=== PATIENT | female | born 1965 | race Caucasian/White ===

== ENCOUNTER → 2019-10-01 10:55 | Outpatient (BNVA) | payer MEDICARE, MEDICAID, SELFPAY | PROVIDERS: Family Provider Nurse Practitioner Family; PCP Nurse Practitioner Family; Referring Provider Family Medicine; Visit Provider Internal Medicine Rheumatology | DX: L40.59 Other psoriatic arthropathy (principal); L03.90 Cellulitis, unspecified; M05.79 Rheumatoid arthritis with rheumatoid factor of multiple sites without organ or systems involvement; L40.0 Psoriasis vulgaris; M79.7 Fibromyalgia; J44.9 Chronic obstructive pulmonary disease, unspecified; F17.200 Nicotine dependence, unspecified, uncomplicated; Z79.52 Long term (current) use of systemic steroids | CPT/HCPCS: 36415; 82565; 84460; 85025; 85651; 86140; 99213 ==

== ENCOUNTER → 2019-10-01 11:49 | Outpatient (BNVA) | payer MEDICARE, MEDICAID, SELFPAY | PROVIDERS: Family Provider Nurse Practitioner Family; PCP Nurse Practitioner Family; Referring Provider Family Medicine; Visit Provider Internal Medicine Rheumatology | DX: M05.79 Rheumatoid arthritis with rheumatoid factor of multiple sites without organ or systems involvement (principal); L40.59 Other psoriatic arthropathy; L03.90 Cellulitis, unspecified; L40.0 Psoriasis vulgaris; M79.7 Fibromyalgia; J44.9 Chronic obstructive pulmonary disease, unspecified; F17.200 Nicotine dependence, unspecified, uncomplicated | CPT/HCPCS: 85025 ==

== ENCOUNTER → 2019-10-15 10:51 | Outpatient (BNVA) | payer MEDICARE, MEDICAID, SELFPAY | PROVIDERS: Family Provider Family Medicine; Visit Provider Nurse Practitioner Family | DX: I51.7 Cardiomegaly (principal); I70.90 Unspecified atherosclerosis; R05 Cough | CPT/HCPCS: 71046; 80053; 85025 ==

== ENCOUNTER → 2019-11-01 15:10 | Outpatient (BNVA) | payer MEDICARE, MEDICAID, SELFPAY | PROVIDERS: Family Provider Family Medicine; PCP Family Medicine; Visit Provider Internal Medicine Rheumatology | DX: M19.90 Unspecified osteoarthritis, unspecified site (principal); Z79.899 Other long term (current) drug therapy; M06.4 Inflammatory polyarthropathy; L30.9 Dermatitis, unspecified; Z71.89 Other specified counseling | CPT/HCPCS: 36415; 84132; 85025; 99214 ==

== ENCOUNTER → 2019-11-01 17:11 | Outpatient (BNVA) | payer MEDICARE, MEDICAID, SELFPAY | PROVIDERS: Family Provider Family Medicine; PCP Family Medicine; Visit Provider Internal Medicine Rheumatology | DX: M19.90 Unspecified osteoarthritis, unspecified site (principal); Z79.899 Other long term (current) drug therapy; M06.4 Inflammatory polyarthropathy; L30.9 Dermatitis, unspecified; Z71.89 Other specified counseling | CPT/HCPCS: 85025 ==

== ENCOUNTER 2019-11-11 12:42 | Outpatient (CLI) | payer MEDICARE, MEDICAID, SELFPAY ==
--- NOTE | 2019-11-11 12:54 | XR_ITS ---
WS: [id number] HAND LEFT TECHNIQUE: 3 views of the left hand CLINICAL INFORMATION: inflammatory arthitis COMPARISON: None. FINDINGS: Normal metacarpals. Normal MCP joint. Metacarpal heads are normal in appearance. Mild IP joint narrow ing.. No evidence of acute fracture or dislocation. Mild osteopenia. Radiocarpal joint: Mild narrowing Carpal bones: Normal. XR/XR hand LT min 3V* [id number] IMPRESSION: Mild IP joint narrowing and osteopenia. No significant erosions.
--- NOTE | 2019-11-11 12:54 | XR_ITS ---
WS: [id number] FOOT RIGHT TECHNIQUE: 3 views of the right foot CLINICAL INFORMATION: inflammatory arthitis COMPARISON: None. FINDINGS: Normal anatomic alignment. Degenerative narrowing at the first DIP and IP joints. No significant eros uli changes. Achilles calcaneal spurring Normal tarsal metatarsal alignment. Normal calcaneus. Normal visualized talar dome. XR/XR foot RT min 3V* [id number] IMPRESSION: No significant erosive changes
--- NOTE | 2019-11-11 12:54 | XR_ITS ---
WS: [id number] HAND RIGHT TECHNIQUE: 3 views of the right hand CLINICAL INFORMATION: inflammatory arthitis COMPARISON: None. FINDINGS: Normal metacarpals. Normal MCP joint. Metacarpal heads are normal in appearance. Mild IP joint narrow ing. Osteopenia.. No evidence of acute fracture or dislocation. Radiocarpal joint: Mild narrowing Carpal bones: Mild degenerative narrowing at the first CMC. IMPRESSION: No significant erosive changes.
--- NOTE | 2019-11-11 12:54 | XR_ITS ---
WS: [id number] FOOT LEFT TECHNIQUE: 3 views of the left foot CLINICAL INFORMATION: inflammatory arthitis COMPARISON: None. FINDINGS: Degenerative narrowing first DIP and IP joints. No significant erosive changes. Osteopenia. Plantar a nd Achilles calcaneal spurring. Normal tarsal metatarsal alignment. Normal visualized talar dome. No acute findings. XR/XR foot LT min 3V* [id number] IMPRESSION: No significant erosive changes
== END 2019-11-11 12:43 | disposition home or self-care (01) ==
LOC: RADWPI 12:46
PROVIDERS: Family Provider Family Medicine; PCP Family Medicine; Visit Provider Internal Medicine Rheumatology
DX: M19.90 Unspecified osteoarthritis, unspecified site (principal); M85.842 Other specified disorders of bone density and structure, left hand
CPT/HCPCS: 73130; 73630

== ENCOUNTER → 2020-01-05 16:30 | Outpatient (BNVA) | payer MEDICARE, MEDICAID, SELFPAY | PROVIDERS: Family Provider Family Medicine; PCP Family Medicine; Visit Provider Family Medicine | DX: J44.9 Chronic obstructive pulmonary disease, unspecified (principal); I10 Essential (primary) hypertension; M62.838 Other muscle spasm; K21.9 Gastro-esophageal reflux disease without esophagitis; M06.9 Rheumatoid arthritis, unspecified; E03.9 Hypothyroidism, unspecified; E78.5 Hyperlipidemia, unspecified; J44.1 Chronic obstructive pulmonary disease with (acute) exacerbation | CPT/HCPCS: 80053; 80061; 84443; 85025 ==

== ENCOUNTER → 2020-02-24 15:22 | Outpatient (BNVA) | payer MEDICARE, MEDICAID, SELFPAY | PROVIDERS: Family Provider Family Medicine; PCP Family Medicine; Visit Provider Internal Medicine Rheumatology | DX: M06.00 Rheumatoid arthritis without rheumatoid factor, unspecified site (principal); M19.90 Unspecified osteoarthritis, unspecified site; L30.9 Dermatitis, unspecified; F17.210 Nicotine dependence, cigarettes, uncomplicated; Z79.52 Long term (current) use of systemic steroids; Z79.899 Other long term (current) drug therapy | CPT/HCPCS: 99214 ==

== ENCOUNTER → 2020-07-03 13:32 | Outpatient (BNVA) | payer MEDICARE, MEDICAID, SELFPAY | PROVIDERS: Family Provider Family Medicine; PCP Family Medicine; Visit Provider Family Medicine | DX: I10 Essential (primary) hypertension (principal); E78.2 Mixed hyperlipidemia; E03.9 Hypothyroidism, unspecified | CPT/HCPCS: 80053; 80061; 84443; 85025 ==

== ENCOUNTER 2020-07-09 16:43 | Emergency (ER) | payer MEDICARE, MEDICAID, SELFPAY ==
[2020-07-09 16:49] VITALS: BP 110/69; PULSE 92; RESP 14; TEMP 36.7; O2SAT 99; BMI 30.2
--- NOTE | 2020-07-09 17:23 | ED_ITS ---
HPI - Skin/Abscess/Foreign Bdy General: Chief complaint: Skin/Abscess/Foreign Body Stated complaint: ABSCESS/SWELLING TO LOWER ABDOMEN Time Seen by Provider: 07/09/20 16:58 Source: patient Mode of arrival: ambulatory Limitations: no limitations History of Present Illness: complaint: rash and abscess/boil Onset (ago): week(s) (1) Severity: moderate Quality: burning Pain Consistency: constant Relieving factors: none Exacerbating factors: none Context: none Associated symptoms: Deny arthralgias, chills, cough, fever(s), itching, myalgias, nausea, rigidity, short of breath or vomiting Review of Systems General: Reports: 10 or more systems reviewed and unremarkable except in HPI and below Const: Denies: fever(s) or chills Eyes: Denies: change in vision or blurry vision ENMT: Denies: throat pain, enlarged tonsils, odynophagia, hoarseness, mouth pain or swelling of lips/tongue Card: Denies: palpitations, irregular heart rhythm, edema or swelling of feet/ankles Resp: Denies: dyspnea, productive cough or non-productive cough GI: Denies: nausea or vomiting : Denies: flank pain, difficulty voiding, dysuria, urinary frequency, urinary urgency or urinary hesitancy Musc: Denies: neck pain, back pain or extremity swelling Skin/Breast: Reports: rash, erythema and sores; Denies: pruritus Neuro: Denies: headache(s), numbness in extremities or weakness in extremities Endo: Denies: polyuria, polydipsia or tired all the time PFSH ED PFSH: Medical History (Reviewed 07/09/20 @ 17:27 by Panfilo Erwin [place] [facility] [facility] [place] Eczema Essential (primary) hypertension Fibromyalgia Hyperlipidemia Immunization counseling Inflammatory arthritis 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 Seronegative rheumatoid arthritis Surgical History (Reviewed 07/09/20 @ 17:27 by Panfilo Erwin MD, [facility] [place] H/O thyroidectomy History of tonsillectomy Hx of cholecystectomy Hx of total cystectomy Family History (Reviewed 07/09/20 @ 17:27 by Panfilo Erwin MD, [facility] [place] Mother Rheumatoid arthritis Father Rheumatoid arthritis Leukemia Denies family history of Lupus Social History (Reviewed 07/09/20 @ 17:27 by Panfilo Erwin MD, [facility] [place] Smoking and tobacco status: current every day smoker cigarettes Packs smoked per day: 0.25 Years cigarettes smoked: 25 Second hand smoke exposure: Yes Alcohol intake: never Marital status: Current occupational status: disabled History of recent travel: No Current gender identity: Female Physical Exam Const: COMMON NORMALS: no acute distress, average body habitus, patient oriented x3, no limitations, healthy appearing, alert and well nourished HENMT: COMMON NORMALS: normocephalic, atraumatic and moist oral mucous membranes HEAD & SCALP: normocephalic and atraumatic Eye: COMMON NORMALS: Equal, round and reactive pupils present, EOMs intact bilaterally, conjunctivae normal and no scleral icterus CONJUNCTIVA: Yes conjunctivae normal PUPIL: Yes Equal, round and reactive pupils present Neck/C-Spine: COMMON NORMALS: no meningeal signs and no JVD Resp: COMMON NORMALS: normal respiratory effort, No retractions, No use of accessory muscles, clear to auscultation bilaterally and percussion normal AUSCULTATION: clear to auscultation bilaterally PERCUSSION: percussion normal Cardio: COMMON NORMALS: no JVD, regular rate, regular rhythm, S1 normal heart sound present, S2 normal heart sound present, No gallops present (Cardio), No clicks present (Cardio), No murmurs present (Cardio), No rub (Cardio) and Peripheral pulses 2+ throughout RATE: regular rate RHYTHM: regular rhythm HEART SOUNDS: S1 normal heart sound present and S2 normal heart sound present PERIPHERAL PULSES: Peripheral pulses 2+ throughout GI: COMMON NORMALS: Normal to inspection, nondistended, normoactive bowel sounds present, Soft to palpation, non-tender, No hepatosplenomegaly present, no masses and no bruits PALPATION: Yes Soft to palpation and Yes No hepatosplenomegaly present Extremity: COMMON NORMALS: normal to inspection, full ROM, capillary refill normal, no calf tenderness and no pedal edema Neuro: COMMON NORMALS: patient oriented x3 SENSORIUM/ORIENTATION: Yes alert MENINGEAL SIGNS: Yes no meningeal signs Skin: COMMON NORMALS: no wounds, turgor normal, no jaundice, no petechiae and no mottling GENERAL SKIN EXAM: turgor normal WOUNDS: Yes wounds noted (There is an area of erythema on her left lower abdominal wall with a central open area. No drainage noted from the wound. The area is tender, indurated, warm. Area of erythema is about 8 cm) Course ED course: Patient with cellulitis of the abdominal wall that is uncomplicated. No indication for I&D. She is given oral antibiotic and pain medication in the ED and discharged home. Vital Signs: Vital signs: Vital Signs Temperature 98.0 F 07/09/20 16:49 Pulse Rate 92 07/09/20 16:49 Respiratory Rate 14 07/09/20 16:49 Blood Pressure 110/69 07/09/20 16:49 Pulse Oximetry 99 07/09/20 16:49 MDM - Skin/Abscess/Foreign Bdy MDM Narrative: Medical decision making narrative: Patient with symptoms consistent with cellulitis of the abdominal wall. The wound is indurated and not ready for an I&D. She is discharged home on oral antibiotics. Medical Records: Attestation: I reviewed the patient's medical records. Discharge Plan Discharge Patient Disposition: Home Clinical Impression: Abdominal wall cellulitis Condition: Stable Prescriptions: New doxycycline hyclate 100 mg capsule 100 mg PO BID 7 Days Qty: 14 RF: 0 [place] 5-325 mg tablet 1 tab PO Q8H PRN (Reason: pain) Qty: 6 RF: 0 Continued albuterol sulfate 2.5 mg /3 mL (0.083 %) solution for nebulization 2.5 mg INHALATION Q4H PRN (Reason: shortness of breath or wheezing) Qty: 90 RF: 3 albuterol sulfate [Ventolin HFA] 90 mcg/actuation HFA aerosol inhaler 2 puff INHALATION QID PRN (Reason: shortness of breath or wheezing) Qty: 18 RF: 3 folic acid 1 mg tablet 1 mg PO QDAY Qty: 90 RF: 3 methotrexate sodium 2.5 mg tablet See Rx Instructions PO .COMPLEX Qty: 40 RF: 3 prednisone 10 mg tablet See Rx Instructions PO QDAY Qty: 40 RF: 3 triamcinolone acetonide 0.1 % ointment 1 applic TOPICAL BID Qty: 30 RF: 3 atorvastatin 40 mg tablet 40 mg PO DAILY Qty: 30 RF: 4 carvedilol 25 mg tablet 25 mg PO BID Qty: 60 RF: 4 cholecalciferol (vitamin D3) 50 mcg (2,000 unit) tablet 2,000 unit PO DAILY Qty: 30 RF: 5 clonidine HCl 0.1 mg tablet 0.1 mg PO TID Qty: 90 RF: 5 clopidogrel 75 mg tablet 75 mg PO QDAY Qty: 30 RF: 5 cyclobenzaprine 10 mg tablet 10 mg PO BID PRN (Reason: muscle spasm) Qty: 60 RF: 2 diltiazem HCl [Cardizem] 30 mg tablet 30 mg PO BID Qty: 60 RF: 5 fluoxetine 20 mg capsule 40 mg PO QDAY Qty: 60 RF: 2 Trelegy Ellipta 100-62.5-25 mcg blister with device 1 inh INHALATION DAILY Qty: 28 RF: 3 hydroxyzine HCl 25 mg tablet 25 mg PO QID PRN (Reason: anxiety) Qty: 120 RF: 2 levothyroxine 88 mcg capsule 88 mcg PO DAILY Qty: 30 RF: 5 pantoprazole 40 mg tablet,delayed release (DR/EC) 40 mg PO DAILY Qty: 30 RF: 3 potassium chloride 20 mEq tablet extended release 20 meq PO DAILY Qty: 30 RF: 2 Claritin-D 12 Hour 5-120 mg tablet extended release 12 hr 1 tab PO Q12H Qty: 30 RF: 1 mupirocin calcium 2 % cream 1 applic TOPICAL TID Qty: 30 RF: 0 Discharge Orders: Discharge Order (Routine); Ordered 07/09/20 Ordered By: Panfilo Erwin Referrals: Genesis Ochoa MD [Primary Care Provider] - 1-3 days Discharge Diet: Usual diet Discharge Activity: Resume usual activity Patient Instructions: Cellulitis (ED) Activity Restrictions/Additional Instructions: Return for any new or worsening symptoms. Take the medications as prescribed. Follow-up with your primary care provider within 3 days. Coding Level of Care Code ED Car Customizer for Chg Fwd Exam Comprehensive
[2020-07-09] MEDS: doxycycline 100 mg Tablet PO (17:45)
[2020-07-09] MEDS: HYDROcodone-acetaminophen 5-325 mg Tablet 1 TAB PO (17:45)
[2020-07-09 18:29] VITALS: BP 116/74; PULSE 75; RESP 18; O2SAT 98
== END 2020-07-09 18:37 | disposition home or self-care (01) ==
PROVIDERS: Emergency Provider Family Medicine; PCP Family Medicine
DX: L03.311 Cellulitis of abdominal wall (principal); Z79.02 Long term (current) use of antithrombotics/antiplatelets; I10 Essential (primary) hypertension; E78.5 Hyperlipidemia, unspecified; F17.210 Nicotine dependence, cigarettes, uncomplicated
CPT/HCPCS: 12345; 99281; 99283

== ENCOUNTER 2020-07-12 18:08 | Emergency (ER) | payer MEDICARE, MEDICAID, SELFPAY ==
[2020-07-12 18:10] VITALS: BP 163/65; PULSE 90; RESP 20; TEMP 36.6; O2SAT 96; BMI 30.2
--- NOTE | 2020-07-12 18:56 | W.ED.SKABFB ---
HPI - Skin/Abscess/Foreign Bdy General: Chief complaint: Skin/Abscess/Foreign Body Stated complaint: abcess on abd Time Seen by Provider: 07/12/20 18:34 History of Present Illness: HPI narrative: Patient returns the ER for recheck her abdominal wound. She not sure what the wound was caused from but she said did not feel like it is improving any MD complaint: insect bite/sting Onset (ago): day(s) Tetanus up to date: yes Severity: mild Severity scale (1-10): 5 Quality: burning Pain Consistency: constant Relieving factors: none Exacerbating factors: none Context: none Associated symptoms: Reports no associated symptoms; Deny chills, fever(s), nausea or vomiting Treatments prior to arrival: attempted to drain pus at home Review of Systems Const: Denies: fever(s), chills or body aches Eyes: Denies: change in vision or blurry vision ENMT: Denies: throat pain or nasal congestion Card: Denies: chest pain or dyspnea on exertion Resp: Denies: dyspnea, productive cough or non-productive cough GI: Denies: abdominal pain, nausea or vomiting Musc: Denies: extremity pain Skin/Breast: Reports: erythema (Center of her abdomen seems to be spreading somewhat not really draining much patient is try to squeeze on get stuff out but not anything out know what it was caused by either) and skin tenderness; Denies: rash Neuro: Denies: headache(s) Psych: Denies: anxiety or depression Lewis/Lymph: Denies: easy bruising PFSH ED PFSH: Medical History (Updated 07/12/20 @ 18:54 by YOHANNES Watters) Eczema Essential (primary) hypertension Fibromyalgia Hyperlipidemia Immunization counseling Inflammatory arthritis Other [facility] (current) drug therapy Seronegative rheumatoid arthritis Surgical History H/O thyroidectomy History of tonsillectomy Hx of cholecystectomy Hx of total cystectomy Family History Mother Rheumatoid arthritis Father Rheumatoid arthritis Leukemia Denies family history of Lupus Social History (Reviewed 07/09/20 @ 17:27 by Panfilo Erwin MD, [facility] [place] Smoking and tobacco status: current every day smoker cigarettes Packs smoked per day: 0.25 Years cigarettes smoked: 25 Second hand smoke exposure: Yes Alcohol intake: never Marital status: Current occupational status: disabled History of recent travel: No Current gender identity: Female Physical Exam Const: COMMON NORMALS: no acute distress Psych: COMMON NORMALS: mental status grossly normal Skin: WOUNDS: Yes wounds noted (Has a central area of slight eschar that opened up after lidocaine prep and Betadine and there is no pus in the wound and 110 a culture redness is about half dollar size with eschar about pea-sized in the center the redness spreads out across her stretch larson probably about 10 or 12 inches all very surface slightly tender) Course Vital Signs: Vital signs: Vital Signs Temperature 97.9 F 07/12/20 18:10 Pulse Rate 90 07/12/20 18:10 Respiratory Rate 20 H 07/12/20 18:10 Blood Pressure 163/65 07/12/20 18:10 Pulse Oximetry 96 07/12/20 18:10 Discharge Plan Discharge Patient Disposition: Home Clinical Impression: Brown recluse spider bite Qualifiers: Encounter type: subsequent encounter Injury intent: accidental or unintentional Qualified Code(s): T63.331D - Toxic effect of venom of brown recluse spider, accidental (unintentional), subsequent encounter Condition: Stable Prescriptions: New hydrocodone-acetaminophen 7.5-325 mg tablet 1 tab PO TID PRN (Reason: pain) Qty: 10 RF: 0 No Action albuterol sulfate 2.5 mg /3 mL (0.083 %) solution for nebulization 2.5 mg INHALATION Q4H PRN (Reason: shortness of breath or wheezing) Qty: 90 RF: 3 albuterol sulfate [Ventolin HFA] 90 mcg/actuation HFA aerosol inhaler 2 puff INHALATION QID PRN (Reason: shortness of breath or wheezing) Qty: 18 RF: 3 folic acid 1 mg tablet 1 mg PO QDAY Qty: 90 RF: 3 methotrexate sodium 2.5 mg tablet See Rx Instructions PO .COMPLEX Qty: 40 RF: 3 prednisone 10 mg tablet See Rx Instructions PO QDAY Qty: 40 RF: 3 triamcinolone acetonide 0.1 % ointment 1 applic TOPICAL BID Qty: 30 RF: 3 atorvastatin 40 mg tablet 40 mg PO DAILY Qty: 30 RF: 4 carvedilol 25 mg tablet 25 mg PO BID Qty: 60 RF: 4 cholecalciferol (vitamin D3) 50 mcg (2,000 unit) tablet 2,000 unit PO DAILY Qty: 30 RF: 5 clonidine HCl 0.1 mg tablet 0.1 mg PO TID Qty: 90 RF: 5 clopidogrel 75 mg tablet 75 mg PO QDAY Qty: 30 RF: 5 cyclobenzaprine 10 mg tablet 10 mg PO BID PRN (Reason: muscle spasm) Qty: 60 RF: 2 diltiazem HCl [Cardizem] 30 mg tablet 30 mg PO BID Qty: 60 RF: 5 fluoxetine 20 mg capsule 40 mg PO QDAY Qty: 60 RF: 2 Trelegy Ellipta 100-62.5-25 mcg blister with device 1 inh INHALATION DAILY Qty: 28 RF: 3 hydroxyzine HCl 25 mg tablet 25 mg PO QID PRN (Reason: anxiety) Qty: 120 RF: 2 levothyroxine 88 mcg capsule 88 mcg PO DAILY Qty: 30 RF: 5 pantoprazole 40 mg tablet,delayed release (DR/EC) 40 mg PO DAILY Qty: 30 RF: 3 potassium chloride 20 mEq tablet extended release 20 meq PO DAILY Qty: 30 RF: 2 Claritin-D 12 Hour 5-120 mg tablet extended release 12 hr 1 tab PO Q12H Qty: 30 RF: 1 mupirocin calcium 2 % cream 1 applic TOPICAL TID Qty: 30 RF: 0 prednisone 10 mg tablet 10 mg PO DAILY Qty: 30 RF: 0 doxycycline hyclate 100 mg capsule 100 mg PO BID 7 Days Qty: 14 RF: 0 [place] 5-325 mg tablet 1 tab PO Q8H PRN (Reason: pain) Qty: 6 RF: 0 Discharge Orders: Discharge Order (Routine); Ordered 07/12/20 Ordered By: Jacky Gu Referrals: Genesis Ochoa MD [Primary Care Provider] - Discharge Diet: Usual diet Discharge Activity: Resume usual activity Patient Instructions: Brown Recluse Spider Bite (ED) Activity Restrictions/Additional Instructions: Follow-up with medical provider as directed. Take medications as prescribed. Return to the ER or your medical provider if condition worsens. Please read and understand discharge instructions. If any questions ask please. Follow-up with your family medical provider for recheck in about 5 to 6 days Coding Level of Care Code ED Accounting Recruiter for Dom Casas
[2020-07-12] MEDS: HYDROcodone-acetaminophen 7.5-325 mg Tablet 1 TAB PO (19:17)
--- NOTE | 2020-07-12 19:25 | PC.NURSE ---
abdominal wound dressed with adhesive telfa pad with instructions to keep dressing in place for 24hrs then leave wound open to air while at home. Pt verbalized understanding
[2020-07-12 19:28] VITALS: BP 163/95; PULSE 90; RESP 18; O2SAT 96
== END 2020-07-12 19:15 | disposition home or self-care (01) ==
PROVIDERS: Emergency Provider Nurse Practitioner Family; PCP Family Medicine
DX: T63.331A Toxic effect of venom of brown recluse spider, accidental (unintentional), initial encounter (principal); Z79.02 Long term (current) use of antithrombotics/antiplatelets; I10 Essential (primary) hypertension; E78.5 Hyperlipidemia, unspecified; F17.210 Nicotine dependence, cigarettes, uncomplicated
CPT/HCPCS: 12345; 99282; 99283

== ENCOUNTER → 2020-07-18 10:27 | Outpatient (BNVA) | payer MEDICARE, MEDICAID, SELFPAY | PROVIDERS: PCP Family Medicine; Visit Provider Internal Medicine Rheumatology | DX: M06.00 Rheumatoid arthritis without rheumatoid factor, unspecified site (principal); L53.9 Erythematous condition, unspecified; Z79.899 Other long term (current) drug therapy; Z79.52 Long term (current) use of systemic steroids; M06.4 Inflammatory polyarthropathy; I51.7 Cardiomegaly; F17.210 Nicotine dependence, cigarettes, uncomplicated; L30.9 Dermatitis, unspecified | CPT/HCPCS: 99214 ==

== ENCOUNTER 2020-09-02 20:15 | Inpatient (IN) | payer MEDICARE, MEDICAID, SELFPAY ==
[2020-09-02] VITALS (8 sets, daily range): BP systolic 112–127; BP diastolic 69–109; PULSE 92–104; RESP 19–43; TEMP 38.4; O2SAT 94–97; BMI 28.3
--- NOTE | 2020-09-02 20:53 | XRR_ITS ---
PROCEDURE INFORMATION: Exam: XR Chest, 1 View Exam date and time: 09/02/2020 10:10 PM Age: 54 years old Clinical indication: Cough; Additional info: Respiratory distress/ covid SX TECHNIQUE: Imaging protocol: XR of the chest Views: 1 view. COMPARISON: CR XR chest 2V* [id number] 10/15/2019 10:57 AM FINDINGS: Lungs: There are ground-glass opacity seen in the right lower hemithorax with some consolidation seen superimposed over the right hemidiaphragm, findings compatible with a right basilar pneumonia. Pleural space: Unremarkable. No pleural effusion. No pneumothorax. Heart/Mediastinum: Unremarkable. No cardiomegaly. Bones/joints: Unremarkable. XR/XR chest 1V portable [id number] IMPRESSION: Ground-glass opacities in the right lower hemithorax with consolidation superimposed over the right hemidiaphragm, findings compatible with a right basilar interstitial pneumonia. Imaging features can be seen with COVID-19 pneumonia, though are nonspecific and can occur with a variety of infectious and noninfectious processes.
--- NOTE | 2020-09-02 21:00 | ECG_ITS ---
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 Measurements Intervals [place] Rate: 96 P: 50 ME: 164 QRS: 24 QRSD: 89 T: 40 QT: 383 QTc: 484 Interpretive Statements SINUS RHYTHM POSSIBLE LEFT ATRIAL ENLARGEMENT [-0.1mV P WAVE IN V1/V2] NONSPECIFIC ST & T-WAVE ABNORMALITY Compared to ECG 03/20/2015 18:03:02 No significant changes Electronically Signed On 09-03-2020 10:59:11 OPERATIONS MANAGER by Gui Conway M.D. [email or web address]
[2020-09-02] MEDS: albuterol 8 gm MDI 2 PUFF INHALATION (21:39)
[2020-09-02 21:44] LABS: Basophils # 0.1 10^3/uL (0.0-0.1); Basophils % 0.2 %; Eosinophils # 0.1 10^3/uL (0.0-0.8); Eosinophils % 0.3 %; Hematocrit 38.3 % (37.0-47.0); Lymphocytes # 1.3 10^3/uL (0.8-4.8); Lymphocytes % 4.4 %; Mean Corpuscular HGB Conc 31.3 g/dL (30.0-36.0); Mean Corpuscular Hemoglobin 30.2 pg (28.0-34.0); Mean Corpuscular Volume 96.2 fL (81-99); Mean Platelet Volume 10.2 fL (7.4-10.4); Monocytes # 3.4 10^3/uL (0.2-0.9); Monocytes % 11.6 %; Neutrophils # 23.74 10^3/uL (1.8-7.7); Neutrophils % 82.1 %; Nucleated Red Blood Cells % 0 %; Platelet Count 369 10^3/cmm (130-400); Red Blood Count 3.98 10^6/uL (4.1-5.3); Red Cell Distribution Width 14.6 % (12.1-15.1); White Blood Count 28.9 10^3/uL (4.0-10.0)
[2020-09-02] MEDS: acetaminophen 325 mg Tablet 1000 MG PO (21:51)
[2020-09-02] MEDS: dexamethasone 4 mg/mL INJ 10 MG IM (21:53)
--- NOTE | 2020-09-02 21:53 | ED_ITS ---
Documented by User: Pro Middleton MD 09/02/20 23:56 HPI - COVID General: Chief Complaint: COVID symptoms Stated Complaint: ABD PAIN / FEVER / SHORTNESS OF BREATH Time Seen by Provider: 09/02/20 20:42 Triage information: Has fever, cough or shortness of breath . No known COVID + exposure last 14 days History of Present Illness: HPI Narrative: Patient is a 54-year-old female with past medical history of COPD who comes to the ER complaining of severe shortness of breath and respiratory distress with a fever of 101.1. She says her right lower ribs are hurting badly and it hurts to take a deep breath. BiPAP was placed shortly after arrival and her respiratory effort has improved significantly. No known history of Covid COVID 19 common symptoms: positive fever(s), chills, cough, non-productive cough, dyspnea, fatigue and body aches; negative headache(s), throat pain, nasal congestion, nausea, vomiting or diarrhea COVID 19 other sytmptoms: positive pleuritic pain, requiring oxygen and respiratory distress; negative chest pain or confusion Severity: severe and rapidly worsening Pertinent comorbid conditions: COPD/respiratory disease COVID Results: SARS-CoV-2 Antigen (Rapid) Negative (Negative) 09/02/20 21:50 09/02/20 Review of Systems General: Reports: 10 or more systems reviewed and unremarkable except in HPI and below Const: Reports: fever(s), chills, body aches and fatigue Eyes: Denies: change in vision, blurry vision or eye redness ENMT: Denies: throat pain, swelling of lips/tongue, ear or mastoid pain or nasal congestion Card: Denies: chest pain Resp: Reports: dyspnea, non-productive cough, wheezing and pain on inspiration GI: Denies: nausea, vomiting or diarrhea : Denies: flank pain, difficulty voiding, urinary frequency or urinary urgency Musc: Denies: neck pain, back pain, extremity pain, joint pain, joint redness, limited range of motion or muscle weakness Skin/Breast: Denies: rash, pruritus, erythema, skin pain or skin tenderness Neuro: Denies: headache(s), numbness in extremities, weakness in extremities, sensory changes, difficulty walking, dizziness, confusion or Slurred speech present Psych: Denies: anxiety or depression Endo: Denies: polyuria All/Imm: Denies: urticaria, throat swelling or tongue swelling PFSH ED PFSH: Medical History Aortic regurgitation Eczema Essential (primary) hypertension Fibromyalgia High risk medication use Hyperlipidemia Immunization counseling Inflammatory arthritis Other correction (current) drug therapy Seronegative rheumatoid arthritis Surgical History H/O thyroidectomy History of tonsillectomy Hx of cholecystectomy Hx of total cystectomy Family History Mother Rheumatoid arthritis Father Rheumatoid arthritis Leukemia Denies family history of Lupus Social History Smoking and tobacco status: current every day smoker cigarettes Packs smoked per day: 0.25 Years cigarettes smoked: 25 Second hand smoke exposure: Yes Alcohol intake: never Marital status: Current occupational status: disabled History of recent travel: No Current gender identity: Female Physical Exam Narrative: EXAM NARRATIVE: On arrival she is in moderate respiratory distress with very shallow respirations and tachypnea. Tachycardia. Wheezes audible. She is splinting and using accessory muscles to respirate as well. Const: COMMON NORMALS: average body habitus, patient oriented x3, no limitations, healthy appearing, alert and well nourished GENERAL APPEARANCE: in distress, anxious, disheveled and ill appearing ORIENTATION/CONSCIOUSNESS: Yes awake, Yes oriented to person, Yes oriented to place and Yes oriented to time HENMT: COMMON NORMALS: normocephalic, external ears normal and Normal external nose present HEAD & SCALP: normal to inspection and normocephalic NOSE: Normal external nose present EXTERNAL EAR: Yes external ears normal MOUTH: Normal oral and palatal mucosa present THROAT: posterior oropharynx normal Eye: COMMON NORMALS: Equal, round and reactive pupils present and EOMs intact bilaterally GENERAL EYE: appearance normal, both eyes and all related structures PUPIL: Yes Equal, round and reactive pupils present Neck/C-Spine: COMMON NORMALS: full ROM, no lymphadenopathy, no meningeal signs and no JVD GENERAL: Yes normal visual inspection Lymph: LYMPHATIC: no lymphadenopathy noted Chest: COMMONS NORMALS: normal inspection of the chest and normal palpation of entire chest wall Resp: EFFORT & INSPECTION: Yes tachypneic, Yes respiratory distress, Yes decreased respiratory effort, Yes pursed lip breathing, Yes labored, Yes Actively coughing, Yes paradoxical thoraco-abdominal movements, Yes tripod positioning, Yes prolonged expiratory phase and Yes other (shallow respirations.) AUSCULTATION: diminished lung sounds Cardio: COMMON NORMALS: no JVD, regular rhythm, S1 normal heart sound present, S2 normal heart sound present and Peripheral pulses 2+ throughout RATE: tachycardic RHYTHM: regular rhythm HEART SOUNDS: S1 normal heart sound present and S2 normal heart sound present PERIPHERAL PULSES: Peripheral pulses 2+ throughout GI: COMMON NORMALS: Normal to inspection, nondistended, normoactive bowel sounds present, Soft to palpation, non-tender and no masses INSPECTION: Yes normal to inspection PALPATION: Yes Soft to palpation : COMMON NORMALS: Yes no CVA tenderness BLADDER/KIDNEY EXAM: Yes no CVA tenderness Back/Pelvis: COMMON NORMALS: no CVA tenderness, thoracic and lumbar spine normal to inspection, no thoracic nor lumbar tenderness and thoraco-lumbar ROM normal Extremity: COMMON NORMALS: normal to inspection, full ROM, capillary refill normal, no joint enlargement and no pedal edema GENERAL: Yes normal exam except as noted Neuro: COMMON NORMALS: patient oriented x3, CN's II-XII intact bilaterally, moves all extremities, no focal motor deficits, no sensory deficits noted and gait normal SENSORIUM/ORIENTATION: Yes alert, Yes oriented to person, Yes oriented to place and Yes oriented to time MENINGEAL SIGNS: Yes no meningeal signs Psych: COMMON NORMALS: mental status grossly normal, cooperative, normal a ffect and speech normal ATTITUDE: Yes calm SPEECH: Yes normal speech OTHER: anxiety Skin: COMMON NORMALS: no rashes or lesions noted GENERAL SKIN EXAM: no rashes or lesions noted Course Vital Signs: Vital signs: Vital Signs Temperature 97.9 F 09/03/20 05:06 Pulse Rate 78 09/03/20 05:06 Respiratory Rate 21 H 09/03/20 05:06 Blood Pressure 125/62 09/03/20 05:06 Pulse Oximetry 93 09/03/20 05:06 MDM - COVID MDM Narrative: Medical decision making narrative: The patient came in in moderate respiratory distress likely related to COPD and right lower lobe pneumonia. She was placed on BiPAP, levofloxacin, albuterol and her respiratory status greatly improved though she is still requiring BiPAP. She is awaiting chest CT to further evaluate the right lower lobe. Transferred care to Dr. Harrison at 11:53 PM awaiting the image and admission to the ICU. Lab Data: Labs: Lab Results 09/02/20 09/02/20 09/02/20 Range/Units 21:31 21:31 21:31 WBC 28.9 H (4.0-10.0) 10^3/ uL RBC 3.98 L (4.1-5.3) 10^6/u L Hgb 12.0 (11.5-15.3) g/dL Hct 38.3 (37.0-47.0) % MCV 96.2 (81-99) fL MCH 30.2 (28.0-34.0) pg MCHC 31.3 (30.0-36.0) g/dL RDW 14.6 (12.1-15.1) % Plt Count 369 (130-400) 10^3/c mm MPV 10.2 (7.4-10.4) fL Neut % (Auto) 82.1 % Lymph % (Auto) 4.4 % [place] % (Auto) 11.6 % Eos % (Auto) 0.3 % Baso % (Auto) 0.2 % Neut # (Auto) 23.74 H (1.8-7.7) 10^3/u L Lymph # (Auto) 1.3 (0.8-4.8) 10^3/u L [place] # (Auto) 3.4 H (0.2-0.9) 10^3/u L Eos # (Auto) 0.1 (0.0-0.8) 10^3/u L Baso # (Auto) 0.1 (0.0-0.1) 10^3/u L Nucleated RBC % (a uto) 0 % Nucleated RBCs # 0.0 /100WBC D-Dimer 1.11 H (0-0.59) ug/mIFE U Specimen Type Sample Site ABG pH (7.35-7.45) ABG pCO2 (35-45) mmHg ABG pO2 (80.0-100.0) mmH g ABG HCO3 (22-26) mmol/L ABG O2 Saturation ABG Base Excess (-2.0-2.0) mmol/ L Rudy Test A-a O2 Gradient (5-10) mmHg Hematocrit (37-47) % Hgb O2 Saturation (95-100) % Carboxyhemoglobin (0.4-20.1) %THgb Methemoglobin (0.4-1.5) % Total Hemoglobin (12-16) g/dL Ionized Calcium (1.1-1.4) mmol/L O2 Delivery Device FiO2 % Hse Coordinator ID Sodium 133 L (136-145) mmol/L Potassium 3.0 L (3.5-5.1) mmol/L Chloride 91 L (98-107) mmol/L Carbon Dioxide 33 H (22-29) mmol/L Anion Gap 12.0 (5-19) BUN 6 (6-20) mg/dL Creatinine 0.7 (0.5-0.9) mg/dL GFR Calculation 86.6 L (90-130) mL/min Glucose 98 (65-115) mg/dL Calculated Osmolal ity 274 L (285-295) mOsm/k g Lactic Acid (0.5-2.2) mmol/L Calcium 9.1 (8.5-10.5) mg/dL Magnesium (1.7-2.3) mg/dL Total Bilirubin 0.6 (0.15-1.2) mg/dL AST 8 (0-32) U/L ALT 6 (0-33) U/L Alkaline Phosphata se 127 H (35-105) IU/L Troponin T Baselin e (0-10) ng/L Troponin T 120 Min [place] (0-10) ng/L Delta Troponin T (0-10) ABS# NT-Pro-B Natriuret Pep 527 H (0-125) pg/mL Total Protein 6.8 (6.6-8.7) g/dL Albumin 3.6 (3.5-5.2) g/dL Globulin 3.2 (1.3-4.6) g/dL Influenza Type A A g (Negative) Influenza Type B A g (Negative) SARS-CoV-2 Ag (Rap id) (Negative) 09/02/20 09/02/20 09/02/20 Range/Units 21:31 21:31 21:31 WBC (4.0-10.0) 10^3/ uL RBC (4.1-5.3) 10^6/u L Hgb (11.5-15.3) g/dL Hct (37.0-47.0) % MCV (81-99) fL MCH (28.0-34.0) pg MCHC (30.0-36.0) g/dL RDW (12.1-15.1) % Plt Count (130-400) 10^3/c mm MPV (7.4-10.4) fL Neut % (Auto) % Lymph % (Auto) % [place] % (Auto) % Eos % (Auto) % Baso % (Auto) % Neut # (Auto) (1.8-7.7) 10^3/u L Lymph # (Auto) (0.8-4.8) 10^3/u L [place] # (Auto) (0.2-0.9) 10^3/u L Eos # (Auto) (0.0-0.8) 10^3/u L Baso # (Auto) (0.0-0.1) 10^3/u L Nucleated RBC % (a uto) % Nucleated RBCs # /100WBC D-Dimer (0-0.59) ug/mIFE U Specimen Type Sample Site ABG pH (7.35-7.45) ABG pCO2 (35-45) mmHg ABG pO2 (80.0-100.0) mmH g ABG HCO3 (22-26) mmol/L ABG O2 Saturation ABG Base Excess (-2.0-2.0) mmol/ L Rudy Test A-a O2 Gradient (5-10) mmHg Hematocrit (37-47) % Hgb O2 Saturation (95-100) % Carboxyhemoglobin (0.4-20.1) %THgb Methemoglobin (0.4-1.5) % Total Hemoglobin (12-16) g/dL Ionized Calcium (1.1-1.4) mmol/L O2 Delivery Device FiO2 % Hse Coordinator ID Sodium (136-145) mmol/L Potassium (3.5-5.1) mmol/L Chloride (98-107) mmol/L Carbon Dioxide (22-29) mmol/L Anion Gap (5-19) BUN (6-20) mg/dL Creatinine (0.5-0.9) mg/dL GFR Calculation (90-130) mL/min Glucose (65-115) mg/dL Calculated Osmolal ity (285-295) mOsm/k g Lactic Acid 0.8 (0.5-2.2) mmol/L Calcium (8.5-10.5) mg/dL Magnesium 1.6 L (1.7-2.3) mg/dL Total Bilirubin (0.15-1.2) mg/dL AST (0-32) U/L ALT (0-33) U/L Alkaline Phosphata se (35-105) IU/L Troponin T Baselin e 8 (0-10) ng/L Troponin T 120 Min [place] (0-10) ng/L Delta Troponin T (0-10) ABS# NT-Pro-B Natriuret Pep (0-125) pg/mL Total Protein (6.6-8.7) g/dL Albumin (3.5-5.2) g/dL Globulin (1.3-4.6) g/dL Influenza Type A A g (Negative) Influenza Type B A g (Negative) SARS-CoV-2 Ag (Rap id) (Negative) 09/02/20 09/02/20 09/02/20 Range/Units 21:40 21:50 22:34 WBC (4.0-10.0) 10^3/ uL RBC (4.1-5.3) 10^6/u L Hgb (11.5-15.3) g/dL Hct (37.0-47.0) % MCV (81-99) fL MCH (28.0-34.0) pg MCHC (30.0-36.0) g/dL RDW (12.1-15.1) % Plt Count (130-400) 10^3/c mm MPV (7.4-10.4) fL Neut % (Auto) % Lymph % (Auto) % [place] % (Auto) % Eos % (Auto) % Baso % (Auto) % Neut # (Auto) (1.8-7.7) 10^3/u L Lymph # (Auto) (0.8-4.8) 10^3/u L [place] # (Auto) (0.2-0.9) 10^3/u L Eos # (Auto) (0.0-0.8) 10^3/u L Baso # (Auto) (0.0-0.1) 10^3/u L Nucleated RBC % (a uto) % Nucleated RBCs # /100WBC D-Dimer (0-0.59) ug/mIFE U Specimen Type Arterial Sample Site L radial ABG pH 7.42 (7.35-7.45) ABG pCO2 52.3 H (35-45) mmHg ABG pO2 61.1 L (80.0-100.0) mmH g ABG HCO3 33.9 H (22-26) mmol/L ABG O2 Saturation 92.1 ABG Base Excess 8.0 H (-2.0-2.0) mmol/ L Rudy Test Pos A-a O2 Gradient 3.2 L (5-10) mmHg Hematocrit 37.6 (37-47) % Hgb O2 Saturation 90.2 L (95-100) % Carboxyhemoglobin 2.0 (0.4-20.1) %THgb Methemoglobin 0.0 L (0.4-1.5) % Total Hemoglobin 12.3 (12-16) g/dL Ionized Calcium 1.2 (1.1-1.4) mmol/L O2 Delivery Device Bipap FiO2 60.0 % Hse Coordinator ID Nabde Sodium 136.0 (136-145) mmol/L Potassium 3.0 L (3.5-5.1) mmol/L Chloride (98-107) mmol/L Carbon Dioxide (22-29) mmol/L Anion Gap (5-19) BUN (6-20) mg/dL Creatinine (0.5-0.9) mg/dL GFR Calculation (90-130) mL/min Glucose 99.0 (65-115) mg/dL Calculated Osmolal ity (285-295) mOsm/k g Lactic Acid (0.5-2.2) mmol/L Calcium (8.5-10.5) mg/dL Magnesium (1.7-2.3) mg/dL Total Bilirubin (0.15-1.2) mg/dL AST (0-32) U/L ALT (0-33) U/L Alkaline Phosphata se (35-105) IU/L Troponin T Baselin e (0-10) ng/L Troponin T 120 Min [place] (0-10) ng/L Delta Troponin T (0-10) ABS# NT-Pro-B Natriuret Pep (0-125) pg/mL Total Protein (6.6-8.7) g/dL Albumin (3.5-5.2) g/dL Globulin (1.3-4.6) g/dL Influenza Type A A g Negative (Negative) Influenza Type B A g Negative (Negative) SARS-CoV-2 Ag (Rap id) Negative (Negative) 09/02/20 Range/Units 22:59 WBC (4.0-10.0) 10^3/ uL RBC (4.1-5.3) 10^6/u L Hgb (11.5-15.3) g/dL Hct (37.0-47.0) % MCV (81-99) fL MCH (28.0-34.0) pg MCHC (30.0-36.0) g/dL RDW (12.1-15.1) % Plt Count (130-400) 10^3/c mm MPV (7.4-10.4) fL Neut % (Auto) % Lymph % (Auto) % [place] % (Auto) % Eos % (Auto) % Baso % (Auto) % Neut # (Auto) (1.8-7.7) 10^3/u L Lymph # (Auto) (0.8-4.8) 10^3/u L [place] # (Auto) (0.2-0.9) 10^3/u L Eos # (Auto) (0.0-0.8) 10^3/u L Baso # (Auto) (0.0-0.1) 10^3/u L Nucleated RBC % (a uto) % Nucleated RBCs # /100WBC D-Dimer (0-0.59) ug/mIFE U Specimen Type Sample Site ABG pH (7.35-7.45) ABG pCO2 (35-45) mmHg ABG pO2 (80.0-100.0) mmH g ABG HCO3 (22-26) mmol/L ABG O2 Saturation ABG Base Excess (-2.0-2.0) mmol/ L Rudy Test A-a O2 Gradient (5-10) mmHg Hematocrit (37-47) % Hgb O2 Saturation (95-100) % Carboxyhemoglobin (0.4-20.1) %THgb Methemoglobin (0.4-1.5) % Total Hemoglobin (12-16) g/dL Ionized Calcium (1.1-1.4) mmol/L O2 Delivery Device FiO2 % Hse Coordinator ID Sodium (136-145) mmol/L Potassium (3.5-5.1) mmol/L Chloride (98-107) mmol/L Carbon Dioxide (22-29) mmol/L Anion Gap (5-19) BUN (6-20) mg/dL Creatinine (0.5-0.9) mg/dL GFR Calculation (90-130) mL/min Glucose (65-115) mg/dL Calculated Osmolal ity (285-295) mOsm/k g Lactic Acid (0.5-2.2) mmol/L Calcium (8.5-10.5) mg/dL Magnesium (1.7-2.3) mg/dL Total Bilirubin (0.15-1.2) mg/dL AST (0-32) U/L ALT (0-33) U/L Alkaline Phosphata se (35-105) IU/L Troponin T Baselin e (0-10) ng/L Troponin T 120 Min [place] 7.53 (0-10) ng/L Delta Troponin T -0.47 L (0-10) ABS# NT-Pro-B Natriuret Pep (0-125) pg/mL Total Protein (6.6-8.7) g/dL Albumin (3.5-5.2) g/dL Globulin (1.3-4.6) g/dL Influenza Type A A g (Negative) Influenza Type B A g (Negative) SARS-CoV-2 Ag (Rap id) (Negative) COVID Results: SARS-CoV-2 Antigen (Rapid) Negative (Negative) 09/02/20 21:50 09/02/20 Discharge Plan Discharge Patient Disposition: Admitted As Inpatient Admit Provider: Jennifer Bailey Clinical Impression: Acute hypercapnic respiratory failure COPD (chronic obstructive pulmonary disease) Qualifiers: COPD type: COPD with acute exacerbation Qualified Code(s): J44.1 - Chronic obstructive pulmonary disease with (acute) exacerbation Condition: Stable Sign Out Sign Out Data: Patient Sign Out occurred on 09/03/20 at 00:11. Patient's care was discussed, and care was transferred from Pro Middleton MD to Yenny Harrison. Sign Out Comment: Case turned over to Dr. Harrison at 1152 PM. 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 Seronegative rheumatoid arthritis Surgical History H/O thyroidectomy History of tonsillectomy Hx of cholecystectomy Hx of total cystectomy Family History Mother Rheumatoid arthritis Father Rheumatoid arthritis Leukemia Denies family history of Lupus Social History Smoking and tobacco status: current every day smoker cigarettes Packs smoked per day: 0.25 Years cigarettes smoked: 25 Second hand smoke exposure: Yes Alcohol intake: never Marital status: Current occupational status: disabled History of recent travel: No Current gender identity: Female Course Vital Signs: Vital signs: Vital Signs Temperature 97.9 F 09/03/20 05:06 Pulse Rate 78 09/03/20 05:06 Respiratory Rate 21 H 09/03/20 05:06 Blood Pressure 125/62 09/03/20 05:06 Pulse Oximetry 93 12/27/20 05:06 MDM - COVID MDM Narrative: Medical decision making narrative: Case inherited by me at change of shift from Dr. Montero. Please see his note for his history, physical exam and medical decision-making notes. The case was endorsed to Dr. Bailey who agrees admit the patient for further evaluation and care. Upon my assessment the patient is stable on BiPAP with no further signs of respiratory distress. Lab Data: Labs: Lab Results 09/02/20 09/02/20 09/02/20 Range/Units 21:31 21:31 21:31 WBC 28.9 H (4.0-10.0) 10^3/ uL RBC 3.98 L (4.1-5.3) 10^6/u L Hgb 12.0 (11.5-15.3) g/dL Hct 38.3 (37.0-47.0) % MCV 96.2 (81-99) fL MCH 30.2 (28.0-34.0) pg MCHC 31.3 (30.0-36.0) g/dL RDW 14.6 (12.1-15.1) % Plt Count 369 (130-400) 10^3/c mm MPV 10.2 (7.4-10.4) fL Neut % (Auto) 82.1 % Lymph % (Auto) 4.4 % [place] % (Auto) 11.6 % Eos % (Auto) 0.3 % Baso % (Auto) 0.2 % Neut # (Auto) 23.74 H (1.8-7.7) 10^3/u L Lymph # (Auto) 1.3 (0.8-4.8) 10^3/u L [place] # (Auto) 3.4 H (0.2-0.9) 10^3/u L Eos # (Auto) 0.1 (0.0-0.8) 10^3/u L Baso # (Auto) 0.1 (0.0-0.1) 10^3/u L Nucleated RBC % (a uto) 0 % Nucleated RBCs # 0.0 /100WBC D-Dimer 1.11 H (0-0.59) ug/mIFE U Specimen Type Sample Site ABG pH (7.35-7.45) ABG pCO2 (35-45) mmHg ABG pO2 (80.0-100.0) mmH g ABG HCO3 (22-26) mmol/L ABG O2 Saturation ABG Base Excess (-2.0-2.0) mmol/ L Rudy Test A-a O2 Gradient (5-10) mmHg Hematocrit (37-47) % Hgb O2 Saturation (95-100) % Carboxyhemoglobin (0.4-20.1) %THgb Methemoglobin (0.4-1.5) % Total Hemoglobin (12-16) g/dL Ionized Calcium (1.1-1.4) mmol/L O2 Delivery Device FiO2 % Hse Coordinator ID Sodium 133 L (136-145) mmol/L Potassium 3.0 L (3.5-5.1) mmol/L Chloride 91 L (98-107) mmol/L Carbon Dioxide 33 H (22-29) mmol/L Anion Gap 12.0 (5-19) BUN 6 (6-20) mg/dL Creatinine 0.7 (0.5-0.9) mg/dL GFR Calculation 86.6 L (90-130) mL/min Glucose 98 (65-115) mg/dL Calculated Osmolal ity 274 L (285-295) mOsm/k g Lactic Acid (0.5-2.2) mmol/L Calcium 9.1 (8.5-10.5) mg/dL Magnesium (1.7-2.3) mg/dL Total Bilirubin 0.6 (0.15-1.2) mg/dL AST 8 (0-32) U/L ALT 6 (0-33) U/L Alkaline Phosphata se 127 H (35-105) IU/L Troponin T Baselin e (0-10) ng/L Troponin T 120 Min [place] (0-10) ng/L Delta Troponin T (0-10) ABS# NT-Pro-B Natriuret Pep 527 H (0-125) pg/mL Total Protein 6.8 (6.6-8.7) g/dL Albumin 3.6 (3.5-5.2) g/dL Globulin 3.2 (1.3-4.6) g/dL Influenza Type A A g (Negative) Influenza Type B A g (Negative) SARS-CoV-2 Ag (Rap id) (Negative) 09/02/20 09/02/20 09/02/20 Range/Units 21:31 21:31 21:31 WBC (4.0-10.0) 10^3/ uL RBC (4.1-5.3) 10^6/u L Hgb (11.5-15.3) g/dL Hct (37.0-47.0) % MCV (81-99) fL MCH (28.0-34.0) pg MCHC (30.0-36.0) g/dL RDW (12.1-15.1) % Plt Count (130-400) 10^3/c mm MPV (7.4-10.4) fL Neut % (Auto) % Lymph % (Auto) % [place] % (Auto) % Eos % (Auto) % Baso % (Auto) % Neut # (Auto) (1.8-7.7) 10^3/u L Lymph # (Auto) (0.8-4.8) 10^3/u L [place] # (Auto) (0.2-0.9) 10^3/u L Eos # (Auto) (0.0-0.8) 10^3/u L Baso # (Auto) (0.0-0.1) 10^3/u L Nucleated RBC % (a uto) % Nucleated RBCs # /100WBC D-Dimer (0-0.59) ug/mIFE U Specimen Type Sample Site ABG pH (7.35-7.45) ABG pCO2 (35-45) mmHg ABG pO2 (80.0-100.0) mmH g ABG HCO3 (22-26) mmol/L ABG O2 Saturation ABG Base Excess (-2.0-2.0) mmol/ L Rudy Test A-a O2 Gradient (5-10) mmHg Hematocrit (37-47) % Hgb O2 Saturation (95-100) % Carboxyhemoglobin (0.4-20.1) %THgb Methemoglobin (0.4-1.5) % Total Hemoglobin (12-16) g/dL Ionized Calcium (1.1-1.4) mmol/L O2 Delivery Device FiO2 % Hse Coordinator ID Sodium (136-145) mmol/L Potassium (3.5-5.1) mmol/L Chloride (98-107) mmol/L Carbon Dioxide (22-29) mmol/L Anion Gap (5-19) BUN (6-20) mg/dL Creatinine (0.5-0.9) mg/dL GFR Calculation (90-130) mL/min Glucose (65-115) mg/dL Calculated Osmolal ity (285-295) mOsm/k g Lactic Acid 0.8 (0.5-2.2) mmol/L Calcium (8.5-10.5) mg/dL Magnesium 1.6 L (1.7-2.3) mg/dL Total Bilirubin (0.15-1.2) mg/dL AST (0-32) U/L ALT (0-33) U/L Alkaline Phosphata se (35-105) IU/L Troponin T Baselin e 8 (0-10) ng/L Troponin T 120 Min [place] (0-10) ng/L Delta Troponin T (0-10) ABS# NT-Pro-B Natriuret Pep (0-125) pg/mL Total Protein (6.6-8.7) g/dL Albumin (3.5-5.2) g/dL Globulin (1.3-4.6) g/dL Influenza Type A A g (Negative) Influenza Type B A g (Negative) SARS-CoV-2 Ag (Rap id) (Negative) 09/02/20 09/02/20 09/02/20 Range/Units 21:40 21:50 22:34 WBC (4.0-10.0) 10^3/ uL RBC (4.1-5.3) 10^6/u L Hgb (11.5-15.3) g/dL Hct (37.0-47.0) % MCV (81-99) fL MCH (28.0-34.0) pg MCHC (30.0-36.0) g/dL RDW (12.1-15.1) % Plt Count (130-400) 10^3/c mm MPV (7.4-10.4) fL Neut % (Auto) % Lymph % (Auto) % [place] % (Auto) % Eos % (Auto) % Baso % (Auto) % Neut # (Auto) (1.8-7.7) 10^3/u L Lymph # (Auto) (0.8-4.8) 10^3/u L [place] # (Auto) (0.2-0.9) 10^3/u L Eos # (Auto) (0.0-0.8) 10^3/u L Baso # (Auto) (0.0-0.1) 10^3/u L Nucleated RBC % (a uto) % Nucleated RBCs # /100WBC D-Dimer (0-0.59) ug/mIFE U Specimen Type Arterial Sample Site L radial ABG pH 7.42 (7.35-7.45) ABG pCO2 52.3 H (35-45) mmHg ABG pO2 61.1 L (80.0-100.0) mmH g ABG HCO3 33.9 H (22-26) mmol/L ABG O2 Saturation 92.1 ABG Base Excess 8.0 H (-2.0-2.0) mmol/ L Rudy Test Pos A-a O2 Gradient 3.2 L (5-10) mmHg Hematocrit 37.6 (37-47) % Hgb O2 Saturation 90.2 L (95-100) % Carboxyhemoglobin 2.0 (0.4-20.1) %THgb Methemoglobin 0.0 L (0.4-1.5) % Total Hemoglobin 12.3 (12-16) g/dL Ionized Calcium 1.2 (1.1-1.4) mmol/L O2 Delivery Device Bipap FiO2 60.0 % Hse Coordinator ID Nabde Sodium 136.0 (136-145) mmol/L Potassium 3.0 L (3.5-5.1) mmol/L Chloride (98-107) mmol/L Carbon Dioxide (22-29) mmol/L Anion Gap (5-19) BUN (6-20) mg/dL Creatinine (0.5-0.9) mg/dL GFR Calculation (90-130) mL/min Glucose 99.0 (65-115) mg/dL Calculated Osmolal ity (285-295) mOsm/k g Lactic Acid (0.5-2.2) mmol/L Calcium (8.5-10.5) mg/dL Magnesium (1.7-2.3) mg/dL Total Bilirubin (0.15-1.2) mg/dL AST (0-32) U/L ALT (0-33) U/L Alkaline Phosphata se (35-105) IU/L Troponin T Baselin e (0-10) ng/L Troponin T 120 Min [place] (0-10) ng/L Delta Troponin T (0-10) ABS# NT-Pro-B Natriuret Pep (0-125) pg/mL Total Protein (6.6-8.7) g/dL Albumin (3.5-5.2) g/dL Globulin (1.3-4.6) g/dL Influenza Type A A g Negative (Negative) Influenza Type B A g Negative (Negative) SARS-CoV-2 Ag (Rap id) Negative (Negative) 09/02/20 Range/Units 22:59 WBC (4.0-10.0) 10^3/ uL RBC (4.1-5.3) 10^6/u L Hgb (11.5-15.3) g/dL Hct (37.0-47.0) % MCV (81-99) fL MCH (28.0-34.0) pg MCHC (30.0-36.0) g/dL RDW (12.1-15.1) % Plt Count (130-400) 10^3/c mm MPV (7.4-10.4) fL Neut % (Auto) % Lymph % (Auto) % [place] % (Auto) % Eos % (Auto) % Baso % (Auto) % Neut # (Auto) (1.8-7.7) 10^3/u L Lymph # (Auto) (0.8-4.8) 10^3/u L [place] # (Auto) (0.2-0.9) 10^3/u L Eos # (Auto) (0.0-0.8) 10^3/u L Baso # (Auto) (0.0-0.1) 10^3/u L Nucleated RBC % (a uto) % Nucleated RBCs # /100WBC D-Dimer (0-0.59) ug/mIFE U Specimen Type Sample Site ABG pH (7.35-7.45) ABG pCO2 (35-45) mmHg ABG pO2 (80.0-100.0) mmH g ABG HCO3 (22-26) mmol/L ABG O2 Saturation ABG Base Excess (-2.0-2.0) mmol/ L Rudy Test A-a O2 Gradient (5-10) mmHg Hematocrit (37-47) % Hgb O2 Saturation (95-100) % Carboxyhemoglobin (0.4-20.1) %THgb Methemoglobin (0.4-1.5) % Total Hemoglobin (12-16) g/dL Ionized Calcium (1.1-1.4) mmol/L O2 Delivery Device FiO2 % Hse Coordinator ID Sodium (136-145) mmol/L Potassium (3.5-5.1) mmol/L Chloride (98-107) mmol/L Carbon Dioxide (22-29) mmol/L Anion Gap (5-19) BUN (6-20) mg/dL Creatinine (0.5-0.9) mg/dL GFR Calculation (90-130) mL/min Glucose (65-115) mg/dL Calculated Osmolal ity (285-295) mOsm/k g Lactic Acid (0.5-2.2) mmol/L Calcium (8.5-10.5) mg/dL Magnesium (1.7-2.3) mg/dL Total Bilirubin (0.15-1.2) mg/dL AST (0-32) U/L ALT (0-33) U/L Alkaline Phosphata se (35-105) IU/L Troponin T Baselin e (0-10) ng/L Troponin T 120 Min [place] 7.53 (0-10) ng/L Delta Troponin T -0.47 L (0-10) ABS# NT-Pro-B Natriuret Pep (0-125) pg/mL Total Protein (6.6-8.7) g/dL Albumin (3.5-5.2) g/dL Globulin (1.3-4.6) g/dL Influenza Type A A g (Negative) Influenza Type B A g (Negative) SARS-CoV-2 Ag (Rap id) (Negative) COVID Results: SARS-CoV-2 Antigen (Rapid) Negative (Negative) 09/02/20 21:50 09/02/20 Discharge Plan Discharge Patient Disposition: Admitted As Inpatient Admit Provider: Jennifer Bailey Clinical Impression: Acute hypercapnic respiratory failure COPD (chronic obstructive pulmonary disease) Qualifiers: COPD type: COPD with acute exacerbation Qualified Code(s): J44.1 - Chronic obstructive pulmonary disease with (acute) exacerbation Condition: Stable Sign Out Sign Out Data: Patient Sign Out occurred on 09/03/20 at 00:11. Patient's care was discussed, and care was transferred from Pro Middleton MD to Yenny Harrison. Sign Out Comment: Case turned over to Dr. Harrison at 1152 PM. Last updated by Pro Middleton MD at 09/02/20 23:52 Coding Level of Care Code ED Shop Fitter for Chg Fwd Exam Comprehensive
[2020-09-02 21:56] LABS: Lactic Sepsis W/Reflex 0.8 mmol/L (0.5-2.2)
[2020-09-02 21:57] LABS: D Dimer 1.11 ug/mIFEU (0-0.59)
[2020-09-02 21:59] LABS: ABG PCO2 52.3 mmHg (35-45); ABG PH Result 7.42 (7.35-7.45); Alveolar-Arterial Oxygen Gradi 3.2 mmHg (5-10); Arterial Blood Gas Hematocrit 37.6 % (37-47); Blood Gas Allen Test Pos; Blood Gas Sample Type Arterial; HCO3 ABG 33.9 mmol/L (22-26); HGB O2 Sat 90.2 % (95-100); Ionized Calcium Level - ABG 1.2 mmol/L (1.1-1.4); Oxygen Saturation ABG 92.1; PO2 ABG 61.1 mmHg (80.0-100.0); Total Hemoglobin 12.3 g/dL (12-16)
[2020-09-02 21:59] LABS: Troponin(5th) Baseline 8 ng/L (0-10)
[2020-09-02 22:06] LABS: Alanine Aminotransferase 6 U/L (0-33); Albumin Level 3.6 g/dL (3.5-5.2); Alkaline Phosphatase 127 IU/L (35-105); Aspartate Amino Transferase 8 U/L (0-32); Blood Urea Nitrogen 6 mg/dL (6-20); Calcium 9.1 mg/dL (8.5-10.5); Carbon Dioxide 33 mmol/L (22-29); Chloride 91 mmol/L (98-107); Globulin 3.2 g/dL (1.3-4.6); Glomerular Filtration Rate 86.6 mL/min (90-130); Glucose 98 mg/dL (65-115); NT Pro B Type Natriuretic Pept 527 pg/mL (0-125); Osmolality Calculated 274 mOsm/kg (285-295); Sodium 133 mmol/L (136-145); Total Bilirubin 0.6 mg/dL (0.15-1.2); Total Protein 6.8 g/dL (6.6-8.7)
[2020-09-02 22:27] LABS: SARS Covid-2 Antigen Negative (Negative)
[2020-09-02] MEDS: ondansetron 2 mg/ML SDV 2 mL 4 MG IV (22:41)
[2020-09-02] MEDS: potassium chloride ER 20 mEq Tablet 40 MEQ PO (22:42)
[2020-09-02] MEDS: levofloxacin-dextrose 5 % 750 MG/150 ML PREMIX 100 MG IV (22:43)
--- NOTE | 2020-09-02 23:00 | ECG_ITS ---
[facility] Test Date: 2020-09-03 Pat Name: Angie Naranjo Department: Room: Gender: Female Bedspread Folder: : 1965 Requested By: Pro Middleton Order Number: [id number] Asa MD: Gui Conway M.D. Measurements Intervals [place] Rate: 87 P: 47 NM: 167 QRS: 2 QRSD: 95 T: 29 QT: 420 QTc: 505 Interpretive Statements SINUS RHYTHM Compared to ECG 09/02/2020 22:29:55 T-wave abnormality no longer present Electronically Signed On 09-03-2020 11:03:24 ROUSTABOUT by Gui Conway M.D. [id number]
--- NOTE | 2020-09-02 23:04 | CTR_ITS ---
PROCEDURE INFORMATION: Exam: CT Chest Without Contrast; Diagnostic Exam date and time: 09/02/2020 11:57 PM Age: 54 years old Clinical indication: Right-sided chest pain; Patient HX: C/O R lower chest/upper abd pain; Additional info: Rll infiltrate? Mass? Atelectasis? Other. Pe? TECHNIQUE: Imaging protocol: Diagnostic computed tomography of the chest without contrast. Radiation optimization: All CT scans at this facility use at least one of these dose optimization techniques: automated exposure control; mA and/or kV adjustment per patient size (includes targeted exams where dose is matched to clinical indication); or iterative reconstruction. COMPARISON: CR (CHEST, ) 09/02/2020 9:57 PM RADIATION DOSE METRICS: Total DLP (mGy-cm): 652.39 FINDINGS: Lungs: Strandy opacities and some consolidation is seen superimposed over the pleural effusion and right hemidiaphragm compatible with right basilar pneumonia. There is a rounded mass effect seen in the right middle lobe anteriorly measuring 4.2 cm AP dimension by 4.5 cm craniocaudal dimension approximately 5.3 cm transverse dimension. This may represent rounded pneumonia although a underlying soft tissue mass cannot be excluded. No mass was seen on a chest radiograph dated 10/15/2019, rounded area consolidation is seen in the right lung base in a chest today. Pleural space: There is a small right pleural effusion. Heart: Calcifications are present within the coronary arteries. Mediastinal space: There is a small hiatal hernia present. Aorta: Calcifications are seen within the thoracic aorta. Lymph nodes: Unremarkable. No enlarged lymph nodes. Liver: There is a 12 x 14 mm hypoattenuation cystic lesions seen within the right hepatic lobe likely representing a simple cyst. Gallbladder and bile ducts: Status post cholecystectomy. Kidneys and ureters: A 1.8 mm nonobstructing right renal calculus is seen. Bones/joints: Unremarkable. No acute fracture. Soft tissues: See Lungs finding. CT/CT chest wo con [id number] IMPRESSION: 1. Strandy opacities and consolidation is seen in the right lung base. A rounded soft tissue attenuation mass is seen in the right middle lobe anteriorly superimposed over the right hemidiaphragm. This mass may represent rounded pneumonia although an underlying soft tissue pulmonary mass cannot be excluded. No pulmonary nodules or masses were identified on a chest radiograph dated 10/15/2019 and the rounded area of consolidation is seen in the right lung base in today's chest radiograph. Follow-up evaluation with a repeat CT examination of the chest is suggested when the patient's acute symptoms have resolved. 2. Benign cystic lesion within the right hepatic lobe measuring up to 14 mm. No further workup needed. 3. Nonobstructing 1.8 mm right renal calculus 4. Small hiatal hernia Radiation Dose CTDIVOL = (mGy): DLP = 652.39 (mGy-cm)
[2020-09-02 23:11] LABS: Influenza A by IFA Negative (Negative); Influenza B by IFA Negative (Negative)
[2020-09-02 23:32] LABS: Troponin 5 2HR 7.53 ng/L (0-10)
[2020-09-02 23:41] LABS: Troponin 5 2HR Delta -0.47 ABS# (0-10)
[2020-09-03] VITALS (35 sets, daily range): BP systolic 104–133; BP diastolic 54–81; PULSE 76–91; RESP 16–24; TEMP 36.4–36.7; O2SAT 90–97
--- NOTE | 2020-09-03 00:27 | PC.NURSE ---
EKG done at 0015 and shown to ER doctor
[2020-09-03] MEDS: sodium chloride 0.9% 1,000 ML 150 ML IV (00:53)
--- NOTE | 2020-09-03 01:27 | PM.HP ---
Providers/Chief Complaint Primary Care Provider: Genesis Ochoa MD Chief Complaint: ABD PAIN / FEVER / SHORTNESS OF BREATH History of Present Illness Angie Naranjo is a 54 year old female who has history of psoriasis, eczema, inflammatory arthritis for which she is taking methotrexate folic acid and prednisone, seronegative rheumatoid arthritis, prior history of DVT in lower extremity, cardiomegaly, presented today with chief complaint of shortness of breath. Patient is stating that for last 3 to 4 days she has been experiencing extreme shortness of breath, lately it started hurting around right rib cage on taking deep breath which he is describing as sharp pain she is able to pinpoint the area, she has been trying to sleep on that side as well which seemed to help her symptoms. She has been having subjective fevers at home, no nausea, vomiting or excessive sputum production, active smoker half a pack a day. She did not experience any discomfort around the left side of her chest. No orthopnea, PND, syncope, seizure-like activities, dysuria. Diagnosis in the ER revealed sepsis acute hypoxic respiratory failure, right-sided pneumonia was diagnosed which she was given Decadron 10 mg, Levaquin 750 mg, Zofran, potassium chloride 40 mEq x 2, Tylenol for fever and fluid resuscitation. By the time I saw her she was on BiPAP settings 18/10 FiO2 60%, I changed her settings to 12/6 FiO2 40% respiratory rate 12 her tidal volume was 420 430s and she was synchronizing her breathing with the BiPAP, she was diaphoretic and complained of right pleuritic pain. I will add magnesium sulfate for hypomagnesemia, vancomycin, Levaquin and aztreonam. Review of Systems Const: Reports: fever(s), chills, body aches, change in appetite, fatigue, malaise and diaphoresis Eyes: Denies: change in vision ENMT: Denies: throat pain Card: Denies: chest pain Resp: Reports: dyspnea, productive cough and pain on inspiration GI: Reports: abdominal pain and nausea; Denies: vomiting : Denies: flank pain Musc: Denies: neck pain, joint redness or joint warmth Skin/Breast: Reports: lesions Neuro: Denies: difficulty walking, vertigo or confusion Psych: Reports: anxiety Endo: Denies: polyuria Lewis/Lymph: Denies: easy bruising All/Imm: Denies: urticaria Medications/Allergies Home Medications Medication Instructions Recorded Confirmed Last Taken Type albuterol sulfate 2.5 mg INHALATION Q4H PRN #90 ml 01/05/20 08/16/20 Unknown Rx albuterol sulfate 90 mcg/actuation 2 puff INHALATION QID PRN #18 gm 01/05/20 08/16/20 Unknown Rx aerosol inhaler triamcinolone acetonide 0.1 % 1 applic TOPICAL BID #30 gm 02/24/20 08/16/20 Unknown Rx topical ointment atorvastatin 40 mg tablet 40 mg PO DAILY #30 tab 07/05/20 08/16/20 Unknown Rx carvedilol 25 mg tablet 25 mg PO BID #60 tab 07/05/20 08/16/20 Unknown Rx cholecalciferol (vitamin D3) 50 2,000 unit PO DAILY #30 tab 07/05/20 08/16/20 Unknown Rx mcg (2,000 unit) tablet clopidogrel 75 mg tablet 75 mg PO QDAY #30 tab 07/05/20 08/16/20 Unknown Rx cyclobenzaprine 10 mg tablet 10 mg PO BID PRN #60 tab 07/05/20 08/16/20 Unknown Rx fluoxetine 20 mg capsule 40 mg PO QDAY #60 cap 07/05/20 08/16/20 Unknown Rx fluticasone fur. 100 mcg-umeclid 1 inh INHALATION DAILY #28 each 07/05/20 08/16/20 Unknown Rx 62.5 mcg-vilant 25 mcg inhalat.powder hydroxyzine HCl 25 mg tablet 25 mg PO QID PRN #120 tab 07/05/20 08/16/20 Unknown Rx levothyroxine 88 mcg capsule 88 mcg PO DAILY #30 cap 07/05/20 08/16/20 Unknown Rx mupirocin calcium 2 % topical cream 1 applic TOPICAL TID #30 gm 07/05/20 08/16/20 Unknown Rx pantoprazole 40 mg tablet,delayed 40 mg PO DAILY #30 tab 07/05/20 08/16/20 Unknown Rx release abatacept 125 mg/mL subcutaneous 125 mg SUBCUT .Q7days #4 ml 07/18/20 08/16/20 Unknown Rx auto-injector folic acid 1 mg tablet 1 mg PO QDAY #90 tab 07/18/20 08/16/20 Unknown Rx methotrexate sodium 2.5 mg tablet See Rx Instructions PO .COMPLEX 07/18/20 08/16/20 Unknown Rx #40 tab prednisone 5 mg tablet 5 mg PO DAILY #30 tab 07/18/20 08/16/20 Unknown Rx clonidine HCl 0.1 mg tablet 0.1 mg PO BID #60 tab 08/16/20 08/16/20 Unknown Rx diltiazem HCl 30 mg tablet 30 mg PO TID #90 tab 08/16/20 08/16/20 Unknown Rx furosemide 20 mg tablet 20 mg PO DAILY #30 tab 08/16/20 08/16/20 Unknown Rx potassium chloride 20 mEq 10 meq PO DAILY #30 tab 08/16/20 08/16/20 Unknown Rx tablet,extended release Allergies Allergy/AdvReac Type Severity Reaction Status Date / Time aspirin Allergy Unknown Verified 08/16/20 14:13 buspirone [From BuSpar] Allergy Unknown Verified 08/16/20 14:13 codeine Allergy Unknown Verified 08/16/20 14:13 duloxetine Allergy Unknown Verified 08/16/20 14:13 gabapentin [From Neurontin] Allergy Unknown Verified 08/16/20 14:13 ibuprofen Allergy UNKNOWN Verified 08/16/20 14:13 iodine Allergy Unknown Verified 08/16/20 14:13 ketorolac [From Toradol] Allergy UNKNOWN Verified 08/16/20 14:13 lisinopril Allergy Unknown Verified 08/16/20 14:13 Penicillins Allergy Unknown Verified 08/16/20 14:13 pregabalin [Lyrica] Allergy Unknown Verified 08/16/20 14:13 Sulfa (Sulfonamide Allergy Unknown Verified 08/16/20 14:13 Antibiotics) tizanidine Allergy Unknown Verified 08/16/20 14:13 tramadol Allergy Unknown Verified 08/16/20 14:13 varenicline [From Chantix] Allergy UNKNOWN Verified 08/16/20 14:13 venlafaxine Allergy Unknown Verified 08/16/20 14:13 PFSH Acute PFSH: Medical History Aortic regurgitation Eczema Essential (primary) hypertension Fibromyalgia High risk medication use Hyperlipidemia Immunization counseling Inflammatory arthritis 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 Seronegative rheumatoid arthritis Surgical History H/O thyroidectomy History of tonsillectomy Hx of cholecystectomy Hx of total cystectomy Family History Mother Rheumatoid arthritis Father Rheumatoid arthritis Leukemia Denies family history of Lupus Social History Smoking and tobacco status: current every day smoker cigarettes Packs smoked per day: 0.25 Years cigarettes smoked: 25 Second hand smoke exposure: Yes Alcohol intake: never Marital status: Current occupational status: disabled History of recent travel: No Current gender identity: Female Vitals/I&O/Wt Last Vital Signs Temp 101.1 F H 09/02/20 20:42 Pulse 85 09/03/20 01:11 Resp 21 H 09/03/20 00:57 BP 111/62 09/03/20 00:57 Pulse Ox 93 09/03/20 01:11 09/02/20 09/02/20 09/03/20 14:59 22:59 06:59 Intake Total 150 / 150 Balance 150 / 150 Weight last 48 hrs Weight 68.039 kg Physical Exam Narrative: EXAM NARRATIVE: Very pleasant middle-aged female who appears more than stated age was on BiPAP when entered the room I change BiPAP settings to 08/13 tidal volume was 400 2230s respiratory rate 12 FiO2 40% She was synchronize her breathing with BiPAP S1, S2 no tachycardia or signs of heart failure Patient was diaphoretic Awake alert oriented x3 GCS 15 EOMI, PERRLA No neurological deficit Skin rash which is chronic no active sign of cellulitis Abdomen soft nontender, De La Torre's sign negative Bilateral breath sounds which are assisted via BiPAP, crepitations and rhonchi noted bibasilar Lower extremity no active signs of ischemia gangrene or new ulcer Data : 09/02/20 21:31 09/02/20 21:31 Micro: Microbiology 09/02/20 21:15 Blood Culture - Preliminary Blood SPECIMEN COLLECTED 09/02/20 21:31 Blood Culture - Preliminary Blood SPECIMEN COLLECTED A&P Assessment and plan (1) Community acquired pneumonia: Status: Acute (2) Immunocompromised: Status: Acute (3) Hypokalemia: Status: Acute (4) High risk medication use: Status: Acute (5) Hypothyroidism: Status: Acute Qualifiers: Hypothyroidism type: other Qualified Code(s): E03.8 - Other specified hypothyroidism (6) GERD without esophagitis: Status: Acute (7) Seronegative rheumatoid arthritis: Status: Acute (8) COPD (chronic obstructive pulmonary disease): Status: Acute Qualifiers: COPD type: COPD with acute exacerbation Qualified Code(s): J44.1 - Chronic obstructive pulmonary disease with (acute) exacerbation (9) Hypomagnesemia: Status: Acute (10) Sepsis: Status: Acute (11) Acute respiratory failure with hypoxia: Status: Acute Additional A&P Information Sepsis secondary to community-acquired pneumonia Since pneumonia severity index moderate Severe leukocytosis, fever, tachypnea, lactic acid 0.8, no signs of septic shock, He is immunocompromised, I will start her on vancomycin cefepime and aztreonam secondary to penicillin allergy Obtain sputum culture, blood culture DuoNeb every 4 as needed Started on methylprednisone 30 mg IV twice a day Hypokalemia and hypomagnesemia This most likely secondary to use of diuretics such as Lasix Potassium and magnesium repleted Prolonged QTC noted I would avoid Levaquin and use cefepime instead Acute hypoxic respiratory failure secondary to community-acquired pneumonia Patient currently is on BiPAP Relative hypoxemia noted on ABG as well Considering high D-dimer I would like to rule out PE would require CTA chest However high D-dimer could be secondary to severe pneumonia Patient is a chronic smoker, neoplastic process has not been ruled out yet she will need very close follow-up with anesthesia tech current CT scan and pulmonary imaging is revealing rounded area of consolidation versus mass Grade 1 diastolic dysfunction Preserved ejection fraction currently clinically she is not fluid overloaded I would hold Lasix for now However BNP is 500 Rule out PE Hypercapnia without respiratory acidosis She has compensated hypercapnia with metabolic alkalosis bicarb 33 Continue BiPAP Pleuritic chest pain right-sided She has listed a lot of medication for allergies I would like to give her a trial of ketorolac x1 which has anti-inflammatory effect I asked her to sleep on right side as well We will monitor closely for development of any type of hives or rash Hold disease modifying agents for now Full code Cardiac diet DVT prophylaxis Lovenox Attestations Medical Necessity Statement*: Anticipating stay in the hospital course more than 2 midnights continued management of sepsis, community-acquired pneumonia need electrolyte replenishment, she is immunocompromised Time Spent in Patient Care: (>than 50% of time spent in counselling and/or direct pt care on unit). 50mins Coding Level of Care Code Acute Flight Engineer Performance Qualified for Chg Fwd Diagnoses Community acquired pneumonia J18.9 Immunocompromised D84.9 Hypokalemia E87.6 High risk medication use Z79.899 Hypothyroidism E03.8 Hypothyroidism type: other GERD without esophagitis K21.9 Seronegative rheumatoid arthritis M06.00 COPD (chronic obstructive pulmonary disease) J44.1 COPD type: COPD with acute exacerbation Hypomagnesemia E83.42 Sepsis A41.9 Acute respiratory failure with hypoxia J96.01
[2020-09-03 01:58] LABS: Magnesium 1.6 mg/dL (1.7-2.3)
[2020-09-03 02:19] LABS: Oxygen Device BIPAP
[2020-09-03 02:20] LABS: Blood Gas Sample Site L RADIAL
--- NOTE | 2020-09-03 03:00 | ECG_ITS ---
[facility] Test Date: 2020-09-03 Pat Name: Agnie Naranjo Department: Room: 260 Gender: Female Directory Operator: : 1965 Requested By: Pro Middleton Order Number: [id number] Asa MD: Gui Conway M.D. Measurements Intervals [place] Rate: 77 P: 56 FL: 180 QRS: 23 QRSD: 91 T: 39 QT: 459 QTc: 522 Interpretive Statements SINUS RHYTHM PROLONGED QT INTERVAL Compared to ECG 09/03/2020 00:18:35 Prolonged QT interval now present Electronically Signed On 09-03-2020 11:02:37 ROOM SERVICE SERVER by Gui Conway M.D. [id number]
[2020-09-03 06:23] LABS: Glucose Point of Care 128 mg/dL (70-110)
[2020-09-03] MEDS: magnesium sulfate premix 2 GM/50 ML PIGGYBACK IV (06:38)
[2020-09-03 07:48] LABS: Procalcitonin 0.44 ng/mL (0-0.5)
[2020-09-03] MEDS: morphine IR 15 mg Tablet PO (08:33)
[2020-09-03] MEDS: atorvastatin 40 mg Tablet PO (10:11)
[2020-09-03] MEDS: clopidogrel 75 mg Tablet PO (10:11)
[2020-09-03] MEDS: cloNIDine 0.1 mg Tablet PO (10:12)
[2020-09-03] MEDS: enoxaparin 40 mg/0.4 mL Syringe SUBCUT (10:12)
[2020-09-03] MEDS: sennosides-docusate Tablet 1 TAB PO (10:12)
[2020-09-03] MEDS: levothyroxine 88 mcg Tablet PO (10:12)
[2020-09-03] MEDS: pantoprazole DR 40 mg Tablet PO (10:12)
[2020-09-03] MEDS: dilTIAZem 30 mg Tablet PO ×3 (10:12→21:27)
[2020-09-03] MEDS: carvedilol 25 mg Tablet PO ×2 (10:12→19:29)
[2020-09-03] MEDS: aztreonam 2,000 MG in sodium chloride 0.9% (plus) 100 ML 200 MG IV ×3 (10:13→23:00)
[2020-09-03 10:19] LABS: Creatine Phosphokinase 34 U/L (26-192); Ferritin 276 ng/mL (15-150)
[2020-09-03] MEDS: vancomycin 1,250 MG/250 ML PIGGYBACK 250 MG IV ×2 (10:53→21:22)
--- NOTE | 2020-09-03 11:13 | USCV_ITS ---
Angie Naranjo Age: 54 Gender: F : 1965 Exam Date: 09/03/2020 11:33 Ordering Phys: Santo Ron MD Technologist: Ann Snyder [place] [facility] [place]: Increasing oxygen requirement. Decreased oxygen saturation. BP: 129 / 80 HR: 73 Rhythm: Sinus Technical Quality: Fair MEASUREMENTS (Male / Female) Normal Values 2D ECHO LV Diastolic Diameter PLAX 3.8 cm 4.2 - 5.9 / 3.9 - 5.3 cm LV Systolic Diameter PLAX 2.4 cm LV Chamber Size 3.9 cm IVS Diastolic Thickness 1.3 cm 0.6 - 1.0 / 0.6 - 0.9 cm IVS Systolic Thickness 1.4 cm LVPW Diastolic Thickness 1.0 cm 0.6 - 1.0 / 0.6 - 0.9 cm LVPW Systolic Thickness 1.7 cm RV Chamber Size 1.2 cm LVOT Diameter 2.0 cm LV Ejection Fraction 2D Teich 69.6 % LV Ejection Fraction MOD 2C 67.7 % LV Ejection Fraction 2C AL 70.2 % LA Diameter 4.0 cm LA Width 1.6 cm LA Height 5.5 cm RA Width 1.7 cm RA Height 4.9 cm Aorta at Sinotubular Diameter 2.6 cm M-MODE LV Diastolic Diameter MM 4.8 cm 4.2 - 5.9 / 3.9 - 5.3 cm LV Systolic Diameter MM 2.7 cm LV Ejection Fraction MM Teich 76.0 % IVS Diastolic Thickness MM 1.0 cm 0.6 - 1.0 / 0.6 - 0.9 cm IVS Systolic Thickness MM 1.6 cm LVPW Diastolic Thickness MM 1.3 cm 0.6 - 1.0 / 0.6 - 0.9 cm LVPW Systolic Thickness MM 1.9 cm RV Diastolic Diameter MM 1.5 cm Aortic Annulus Diameter 2.9 cm LA Ao Ratio MM 1.4 MV E Point Septal Separation 0.4 cm DOPPLER AV Peak Velocity 179.0 cm/s LVOT Peak Velocity 120.0 cm/s AV Area Cont Eq vti 1.9 cm squared AV Area Cont Eq pk 2.2 cm squared MV Area PHT 3.5 cm squared Mitral E to A Ratio 1.1 MV E' Velocity 54.5 cm/s Mitral E to MV E' Ratio 8.4 Mitral E to LV E' Lateral Ratio 8.0 Mitral E to LV E' Septal Ratio 9.1 TR Peak Velocity 247.2 cm/s TR Peak Gradient 24.4 mmHg TR Mean Velocity 206.9 cm/s TR Mean Gradient 17.9 mmHg TR Velocity Time Integral 88.8 cm TV Peak E Velocity 66.0 cm/s Right Atrial Pressure 3.0 mmHg Pulmonary Artery Systolic Pressu 27.4 mmHg PV Peak Velocity 70.0 cm/s RV Acceleration Time 0.1 s RV Ejection Time 0.3 s RV AcT/ET 0.4 FINDINGS Left Ventricle Normal left ventricular size and systolic function with no regional wall motion abnormalities. LVEF is 55 to 60%. Diastolic function is normal. Right Ventricle The right ventricle is normal in size and function. Right Atrium The right atrium is normal in size. Left Atrium The left atrium is normal in size. Mitral Valve Structurally normal mitral valve without significant stenosis or prolapse. There is trace mitral regurgitation. Aortic Valve Not very well visualized. No significant stenosis. There is mild to moderate aortic regurgitation. Tricuspid Valve Structurally normal tricuspid valve without significant stenosis. There is mild tricuspid regurgitation. RVSP is 25 to 30 mmHg. Pulmonic Valve Structurally normal pulmonic valve without significant stenosis. There is no pulmonic regurgitation. Pericardium Normal pericardium without effusion. Aorta Normal ascending aorta dimension. CONCLUSIONS LV systolic function is normal with EF of 55 to 60%. Diastolic function is normal. There is trace mitral regurgitation. There is mild to moderate aortic regurgitation. Mild tricuspid regurgitation. Compared to prior echocardiogram from 05/04/2018, no significant changes are noted. Gui Conway MD (Electronically Signed) Final Date: 03 September 2020 16:36 S
--- NOTE | 2020-09-03 11:14 | USR_ITS ---
PROCEDURE INFORMATION: Exam: US Chest, Pleural Space Exam date and time: 09/03/2020 11:31 AM Age: 54 years old Clinical indication: Other: Perapheumonic effusion; Additional info: Increased oxygen requirement TECHNIQUE: Imaging protocol: Real time ultrasound of the chest was performed with image documentation. Exam focused on the pleural space. COMPARISON: CT chest wo con [id number] 09/02/2020 11:54 PM FINDINGS: Pleural space: Moderate size right pleural effusion. There is debris within the right pleural effusion. US/US chest [id number] IMPRESSION: There is a moderate size right pleural effusion with internal debris. Internal complexity may represent infection and/or hemorrhagic products.
[2020-09-03 11:27] LABS: ABG PCO2 48.6 mmHg (35-45); ABG PH Result 7.44 (7.35-7.45); Arterial Blood Gas Hematocrit 34.7 % (37-47); Base Excess ABG 7.9 mmol/L (-2.0-2.0); Blood Gas Operator Identificat AMH; Blood Gas Sample Site Brachial, left; Blood Gas Sample Type Arterial; HCO3 ABG 33.2 mmol/L (22-26); Oxygen Device NC; PO2 ABG 51.9 mmHg (80.0-100.0)
[2020-09-03 11:28] LABS: Lactate (Lactic Acid level) 1.6 mmol/L (0.5-2.2)
--- NOTE | 2020-09-03 12:53 | P.PN_ITS ---
Subjective Subjective: Interval history: This morning patient was examined, she is complaining of a lot of pain on the right side, no fevers, chills, no nausea, no vomiting, no known exposure to COVID-19, Vitals/I&O/Wt Last Vital Signs Temp 97.5 F L 09/03/20 07:58 Pulse 79 09/03/20 07:58 Resp 17 09/03/20 08:33 BP 129/80 09/03/20 10:12 Pulse Ox 90 09/03/20 07:58 09/02/20 09/03/20 09/03/20 22:59 06:59 14:59 Intake Total 150 / 150 820 / 820 Balance 150 / 150 820 / 820 Weight last 48 hrs Weight 68.039 kg Physical Exam Const: COMMON NORMALS: no acute distress and patient oriented x3 HENMT: COMMON NORMALS: normocephalic HEAD & SCALP: normocephalic Neck/C-Spine: COMMON NORMALS: no JVD Resp: COMMON NORMALS: normal respiratory effort, No retractions and No use of accessory muscles AUSCULTATION: diminished lung sounds on the right in the lower lung allred Cardio: COMMON NORMALS: no JVD, regular rate, regular rhythm, S1 normal heart sound present and S2 normal heart sound present RATE: regular rate RHYTHM: regular rhythm HEART SOUNDS: S1 normal heart sound present and S2 normal heart sound present GI: COMMON NORMALS: Normal to inspection, nondistended, normoactive bowel sounds present, Soft to palpation, non-tender, No hepatosplenomegaly present, no masses and no bruits PALPATION: Yes Soft to palpation and Yes No hepatosplenomegaly present Extremity: COMMON NORMALS: capillary refill normal, no clubbing, cyanosis or edema, no calf tenderness and no pedal edema Neuro: COMMON NORMALS: patient oriented x3 Psych: COMMON NORMALS: mental status grossly normal Data : 09/02/20 21:31 09/02/20 21:31 Micro: Microbiology 09/02/20 21:15 Blood Culture - Preliminary Blood SPECIMEN COLLECTED 09/02/20 21:31 Blood Culture - Preliminary Blood SPECIMEN COLLECTED A&P Assessment and plan (1) Acute respiratory failure with hypoxia and hypercapnia: -Secondary to right lower lobe pneumonia with parapneumonic effusion -Review of the CT scan shows a right lower lobe density, with parapneumonic effusion extending to the anterior thorax, that is concerning -There is still a question if this is a pneumonia versus a soft tissue mass with associated hemothorax -In addition there is still question if the solid density represents an aspergilloma or tuberculosis focus -In addition patient's D-dimer is elevated, CT angiogram of the chest was ordered last night, but not performed as of yet -Patient is immunocompromise as she has a history of seronegative rheumatoid arthritis, is on abatacept, prednisone, methotrexate -Leukocytosis 28.9, has fevers, tachypnea, lactic acid 0.8, he no hemodynamic compromise, is immunocompromised -Strandy opacities and some consolidation is seen superimposed over the pleural effusion and right hemidiaphragm compatible with right basilar pneumonia. There is a rounded mass effect seen in the right middle lobe anteriorly measuring 4.2 cm AP dimension by 4.5 cm craniocaudal dimension approximately 5.3 cm transverse dimension. This may represent rounded pneumonia although a underlying soft tissue mass cannot be excluded. No mass was seen on a chest radiograph dated 10/15/2019, rounded area consolidation is seen in the right lung base in a chest today. PLAN: -Currently on MedSurg -Currently on 6 L, with slight tachypnea, complaining of pain on the right side -High flow to decrease work of breathing, BiPAP as needed -On broad-spectrum antibiotics vancomycin, Levaquin, aztreonam -Chest ultrasound ordered, cardiac echo ordered -AFB sputum, TB, Aspergillus, COVID-19, sputum, fungal smears -Plan for a thoracocentesis on Friday and if needed a bronchoscopy on Friday -Given patient's increased work of breathing, increased pain, will move her down to the ICU -Full code -Lovenox for DVT prophylaxis Status: Acute (2) Immunocompromised: Status: Acute (3) Hypokalemia: Status: Acute (4) High risk medication use: Status: Acute (5) Hypothyroidism: Status: Acute Qualifiers: Hypothyroidism type: other Qualified Code(s): E03.8 - Other specified hypothyroidism (6) GERD without esophagitis: Status: Acute (7) Seronegative rheumatoid arthritis: Status: Acute (8) COPD (chronic obstructive pulmonary disease): Status: Acute Qualifiers: COPD type: COPD with acute exacerbation Qualified Code(s): J44.1 - Chronic obstructive pulmonary disease with (acute) exacerbation (9) Hypomagnesemia: Status: Acute (10) Sepsis: Status: Acute (11) Acute respiratory failure with hypoxia: Status: Acute (12) Right lower lobe pneumonia: Status: Acute Additional A&P Information Hypokalemia and hypomagnesemia This most likely secondary to use of diuretics such as Lasix Potassium and magnesium repleted Prolonged QTC noted I would avoid Levaquin and use cefepime instead Grade 1 diastolic dysfunction Preserved ejection fraction currently clinically she is not fluid overloaded I would hold Lasix for now However BNP is [address] angiogram given contrast allergy, cannot do ventilation/perfusion scan as she is being evaluated for Covid likely Pleuritic chest pain right-sided Likely from pleural effusion, parapneumonic effusion, will treat Hold disease modifying agents for now Full code Cardiac diet DVT prophylaxis Lovenox Attestations Medical Necessity Statement*: Patient requires hospitalization for acute respiratory failure with hypoxia and hypercapnia 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
[2020-09-03] MEDS: cefepime 1,000 MG in sodium chloride 0.9% (plus) 50 ML 100 MG IV (14:12)
[2020-09-03] MEDS: morphine 4 mg/mL SDV 1 mL 2 MG IVP ×3 (14:16→23:49)
[2020-09-03] MEDS: ipratropium-albuterol 3 mL Neb INHALATION (14:47)
[2020-09-03 19:30] LABS: Glucose Point of Care 188 mg/dL (70-110)
[2020-09-03] MEDS: acetaminophen 500 mg Tablet PO (21:48)
[2020-09-03 21:50] LABS: Glucose Point of Care 163 mg/dL (70-110)
[2020-09-04] VITALS (22 sets, daily range): BP systolic 111–151; BP diastolic 56–73; PULSE 63–85; RESP 16–18; TEMP 36–36.7; O2SAT 92–100
[2020-09-04] MEDS: morphine 4 mg/mL SDV 1 mL 2 MG IVP ×5 (03:49→21:59)
[2020-09-04] MEDS: cefepime 1,000 MG in sodium chloride 0.9% (plus) 50 ML 100 MG IV (03:52)
[2020-09-04 05:54] LABS: Basophils # 0.1 10^3/uL (0.0-0.1); Basophils % 0.2 %; Eosinophils % 0.1 %; Hematocrit 33.7 % (37.0-47.0); Hemoglobin 10.3 g/dL (11.5-15.3); Lymphocytes % 3.1 %; Mean Corpuscular HGB Conc 30.6 g/dL (30.0-36.0); Mean Corpuscular Hemoglobin 29.7 pg (28.0-34.0); Mean Corpuscular Volume 97.1 fL (81-99); Mean Platelet Volume 10.7 fL (7.4-10.4); Monocytes # 2.1 10^3/uL (0.2-0.9); Monocytes % 6.7 %; Neutrophils # 27.46 10^3/uL (1.8-7.7); Neutrophils % 86.5 %; Nucleated Red Blood Cells % 0 %; Platelet Count 373 10^3/cmm (130-400); Red Blood Count 3.47 10^6/uL (4.1-5.3); Red Cell Distribution Width 14.6 % (12.1-15.1)
[2020-09-04 06:04] LABS: White Blood Count 31.8 10^3/uL (4.0-10.0)
[2020-09-04 06:06] LABS: INR 1.03 (0.8-1.2)
[2020-09-04 06:07] LABS: Fibrinogen 743 mg/dL (174-498); Partial Thromboplastin Time 34.7 SECONDS (23.9-36.7)
[2020-09-04 06:10] LABS: ABG PCO2 46.8 mmHg (35-45); ABG PH Result 7.44 (7.35-7.45); Arterial Blood Gas Hematocrit 32.3 % (37-47); Base Excess ABG 6.7 mmol/L (-2.0-2.0); Blood Gas Sample Type Arterial; HCO3 ABG 31.7 mmol/L (22-26); PO2 ABG 52.7 mmHg (80.0-100.0)
[2020-09-04 06:10] LABS: D Dimer 0.88 ug/mIFEU (0-0.59)
[2020-09-04 06:11] LABS: Blood Gas Operator Identificat HARKR; Blood Gas Sample Site Brachial, right; Oxygen Device NC
[2020-09-04 06:22] LABS: NT Pro B Type Natriuretic Pept 808 pg/mL (0-125); Procalcitonin 0.28 ng/mL (0-0.5)
[2020-09-04] MEDS: aztreonam 2,000 MG in sodium chloride 0.9% (plus) 100 ML 200 MG IV ×3 (06:29→21:56)
[2020-09-04 06:33] LABS: Alanine Aminotransferase < 5 U/L (0-33); Albumin Level 2.9 g/dL (3.5-5.2); Alkaline Phosphatase 103 IU/L (35-105); Anion Gap 13.4 (5-19); Aspartate Amino Transferase 6 U/L (0-32); Blood Urea Nitrogen 12 mg/dL (6-20); C Reactive Protein 236.5 mg/L (0.0-4.9); Calcium 9.5 mg/dL (8.5-10.5); Carbon Dioxide 30 mmol/L (22-29); Chloride 97 mmol/L (98-107); Creatine Phosphokinase 16 U/L (26-192); Globulin 3.8 g/dL (1.3-4.6); Glomerular Filtration Rate 103.4 mL/min (90-130); Glucose 151 mg/dL (65-115); Lactate Dehydrogenase 147 U/L (135-214); Magnesium 2.1 mg/dL (1.7-2.3); Osmolality Calculated 287 mOsm/kg (285-295); Potassium 3.4 mmol/L (3.5-5.1); Sodium 137 mmol/L (136-145); Total Bilirubin 0.2 mg/dL (0.15-1.2); Total Protein 6.7 g/dL (6.6-8.7)
[2020-09-04] MEDS: acetaminophen 500 mg Tablet PO (06:38)
[2020-09-04 06:42] LABS: Glucose Point of Care 200 mg/dL (70-110)
--- NOTE | 2020-09-04 07:00 | XR_ITS ---
WS: [id number] Exam: XR chest 1V portable [id number] Date/Time of Exam: 09/04/2020 6:18 AM Reason For Exam: sob Comparison 09/02/2020. Interval development of right basal pleural effusion and compressive atelectasis of the right lower l obe. The left lung is clear. Heart size is top limits normal. The mediastinum and bony thorax are unr emarkable. XR/XR chest 1V portable [id number] IMPRESSION: 1. Right basal pleural effusion with compressive atelectasis of the right lower lobe.
[2020-09-04 07:31] LABS: Vancomycin Trough 14.2 ug/mL (10-15)
[2020-09-04 08:05] LABS: Glucose Point of Care 160 mg/dL (70-110)
[2020-09-04] MEDS: albuterol 8 gm MDI 2 PUFF INHALATION (08:30)
[2020-09-04] MEDS: levothyroxine 88 mcg Tablet PO (08:54)
[2020-09-04] MEDS: vancomycin 1,250 MG/250 ML PIGGYBACK 250 MG IV ×2 (08:54→20:03)
[2020-09-04] MEDS: pantoprazole DR 40 mg Tablet PO (08:55)
[2020-09-04] MEDS: dilTIAZem 30 mg Tablet PO ×3 (08:55→20:03)
[2020-09-04] MEDS: atorvastatin 40 mg Tablet PO (08:55)
[2020-09-04] MEDS: sennosides-docusate Tablet 1 TAB PO (08:55)
[2020-09-04] MEDS: carvedilol 25 mg Tablet PO ×2 (08:55→17:40)
[2020-09-04] MEDS: cloNIDine 0.1 mg Tablet PO (11:18)
--- NOTE | 2020-09-04 12:07 | PM.PN ---
Subjective Subjective: Interval history: This morning patient was examined, she is on 6 L, she is no longer in respiratory distress, no tachypnea, no retractions, no nasal flaring, she is doing well she tells me, still having minimal pain on the right side, but 2 out of 10, no fevers, no cough Vitals/I&O/Wt Last Vital Signs Temp 98.0 F 09/04/20 11:00 Pulse 63 09/04/20 11:00 Resp 17 09/04/20 11:00 BP 135/72 09/04/20 11:18 Pulse Ox 94 09/04/20 11:00 09/03/20 09/04/20 09/04/20 22:59 06:59 14:59 Intake Total 850 / 2550 220 / 2770 120 / 120 Output Total 800 / 800 800 / 1600 Balance 50 / 1750 -580 / 1170 120 / 120 Weight last 48 hrs Weight 68.039 kg Physical Exam Const: COMMON NORMALS: no acute distress and patient oriented x3 HENMT: COMMON NORMALS: normocephalic HEAD & SCALP: normocephalic Neck/C-Spine: COMMON NORMALS: no JVD Resp: COMMON NORMALS: normal respiratory effort, No retractions and No use of accessory muscles AUSCULTATION: crackles Laterality: right Cardio: COMMON NORMALS: no JVD, regular rate, regular rhythm, S1 normal heart sound present and S2 normal heart sound present RATE: regular rate RHYTHM: regular rhythm HEART SOUNDS: S1 normal heart sound present and S2 normal heart sound present GI: COMMON NORMALS: Normal to inspection, nondistended, normoactive bowel sounds present, Soft to palpation, non-tender, No hepatosplenomegaly present, no masses and no bruits PALPATION: Yes Soft to palpation and Yes No hepatosplenomegaly present Extremity: COMMON NORMALS: capillary refill normal, no clubbing, cyanosis or edema, no calf tenderness and no pedal edema Neuro: COMMON NORMALS: patient oriented x3 Psych: COMMON NORMALS: mental status grossly normal Data : 09/04/20 05:44 09/04/20 05:44 Micro: Microbiology 09/02/20 21:31 Blood Culture - Preliminary Blood 09/02/20 21:15 Blood Culture - Preliminary Blood NEGATIVE TO DATE 09/03/20 15:36 Legionella Urinary Antigen - Final Urine,Clean Catch Bacterial Antigens - Final A&P Assessment and plan (1) Acute respiratory failure with hypoxia and hypercapnia: -Secondary to right lower lobe pneumonia with parapneumonic effusion -Review of the CT scan shows a right lower lobe density, with parapneumonic effusion extending to the anterior thorax, that is concerning -There is still a question if this is a pneumonia versus a soft tissue mass with associated hemothorax -In addition there is still question if the solid density represents an aspergilloma or tuberculosis focus -In addition patient's D-dimer is elevated, CT angiogram of the chest was ordered last night, but not performed as of yet -Patient is immunocompromise as she has a history of seronegative rheumatoid arthritis, is on abatacept, prednisone, methotrexate -Leukocytosis 31.8, slight elevation secondary to steroids 28.9, afebrile, no longer having tachypnea or nasal retractions,, lactic acid 0.8, he no hemodynamic compromise, is immunocompromised -Strandy opacities and some consolidation is seen superimposed over the pleural effusion and right hemidiaphragm compatible with right basilar pneumonia. There is a rounded mass effect seen in the right middle lobe anteriorly measuring 4.2 cm AP dimension by 4.5 cm craniocaudal dimension approximately 5.3 cm transverse dimension. This may represent rounded pneumonia although a underlying soft tissue mass cannot be excluded. No mass was seen on a chest radiograph dated 10/15/2019, rounded area consolidation is seen in the right lung base in a chest today. PLAN: -Currently on MedSurg -Currently on 6 L -High flow to decrease work of breathing, BiPAP as needed -On broad-spectrum antibiotics vancomycin, aztreonam -Chest ultrasound ordered:There is a moderate size right pleural effusion with internal debris. Internal complexity may represent infection and/or hemorrhagic products. -cardiac echo ordered: LV systolic function is normal with EF of 55 to 60%. Diastolic function is normal. There is trace mitral regurgitation. There is mild to moderate aortic regurgitation. Mild tricuspid regurgitation. Compared to prior echocardiogram from 05/04/2018, no significant changes are noted. -AFB sputum, TB, Aspergillus, COVID-19, sputum, fungal smears -Plan for a thoracocentesis on today and bronchoscopy on Friday -Currently in Covid and TB isolation -Full code -Lovenox for DVT prophylaxis on hold -Plavix on hold Status: Acute (2) Immunocompromised: Status: Acute (3) Hypokalemia: Status: Acute (4) High risk medication use: Status: Acute (5) Hypothyroidism: Status: Acute Qualifiers: Hypothyroidism type: other Qualified Code(s): E03.8 - Other specified hypothyroidism (6) GERD without esophagitis: Status: Acute (7) Seronegative rheumatoid arthritis: Status: Acute (8) COPD (chronic obstructive pulmonary disease): Status: Acute Qualifiers: COPD type: COPD with acute exacerbation Qualified Code(s): J44.1 - Chronic obstructive pulmonary disease with (acute) exacerbation (9) Hypomagnesemia: Status: Acute (10) Sepsis: Status: Acute (11) Acute respiratory failure with hypoxia: Status: Acute (12) Right lower lobe pneumonia: Status: Acute Additional A&P Information Hypokalemia and hypomagnesemia This most likely secondary to use of diuretics such as Lasix Potassium and magnesium repletion Prolonged QTC noted I would avoid Levaquin and use cefepime instead Grade 1 diastolic dysfunction Preserved ejection fraction currently clinically she is not fluid overloaded I would hold Lasix for now However BNP is [address]ogram given contrast allergy, cannot do ventilation/perfusion scan as she is being evaluated for Covid likely Pleuritic chest pain right-sided Likely from pleural effusion, parapneumonic effusion, will treat Hold disease modifying agents for now Full code Cardiac diet DVT prophylaxis Lovenox on hold for thoracocentesis Attestations Medical Necessity Statement*: Patient requires hospitalization for acute respiratory failure secondary to right lower lobe pneumonia, with concerns for parapneumonic effusion, TB focus, fungal focus, or possible hemothorax 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
[2020-09-04 12:13] LABS: Glucose Point of Care 123 mg/dL (70-110)
[2020-09-04] MEDS: potassium chloride ER 20 mEq Tablet 40 MEQ PO (12:13)
[2020-09-04 17:05] LABS: Glucose Point of Care 150 mg/dL (70-110)
--- NOTE | 2020-09-04 17:20 | PC.RESP ---
Smoking Cessation and Pulmonary Rehab packet sent to patient.
[2020-09-04 20:15] LABS: Glucose Point of Care 177 mg/dL (70-110)
--- NOTE | 2020-09-04 23:41 | PM.CONSULT ---
Providers/Reason For Consult Consulting Physican/Specialty*: Trae Garcia MD / Pulmonary medicine Reason for Consult*: Right pleural effusion and possible right lower lobe consolidation/mass Attending Physician: Santo Ron MD Primary Care Provider: Genesis Ochoa MD History of Present Illness History of Present Illness Angie Naranjo is a 54 year old female who has history of psoriasis, eczema, inflammatory arthritis for which she is taking methotrexate, abatacept, folic acid and prednisone, seronegative rheumatoid arthritis, prior history of DVT in lower extremity, cardiomegaly, presented with chief complaint of shortness of breath for last 3 to 4 days and lately it started hurting around right rib cage on taking deep breath, pleuritic in nature and sharp character, having subjective fevers at home, no nausea, vomiting or excessive sputum production, active smoker half a pack a day x 20 years. She did not experience any discomfort around the left side of her chest. No orthopnea, PND, syncope, seizure-like activities, dysuria. Diagnosis in the ER revealed sepsis acute hypoxic respiratory failure, right-sided pneumonia was diagnosed which she was given Decadron 10 mg, Levaquin 750 mg, Zofran, potassium chloride 40 mEq x 2, Tylenol for fever and fluid resuscitation. Initially placed on BiPAP settings 18/10 FiO2 60%. Currently patient in med surg floor - saturating 93% on 5L Reported improvement in her shortness of breath but still right side pleuritic chest pain persists. Otherwise no complaints Review of Systems General: Reports: 10 or more systems reviewed and unremarkable except in HPI and below Meds/Allergies Home Medications and Allergies Home Medications Medication Instructions Recorded Confirmed Last Taken Type albuterol sulfate 2.5 mg INHALATION Q4H PRN #90 ml 01/05/20 09/03/20 Unknown Rx albuterol sulfate 90 mcg/actuation 2 puff INHALATION QID PRN #18 gm 01/05/20 09/03/20 Unknown Rx aerosol inhaler triamcinolone acetonide 0.1 % 1 applic TOPICAL BID #30 gm 02/24/20 09/03/20 Unknown Rx topical ointment atorvastatin 40 mg tablet 40 mg PO DAILY #30 tab 07/05/20 09/03/20 Unknown Rx carvedilol 25 mg tablet 25 mg PO BID #60 tab 07/05/20 09/03/20 Unknown Rx cholecalciferol (vitamin D3) 50 2,000 unit PO DAILY #30 tab 07/05/20 09/03/20 Unknown Rx mcg (2,000 unit) tablet clopidogrel 75 mg tablet 75 mg PO QDAY #30 tab 07/05/20 09/03/20 Unknown Rx cyclobenzaprine 10 mg tablet 10 mg PO BID PRN #60 tab 07/05/20 09/03/20 Unknown Rx fluoxetine 20 mg capsule 40 mg PO QDAY #60 cap 07/05/20 09/03/20 Unknown Rx fluticasone fur. 100 mcg-umeclid 1 inh INHALATION DAILY #28 each 07/05/20 09/03/20 Unknown Rx 62.5 mcg-vilant 25 mcg inhalat.powder hydroxyzine HCl 25 mg tablet 25 mg PO QID PRN #120 tab 07/05/20 09/03/20 Unknown Rx levothyroxine 88 mcg capsule 88 mcg PO DAILY #30 cap 07/05/20 09/03/20 Unknown Rx mupirocin calcium 2 % topical cream 1 applic TOPICAL TID #30 gm 07/05/20 09/03/20 Unknown Rx pantoprazole 40 mg tablet,delayed 40 mg PO DAILY #30 tab 07/05/20 09/03/20 Unknown Rx release abatacept 125 mg/mL subcutaneous 125 mg SUBCUT .Q7days #4 ml 07/18/20 09/03/20 Unknown Rx auto-injector folic acid 1 mg tablet 1 mg PO QDAY #90 tab 07/18/20 09/03/20 Unknown Rx methotrexate sodium 2.5 mg tablet See Rx Instructions PO .COMPLEX 07/18/20 09/03/20 Unknown Rx #40 tab prednisone 5 mg tablet 5 mg PO DAILY #30 tab 07/18/20 09/03/20 Unknown Rx clonidine HCl 0.1 mg tablet 0.1 mg PO BID #60 tab 08/16/20 09/03/20 Unknown Rx diltiazem HCl 30 mg tablet 30 mg PO TID #90 tab 08/16/20 09/03/20 Unknown Rx furosemide 20 mg tablet 20 mg PO DAILY #30 tab 08/16/20 09/03/20 Unknown Rx potassium chloride 20 mEq 10 meq PO DAILY #30 tab 08/16/20 09/03/20 Unknown Rx tablet,extended release Allergies Allergy/AdvReac Type Severity Reaction Status Date / Time aspirin Allergy Unknown Verified 08/16/20 14:13 buspirone [From BuSpar] Allergy Unknown Verified 08/16/20 14:13 codeine Allergy Unknown Verified 08/16/20 14:13 duloxetine Allergy Unknown Verified 08/16/20 14:13 gabapentin [From Neurontin] Allergy Unknown Verified 08/16/20 14:13 ibuprofen Allergy UNKNOWN Verified 08/16/20 14:13 iodine Allergy Unknown Verified 08/16/20 14:13 ketorolac [From Toradol] Allergy UNKNOWN Verified 08/16/20 14:13 lisinopril Allergy Unknown Verified 08/16/20 14:13 Penicillins Allergy Unknown Verified 08/16/20 14:13 pregabalin [Lyrica] Allergy Unknown Verified 08/16/20 14:13 Sulfa (Sulfonamide Allergy Unknown Verified 08/16/20 14:13 Antibiotics) tizanidine Allergy Unknown Verified 08/16/20 14:13 tramadol Allergy Unknown Verified 08/16/20 14:13 varenicline [From Chantix] Allergy UNKNOWN Verified 08/16/20 14:13 venlafaxine Allergy Unknown Verified 08/16/20 14:13 Current Medications Current Medications Generic Name Dose Route Start Last Admin Trade Name Freq PRN Reason Stop Dose Admin Acetaminophen 500 mg 09/03/20 05:32 09/04/20 06:38 Acetaminophen 500 Mg Tablet PO 500 mg Q4H PRN Administration fever Albuterol Sulfate 2 puff 09/03/20 21:22 09/04/20 08:30 Albuterol 8 Gm Mdi INHALATION 2 puff Q4H.RESPIRATORY PRN Administration SHORTNESS OF BREATH Albuterol/Ipratropium 3 ml 09/03/20 05:32 09/03/20 14:47 Ipratropium-Albuterol 3 Ml Neb INHALATION 3 ml Q6H PRN Administration SHORTNESS OF BREATH Atorvastatin Calcium 40 mg 09/03/20 09:00 09/04/20 08:55 Atorvastatin 40 Mg Tablet PO 40 mg DAILY AKUA Administration Carvedilol 25 mg 09/03/20 09:00 09/04/20 17:40 Carvedilol 25 Mg Tablet PO 25 mg BID AKUA Administration Clonidine HCl 0.1 mg 09/03/20 09:00 09/04/20 11:18 Clonidine 0.1 Mg Tablet PO 0.1 mg DAILY AKUA Administration Clopidogrel Bisulfate 75 mg 09/03/20 09:00 09/03/20 10:11 Clopidogrel 75 Mg Tablet PO 75 mg DAILY AKUA Administration Diltiazem HCl 30 mg 09/03/20 09:00 09/04/20 20:03 Diltiazem 30 Mg Tablet PO 30 mg TID AKUA Administration Enoxaparin Sodium 40 mg 09/03/20 08:00 09/03/20 10:12 Enoxaparin 40 Mg/0.4 Ml Syringe SUBCUT 40 mg Q24H AKUA Administration Aztreonam 2,000 mg/ Sodium 100 mls @ 200 mls/hr 09/03/20 06:30 09/04/20 21:56 Chloride IV 200 mls/hr Q8H AKUA Administration Protocol Vancomycin/PEG/NADA/Lysine/Water 1,250 mg in 250 mls @ 250 mls/hr 09/03/20 08:00 09/04/20 20:03 Vancocin IV 250 mls/hr Q12H AKUA Administration Insulin Aspart 0 unit 09/03/20 08:00 09/04/20 21:56 Insulin Aspart 100 Unit/1 Ml SUBCUT 2 unit WM&BEDTIME AKUA Administration Protocol Levothyroxine Sodium 88 mcg 09/03/20 09:00 09/04/20 08:54 Levothyroxine 88 Mcg Tablet PO 88 mcg DAILY AKUA Administration Methylprednisolone Sodium Succinate 30 mg 09/03/20 06:00 09/03/20 06:35 Methylprednisolone Sod Succ 40 Mg/Ml Inj IVP 30 mg Q12H AKUA Administration Morphine Sulfate 2 mg 09/03/20 12:52 09/04/20 21:59 Morphine 4 Mg/Ml Sdv 1 Ml IVP 2 mg Q4H PRN Administration SEVERE PAIN Pantoprazole Sodium 40 mg 09/03/20 09:00 09/04/20 08:[address] 40 Mg Tablet PO 40 mg DAILY AKUA Administration Senna/Docusate Sodium 1 tab 09/03/20 09:00 09/04/20 08:55 Sennosides-Docusate Tablet PO 1 tab DAILY AKUA Administration PFSH Acute PFSH: Medical History Aortic regurgitation Eczema Essential (primary) hypertension Fibromyalgia High risk medication use Hyperlipidemia Immunization counseling Inflammatory arthritis 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 Seronegative rheumatoid arthritis Surgical History H/O thyroidectomy History of tonsillectomy Hx of cholecystectomy Hx of total cystectomy Family History Mother Rheumatoid arthritis Father Rheumatoid arthritis Leukemia Denies family history of Lupus Social History Smoking and tobacco status: current every day smoker cigarettes Packs smoked per day: 0.25 Years cigarettes smoked: 25 Second hand smoke exposure: Yes Alcohol intake: never Marital status: Current occupational status: disabled History of recent travel: No Current gender identity: Female Vitals/I&O/Wt Last Vital Signs Temp 98.1 F 09/04/20 21:48 Pulse 69 09/04/20 21:48 Resp 18 09/04/20 21:59 BP 116/66 09/04/20 21:48 Pulse Ox 100 09/04/20 21:48 09/04/20 09/04/20 09/05/20 14:59 22:59 06:59 Intake Total 830 / 830 360 / 1190 Output Total 0 / 0 Balance 830 / 830 360 / 1190 Physical Exam Narrative: EXAM NARRATIVE: General: alert, NAD Pain 4/10 on right side chest HEENT: conj clear, EOMI, PERRL, mmm, Neck: supple, no meningismus Heme: no cervical LAP Pulmonary: Reduced breath sounds right lower lobe Cardiovascular: rrr, nl s1s2, no mrg Abdomen: soft, nt, nd, no r/g, bs+ Extremities: pulses +, no edema, no c/c : no CVA tenderness Skin: intact, no rash MSK: no back or neck pain Neurologic: grossly intact Data Micro: Micro: Microbiology 09/02/20 21:31 Blood Culture - Pr eliminary Blood 09/02/20 21:15 Blood Culture - Pr eliminary Blood NEGATIVE TO CHANTAL E Other Data: Other data: Chest x-ray 09/04/2020:1. Right basal pleural effusion with compressive atelectasis of the right lower lobe. Chest CT 09/02/2020:1. Strandy opacities and consolidation is seen in the right lung base. A rounded soft tissue attenuation mass is seen in the right middle lobe anteriorly superimposed over the right hemidiaphragm. This mass may represent rounded pneumonia although an underlying soft tissue pulmonary mass cannot be excluded. No pulmonary nodules or masses were identified on a chest radiograph dated 10/15/2019 and the rounded area of consolidation isseen in the right lung base in today's chest radiograph. Follow-upevaluation with a repeat CT examination of the chest is suggested when the patient's acute symptoms have resolved. 2. Benign cystic lesion within the right hepatic lobe measuring up to 14 mm. No further workup needed. 3. Nonobstructing 1.8 mm right renal calculus 4. Small hiatal hernia Echo 09/03/2020: LV systolic function is normal with EF of 55 to 60%. Diastolic function is normal. There is trace mitral regurgitation. There is mild to moderate aortic regurgitation. Mild tricuspid regurgitation. Compared to prior echocardiogram from 05/04/2018, no significant changes are noted. Chest ultrasound 08/28/2020: There is a moderate size right pleural effusion with internal debris. Internal complexity may represent infection and/or hemorrhagic products. A&P Assessment and plan (1) Acute respiratory failure with hypoxia and hypercapnia: Status: Acute (2) Right lower lobe pneumonia: Status: Acute Qualifiers: Pneumonia type: due to unspecified organism Qualified Code(s): J18.9 - Pneumonia, unspecified organism (3) Immunocompromised: Status: Acute (4) Acute hypercapnic respiratory failure: Status: Acute (5) Smoking: Status: Acute (6) COPD (chronic obstructive pulmonary disease): Status: Acute Qualifiers: COPD type: COPD with acute exacerbation Qualified Code(s): J44.1 - Chronic obstructive pulmonary disease with (acute) exacerbation (7) Pleural effusion on right: Status: Acute (8) Aortic regurgitation: Status: Acute Qualifiers: Cardiac valve disease etiology: etiology unspecified Qualified Code(s): I35.1 - Nonrheumatic aortic (valve) insufficiency (9) Seronegative rheumatoid arthritis: Status: Acute #Acute hypercapnic hypoxic respiratory failure secondary to right lower lobe pneumonia #RLL pneumonia-low threshold for fungal infection due to immunocompromised status #Patient likely immunocompromised as she was on abatacept, methotrexate, prednisone for her rheumatoid arthritis #Held the Plavix (patient states she was given for ?? aortic regurgitation) #COPD and chronic smoker - Chest CT 09/02/2020:right lower lobe density, with parapneumonic effusion extending to the anterior thorax, that is concerning -There is still a question if this is a pneumonia versus a soft tissue mass with associated hemothorax. -In addition there is still question if the solid density represents an aspergillosis/Nocardia or tuberculosis focus - Follow-up evaluation with a repeat CT examination of the chest is suggested when the patient's acute symptoms have resolved. - currently on vancomycin and cefepime; saturating well on 5 L nasal cannula and not in acute respiratory distress and reports improvement in her shortness of breath -Worsening leukocytosis, procalcitonin -In addition patient's D-dimer is elevated, CT angiogram of the chest was ordered last night, but not performed as of yet -Currently on COVID-19 and TB precautions; Covid rapid antigen negative and PCR and TB QuantiFERON are pending -3 smears of sputum for AFB and culture TB, Aspergillus, COVID-19, sputum, fungal smears #Complicated right pleural effusion -likely parapneumonic due to ongoing infection versus inflammatory due to underlying seronegative rheumatoid arthritis versus?? Underlying malignancy as patient is a chronic smoker - Chest ultrasound 08/28/2020: There is a moderate size right pleural effusion with internal debris. Internal complexity may represent infection and/or hemorrhagic products. -Today bedside ultrasound of right chest showed complicated minimal effusion which is difficult to tap and mirror image artifact suggestive of hepatization phase of right lower lobe consolidation = Plavix held 09/03/2020 but no good window to tap the effusion -high risk of pneumothorax - currently on vancomycin and cefepime -Recommend CT surgery Dr. Adams consult to evaluate for possible thoracotomy and decortication in case if patient does not improve clinically #CT chest imaging suspicious for underlying soft tissue mass over RLL consolidation in a chronic smoker -We will treat with antibiotics and see patient response. - If patient does not respond clinically we will go ahead and do a bronchoscopy and BAL for cultures and cytology on 09/05/2020 -Plavix was held just yesterday on 09/03/2020 it would be high risk to get transbronchial biopsies -Once infection is treated but imaging still persist with masslike lesion then we will plan for navigational bronchoscopy guided TBB and EBUS guided FNA C to rule out malignancy #COPD and chronic smoker -Counseled to quit smoking -patient verbalized understanding of the complications of smoking like worsening emphysema/lung cancer/other cancer/coronary artery disease/stroke/peripheral arterial disease and agreed to quit -No PFTs available and patient is on Trelegy and albuterol as needed -We will follow-up in pulmonary clinic and we will order PFTs as outpatient - Recommended to stay up-to-date with flu and Pneumovax -Continue nebulization every 6 hr as needed for shortness of breath/wheezing while in hospital Medical condition, labs, investigations, medications, counseling regarding medication compliance, side effects, importance of follow-up appointments, smoking-its adverse effects and importance of cessation and plan of care-everything explained in detail to the patient. Patient verbalized understanding and agreed with the plan of care. Consult Attestations Medical Necessity Statement: Acute hypoxic hypercarbic respiratory failure secondary to right lower lobe pneumonia with suspected underlying malignancy in a chronic smoker-still requiring 5 to 6 L of oxygen and close monitoring of respiratory status while receiving antibiotics for pneumonia and to assess clinical response and stability Time Spent in Patient Care: Greater than 35 minutes (>than 50% of time spent in counselling and/or direct pt care on unit). 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 for Chg Fwd Patient Type New Medical Decision Making High Complexity Diagnoses Acute respiratory failure with hypoxia and hypercapnia J96.01; J96.02 Right lower lobe pneumonia J18.9 Pneumonia type: due to unspecified organism Immunocompromised D84.9 Acute hypercapnic respiratory failure J96.02 Smoking F17.200 COPD (chronic obstructive pulmonary disease) J44.1 COPD type: COPD with acute exacerbation Pleural effusion on right J90 Aortic regurgitation I35.1 Cardiac valve disease etiology: etiology unspecified Seronegative rheumatoid arthritis M06.00 Time Spent (min) 45 Comment including bed side ultrasound examination
[2020-09-05] VITALS (17 sets, daily range): BP systolic 124–159; BP diastolic 68–84; PULSE 69–91; RESP 12–18; TEMP 36.6–36.9; O2SAT 92–97
[2020-09-05] MEDS: morphine 4 mg/mL SDV 1 mL 2 MG IVP ×4 (02:00→14:34)
[2020-09-05 06:29] LABS: INR 0.93 (0.8-1.2)
[2020-09-05 06:30] LABS: Fibrinogen 652 mg/dL (174-498); Partial Thromboplastin Time 29.2 SECONDS (23.9-36.7)
[2020-09-05 06:33] LABS: D Dimer 1.13 ug/mIFEU (0-0.59)
[2020-09-05] MEDS: aztreonam 2,000 MG in sodium chloride 0.9% (plus) 100 ML 200 MG IV ×3 (06:37→23:05)
[2020-09-05 06:38] LABS: Alanine Aminotransferase < 5 U/L (0-33); Albumin Level 2.9 g/dL (3.5-5.2); Alkaline Phosphatase 97 IU/L (35-105); Blood Urea Nitrogen 12 mg/dL (6-20); Carbon Dioxide 30 mmol/L (22-29); Chloride 101 mmol/L (98-107); Glomerular Filtration Rate 103.4 mL/min (90-130); Glucose 88 mg/dL (65-115); Magnesium 1.8 mg/dL (1.7-2.3); Osmolality Calculated 289 mOsm/kg (285-295); Phosphorus 2.8 mg/dL (2.5-4.5); Sodium 140 mmol/L (136-145); Total Bilirubin 0.2 mg/dL (0.15-1.2); Total Protein 5.9 g/dL (6.6-8.7)
[2020-09-05 06:40] LABS: Lactate (Lactic Acid level) 1.4 mmol/L (0.5-2.2)
[2020-09-05 06:43] LABS: Anion Gap 12.9 (5-19); Aspartate Amino Transferase 8 U/L (0-32); Potassium 3.9 mmol/L (3.5-5.1)
[2020-09-05 06:50] LABS: NT Pro B Type Natriuretic Pept 1252 pg/mL (0-125); Procalcitonin 0.17 ng/mL (0-0.5)
[2020-09-05 07:00] LABS: Creatine Phosphokinase 14 U/L (26-192)
--- NOTE | 2020-09-05 07:36 | NUR.SHIFT ---
Patient had pain throughout the night, which was well controlled by morphine per nov q4h. Otherwise patient mainly slept.
[2020-09-05] MEDS: vancomycin 1,250 MG/250 ML PIGGYBACK 250 MG IV ×2 (08:50→20:57)
[2020-09-05 08:52] LABS: Basophils % 0.1 %; Hematocrit 33.9 % (37.0-47.0); Hemoglobin 10.5 g/dL (11.5-15.3); Lymphocytes # 1.4 10^3/uL (0.8-4.8); Lymphocytes % 6.4 %; Mean Corpuscular Hemoglobin 30.2 pg (28.0-34.0); Mean Corpuscular Volume 97.4 fL (81-99); Mean Platelet Volume 10.9 fL (7.4-10.4); Monocytes # 1.8 10^3/uL (0.2-0.9); Monocytes % 8.2 %; Neutrophils # 18.62 10^3/uL (1.8-7.7); Neutrophils % 83.9 %; Nucleated Red Blood Cells % 0 %; Platelet Count 375 10^3/cmm (130-400); Red Blood Count 3.48 10^6/uL (4.1-5.3); Red Cell Distribution Width 14.6 % (12.1-15.1); White Blood Count 22.2 10^3/uL (4.0-10.0)
[2020-09-05] MEDS: atorvastatin 40 mg Tablet PO (08:58)
[2020-09-05] MEDS: cloNIDine 0.1 mg Tablet PO (08:58)
[2020-09-05] MEDS: levothyroxine 88 mcg Tablet PO (08:58)
[2020-09-05] MEDS: carvedilol 25 mg Tablet PO ×2 (08:58→17:29)
[2020-09-05] MEDS: pantoprazole DR 40 mg Tablet PO (08:58)
[2020-09-05] MEDS: dilTIAZem 30 mg Tablet PO ×3 (08:58→22:33)
[2020-09-05 09:06] LABS: Glucose Point of Care 84 mg/dL (70-110)
[2020-09-05 11:19] LABS: Glucose Point of Care 79 mg/dL (70-110)
[2020-09-05 13:13] LABS: Quantiferon Mitogen 1.86 IU/mL; Quantiferon Nil 0.01 IU/mL; Quantiferon TB Gold NEGATIVE (NEGATIVE)
[2020-09-05 13:16] LABS: Glucose Point of Care 79 mg/dL (70-110)
--- NOTE | 2020-09-05 14:01 | P.PN_ITS ---
Subjective Subjective: Interval history: This morning patient was examined, she is doing much better, no fevers, chills, no nausea, no vomiting Vitals/I&O/Wt Last Vital Signs Temp 97.8 F 09/05/20 13:00 Pulse 72 09/05/20 13:00 Resp 18 09/05/20 13:00 BP 125/73 09/05/20 13:00 Pulse Ox 95 09/05/20 13:00 09/04/20 09/05/20 09/05/20 22:59 06:59 14:59 Intake Total 710 / 1540 250 / 250 Output Total 0 / 0 Balance 710 / 1540 250 / 250 Physical Exam Const: COMMON NORMALS: no acute distress and patient oriented x3 HENMT: COMMON NORMALS: normocephalic HEAD & SCALP: normocephalic Neck/C-Spine: COMMON NORMALS: no JVD Resp: COMMON NORMALS: normal respiratory effort, No retractions and No use of accessory muscles AUSCULTATION: wheezes Cardio: COMMON NORMALS: no JVD, regular rate, regular rhythm, S1 normal heart sound present and S2 normal heart sound present RATE: regular rate RHYTHM: regular rhythm HEART SOUNDS: S1 normal heart sound present and S2 normal heart sound present GI: COMMON NORMALS: Normal to inspection, nondistended, normoactive bowel sounds present, Soft to palpation, non-tender, No hepatosplenomegaly present, no masses and no bruits PALPATION: Yes Soft to palpation and Yes No hepatosplenomegaly present Extremity: COMMON NORMALS: capillary refill normal, no clubbing, cyanosis or edema, no calf tenderness and no pedal edema Neuro: COMMON NORMALS: patient oriented x3 Psych: COMMON NORMALS: mental status grossly normal Data : 09/05/20 06:00 09/05/20 06:00 Micro: Microbiology 09/02/20 21:31 Blood Culture - Preliminary Blood Coagulase negativ staphylococc A&P Assessment and plan (1) Acute respiratory failure with hypoxia and hypercapnia: -Secondary to right lower lobe pneumonia with parapneumonic effusion -Review of the CT scan shows a right lower lobe density, with parapneumonic effusion extending to the anterior thorax, that is concerning -There is still a question if this is a pneumonia versus a soft tissue mass with associated hemothorax -In addition there is still question if the solid density represents an aspergilloma or tuberculosis focus -In addition patient's D-dimer is elevated, CT angiogram of the chest was ordered last night, but not performed as of yet -Patient is immunocompromise as she has a history of seronegative rheumatoid arthritis, is on abatacept, prednisone, methotrexate -Leukocytosis 22, down to the 5 L nasal cannula, clinically improving -Strandy opacities and some consolidation is seen superimposed over the pleural effusion and right hemidiaphragm compatible with right basilar pneumonia. There is a rounded mass effect seen in the right middle lobe anteriorly measuring 4.2 cm AP dimension by 4.5 cm craniocaudal dimension approximately 5.3 cm transverse dimension. This may represent rounded pneumonia although a underlying soft tissue mass cannot be excluded. No mass was seen on a chest radiograph dated 10/15/2019, rounded area consolidation is seen in the right lung base in a chest today. -LV systolic function is normal with EF of 55 to 60%. Diastolic function is normal. There is trace mitral regurgitation. There is mild to moderate aortic regurgitation. Mild tricuspid regurgitation. Compared to prior echocardiogram from 05/04/2018, no significant changes are noted. -Dr. Garcia advised that there is no significant fluid to drain PLAN: -Currently on MedSurg -Currently on 5 L -High flow to decrease work of breathing, BiPAP as needed -On broad-spectrum antibiotics vancomycin, aztreonam -Plan for bronchoscopy today -Covid pending, AFB smears x3, -tb quantiferon negTIVE -Galactomannan, histoplasma pending -Currently in Covid and TB isolation -CT of the chest does show a soft tissue mass of the right lower lobe, is a chronic smoker -If patient does not clinically improve, she might require CT surgery evaluation for possible thoracotomy and decortication -Full code -Lovenox for DVT prophylaxis on hold -Plavix on hold Status: Acute (2) Immunocompromised: Status: Acute (3) Hypokalemia: Status: Acute (4) High risk medication use: Status: Acute (5) Hypothyroidism: Status: Acute Qualifiers: Hypothyroidism type: other Qualified Code(s): E03.8 - Other specified hypothyroidism (6) GERD without esophagitis: Status: Acute (7) Seronegative rheumatoid arthritis: Status: Acute (8) COPD (chronic obstructive pulmonary disease): Status: Acute Qualifiers: COPD type: COPD with acute exacerbation Qualified Code(s): J44.1 - Chronic obstructive pulmonary disease with (acute) exacerbation (9) Hypomagnesemia: Status: Acute (10) Sepsis: Status: Acute (11) Acute respiratory failure with hypoxia: Status: Acute (12) Right lower lobe pneumonia: Status: Acute Qualifiers: Pneumonia type: due to unspecified organism Qualified Code(s): J18.9 - Pneumonia, unspecified organism Additional A&P Information Hypokalemia and hypomagnesemia This most likely secondary to use of diuretics such as Lasix Potassium and magnesium repletion Prolonged QTC noted I would avoid Levaquin and use cefepime instead Grade 1 diastolic dysfunction Preserved ejection fraction currently clinically she is not fluid overloaded I would hold Lasix for now However BNP is [address]ogram given contrast allergy, cannot do ventilation/perfusion scan as she is being evaluated for Covid Pleuritic chest pain right-sided Likely from pleural effusion, parapneumonic effusion, will treat Hold disease modifying agents for now Full code Cardiac diet DVT prophylaxis Lovenox on hold for bronchoscopy Attestations Medical Necessity Statement*: Patient requires hospitalization for acute re spiratory failure secondary right lower lobe pneumonia Coding Level of Care Code Acute Direct Support Staff Member for g Fwd Diagnoses Acute respiratory failure with hypoxia and hypercapnia J96.01; J96.02 Immunocompromised D84.9 Hypokalemia E87.6 High risk medication use Z79.899 Hypothyroidism E03.8 Hypothyroidism type: other GERD without esophagitis K21.9 Seronegative rheumatoid arthritis M06.00 COPD (chronic obstructive pulmonary disease) J44.1 COPD type: COPD with acute exacerbation Hypomagnesemia E83.42 Sepsis A41.9 Acute respiratory failure with hypoxia J96.01 Right lower lobe pneumonia J18.9 Pneumonia type: due to unspecified organism
[2020-09-05 14:16] LABS: Coronavirus Test Green County Not Detected
[2020-09-05 17:01] LABS: Glucose Point of Care 82 mg/dL (70-110)
[2020-09-05 21:21] LABS: Glucose Point of Care 124 mg/dL (70-110)
[2020-09-05] MEDS: HYDROmorphone 1 mg/mL INJ 1 mL 0.5 MG IVP (23:05)
[2020-09-06] VITALS (16 sets, daily range): BP systolic 111–159; BP diastolic 70–82; PULSE 81–100; RESP 14–24; TEMP 35.9–37.2; O2SAT 91–100
[2020-09-06] MEDS: HYDROmorphone 1 mg/mL INJ 1 mL 2 MG IVP ×5 (03:50→21:59)
[2020-09-06 05:26] LABS: Basophils % 0.2 %; Eosinophils # 0.1 10^3/uL (0.0-0.8); Eosinophils % 0.6 %; Hematocrit 37.9 % (37.0-47.0); Hemoglobin 11.7 g/dL (11.5-15.3); Lymphocytes # 1.6 10^3/uL (0.8-4.8); Lymphocytes % 7.7 %; Mean Corpuscular HGB Conc 30.9 g/dL (30.0-36.0); Mean Corpuscular Hemoglobin 29.8 pg (28.0-34.0); Mean Corpuscular Volume 96.7 fL (81-99); Monocytes # 2.9 10^3/uL (0.2-0.9); Neutrophils # 15.38 10^3/uL (1.8-7.7); Neutrophils % 75.6 %; Nucleated Red Blood Cells % 0 %; Platelet Count 449 10^3/cmm (130-400); Red Blood Count 3.92 10^6/uL (4.1-5.3); Red Cell Distribution Width 14.9 % (12.1-15.1); White Blood Count 20.4 10^3/uL (4.0-10.0)
[2020-09-06 05:40] LABS: INR 0.99 (0.8-1.2)
[2020-09-06 06:19] LABS: Alanine Aminotransferase 8 U/L (0-33); Albumin Level 3.1 g/dL (3.5-5.2); Alkaline Phosphatase 125 IU/L (35-105); Anion Gap 14.2 (5-19); Aspartate Amino Transferase 17 U/L (0-32); Blood Urea Nitrogen 8 mg/dL (6-20); Calcium 9.2 mg/dL (8.5-10.5); Carbon Dioxide 29 mmol/L (22-29); Chloride 97 mmol/L (98-107); Globulin 3.9 g/dL (1.3-4.6); Glomerular Filtration Rate 127.6 mL/min (90-130); Glucose 100 mg/dL (65-115); Magnesium 1.8 mg/dL (1.7-2.3); Osmolality Calculated 282 mOsm/kg (285-295); Phosphorus 3.7 mg/dL (2.5-4.5); Potassium 3.2 mmol/L (3.5-5.1); Sodium 137 mmol/L (136-145); Total Bilirubin 0.3 mg/dL (0.15-1.2)
[2020-09-06] MEDS: aztreonam 2,000 MG in sodium chloride 0.9% (plus) 100 ML 200 MG IV ×3 (06:30→23:39)
[2020-09-06 06:32] LABS: NT Pro B Type Natriuretic Pept 788 pg/mL (0-125); Procalcitonin 0.15 ng/mL (0-0.5)
[2020-09-06 06:43] LABS: Creatine Phosphokinase 16 U/L (26-192)
[2020-09-06 06:57] LABS: Fibrinogen 800 mg/dL (174-498); Partial Thromboplastin Time 33.6 SECONDS (23.9-36.7)
[2020-09-06 07:00] LABS: D Dimer 1.87 ug/mIFEU (0-0.59)
[2020-09-06] MEDS: enoxaparin 40 mg/0.4 mL Syringe SUBCUT (08:00)
[2020-09-06] MEDS: vancomycin 1,250 MG/250 ML PIGGYBACK 250 MG IV ×2 (08:01→21:29)
[2020-09-06] MEDS: dilTIAZem 30 mg Tablet PO ×3 (08:01→20:52)
[2020-09-06] MEDS: sennosides-docusate Tablet 1 TAB PO (08:01)
[2020-09-06] MEDS: cloNIDine 0.1 mg Tablet PO (08:01)
[2020-09-06] MEDS: levothyroxine 88 mcg Tablet PO (08:01)
[2020-09-06] MEDS: pantoprazole DR 40 mg Tablet PO (08:01)
[2020-09-06] MEDS: carvedilol 25 mg Tablet PO ×2 (08:01→17:23)
[2020-09-06] MEDS: atorvastatin 40 mg Tablet PO (08:06)
[2020-09-06] MEDS: potassium chloride ER 20 mEq Tablet 40 MEQ PO (10:39)
[2020-09-06] MEDS: FUROsemide 10 mg/mL SDV 2mL 20 MG IVP (10:39)
--- NOTE | 2020-09-06 11:52 | PC.SOCIAL ---
IMM Update Pg. [facility] of [facility] updated and reviewed with patient who verbalized understanding, copy provided.
[2020-09-06 11:59] LABS: Glucose Point of Care 136 mg/dL (70-110)
--- NOTE | 2020-09-06 16:17 | PM.PN ---
Subjective Subjective: Interval history: This morning patient is doing much better, she is feeling better, still having some right-sided chest discomfort, down to 4 L, afebrile, encouraged ambulation today Vitals/I&O/Wt Last Vital Signs Temp 98.9 F 09/06/20 16:00 Pulse 83 09/06/20 16:00 Resp 18 09/06/20 16:00 BP 123/72 09/06/20 16:00 Pulse Ox 92 09/06/20 16:00 09/06/20 09/06/20 09/06/20 06:59 14:59 22:59 Intake Total 100 / 1400 950 / 950 Output Total 1400 / 1400 Balance 100 / -1300 -450 / -450 Physical Exam Const: COMMON NORMALS: no acute distress and patient oriented x3 HENMT: COMMON NORMALS: normocephalic HEAD & SCALP: normocephalic Neck/C-Spine: COMMON NORMALS: no JVD Resp: COMMON NORMALS: normal respiratory effort, No retractions, No use of accessory muscles and clear to auscultation bilaterally AUSCULTATION: clear to auscultation bilaterally Cardio: COMMON NORMALS: no JVD, regular rate, regular rhythm, S1 normal heart sound present and S2 normal heart sound present RATE: regular rate RHYTHM: regular rhythm HEART SOUNDS: S1 normal heart sound present and S2 normal heart sound present GI: COMMON NORMALS: Normal to inspection, nondistended, normoactive bowel sounds present, Soft to palpation, non-tender, No hepatosplenomegaly present, no masses and no bruits PALPATION: Yes Soft to palpation and Yes No hepatosplenomegaly present Extremity: COMMON NORMALS: capillary refill normal, no clubbing, cyanosis or edema, no calf tenderness and no pedal edema Neuro: COMMON NORMALS: patient oriented x3 Psych: COMMON NORMALS: mental status grossly normal Data : 09/06/20 04:51 09/06/20 04:51 Micro: Microbiology 09/06/20 10:20 Blood Culture - Preliminary Blood SPECIMEN COLLECTED 09/06/20 10:25 Blood Culture - Preliminary Blood SPECIMEN COLLECTED 09/02/20 21:31 Blood Culture - Preliminary Blood Coagulase negativ staphylococc A&P Assessment and plan (1) Acute respiratory failure with hypoxia and hypercapnia: -Secondary to right lower lobe pneumonia with parapneumonic effusion -Review of the CT scan shows a right lower lobe density, with parapneumonic effusion extending to the anterior thorax, that is concerning -There is still a question if this is a pneumonia versus a soft tissue mass with associated hemothorax -In addition there is still question if the solid density represents an aspergilloma or tuberculosis focus -In addition patient's D-dimer is elevated, CT angiogram of the chest was ordered last night, but not performed as of yet -Patient is immunocompromise as she has a history of seronegative rheumatoid arthritis, is on abatacept, prednisone, methotrexate -Leukocytosis 20.4, down to the 4 L nasal cannula, clinically improving -Strandy opacities and some consolidation is seen superimposed over the pleural effusion and right hemidiaphragm compatible with right basilar pneumonia. There is a rounded mass effect seen in the right middle lobe anteriorly measuring 4.2 cm AP dimension by 4.5 cm craniocaudal dimension approximately 5.3 cm transverse dimension. This may represent rounded pneumonia although a underlying soft tissue mass cannot be excluded. No mass was seen on a chest radiograph dated 10/15/2019, rounded area consolidation is seen in the right lung base in a chest today. -LV systolic function is normal with EF of 55 to 60%. Diastolic function is normal. There is trace mitral regurgitation. There is mild to moderate aortic regurgitation. Mild tricuspid regurgitation. Compared to prior echocardiogram from 05/04/2018, no significant changes are noted. -Dr. Garcia advised that there is no significant fluid to drain PLAN: -Currently on MedSurg -Currently on 4 L -High flow to decrease work of breathing, BiPAP as needed -On broad-spectrum antibiotics vancomycin, aztreonam -Plan for bronchoscopy today -Covid pending, AFB smears x3 not required -tb quantiferon negaTIVE -Galactomannan, histoplasma pending -Off isolation -CT of the chest does show a soft tissue mass of the right lower lobe, is a chronic smoker -If patient does not clinically improve, she might require CT surgery evaluation for possible thoracotomy and decortication -Full code -Resume Lovenox for DVT prophylaxis -Plavix on hold Status: Acute (2) Immunocompromised: Status: Acute (3) Hypokalemia: Status: Acute (4) High risk medication use: Status: Acute (5) Hypothyroidism: Status: Acute Qualifiers: Hypothyroidism type: other Qualified Code(s): E03.8 - Other specified hypothyroidism (6) GERD without esophagitis: Status: Acute (7) Seronegative rheumatoid arthritis: Status: Acute (8) COPD (chronic obstructive pulmonary disease): Status: Acute Qualifiers: COPD type: COPD with acute exacerbation Qualified Code(s): J44.1 - Chronic obstructive pulmonary disease with (acute) exacerbation (9) Hypomagnesemia: Status: Acute (10) Sepsis: Status: Acute (11) Acute respiratory failure with hypoxia: Status: Acute (12) Right lower lobe pneumonia: Status: Acute Qualifiers: Pneumonia type: due to unspecified organism Qualified Code(s): J18.9 - Pneumonia, unspecified organism Additional A&P Information Hypokalemia and hypomagnesemia This most likely secondary to use of diuretics such as Lasix Potassium and magnesium repletion Prolonged QTC noted I would avoid Levaquin and use cefepime instead Grade 1 diastolic dysfunction Preserved ejection fraction currently clinically she is not fluid overloaded I would hold Lasix for now However BNP is [address] angiogram given contrast allergy, cannot do ventilation/perfusion scan as she is being evaluated for Covid Pleuritic chest pain right-sided Likely from pleural effusion, parapneumonic effusion, will treat Hold disease modifying agents for now Full code Cardiac diet DVT prophylaxis Lovenox Attestations Medical Necessity Statement*: Patient requires hospitalization for acute respiratory failure secondary to pneumonia, parapneumonic effusion, Coding Level of Care 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
[2020-09-06 16:31] LABS: Glucose Point of Care 148 mg/dL (70-110)
[2020-09-06 20:12] LABS: Vancomycin Trough 15.5 ug/mL (10-15)
[2020-09-06] MEDS: albuterol 8 gm MDI 2 PUFF INHALATION (20:16)
--- NOTE | 2020-09-06 20:56 | P.PN_ITS ---
Subjective Subjective: Interval history: Clinically improving Says her right-sided chest pain is better today but still has some discomfort Down to 4 L nasal cannula Vitals/I&O/Wt Last Vital Signs Temp 98.9 F 09/06/20 20:00 Pulse 85 09/06/20 20:21 Resp 19 H 09/06/20 20:16 BP 128/82 09/06/20 20:00 Pulse Ox 94 09/06/20 20:16 09/06/20 09/06/20 09/06/20 06:59 14:59 22:59 Intake Total 100 / 1400 950 / 950 100 / 1050 Output Total 1400 / 1400 Balance 100 / -1300 -450 / -450 100 / -350 Physical Exam Narrative: EXAM NARRATIVE: General: alert, NAD Pain 4/10 on right side chest HEENT: conj clear, EOMI, PERRL, mmm, Neck: supple, no meningismus Heme: no cervical LAP Pulmonary: Reduced breath sounds right lower lobe Cardiovascular: rrr, nl s1s2, no mrg Abdomen: soft, nt, nd, no r/g, bs+ Extremities: pulses +, no edema, no c/c : no CVA tenderness Skin: intact, no rash MSK: no back or neck pain Neurologic: grossly intact Data : 09/06/20 04:51 09/06/20 04:51 Micro: Microbiology 09/06/20 10:20 Blood Culture - Preliminary Blood SPECIMEN COLLECTED 09/06/20 10:25 Blood Culture - Preliminary Blood SPECIMEN COLLECTED A&P Assessment and plan (1) Acute respiratory failure with hypoxia and hypercapnia: Status: Acute (2) Right lower lobe pneumonia: Status: Acute Qualifiers: Pneumonia type: due to unspecified organism Qualified Code(s): J18.9 - Pneumonia, unspecified organism (3) Immunocompromised: Status: Acute (4) Acute hypercapnic respiratory failure: Status: Acute (5) Smoking: Status: Acute (6) COPD (chronic obstructive pulmonary disease): Status: Acute Qualifiers: COPD type: COPD with acute exacerbation Qualified Code(s): J44.1 - Chronic obstructive pulmonary disease with (acute) exacerbation (7) Pleural effusion on right: Status: Acute (8) Aortic regurgitation: Status: Acute Qualifiers: Cardiac valve disease etiology: etiology unspecified Qualified Code(s): I35.1 - Nonrheumatic aortic (valve) insufficiency (9) Seronegative rheumatoid arthritis: Status: Acute #Acute hypercapnic hypoxic respiratory failure secondary to right lower lobe pneumonia #However responding to antibiotics for RLL pneumonia #low threshold for fungal infection due to immunocompromised status #Patient likely immunocompromised as she was on abatacept, methotrexate, prednisone for her rheumatoid arthritis #Held the Plavix (patient states she was given for ?? aortic regurgitation) for possible intervention (either bronchoscopy/thoracotomy if patient does not improve) #COPD and chronic smoker - Chest CT 09/02/2020:right lower lobe density, with parapneumonic effusion extending to the anterior thorax, that is concerning -There is still a question if this is a pneumonia versus a soft tissue mass with associated hemothorax. -In addition there is still question if the solid density represents an aspergillosis/Nocardia or tuberculosis focus - Follow-up evaluation with a repeat CT examination of the chest is suggested when the patient's acute symptoms have resolved. - currently on vancomycin and aztreonam ; saturating well on 4 L nasal cannula and not in acute respiratory distress and reports improvement in her shortness of breath -Improving WBC and no more fever spikes -In addition patient's D-dimer is elevated, -Off COVID-19 and TB precautions; Covid rapid antigen, PCR and TB QuantiFERON: Negative -3 smears of sputum for AFB and culture TB, Aspergillus, COVID-19, sputum, fungal smears -pending #Complicated right pleural effusion -likely parapneumonic due to ongoing infection versus inflammatory due to underlying seronegative rheumatoid arthritis vs possible ?? Underlying malignancy as patient is a chronic smoker - Chest ultrasound 08/28/2020: There is a moderate size right pleural effusion with internal debris. Internal complexity may represent infection and/or hemorrhagic products. -Bedside ultrasound on 09/04/2020 of right chest showed complicated mild effusion which is difficult to tap and mirror image artifact suggestive of hepatization phase of right lower lobe consolidation = Plavix held 09/03/2020 but no good window to tap the effusion -high risk of pneumothorax - currently on vancomycin and aztreonam and patient is clinically improving with decreasing oxygen requirements and subjective improvement of symptoms -If patient has persistent right chest pain , quite possible from pleural adhesions or nonresolving pneumonia -we will plan for bronchoscopy with Biopsy and BAL and recommend CT surgery evaluation for possible thoracotomy and deco rtication. #CT chest imaging suspicious for underlying soft tissue mass over RLL consolidation in a chronic smoker -We will treat superimposing pneumonia first and repeat imaging still persist with masslike lesion then we will plan for navigational bronchoscopy guided TBB and EBUS guided FNA C to rule out malignancy - If patient does not respond clinically we will go ahead and do a bronchoscopy and BAL for cultures and cytology -Plavix was held just yesterday on 09/03/2020 #COPD and chronic smoker -Counseled to quit smoking -patient verbalized understanding of the complications of smoking like worsening emphysema/lung cancer/other cancer/coronary artery disease/stroke/peripheral arterial disease and agreed to quit -No PFTs available and patient is on Trelegy and albuterol as needed -We will follow-up in pulmonary clinic and we will order PFTs as outpatient - Recommended to stay up-to-date with flu and Pneumovax -Continue nebulization every 6 hr as needed for shortness of breath/wheezing while in hospital Medical condition, labs, investigations, medications, counseling regarding medication compliance, side effects, importance of follow-up appointments, smoking-its adverse effects and importance of cessation and plan of care- everything explained in detail to the patient. Patient verbalized understanding and agreed with the plan of care. Attestations Medical Necessity Statement*: Acute hypoxic hypercapnic respiratory failure secondary to right lower lobe pneumonia with suspected underlying masslike lesion requiring high O2, currently receiving antibiotics and responding clinically. Time Spent in Patient Care: 16 - 35 minutes (>than 50% of time spent in counselling and/or direct pt care on unit) . 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 Type Established History Comprehensive Exam Comprehensive Medical Decision Making High Complexity Diagnoses Acute respiratory failure with hypoxia and hypercapnia J96.01; J96.02 Right lower lobe pneumonia J18.9 Pneumonia type: due to unspecified organism Immunocompromised D84.9 Acute hypercapnic respiratory failure J96.02 Smoking F17.200 COPD (chronic obstructive pulmonary disease) J44.1 COPD type: COPD with acute exacerbation Pleural effusion on right J90 Aortic regurgitation I35.1 Cardiac valve disease etiology: etiology unspecified Seronegative rheumatoid arthritis M06.00 Time Spent (min) 25
[2020-09-06 21:28] LABS: Glucose Point of Care 162 mg/dL (70-110)
[2020-09-07] VITALS (16 sets, daily range): BP systolic 114–155; BP diastolic 68–88; PULSE 81–99; RESP 16–22; TEMP 36.6–37.2; O2SAT 90–93
[2020-09-07] MEDS: HYDROmorphone 1 mg/mL INJ 1 mL 2 MG IVP ×5 (03:02→19:48)
[2020-09-07 05:46] LABS: Basophils % 0.2 %; Eosinophils # 0.4 10^3/uL (0.0-0.8); Hematocrit 32.9 % (37.0-47.0); Hemoglobin 10.5 g/dL (11.5-15.3); Lymphocytes # 1.8 10^3/uL (0.8-4.8); Lymphocytes % 8.5 %; Mean Corpuscular HGB Conc 31.9 g/dL (30.0-36.0); Mean Corpuscular Hemoglobin 30.3 pg (28.0-34.0); Mean Corpuscular Volume 94.8 fL (81-99); Mean Platelet Volume 10.3 fL (7.4-10.4); Monocytes # 2.6 10^3/uL (0.2-0.9); Neutrophils # 16.23 10^3/uL (1.8-7.7); Neutrophils % 75.7 %; Nucleated Red Blood Cells % 0 %; Platelet Count 339 10^3/cmm (130-400); Red Blood Count 3.47 10^6/uL (4.1-5.3); White Blood Count 21.4 10^3/uL (4.0-10.0)
[2020-09-07 06:02] LABS: Lactate (Lactic Acid level) 1.2 mmol/L (0.5-2.2)
[2020-09-07 06:03] LABS: Alanine Aminotransferase 9 U/L (0-33); Albumin Level 2.7 g/dL (3.5-5.2); Alkaline Phosphatase 114 IU/L (35-105); Aspartate Amino Transferase 10 U/L (0-32); Blood Urea Nitrogen 9 mg/dL (6-20); C Reactive Protein 284.4 mg/L (0.0-4.9); Calcium 9.2 mg/dL (8.5-10.5); Carbon Dioxide 29 mmol/L (22-29); Chloride 93 mmol/L (98-107); Globulin 3.9 g/dL (1.3-4.6); Glomerular Filtration Rate 127.6 mL/min (90-130); Glucose 137 mg/dL (65-115); Magnesium 1.6 mg/dL (1.7-2.3); Osmolality Calculated 275 mOsm/kg (285-295); Sodium 132 mmol/L (136-145); Total Bilirubin 0.2 mg/dL (0.15-1.2); Total Protein 6.6 g/dL (6.6-8.7)
[2020-09-07] MEDS: aztreonam 2,000 MG in sodium chloride 0.9% (plus) 100 ML 200 MG IV ×3 (06:20→21:51)
[2020-09-07 06:34] LABS: NT Pro B Type Natriuretic Pept 165 pg/mL (0-125); Procalcitonin 0.16 ng/mL (0-0.5)
[2020-09-07 06:34] LABS: Glucose Point of Care 128 mg/dL (70-110)
[2020-09-07] MEDS: vancomycin 1,250 MG/250 ML PIGGYBACK 250 MG IV ×2 (07:31→20:25)
[2020-09-07] MEDS: enoxaparin 40 mg/0.4 mL Syringe SUBCUT (07:32)
[2020-09-07] MEDS: albuterol 8 gm MDI 2 PUFF INHALATION ×2 (08:53→20:30)
[2020-09-07] MEDS: atorvastatin 40 mg Tablet PO (08:56)
[2020-09-07] MEDS: cloNIDine 0.1 mg Tablet PO (08:57)
[2020-09-07] MEDS: carvedilol 25 mg Tablet PO ×2 (08:57→17:39)
[2020-09-07] MEDS: pantoprazole DR 40 mg Tablet PO (08:57)
[2020-09-07] MEDS: sennosides-docusate Tablet 1 TAB PO (08:57)
[2020-09-07] MEDS: levothyroxine 88 mcg Tablet PO (08:57)
[2020-09-07] MEDS: dilTIAZem 30 mg Tablet PO ×3 (08:57→20:50)
[2020-09-07] MEDS: potassium chloride ER 20 mEq Tablet 60 MEQ PO (10:46)
[2020-09-07] MEDS: magnesium oxide 400 mg tablet 800 MG PO (10:47)
[2020-09-07 10:58] LABS: Glucose Point of Care 119 mg/dL (70-110)
--- NOTE | 2020-09-07 11:50 | P.PN_ITS ---
Subjective Subjective: Interval history: Patient continues to clinically improve, remains afebrile, but continues to have pain on the right side, will continue to monitor, ambulating with some shortness of breath, still on 4 L, overall doing better, having a productive cough Vitals/I&O/Wt Last Vital Signs Temp 98.4 F 09/07/20 08:00 Pulse 99 09/07/20 08:54 Resp 18 09/07/20 11:28 BP 155/88 09/07/20 08:57 Pulse Ox 92 09/07/20 08:54 09/06/20 09/07/20 09/07/20 22:59 06:59 14:59 Intake Total 350 / 1300 100 / 1400 120 / 120 Output Total 800 / 2200 Balance 350 / -100 -700 / -800 120 / 120 Physical Exam Const: COMMON NORMALS: no acute distress and patient oriented x3 HENMT: COMMON NORMALS: normocephalic HEAD & SCALP: normocephalic Neck/C-Spine: COMMON NORMALS: no JVD Resp: COMMON NORMALS: normal respiratory effort, No retractions and No use of accessory muscles AUSCULTATION: diminished lung sounds on the right in the lower lung allred Cardio: COMMON NORMALS: no JVD, regular rate, regular rhythm, S1 normal heart sound present and S2 normal heart sound present RATE: regular rate RHYTHM: regular rhythm HEART SOUNDS: S1 normal heart sound present and S2 normal heart sound present GI: COMMON NORMALS: Normal to inspection, nondistended, normoactive bowel sounds present, Soft to palpation, non-tender, No hepatosplenomegaly present, no masses and no bruits PALPATION: Yes Soft to palpation and Yes No hepatosplenomegaly present Extremity: COMMON NORMALS: capillary refill normal, no clubbing, cyanosis or edema, no calf tenderness and no pedal edema Neuro: COMMON NORMALS: patient oriented x3 Psych: COMMON NORMALS: mental status grossly normal Data : 09/07/20 05:32 09/07/20 05:32 Micro: Microbiology 09/06/20 10:20 Blood Culture - Preliminary Blood NEGATIVE TO DATE 09/06/20 10:25 Blood Culture - Preliminary Blood NEGATIVE TO DATE 09/02/20 21:31 Blood Culture - Preliminary Blood Micrococcus and related genera A&P Assessment and plan (1) Acute respiratory failure with hypoxia and hypercapnia: -Secondary to right lower lobe pneumonia with parapneumonic effusion -Review of the CT scan shows a right lower lobe density, with parapneumonic effusion extending to the anterior thorax, that is concerning -There is still a question if this is a pneumonia versus a soft tissue mass with associated hemothorax -In addition there is still question if the solid density represents an aspergilloma or tuberculosis focus -In addition patient's D-dimer is elevated, CT angiogram of the chest was ordered last night, but not performed as of yet -Patient is immunocompromise as she has a history of seronegative rheumatoid art hritis, is on abatacept, prednisone, methotrexate -Leukocytosis 21.4 down to the 4 L nasal cannula, clinically improving -Strandy opacities and some consolidation is seen superimposed over the pleural effusion and right hemidiaphragm compatible with right basilar pneumonia. There is a rounded mass effect seen in the right middle lobe anteriorly measuring 4.2 cm AP dimension by 4.5 cm craniocaudal dimension approximately 5.3 cm transverse dimension. This may represent rounded pneumonia although a underlying soft tissue mass cannot be excluded. No mass was seen on a chest radiograph dated 10/15/2019, rounded area consolidation is seen in the right lung base in a chest today. -LV systolic function is normal with EF of 55 to 60%. Diastolic function is normal. There is trace mitral regurgitation. There is mild to moderate aortic regurgitation. Mild tricuspid regurgitation. Compared to prior echocardiogram from 05/04/2018, no significant changes are noted. -Dr. Garcia advised that there is no significant fluid to drain PLAN: -Currently on MedSurg -Currently on 4 L -High flow to decrease work of breathing, BiPAP as needed -On broad-spectrum antibiotics vancomycin, aztreonam, de-escalate tomorrow -Continues have pain on the right side, if this persists she might require CT surgery evaluation for thoracotomy and decortication or navigational bronchoscopy, possible pleural adhesions or empyema as etiology or soft tissue mass -Covid pending, AFB smears x3 not required -tb quantiferon negaTIVE -Galactomannan, histoplasma pending -Off isolation -CT of the chest does show a soft tissue mass of the right lower lobe, is a chronic smoker, will require outpatient follow-up -Full code - Lovenox for DVT prophylaxis -Plavix on hold Status: Acute (2) Immunocompromised: Status: Acute (3) Hypokalemia: Status: Acute (4) High risk medication use: Status: Acute (5) Hypothyroidism: Status: Acute Qualifiers: Hypothyroidism type: other Qualified Code(s): E03.8 - Other specified hypothyroidism (6) GERD without esophagitis: Status: Acute (7) Seronegative rheumatoid arthritis: Status: Acute (8) COPD (chronic obstructive pulmonary disease): Status: Acute Qualifiers: COPD type: COPD with acute exacerbation Qualified Code(s): J44.1 - Chronic obstructive pulmonary disease with (acute) exacerbation (9) Hypomagnesemia: Status: Acute (10) Sepsis: Status: Acute (11) Acute respiratory failure with hypoxia: Status: Acute (12) Right lower lobe pneumonia: Status: Acute Qualifiers: Pneumonia type: due to unspecified organism Qualified Code(s): J18.9 - Pneumonia, unspecified organism Additional A&P Information Hypokalemia and hypomagnesemia This most likely secondary to use of diuretics such as Lasix Potassium and magnesium repletion Prolonged QTC noted I would avoid Levaquin and use cefepime instead Hyponatremia, likely secondary to diuretic therapy, continue to monitor Grade 1 diastolic dysfunction Preserved ejection fraction currently clinically she is not fluid overloaded I would hold Lasix for now However BNP is [address] angiogram given contrast allergy, cannot do ventilation/perfusion scan as she is being evaluated for Covid Pleuritic chest pain right-sided Likely from pleural effusion, parapneumonic effusion, will treat Hold disease modifying agents for now Full code Cardiac diet DVT prophylaxis Lovenox Plan for today, continue antibiotic therapy, de-escalate in the next 24 hours, continue to monitor right-sided chest discomfort, encourage ambulation, PT OT, replace electrolytes Attestations Medical Necessity Statement*: Patient requires hospitalization for acute respiratory failure secondary to pneumonia 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
[2020-09-07 17:31] LABS: Glucose Point of Care 120 mg/dL (70-110)
[2020-09-07 18:48] LABS: Aspergillus AG,EIA,Serum NOT DETECTED; Aspergillus Galactomannan Inde <0.50
[2020-09-07 21:25] LABS: Glucose Point of Care 123 mg/dL (70-110)
[2020-09-08] VITALS (18 sets, daily range): BP systolic 105–137; BP diastolic 53–77; PULSE 76–98; RESP 16–20; TEMP 36.7–37.6; O2SAT 91–97
[2020-09-08] MEDS: HYDROmorphone 1 mg/mL INJ 1 mL 2 MG IVP ×5 (00:27→20:05)
[2020-09-08 05:13] LABS: Basophils # 0.1 10^3/uL (0.0-0.1); Basophils % 0.3 %; Eosinophils # 0.5 10^3/uL (0.0-0.8); Eosinophils % 2.2 %; Hematocrit 33.2 % (37.0-47.0); Hemoglobin 10.3 g/dL (11.5-15.3); Lymphocytes # 1.9 10^3/uL (0.8-4.8); Lymphocytes % 8.7 %; Mean Corpuscular Hemoglobin 29.7 pg (28.0-34.0); Mean Corpuscular Volume 95.7 fL (81-99); Mean Platelet Volume 10.4 fL (7.4-10.4); Monocytes # 2.4 10^3/uL (0.2-0.9); Monocytes % 10.9 %; Neutrophils # 16.44 10^3/uL (1.8-7.7); Neutrophils % 75.5 %; Nucleated Red Blood Cells % 0 %; Platelet Count 428 10^3/cmm (130-400); Red Blood Count 3.47 10^6/uL (4.1-5.3); Red Cell Distribution Width 15.2 % (12.1-15.1); White Blood Count 21.8 10^3/uL (4.0-10.0)
[2020-09-08] MEDS: aztreonam 2,000 MG in sodium chloride 0.9% (plus) 100 ML 200 MG IV ×3 (05:38→22:30)
[2020-09-08 05:41] LABS: INR 1.04 (0.8-1.2)
[2020-09-08 05:53] LABS: NT Pro B Type Natriuretic Pept 165 pg/mL (0-125); Procalcitonin 0.22 ng/mL (0-0.5)
[2020-09-08 06:01] LABS: Alanine Aminotransferase 8 U/L (0-33); Albumin Level 2.6 g/dL (3.5-5.2); Alkaline Phosphatase 119 IU/L (35-105); Anion Gap 10.3 (5-19); Aspartate Amino Transferase 9 U/L (0-32); Blood Urea Nitrogen 7 mg/dL (6-20); C Reactive Protein 334.2 mg/L (0.0-4.9); Calcium 9.3 mg/dL (8.5-10.5); Carbon Dioxide 31 mmol/L (22-29); Chloride 95 mmol/L (98-107); Globulin 4.1 g/dL (1.3-4.6); Glomerular Filtration Rate 127.6 mL/min (90-130); Glucose 113 mg/dL (65-115); Magnesium 1.9 mg/dL (1.7-2.3); Osmolality Calculated 275 mOsm/kg (285-295); Phosphorus 2.9 mg/dL (2.5-4.5); Potassium 3.3 mmol/L (3.5-5.1); Sodium 133 mmol/L (136-145); Total Bilirubin 0.2 mg/dL (0.15-1.2); Total Protein 6.7 g/dL (6.6-8.7)
--- NOTE | 2020-09-08 07:00 | XR_ITS ---
WS: [id number] Exam: XR chest 1V portable [id number] Date/Time of Exam: 09/08/2020 7:00 AM Reason For Exam: sob Comparison 09/04/2020. Right basal pleural effusion shows improvement. There is now partial ventilation of the middle and lo wer lobes the right lung. The left lung remains clear. Heart size is unchanged. The mediastinum and b elizabeth thorax are intact. XR/XR chest 1V portable [id number] IMPRESSION: 1. Right basal pleural effusion showing some improvement. There is partial vent ilation of the middle and lower lobes the right lung. There is still a prominen t consolidated density seen in the right basal region that may represent densel y consolidated pneumonia, mass or atelectasis.
[2020-09-08 07:06] LABS: Glucose Point of Care 134 mg/dL (70-110)
[2020-09-08] MEDS: ipratropium-albuterol 3 mL Neb INHALATION ×2 (08:13→14:59)
[2020-09-08] MEDS: sennosides-docusate Tablet 1 TAB PO (08:43)
[2020-09-08] MEDS: cloNIDine 0.1 mg Tablet PO (08:43)
[2020-09-08] MEDS: atorvastatin 40 mg Tablet PO (08:43)
[2020-09-08] MEDS: pantoprazole DR 40 mg Tablet PO (08:43)
[2020-09-08] MEDS: dilTIAZem 30 mg Tablet PO ×3 (08:43→20:25)
[2020-09-08] MEDS: carvedilol 25 mg Tablet PO ×2 (08:43→16:48)
[2020-09-08] MEDS: vancomycin 1,250 MG/250 ML PIGGYBACK 250 MG IV ×2 (08:43→20:24)
[2020-09-08] MEDS: enoxaparin 40 mg/0.4 mL Syringe SUBCUT (08:43)
[2020-09-08] MEDS: fluoxetine 20 mg Capsule PO (08:44)
[2020-09-08] MEDS: levothyroxine 88 mcg Tablet PO (08:44)
--- NOTE | 2020-09-08 10:00 | PC.SOCIAL ---
IMM Updated Updated pt on Pg 2 IMM. No questions voiced. Provided pt a copy. Signed, dated, & timed copy in chart.
[2020-09-08] MEDS: FUROsemide 10 mg/mL SDV 2mL 20 MG IVP (11:24)
[2020-09-08 11:40] LABS: Glucose Point of Care 166 mg/dL (70-110)
[2020-09-08] MEDS: potassium chloride ER 20 mEq Tablet 40 MEQ PO (12:38)
--- NOTE | 2020-09-08 12:39 | PM.PN ---
Subjective Subjective: Interval history: Patient was seen this morning, is doing better, is on 5 L, however she continues to have pain on the right side, some shortness of breath with exertion, no nausea, no vomiting Vitals/I&O/Wt Last Vital Signs Temp 99.4 F 09/08/20 08:00 Pulse 98 09/08/20 11:29 Resp 20 H 09/08/20 11:24 BP 117/70 09/08/20 11:29 Pulse Ox 95 09/08/20 08:14 09/07/20 09/08/20 09/08/20 22:59 06:59 14:59 Intake Total 870 / 1390 500 / 1890 Output Total 800 / 800 1000 / 1800 800 / 800 Balance 70 / 590 -500 / 90 -800 / -800 Physical Exam Const: COMMON NORMALS: no acute distress and patient oriented x3 HENMT: COMMON NORMALS: normocephalic HEAD & SCALP: normocephalic Neck/C-Spine: COMMON NORMALS: no JVD Resp: COMMON NORMALS: normal respiratory effort, No retractions and No use of accessory muscles AUSCULTATION: wheezes Cardio: COMMON NORMALS: no JVD, regular rate, regular rhythm, S1 normal heart sound present and S2 normal heart sound present RATE: regular rate RHYTHM: regular rhythm HEART SOUNDS: S1 normal heart sound present and S2 normal heart sound present GI: COMMON NORMALS: Normal to inspection, nondistended, normoactive bowel sounds present, Soft to palpation, non-tender, No hepatosplenomegaly present, no masses and no bruits PALPATION: Yes Soft to palpation and Yes No hepatosplenomegaly present Extremity: COMMON NORMALS: capillary refill normal, no clubbing, cyanosis or edema, no calf tenderness and no pedal edema Neuro: COMMON NORMALS: patient oriented x3 Psych: COMMON NORMALS: mental status grossly normal Data : 09/08/20 04:12 09/08/20 04:12 Micro: Microbiology 09/02/20 21:15 Blood Culture - Final Blood NO GROWTH AFTER 5 DAYS 09/06/20 10:20 Blood Culture - Preliminary Blood NEGATIVE TO DATE 09/06/20 10:25 Blood Culture - Preliminary Blood NEGATIVE TO DATE 09/02/20 21:31 Blood Culture - Preliminary Blood Micrococcus and related genera A&P Assessment and plan (1) Acute respiratory failure with hypoxia and hypercapnia: -Secondary to right lower lobe pneumonia with parapneumonic effusion -Review of the CT scan shows a right lower lobe density, with parapneumonic effusion extending to the anterior thorax, that is concerning -There is still a question if this is a pneumonia versus a soft tissue mass with associated hemothorax -In addition there is still question if the solid density represents an aspergilloma or tuberculosis focus -In addition patient's D-dimer is elevated, CT angiogram of the chest was ordered last night, but not performed as of yet -Patient is immunocompromise as she has a history of seronegative rheumatoid arthritis, is on abatacept, prednisone, methotrexate -Leukocytosis 21.8 down to the 5 L nasal cannula, clinically improving, continues to have pain on the right chest side -Strandy opacities and some consolidation is seen superimposed over the pleural effusion and right hemidiaphragm compatible with right basilar pneumonia. There is a rounded mass effect seen in the right middle lobe anteriorly measuring 4.2 cm AP dimension by 4.5 cm craniocaudal dimension approximately 5.3 cm transverse dimension. This may represent rounded pneumonia although a underlying soft tissue mass cannot be excluded. No mass was seen on a chest radiograph dated 10/15/2019, rounded area consolidation is seen in the right lung base in a chest today. -LV systolic function is normal with EF of 55 to 60%. Diastolic function is normal. There is trace mitral regurgitation. There is mild to moderate aortic regurgitation. Mild tricuspid regurgitation. Compared to prior echocardiogram from 05/04/2018, no significant changes are noted. -Dr. Garcia advised that there is no significant fluid to drain PLAN: -Currently on MedSurg -Currently on 5 L -High flow to decrease work of breathing, BiPAP as needed -On broad-spectrum antibiotics vancomycin, aztreonam, awaiting MRSA of the nares to de-escalate vancomycin -Continues have pain on the right side, if this persists she might require CT surgery evaluation for thoracotomy and decortication or navigational bronchoscopy, possible pleural adhesions or empyema as etiology or soft tissue mass, likely will require CT surgery evaluation and or bronchoscopy -Covid pending, AFB smears x3 not required -tb quantiferon negaTIVE -Galactomannan, histoplasma pending -Off isolation -CT of the chest does show a soft tissue mass of the right lower lobe, is a chronic smoker, will require outpatient follow-up -Full code -Lovenox for DVT prophylaxis -Plavix on hold Plan for today, give 1 dose of Lasix, continue ambulation, continue antibiotics, will likely require surgical intervention or pulmonology intervention on Friday Status: Acute (2) Immunocompromised: Status: Acute (3) Hypokalemia: Status: Acute (4) High risk medication use: Status: Acute (5) Hypothyroidism: Status: Acute Qualifiers: Hypothyroidism type: other Qualified Code(s): E03.8 - Other specified hypothyroidism (6) GERD without esophagitis: Status: Acute (7) Seronegative rheumatoid arthritis: Status: Acute (8) COPD (chronic obstructive pulmonary disease): Status: Acute Qualifiers: COPD type: COPD with acute exacerbation Qualified Code(s): J44.1 - Chronic obstructive pulmonary disease with (acute) exacerbation (9) Hypomagnesemia: Status: Acute (10) Sepsis: Status: Acute (11) Acute respiratory failure with hypoxia: Status: Acute (12) Right lower lobe pneumonia: Status: Acute Qualifiers: Pneumonia type: due to unspecified organism Qualified Code(s): J18.9 - Pneumonia, unspecified organism Additional A&P Information Hyponatremia, sodium 133 Hypokalemia and hypomagnesemia This most likely secondary to use of diuretics such as Lasix Potassium and magnesium repletion Prolonged QTC Hyponatremia, likely secondary to diuretic therapy, continue to monitor Grade 1 diastolic dysfunction Preserved ejection fraction currently clinically she is not fluid overloaded I would hold Lasix for now However BNP is [address] angiogram given contrast allergy, cannot do ventilation/perfusion scan as she is being evaluated for Covid Pleuritic chest pain right-sided Likely from pleural effusion, parapneumonic effusion, will treat Hold disease modifying agents for now Full code Cardiac diet DVT prophylaxis Lovenox Attestations Medical Necessity Statement*: Patient requires hospitalization for acute respiratory failure secondary to right lower lobe pneumonia, parapneumonic effusions, concern for pleural adhesions, will require VATS procedure or bronchoscopy Coding Level of Care Code Acute [employer] for [employer] Diagnoses Acute respiratory failure with hypoxia and hypercapnia J96.01; J96.02 Immunocompromised D84.9 Hypokalemia E87.6 High risk medication use Z79.899 Hypothyroidism E03.8 Hypothyroidism type: other GERD without esophagitis K21.9 Seronegative rheumatoid arthritis M06.00 COPD (chronic obstructive pulmonary disease) J44.1 COPD type: COPD with acute exacerbation Hypomagnesemia E83.42 Sepsis A41.9 Acute respiratory failure with hypoxia J96.01 Right lower lobe pneumonia J18.9 Pneumonia type: due to unspecified organism
[2020-09-08 16:28] LABS: Glucose Point of Care 129 mg/dL (70-110)
[2020-09-08 19:47] LABS: Vancomycin Trough 16.2 ug/mL (10-15)
[2020-09-08 21:28] LABS: Glucose Point of Care 124 mg/dL (70-110)
[2020-09-09] VITALS (16 sets, daily range): BP systolic 116–132; BP diastolic 72–76; PULSE 72–86; RESP 16–22; TEMP 36.6–37.2; O2SAT 91–94
[2020-09-09] MEDS: HYDROmorphone 1 mg/mL INJ 1 mL 2 MG IVP ×6 (00:19→22:12)
[2020-09-09 05:24] LABS: Lactate (Lactic Acid level) 1.2 mmol/L (0.5-2.2)
[2020-09-09 05:29] LABS: Alanine Aminotransferase 6 U/L (0-33); Albumin Level 2.6 g/dL (3.5-5.2); Alkaline Phosphatase 95 IU/L (35-105); Aspartate Amino Transferase 12 U/L (0-32); Blood Urea Nitrogen 7 mg/dL (6-20); C Reactive Protein 240.2 mg/L (0.0-4.9); Calcium 8.9 mg/dL (8.5-10.5); Carbon Dioxide 29 mmol/L (22-29); Chloride 93 mmol/L (98-107); Globulin 4.1 g/dL (1.3-4.6); Glomerular Filtration Rate 103.4 mL/min (90-130); Glucose 109 mg/dL (65-115); Magnesium 1.7 mg/dL (1.7-2.3); Osmolality Calculated 273 mOsm/kg (285-295); Phosphorus 3.4 mg/dL (2.5-4.5); Sodium 132 mmol/L (136-145); Total Bilirubin 0.2 mg/dL (0.15-1.2); Total Protein 6.7 g/dL (6.6-8.7)
[2020-09-09 05:40] LABS: NT Pro B Type Natriuretic Pept 132 pg/mL (0-125); Procalcitonin 0.13 ng/mL (0-0.5)
[2020-09-09] MEDS: aztreonam 2,000 MG in sodium chloride 0.9% (plus) 100 ML 200 MG IV ×3 (06:09→21:44)
[2020-09-09 06:12] LABS: Basophils # 0.1 10^3/uL (0.0-0.1); Basophils % 0.3 %; Eosinophils # 0.5 10^3/uL (0.0-0.8); Eosinophils % 2.9 %; Hematocrit 29.7 % (37.0-47.0); Hemoglobin 9.3 g/dL (11.5-15.3); Lymphocytes % 11.6 %; Mean Corpuscular HGB Conc 31.3 g/dL (30.0-36.0); Mean Corpuscular Hemoglobin 29.3 pg (28.0-34.0); Mean Corpuscular Volume 93.7 fL (81-99); Mean Platelet Volume 10.3 fL (7.4-10.4); Monocytes # 2.3 10^3/uL (0.2-0.9); Monocytes % 13.5 %; Neutrophils # 11.35 10^3/uL (1.8-7.7); Neutrophils % 67.6 %; Nucleated Red Blood Cells % 0 %; Platelet Count 389 10^3/cmm (130-400); Red Blood Count 3.17 10^6/uL (4.1-5.3); Red Cell Distribution Width 15.1 % (12.1-15.1); White Blood Count 16.8 10^3/uL (4.0-10.0)
[2020-09-09 06:23] LABS: INR 0.92 (0.8-1.2)
[2020-09-09 06:49] LABS: Glucose Point of Care 109 mg/dL (70-110)
[2020-09-09] MEDS: levothyroxine 88 mcg Tablet PO (07:59)
[2020-09-09] MEDS: carvedilol 25 mg Tablet PO ×2 (07:59→18:03)
[2020-09-09] MEDS: fluoxetine 20 mg Capsule PO (07:59)
[2020-09-09] MEDS: sennosides-docusate Tablet 1 TAB PO (07:59)
[2020-09-09] MEDS: cloNIDine 0.1 mg Tablet PO (07:59)
[2020-09-09] MEDS: pantoprazole DR 40 mg Tablet PO (07:59)
[2020-09-09] MEDS: atorvastatin 40 mg Tablet PO (07:59)
[2020-09-09] MEDS: dilTIAZem 30 mg Tablet PO ×3 (07:59→21:43)
[2020-09-09] MEDS: enoxaparin 40 mg/0.4 mL Syringe SUBCUT (08:00)
[2020-09-09] MEDS: vancomycin 1,250 MG/250 ML PIGGYBACK 250 MG IV ×2 (08:00→19:35)
[2020-09-09] MEDS: potassium chloride ER 20 mEq Tablet 40 MEQ PO (08:36)
[2020-09-09 11:13] LABS: Glucose Point of Care 126 mg/dL (70-110)
--- NOTE | 2020-09-09 12:52 | PM.PN ---
Subjective Subjective: Interval history: This morning patient was examined, she is down to 4 L, remains afebrile, had fair amount of urine output yesterday, she tells me that she is ambulating, but continues to have the pain on the right side, and some shortness of breath with exertion associated with the pain Vitals/I&O/Wt Last Vital Signs Temp 97.9 F 09/09/20 11:09 Pulse 79 09/09/20 11:09 Resp 20 H 09/09/20 12:35 BP 116/74 09/09/20 11:09 Pulse Ox 91 09/09/20 11:09 09/08/20 09/09/20 09/09/20 22:59 06:59 14:59 Intake Total 500 / 1250 220 / 1470 240 / 240 Output Total 800 / 1600 800 / 800 Balance -300 / -350 220 / -130 -560 / -560 Physical Exam Const: COMMON NORMALS: no acute distress and patient oriented x3 HENMT: COMMON NORMALS: normocephalic HEAD & SCALP: normocephalic Neck/C-Spine: COMMON NORMALS: no JVD Resp: COMMON NORMALS: normal respiratory effort, No retractions and No use of accessory muscles AUSCULTATION: breath sounds absent on the right (right lower lung base) Cardio: COMMON NORMALS: no JVD, regular rate, regular rhythm, S1 normal heart sound present and S2 normal heart sound present RATE: regular rate RHYTHM: regular rhythm HEART SOUNDS: S1 normal heart sound present and S2 normal heart sound present GI: COMMON NORMALS: Normal to inspection, nondistended, normoactive bowel sounds present, Soft to palpation, non-tender, No hepatosplenomegaly present, no masses and no bruits PALPATION: Yes Soft to palpation and Yes No hepatosplenomegaly present Extremity: COMMON NORMALS: capillary refill normal, no clubbing, cyanosis or edema, no calf tenderness and no pedal edema Neuro: COMMON NORMALS: patient oriented x3 Psych: COMMON NORMALS: mental status grossly normal Data : 09/09/20 04:38 09/09/20 04:38 Micro: Microbiology 09/02/20 21:31 Blood Culture - Final Blood Micrococcus and related genera A&P Assessment and plan (1) Acute respiratory failure with hypoxia and hypercapnia: -Secondary to right lower lobe pneumonia with parapneumonic effusion -Review of the CT scan shows a right lower lobe density, with parapneumonic effusion extending to the anterior thorax, that is concerning -There is still a question if this is a pneumonia versus a soft tissue mass with associated hemothorax -In addition there is still question if the solid density represents an aspergilloma or tuberculosis focus -In addition patient's D-dimer is elevated, CT angiogram of the chest was ordered last night, but not performed as of yet -Patient is immunocompromise as she has a history of seronegative rheumatoid arthritis, is on abatacept, prednisone, methotrexate -Leukocytosis 21.8 down to the 5 L nasal cannula, clinically improving, continues to have pain on the right chest side -Strandy opacities and some consolidation is seen superimposed over the pleural effusion and right hemidiaphragm compatible with right basilar pneumonia. There is a rounded mass effect seen in the right middle lobe anteriorly measuring 4.2 cm AP dimension by 4.5 cm craniocaudal dimension approximately 5.3 cm transverse dimension. This may represent rounded pneumonia although a underlying soft tissue mass cannot be excluded. No mass was seen on a chest radiograph dated 10/15/2019, rounded area consolidation is seen in the right lung base in a chest today. -LV systolic function is normal with EF of 55 to 60%. Diastolic function is normal. There is trace mitral regurgitation. There is mild to moderate aortic regurgitation. Mild tricuspid regurgitation. Compared to prior echocardiogram from 05/04/2018, no significant changes are noted. -Dr. Garcia advised that there is no significant fluid to drain PLAN: -Currently on MedSurg -Currently on 5 L -High flow to decrease work of breathing, BiPAP as needed -On broad-spectrum antibiotics vancomycin, aztreonam, awaiting MRSA of the nares to de-escalate vancomycin -Continues have pain on the right side, if this persists she might require CT surgery evaluation for thoracotomy and decortication or navigational bronchoscopy, possible pleural adhesions or empyema as etiology or soft tissue mass, likely will require CT surgery evaluation and or bronchoscopy -Covid negative, AFB smears x3 not required -tb quantiferon negaTIVE -Galactomannan, histoplasma pending -Off isolation -CT of the chest does show a soft tissue mass of the right lower lobe, is a chronic smoker, will require outpatient follow-up -Full code -Lovenox for DVT prophylaxis -Plavix on hold Plan for today, continue open ambulation, continue antibiotics, will do a CT angiogram of the chest to rule out pulmonary emboli given persistent right sided chest wall discomfort, elevated D-dimer Status: Acute (2) Immunocompromised: Status: Acute (3) Hypokalemia: Status: Acute (4) High risk medication use: Status: Acute (5) Hypothyroidism: Status: Acute Qualifiers: Hypothyroidism type: other Qualified Code(s): E03.8 - Other specified hypothyroidism (6) GERD without esophagitis: Status: Acute (7) Seronegative rheumatoid arthritis: Status: Acute (8) COPD (chronic obstructive pulmonary disease): Status: Acute Qualifiers: COPD type: COPD with acute exacerbation Qualified Code(s): J44.1 - Chronic obstructive pulmonary disease with (acute) exacerbation (9) Hypomagnesemia: Status: Acute (10) Sepsis: Status: Acute (11) Acute respiratory failure with hypoxia: Status: Acute (12) Right lower lobe pneumonia: Status: Acute Qualifiers: Pneumonia type: due to unspecified organism Qualified Code(s): J18.9 - Pneumonia, unspecified organism Additional A&P Information Hyponatremia, sodium 132 Hypokalemia and hypomagnesemia This most likely secondary to use of diuretics such as Lasix Potassium and magnesium repletion Prolonged QTC Grade 1 diastolic dysfunction Preserved ejection fraction currently clinically she is not fluid overloaded I would hold Lasix for now However BNP is 800 Pleuritic chest pain right-sided Likely from pleural effusion, parapneumonic effusion, will treat Hold disease modifying agents for now Full code Cardiac diet DVT prophylaxis Lovenox Attestations Medical Necessity Statement*: Patient requires hospitalization for persistent right-sided chest pain, right lower lobe pneumonia, concerning for pleural adhesions, possible parapneumonic effusion, requiring VATS or bronchoscopic evaluation Coding Level of Care Code Acute 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
[2020-09-09 16:53] LABS: Glucose Point of Care 135 mg/dL (70-110)
[2020-09-09] MEDS: ipratropium-albuterol 3 mL Neb INHALATION (19:47)
[2020-09-09 21:30] LABS: Glucose Point of Care 111 mg/dL (70-110)
[2020-09-10] VITALS (13 sets, daily range): BP systolic 117–135; BP diastolic 64–77; PULSE 78–87; RESP 12–20; TEMP 36.7–37.3; O2SAT 91–97
[2020-09-10] MEDS: HYDROmorphone 1 mg/mL INJ 1 mL 2 MG IVP ×5 (02:16→21:07)
[2020-09-10] MEDS: aztreonam 2,000 MG in sodium chloride 0.9% (plus) 100 ML 200 MG IV ×3 (05:49→22:36)
[2020-09-10 05:50] LABS: Basophils % 0.3 %; Eosinophils # 0.4 10^3/uL (0.0-0.8); Eosinophils % 2.8 %; Hematocrit 31.8 % (37.0-47.0); Hemoglobin 9.8 g/dL (11.5-15.3); Lymphocytes # 1.6 10^3/uL (0.8-4.8); Lymphocytes % 11.2 %; Mean Corpuscular HGB Conc 30.8 g/dL (30.0-36.0); Mean Corpuscular Hemoglobin 29.3 pg (28.0-34.0); Mean Corpuscular Volume 94.9 fL (81-99); Mean Platelet Volume 10.8 fL (7.4-10.4); Monocytes # 2.1 10^3/uL (0.2-0.9); Monocytes % 14.6 %; Neutrophils # 9.39 10^3/uL (1.8-7.7); Nucleated Red Blood Cells % 0 %; Platelet Count 348 10^3/cmm (130-400); Red Blood Count 3.35 10^6/uL (4.1-5.3); Red Cell Distribution Width 15.4 % (12.1-15.1); White Blood Count 14.2 10^3/uL (4.0-10.0)
[2020-09-10 06:08] LABS: INR 0.93 (0.8-1.2)
[2020-09-10 06:23] LABS: Slide Review Slide Review Perform
[2020-09-10 06:30] LABS: NT Pro B Type Natriuretic Pept 157 pg/mL (0-125); Procalcitonin 0.11 ng/mL (0-0.5)
[2020-09-10 06:42] LABS: Alanine Aminotransferase 6 U/L (0-33); Albumin Level 2.8 g/dL (3.5-5.2); Alkaline Phosphatase 97 IU/L (35-105); Anion Gap 13.2 (5-19); Aspartate Amino Transferase 13 U/L (0-32); Blood Urea Nitrogen 6 mg/dL (6-20); C Reactive Protein 163.3 mg/L (0.0-4.9); Calcium 9.1 mg/dL (8.5-10.5); Carbon Dioxide 30 mmol/L (22-29); Chloride 95 mmol/L (98-107); Globulin 4.2 g/dL (1.3-4.6); Glomerular Filtration Rate 103.4 mL/min (90-130); Glucose 103 mg/dL (65-115); Magnesium 1.7 mg/dL (1.7-2.3); Osmolality Calculated 278 mOsm/kg (285-295); Phosphorus 3.7 mg/dL (2.5-4.5); Potassium 3.2 mmol/L (3.5-5.1); Sodium 135 mmol/L (136-145); Total Bilirubin 0.2 mg/dL (0.15-1.2)
[2020-09-10 07:27] LABS: Glucose Point of Care 123 mg/dL (70-110)
--- NOTE | 2020-09-10 09:00 | NMR_ITS ---
PROCEDURE INFORMATION: Exam: [place] Lung Ventilation and Perfusion Imaging Exam date and time: 09/10/2020 1:15 PM Age: 54 years old Clinical indication: Pain and abnormal findings; Abnormal diagnostic tests; Elevated d-dimer; Dyspnea and shortness of breath; Right-sided chest pain; Patient HX: History of dvt; Additional info: R/O pe, TECHNIQUE: Imaging protocol: Nuclear pulmonary ventilation with aerosol or gas was performed followed by perfusion. Views: Ventilation acquired with multiple projections. Perfusion acquired with multiple projections. Radiopharmaceutical: 33 mCi DTPA Aersol (Tc-99m DTPA), Inhalation. 4.7 mCi Tc-99m MAA, IV. COMPARISON: CR XR chest 1V portable [id number] 09/08/2020 5:44 AM FINDINGS: Ventilation: There is central deposition of radiotracer consistent with emphysema. There is decreased ventilation to the mid and inferior right lung. Perfusion: There is decreased perfusion to the mid inferior right lung. There are no VQ mismatches. There are matched ventilation and perfusion defects in the right lung. There is corresponding radiographic abnormality consistent with triple match. KS/KS pul vent and perfus* [id number] IMPRESSION: Findings are consistent with intermediate probability for pulmonary artery embolus.
[2020-09-10] MEDS: enoxaparin 40 mg/0.4 mL Syringe SUBCUT (09:17)
[2020-09-10] MEDS: cloNIDine 0.1 mg Tablet PO (09:18)
[2020-09-10] MEDS: fluoxetine 20 mg Capsule PO (09:18)
[2020-09-10] MEDS: potassium chloride ER 20 mEq Tablet 40 MEQ PO (09:18)
[2020-09-10] MEDS: sennosides-docusate Tablet 1 TAB PO (09:18)
[2020-09-10] MEDS: vancomycin 1,250 MG/250 ML PIGGYBACK 250 MG IV ×2 (09:18→21:07)
[2020-09-10] MEDS: atorvastatin 40 mg Tablet PO (09:18)
[2020-09-10] MEDS: levothyroxine 88 mcg Tablet PO (09:19)
[2020-09-10] MEDS: carvedilol 25 mg Tablet PO ×2 (09:19→17:12)
[2020-09-10] MEDS: dilTIAZem 30 mg Tablet PO ×3 (09:19→21:07)
[2020-09-10] MEDS: pantoprazole DR 40 mg Tablet PO (09:19)
[2020-09-10 11:30] LABS: Glucose Point of Care 116 mg/dL (70-110)
--- NOTE | 2020-09-10 11:39 | PC.SOCIAL ---
IMM Updated Updated pt on Pg 2 IMM. No questions voiced. Provided pt a copy. Signed, dated, & timed copy in chart.
--- NOTE | 2020-09-10 12:24 | PM.PN ---
Subjective Subjective: Interval history: Patient was examined this morning, she tells me that she is overall doing better, however when she gets up and exerts herself, she is a pulling and tugging sensation and sharp pain sensation in the right part of her chest, especially when she takes a deep breath in, no nausea, vomiting, no palpitations, Vitals/I&O/Wt Last Vital Signs Temp 98.0 F 09/10/20 08:00 Pulse 87 09/10/20 08:00 Resp 16 09/10/20 11:36 BP 130/70 09/10/20 09:18 Pulse Ox 94 09/10/20 11:36 09/09/20 09/10/20 09/10/20 22:59 06:59 14:59 Intake Total 1230 / 1720 240 / 240 Output Total 1000 / 1800 1250 / 3050 1000 / 1000 Balance 230 / -80 -1250 / -1330 -760 / -760 Physical Exam Const: COMMON NORMALS: no acute distress and patient oriented x3 HENMT: COMMON NORMALS: normocephalic HEAD & SCALP: normocephalic Neck/C-Spine: COMMON NORMALS: no JVD Resp: COMMON NORMALS: normal respiratory effort, No retractions and No use of accessory muscles AUSCULTATION: breath sounds absent on the right Cardio: COMMON NORMALS: no JVD, regular rate, regular rhythm, S1 normal heart sound present and S2 normal heart sound present RATE: regular rate RHYTHM: regular rhythm HEART SOUNDS: S1 normal heart sound present and S2 normal heart sound present GI: COMMON NORMALS: Normal to inspection, nondistended, normoactive bowel sounds present, Soft to palpation, non-tender, No hepatosplenomegaly present, no masses and no bruits PALPATION: Yes Soft to palpation and Yes No hepatosplenomegaly present Extremity: COMMON NORMALS: capillary refill normal, no clubbing, cyanosis or edema, no calf tenderness and no pedal edema Neuro: COMMON NORMALS: patient oriented x3 Psych: COMMON NORMALS: mental status grossly normal Data : 09/10/20 05:15 09/10/20 05:15 Micro: Microbiology 09/02/20 21:31 Blood Culture - Final Blood Micrococcus and related genera A&P Assessment and plan (1) Acute respiratory failure with hypoxia and hypercapnia: -Secondary to right lower lobe pneumonia with effusion, soft tissue mass, possible pleural adhesions -Review of the CT scan shows a right lower lobe density, with parapneumonic effusion extending to the anterior thorax, that is concerning -There is still a question if this is a pneumonia versus a soft tissue mass with associated hemothorax -In addition there is still question if the solid density represents an aspergilloma or tuberculosis focus -In addition patient's D-dimer is elevated, CT angiogram of the chest was ordered last night, but not performed as of yet -Patient is immunocompromise as she has a history of seronegative rheumatoid arthritis, is on abatacept, prednisone, methotrexate -Leukocytosis 14.2 down to the 5 L nasal cannula, clinically improving, continues to have pain on the right chest side -Strandy opacities and some consolidation is seen superimposed over the pleural effusion and right hemidiaphragm compatible with right basilar pneumonia. There is a rounded mass effect seen in the right middle lobe anteriorly measuring 4.2 cm AP dimension by 4.5 cm craniocaudal dimension approximately 5.3 cm transverse dimension. This may represent rounded pneumonia although a underlying soft tissue mass cannot be excluded. No mass was seen on a chest radiograph dated 10/15/2019, rounded area consolidation is seen in the right lung base in a chest today. -LV systolic function is normal with EF of 55 to 60%. Diastolic function is normal. There is trace mitral regurgitation. There is mild to moderate aortic regurgitation. Mild tricuspid regurgitation. Compared to prior echocardiogram from 05/04/2018, no significant changes are noted. -Dr. Garcia advised that there is no significant fluid to drain PLAN: -Currently on MedSurg -Currently on 4 L -High flow to decrease work of breathing, BiPAP as needed -On broad-spectrum antibiotics vancomycin, aztreonam, awaiting MRSA of the nares to de-escalate vancomycin -Continues have pain on the right side, if this persists she might require CT surgery evaluation for thoracotomy and decortication or navigational bronchoscopy, possible pleural adhesions or empyema as etiology or soft tissue mass, likely will require CT surgery evaluation and or bronchoscopy -Awaiting ventilation/perfusion scan given elevated D-dimer -Covid negative, AFB smears x3 not required -tb quantiferon negaTIVE -Galactomannan, histoplasma pending -Off isolation -CT of the chest does show a soft tissue mass of the right lower lobe, is a chronic smoker, will require outpatient follow-up -Full code -Lovenox for DVT prophylaxis -Plavix on hold Plan for today, continue open ambulation, continue antibiotics, still waiting a ventilation/perfusion scan, elevated D-dimer Status: Acute (2) Immunocompromised: Status: Acute (3) Hypokalemia: Status: Acute (4) High risk medication use: Status: Acute (5) Hypothyroidism: Status: Acute Qualifiers: Hypothyroidism type: other Qualified Code(s): E03.8 - Other specified hypothyroidism (6) GERD without esophagitis: Status: Acute (7) Seronegative rheumatoid arthritis: Status: Acute (8) COPD (chronic obstructive pulmonary disease): Status: Acute Qualifiers: COPD type: COPD with acute exacerbation Qualified Code(s): J44.1 - Chronic obstructive pulmonary disease with (acute) exacerbation (9) Hypomagnesemia: Status: Acute (10) Sepsis: Status: Acute (11) Acute respiratory failure with hypoxia: Status: Acute (12) Right lower lobe pneumonia: Status: Acute Qualifiers: Pneumonia type: due to unspecified organism Qualified Code(s): J18.9 - Pneumonia, unspecified organism Additional A&P Information Hyponatremia, sodium 135 Hypokalemia and hypomagnesemia This most likely secondary to use of diuretics such as Lasix Potassium and magnesium repletion Prolonged QTC Grade 1 diastolic dysfunction Preserved ejection fraction currently clinically she is not fluid overloaded I would hold Lasix for now However BNP is 800 Pleuritic chest pain right-sided Likely from pleural effusion, parapneumonic effusion, will treat Hold disease modifying agents for now Full code Cardiac diet DVT prophylaxis Lovenox Attestations Medical Necessity Statement*: Patient requires hospitalization for right lower lobe pneumonia, continued right-sided chest pain, concerning for empyema and/or pleural adhesions, requiring bronchoscopy and/or VATS procedure Coding Level of Care Code Acute Flatbed Stitcher for [facility] [place] [facility] Diagnoses Acute respiratory failure with hypoxia and hypercapnia J96.01; J96.02 Immunocompromised D84.9 Hypokalemia E87.6 High risk medication use Z79.899 Hypothyroidism E03.8 Hypothyroidism type: other GERD without esophagitis K21.9 Seronegative rheumatoid arthritis M06.00 COPD (chronic obstructive pulmonary disease) J44.1 COPD type: COPD with acute exacerbation Hypomagnesemia E83.42 Sepsis A41.9 Acute respiratory failure with hypoxia J96.01 Right lower lobe pneumonia J18.9 Pneumonia type: due to unspecified organism
--- NOTE | 2020-09-10 13:03 | XRR_ITS ---
PROCEDURE INFORMATION: Exam: XR Chest, 1 View Exam date and time: 09/10/2020 1:11 PM Age: 54 years old Clinical indication: Shortness of breath; Additional info: SOB TECHNIQUE: Imaging protocol: XR of the chest Views: 1 view. COMPARISON: CR XR chest 1V portable [id number] 09/08/2020 5:44 AM FINDINGS: Lungs: There is right lung base consolidation. The left lung is clear. Pleural space: There is a right pleural effusion. No pneumothorax. Heart/Mediastinum: Unremarkable. No cardiomegaly. Bones/joints: Unremarkable. XR/XR chest 1V portable [id number] IMPRESSION: No significant change.
[2020-09-10] MEDS: benzonatate 100 mg Capsule PO (17:12)
[2020-09-10 17:27] LABS: Glucose Point of Care 123 mg/dL (70-110)
--- NOTE | 2020-09-10 17:51 | PC.OT ---
OT tx attempted 2x today. Pt in restroom on first attempt and did not want any assist from therapist, and off the floor to lung scan on second attempt. Will attempt to resume OT services again tomorrow.
[2020-09-10 21:04] LABS: Glucose Point of Care 143 mg/dL (70-110)
[2020-09-11] VITALS (18 sets, daily range): BP systolic 100–162; BP diastolic 69–89; PULSE 70–87; RESP 17–22; TEMP 36.4–37.6; O2SAT 93–98
[2020-09-11] MEDS: benzonatate 100 mg Capsule PO ×3 (01:05→21:27)
[2020-09-11] MEDS: HYDROmorphone 1 mg/mL INJ 1 mL 2 MG IVP ×2 (01:05→05:09)
[2020-09-11 04:53] LABS: Basophils # 0.1 10^3/uL (0.0-0.1); Basophils % 0.4 %; Eosinophils # 0.2 10^3/uL (0.0-0.8); Eosinophils % 1.6 %; Hematocrit 31.1 % (37.0-47.0); Hemoglobin 9.8 g/dL (11.5-15.3); Lymphocytes % 8.3 %; Mean Corpuscular HGB Conc 31.5 g/dL (30.0-36.0); Mean Corpuscular Hemoglobin 29.6 pg (28.0-34.0); Mean Platelet Volume 10.5 fL (7.4-10.4); Monocytes # 1.1 10^3/uL (0.2-0.9); Monocytes % 9.2 %; Neutrophils # 8.87 10^3/uL (1.8-7.7); Neutrophils % 71.9 %; Nucleated Red Blood Cells % 0 %; Platelet Count 299 10^3/cmm (130-400); Red Blood Count 3.31 10^6/uL (4.1-5.3); Red Cell Distribution Width 15.5 % (12.1-15.1); White Blood Count 12.4 10^3/uL (4.0-10.0)
[2020-09-11 05:13] LABS: INR 0.92 (0.8-1.2)
[2020-09-11] MEDS: aztreonam 2,000 MG in sodium chloride 0.9% (plus) 100 ML 200 MG IV ×2 (05:13→22:14)
[2020-09-11 05:23] LABS: NT Pro B Type Natriuretic Pept 218 pg/mL (0-125); Procalcitonin 0.14 ng/mL (0-0.5)
[2020-09-11 05:35] LABS: Alanine Aminotransferase 8 U/L (0-33); Albumin Level 2.9 g/dL (3.5-5.2); Alkaline Phosphatase 90 IU/L (35-105); Anion Gap 14.2 (5-19); Aspartate Amino Transferase 13 U/L (0-32); Blood Urea Nitrogen 6 mg/dL (6-20); C Reactive Protein 130.9 mg/L (0.0-4.9); Calcium 8.9 mg/dL (8.5-10.5); Carbon Dioxide 30 mmol/L (22-29); Chloride 93 mmol/L (98-107); Globulin 4.1 g/dL (1.3-4.6); Glomerular Filtration Rate 127.6 mL/min (90-130); Glucose 95 mg/dL (65-115); Magnesium 1.7 mg/dL (1.7-2.3); Osmolality Calculated 275 mOsm/kg (285-295); Phosphorus 3.5 mg/dL (2.5-4.5); Potassium 3.2 mmol/L (3.5-5.1); Sodium 134 mmol/L (136-145); Total Bilirubin 0.2 mg/dL (0.15-1.2)
[2020-09-11 05:47] LABS: Slide Review Slide Review Perform
[2020-09-11 06:58] LABS: Glucose Point of Care 95 mg/dL (70-110)
[2020-09-11 07:32] LABS: Vancomycin Trough 16.6 ug/mL (10-15)
[2020-09-11] MEDS: ipratropium-albuterol 3 mL Neb INHALATION ×2 (09:41→15:05)
[2020-09-11] MEDS: vancomycin 1,250 MG/250 ML PIGGYBACK 250 MG IV (10:20)
[2020-09-11] MEDS: dilTIAZem 30 mg Tablet PO ×3 (10:20→22:14)
[2020-09-11] MEDS: potassium chloride ER 20 mEq Tablet 40 MEQ PO (10:21)
[2020-09-11] MEDS: carvedilol 25 mg Tablet PO ×2 (10:21→18:42)
[2020-09-11] MEDS: cloNIDine 0.1 mg Tablet PO (10:21)
[2020-09-11] MEDS: sennosides-docusate Tablet 1 TAB PO (10:21)
[2020-09-11] MEDS: levothyroxine 88 mcg Tablet PO (10:21)
[2020-09-11] MEDS: HYDROmorphone 1 mg/mL INJ 1 mL IVP ×3 (10:22→21:31)
[2020-09-11] MEDS: fluoxetine 20 mg Capsule PO (10:22)
[2020-09-11] MEDS: pantoprazole DR 40 mg Tablet PO (10:22)
[2020-09-11] MEDS: atorvastatin 40 mg Tablet PO (10:22)
[2020-09-11 11:23] LABS: Glucose Point of Care 88 mg/dL (70-110)
--- NOTE | 2020-09-11 12:18 | USCV_ITS ---
Angie Naranjo Age: 54 Gender: F : 1965 Exam Date: 09/11/2020 16:21 Ordering Phys: Santo Ron MD Technologist: Kamini Bejarano Exam Location: [facility] – [place]_ Indication: R/O DVT PROCEDURES: Venous duplex imaging was performed in bilateral lower extremities. The following venous structures were evaluated: common femoral vein, profunda vein, proximal portion of the greater saphenous vein, superficial femoral vein, and the popliteal vein. In addition, the posterior tibial and peroneal trunk were evaluated. Serial compression, augmentation maneuvers, and spectral Doppler flow evaluation were performed. FINDINGS: Normal 2-D Doppler and augmentation and compressibility throughout the lower extremity venous structures. Additional imaging through the proximal calf veins also reveals no thrombus. Limited evaluation of the greater saphenous vein is patent with no thrombus. CONCLUSIONS No DVT bilateral lower extremities. Dr. Margoth Mensah DO (Electronically Signed) Final Date: 12 September 2020 08:13 S
--- NOTE | 2020-09-11 13:09 | PM.PN ---
Subjective Subjective: Interval history: Patient was examined this morning, she is overall doing better, no fevers, chills, nausea, vomiting is a bit sleepy this morning, she continues to have pain on the right side of her chest, some shortness of breath with exertion, her chest x-ray shows persistent but improving hazy infiltrates in the right lower lobe Vitals/I&O/Wt Last Vital Signs Temp 98.2 F 09/11/20 08:00 Pulse 84 09/11/20 09:49 Resp 18 09/11/20 10:22 BP 162/89 09/11/20 10:21 Pulse Ox 96 09/11/20 10:22 09/10/20 09/11/20 09/11/20 22:59 06:59 14:59 Intake Total 850 / 1680 100 / 1780 Output Total 600 / 1600 500 / 2100 Balance 250 / 80 -400 / -320 Physical Exam Const: COMMON NORMALS: no acute distress and patient oriented x3 HENMT: COMMON NORMALS: normocephalic HEAD & SCALP: normocephalic Neck/C-Spine: COMMON NORMALS: no JVD Resp: COMMON NORMALS: normal respiratory effort, No retractions and No use of accessory muscles AUSCULTATION: wheezes right lower Cardio: COMMON NORMALS: no JVD, regular rate, regular rhythm, S1 normal heart sound present and S2 normal heart sound present RATE: regular rate RHYTHM: regular rhythm HEART SOUNDS: S1 normal heart sound present and S2 normal heart sound present GI: COMMON NORMALS: Normal to inspection, nondistended, normoactive bowel sounds present, Soft to palpation, non-tender, No hepatosplenomegaly present, no masses and no bruits PALPATION: Yes Soft to palpation and Yes No hepatosplenomegaly present Extremity: COMMON NORMALS: capillary refill normal, no clubbing, cyanosis or edema, no calf tenderness and no pedal edema Neuro: COMMON NORMALS: patient oriented x3 Psych: COMMON NORMALS: mental status grossly normal Data : 09/11/20 04:39 09/11/20 04:39 Micro: Microbiology 09/06/20 10:20 Blood Culture - Final Blood NO GROWTH AFTER 5 DAYS 09/06/20 10:25 Blood Culture - Final Blood NO GROWTH AFTER 5 DAYS A&P Assessment and plan (1) Acute respiratory failure with hypoxia and hypercapnia: -Secondary to right lower lobe pneumonia with effusion, soft tissue mass, possible pleural adhesions, postobstructive pneumonia -Review of the CT scan shows a right lower lobe density, with parapneumonic effusion extending to the anterior thorax, that is concerning -There is still a question if this is a pneumonia versus a soft tissue mass with associated hemothorax -In addition there is still question if the solid density represents an aspergilloma or tuberculosis focus -In addition patient's D-dimer is elevated, CT angiogram of the chest was ordered last night, but not performed as of yet -Patient is immunocompromise as she has a history of seronegative rheumatoid arthritis, is on abatacept, prednisone, methotrexate -Leukocytosis 14.2 down to the 5 L nasal cannula, clinically improving, continues to have pain on the right chest side -Strandy opacities and some consolidation is seen superimposed over the pleural effusion and right hemidiaphragm compatible with right basilar pneumonia. There is a rounded mass effect seen in the right middle lobe anteriorly measuring 4.2 cm AP dimension by 4.5 cm craniocaudal dimension approximately 5.3 cm transverse dimension. This may represent rounded pneumonia although a underlying soft tissue mass cannot be excluded. No mass was seen on a chest radiograph dated 10/15/2019, rounded area consolidation is seen in the right lung base in a chest today. -LV systolic function is normal with EF of 55 to 60%. Diastolic function is normal. There is trace mitral regurgitation. There is mild to moderate aortic regurgitation. Mild tricuspid regurgitation. Compared to prior echocardiogram from 05/04/2018, no significant changes are noted. -Dr. Garcia advised that there is no significant fluid to drain PLAN: -Currently on MedSurg -Currently on 4 L -High flow to decrease work of breathing, BiPAP as needed -On broad-spectrum antibiotics vancomycin, aztreonam, stop vancomycin, continue aztreonam -Continues have pain on the right side, if this persists she might require CT surgery evaluation for thoracotomy and decortication or navigational bronchoscopy, possible pleural adhesions or empyema as etiology or soft tissue mass, likely will require CT surgery evaluation and or bronchoscopy -Awaiting ventilation/perfusion scan given elevated D-dimer -Covid negative, AFB smears x3 not required -tb quantiferon negaTIVE -Galactomannan, histoplasma pending -Off isolation -CT of the chest does show a soft tissue mass of the right lower lobe, is a chronic smoker, will require outpatient follow-up -Ventilation/perfusion scan shows intermediate probability for pulmonary emboli, will order bilateral extremity ultrasounds, patient has a contrast allergy so cannot do a CT angiogram -Full code -Lovenox for DVT prophylaxis -Plavix on hold Plan for today, continue open ambulation, continue antibiotics, plan for n.p.o. midnight, bronchoscopy tomorrow morning Status: Acute (2) Immunocompromised: Status: Acute (3) Hypokalemia: Status: Acute (4) High risk medication use: Status: Acute (5) Hypothyroidism: Status: Acute Qualifiers: Hypothyroidism type: other Qualified Code(s): E03.8 - Other specified hypothyroidism (6) GERD without esophagitis: Status: Acute (7) Seronegative rheumatoid arthritis: Status: Acute (8) COPD (chronic obstructive pulmonary disease): Status: Acute Qualifiers: COPD type: COPD with acute exacerbation Qualified Code(s): J44.1 - Chronic obstructive pulmonary disease with (acute) exacerbation (9) Hypomagnesemia: Status: Acute (10) Sepsis: Status: Acute (11) Acute respiratory failure with hypoxia: Status: Acute (12) Right lower lobe pneumonia: Status: Acute Qualifiers: Pneumonia type: due to unspecified organism Qualified Code(s): J18.9 - Pneumonia, unspecified organism Additional A&P Information Hyponatremia, sodium 134 Hypokalemia and hypomagnesemia This most likely secondary to use of diuretics such as Lasix Potassium and magnesium repletion Prolonged QTC Grade 1 diastolic dysfunction Preserved ejection fraction currently clinically she is not fluid overloaded I would hold Lasix for now However BNP is 800 Pleuritic chest pain right-sided Likely from pleural effusion, parapneumonic effusion, possible postobstructive pneumonia, will require bronchoscopy Hold disease modifying agents for now Full code Cardiac diet DVT prophylaxis Lovenox Attestations Medical Necessity Statement*: Patient requires hospitalization for respiratory failure secondary to pneumonia, concern for postobstructive pneumonia versus empyema, requiring navigational bronchoscopy with EBUS Coding Level of Care Code 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
[2020-09-11 18:08] LABS: Glucose Point of Care 160 mg/dL (70-110)
[2020-09-11 20:17] LABS: Glucose Point of Care 103 mg/dL (70-110)
--- NOTE | 2020-09-11 22:11 | PM.PN ---
Subjective Subjective: Interval history: overall clinically better Currently saturating 95% on 4 L Still complaining of right-sided chest pain Bedside ultrasound revealed significant right pleural effusion with some fibrinous material-we will plan for 14 [place] chest tube placement tomorrow Vitals/I&O/Wt Last Vital Signs Temp 99.7 F H 09/11/20 20:01 Pulse 79 09/11/20 20:01 Resp 22 H 09/11/20 21:31 BP 132/78 09/11/20 20:01 Pulse Ox 95 09/11/20 20:01 09/11/20 09/11/20 09/11/20 06:59 14:59 22:59 Intake Total 100 / 1780 450 / 450 Output Total 500 / 2100 1300 / 1300 Balance -400 / -320 -850 / -850 Physical Exam Narrative: EXAM NARRATIVE: General: alert, NAD Pain 4/10 on right side chest HEENT: conj clear, EOMI, PERRL, mmm, Neck: supple, no meningismus Heme: no cervical LAP Pulmonary: Reduced breath sounds right lower lobe Cardiovascular: rrr, nl s1s2, no mrg Abdomen: soft, nt, nd, no r/g, bs+ Extremities: pulses +, no edema, no c/c : no CVA tenderness Skin: intact, no rash MSK: no back or neck pain Neurologic: grossly intact Data : 09/11/20 04:39 09/11/20 04:39 Micro: Microbiology 09/06/20 10:20 Blood Culture - Final Blood NO GROWTH AFTER 5 DAYS 09/06/20 10:25 Blood Culture - Final Blood NO GROWTH AFTER 5 DAYS A&P Assessment and plan (1) Acute respiratory failure with hypoxia and hypercapnia: Status: Acute (2) Right lower lobe pneumonia: Status: Acute Qualifiers: Pneumonia type: due to unspecified organism Qualified Code(s): J18.9 - Pneumonia, unspecified organism (3) Immunocompromised: Status: Acute (4) Acute hypercapnic respiratory failure: Status: Acute (5) Smoking: Status: Acute (6) COPD (chronic obstructive pulmonary disease): Status: Acute Qualifiers: COPD type: COPD with acute exacerbation Qualified Code(s): J44.1 - Chronic obstructive pulmonary disease with (acute) exacerbation (7) Pleural effusion on right: Status: Acute (8) Aortic regurgitation: Status: Acute Qualifiers: Cardiac valve disease etiology: etiology unspecified Qualified Code(s): I35.1 - Nonrheumatic aortic (valve) insufficiency (9) Seronegative rheumatoid arthritis: Status: Acute #Acute hypercapnic hypoxic respiratory failure secondary to right lower lobe pneumonia #However responding to antibiotics for RLL pneumonia #low threshold for fungal infection due to immunocompromised status - but pt responded clinically to antibx #Patient likely immunocompromised as she was on abatacept, methotrexate, prednisone for her rheumatoid arthritis #Held the Plavix (patient states she was given for ?? aortic regurgitation) for possible intervention (either bronchoscopy/thoracotomy if patient does not improve) #COPD and chronic smoker - Chest CT 09/02/2020:right lower lobe density, with parapneumonic effusion extending to the anterior thorax, that is concerning -There is still a question if this is a pneumonia versus a soft tissue mass with associated hemothorax. -In addition there is still question if the solid density represents an aspergillosis/Nocardia or tuberculosis focus - Follow-up evaluation with a repeat CT examination of the chest is suggested when the patient's acute symptoms have resolved. - currently on aztreonam ; saturating well on 4 L nasal cannula and not in acute respiratory distress and reports improvement in her shortness of breath - DC antibx after 7 days treatment -Improving WBC and no more fever spikes -In addition patient's D-dimer is elevated, -Off COVID-19 and TB precautions; Covid rapid antigen, PCR and TB QuantiFERON: Negative - Grade 1 diastolic dysfunction: Preserved EF; currently clinically she is not fluid overloaded ; BNP is 800 #Complicated right pleural effusion -likely parapneumonic due to ongoing infection versus inflammatory due to underlying seronegative rheumatoid arthritis vs possible ?? Underlying malignancy as patient is a chronic smoker - Chest ultrasound 08/28/2020: There is a moderate size right pleural effusion with internal debris. Internal complexity may represent infection and/or hemorrhagic products. -Bedside ultrasound on 09/04/2020 of right chest showed complicated mild effusion which is difficult to tap and mirror image artifact suggestive of hepatization phase of right lower lobe consolidation - Bedside ultrasound 09/11/2019: Showed moderate to significant right-sided pleural effusion with fibrinous strands attached to the diaphragmatic surface = Plavix held to well09/03/2020 - currently on aztreonam and patient is clinically improving with decreasing oxygen requirements and subjective improvement of respiratory symptoms but still complaining of chest pain -patient has persistent right chest pain , quite possible from pleural effusion and adhesions or nonresolving pneumonia - -effusion seems to be moderate to significant and with very good window I would place a 14 [place] catheter and give some TPA/dornase to lyse the adhesions and see if her pain gets better. 09/04/20: bedside Ultrasound 09/11/2020:Bedside ultrasound: #CT chest imaging suspicious for underlying soft tissue mass over RLL consolidation in a chronic smoker -We will treat superimposing pneumonia first and repeat imaging still persist with masslike lesion then we will plan for navigational bronchoscopy guided TBB and EBUS guided FNA C to rule out malignancy #COPD and chronic smoker -Counseled to quit smoking -patient verbalized understanding of the complications of smoking like worsening emphysema/lung cancer/other cancer/coronary artery disease/stroke/peripheral arterial disease and agreed to quit -No PFTs available and patient is on Trelegy and albuterol as needed -We will follow-up in pulmonary clinic and order PFTs as outpatient - Recommended to stay up-to-date with flu and Pneumovax -Continue nebulization every 6 hr as needed for shortness of breath/wheezing while in hospital Medical condition, labs, investigations, medications, counseling regarding medication compliance, side effects, importance of follow-up appointments, smoking-its adverse effects and importance of cessation and plan of care-everything explained in detail to the patient. Patient verbalized understanding and agreed with the plan of care. Attestations Medical Necessity Statement*: Right lower lobe pneumonia with right pleural effusion and pleuritic chest pain requiring 4 L nasal cannula Time Spent in Patient Care: Greater than 35 minutes (>than 50% of time spent in counselling and/or direct pt care on unit). 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 Fwd Diagnoses Acute respiratory failure with hypoxia and hypercapnia J96.01; J96.02 Right lower lobe pneumonia J18.9 Pneumonia type: due to unspecified organism Immunocompromised D84.9 Acute hypercapnic respiratory failure J96.02 Smoking F17.200 COPD (chronic obstructive pulmonary disease) J44.1 COPD type: COPD with acute exacerbation Pleural effusion on right J90 Aortic regurgitation I35.1 Cardiac valve disease etiology: etiology unspecified Seronegative rheumatoid arthritis M06.00
[2020-09-12] VITALS (19 sets, daily range): BP systolic 109–145; BP diastolic 64–80; PULSE 69–80; RESP 16–22; TEMP 36–36.7; O2SAT 92–97
[2020-09-12] MEDS: HYDROmorphone 1 mg/mL INJ 1 mL IVP ×6 (01:56→22:25)
[2020-09-12 05:25] LABS: Basophils % 0.2 %; Eosinophils # 0.2 10^3/uL (0.0-0.8); Eosinophils % 1.7 %; Hematocrit 30.3 % (37.0-47.0); Hemoglobin 9.4 g/dL (11.5-15.3); Lymphocytes # 1.4 10^3/uL (0.8-4.8); Lymphocytes % 14.5 %; Mean Corpuscular Hemoglobin 29.2 pg (28.0-34.0); Mean Corpuscular Volume 94.1 fL (81-99); Mean Platelet Volume 11.1 fL (7.4-10.4); Monocytes # 1.3 10^3/uL (0.2-0.9); Monocytes % 13.4 %; Neutrophils % 68.1 %; Nucleated Red Blood Cells % 0 %; Platelet Count 223 10^3/cmm (130-400); Red Blood Count 3.22 10^6/uL (4.1-5.3); Red Cell Distribution Width 15.4 % (12.1-15.1); White Blood Count 9.4 10^3/uL (4.0-10.0)
[2020-09-12 05:41] LABS: INR 0.94 (0.8-1.2)
[2020-09-12 05:51] LABS: Alanine Aminotransferase 7 U/L (0-33); Albumin Level 2.7 g/dL (3.5-5.2); Alkaline Phosphatase 88 IU/L (35-105); Anion Gap 11.1 (5-19); Aspartate Amino Transferase 13 U/L (0-32); Blood Urea Nitrogen 4 mg/dL (6-20); C Reactive Protein 109.8 mg/L (0.0-4.9); Calcium 8.7 mg/dL (8.5-10.5); Carbon Dioxide 33 mmol/L (22-29); Chloride 94 mmol/L (98-107); Globulin 4.4 g/dL (1.3-4.6); Glomerular Filtration Rate 127.6 mL/min (90-130); Glucose 81 mg/dL (65-115); Magnesium 1.8 mg/dL (1.7-2.3); Osmolality Calculated 276 mOsm/kg (285-295); Phosphorus 3.5 mg/dL (2.5-4.5); Potassium 3.1 mmol/L (3.5-5.1); Sodium 135 mmol/L (136-145); Total Bilirubin 0.2 mg/dL (0.15-1.2); Total Protein 7.1 g/dL (6.6-8.7)
[2020-09-12] MEDS: aztreonam 2,000 MG in sodium chloride 0.9% (plus) 100 ML 200 MG IV ×3 (05:52→21:14)
[2020-09-12 06:03] LABS: NT Pro B Type Natriuretic Pept 224 pg/mL (0-125); Procalcitonin 0.12 ng/mL (0-0.5)
[2020-09-12] MEDS: benzonatate 100 mg Capsule PO (06:32)
[2020-09-12 07:01] LABS: Glucose Point of Care 95 mg/dL (70-110)
[2020-09-12] MEDS: ipratropium-albuterol 3 mL Neb INHALATION ×2 (07:51→15:59)
[2020-09-12] MEDS: acetaminophen 500 mg Tablet PO (09:35)
[2020-09-12] MEDS: pantoprazole DR 40 mg Tablet PO (09:59)
--- NOTE | 2020-09-12 09:59 | PC.SOCIAL ---
IMM Update Pg. 2 of IMM updated and reviewed with patient who verbalized understanding. Copy provided.
[2020-09-12] MEDS: sennosides-docusate Tablet 1 TAB PO (10:00)
[2020-09-12] MEDS: fluoxetine 20 mg Capsule PO (10:00)
[2020-09-12] MEDS: dilTIAZem 30 mg Tablet PO ×3 (10:01→21:08)
[2020-09-12] MEDS: levothyroxine 88 mcg Tablet PO (10:02)
[2020-09-12] MEDS: carvedilol 25 mg Tablet PO ×2 (10:02→18:15)
[2020-09-12] MEDS: atorvastatin 40 mg Tablet PO (10:03)
[2020-09-12] MEDS: cloNIDine 0.1 mg Tablet PO (10:04)
[2020-09-12] MEDS: potassium chloride ER 20 mEq Tablet 40 MEQ PO (10:06)
[2020-09-12 11:10] LABS: Glucose Point of Care 101 mg/dL (70-110)
--- NOTE | 2020-09-12 11:57 | PM.PN ---
Subjective Subjective: Interval history: This morning patient is ready to have her thoracocentesis, she tells me that she hates needles, afebrile overnight is down to 4 L, clinically doing better Vitals/I&O/Wt Last Vital Signs Temp 98.1 F 09/12/20 11:31 Pulse 80 09/12/20 11:31 Resp 20 H 09/12/20 11:31 BP 109/64 09/12/20 11:31 Pulse Ox 92 09/12/20 11:31 09/11/20 09/12/20 09/12/20 22:59 06:59 14:59 Intake Total 790 / 790 100 / 890 Output Total 1300 / 1300 1000 / 2300 Balance -510 / -510 -900 / -1410 Physical Exam Const: COMMON NORMALS: no acute distress and patient oriented x3 HENMT: COMMON NORMALS: normocephalic HEAD & SCALP: normocephalic Neck/C-Spine: COMMON NORMALS: no JVD Resp: COMMON NORMALS: normal respiratory effort, No retractions, No use of accessory muscles and clear to auscultation bilaterally AUSCULTATION: clear to auscultation bilaterally Cardio: COMMON NORMALS: no JVD, regular rate, regular rhythm, S1 normal heart sound present and S2 normal heart sound present RATE: regular rate RHYTHM: regular rhythm HEART SOUNDS: S1 normal heart sound present and S2 normal heart sound present GI: COMMON NORMALS: Normal to inspection, nondistended, normoactive bowel sounds present, Soft to palpation, non-tender, No hepatosplenomegaly present, no masses and no bruits PALPATION: Yes Soft to palpation and Yes No hepatosplenomegaly present Extremity: COMMON NORMALS: capillary refill normal, no clubbing, cyanosis or edema, no calf tenderness and no pedal edema Neuro: COMMON NORMALS: patient oriented x3 Psych: COMMON NORMALS: mental status grossly normal Data : 09/12/20 04:43 09/12/20 04:43 Micro: Microbiology 09/06/20 10:20 Blood Culture - Final Blood NO GROWTH AFTER 5 DAYS 09/06/20 10:25 Blood Culture - Final Blood NO GROWTH AFTER 5 DAYS A&P Assessment and plan (1) Acute respiratory failure with hypoxia and hypercapnia: -Secondary to right lower lobe pneumonia with effusion, soft tissue mass, possible pleural adhesions, postobstructive pneumonia -Review of the CT scan shows a right lower lobe density, with parapneumonic effusion extending to the anterior thorax, that is concerning -There is still a question if this is a pneumonia versus a soft tissue mass with associated hemothorax -In addition there is still question if the solid density represents an aspergilloma or tuberculosis focus -In addition patient's D-dimer is elevated, CT angiogram of the chest was ordered last night, but not performed as of yet -Patient is immunocompromise as she has a history of seronegative rheumatoid arthritis, is on abatacept, prednisone, methotrexate -Leukocytosis 14.2 down to the 5 L nasal cannula, clinically improving, continues to have pain on the right chest side -Strandy opacities and some consolidation is seen superimposed over the pleural effusion and right hemidiaphragm compatible with right basilar pneumonia. There is a rounded mass effect seen in the right middle lobe anteriorly measuring 4.2 cm AP dimension by 4.5 cm craniocaudal dimension approximately 5.3 cm transverse dimension. This may represent rounded pneumonia although a underlying soft tissue mass cannot be excluded. No mass was seen on a chest radiograph dated 10/15/2019, rounded area consolidation is seen in the right lung base in a chest today. -LV systolic function is normal with EF of 55 to 60%. Diastolic function is normal. There is trace mitral regurgitation. There is mild to moderate aortic regurgitation. Mild tricuspid regurgitation. Compared to prior echocardiogram from 05/04/2018, no significant changes are noted. -Dr. Garcia advised that he might be able to do a thoracocentesis PLAN: -Currently on MedSurg -Currently on 4 L -High flow to decrease work of breathing, BiPAP as needed -On broad-spectrum antibiotics aztreonam, potential discontinuation today based on thoracocentesis results -We will have a thoracocentesis today and or chest tube placement today based on results -Possible bronchoscopy based on thoracocentesis results -Awaiting ventilation/perfusion scan given elevated D-dimer -Covid negative, AFB smears x3 not required -tb quantiferon negaTIVE -Galactomannan, histoplasma pending -Off isolation -CT of the chest does show a soft tissue mass of the right lower lobe, is a chronic smoker, will require outpatient follow-up -Ventilation/perfusion scan shows intermediate probability for pulmonary emboli, bilateral lower extremity ultrasound negative for DVT, the likelihood of pulmonary emboli is fairly unlikely -Full code -Lovenox for DVT prophylaxis -Plavix on hold Plan for today, continue open ambulation, continue antibiotics, plan for thoracocentesis, further interventions based on results Status: Acute (2) Immunocompromised: Status: Acute (3) Hypokalemia: Status: Acute (4) High risk medication use: Status: Acute (5) Hypothyroidism: Status: Acute Qualifiers: Hypothyroidism type: other Qualified Code(s): E03.8 - Other specified hypothyroidism (6) GERD without esophagitis: Status: Acute (7) Seronegative rheumatoid arthritis: Status: Acute (8) COPD (chronic obstructive pulmonary disease): Status: Acute Qualifiers: COPD type: COPD with acute exacerbation Qualified Code(s): J44.1 - Chronic obstructive pulmonary disease with (acute) exacerbation (9) Hypomagnesemia: Status: Acute (10) Sepsis: Status: Acute (11) Acute respiratory failure with hypoxia: Status: Acute (12) Right lower lobe pneumonia: Status: Acute Qualifiers: Pneumonia type: due to unspecified organism Qualified Code(s): J18.9 - Pneumonia, unspecified organism Additional A&P Information Hyponatremia, sodium 134 Hypokalemia and hypomagnesemia This most likely secondary to use of diuretics such as Lasix Potassium and magnesium repletion Prolonged QTC Grade 1 diastolic dysfunction Preserved ejection fraction currently clinically she is not fluid overloaded I would hold Lasix for now However BNP is 800 Pleuritic chest pain right-sided Likely from pleural effusion, parapneumonic effusion, possible postobstructive pneumonia, will require bronchoscopy Hold disease modifying agents for now Full code Cardiac diet DVT prophylaxis Lovenox Attestations Medical Necessity Statement*: Patient requires hospitalization for pneumonia, possible postobstructive pneumonia with parapneumonic effusion, requiring thoracocentesis Coding Level of Care Code 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
--- NOTE | 2020-09-12 13:20 | PC.OT ---
OT tx attempted x 2. Pt off the floor having procedure at 1200. Back in room at 1320 but sleeping soundly at this time. OT tx withheld today and attempted again tomorrow.
[2020-09-12] MEDS: LORazepam 2 mg/mL INJ 1 mL 0.5 MG IVP (14:10)
--- NOTE | 2020-09-12 15:28 | XRR_ITS ---
PROCEDURE INFORMATION: Exam: XR Chest, 1 View Exam date and time: 09/12/2020 3:33 PM Age: 54 years old Clinical indication: Screening exam; Other screening; Patient HX: Post thoracentesis TECHNIQUE: Imaging protocol: XR of the chest Views: 1 view. COMPARISON: CR (CHEST, ) 09/10/2020 1:43 PM FINDINGS: Lungs: No consolidation of the left lung. Minimal blunting left costophrenic angle. Consolidation of a portion of the right upper lobe and right mid and lower lung. Small to moderate right effusion. Pleural space: See Lungs finding. No pneumothorax. Heart/Mediastinum: Cardiac size is accentuated. Vasculature: Tortuous thoracic aorta. Bones/joints: Unremarkable. XR/XR chest 1V portable [id number] IMPRESSION: 1. Persistent likely pneumonic consolidation of portions of the right upper lobe and right mid and lower lung. 2. Right pleural effusion and minor blunting of the left costophrenic angle which may indicate a minimal left effusion.
--- NOTE | 2020-09-12 16:12 | PM.ACPR ---
Procedure/Consent Procedure Narrative: Pulmonary & Critical Care Medicine Procedure - Thoracentesis Procedure: Thoracentesis Indication: Complicated right pleural effusion Relief Mate(s): Trae Garcia MD Consent: Signed and placed in chart Anesthesia: 10 cc 1% lidocaine without epinephrine Description: Right pleural effusion was localized using ultrasound guidance and the site was marked accordingly. After chlorhexidine skin prep, area was draped in a sterile manner. 1% lidocaine was used for local anesthesia. Thoracentesis catheter was then inserted into the pleural space with aspiration of 20 cc of pleural fluid. Appearance was straw-colored initially and then blood mixed.. Ultrasound guidance used: Yes. EBL: 10 cc Complications: None PCXR: Discussed with radiology and no pneumothorax and fluid looks complicated.
[2020-09-12 16:33] LABS: Apprearance, Body Fluid BLOODY; Body Fluid Specific Gravity 1.015; Color, Body Fluid SLIGHT PINK
[2020-09-12 17:24] LABS: Glucose Point of Care 112 mg/dL (70-110)
[2020-09-12 17:53] LABS: PATH Referral YES
--- NOTE | 2020-09-12 18:47 | PC.NURSE ---
SHIFT SUMMARY PATIENT HAS DONE WELL TODAY. GOOD PO INTAKE AND OUTPUT. PAIN CONTROLLED WITH DILAUDID Q4H. PATIENT ON 3L NC. MINIMAL AMOUNT OF FLUID TAKEN DURING THORACENTESIS. CONTINUE TO MONITOR.
[2020-09-12 18:52] LABS: Albumin Body Fluid 1.5 g/dL; Amylase Body Fluid 14 U/L; Cholesterol Body Fluid 35 mg/dL (0-200); Fluid Alkaline Phos. 37 IU/L; LDH Body Fluid 236 U/L; Total Protein Pleural Fluid 3.1 g/dL; Triglycerides Body Fluid 40 mg/dL (0-150); Uric Acid Body Fluid 1 mg/dL
[2020-09-12 21:42] LABS: Glucose Point of Care 142 mg/dL (70-110)
[2020-09-13] VITALS (14 sets, daily range): BP systolic 111–147; BP diastolic 59–77; PULSE 68–79; RESP 16–20; TEMP 36.5–37.1; O2SAT 86–96
[2020-09-13] MEDS: HYDROmorphone 1 mg/mL INJ 1 mL IVP ×4 (02:33→14:44)
[2020-09-13] MEDS: benzonatate 100 mg Capsule PO (04:18)
[2020-09-13 05:48] LABS: Basophils % 0.2 %; Eosinophils # 0.2 10^3/uL (0.0-0.8); Eosinophils % 2.4 %; Hematocrit 29.3 % (37.0-47.0); Hemoglobin 9.1 g/dL (11.5-15.3); Lymphocytes # 1.7 10^3/uL (0.8-4.8); Lymphocytes % 17.7 %; Mean Corpuscular HGB Conc 31.1 g/dL (30.0-36.0); Mean Corpuscular Hemoglobin 29.4 pg (28.0-34.0); Mean Corpuscular Volume 94.5 fL (81-99); Mean Platelet Volume 10.7 fL (7.4-10.4); Monocytes # 1.6 10^3/uL (0.2-0.9); Monocytes % 17.2 %; Neutrophils # 5.77 10^3/uL (1.8-7.7); Neutrophils % 61.3 %; Nucleated Red Blood Cells % 0 %; Platelet Count 247 10^3/cmm (130-400); Red Cell Distribution Width 15.5 % (12.1-15.1); White Blood Count 9.4 10^3/uL (4.0-10.0)
[2020-09-13] MEDS: aztreonam 2,000 MG in sodium chloride 0.9% (plus) 100 ML 200 MG IV (06:03)
[2020-09-13 06:28] LABS: Alanine Aminotransferase 10 U/L (0-33); Albumin Level 2.4 g/dL (3.5-5.2); Alkaline Phosphatase 78 IU/L (35-105); Anion Gap 8.1 (5-19); Aspartate Amino Transferase 14 U/L (0-32); Blood Urea Nitrogen 4 mg/dL (6-20); C Reactive Protein 71.4 mg/L (0.0-4.9); Calcium 8.6 mg/dL (8.5-10.5); Carbon Dioxide 33 mmol/L (22-29); Chloride 97 mmol/L (98-107); Globulin 4.1 g/dL (1.3-4.6); Glomerular Filtration Rate 165.1 mL/min (90-130); Glucose 95 mg/dL (65-115); Magnesium 1.9 mg/dL (1.7-2.3); Osmolality Calculated 277 mOsm/kg (285-295); Phosphorus 3.6 mg/dL (2.5-4.5); Potassium 3.1 mmol/L (3.5-5.1); Sodium 135 mmol/L (136-145); Total Bilirubin 0.2 mg/dL (0.15-1.2); Total Protein 6.5 g/dL (6.6-8.7)
[2020-09-13 06:36] LABS: NT Pro B Type Natriuretic Pept 173 pg/mL (0-125); Procalcitonin 0.09 ng/mL (0-0.5)
[2020-09-13 06:40] LABS: Glucose Point of Care 82 mg/dL (70-110)
--- NOTE | 2020-09-13 07:00 | US_ITS ---
WS: [id number] ULTRASOUND RIGHT chest. HISTORY: Evaluate for possible thoracentesis. COMPARISON: 09/03/2020. TECHNIQUE: 2-D and color Doppler imaging is submitted. Very small loculated pleural effusion. There is atelectatic lung present. There is thickening of the pleura. Low level echoes within the pleural fluid. US/US chest [id number] IMPRESSION: 1. Small loculated RIGHT pleural effusion. Thoracentesis would probably not be advantageous. 2. No enlargement since the prior study.
--- NOTE | 2020-09-13 07:00 | XR_ITS ---
WS: [id number] PORTABLE CHEST HISTORY: sob COMPARISON: 09/12/2020. Increasing area of consolidation over the central RIGHT lung along the minor fissure. Most likely ate lectasis or pneumonia. Additional increasing consolidation in the RIGHT lower lung probably atelectas is of the RIGHT middle lobe and a very small RIGHT pleural effusion. LEFT lung is clear. No pneumotho rax. Cardiac size: Mildly enlarged cardiac silhouette. Mediastinum/Aorta: Mild atherosclerosis aorta. No osseous abnormality seen. XR/XR chest 1V portable [id number] IMPRESSION: 1. Increasing consolidation centered over the central RIGHT lung with slight e levation of minor fissure suggesting subsegmental atelectasis. 2. RIGHT middle lobe atelectasis may be progressing since the most recent stud y. Central obstructing lesion should be suspected. 3. Very small RIGHT pleural effusion.
[2020-09-13] MEDS: sucralfate 1 gm Tablet PO (08:24)
[2020-09-13] MEDS: pantoprazole DR 40 mg Tablet PO (08:59)
[2020-09-13] MEDS: dilTIAZem 30 mg Tablet PO ×2 (09:00→14:20)
[2020-09-13] MEDS: levothyroxine 88 mcg Tablet PO (09:00)
[2020-09-13] MEDS: sennosides-docusate Tablet 1 TAB PO (09:00)
[2020-09-13] MEDS: fluoxetine 20 mg Capsule PO (09:01)
[2020-09-13] MEDS: cloNIDine 0.1 mg Tablet PO (09:01)
[2020-09-13] MEDS: atorvastatin 40 mg Tablet PO (09:01)
[2020-09-13] MEDS: carvedilol 25 mg Tablet PO (09:01)
[2020-09-13] MEDS: CLONazepam 0.5 mg Tablet 0.25 MG PO (09:17)
[2020-09-13 10:52] LABS: Glucose Point of Care 101 mg/dL (70-110)
--- NOTE | 2020-09-13 10:58 | P.DS_ITS ---
Discharge Providers Date of Admission: 09/03/20 02:09 Date of Discharge: September 13, 2020 Attending Provider at Admission: Jennifer Bailey MD Attending Provider at Discharge: Santo Ron MD Primary Care Provider: Genesis Ochoa MD Diagnoses at Discharge Discharge Diagnosis (1) Acute respiratory failure with hypoxia and hypercapnia: Status: Acute (2) Immunocompromised: Status: Acute (3) Hypokalemia: Status: Acute (4) High risk medication use: Status: Acute (5) Hypothyroidism: Status: Acute Qualifiers: Hypothyroidism type: other Qualified Code(s): E03.8 - Other specified hypothyroidism (6) GERD without esophagitis: Status: Acute (7) Seronegative rheumatoid arthritis: Status: Acute (8) COPD (chronic obstructive pulmonary disease): Status: Acute Qualifiers: COPD type: COPD with acute exacerbation Qualified Code(s): J44.1 - Chronic obstructive pulmonary disease with (acute) exacerbation (9) Hypomagnesemia: Status: Acute (10) Sepsis: Status: Acute (11) Acute respiratory failure with hypoxia: Status: Acute (12) Right lower lobe pneumonia: Status: Acute Qualifiers: Pneumonia type: due to unspecified organism Qualified Code(s): J18.9 - Pneumonia, unspecified organism Reason for Visit Reason for Visit: ABD PAIN / FEVER / SHORTNESS OF BREATH Hospital Course Hospital Course nAgie Naranjo is a 54 year old female who has history of psoriasis, eczema, inflammatory arthritis for which she is taking methotrexate folic acid and prednisone, seronegative rheumatoid arthritis, prior history of DVT in lower extremity, cardiomegaly, presented today with chief complaint of shortness of breath. Patient was admitted to [facility] for acute respiratory failure with hypoxia and hypercapnia secondary to right lower lobe pneumonia with parapneumonic effusion, with soft tissue mass, possible pleural adhesions. Review of the CT scan shows right lower lobe density, with parapneumonic effusion extending to the anterior thorax, was admitted to the general medical floors, received broad-spectrum antibiotic therapy, had a penicillin allergy, inhaler therapy, oxygen therapy, pulmonary was consulted. Patient had a slow clinical progress, all her cultures came back negative, remained afebrile, oxygen requirements decreased to 3 L, she continued to have right-sided chest discomfor likely pleurisy over the location of the parapneumonic effusion. She had multiple thoracic ultrasounds, which showed organized effusion and/or pleural adhesions. In addition she had a bedside thoracocentesis by Dr. Garcia, results seem like sterile effusion, likely in the setting of rheumatoid arthritis, pH was greater than 9, LDH was 260, cultures remain unremarkable. There was discussion about performing another thoracocentesis on an additional pocket of fluid posterior, by radiology, however radiology felt that the risks would outweighed the benefits, and patient refused additional thoracocentesis. In addition there was discussion with cardiothoracic surgery about possibly performing VATS or pleuroscopy, however they felt that the risks would outweigh the benefits, as patient was clinically improving. Thus likely what patient had developed was a parapneumonic effusion, secondary to right lower lobe pneumonia, that slowly resolved and became organized, and should slowly resolve over time. Patient continues to have mild discomfort likely pleurisy over the right side of her chest, I have discharged her on 7 remaining days of doxycycline, with pain controlled with Hancock. Unfortunately cannot discharge her with an anti- inflammatory medication such as Toradol given her hemoglobin 9.1, and concerns for GI bleed. In addition patient had Covid work-up which was negative. TB quantiferon was negative. Galactomannan and histoplasma antibodies were negative. Patient is to follow-up with pulmonary in 1 week, with a repeat CT s can. She was advised that should have recurrent fevers, shortness of breath, worsening pleurisy come back to emergency room Patient also had a intermediate ventilation/perfusion scan, bilateral lower extremity ultrasounds were negative for DVT, unfortunately CT angiogram of the chest cannot be performed due to contrast related allergy of shortness of breath, and I feel that the likelihood of pulmonary emboli is fairly low. Nonetheless we cannot anticoagulate her, given her hemoglobin of 9.1 and concerns for GI bleed. Patient's hemoglobin slowly drifted down during her hospital admission, her Plavix and Lovenox were held, hemoglobin discharge 9.1, she was not hemodynamically unstable, no reports of bloody or black stools. I have discharged her on Protonix, Carafate with instructions to continue to hold Plavix. Patient should follow-up with primary care provider in 1 week for recheck CBC. If she were to have lightheadedness, dizziness blood or black stools come back to emergency room. Lastly I have also referred her to general surgery for consideration of EGD. Physical Exam Const: COMMON NORMALS: no acute distress and patient oriented x3 HENMT: COMMON NORMALS: normocephalic HEAD & SCALP: normocephalic Neck/C-Spine: COMMON NORMALS: no JVD Resp: COMMON NORMALS: normal respiratory effort, No retractions, No use of accessory muscles and clear to auscultation bilaterally AUSCULTATION: clear to auscultation bilaterally Cardio: COMMON NORMALS: no JVD, regular rate, regular rhythm, S1 normal heart sound present and S2 normal heart sound present RATE: regular rate RHYTHM: regular rhythm HEART SOUNDS: S1 normal heart sound present and S2 normal heart sound present GI: COMMON NORMALS: Normal to inspection, nondistended, normoactive bowel sounds present, Soft to palpation, non-tender, No hepatosplenomegaly present, no masses and no bruits PALPATION: Yes Soft to palpation and Yes No hepatosplenomegaly present Extremity: COMMON NORMALS: capillary refill normal, no clubbing, cyanosis or edema, no calf tenderness and no pedal edema Neuro: COMMON NORMALS: patient oriented x3 Psych: COMMON NORMALS: mental status grossly normal Discharge Data Data Completed and Pending: Completed Studies During Hospitalization Category Date Time Status CT chest wo con 7 1250 Stat Cat Scan 09/02/20 23:04 Completed CXRP [XR chest 1V portable [id number]] S tat Exams 09/12/20 15:28 Completed XR chest 1V patricia ble [id number] Routine Exams 09/08/20 07:00 Completed XR chest 1V patricia ble [id number] Routine Exams 09/10/20 13:03 Completed XR chest 1V patricia ble [id number] Routine Exams 09/13/20 07:00 Completed XR chest 1V patricia ble [id number] Routine Exams 09/04/20 07:00 Completed XR chest 1V patricia ble [id number] Stat Exams 09/02/20 20:53 Completed NM pul vent and p erfus* [id number] Routi ne Nuc Med 09/10/20 09:00 Completed CV echo complete* [id number] Stat Ultrasound 09/03/20 11:13 [place] [id number] Routin e Ultrasound 09/11/20 12:18 Completed US chest [id number] Ro utine Ultrasound 09/13/20 07:00 [place] [id number] St at Ultrasound 09/03/20 11:14 Completed Pending at discharge Category Date Time Status Anaerobic Culture Routine Lab 09/12/20 15:20 Results Body Fluid Cultur e & GS Routine Lab 09/12/20 15:20 Results C Reactive Protei n AM LABS Lab 09/14/20 04:00 Ordered C Reactive Protei n AM LABS Lab 09/15/20 04:00 Ordered Complete Blood Co unt w/Auto AM LABS Lab 09/14/20 04:00 Ordered Complete Blood Co unt w/Auto AM LABS Lab 09/15/20 04:00 Ordered Comprehensive Met abolic Panel AM LA BS Lab 09/14/20 04:00 Ordered Comprehensive Met abolic Panel AM LA BS Lab 09/15/20 04:00 Ordered Fungal Culture no t HR/SK/BL Routine Lab 09/12/20 15:20 Received Fungal Culture no t HR/SK/BL Stat Lab 09/03/20 15:36 Received Magnesium AM LABS Lab 09/14/20 04:00 Ordered Magnesium AM LABS Lab 09/15/20 04:00 Ordered Mycobacteria, Cul ture w/Fluor Routi ne Lab 09/12/20 15:20 Received NT Pro B Type Opal riuretic Pept QAM Lab 09/14/20 06:00 Ordered NT Pro B Type Opal riuretic Pept QAM Lab 09/15/20 06:00 Ordered Phosphorus AM LAB S Lab 09/14/20 04:00 Ordered Phosphorus AM LAB S Lab 09/15/20 04:00 Ordered Procalcitonin AM LABS Lab 09/14/20 04:00 Ordered Procalcitonin AM LABS Lab 09/15/20 04:00 Ordered Cytology [PTH] Ro utine Pth 09/12/20 15:20 Received Labs from last 24 hours 09/13/20 09/13/20 09/13/20 10:43 06:03 05:02 WBC RBC Hgb Hct MCV MCH MCHC RDW Plt Count MPV Neut % (Auto) Lymph % (Auto) Pickett % (Auto) Eos % (Auto) Baso % (Auto) Neut # (Auto) Lymph # (Auto) Pickett # (Auto) Eos # (Auto) Baso # (Auto) Nucleated RBC % (a uto) Nucleated RBCs # Differential Comme nt Sodium Potassium Chloride Carbon Dioxide Anion Gap BUN Creatinine GFR Calculation Glucose POC Glucose 101 82 Calculated Osmolal ity Calcium Phosphorus Magnesium Total Bilirubin AST ALT Alkaline Phosphata se C-Reactive Protein NT-Pro-B Natriuret Pep 173 H Total Protein Albumin Globulin Procalcitonin 0.09 Fluid Color Fluid Appearance Fluid Specific Gra v Fluid pH Fluid WBC Fluid RBC Fld Polynuclear WB Cs # Fld Polynuclear WB Cs % Fl Mononucl WBCs # (Auto) Fl Mononuclear % A uto Fluid Glucose Fluid Albumin Fluid LDH Fluid Amylase Fluid Alk Phosphat ase Fluid Cholesterol Fluid Triglyceride s Fluid Uric Acid Pleural Total Prot ein Misc Test Referenc e 09/13/20 09/13/20 09/12/20 05:02 05:02 20:36 WBC 9.4 RBC 3.10 L Hgb 9.1 L Hct 29.3 L MCV 94.5 MCH 29.4 MCHC 31.1 RDW 15.5 H Plt Count 247 MPV 10.7 H Neut % (Auto) 61.3 Lymph % (Auto) 17.7 Pickett % (Auto) 17.2 Eos % (Auto) 2.4 Baso % (Auto) 0.2 Neut # (Auto) 5.77 Lymph # (Auto) 1.7 Pickett # (Auto) 1.6 H Eos # (Auto) 0.2 Baso # (Auto) 0.0 Nucleated RBC % (a uto) 0 Nucleated RBCs # 0.0 Differential Comme nt Sodium 135 L Potassium 3.1 L Chloride 97 L Carbon Dioxide 33 H Anion Gap 8.1 BUN 4 L Creatinine 0.4 L GFR Calculation 165.1 H Glucose 95 POC Glucose 142 H Calculated Osmolal ity 277 L Calcium 8.6 Phosphorus 3.6 Magnesium 1.9 Total Bilirubin 0.2 AST 14 ALT 10 Alkaline Phosphata se 78 C-Reactive Protein 71.4 H NT-Pro-B Natriuret Pep Total Protein 6.5 L Albumin 2.4 L Globulin 4.1 Procalcitonin Fluid Color Fluid Appearance Fluid Specific Gra v Fluid pH Fluid WBC Fluid RBC Fld Polynuclear WB Cs # Fld Polynuclear WB Cs % Fl Mononucl WBCs # (Auto) Fl Mononuclear % A uto Fluid Glucose Fluid Albumin Fluid LDH Fluid Amylase Fluid Alk Phosphat ase Fluid Cholesterol Fluid Triglyceride s Fluid Uric Acid Pleural Total Prot ein Misc Test Referenc e 09/12/20 09/12/20 09/12/20 17:10 15:20 11:00 WBC RBC Hgb Hct MCV MCH MCHC RDW Plt Count MPV Neut % (Auto) Lymph % (Auto) Pickett % (Auto) Eos % (Auto) Baso % (Auto) Neut # (Auto) Lymph # (Auto) Pickett # (Auto) Eos # (Auto) Baso # (Auto) Nucleated RBC % (a uto) Nucleated RBCs # Differential Comme nt Yes Sodium Potassium Chloride Carbon Dioxide Anion Gap BUN Creatinine GFR Calculation Glucose POC Glucose 112 H 101 Calculated Osmolal ity Calcium Phosphorus Magnesium Total Bilirubin AST ALT Alkaline Phosphata se C-Reactive Protein NT-Pro-B Natriuret Pep Total Protein Albumin Globulin Procalcitonin Fluid Color Slight pink Fluid Appearance Bloody Fluid Specific Gra v 1.015 Fluid pH 9.0 Fluid WBC TNP Fluid RBC TNP Fld Polynuclear WB Cs # TNP Fld Polynuclear WB Cs % TNP Fl Mononucl WBCs # (Auto) TNP Fl Mononuclear % A uto TNP Fluid Glucose 66.0 Fluid Albumin 1.5 Fluid LDH 236 Fluid Amylase 14 Fluid Alk Phosphat ase 37 Fluid Cholesterol 35 Fluid Triglyceride s 40 Fluid Uric Acid 1 Pleural Total Prot ein 3.1 Misc Test Referenc e 09/03/20 09/03/20 15:36 10:45 WBC RBC Hgb Hct MCV MCH MCHC RDW Plt Count MPV Neut % (Auto) Lymph % (Auto) Pickett % (Auto) Eos % (Auto) Baso % (Auto) Neut # (Auto) Lymph # (Auto) Pickett # (Auto) Eos # (Auto) Baso # (Auto) Nucleated RBC % (a uto) Nucleated RBCs # Differential Comme nt Sodium Potassium Chloride Carbon Dioxide Anion Gap BUN Creatinine GFR Calculation Glucose POC Glucose Calculated Osmolal ity Calcium Phosphorus Magnesium Total Bilirubin AST ALT Alkaline Phosphata se C-Reactive Protein NT-Pro-B Natriuret Pep Total Protein Albumin Globulin Procalcitonin Fluid Color Fluid Appearance Fluid Specific Gra v Fluid pH Fluid WBC Fluid RBC Fld Polynuclear WB Cs # Fld Polynuclear WB Cs % Fl Mononucl WBCs # (Auto) Fl Mononuclear % A uto Fluid Glucose Fluid Albumin Fluid LDH Fluid Amylase Fluid Alk Phosphat ase Fluid Cholesterol Fluid Triglyceride s Fluid Uric Acid Pleural Total Prot ein Misc Test Referenc e See comment See comment Vitals: Last Vital Signs Temp 98.3 F 09/13/20 07:45 Pulse 68 09/13/20 08:19 Resp 16 09/13/20 10:29 BP 127/65 09/13/20 09:01 Pulse Ox 96 09/13/20 08:19 Discharge Plan Discharge Patient Disposition: Home Condition: Stable Prescriptions: New sucralfate 1 gram Tablet 1 g PO BIDAC 30 Days Qty: 30 RF: 0 doxycycline hyclate 100 mg capsule 100 mg PO BID 7 Days Qty: 14 RF: 0 Hancock 5-325 mg tablet 1 tab PO Q6H PRN (Reason: pain) 7 Days Qty: 28 RF: 0 Continued clonidine HCl 0.1 mg tablet 0.1 mg PO BID Qty: 60 RF: 2 furosemide [Lasix] 20 mg tablet 20 mg PO DAILY Qty: 30 RF: 1 diltiazem HCl [Cardizem] 30 mg tablet 30 mg PO TID Qty: 90 RF: 0 albuterol sulfate 2.5 mg /3 mL (0.083 %) solution for nebulization 2.5 mg INHALATION Q4H PRN (Reason: shortness of breath or wheezing) Qty: 90 RF: 3 albuterol sulfate [Ventolin HFA] 90 mcg/actuation HFA aerosol inhaler 2 puff INHALATION QID PRN (Reason: shortness of breath or wheezing) Qty: 18 RF: 3 triamcinolone acetonide 0.1 % ointment 1 applic TOPICAL BID Qty: 30 RF: 3 atorvastatin 40 mg tablet 40 mg PO DAILY Qty: 30 RF: 4 carvedilol 25 mg tablet 25 mg PO BID Qty: 60 RF: 4 cholecalciferol (vitamin D3) 50 mcg (2,000 unit) tablet 2,000 unit PO DAILY Qty: 30 RF: 5 cyclobenzaprine 10 mg tablet 10 mg PO BID PRN (Reason: muscle spasm) Qty: 60 RF: 2 fluoxetine 20 mg capsule 40 mg PO QDAY Qty: 60 RF: 2 Trelegy Ellipta 100-62.5-25 mcg blister with device 1 inh INHALATION DAILY Qty: 28 RF: 3 hydroxyzine HCl 25 mg tablet 25 mg PO QID PRN (Reason: anxiety) Qty: 120 RF: 2 levothyroxine 88 mcg capsule 88 mcg PO DAILY Qty: 30 RF: 5 mupirocin calcium 2 % cream 1 applic TOPICAL TID Qty: 30 RF: 0 folic acid 1 mg tablet 1 mg PO QDAY Qty: 90 RF: 3 Changed pantoprazole 40 mg tablet,delayed release (DR/EC) 40 mg PO BIDWM 30 Days Qty: 60 RF: 3 potassium chloride 20 mEq tablet extended release 20 meq PO DAILY Qty: 30 RF: 2 Held clopidogrel 75 mg tablet 75 mg PO QDAY Qty: 30 RF: 5 Hold Instructions: Resume on 09/27/20. hold until you see primary care in 1 week methotrexate sodium 2.5 mg tablet See Rx Instructions PO .COMPLEX Qty: 40 RF: 3 Hold Instructions: Resume on 10/11/20. hold until you see rheumatology prednisone 5 mg tablet 5 mg PO DAILY Qty: 30 RF: 3 Hold Instructions: Resume on 10/11/20. hold until you see rheumatology Orencia ClickJect 125 mg/mL auto-injector 125 mg SUBCUT .Q7days Qty: 4 RF: 3 Hold Instructions: Resume on 10/11/20. hold until you see rheuamtology Discharge Orders: Discharge Order (Routine); Ordered 09/13/20 Ordered By: Santo Ron Other Ambulatory Orders: Complete Blood Count w/Auto (Routine) Timeframe: 1 Week Location: Determined by Patient Ordered By: Santo Ron Referrals: Trae Garcia MD [Physician] - 1 week Pedro Murphy MD [Physician] - 10/16/20 9:15 am Genesis Ochoa MD [Primary Care Provider] - Patient Instructions: Sucralfate (By mouth), Doxycycline (By mouth), Hydrocodone/Acetaminophen (By mouth), Pneumonia (GEN), Pneumonia Stoplight, Using Oxygen at Home Activity Restrictions/Additional Instructions: -Hold methotrexate, prednisone, abatacept until you see rheumatology -Hold Plavix, hemoglobin discharges 9.1, if you have bloody or black stools, feel lightheaded or dizzy come back to emergency room -Follow-up with primary care provider this week for recheck CBC -I have discharged on Carafate, Protonix -We will have you follow-up with general surgery as outpatient -Continue doxycycline for 7 days, monitor for fevers, use Hancock sparingly, continue inhalers -Please follow-up with pulmonary in 1 week Discharge Attestations Time Spent in Discharge Care*: less than 30 min Quality Metrics Clinical Quality Measures During this hospital stay, did patient experience: None Coding Level of Care Code 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
[2020-09-13] MEDS: doxycycline 100 mg Tablet PO (12:19)
--- NOTE | 2020-09-13 15:15 | PC.OT ---
OT TREATMENT ATTEMPTED TWICE: A.M. WAS ON PHONE AND ASKED FOR ME TO COME BACK LATER P.M. PATIENT WAS SOUND ASLEEP. PATIENT IS SCHEDULED FOR DISCHARGE. OT TREATMENT HELD FOR THESE REASONS
== END 2020-09-13 16:57 | disposition home or self-care (01) | DRG 871 ==
LOC: ER 09-03 00:11 → MEDSURG 09-03 03:31
PROVIDERS: Family Medicine; Internal Medicine Pulmonary Disease; Admitting Provider Internal Medicine; Emergency Provider Emergency Medicine; PCP Family Medicine; Visit Provider Family Medicine
DX: A41.9 Sepsis, unspecified organism (principal); J96.02 Acute respiratory failure with hypercapnia; J96.01 Acute respiratory failure with hypoxia; J18.9 Pneumonia, unspecified organism; J44.1 Chronic obstructive pulmonary disease with (acute) exacerbation; J44.0 Chronic obstructive pulmonary disease with (acute) lower respiratory infection; J90 Pleural effusion, not elsewhere classified; L40.9 Psoriasis, unspecified; M06.00 Rheumatoid arthritis without rheumatoid factor, unspecified site; Z79.899 Other long term (current) drug therapy; Z86.718 Personal history of other venous thrombosis and embolism; E83.42 Hypomagnesemia; I10 Essential (primary) hypertension; M79.7 Fibromyalgia; E78.5 Hyperlipidemia, unspecified; E89.0 Postprocedural hypothyroidism; F17.210 Nicotine dependence, cigarettes, uncomplicated; E87.6 Hypokalemia; K21.9 Gastro-esophageal reflux disease without esophagitis; I08.3 Combined rheumatic disorders of mitral, aortic and tricuspid valves; Z79.51 Long term (current) use of inhaled steroids
CPT/HCPCS: 12345; 36415; 36416; 36600; 71045; 71250; 76604; 78014; 80051; 80053; 80202; 80500; 82042; 82150; 82330; 82465; 82550; 82728; 82803; 82805; 82945; 82962; 83605; 83615; 83735; 83880; 83986; 84075; 84100; 84145; 84157; 84315; 84478; 84484; 84560; 85025; 85362; 85378; 85384; 85610; 85730; 86140; 86403; 86480; 86698; 87015; 87040; 87070; 87075; 87077; 87081; 87102; 87116; 87205; 87206; 87305; 87426; 87449; 87556; 87635; 87641; 87801; 87804; 88112; 88305; 89050; 93005; 93306; 93970; 94640; 94660; 96372; 97110; 97116; 97161; 97165; 97530; 97535; 99284; A9540; A9567; J0692; J1100; J1170; J1650; J1815; J1940; J1956; J2060; J2270; J2405; J2920; J3370; J3475; J3490; J3535; J7030

== ENCOUNTER → 2020-09-25 16:45 | Outpatient (BNVA) | payer MEDICARE, MEDICAID, SELFPAY | PROVIDERS: PCP Family Medicine; Visit Provider Family Medicine | DX: J96.01 Acute respiratory failure with hypoxia (principal); I10 Essential (primary) hypertension | CPT/HCPCS: 85025 ==

== ENCOUNTER → 2020-10-20 15:31 | Outpatient (BNVA) | payer MEDICARE, MEDICAID, SELFPAY | PROVIDERS: PCP Family Medicine; Visit Provider Surgery | DX: Z01.812 Encounter for preprocedural laboratory examination (principal) | CPT/HCPCS: 87635 ==

== ENCOUNTER → 2020-11-02 13:50 | Outpatient (BNVA) | payer MEDICARE, MEDICAID, SELFPAY | PROVIDERS: PCP Family Medicine; Visit Provider Surgery | DX: Z01.812 Encounter for preprocedural laboratory examination (principal); D64.9 Anemia, unspecified; K21.9 Gastro-esophageal reflux disease without esophagitis | CPT/HCPCS: 87635 ==

== ENCOUNTER 2020-11-07 09:35 | Day surgery (SDC) | payer MEDICARE, MEDICAID, SELFPAY ==
[2020-11-06 13:06] VITALS: BMI 31.1
[2020-11-07] MEDS: midazolam 1 mg/mL INJ 2 mL 2 MG IVP (10:00)
[2020-11-07 10:10] VITALS: BP 126/73; PULSE 80; RESP 18; TEMP 36.7; O2SAT 100
[2020-11-07] MEDS: sodium chloride 0.9% 1,000 ML 30 ML IV (10:42)
--- NOTE | 2020-11-07 11:14 | ANES.PREANE2 ---
Pre-Anesthetic Assessment Pre-Anesthetic Assessment: Height/Weight: Height 1.55 m Weight 74.843 kg Temp Pulse Resp BP Pulse Ox 98.0 F 80 18 126/73 100 11/07/20 10:10 11/07/20 10:10 11/07/20 10:10 11/07/20 10:10 11/07/20 10:10 Preop Diagnosis: panendoscopy Proposed Procedure: Operation Date: 11/07/20 10:30 Proposed Procedures p EGD/colon 25488 19636 Z12.11 D64.9(Not Applicable) - Pedro Murphy MD s Colonoscopy(Not Applicable) - Pedro Murphy MD Familial anesthetic complications: None Was Beta Roxy taken within 24 hours: N/A Last intake: Intake Last Liquid Date 11/06/20 Last Solid Date 11/05/20 Social: Social History: Tobacco and No alcohol Exam: Pre-Anes Outpt Exam: alert, oriented x 3, clear to auscultation bilaterally (Coarse breath sounds on R) and regular rate & rhythm Airway: Cervical ROM: WNL MP: 3 Dentition: False Pulmonary: Pulmonary: COPD, MODI and Sleep apnea (CPAP) Comments: Pneumonia on R side in September, discharged home on O2 and still wearing o2. Patient states she has had wheezing her R lung since that time. CV/HEM: CV/HEM: CAD (mild) Comments: Mild to mod aortic regurge, EF 60% in August 27 GI: GI: GERD Metabolic: Metabolic: Hyperlipidemia and Thyroid Musc/skel: Musc/skel: RA Anesthetic Plan: ASA status: 4 Anesthesia: MAC Risk of > 500 ml blood loss (7ml/kg in children): No Meds/Allergies Current Medications: Current Medications Generic Name Dose Route Start Last Admin Trade Name Freq PRN Reason Stop Dose Admin Sodium Chloride 1,000 mls @ 30 ml s/hr 11/07/20 10:15 11/07/20 10:42 Sodium Chloride 0.9% IV 11/08/20 10:14 30 mls/hr .Q24H AKUA Administration Midazolam HCl 2 mg 11/07/20 10:01 11/07/20 10:00 Midazolam 1 Mg/M l Inj 2 Ml IVP 2 mg Q5M PRN Administration Preop Anxiety PFSH Anesthesia PFSH: Medical History (Updated 10/16/20 @ 10:29 by Pedro Murphy MD) Aortic regurgitation Eczema Essential (primary) hypertension Fibromyalgia Hyperlipidemia Inflammatory arthritis Seronegative rheumatoid arthritis Surgical History (Updated 10/16/20 @ 10:29 by Pedro Murphy MD) H/O breast biopsy H/O thyroidectomy History of tonsillectomy Hx of cholecystectomy Status post colonoscopy Family History Mother Rheumatoid arthritis Father Rheumatoid arthritis Leukemia Denies family history of Lupus Social History Smoking and tobacco status: current every day smoker cigarettes Packs smoked per day: 0.25 Years cigarettes smoked: 25 Second hand smoke exposure: Yes Alcohol intake: never Marital status: Current occupational status: disabled History of recent travel: No Current gender identity: Female Data Anesthesia Cardiac Studies: Holter Monitor 09/14/19
--- NOTE | 2020-11-07 11:32 | XRR_ITS ---
PROCEDURE INFORMATION: Exam: XR Chest Exam date and time: 11/07/2020 11:36 AM Age: 54 years old Clinical indication: Shortness of breath; Additional info: Repeat TECHNIQUE: Imaging protocol: XR of the chest Views: 1 view. COMPARISON: CR XR chest 1V portable [id number] 09/13/2020 6:06 AM FINDINGS: Lungs: Alveolar airspace consolidation left perihilar region and upper lobe. Patchy airspace disease right lung base. The latter is improved. Pleural spaces: Unremarkable. No pleural effusion. No pneumothorax. Heart/Mediastinum: Unremarkable. No cardiomegaly. Bones/joints: Unremarkable. XR/XR chest 1V portable [id number] IMPRESSION: Alveolar airspace consolidation left perihilar region and upper lobe. Patchy airspace disease right lung base. Possible pneumonia. Possible mass. The latter is improved. Consider CT.
--- NOTE | 2020-11-07 12:03 | W.PM.OPSUD ---
Surgery/Procedure H&P Update DATE OF PROCEDURE: November 07, 2020 DATE H&P PERFORMED: 10/16/20 H&P UPDATE INFORMATION: I have reviewed H&P completed within last 30 days, I have examined patient prior to procedure and No changes to prior documentation PREOP DIAGNOSIS: panendoscopy PLANNED PROCEDURE: Operation Date: 11/07/20 10:30 Proposed Procedures p EGD/colon [id number] Z12.11 D64.9(Not Applicable) - Pedro Murphy MD s Colonoscopy(Not Applicable) - Pedro Murphy MD
[2020-11-07 12:49] VITALS: BP 97/57; PULSE 76; RESP 18; TEMP 36.1; O2SAT 96
--- NOTE | 2020-11-07 12:54 | ANE.PACU2 ---
Inpatient post-anesthesia follow up: Airway intact: Yes Vital signs: Temperature 97 F Pulse Rate 76 Respiratory Rate 18 Blood Pressure 97/57 Pulse Oximetry 96 Oxygen Delivery Me thod Nasal Cannula Oxygen Flow Rate 2 Fraction of Inspir ed Oxygen Hydration adequate: Yes Nausea and vomiting: No Pain level: 1 Mental status: Baseline
[2020-11-07 13:07] VITALS: BP 111/63; PULSE 79; RESP 18; O2SAT 97
== END 2020-11-07 13:37 | disposition home or self-care (01) ==
PROVIDERS: PCP Family Medicine; Visit Provider Surgery
PROC: 0DJ08ZZ Inspection of Upper Intestinal Tract, Via Natural or Artificial Opening Endoscopic (ICD-10-PCS; CPT 43235; principal; 2020-11-07 10:30)
PROC: 0DJD8ZZ Inspection of Lower Intestinal Tract, Via Natural or Artificial Opening Endoscopic (ICD-10-PCS; CPT 45378; 2020-11-07 10:30)
DX: D64.9 Anemia, unspecified (principal); K29.70 Gastritis, unspecified, without bleeding; K29.80 Duodenitis without bleeding; D12.4 Benign neoplasm of descending colon; K57.30 Diverticulosis of large intestine without perforation or abscess without bleeding; K64.8 Other hemorrhoids; I10 Essential (primary) hypertension; M79.7 Fibromyalgia; E78.5 Hyperlipidemia, unspecified; F17.210 Nicotine dependence, cigarettes, uncomplicated; I25.10 Atherosclerotic heart disease of native coronary artery without angina pectoris; K21.9 Gastro-esophageal reflux disease without esophagitis; M06.9 Rheumatoid arthritis, unspecified
CPT/HCPCS: 43235; 45380; 45385; 71045; 88305; 96361; 96374; J2250; J2704; J7030

== ENCOUNTER → 2020-12-05 17:00 | Outpatient (BNVA) | payer MEDICARE, MEDICAID, SELFPAY | PROVIDERS: PCP Family Medicine; Visit Provider Family Medicine | DX: E03.8 Other specified hypothyroidism (principal); E78.2 Mixed hyperlipidemia; J44.1 Chronic obstructive pulmonary disease with (acute) exacerbation; L40.59 Other psoriatic arthropathy; I10 Essential (primary) hypertension; Z09 Encounter for follow-up examination after completed treatment for conditions other than malignant neoplasm | CPT/HCPCS: 80053; 80061; 84443; 85025 ==

== ENCOUNTER 2021-04-03 23:17 | Emergency (ER) | payer MEDICARE, MEDICAID, SELFPAY ==
[2021-04-03 23:23] VITALS: BP 128/78; PULSE 98; RESP 30; TEMP 39.6; O2SAT 90; BMI 30.2
--- NOTE | 2021-04-03 23:24 | ECG_ITS ---
[facility] ED Test Date: 2021-04-03 Pat Name: Angie Naranjo Department: Room: Gender: Female Bend Sorter: : 1965 Requested By: Ghazala Garrett Order Number: [id number] Asa MD: Lynne Willett M.D. Measurements Intervals [place] Rate: 94 P: 62 WI: 172 QRS: 10 QRSD: 92 T: 188 QT: 303 QTc: 380 Interpretive Statements SINUS RHYTHM POSSIBLE LEFT ATRIAL ENLARGEMENT [-0.1mV P WAVE IN V1/V2] POSSIBLE ANTERIOR MYOCARDIAL INFARCTION [30 ms Q WAVE IN V3/V4, OR R < 0.2 mV IN V4], PROBABLY OLD MODERATE T-WAVE ABNORMALITY, CONSIDER LATERAL ISCHEMIA [-0.1+ mV T WAVE IN I/aVL/V5/V6] MODERATE T-WAVE ABNORMALITY, CONSIDER INFERIOR ISCHEMIA [-0.1+ mV T WAVE IN II/aVF] Compared to ECG 09/03/2020 03:40:28 Myocardial infarct finding now present T-wave abnormality now present Possible ischemia now present Prolonged QT interval no longer present Electronically Signed On 04-19-2021 9:58:42 CDT by Lynne Willett M.D. [id number]
--- NOTE | 2021-04-03 23:24 | XRR_ITS ---
PROCEDURE INFORMATION: Exam: XR Chest Exam date and time: 04/03/2021 11:24 PM Age: 55 years old Clinical indication: Shortness of breath; Patient HX: SOB and hypoxia. Diaphoretic. TECHNIQUE: Imaging protocol: XR of the chest. Views: 1 view. COMPARISON: CR XR chest 1V portable [id number] 11/07/2020 11:39 AM FINDINGS: Lungs: There is ill-defined opacity in the left lower lung. There is minimal opacity in the right lower lung. Pleural spaces: There is no pleural effusion or pneumothorax. Heart/Mediastinum: There is mild enlargement of the cardiac silhouette. Bones/joints: Bones are unremarkable. XR/XR chest 1V portable [id number] IMPRESSION: Bilateral lower lung opacities, left greater than right. Probable pneumonia.
[2021-04-03] MEDS: dexamethasone 4 mg/mL INJ 10 MG IVP (23:33)
--- NOTE | 2021-04-03 23:36 | W.ED.COVID ---
HPI - COVID General: Chief Complaint: COVID symptoms Stated Complaint: SOB Time Seen by Provider: 04/03/21 23:18 Source: patient and EMS Mode of arrival: EMS Limitations: no limitations Triage information: Has fever, cough or shortness of breath. No known COVID + exposure last 14 days History of Present Illness: HPI Narrative: 55-year-old female states she has felt ill over the last 4 to 5 days. She states she has had cough high fever and shortness of breath. She has a history of COPD and is on 4 L at baseline. EMS states that when they arrived she is 57% on that 4 L. They gave her breathing treatment in route she has improved and is currently on 6 L. Patient is ill-appearing and has a fever of 103 here. Denies any vomiting or diarrhea. Denies any chest pain. COVID 19 common symptoms: positive fever(s), chills, non-productive cough and dyspnea; negative headache(s), throat pain, nausea, vomiting or diarrhea COVID 19 other sytmptoms: negative chest pain COVID Results: SARS-CoV-2 Antigen (Rapid) Positive (Negative) H 04/03/21 23:25 04/03/21 SARS-CoV-2 RNA (RT-PCR) Not detected (NOT DETECTED) 10/20/20 15:31 10/20/20 Nasal/Oral Coronavirus 2019 PCR Not detected 11/02/20 13:50 11/02/20 Review of Systems Const: Reports: fever(s) and chills Eyes: Denies: blurry vision or eye discomfort ENMT: Denies: throat pain or dental pain Card: Denies: chest pain Resp: Reports: dyspnea and non-productive cough GI: Denies: abdominal pain, nausea, vomiting or diarrhea : Denies: dysuria Musc: Denies: neck pain or back pain Skin/Breast: Denies: rash Neuro: Denies: headache(s) Psych: Denies: depression Lewis/Lymph: Denies: easy bruising All/Imm: Denies: urticaria PFSH ED PFSH: Medical History Aortic regurgitation Eczema Essential (primary) hypertension Fibromyalgia Hyperlipidemia Inflammatory arthritis Seronegative rheumatoid arthritis Surgical History H/O breast biopsy H/O esophagogastroduodenoscopy (11/07/20) H/O thyroidectomy History of tonsillectomy Hx of cholecystectomy Status post colonoscopy (11/07/20) Family History Mother Rheumatoid arthritis Father Rheumatoid arthritis Leukemia Denies family history of Lupus Social History Smoking and tobacco status: current every day smoker cigarettes Packs smoked per day: 0.25 Years cigarettes smoked: 25 Second hand smoke exposure: Yes Alcohol intake: never Marital status: Current occupational status: disabled History of recent travel: No Current gender identity: Female Physical Exam Const: COMMON NORMALS: patient oriented x3; apparent distress GENERAL APPEARANCE: in distress, lethargic and ill appearing ORIENTATION/CONSCIOUSNESS: Yes lethargic HENMT: COMMON NORMALS: normocephalic and atraumatic HEAD & SCALP: normocephalic and atraumatic Eye: COMMON NORMALS: Equal, round and reactive pupils present and EOMs intact bilaterally PUPIL: Yes Equal, round and reactive pupils present Neck/C-Spine: COMMON NORMALS: full ROM and supple Chest: COMMONS NORMALS: normal inspection of the chest and normal palpation of entire chest wall Resp: COMMON NORMALS: No retractions EFFORT & INSPECTION: Yes tachypneic and Yes respiratory distress AUSCULTATION: diminished lung sounds Cardio: COMMON NORMALS: regular rhythm and No murmurs present (Cardio) RATE: tachycardic RHYTHM: regular rhythm GI: COMMON NORMALS: Normal to inspection, nondistended, normoactive bowel sounds present, Soft to palpation, non-tender and no masses PALPATION: Yes Soft to palpation Extremity: COMMON NORMALS: normal to inspection and full ROM Neuro: COMMON NORMALS: patient oriented x3, moves all extremities and no focal motor deficits SENSORIUM/ORIENTATION: Yes lethargic Psych: COMMON NORMALS: mental status grossly normal, Normal thought process present and cooperative THOUGHT PROCESS: Normal thought process present Skin: COMMON NORMALS: no rashes or lesions noted and no wounds GENERAL SKIN EXAM: no rashes or lesions noted Course Vital Signs: Vital signs: Vital Signs Temperature 103.2 F H 04/03/21 23:23 Pulse Rate 90 04/03/21 23:57 Respiratory Rate 20 H 04/03/21 23:57 Blood Pressure 128/78 04/03/21 23:23 Pulse Oximetry 90 04/03/21 23:57 MDM - COVID MDM Narrative: Medical decision making narrative: Patient presents here with Covid pneumonia. Patient's febrile and requiring 6 L of oxygen here. She has improved since her breathing treatment. X-ray shows Covid pneumonia as well. Patient will be given steroids and remdesivir. I spoke to hospitalist at [facility] and will transfer there for bed availability. Patient has been stable while here. Lab Data: Labs: Lab Results 04/03/21 04/03/21 04/03/21 Range/Units 00:00 23:25 23:25 WBC (4.0-10.0) 10^3/ uL RBC (4.1-5.3) 10^6/u L Hgb (11.5-15.3) g/dL Hct (37.0-47.0) % MCV (81-99) fL MCH (28.0-34.0) pg MCHC (30.0-36.0) g/dL RDW (12.1-15.1) % Plt Count (130-400) 10^3/c mm MPV (7.4-10.4) fL Neut % (Auto) % Lymph % (Auto) % Irwin % (Auto) % Eos % (Auto) % Baso % (Auto) % Neut # (Auto) (1.8-7.7) 10^3/u L Lymph # (Auto) (0.8-4.8) 10^3/u L Irwin # (Auto) (0.2-0.9) 10^3/u L Eos # (Auto) (0.0-0.8) 10^3/u L Baso # (Auto) (0.0-0.1) 10^3/u L Nucleated RBC % (a uto) % Nucleated RBCs # /100WBC D-Dimer 0.76 H (0-0.59) ug/mIFE U Specimen Type Arterial Sample Site Radial, right ABG pH 7.43 (7.35-7.45) ABG pCO2 50.0 H (35-45) mmHg ABG pO2 54.7 L (80.0-100.0) mmH g ABG HCO3 33.3 H (22-26) mmol/L ABG Base Excess 7.9 H (-2.0-2.0) mmol/ L Rudy Test Pos Hematocrit 31.3 L (37-47) % O2 Delivery Device Nc O2 Liters/Min 6.0 % Supervisor Baking ID Posjo Sodium 134 L (136-145) mmol/L Potassium 2.7 L* (3.5-5.1) mmol/L Chloride 93 L (98-107) mmol/L Carbon Dioxide 28 (22-29) mmol/L Anion Gap 15.7 (5-19) BUN 10 (6-20) mg/dL Creatinine 1.1 H (0.5-0.9) mg/dL GFR Calculation 51.2 L (90-130) mL/min Glucose 125 H (65-115) mg/dL Calculated Osmolal ity 279 L (285-295) mOsm/k g Lactic Acid (0.5-2.2) mmol/L Calcium 7.9 L (8.5-10.5) mg/dL Total Bilirubin 0.4 (0.15-1.2) mg/dL AST 29 (0-32) U/L ALT 9 (0-33) U/L Alkaline Phosphata se 76 (35-105) IU/L C-Reactive Protein 302.9 H (0.0-4.9) mg/L NT-Pro-B Natriuret Pep 1169 H (0-125) pg/mL Total Protein 6.3 L (6.6-8.7) g/dL Albumin 3.3 L (3.5-5.2) g/dL Globulin 3.0 (1.3-4.6) g/dL SARS-CoV-2 Ag (Rap id) (Negative) 04/03/21 04/03/21 04/03/21 Range/Units 23:25 23:25 23:40 WBC 6.5 (4.0-10.0) 10^3/ uL RBC 3.25 L (4.1-5.3) 10^6/u L Hgb 10.1 L (11.5-15.3) g/dL Hct 31.7 L (37.0-47.0) % MCV 97.5 (81-99) fL MCH 31.1 (28.0-34.0) pg MCHC 31.9 (30.0-36.0) g/dL RDW 16.8 H (12.1-15.1) % Plt Count 264 (130-400) 10^3/c mm MPV 11.6 H (7.4-10.4) fL Neut % (Auto) 72.6 % Lymph % (Auto) 10.6 % Irwin % (Auto) 10.9 % Eos % (Auto) 0.2 % Baso % (Auto) 0.3 % Neut # (Auto) 4.73 (1.8-7.7) 10^3/u L Lymph # (Auto) 0.7 L (0.8-4.8) 10^3/u L Irwin # (Auto) 0.7 (0.2-0.9) 10^3/u L Eos # (Auto) 0.0 (0.0-0.8) 10^3/u L Baso # (Auto) 0.0 (0.0-0.1) 10^3/u L Nucleated RBC % (a uto) 0.6 % Nucleated RBCs # 0.0 /100WBC D-Dimer (0-0.59) ug/mIFE U Specimen Type Sample Site ABG pH (7.35-7.45) ABG pCO2 (35-45) mmHg ABG pO2 (80.0-100.0) mmH g ABG HCO3 (22-26) mmol/L ABG Base Excess (-2.0-2.0) mmol/ L Rudy Test Hematocrit (37-47) % O2 Delivery Device O2 Liters/Min % Supervisor Baking ID Sodium (136-145) mmol/L Potassium (3.5-5.1) mmol/L Chloride (98-107) mmol/L Carbon Dioxide (22-29) mmol/L Anion Gap (5-19) BUN (6-20) mg/dL Creatinine (0.5-0.9) mg/dL GFR Calculation (90-130) mL/min Glucose (65-115) mg/dL Calculated Osmolal ity (285-295) mOsm/k g Lactic Acid 3.0 H (0.5-2.2) mmol/L Calcium (8.5-10.5) mg/dL Total Bilirubin (0.15-1.2) mg/dL AST (0-32) U/L ALT (0-33) U/L Alkaline Phosphata se (35-105) IU/L C-Reactive Protein (0.0-4.9) mg/L NT-Pro-B Natriuret Pep (0-125) pg/mL Total Protein (6.6-8.7) g/dL Albumin (3.5-5.2) g/dL Globulin (1.3-4.6) g/dL SARS-CoV-2 Ag (Rap id) Positive H (Negative) Imaging Data: CXR: Attestation: I personally reviewed and interpreted this imaging study as follows: Radiologist's impression: [address] [address] XRay Report Signed Patient: Angie Naranjo Unit #: [id number] : 1965 Age/Sex: 55 / F ADM Date: 04/03/21 Loc: ER Room/Bed: Attending Dr: Ordering Provider/Ordering MD: Ghazala Garrett MD Date of Service: 04/03/21 Procedure(s): XR chest 1V portable [id number] Accession Number(s): [id number] Report Number: [id number] PROCEDURE INFORMATION: Exam: XR Chest Exam date and time: 04/03/2021 11:24 PM Age: 55 years old Clinical indication: Shortness of breath; Patient HX: SOB and hypoxia. Diaphoretic. TECHNIQUE: Imaging protocol: XR of the chest. Views: 1 view. COMPARISON: CR XR chest 1V portable [id number] 11/07/2020 11:39 AM FINDINGS: Lungs: There is ill-defined opacity in the left lower lung. There is minimal opacity in the right lower lung. Pleural spaces: There is no pleural effusion or pneumothorax. Heart/Mediastinum: There is mild enlargement of the cardiac silhouette. Bones/joints: Bones are unremarkable. XR/XR chest 1V portable [id number] IMPRESSION: Bilateral lower lung opacities, left greater than right. Probable pneumonia. EKG Data: EKG 1: Attestation: I personally reviewed and interpreted this EKG as follows: EKG interpretation date: 04/03/21 EKG interpretation time: 23:30 Interpretation: nsr hr [address] or t wave abnormalities qrs 92 qtc 355 COVID Results: SARS-CoV-2 Antigen (Rapid) Positive (Negative) H 04/03/21 23:25 04/03/21 SARS-CoV-2 RNA (RT-PCR) Not detected (NOT DETECTED) 10/20/20 15:31 10/20/20 Nasal/Oral Coronavirus 2019 PCR Not detected 11/02/20 13:50 11/02/20 Discharge Plan Discharge Patient Disposition: Xfer Short-Term Hosp Clinical Impression: COVID-19 Condition: Stable Referrals: Genesis Ochoa MD [Primary Care Provider] - Coding Level of Care Code ED Bone Grinder for Chg Fwd Exam Comprehensive
[2021-04-03 23:42] VITALS: O2SAT 87
[2021-04-03] MEDS: acetaminophen 500 mg Tablet 1000 MG PO (23:48)
[2021-04-03 23:52] LABS: Basophils % 0.3 %; Eosinophils % 0.2 %; Hematocrit 31.7 % (37.0-47.0); Hemoglobin 10.1 g/dL (11.5-15.3); Lymphocytes # 0.7 10^3/uL (0.8-4.8); Lymphocytes % 10.6 %; Mean Corpuscular HGB Conc 31.9 g/dL (30.0-36.0); Mean Corpuscular Hemoglobin 31.1 pg (28.0-34.0); Mean Corpuscular Volume 97.5 fL (81-99); Mean Platelet Volume 11.6 fL (7.4-10.4); Monocytes # 0.7 10^3/uL (0.2-0.9); Monocytes % 10.9 %; Neutrophils # 4.73 10^3/uL (1.8-7.7); Neutrophils % 72.6 %; Nucleated Red Blood Cells % 0.6 %; Platelet Count 264 10^3/cmm (130-400); Red Blood Count 3.25 10^6/uL (4.1-5.3); Red Cell Distribution Width 16.8 % (12.1-15.1); White Blood Count 6.5 10^3/uL (4.0-10.0)
[2021-04-03 23:55] LABS: D Dimer 0.76 ug/mIFEU (0-0.59)
[2021-04-03] MEDS: albuterol 8 gm MDI 2 PUFF INHALATION (23:56)
[2021-04-03 23:57] VITALS: PULSE 90; RESP 20; O2SAT 90
[2021-04-04 00:05] LABS: Alanine Aminotransferase 9 U/L (0-33); Albumin Level 3.3 g/dL (3.5-5.2); Alkaline Phosphatase 76 IU/L (35-105); Anion Gap 15.7 (5-19); Aspartate Amino Transferase 29 U/L (0-32); Blood Urea Nitrogen 10 mg/dL (6-20); C Reactive Protein 302.9 mg/L (0.0-4.9); Calcium 7.9 mg/dL (8.5-10.5); Carbon Dioxide 28 mmol/L (22-29); Chloride 93 mmol/L (98-107); Glomerular Filtration Rate 51.2 mL/min (90-130); Glucose 125 mg/dL (65-115); NT Pro B Type Natriuretic Pept 1169 pg/mL (0-125); Osmolality Calculated 279 mOsm/kg (285-295); Sodium 134 mmol/L (136-145); Total Bilirubin 0.4 mg/dL (0.15-1.2); Total Protein 6.3 g/dL (6.6-8.7)
[2021-04-04 00:08] LABS: Potassium 2.7 mmol/L (3.5-5.1)
[2021-04-04 00:08] LABS: ABG PH Result 7.43 (7.35-7.45); Arterial Blood Gas Hematocrit 31.3 % (37-47); Base Excess ABG 7.9 mmol/L (-2.0-2.0); Blood Gas Allen Test Pos; Blood Gas Sample Site Radial, right; Blood Gas Sample Type Arterial; HCO3 ABG 33.3 mmol/L (22-26); Oxygen Device NC; PO2 ABG 54.7 mmHg (80.0-100.0)
[2021-04-04 00:18] LABS: Slide Review Slide Review Perform
[2021-04-04 00:33] LABS: SARS Covid-2 Antigen Positive (Negative)
[2021-04-04 01:22] LABS: Reflex Lactate Order REFLEX LACTIC ORDERD
[2021-04-04] MEDS: remdesivir 200 MG in sodium chloride 0.9% (100 ml) 100 ML 100 MG IV (02:05)
[2021-04-04] MEDS: potassium chloride ER 20 mEq Tablet 40 MEQ PO (02:05)
[2021-04-04 02:20] VITALS: BP 104/61; PULSE 75; RESP 14; O2SAT 94
--- NOTE | 2021-04-04 02:21 | PC.NURSE ---
20G IV to the left AC was infiltrated. IV discontinued.
[2021-04-04 02:54] LABS: Lactic Acid level (Lactate) 0.8 mmol/L (0.5-2.2)
--- NOTE | 2021-04-04 03:00 | PC.NURSE ---
report called to Rupa Santiago RN at [facility] at [phone]
== END 2021-04-04 02:50 | disposition short-term general hospital (02) ==
PROVIDERS: Emergency Provider Emergency Medicine; PCP Family Medicine
DX: U07.1 COVID-19 (principal); J12.82 Pneumonia due to coronavirus disease 2019; J44.9 Chronic obstructive pulmonary disease, unspecified; I10 Essential (primary) hypertension; E78.5 Hyperlipidemia, unspecified; F17.210 Nicotine dependence, cigarettes, uncomplicated
CPT/HCPCS: 36600; 71045; 80053; 82803; 83605; 83880; 85025; 85378; 86140; 87040; 87426; 93005; 94640; 96365; 96375; 99285; 99291; J1100; J3535

== ENCOUNTER 2021-09-06 06:00 | Outpatient (RCR) | payer MEDICARE, MEDICAID, SELFPAY | END 2021-09-07 23:59 | disposition home or self-care (01) | LOC: TPT 06:00 | PROVIDERS: PCP Family Medicine; Referring Provider Nurse Practitioner Family; Visit Provider Nurse Practitioner Family | DX: M54.9 Dorsalgia, unspecified (principal); G89.29 Other chronic pain | CPT/HCPCS: 97110; 97163 ==

== ENCOUNTER 2021-09-08 06:00 | Outpatient (RCR) | payer MEDICARE, MEDICAID, SELFPAY | END 2021-10-08 23:59 | disposition home or self-care (01) | LOC: TPT 06:00 | PROVIDERS: PCP Family Medicine; Referring Provider Nurse Practitioner Family; Visit Provider Nurse Practitioner Family | DX: M54.9 Dorsalgia, unspecified (principal) | CPT/HCPCS: 97110 ==

== ENCOUNTER 2021-11-25 23:02 | Emergency (ER) | payer MEDICARE, MEDICAID, SELFPAY ==
[2021-11-25 23:13] VITALS: BP 212/90; PULSE 93; RESP 18; TEMP 36.2; O2SAT 97; BMI 34.0
--- NOTE | 2021-11-26 00:37 | ED_ITS ---
HPI - Wound/Laceration General: Chief Complaint: Wound/Laceration Stated Complaint: Left Arm Cut Blood Thinner Time Seen by Provider: 11/25/21 23:20 History of Present Illness: Patient is a 55-year-old female comes to the ED with laceration to left forearm. Patient was opening up a jar of pickles and she had a knife in her hand and accidentally cut her left forearm. She is on blood thinners and has had trouble getting the bleeding to stop. She is rinsed it out and packed it and put a lot of pressure on laceration site to control bleeding. She is up-to-date with her tetanus. Denies any other injury and has full range of motion in left hand and wrist. Associated symptoms: Denies chills, fever(s), nausea or vomiting Review of Systems Const: Denies: fever(s), chills or fatigue Eyes: Denies: change in vision or eye discomfort ENMT: Denies: throat pain, odynophagia, nasal discharge or nasal congestion Card: Denies: chest pain, palpitations, edema, swelling of feet/ankles, dyspnea on exertion or orthopnea Resp: Denies: dyspnea, productive cough or non-productive cough GI: Denies: abdominal pain, nausea, vomiting, diarrhea, constipation or hematochezia : Denies: flank pain, dysuria or hematuria Musc: Denies: neck pain, back pain or extremity swelling Skin/Breast: Reports: new lesions (Laceration on left forearm.); Denies: rash Neuro: Denies: headache(s), numbness in extremities or weakness in extremities [facility] ED PFSH: Medical History Aortic regurgitation Eczema Essential (primary) hypertension Fibromyalgia Hyperlipidemia Inflammatory arthritis Seronegative rheumatoid arthritis Surgical History H/O breast biopsy H/O esophagogastroduodenoscopy (11/07/20) H/O thyroidectomy History of tonsillectomy Hx of cholecystectomy Status post colonoscopy (11/07/20) Family History Mother Rheumatoid arthritis Father Rheumatoid arthritis Leukemia Denies family history of Lupus Social History Smoking and tobacco status: current every day smoker Second hand smoke exposure: Yes Alcohol intake: never Marital status: Current occupational status: disabled History of recent travel: No Current gender identity: Female Physical Exam Const: COMMON NORMALS: no acute distress, patient oriented x3 and alert GENERAL APPEARANCE: cooperative and comfortable HENMT: COMMON NORMALS: normocephalic HEAD & SCALP: normocephalic MOUTH: Normal oral and palatal mucosa present THROAT: posterior oropharynx normal and uvula midline Neck/C-Spine: COMMON NORMALS: supple GENERAL: Yes normal visual inspection Resp: COMMON NORMALS: normal respiratory effort, No retractions, No use of accessory muscles and clear to auscultation bilaterally AUSCULTATION: clear to auscultation bilaterally Cardio: COMMON NORMALS: regular rate, regular rhythm, S1 normal heart sound present, S2 normal heart sound present, No gallops present (Cardio), No clicks present (Cardio), No murmurs present (Cardio) and Peripheral pulses 2+ throughout RATE: regular rate RHYTHM: regular rhythm HEART SOUNDS: S1 normal heart sound present and S2 normal heart sound present PERIPHERAL PULSES: Peripheral pulses 2+ throughout GI: COMMON NORMALS: Normal to inspection, nondistended, normoactive bowel sounds present, Soft to palpation, non-tender and no masses PALPATION: Yes Soft to palpation : COMMON NORMALS: Yes no CVA tenderness BLADDER/KIDNEY EXAM: Yes no CVA tenderness Back/Pelvis: COMMON NORMALS: no CVA tenderness Extremity: NARRATIVE EXTREMITY EXAM: Left forearm?1.5 cm superficial linear laceration. Bleeding controlled. No foreign body or contaminants seen. Neuro: COMMON NORMALS: patient oriented x3 and moves all extremities S ENSORIUM/ORIENTATION: Yes alert Skin: NARRATIVE SKIN EXAM: Left forearm?1.5 cm superficial linear laceration. Bleeding controlled. No foreign body or contaminants seen. GENERAL SKIN EXAM: dry skin Procedures Laceration Laceration 1: Site: upper extremity (forearm) Side (If applicable): left Size (cm): 1.5 Description: linear Depth: simple, single layer Local Anesthetic: lidocaine 1% and with epi Pre-repair: irrigated extensively (With normal saline.) Skin layer closed with: nylon Size (cm): 4-0 Number of sutures: 3 Technique: simple, interrupted Course Vital Signs: Vital signs: Vital Signs Temperature 97.2 F L 20/22 23:13 Pulse Rate 93 03/20/22 23:13 Respiratory Rate 18 11/25/21 23:13 Blood Pressure 212/90 11/25/21 23:13 Pulse Oximetry 97 11/25/21 23:13 MDM - Wound/Laceration Medical Decision Making Patient is a 55-year-old female comes to the ED with a laceration to left forearm. Patient was opening a jar of pickles and had a knife in her hand and accidentally cut her left forearm. Patient is on blood thinner and has been having trouble controlling the bleeding. Vitals are stable. Patient appears nontoxic in no acute distress. She has a 1.5 cm linear laceration to left forearm. Bleeding appears controlled. Nurse irrigated laceration site extensively with normal saline. Lidocaine 2% with epi was used as local. 3 sutures were placed in the laceration to close it. Patient tolerated procedure well. Patient was discharged home and told to have sutures removed in the next 7 to 10 days. Return to ED precautions given. Patient understood and agree with plan. Discharge Plan Discharge Patient Disposition: Home Clinical Impression: Laceration Condition: Stable Prescriptions: No Action triamcinolone acetonide 0.1 % ointment 1 applic TOPICAL BID Qty: 30 3RF Rx Instructions: apply to affected area as needed Trelegy Ellipta 100-62.5-25 mcg blister with device 1 inh INHALATION DAILY Qty: 28 3RF Rx Instructions: AT 0900 nitroglycerin 0.4 mg tablet, sublingual 0.4 mg sublingual Q5M PRN (Reason: chest pain) Qty: 30 6RF Rx Instructions: do not exceed 3 doses per episode pantoprazole 40 mg tablet,delayed release (DR/EC) 40 mg PO DAILY Qty: 30 4RF Rx Instructions: An Appt and labs will need to be done before any further refills. atorvastatin 40 mg tablet 40 mg PO DAILY Qty: 30 4RF Rx Instructions: AT 2100 carvedilol 25 mg tablet 25 mg PO BID Qty: 60 4RF Rx Instructions: AT 0900,2100 clopidogrel 75 mg tablet 75 mg PO QDAY Qty: 30 5RF Hold Instructions: Resume on 09/27/20. hold until you see primary care in 1 week Rx Instructions: AT 0900 oxycodone-acetaminophen [Percocet] 7.5-325 mg tablet 1 tab PO Q6H PRN0RF albuterol sulfate 2.5 mg /3 mL (0.083 %) solution for nebulization 2.5 mg INHALATION Q4H PRN (Reason: shortness of breath or wheezing) Qty: 90 3RF (DME) Nebulizer machine See Rx Instructions .Route .MEDSUPPLY Qty: 1 0RF Rx Instructions: As directed levothyroxine 100 mcg tablet 100 mcg PO DAILY Qty: 90 0RF fenofibrate 160 mg tablet 160 mg PO DAILY Qty: 90 0RF hydroxyzine HCl 25 mg tablet 25 mg PO QID PRN (Reason: anxiety) Qty: 120 1RF furosemide [Lasix] 20 mg tablet 20 mg PO DAILY Qty: 30 1RF Rx Instructions: AT 0900 clonidine HCl 0.1 mg tablet 0.1 mg PO DAILY PRN (Reason: hypertensive emergency) Qty: 90 1RF Rx Instructions: AT 0900,2100 cyclobenzaprine 10 mg tablet 10 mg PO BID PRN (Reason: muscle spasm) Qty: 60 1RF potassium chloride 20 mEq tablet extended release 20 meq PO DAILY Qty: 90 2RF Rx Instructions: AT 0900 albuterol sulfate [Ventolin HFA] 90 mcg/actuation HFA aerosol inhaler 2 puff INHALATION QID PRN (Reason: shortness of breath or wheezing) Qty: 18 3RF cholecalciferol (vitamin D3) 50 mcg (2,000 unit) tablet 2,000 unit PO DAILY Qty: 30 1RF Rx Instructions: AT 0900 verapamil 180 mg capsule,ext rel. pellets 24 hr 180 mg PO DAILY Qty: 90 1RF Discharge Orders: Discharge ED (Routine); Ordered 11/26/21 Ordered By: Pipe Tucker Referrals: Afia Barrett NP [Primary Care Provider] - Discharge Diet: Regular Discharge Activity: Increase activity as tolerated Patient Instructions: Laceration (ED) Activity Restrictions/Additional Instructions: Keep laceration site clean and dry for the next 48 hours. Then after that you can clean and re-bandage daily. Watch for signs of infection such as redness, warmth, increased tenderness and puslike drainage. If you see the signs of infection return to the ED, urgent care or PCP for reevaluation. call your PCP to schedule a follow-up appointment for reevaluation and suture removal in about 7-10 days. Continue taking all home meds. Follow discharge plans as discussed. You can return to the ED if symptoms worsen. Coding Level of Care Code ED Shift Leader for Dom Fwd Exam Comprehensive
[2021-11-26] MEDS: LORazepam 1 mg Tablet PO (00:58)
== END 2021-11-26 01:41 | disposition home or self-care (01) ==
PROVIDERS: Emergency Provider Physician Assistant; PCP Nurse Practitioner Family
DX: S51.812A Laceration without foreign body of left forearm, initial encounter (principal); Z79.02 Long term (current) use of antithrombotics/antiplatelets; I10 Essential (primary) hypertension; E78.5 Hyperlipidemia, unspecified; F17.210 Nicotine dependence, cigarettes, uncomplicated; W26.0XXA Contact with knife, initial encounter
CPT/HCPCS: 12001; 99283

== ENCOUNTER → 2021-11-26 14:12 | Outpatient (BNVA) | payer MEDICARE, MEDICAID, SELFPAY | PROVIDERS: PCP Nurse Practitioner Family; Visit Provider Internal Medicine Pulmonary Disease | DX: R91.1 Solitary pulmonary nodule (principal); U09.9 Post COVID-19 condition, unspecified; J44.1 Chronic obstructive pulmonary disease with (acute) exacerbation; M06.00 Rheumatoid arthritis without rheumatoid factor, unspecified site; I25.10 Atherosclerotic heart disease of native coronary artery without angina pectoris; R93.89 Abnormal findings on diagnostic imaging of other specified body structures; F17.210 Nicotine dependence, cigarettes, uncomplicated; E78.5 Hyperlipidemia, unspecified; K21.9 Gastro-esophageal reflux disease without esophagitis; F32.A Depression, unspecified; E03.9 Hypothyroidism, unspecified; I10 Essential (primary) hypertension | CPT/HCPCS: 99204 ==

== ENCOUNTER → 2021-12-11 13:13 | Outpatient (BNVA) | payer MEDICARE, MEDICAID, SELFPAY | PROVIDERS: PCP Nurse Practitioner Family; Visit Provider Internal Medicine Rheumatology | DX: M06.00 Rheumatoid arthritis without rheumatoid factor, unspecified site (principal); M79.7 Fibromyalgia; R93.89 Abnormal findings on diagnostic imaging of other specified body structures; Z79.899 Other long term (current) drug therapy; Z86.718 Personal history of other venous thrombosis and embolism; Z71.85 Encounter for immunization safety counseling | CPT/HCPCS: 99214 ==

== ENCOUNTER → 2021-12-17 11:49 | Outpatient (BNVA) | payer MEDICARE, MEDICAID, SELFPAY | PROVIDERS: PCP Nurse Practitioner Family; Visit Provider Social Worker | DX: F43.0 Acute stress reaction (principal); Z63.4 Disappearance and death of family member | CPT/HCPCS: 90791 ==

== ENCOUNTER 2022-01-01 11:34 | Outpatient (CLI) | payer MEDICARE, MEDICAID, SELFPAY ==
--- NOTE | 2022-01-01 12:00 | CT_ITS ---
WS: [id number] CT CHEST TECHNIQUE: Noncontrast CT of the chest with coronal and sagittal reformatted images. CLINICAL INFORMATION: f/u lung nodule COMPARISON: CT chest September 02, 2020 DLP: 759.[address] scans at [facility] use at least one of these dose optimization techniques: automated e xposure control; mA and/or kV adjustment per patient size (includes targeted exams where dose is matc hed to clinical indication); or iterative reconstruction. FINDINGS: Moderate chronic emphysematous changes. Previously described RIGHT pleural effusion with consolidativ e atelectasis in RIGHT lower lobe has resolved. Masslike consolidation RIGHT lower lobe has resolved. No suspicious RIGHT lower lobe parenchymal abnormalities. Hazy noncalcified nodule subpleural LEFT lower lobe measuring 5 mm. Recommend 6 month follow-up chest CT. This was not definitely present on the prior examination but may have been partially obscured by infiltrates and pleural fluid. Normal caliber thoracic aorta. Mild aortic calcification. Coronary calcification. No axillary lymphad enopathy. No mediastinal or hilar lymphadenopathy. Adrenal glands are normal. Cholecystectomy. RIGHT hepatic cyst. LEFT renal cyst measuring 1.5 CM. Non contrast spleen appears normal. Small esophageal hiatal hernia. Small upper abdominal fat-containing epigastric hernia eccentric to the RIGHT is not included on the prior examination. Normal thoracic sp ine. CT/CT chest wo con [id number] IMPRESSION: 1. Previous described RIGHT lower lobe pleural effusion and consolidative mass has resolved. No suspicious pulmonary opacities in RIGHT lower lobe today. 2. Small subpleural nodule measuring 5 mm in the LEFT lower lobe posteriorly. Recommend 6 month follow-up chest CT. 3. No mediastinal or hilar lymphadenopathy. 4. Small esophageal hiatal hernia. 5. Small fat-containing epigastric hernia RIGHT upper abdomen not previously i ncluded on the prior examination.
== END 2022-01-01 11:35 | disposition home or self-care (01) ==
LOC: RAD 11:38
PROVIDERS: PCP Nurse Practitioner Family; Visit Provider Internal Medicine Pulmonary Disease
DX: R91.1 Solitary pulmonary nodule (principal); K44.9 Diaphragmatic hernia without obstruction or gangrene
CPT/HCPCS: 71250

== ENCOUNTER → 2022-01-04 08:31 | Outpatient (BNVA) | payer MEDICARE, MEDICAID, SELFPAY | PROVIDERS: PCP Nurse Practitioner Family; Visit Provider Psychiatry & Neurology Psychiatry | DX: F43.9 Reaction to severe stress, unspecified (principal) | CPT/HCPCS: 99204 ==

== ENCOUNTER 2022-01-20 03:00 | Observation (INO) | payer MEDICARE, MEDICAID, SELFPAY ==
[2022-01-20] VITALS (23 sets, daily range): BP systolic 112–165; BP diastolic 59–79; PULSE 59–86; RESP 12–22; TEMP 36.5–37.6; O2SAT 92–99; BMI 33.6
--- NOTE | 2022-01-20 03:23 | XRR_ITS ---
PROCEDURE INFORMATION: Exam: XR Chest Exam date and time: 01/20/2022 3:33 AM Age: 56 years old Clinical indication: Sternal or substernal pain; Additional info: Cp TECHNIQUE: Imaging protocol: XR of the chest. Views: 1 view. COMPARISON: CT chest con [id number] 01/01/2022 12:01 PM FINDINGS: Lungs: There is mild indistinctness of the pulmonary vasculature and some hazy and strandy opacities present in the lower hemithoraces, findings that could represent mild pulmonary edema. Pleural spaces: Unremarkable. No pleural effusion. No pneumothorax. Heart/Mediastinum: Unremarkable. No cardiomegaly. Bones/joints: Unremarkable. XR/XR chest 1V portable [id number] IMPRESSION: 1. Mild indistinctness of the pulmonary vasculature with hazy in strandy opacities present in the lower hemithoraces, findings that could represent mild pulmonary edema.
--- NOTE | 2022-01-20 03:23 | ECG_ITS ---
[facility] Test Date: 2022-01-20 Pat Name: Angie Naranjo Department: Room: 252 Gender: Female Dealer Compliance Representative: : 1965 Requested By: Imtiaz Betancur Order Number: [id number] Asa MD: Lynne Willett M.D. Measurements Intervals [place] Rate: 79 P: 58 CA: 167 QRS: -6 QRSD: 88 T: 65 QT: 381 QTc: 439 Interpretive Statements SINUS RHYTHM NONSPECIFIC T-WAVE ABNORMALITY Compared to ECG 04/03/2021 23:30:53 Myocardial infarct finding no longer present Possible ischemia no longer present T-wave abnormality still present Electronically Signed On 01-20-2022 13:24:38 CDT by Lynne Willett M.D. [id number] [email or web address]
[2022-01-20 03:36] LABS: Basophils % 0.3 %; Eosinophils # 0.2 10^3/uL (0.0-0.8); Eosinophils % 1.6 %; Hematocrit 41.3 % (37.0-47.0); Lymphocytes # 2.1 10^3/uL (0.8-4.8); Lymphocytes % 18.8 %; Mean Corpuscular HGB Conc 31.5 g/dL (30.0-36.0); Mean Corpuscular Hemoglobin 29.7 pg (28.0-34.0); Mean Corpuscular Volume 94.3 fl (81-99); Mean Platelet Volume 10.7 fL (7.4-10.4); Monocytes # 1.4 10^3/uL (0.2-0.9); Monocytes % 12.3 %; Neutrophils # 7.39 10^3/uL (1.8-7.7); Neutrophils % 66.8 %; Nucleated Red Blood Cells % 0 %; Platelet Count 265 10^3/cmm (130-400); Red Blood Count 4.38 10^6/uL (4.1-5.3); Red Cell Distribution Width 14.1 % (12.1-15.1); White Blood Count 11.1 10^3/uL (4.0-10.0)
[2022-01-20 03:48] LABS: Troponin(5th) Baseline 9 ng/L (0-10)
[2022-01-20 03:55] LABS: Alanine Aminotransferase 19 U/L (0-33); Albumin Level 4.2 g/dL (3.5-5.2); Alkaline Phosphatase 103 IU/L (35-105); Blood Urea Nitrogen 4 mg/dL (6-20); Calcium 9.3 mg/dL (8.5-10.5); Carbon Dioxide 35 mmol/L (22-29); Chloride 92 mmol/L (98-107); Globulin 2.5 g/dL (1.3-4.6); Glomerular Filtration Rate 102.7 mL/min (90-130); Glucose 113 mg/dL (65-115); NT Pro B Type Natriuretic Pept 302 pg/mL (0-125); Osmolality Calculated 280 mOsm/kg (285-295); Sodium 136 mmol/L (136-145); Total Bilirubin 0.4 mg/dL (0.15-1.2); Total Protein 6.7 g/dL (6.6-8.7)
[2022-01-20 03:57] LABS: Anion Gap 12.7 (5-19); Aspartate Amino Transferase 25 U/L (0-32); Potassium 3.7 mmol/L (3.5-5.1)
[2022-01-20] MEDS: ipratropium-albuterol 3 mL Neb INHALATION ×5 (03:58→20:10)
[2022-01-20] MEDS: ondansetron 2 mg/ML SDV 2 mL 4 MG IVP (04:18)
[2022-01-20] MEDS: fentaNYL 50 mcg/mL INJ 2mL IVP (04:19)
--- NOTE | 2022-01-20 04:25 | ED_ITS ---
HPI - Chest Pain General: Chief Complaint: Chest Pain Stated Complaint: CP Time Seen by Provider: 01/20/22 03:13 Source: patient History of Present Illness: 56-year-old female with a history of COPD and valvular disease she tells me. She presents with 3 days of worsening chest pain with shortness of breath. Pain is somewhat pleuritic in nature. She has had a cough. She uses oxygen at 4 L at home. She has had COPD, pneumonia, COVID-19 in the past. MD complaint: chest pain Pertinent past history: other Onset (ago): day(s) Timing of current episode: episodic Prior episodes: Yes Onset: during rest Pain location: substernal Pain radiation: back Quality: tightness and sharp Exacerbating factors: exertion Associated symptoms: Reports dyspnea and palpitations; Deny abdominal pain, fever(s), leg edema, nausea or vomiting Treatment prior to arrival: oxygen Review of Systems Const: Denies: fever(s) ENMT: Denies: throat pain Card: Reports: chest pain, palpitations, dyspnea on exertion and orthopnea Resp: Reports: dyspnea, productive cough and non-productive cough GI: Denies: abdominal pain, nausea or vomiting PFSH ED PFSH: Medical History Aortic regurgitation Bereavement counseling Eczema Essential (primary) hypertension Fibromyalgia High risk medication use Hyperlipidemia Immunization counseling Inflammatory arthritis Psychiatric care Seronegative rheumatoid arthritis Surgical History H/O breast biopsy H/O esophagogastroduodenoscopy (11/07/20) H/O thyroidectomy History of tonsillectomy Hx of cholecystectomy Status post colonoscopy (11/07/20) Family History Mother Rheumatoid arthritis Father Rheumatoid arthritis Leukemia Denies family history of Lupus Social History Smoking and tobacco status: current every day smoker cigarettes Packs smoked per day: 0.25 Years cigarettes smoked: 25 [ Other cigarette details: 2ppd x 25 years, currently trying to quit] Quit status (tobacco): not considering quitting Second hand smoke exposure: Yes Alcohol intake: never Marital status: Current occupational status: disabled History of recent travel: No Current gender identity: Female Physical Exam Const: GENERAL APPEARANCE: in distress, anxious, ill appearing and frail appearing NUTRITIONAL APPEARANCE: obese HENMT: COMMON NORMALS: normocephalic, atraumatic and Normal external nose present HEAD & SCALP: normocephalic and atraumatic FACE & SINUS: normal facial exam NOSE: Normal external nose present Eye: COMMON NORMALS: Equal, round and reactive pupils present and EOMs intact bilaterally PUPIL: Yes Equal, round and reactive pupils present Neck/C-Spine: GENERAL: Yes trachea midline Chest: CHEST: Yes Symmetrical chest wall rise and Yes tenderness (Diffuse) Resp: EFFORT & INSPECTION: Yes symmetric chest movement, Yes tachypneic and Yes respiratory distress AUSCULTATION: wheezes and diminished lung sounds Cardio: COMMON NORMALS: regular rate and regular rhythm RATE: regular rate RHYTHM: regular rhythm GI: COMMON NORMALS: Normal to inspection, nondistended, normoactive bowel sounds present Extremity: GENERAL: Yes edema (Mild) Neuro: FUNMI COMA SCALE: document GCS findings [place] coma scale eye opening: Spontaneous [place] coma scale verbal response: Orientated [place] coma scale motor response: Obey commands Funmi coma scale total score: 15 Psych: COMMON NORMALS: cooperative Course Consultations: Consultation #1: Eleanor Time: 05:04 Vital Signs: Vital signs: Vital Signs Temperature 98.5 F 01/20/22 03:04 Pulse Rate 77 01/20/22 05:08 Respiratory Rate 18 01/20/22 04:19 Blood Pressure 114/69 01/20/22 03:04 Pulse Oximetry 94 01/20/22 05:08 MDM - Chest Pain Medical Decision Making 56-year-old lady with chest discomfort and shortness of breath. Her blood cell count is 11.1. Hemoglobin is normal. Creatinine is 0.6. Her troponin is 9. EKG shows a sinus rhythm with normal intervals. No ST elevation. Her BNP is only 302. She is quite wheezy on exam, not moving much air. She is given a breathing treatment. Blood gas shows respiratory acidosis that is significant. She is awake and talking however. She will be placed on BiPAP. She also has received Solu-Medrol here. She will come in for hypoxic hypercapnic respiratory failure. Hospitalist has been notified Lab Data : 01/20/22 03:00 01/20/22 03:00 Radiology Impressions Chest X-Ray 01/20/22 03:23 IMPRESSION: 1. Mild indistinctness of the pulmonary vasculature with hazy in strandy opacities present in the lower hemithoraces, findings that could represent mild pulmonary edema. Laboratory Results WBC 11.1 10^3/uL (4.0-10.0) H 01/20/22 03:00 RBC 4.38 10^6/uL (4.1-5.3) 01/20/22 03:00 Hgb 13.0 g/dL (11.5-15.3) 01/20/22 03:00 Hct 41.3 % (37.0-47.0) 01/20/22 03:00 MCV 94.3 fl (81-99) 01/20/22 03:00 MCH 29.7 pg (28.0-34.0) 01/20/22 03:00 MCHC 31.5 g/dL (30.0-36.0) 01/20/22 03:00 RDW 14.1 % (12.1-15.1) 01/20/22 03:00 Plt Count 265 10^3/cmm (130-400) 01/20/22 03:00 MPV 10.7 fL (7.4-10.4) H 01/20/22 03:00 Neut % (Auto) 66.8 % 01/20/22 03:00 Lymph % (Auto) 18.8 % 01/20/22 03:00 Hanson % (Auto) 12.3 % 01/20/22 03:00 Eos % (Auto) 1.6 % 01/20/22 03:00 Baso % (Auto) 0.3 % 01/20/22 03:00 Neut # (Auto) 7.39 10^3/uL (1.8-7.7) 01/20/22 03:00 Lymph # (Auto) 2.1 10^3/uL (0.8-4.8) 01/20/22 03:00 Hanson # (Auto) 1.4 10^3/uL (0.2-0.9) H 01/20/22 03:00 Eos # (Auto) 0.2 10^3/uL (0.0-0.8) 01/20/22 03:00 Baso # (Auto) 0.0 10^3/uL (0.0-0.1) 01/20/22 03:00 Nucleated RBC % (auto) 0 % 01/20/22 03:00 Nucleated RBCs # 0.0 /100WBC 01/20/22 03:00 Sodium 136 mmol/L (136-145) 01/20/22 03:00 Potassium 3.7 mmol/L (3.5-5.1) 01/20/22 03:00 Chloride 92 mmol/L (98-107) L 01/20/22 03:00 Carbon Dioxide 35 mmol/L (22-29) H 01/20/22 03:00 Anion Gap 12.7 (5-19) 01/20/22 03:00 BUN 4 mg/dL (6-20) L 01/20/22 03:00 Creatinine 0.6 mg/dL (0.5-0.9) 01/20/22 03:00 GFR Calculation 102.7 mL/min (90-130) 01/20/22 03:00 Glucose 113 mg/dL (65-115) 01/20/22 03:00 Calculated Osmolality 280 mOsm/kg (285-295) L 01/20/22 03:00 Calcium 9.3 mg/dL (8.5-10.5) 01/20/22 03:00 Total Bilirubin 0.4 mg/dL (0.15-1.2) 01/20/22 03:00 AST 25 U/L (0-32) 01/20/22 03:00 ALT 19 U/L (0-33) 01/20/22 03:00 Alkaline Phosphatase 103 IU/L (35-105) 01/20/22 03:00 Troponin T Baseline 9 ng/L (0-10) 01/20/22 03:00 NT-Pro-B Natriuret Pep 302 pg/mL (0-125) H 01/20/22 03:00 Total Protein 6.7 g/dL (6.6-8.7) 01/20/22 03:00 Albumin 4.2 g/dL (3.5-5.2) 01/20/22 03:00 Globulin 2.5 g/dL (1.3-4.6) 01/20/22 03:00 Critical Care Time Critical Care Time: Critical Care Time: Yes Total Critical Care Time: 35 Attestation: This case had a high probability of a clinically significant, sudden, or life threatening deterioration of this patient's condition which required my full and direct attention, intervention and personal management. Time is independent of any procedures performed Discharge Plan Discharge Patient Disposition: Admitted As Inpatient Clinical Impression: COPD (chronic obstructive pulmonary disease) Respiratory failure Qualifiers: Chronicity: acute on chronic Respiratory failure complication: hypoxia and hypercapnia Qualified Code(s): J96.21 - Acute and chronic respiratory failure with hypoxia Condition: Fair Coding Level of Care Code ED T[place] Coiling Machine Setter for g Fwd Exam Comprehensive
--- NOTE | 2022-01-20 05:23 | ECG_ITS ---
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 Measurements Intervals [place] Rate: 82 P: 59 WI: 167 QRS: -12 QRSD: 89 T: 62 QT: 329 QTc: 385 Interpretive Statements SINUS RHYTHM SEPTAL MYOCARDIAL INFARCTION , OF INDETERMINATE AGE [40+ ms Q WAVE IN V1/V2] Compared to ECG 04/03/2021 23:30:53 T-wave abnormality no longer present Possible ischemia no longer present Myocardial infarct finding still present Electronically Signed On 01-20-2022 13:27:56 CDT by Lynne Willett M.D. [id number]
--- NOTE | 2022-01-20 05:27 | P.HP_ITS ---
Providers/Chief Complaint Admitting Physician: Guido Webster DO Primary Care Provider: Afia Barrett NP Chief Complaint: CP History of Present Illness The patient is a 56-year-old female with known history of COPD for which she is O2 dependent 4 L via continues to smoke and has known history of mild to moderate area regurgitation who presents with chief complaint of 2 day history of gradually worsening dyspnea. She admits to onset of chest pain with the dyspnea which she states has been constant its worst rated 9 out of 10 and currently rates 7 out of 10. She states that the chest pain is in the substernal area and radiates to her left shoulder. She admits to lightheadednes s, dizziness, diaphoresis, palpitations, sense of rapid heartbeat, sensation ureter heartbeat. She denies fever, rigors, nausea, vomiting, cough, wheeze, abdominal pain, diarrhea, myalgia, peripheral edema. Has a history of fibromyalgia and appears to exaggerate her symptoms. She presents for further evaluation Review of Systems General: Reports: 10 or more systems reviewed and unremarkable except in HPI and below Medications/Allergies Home Medications Medication Instructions Recorded Confirmed Last Taken Type albuterol sulfate 2.5 mg (3 mL) INHALATION Q4H PRN 10/09/20 01/18/22 Unknown Rx #90 ml atorvastatin 40 mg tablet 40 mg PO DAILY #30 tab 12/05/20 01/18/22 Unknown Rx carvedilol 25 mg tablet 25 mg PO BID #60 tab 12/05/20 01/18/22 Unknown Rx clopidogrel 75 mg tablet 75 mg PO QDAY #30 tab 12/05/20 01/18/22 Unknown Rx pantoprazole 40 mg tablet,delayed 40 mg PO DAILY #30 tab 12/05/20 01/18/22 Unknown Rx release Nebulizer machine #1 ea 12/06/20 01/18/22 Unknown Rx fenofibrate 160 mg tablet 160 mg PO DAILY #90 tab 12/15/20 01/18/22 Unknown Rx levothyroxine 100 mcg tablet 100 mcg PO DAILY #90 tab 12/15/20 01/18/22 Unknown Rx hydroxyzine HCl 25 mg tablet 25 mg PO QID PRN #120 tab 01/17/21 01/18/22 Unknown Rx furosemide 20 mg tablet (Lasix) 20 mg PO DAILY #30 tab 01/29/21 01/18/22 Unknown Rx nitroglycerin 0.4 mg sublingual 0.4 mg SUBLINGUAL Q5M PRN #30 tab 01/31/21 01/18/22 Unknown Rx tablet clonidine HCl 0.1 mg tablet 0.1 mg PO DAILY PRN #90 tab 03/06/21 01/18/22 Unknown Rx potassium chloride 20 mEq 20 meq PO DAILY #90 tab 07/23/21 01/18/22 Unknown Rx tablet,extended release cholecalciferol (vitamin D3) 50 2,000 unit PO DAILY #30 tab 10/05/21 01/18/22 Unknown Rx mcg (2,000 unit) tablet verapamil 180 mg 24 hr 180 mg PO DAILY #90 cap 10/31/21 01/18/22 Unknown Rx capsule,extended release prednisone 10 mg tablet 10 mg PO DAILY 12/11/21 01/18/22 Unknown History triamcinolone acetonide 0.1 % See Rx Instructions .ROUTE 12/26/21 01/18/22 Unknown Rx topical ointment .COMPLEX #30 g cyclobenzaprine 10 mg tablet 10 mg PO BID PRN tab 01/04/22 01/18/22 Unknown History fluoxetine 20 mg capsule (Prozac) 20 mg PO BID 01/04/22 01/18/22 Unknown History milnacipran 12.5 mg (5)-25 See Rx Instructions PO PER PKG DIR 01/04/22 01/18/22 Unknown History mg(8)-50mg(42) tablets in a dose ea pack (Savella) milnacipran 50 mg tablet (Savella) 50 mg PO BID tab 01/04/22 01/18/22 Unknown History methotrexate sodium 2.5 mg tablet See Rx Instructions PO Q7D #30 tab 01/07/22 01/18/22 Unknown Rx albuterol sulfate 90 mcg/actuation See Rx Instructions .ROUTE 01/18/22 01/18/22 Unknown Rx aerosol inhaler .COMPLEX #8.5 g alprazolam 0.25 mg tablet (Xanax) 0.25 mg PO DAILY #7 tab 01/18/22 01/18/22 Unknown Rx fluticasone fur. 100 mcg-umeclid 1 inh INHALATION DAILY #28 each 01/18/22 01/18/22 Unknown Rx 62.5 mcg-vilant 25 mcg inhalat.powder (Trelegy Ellipta) Allergies Allergy/AdvReac Type Severity Reaction Status Date / Time sertraline [From Zoloft] Allergy Unknown Unknown Verified 01/18/22 10:19 aspirin Allergy Unknown Verified 01/18/22 10:19 buspirone [From BuSpar] Allergy Unknown Verified 01/18/22 10:19 codeine Allergy Unknown Verified 01/18/22 10:19 duloxetine Allergy Unknown Verified 01/18/22 10:19 gabapentin [From Neurontin] Allergy Unknown Verified 01/18/22 10:19 ibuprofen Allergy UNKNOWN Verified 01/18/22 10:19 iodine Allergy Unknown Verified 01/18/22 10:19 ketorolac [From Toradol] Allergy UNKNOWN Verified 01/18/22 10:19 lisinopril Allergy Unknown Verified 01/18/22 10:19 Penicillins Allergy Unknown Verified 01/18/22 10:19 pregabalin [Lyrica] Allergy Unknown Verified 01/18/22 10:19 Sulfa (Sulfonamide Allergy Unknown Verified 01/18/22 10:19 Antibiotics) tizanidine Allergy Unknown Verified 01/18/22 10:19 tramadol Allergy Unknown Verified 01/18/22 10:19 varenicline [From Chantix] Allergy UNKNOWN Verified 01/18/22 10:19 venlafaxine Allergy Unknown Verified 01/18/22 10:19 PFSH Acute PFSH: Medical History Aortic regurgitation Bereavement counseling Eczema Essential (primary) hypertension Fibromyalgia High risk medication use Hyperlipidemia Immunization counseling Inflammatory arthritis Psychiatric care Seronegative rheumatoid arthritis Surgical History H/O breast biopsy H/O esophagogastroduodenoscopy (11/07/20) H/O thyroidectomy History of tonsillectomy Hx of cholecystectomy Status post colonoscopy (11/07/20) Family History Mother Rheumatoid arthritis Father Rheumatoid arthritis Leukemia Denies family history of Lupus Social History Smoking and tobacco status: current every day smoker cigarettes Packs smoked per day: 0.25 Years cigarettes smoked: 25 [ Other cigarette details: 2ppd x 25 years, currently trying to quit] Quit status (tobacco): not considering quitting Second hand smoke exposure: Yes Alcohol intake: never Marital status: Current occupational status: disabled History of recent travel: No Current gender identity: Female Vitals/I&O/Wt Last Vital Signs Temp 98.5 F 01/20/22 03:04 Pulse 77 01/20/22 05:08 Resp 18 01/20/22 04:19 BP 114/69 01/20/22 03:04 Pulse Ox 94 01/20/22 05:08 Weight last 48 hrs Weight 83.461 kg Physical Exam Narrative: General: -Alert -No acute distress -No dyspnea -No tachypnea Head: -Atraumatic -Normocephalic Eyes: -Pupils equally round and reactive to light and accommodation -Extraocular muscles intact Neurological: -Cranial nerves II-XII intact Neck: -No jugular venous distention -No thyromegaly -No cervical lymphadenopathy Heart: -Regular rate -Regular rhythm -No murmurs -No gallops -No rubs Lungs: -No wheeze -No rhonchi -No rales ? Abdomen: -Normal bowel sounds in all four quadrants -No rebound -No guarding -No tenderness Extremities: -2/4 pulse in all four extremities -No clubbing -No cyanosis -No edema -No calf tenderness present bilaterally -Negative Dena?s sign bilaterally Musculoskeletal: -5/5 bilateral upper extremity strength -5/5 bilateral lower extremity strength -Sensorium of bilateral upper extremities are equal and intact -Sensorium of bilateral lower extremities are equal and intact ? Additional Details / Additional Findings / Exceptions / Miscellaneous: Data : 01/20/22 03:00 01/20/22 03:00 A&P Assessment and plan (1) Respiratory failure: Status: Acute Qualifiers: Chronicity: acute on chronic Respiratory failure complication: hypoxia and hypercapnia Qualified Code(s): J96.21 - Acute and chronic respiratory failure with hypoxia; J96.22 - Acute and chronic respiratory failure with hypercapnia Plan Dyspnea secondary to COPD exacerbation for which the patient's O2 dependent 4 L via continues to smoke as well as CHF exacerbation COPD exacerbation, patient typically O2 dependent 4 L. Solu-Medrol 60 Mill cans IV every 8 hours plus DuoNeb every 4 hours Query pulmonary edema. Patient has known history of mild to moderate aortic regurgitation. Will monitor patient on telemetry and checks her cardiac enzymes. Strict I/O. Daily weight. Will recheck EKG on the morning of January 20, 2022. Echocardiogram pending. Lasix 20 Mill grams IV every 8 hours Plus Coreg 25 Mill grams by mouth twice a day Fibromyalgia History of thyroidectomy with resultant hypothyroidism Depression Chest pain, rule out ACS. Patient has known history of coronary artery disease.I have a low index of suspicion for ACS. I feel that the patient's symptoms are secondary to see her CHF and COPD exacerbation. Monitor patient on telemetry and checks her cardiac enzymes. Recheck EKG on the morning of January 20, 2022. Plavix 75 Mill cans by mouth daily plus Lipitor 40 Mill cans by mouth daily at bedtime plus Coreg 25 Mill grams by mouth twice a day plus Imdur 60 Mill cans by mouth daily Seronegative rheumatoid arthritis Muscle spasm Anxiety GERD. Protonix 40 Mill grams by mouth daily Hyperlipidemia. Lipitor 40 Mill grams by mouth daily at bedtime Hypertension. Lasix 20 Mill grams IV 3 times a day Plus cord 25 Mill grams by mouth twice a day plus Imdur 60 Mill grams by mouth daily Obesity. The patient becomes regarding lifestyle modification Smoker. The patient will be counseled regarding smoking cessation Diverticulosis Eczema Psoriasis History of nephrolithiasis History of deep DVT DVT Proflex is. Lovenox 40 Mill grams subcu tensely daily Attestations Medical Necessity Statement*: The patient's anticipate length of stay is greater than 2 minutes for treatment of her dyspnea due to COPD exacerbation as well as CHF exacerbation Coding Level of Care Code Acute Cardiopulmonary Technician And Eeg Tech for Dom Casas Diagnoses Respiratory failure J96.21; J96.22 Chronicity: acute on chronic Respiratory failure complication: hypoxia and hypercapnia
--- NOTE | 2022-01-20 05:33 | PC.NURSE ---
Pt BP cuff had been removed by RT and not placed back on until now.
--- NOTE | 2022-01-20 06:09 | USCV_ITS ---
Angie Naranjo Age: 56 Gender: F : 1965 Exam Date: 01/20/2022 06:34 Ordering Phys: Guido Webster DO Technologist: Jacquelyn Darden [place] [facility] [place]ication: CONGESTIVE HEART FAILURE BP: 146 / 79 HR: 80 Rhythm: Sinus Technical Quality: Adequate MEASUREMENTS (Male / Female) Normal Values 2D ECHO LV Diastolic Diameter PLAX 4.0 cm 4.2 - 5.9 / 3.9 - 5.3 cm LV Systolic Diameter PLAX 3.3 cm LV Chamber Size 4.0 cm IVS Diastolic Thickness 1.3 cm 0.6 - 1.0 / 0.6 - 0.9 cm IVS Systolic Thickness 1.6 cm LVPW Diastolic Thickness 1.3 cm 0.6 - 1.0 / 0.6 - 0.9 cm LVPW Systolic Thickness 1.6 cm RV Chamber Size 2.5 cm LVOT Diameter 2.1 cm LV Ejection Fraction 2D Teich 38.9 % LV Ejection Fraction MOD 2C 55.3 % LV Ejection Fraction 2C AL 61.2 % LA Diameter 2.9 cm LA Width 2.9 cm LA Height 4.3 cm RA Width 2.6 cm RA Height 4.3 cm Aorta at Sinotubular Diameter 2.0 cm IVC Diameter 1.7 cm M-MODE Aortic Annulus Diameter 3.5 cm LA Ao Ratio MM 0.9 MV E Point Septal Separation 0.3 cm DOPPLER AV Peak Velocity 239.0 cm/s LVOT Peak Velocity 147.0 cm/s AV Area Cont Eq vti 2.1 cm squared AV Area Cont Eq pk 2.1 cm squared MV Area PHT 2.8 cm squared Mitral E to A Ratio 0.9 MV E' Velocity 45.0 cm/s Mitral E to MV E' Ratio 9.5 Mitral E to LV E' Lateral Ratio 8.8 Mitral E to LV E' Septal Ratio 10.4 TR Peak Velocity 248.8 cm/s TR Peak Gradient 24.8 mmHg TR Mean Velocity 187.5 cm/s TR Mean Gradient 15.6 mmHg TR Velocity Time Integral 62.5 cm TV Peak E Velocity 70.0 cm/s Right Atrial Pressure 3.0 mmHg Pulmonary Artery Systolic Pressu 27.8 mmHg PV Peak Velocity 73.0 cm/s RV Acceleration Time 0.1 s RV Ejection Time 0.4 s RV AcT/ET 0.3 FINDINGS Left Ventricle Normal left ventricular size, systolic function and wall thickness, with no regional wall motion abnormalities. Left ventricular ejection fraction is estimated at 70 %. Normal diastolic function. Right Ventricle Normal right ventricular size and systolic function. Right ventricular systolic pressure 27.8 mmHg. Right Atrium Normal right atrial size. Left Atrium Normal left atrial size. Mitral Valve Structurally normal mitral valve. No mitral valve stenosis. No mitral valve regurgitation. Aortic Valve Aortic valve not well visualized. No aortic valve stenosis. Mild to moderate aortic valve regurgitation. Tricuspid Valve Structurally normal tricuspid valve. No tricuspid valve stenosis. Trace tricuspid valve regurgitation. Pulmonic Valve Pulmonic valve not well visualized. No pulmonary valve stenosis. No significant pulmonary valve regurgitation. Pericardium No pericardial effusion. Aorta Normal size aortic root and proximal ascending aorta. Normal sized inferior vena cava. CONCLUSIONS 1. Normal left ventricular size, systolic function and wall thickness, with no regional wall motion abnormalities. Left ventricular ejection fraction is estimated at 70 %. Normal diastolic function. 2. Mild to moderate aortic valve regurgitation. 3. When compared to study dated 09/03/20, there has been no significant change. Lynne Willett MD (Electronically Signed) Final Date: 20 Jan 2022 18:09 S
[2022-01-20] MEDS: enoxaparin 40 mg/0.4 mL Syringe SUBCUT (06:25)
[2022-01-20] MEDS: acetaminophen 325 mg Tablet 650 MG PO (06:25)
[2022-01-20] MEDS: FUROsemide 10 mg/mL SDV 2mL 20 MG IVP ×3 (07:06→22:11)
--- NOTE | 2022-01-20 08:07 | P.PN_ITS ---
Subjective Subjective: Patient endorses continued shortness of breath, reports gradual worsening in symptoms over the past month. Reports left sided substernal chest discomfort with radiation to neck. Reports cough, describes as non-productive. Reports she wears 3L of oxygen at baseline. Endorses generalized arthritis in several joints including hands and bilateral hips. Denies fevers, chills, nausea, or emesis. She reports she continues to smoke but has a desire to quit smoking. She reports she is down to about 2 cigarettes per day now. Reports she has quit smoking before always using the cold turkey method. She states her biggest roshan is really down time and having the need to do something with her hands. Smoking cessation counseling discussed. Discussed harmful effects on continued smoking on her lungs and heart especially her COPD. Advised complete cessation. Medications: Reviewed: Yes Vitals/I&O/Wt Last Vital Signs Temp 99.4 F 01/20/22 07:15 Pulse 77 01/20/22 07:25 Resp 18 01/20/22 07:25 BP 141/70 01/20/22 07:15 Pulse Ox 94 01/20/22 07:25 Weight last 48 hrs Weight 83.461 kg Physical Exam Narrative: General: Patient is awake. Appears fatigued. Head: Normocephalic. Atraumatic. EOM intact. Neck: No JVD. Cardiovascular: RRR. No gallops. No murmurs. Trace pedal edema. Lungs: Poor air movement. No audible wheezing. No crackles. No rhonchi. No rales. Skin: No jaundice. No rashes. Abdomen: Obese. Normal bowel sounds, abdomen soft and nontender. Genito Urinary: Genital exam not performed since complaints not related. Rectal: Rectal exam not performed since no symptoms indicated blood loss. Extremeties: No cyanosis or clubbing. Musculoskeletal: No swollen or erythematous joints. Neurological: Moves all 4 extremities. No myoclonus. Data : 01/20/22 03:00 01/20/22 03:00 CXR: My impression: No focal consolidations. Radiologist's impression: 1. Mild indistinctness of the pulmonary vasculature with hazy in strandy opacities present in the lower hemithoraces, findings that could represent mild pulmonary edema. 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 Mild indistinctness of the pulmonary vasculature with hazy in strandy opacities present in the lower hemithoraces, findings that could represent mild pulmonary edema. A&P Assessment and plan (1) COPD exacerbation: Tight air movement on exam. Status post IV Solu-Medrol. Start prednisone burst 40 mg daily. Cough is nonproductive, hold off on antibiotics. Procalcitonin ordered. DuoNebs every 4 hours. Status: Acute (2) Respiratory failure: Acute on chronic hypoxic respiratory failure secondary to acute COPD exacerbation. Currently on 5 L of oxygen, baseline is 3 L. Continue supplemental oxygen support for SPO2 goal of 88 to 96%. Avoid SPO2 of greater than 96% as it is associated with worse outcomes in COPD patients. Status: Acute Qualifiers: Chronicity: acute on chronic Respiratory failure complication: hypoxia and hypercapnia Qualified Code(s): J96.21 - Acute and chronic respiratory failure with hypoxia; J96.22 - Acute and chronic respiratory failure with hypercapnia (3) Chest pain: History of coronary artery disease. Description of chest pain concerning for ischemia. Rule out acute coronary syndrome with serial troponins. First troponin is within normal limits. Continuous telemetry monitoring. Admission EKG with nonspecific T wave changes. EKG as needed for chest pain. Continue high intensity statin, Plavix, Imdur and Coreg. Sublingual nitroglycerin as needed. Status: Acute (4) Pulmonary edema: Checks x-ray personally reviewed. Only trace edema on exam. Continue with low-dose IV Lasix for net negative goal. Strict I's and O's Status: Acute (5) Smoking: Smoking cessation was discussed for greater than 10 minutes. Given her current tobacco usage, advised against nicotine replacement. Status: Acute (6) Polyarticular psoriatic arthritis: Tylenol and [place] as needed. Status: Chronic (7) Essential (primary) hypertension: Continue Coreg. Status: Acute (8) Hyperlipidemia: Continue high intensity statin. Status: Acute Qualifiers: Hyperlipidemia type: mixed hyperlipidemia Qualified Code(s): E78.2 - Mixed hyperlipidemia (9) GERD without esophagitis: Continue PPI Status: Acute (10) Hypothyroidism: Continue Synthroid Status: Acute Qualifiers: Hypothyroidism type: other Qualified Code(s): E03.8 - Other specified hypothyroidism (11) Depression with anxiety: Continue Prozac. Continue home Xanax and hydroxyzine as needed Status: Acute Plan DVT prophylaxis: Lovenox Attestations Medical Necessity Statement*: Patient requires ongoing hospitalization to rule out acute coronary syndrome, treatment of acute on chronic hypoxic respiratory failure, and acute COPD exacerbation with expected stay to cross 2 midnights. 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 [employer] Fwd Diagnoses Polyarticular psoriatic arthritis L40.59 COPD exacerbation J44.1 Essential (primary) hypertension I10 Hyperlipidemia E78.2 Hyperlipidemia type: mixed hyperlipidemia GERD without esophagitis K21.9 Hypothyroidism E03.8 Hypothyroidism type: other Depression with anxiety F41.8 Chest pain R07.9 Smoking F17.200 Respiratory failure J96.21; J96.22 Chronicity: acute on chronic Respiratory failure complication: hypoxia and hypercapnia Pulmonary edema J81.1
[2022-01-20] MEDS: ALPRAZolam 0.5 mg Tablet 0.25 MG PO (09:17)
[2022-01-20] MEDS: cholecalciferol (vitamin D3) 1,000 unit Tablet 2000 UNIT PO (09:17)
[2022-01-20] MEDS: levothyroxine 100 mcg Tablet PO (09:17)
[2022-01-20] MEDS: carvedilol 25 mg Tablet PO ×2 (09:17→18:35)
[2022-01-20] MEDS: folic acid 1 mg Tablet PO (09:18)
[2022-01-20] MEDS: isosorbide mononitrate ER 60 mg Tablet PO (09:18)
[2022-01-20] MEDS: pantoprazole DR 40 mg Tablet PO (09:18)
[2022-01-20] MEDS: HYDROcodone-acetaminophen 5-325 mg Tablet 1 TAB PO ×3 (09:18→21:24)
[2022-01-20] MEDS: fluoxetine 20 mg Capsule PO ×2 (09:18→18:35)
[2022-01-20] MEDS: clopidogrel 75 mg Tablet PO (09:18)
[2022-01-20] MEDS: predniSONE 20 mg Tablet 40 MG PO (09:18)
--- NOTE | 2022-01-20 09:23 | ECG_ITS ---
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 Measurements Intervals [place] Rate: 79 P: 58 [place]: 167 QRS: -6 QRSD: 88 T: 65 QT: 381 QTc: 439 Interpretive Statements SINUS RHYTHM NONSPECIFIC T-WAVE ABNORMALITY Compared to ECG 04/03/2021 23:30:53 Myocardial infarct finding no longer present Possible ischemia no longer present T-wave abnormality still present Electronically Signed On 01-20-2022 13:28:01 CDT by Lynne Willett M.D. [id number]
[2022-01-20 09:24] LABS: Procalcitonin 0.07 ng/mL (0-0.5)
[2022-01-20 09:36] LABS: Troponin 5 2HR Delta -1.3 ABS# (0-10)
[2022-01-20] MEDS: verapamil ER 180 mg Tablet PO (10:18)
[2022-01-20 10:31] LABS: Troponin 5 6HR Delta -1.8 ng/L (0-12)
[2022-01-20] MEDS: budesonide 0.5 mg/2 mL Neb INHALATION ×2 (11:50→20:10)
[2022-01-20] MEDS: sennosides 8.6 mg Tablet PO (21:24)
[2022-01-20] MEDS: atorvastatin 40 mg Tablet PO (21:24)
[2022-01-20] MEDS: morphine 4 mg/mL SDV 1 mL 2 MG IVP (22:43)
[2022-01-21] VITALS (7 sets, daily range): BP systolic 124–128; BP diastolic 63–69; PULSE 65–76; RESP 14–17; TEMP 36.2–37.3; O2SAT 91–97
[2022-01-21 04:26] LABS: Hematocrit 37.1 % (37.0-47.0); Hemoglobin 11.9 g/dL (11.5-15.3); Lymphocytes % 9.6 %; Mean Corpuscular HGB Conc 32.1 g/dL (30.0-36.0); Mean Corpuscular Hemoglobin 29.8 pg (28.0-34.0); Mean Platelet Volume 10.5 fL (7.4-10.4); Monocytes # 0.9 10^3/uL (0.2-0.9); Neutrophils # 8.15 10^3/uL (1.8-7.7); Neutrophils % 80.7 %; Nucleated Red Blood Cells % 0 %; Platelet Count 245 10^3/cmm (130-400); Red Blood Count 3.99 10^6/uL (4.1-5.3); Red Cell Distribution Width 13.7 % (12.1-15.1); White Blood Count 10.1 10^3/uL (4.0-10.0)
[2022-01-21 04:47] LABS: Blood Urea Nitrogen 11 mg/dL (6-20); Calcium 9.9 mg/dL (8.5-10.5); Carbon Dioxide 38 mmol/L (22-29); Chloride 92 mmol/L (98-107); Glomerular Filtration Rate 73.7 mL/min (90-130); Glucose 160 mg/dL (65-115); Osmolality Calculated 287 mOsm/kg (285-295); Sodium 137 mmol/L (136-145)
[2022-01-21] MEDS: FUROsemide 10 mg/mL SDV 2mL 20 MG IVP (05:58)
[2022-01-21] MEDS: enoxaparin 40 mg/0.4 mL Syringe SUBCUT (06:06)
[2022-01-21] MEDS: ipratropium-albuterol 3 mL Neb INHALATION ×2 (07:41→11:36)
[2022-01-21] MEDS: budesonide 0.5 mg/2 mL Neb INHALATION (07:41)
[2022-01-21] MEDS: ALPRAZolam 0.5 mg Tablet 0.25 MG PO (08:45)
[2022-01-21] MEDS: verapamil ER 180 mg Tablet PO (08:45)
[2022-01-21] MEDS: fluoxetine 20 mg Capsule PO (08:46)
[2022-01-21] MEDS: carvedilol 25 mg Tablet PO (08:46)
[2022-01-21] MEDS: isosorbide mononitrate ER 60 mg Tablet PO (08:46)
[2022-01-21] MEDS: cholecalciferol (vitamin D3) 1,000 unit Tablet 2000 UNIT PO (08:46)
[2022-01-21] MEDS: pantoprazole DR 40 mg Tablet PO (08:46)
[2022-01-21] MEDS: HYDROcodone-acetaminophen 5-325 mg Tablet 1 TAB PO (08:46)
[2022-01-21] MEDS: folic acid 1 mg Tablet PO (08:46)
[2022-01-21] MEDS: clopidogrel 75 mg Tablet PO (08:46)
[2022-01-21] MEDS: predniSONE 20 mg Tablet 40 MG PO (08:46)
[2022-01-21] MEDS: levothyroxine 100 mcg Tablet PO (08:46)
--- NOTE | 2022-01-21 10:37 | PC.CHAP ---
Pastoral Care Encounter/Spiritual Assessment Type of Contact [] Declined senior dentist visit [] Patient/Family/Request visit [] Outpatient visit [] Follow-up visit [] Physician referral [] Code/Alert [x] Routine visit [] Staff referral [] Actively dying [] Patient sleeping [] Family support [] [] Out of room [] Palliative care [] [x] Receiving care in room [] Pre-surgical visit [] Trauma [] Long length of stay [] ICU visit [] Other: Relational/Emotional Strength [] Patient feels connected with others/family/visitors/staff [] Distress [] Loneliness/isolation [] Abandonment Spirituality of Patient [] Person of Inge [] Attends Congregation of their Inge [] Believes in Prayer [] Reads Bible or Lutheran materials [] There are Spiritual issues to be addressed Trade Show Manager Interventions [] Prayer [] Active listening [] Non-anxious presence [] Spiritual/emotional support [] Crisis/trauma care [] Spiritual counseling [] Bereavement support [] Provided bereavement packet [] Provided Bible/devotional materials [] Provided toy/stuffed animal, coloring book to patient or family member [] Provided Communion [] Anointing/[place] [] Salvation [] Completed spiritual assessment [] Other: Impact on Illness or Injury [] Angry [] Fearful [] Anxious [] Often cries [] Exhaustion [] Unable to work [] Unable to attend confucianist [] Unable to walk/stand [] Unable to read [] Unable to drive [] Unable to eat/drink [] Unable to sleep [] Unable to be with family [] Patient intubated [] Other: Summary Time spent with patient
--- NOTE | 2022-01-21 11:49 | P.DS_ITS ---
Discharge Providers Date of Admission: 01/20/22 05:12 Date of Discharge: January 21, 2022 Attending Provider at Admission: Guido Webster DO Attending Provider at Discharge: Santo Ron MD Primary Care Provider: Afia Barrett NP Diagnoses at Discharge Discharge Diagnosis (1) COPD exacerbation: Status: Acute (2) Respiratory failure: Status: Acute Qualifiers: Chronicity: acute on chronic Respiratory failure complication: hypoxia and hypercapnia Qualified Code(s): J96.21 - Acute and chronic respiratory failure with hypoxia; J96.22 - Acute and chronic respiratory failure with hypercapnia (3) Chest pain: Status: Acute (4) Pulmonary edema: Status: Acute (5) Smoking: Status: Acute (6) Polyarticular psoriatic arthritis: Status: Chronic (7) Essential (primary) hypertension: Status: Acute (8) Hyperlipidemia: Status: Acute Qualifiers: Hyperlipidemia type: mixed hyperlipidemia Qualified Code(s): E78.2 - Mixed hyperlipidemia (9) GERD without esophagitis: Status: Acute (10) Hypothyroidism: Status: Acute Qualifiers: Hypothyroidism type: other Qualified Code(s): E03.8 - Other specified hypothyroidism (11) Depression with anxiety: Status: Acute Reason for Visit Reason for Visit: CP Hospital Course Hospital Course This is a 48 female with a past medical history of COPD, 4 L oxygen dependent, history of hypertension, hyperlipidemia, fibromyalgia, who presents [facility] for shortness of breath Patient was admitted to [facility] for respiratory failure secondary to COPD exacerbation, fluid overload, received steroid therapy, nebulizer therapy, Lasix therapy, oxygen therapy and clinically monitored. Patient clinically improved, down to 3 L, discharged on her home Lasix 20 mg once daily with potassium replacement, a prednisone burst, and doxycycline. Patient was advised to quit smoking Patient also had chest pain complaints on admission, EKG had nonspecific T wave changes, 6-hour troponin 7.2, delta of -1.8, echocardiogram as below 1. Normal left ventricular size, systolic function and wall ?thickness, with no regional wall motion abnormalities. Left ?ventricular ejection fraction is estimated at 70 %. Normal ?diastolic function. ?2. Mild to moderate aortic valve regurgitation. ?3. When compared to study dated 09/03/20, there has been no ?significant change. -Chest pain likely secondary to COPD exacerbation, discharged on Plavix, statin, nitro as needed, follow-up with cardiology as outpatient Physical Exam Const: COMMON NORMALS: no acute distress and patient oriented x3 Resp: COMMON NORMALS: normal respiratory effort, No retractions, No use of accessory muscles and clear to auscultation bilaterally AUSCULTATION: clear to auscultation bilaterally Cardio: COMMON NORMALS: regular rate, regular rhythm, S1 normal heart sound present and S2 normal heart sound present RATE: regular rate RHYTHM: regular rhythm HEART SOUNDS: S1 normal heart sound present and S2 normal heart sound present GI: COMMON NORMALS: Normal to inspection, nondistended, normoactive bowel sounds present, Soft to palpation, non-tender, No hepatosplenomegaly present and no masses PALPATION: Yes Soft to palpation and Yes No hepatosplenomegaly present Extremity: COMMON NORMALS: no pedal edema Neuro: COMMON NORMALS: patient oriented x3 Psych: COMMON NORMALS: mental status grossly normal Discharge Data Studies Completed and Pending Completed Studies During Hospitalization Category Date Time Status XR chest 1V portable [id number] Stat Exams 01/20/22 03:23 Completed CV. echo complete* [id number] Routine Ultrasound 01/20/22 06:09 Completed Pending at discharge Category Date Time Status Arterial Blood Gas W/O Coox Stat Lab 01/20/22 04:37 Received Blood Culture Stat Lab 01/20/22 08:14 Results Radiology Impressions Chest X-Ray 01/20/22 03:23 IMPRESSION: 1. Mild indistinctness of the pulmonary vasculature with hazy in strandy opacities present in the lower hemithoraces, findings that could represent mild pulmonary edema. Laboratory Results WBC 10.1 10^3/uL (4.0-10.0) H 01/21/22 04:13 RBC 3.99 10^6/uL (4.1-5.3) L 01/21/22 04:13 Hgb 11.9 g/dL (11.5-15.3) 01/21/22 04:13 Hct 37.1 % (37.0-47.0) 01/21/22 04:13 MCV 93.0 fl (81-99) 01/21/22 04:13 MCH 29.8 pg (28.0-34.0) 01/21/22 04:13 MCHC 32.1 g/dL (30.0-36.0) 01/21/22 04:13 RDW 13.7 % (12.1-15.1) 01/21/22 04:13 Plt Count 245 10^3/cmm (130-400) 01/21/22 04:13 MPV 10.5 fL (7.4-10.4) H 01/21/22 04:13 Neut % (Auto) 80.7 % 01/21/22 04:13 Lymph % (Auto) 9.6 % 01/21/22 04:13 Hale % (Auto) 9.0 % 01/21/22 04:13 Eos % (Auto) 0.0 % 01/21/22 04:13 Baso % (Auto) 0.0 % 01/21/22 04:13 Neut # (Auto) 8.15 10^3/uL (1.8-7.7) H 01/21/22 04:13 Lymph # (Auto) 1.0 10^3/uL (0.8-4.8) 01/21/22 04:13 Hale # (Auto) 0.9 10^3/uL (0.2-0.9) 01/21/22 04:13 Eos # (Auto) 0.0 10^3/uL (0.0-0.8) 01/21/22 04:13 Baso # (Auto) 0.0 10^3/uL (0.0-0.1) 01/21/22 04:13 Nucleated RBC % (auto) 0 % 01/21/22 04:13 Nucleated RBCs # 0.0 /100WBC 01/21/22 04:13 Sodium 137 mmol/L (136-145) 01/21/22 04:13 Potassium 4.0 mmol/L (3.5-5.1) 01/21/22 04:13 Chloride 92 mmol/L (98-107) L 01/21/22 04:13 Carbon Dioxide 38 mmol/L (22-29) H 01/21/22 04:13 Anion Gap 11.0 (5-19) 01/21/22 04:13 BUN 11 mg/dL (6-20) 01/21/22 04:13 Creatinine 0.8 mg/dL (0.5-0.9) 01/21/22 04:13 GFR Calculation 73.7 mL/min (90-130) L 01/21/22 04:13 Glucose 160 mg/dL (65-115) H 01/21/22 04:13 Calculated Osmolality 287 mOsm/kg (285-295) 01/21/22 04:13 Calcium 9.9 mg/dL (8.5-10.5) 01/21/22 04:13 Total Bilirubin 0.4 mg/dL (0.15-1.2) 01/20/22 03:00 AST 25 U/L (0-32) 01/20/22 03:00 ALT 19 U/L (0-33) 01/20/22 03:00 Alkaline Phosphatase 103 IU/L (35-105) 01/20/22 03:00 Troponin T Baseline 9 ng/L (0-10) 01/20/22 03:00 Troponin T 120 Minute 7.70 ng/L (0-10) 01/20/22 08:10 Delta Troponin T -1.3 ABS# (0-10) L 01/20/22 08:10 Troponin T Hi Sens 6Hr 7.20 ng/L (0-10) 01/20/22 09:40 Troponin T Hi Sens 6Hr Delta -1.8 ng/L (0-12) L 01/20/22 09:40 NT-Pro-B Natriuret Pep 302 pg/mL (0-125) H 01/20/22 03:00 Total Protein 6.7 g/dL (6.6-8.7) 01/20/22 03:00 Albumin 4.2 g/dL (3.5-5.2) 01/20/22 03:00 Globulin 2.5 g/dL (1.3-4.6) 01/20/22 03:00 Procalcitonin 0.07 ng/mL (0-0.5) 01/20/22 08:10 Vitals Last Vital Signs Temp 97.9 F 01/21/22 07:34 Pulse 65 01/21/22 11:30 Resp 16 01/21/22 11:30 BP 125/69 01/21/22 07:34 Pulse Ox 96 01/21/22 11:30 Discharge Plan Discharge Patient Disposition: Home Condition: Stable Prescriptions: New Xanax 0.25 mg tablet 0.25 mg PO DAILY PRN (Reason: anxiety) 7 Days Qty: 7 0RF prednisone 20 mg Tablet 40 mg PO DAILY 5 Days Qty: 10 0RF doxycycline hyclate 100 mg tablet 100 mg PO BID 5 Days Qty: 10 0RF Continued nitroglycerin 0.4 mg tablet, sublingual 0.4 mg sublingual Q5M PRN (Reason: chest pain) Qty: 30 6RF Rx Instructions: do not exceed 3 doses per episode pantoprazole 40 mg tablet,delayed release (DR/EC) 40 mg PO DAILY Qty: 30 4RF Rx Instructions: An Appt and labs will need to be done before any further refills. atorvastatin 40 mg tablet 40 mg PO DAILY Qty: 30 4RF Rx Instructions: AT 1999 carvedilol 25 mg tablet 25 mg PO BID Qty: 60 4RF Rx Instructions: AT 799, 1999 clopidogrel 75 mg tablet 75 mg PO QDAY Qty: 30 5RF Hold Instructions: Resume on 09/27/20. hold until you see primary care in 1 week Rx Instructions: AT 0800 Trelegy Ellipta 100-62.5-25 mcg blister with device 1 inh INHALATION DAILY Qty: 28 3RF Rx Instructions: AT 0900 albuterol sulfate 90 mcg/actuation HFA aerosol inhaler See Rx Instructions .ROUTE .COMPLEX Qty: 8.5 3RF Dose Instruction: USE 2 PUFFS FOUR TIMES DAILY NEEDED FOR SHORTNESS OF BREATH OR WHEEZING Rx Instructions: USE 2 PUFFS FOUR TIMES DAILY NEEDED FOR SHORTNESS OF BREATH OR WHEEZING cyclobenzaprine 10 mg tablet 10 mg PO BID PRN (Reason: muscle spasm) 0RF Label Comments: Patient states not using this medicine. fluoxetine [Prozac] 20 mg capsule 20 mg PO BID 0RF Rx Instructions: albuterol sulfate 2.5 mg /3 mL (0.083 %) solution for nebulization 2.5 mg INHALATION Q4H PRN (Reason: shortness of breath or wheezing) Qty: 90 3RF (DME) Nebulizer machine See Rx Instructions .Route .MEDSUPPLY Qty: 1 0RF Rx Instructions: As directed levothyroxine 100 mcg tablet 100 mcg PO DAILY Qty: 90 0RF hydroxyzine HCl 25 mg tablet 25 mg PO QID PRN (Reason: anxiety) Qty: 120 1RF Rx Instructions: take also for itching furosemide [Lasix] 20 mg tablet 20 mg PO DAILY Qty: 30 1RF Rx Instructions: AT 0800 clonidine HCl 0.1 mg tablet 0.1 mg PO DAILY PRN (Reason: hypertensive emergency) Qty: 90 1RF Label Comments: Patient states she takes one tablet every morning, then sees how her blood pressure does throughout the day and takes the other two tablets as needed. Rx Instructions: AT 0900,2100 cholecalciferol (vitamin D3) 50 mcg (2,000 unit) tablet 2,000 unit PO DAILY Qty: 30 1RF Rx Instructions: AT 0800 verapamil 180 mg capsule,ext rel. pellets 24 hr 180 mg PO DAILY Qty: 90 1RF triamcinolone acetonide 0.1 % ointment See Rx Instructions .ROUTE .COMPLEX Qty: 30 3RF Dose Instruction: APPLY TO AFFECTED AREA TWO TIMES DAILY NEEDED Rx Instructions: APPLY TO AFFECTED AREA TWO TIMES DAILY NEEDED methotrexate sodium 2.5 mg tablet See Rx Instructions PO Q7D Qty: 30 3RF Label Comments: Patient stated it has been a year since taking this and has been recently restarted but has not had her first dose yet. Rx Instructions: take 6 tabs once weekly/every friday PO every 7 days; potassium chloride 10 mEq Tablet Extended Release 10 meq PO DAILY 0RF folic acid 1 mg Tablet 1 mg PO DAILY 0RF Percocet 10-325 mg Tablet 1 tab PO TID PRN (Reason: moderate pain) 0RF Xanax 0.25 mg tablet 0.25 mg PO DAILY 7 Days Qty: 7 0RF Held prednisone 10 mg tablet 10 mg PO DAILY 0RF Hold Instructions: Resume on 01/26/22. resume after prednisone burst Discharge Orders: Discharge Order (Routine); Ordered 01/21/22 Ordered By: Santo Ron Referrals: Afia Barrett NP [Primary Care Provider] - Discharge Diet: Cardiac Discharge Activity: Resume usual activity Patient Instructions: Opioid Safety Activity Restrictions/Additional Instructions: - Please stop smoking -Use Xanax sparingly for anxiety 0.25 mg once daily as needed for anxiety -Do not drive or operate heavy machinery or drink while taking Xanax or mix with Percocet -Please follow-up with primary care provider 1 week Discharge Attestations Time Spent in Discharge Care*: less than 30 min Quality Metrics Clinical Quality Measures [ No reported AMI, CVA or VTE this stay] Coding Level of Care Code Acute Chg FW DC note Diagnoses COPD exacerbation J44.1 Respiratory failure J96.21; J96.22 Chronicity: acute on chronic Respiratory failure complication: hypoxia and hypercapnia Chest pain R07.9 Pulmonary edema J81.1 Smoking F17.200 Polyarticular psoriatic arthritis L40.59 Essential (primary) hypertension I10 Hyperlipidemia E78.2 Hyperlipidemia type: mixed hyperlipidemia GERD without esophagitis K21.9 Hypothyroidism E03.8 Hypothyroidism type: other Depression with anxiety F41.8
[2022-01-22 12:58] LABS: ABG PH Result 7.31 (7.35-7.45); Arterial Blood Gas Hematocrit 39.5 % (37-47); Base Excess ABG 8.8 mmol/L (-2.0-2.0); Blood Gas Allen Test Pos; Blood Gas LPM 4.5 %; Blood Gas Sample Site Brachial, right; Blood Gas Sample Type Arterial; HCO3 ABG 37.8 mmol/L (22-26); Oxygen Device NC; PO2 ABG 63.5 mmHg (80.0-100.0)
[2022-01-22 14:49] LABS: ABG PCO2 74.5 mmHg (35-45)
== END 2022-01-21 14:35 | disposition home or self-care (01) | DRG 190 ==
LOC: ER 05:08 → MEDSURG 05:23
PROVIDERS: Internal Medicine; Admitting Provider Internal Medicine; Emergency Provider Emergency Medicine; PCP Nurse Practitioner Family; Visit Provider Internal Medicine
DX: J44.1 Chronic obstructive pulmonary disease with (acute) exacerbation (principal); J96.22 Acute and chronic respiratory failure with hypercapnia; J96.21 Acute and chronic respiratory failure with hypoxia; I50.33 Acute on chronic diastolic (congestive) heart failure; Z99.81 Dependence on supplemental oxygen; I35.1 Nonrheumatic aortic (valve) insufficiency; M79.7 Fibromyalgia; I11.0 Hypertensive heart disease with heart failure; E78.2 Mixed hyperlipidemia; M06.09 Rheumatoid arthritis without rheumatoid factor, multiple sites; E89.0 Postprocedural hypothyroidism; F17.210 Nicotine dependence, cigarettes, uncomplicated; F41.8 Other specified anxiety disorders; I25.10 Atherosclerotic heart disease of native coronary artery without angina pectoris; M62.838 Other muscle spasm; K21.9 Gastro-esophageal reflux disease without esophagitis; E66.9 Obesity, unspecified; Z68.34 Body mass index [BMI] 34.0-34.9, adult; Z79.891 Long term (current) use of opiate analgesic; Z79.51 Long term (current) use of inhaled steroids; Z79.02 Long term (current) use of antithrombotics/antiplatelets; Z86.718 Personal history of other venous thrombosis and embolism; Z87.442 Personal history of urinary calculi; L40.50 Arthropathic psoriasis, unspecified
CPT/HCPCS: 36415; 36600; 71045; 80048; 80053; 82803; 83880; 84145; 84484; 85025; 87040; 93005; 93306; 94640; 94660; 94664; 96372; 99214; G0378; J1650; J1940; J2270; J2405; J2930; J3010; J7512; J7626

== ENCOUNTER 2022-02-03 17:08 | Observation (INO) | payer MEDICARE, MEDICAID, SELFPAY ==
[2022-02-03] VITALS (9 sets, daily range): BP systolic 119–152; BP diastolic 65–90; PULSE 71–84; RESP 16–26; TEMP 36.6; O2SAT 93–98; BMI 32.9; BMI 34.4
--- NOTE | 2022-02-03 17:13 | XRR_ITS ---
PROCEDURE INFORMATION: Exam: XR Chest Exam date and time: 02/03/2022 5:29 PM Age: 56 years old Clinical indication: Shortness of breath; Additional info: SOB TECHNIQUE: Imaging protocol: XR of the chest. Views: 1 view. COMPARISON: CR (CHEST, ) 01/20/2022 3:33 AM FINDINGS: Lungs: Unremarkable. No consolidation. Pleural spaces: Unremarkable. No pleural effusion. No pneumothorax. Heart/Mediastinum: Unremarkable. No cardiomegaly. Bones/joints: Unremarkable. XR/XR chest 1V portable [id number] IMPRESSION: No acute findings.
--- NOTE | 2022-02-03 17:13 | ECG_ITS ---
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 Measurements Intervals [place] Rate: 74 P: 69 TN: 161 QRS: 15 QRSD: 87 T: 53 QT: 398 QTc: 443 Interpretive Statements SINUS RHYTHM POSSIBLE LEFT ATRIAL ENLARGEMENT [-0.1mV P-WAVE IN V1/V2] Compared to ECG 01/20/2022 05:16:51 Myocardial infarct finding no longer present Electronically Signed On 02-03-2022 20:24:03 CDT by Gui Conway M.D. [id number]
--- NOTE | 2022-02-03 17:18 | ED_ITS ---
Documented by User: Ghazala Garrett MD 02/03/22 17:25 HPI - SOB/Dyspnea General: Chief Complaint: Shortness of Breath/Dyspnea Stated Complaint: CHEST PAIN; SOB Time Seen by Provider: 02/03/22 17:18 Source: patient and EMS Mode of arrival: EMS Limitations: no limitations History of Present Illness: HPI Narrative: 56-year-old female who is a longtime smoker with a history of congestive heart failure and COPD patient was admitted here 2 weeks ago for COPD exacerbation states that over the last 3 days she has had increasing cough along with dyspnea and intermittent sharp chest pains. Patient denies any fevers. EMS states when they arrived she was in distress but she had taken a breathing treatment is improved currently she is on 3 L at all times they have her on 4 L currently. Associated symptoms: Reports chest pain; Deny abdominal pain, fever(s), nausea or vomiting Review of Systems Const: Denies: fever(s), chills, body aches or change in appetite Eyes: Denies: blurry vision or eye discomfort ENMT: Denies: throat pain or dental pain Card: Reports: chest pain Resp: Reports: dyspnea and non-productive cough GI: Denies: abdominal pain, nausea, vomiting or diarrhea : Denies: dysuria Musc: Denies: neck pain or back pain Skin/Breast: Denies: rash Neuro: Denies: headache(s) Psych: Denies: depression Lewis/Lymph: Denies: easy bruising All/Imm: Denies: urticaria PFSH ED PFSH: Medical History Aortic regurgitation Bereavement counseling Eczema Essential (primary) hypertension Fibromyalgia High risk medication use Hyperlipidemia Immunization counseling Inflammatory arthritis Psychiatric care Seronegative rheumatoid arthritis Surgical History H/O breast biopsy H/O esophagogastroduodenoscopy (11/07/20) H/O thyroidectomy History of tonsillectomy Hx of cholecystectomy Status post colonoscopy (11/07/20) Family History Mother Rheumatoid arthritis Father Rheumatoid arthritis Leukemia Denies family history of Lupus Social History Smoking and tobacco status: current every day smoker cigarettes Packs smoked per day: 0.25 Years cigarettes smoked: 25 [ Other cigarette details: 2ppd x 25 years, currently trying to quit] Quit status (tobacco): not considering quitting Second hand smoke exposure: Yes Alcohol intake: never Marital status: Current occupational status: disabled History of recent travel: No Current gender identity: Female Physical Exam Const: COMMON NORMALS: patient oriented x3 HENMT: COMMON NORMALS: normocephalic and atraumatic HEAD & SCALP: normocephalic and atraumatic Eye: COMMON NORMALS: Equal, round and reactive pupils present and EOMs intact bilaterally PUPIL: Yes Equal, round and reactive pupils present Neck/C-Spine: COMMON NORMALS: full ROM and supple Chest: COMMONS NORMALS: normal inspection of the chest and normal palpation of entire chest wall Resp: COMMON NORMALS: No retractions and No use of accessory muscles AUSCULTATION: wheezes Cardio: COMMON NORMALS: regular rate, regular rhythm and No murmurs present (Cardio) RATE: regular rate RHYTHM: regular rhythm GI: COMMON NORMALS: Normal to inspection, nondistended, normoactive bowel s ounds present, Soft to palpation, non-tender and no masses PALPATION: Yes Soft to palpation Extremity: COMMON NORMALS: normal to inspection and full ROM Neuro: COMMON NORMALS: patient oriented x3, moves all extremities and no focal motor deficits Psych: COMMON NORMALS: mental status grossly normal, Normal thought process present and cooperative THOUGHT PROCESS: Normal thought process present Skin: COMMON NORMALS: no rashes or lesions noted and no wounds GENERAL SKIN EXAM: no rashes or lesions noted Course Vital Signs: Vital signs: Vital Signs Temperature 97.8 F 02/03/22 20:10 Pulse Rate 82 02/03/22 20:52 Respiratory Rate 24 H 02/03/22 20:10 Blood Pressure 137/80 02/03/22 20:10 Pulse Oximetry 96 02/03/22 20:52 MDM - SOB/Dyspnea Lab Data : 02/03/22 17:27 02/03/22 17:27 Labs/Radiology: Radiology Impressions Chest X-Ray 02/03/22 17:13 IMPRESSION: No acute findings. Laboratory Results WBC 14.5 10^3/uL (4.0-10.0) H 02/03/22 17:27 RBC 4.47 10^6/uL (4.1-5.3) 02/03/22: Hgb 13.5 g/dL (11.5-15.3) 02/03/22: Hct 42.7 % (37.0-47.0) 02/03/22: MCV 95.5 fl (81-99) 02/03/22: MCH 30.2 pg (28.0-34.0) 02/03/22: MCHC 31.6 g/dL (30.0-36.0) 02/03/22: RDW 14.9 % (12.1-15.1) 02/03/22: Plt Count 270 10^3/cmm (130-400) 02/03/22: MPV 10.2 fL (7.4-10.4) 02/03/22: Neut % (Auto) 85.8 % 02/03/22: Lymph % (Auto) 6.8 % 02/03/22: Delta % (Auto) 6.4 % 02/03/22: Eos % (Auto) 0.3 % 02/03/22 Baso % (Auto) 0.1 % 02/03/22 Neut # (Auto) 12.44 10^3/uL (1.8-7.7) H 02/03/22 Lymph # (Auto) 1.0 10^3/uL (0.8-4.8) 02/03/22: Delta # (Auto) 0.9 10^3/uL (0.2-0.9) 02/03/22: Eos # (Auto) 0.0 10^3/uL (0.0-0.8) 02/03/22 Baso # (Auto) 0.0 10^3/uL (0.0-0.1) 02/03/22 Nucleated RBC % (auto) 0 % 02/03/22 Nucleated RBCs # 0.0 /100WBC 02/03/22 PT 11.90 SECONDS (12.1-14.9) L 02/03/22:27 INR 0.85 (0.8-1.2) 02/03/22 17:27 Specimen Type Arterial 02/03/22 17:30 Sample Site Brachial, left 02/03/22 17:30 ABG pH 7.27 (7.35-7.45) L 02/03/22 17:30 ABG pCO2 76.5 mmHg (35-45) H* 02/03/22 17:30 ABG pO2 101.0 mmHg (80.0-100.0) H 02/03/22 17:30 ABG HCO3 35.3 mmol/L (22-26) H 02/03/22 17:30 ABG Base Excess 5.6 mmol/L (-2.0-2.0) H 02/03/22 17:30 Rudy Test Pos 02/03/22 17:30 Hematocrit 42.3 % (37-47) 02/03/22 17:30 O2 Delivery Device Nc 02/03/22 17:30 O2 Liters/Min 4.0 % 02/03/22 17:30 FiO2 36.0 % 02/03/22 17:30 Forensics Analyst ID Monro 02/03/22 17:30 Sodium 136 mmol/L (136-145) 02/03/22 17:27 Potassium 4.3 mmol/L (3.5-5.1) 02/03/22 17: Chloride 97 mmol/L (98-107) L 02/03/22 17: Carbon Dioxide 26 mmol/L (22-29) 02/03/22 17:27 Anion Gap 17.3 (5-19) 02/03/22 17:27 BUN 5 mg/dL (6-20) L 02/03/22 17:27 Creatinine 0.7 mg/dL (0.5-0.9) 02/03/22 17:27 GFR Calculation 85.9 mL/min (90-130) L 02/03/22 17:27 Glucose 132 mg/dL (65-115) H 02/03/22 17:27 Calculated Osmolality 281 mOsm/kg (285-295) L 02/03/22 17:27 Calcium 8.7 mg/dL (8.5-10.5) 02/03/22 17:27 Total Bilirubin 0.3 mg/dL (0.15-1.2) 02/03/22 17:27 AST 12 U/L (0-32) 02/03/22 17:27 ALT 13 U/L (0-33) 02/03/22 17:27 Alkaline Phosphatase 83 IU/L (35-105) 02/03/22 17:27 Troponin T Baseline 10 ng/L (0-10) 02/03/22 17:27 NT-Pro-B Natriuret Pep 427 pg/mL (0-125) H 02/03/22 17:27 Total Protein 7.0 g/dL (6.6-8.7) 02/03/22 17:27 Albumin 4.1 g/dL (3.5-5.2) 02/03/22 17:27 Globulin 2.9 g/dL (1.3-4.6) 02/03/22 17:27 EKG Data EKG 1: I personally reviewed and interpreted this EKG as follows: EKG Interpretation Date: 02/03/22 EKG interpretation time: 17:18 Interpretation: nsr hr [address] or t wave abnormalities qrs 87 qtc 425 Discharge Plan Discharge Patient Disposition: Admitted As Inpatient Admit Provider: Rehan Pedersen Clinical Impression: Acute exacerbation of chronic obstructive airways disease, Respiratory failure Condition: Stable Coding Level of Care Code ED Rn Perioperative for Chg Fwd Exam Comprehensive Documented by User: Imtiaz Whitman DO 02/03/22 21:00 HPI - SOB/Dyspnea General: Chief Complaint: Shortness of Breath/Dyspnea Stated Complaint: CHEST PAIN; SOB Time Seen by Provider: 02/03/22 17:18 PFSH ED PFSH: Medical History Aortic regurgitation Bereavement counseling Eczema Essential (primary) hypertension Fibromyalgia High risk medication use Hyperlipidemia Immunization counseling Inflammatory arthritis Psychiatric care Seronegative rheumatoid arthritis Surgical History H/O breast biopsy H/O esophagogastroduodenoscopy (11/07/20) H/O thyroidectomy History of tonsillectomy Hx of cholecystectomy Status post colonoscopy (11/07/20) Family History Mother Rheumatoid arthritis Father Rheumatoid arthritis Leukemia Denies family history of Lupus Social History Smoking and tobacco status: current every day smoker cigarettes Packs smoked per day: 0.25 Years cigarettes smoked: 25 [ Other cigarette details: 2ppd x 25 years, currently trying to quit] Quit status (tobacco): not considering quitting Second hand smoke exposure: Yes Alcohol intake: never Marital status: Current occupational status: disabled History of recent travel: No Current gender identity: Female Course Vital Signs: Vital signs: Vital Signs Temperature 97.8 F 02/03/22 20:10 Pulse Rate 82 02/03/22 20:52 Respiratory Rate 24 H 02/03/22 20:10 Blood Pressure 137/80 02/03/22 20:10 Pulse Oximetry 96 02/03/22 20:52 MDM - SOB/Dyspnea Medical Decision Making 56-year-old female with a history of COPD. Her pH is 7.27 with significant hypercapnia of 76 PCO2. She probably lives in the 50s. She is a white blood cell count of 14.5 with 85% neutrophils. She is afebrile. Her chest x-ray is negative. Her BMP is essentially normal. Her BNP is only minimally elevated. She is currently on BiPAP for the significant hypercapnia. She has received Solu-Medrol. She received a DuoNeb treatment in [facility], [place], and another 1 here. She will be admitted for hypoxic hypercapnic respiratory failure with COPD exacerbation. Lab Data : 02/03/22 17:27 02/03/22 17:27 Labs/Radiology: Radiology Impressions Chest X-Ray 02/03/22 17:13 IMPRESSION: No acute findings. Laboratory Results WBC 14.5 10^3/uL (4.0-10.0) H 02/03/22 17:27 RBC 4.47 10^6/uL (4.1-5.3) 02/03/22 17:27 Hgb 13.5 g/dL (11.5-15.3) 02/03/22 17:27 Hct 42.7 % (37.0-47.0) 02/03/22: MCV 95.5 fl (81-99) 02/03/22: MCH 30.2 pg (28.0-34.0) 02/03/22: MCHC 31.6 g/dL (30.0-36.0) 02/03/22: RDW 14.9 % (12.1-15.1) 02/03/22: Plt Count 270 10^3/cmm (130-400) 02/03/22: MPV 10.2 fL (7.4-10.4) 02/03/22: Neut % (Auto) 85.8 % 02/03/22: Lymph % (Auto) 6.8 % 02/03/22: Delta % (Auto) 6.4 % 02/03/22: Eos % (Auto) 0.3 % 02/03/22: Baso % (Auto) 0.1 % 02/03/22: Neut # (Auto) 12.44 10^3/uL (1.8-7.7) H 02/03/22: Lymph # (Auto) 1.0 10^3/uL (0.8-4.8) 02/03/22: Delta # (Auto) 0.9 10^3/uL (0.2-0.9) 02/03/22: Eos # (Auto) 0.0 10^3/uL (0.0-0.8) 02/03/22: Baso # (Auto) 0.0 10^3/uL (0.0-0.1) 02/03/22: Nucleated RBC % (auto) 0 % 02/03/22 Nucleated RBCs # 0.0 /100WBC 02/03/22: PT 11.90 SECONDS (12.1-14.9) L 02/03/22: INR 0.85 (0.8-1.2) 02/03/22: Specimen Type Arterial 02/03/22 17:30 Sample Site Brachial, left 02/03/22 17:30 ABG pH 7.27 (7.35-7.45) L 02/03/22 17:30 ABG pCO2 76.5 mmHg (35-45) H* 02/03/22 17:30 ABG pO2 101.0 mmHg (80.0-100.0) H 02/03/22 17:30 ABG HCO3 35.3 mmol/L (22-26) H 02/03/22 17:30 ABG Base Excess 5.6 mmol/L (-2.0-2.0) H 02/03/22 17:30 Rudy Test Pos 02/03/22 17:30 Hematocrit 42.3 % (37-47) 02/03/22 17:30 O2 Delivery Device Nc 02/03/22 17:30 O2 Liters/Min 4.0 % 02/03/22 17: FiO2 36.0 % 02/03/22 17:30 Forensics Analyst ID Ling 02/03/22 17:30 Sodium 136 mmol/L (136-145) 02/03/22 17:27 Potassium 4.3 mmol/L (3.5-5.1) 02/03/22 17:27 Chloride 97 mmol/L (98-107) L 02/03/22 17:27 Carbon Dioxide 26 mmol/L (22-29) 02/03/22 17:27 Anion Gap 17.3 (5-19) 02/03/22 17:27 BUN 5 mg/dL (6-20) L 02/03/22 17:27 Creatinine 0.7 mg/dL (0.5-0.9) 02/03/22 17:27 GFR Calculation 85.9 mL/min (90-130) L 02/03/22 17:27 Glucose 132 mg/dL (65-115) H 02/03/22 17:27 Calculated Osmolality 281 mOsm/kg (285-295) L 02/03/22 17:27 Calcium 8.7 mg/dL (8.5-10.5) 02/03/22 17:27 Total Bilirubin 0.3 mg/dL (0.15-1.2) 02/03/22 17:27 AST 12 U/L (0-32) 02/03/22 17:27 ALT 13 U/L (0-33) 02/03/22 17:27 Alkaline Phosphatase 83 IU/L (35-105) 02/03/22 17:27 Troponin T Baseline 10 ng/L (0-10) 02/03/22 17:27 NT-Pro-B Natriuret Pep 427 pg/mL (0-125) H 02/03/22 17:27 Total Protein 7.0 g/dL (6.6-8.7) 02/03/22 17:27 Albumin 4.1 g/dL (3.5-5.2) 02/03/22 17:27 Globulin 2.9 g/dL (1.3-4.6) 02/03/22 17:27 Discharge Plan Discharge Patient Disposition: Admitted As Inpatient Admit Provider: Rehan Pedersen Clinical Impression: Acute exacerbation of chronic obstructive airways disease, Respiratory failure Condition: Stable Coding Level of Care Code ED Rn Perioperative for Chg Fwd Exam Comprehensive
[2022-02-03 17:39] LABS: ABG PH Result 7.27 (7.35-7.45); Arterial Blood Gas Hematocrit 42.3 % (37-47); Base Excess ABG 5.6 mmol/L (-2.0-2.0); Blood Gas Allen Test Pos; Blood Gas Sample Type Arterial; HCO3 ABG 35.3 mmol/L (22-26)
[2022-02-03 17:39] LABS: Basophils % 0.1 %; Eosinophils % 0.3 %; Hematocrit 42.7 % (37.0-47.0); Hemoglobin 13.5 g/dL (11.5-15.3); Lymphocytes % 6.8 %; Mean Corpuscular HGB Conc 31.6 g/dL (30.0-36.0); Mean Corpuscular Hemoglobin 30.2 pg (28.0-34.0); Mean Corpuscular Volume 95.5 fl (81-99); Mean Platelet Volume 10.2 fL (7.4-10.4); Monocytes # 0.9 10^3/uL (0.2-0.9); Monocytes % 6.4 %; Neutrophils # 12.44 10^3/uL (1.8-7.7); Neutrophils % 85.8 %; Nucleated Red Blood Cells % 0 %; Platelet Count 270 10^3/cmm (130-400); Red Blood Count 4.47 10^6/uL (4.1-5.3); Red Cell Distribution Width 14.9 % (12.1-15.1); White Blood Count 14.5 10^3/uL (4.0-10.0)
[2022-02-03 17:42] LABS: ABG PCO2 76.5 mmHg (35-45); Blood Gas Operator Identificat MONRO; Blood Gas Sample Site Brachial, left; Oxygen Device NC
[2022-02-03 17:52] LABS: INR 0.85 (0.8-1.2)
[2022-02-03 17:57] LABS: Troponin(5th) Baseline 10 ng/L (0-10)
[2022-02-03 18:11] LABS: Alanine Aminotransferase 13 U/L (0-33); Albumin Level 4.1 g/dL (3.5-5.2); Alkaline Phosphatase 83 IU/L (35-105); Anion Gap 17.3 (5-19); Aspartate Amino Transferase 12 U/L (0-32); Blood Urea Nitrogen 5 mg/dL (6-20); Calcium 8.7 mg/dL (8.5-10.5); Carbon Dioxide 26 mmol/L (22-29); Chloride 97 mmol/L (98-107); Globulin 2.9 g/dL (1.3-4.6); Glomerular Filtration Rate 85.9 mL/min (90-130); Glucose 132 mg/dL (65-115); NT Pro B Type Natriuretic Pept 427 pg/mL (0-125); Osmolality Calculated 281 mOsm/kg (285-295); Potassium 4.3 mmol/L (3.5-5.1); Sodium 136 mmol/L (136-145); Total Bilirubin 0.3 mg/dL (0.15-1.2)
[2022-02-03] MEDS: ipratropium-albuterol 3 mL Neb INHALATION ×2 (19:12→23:11)
--- NOTE | 2022-02-03 19:13 | ECG_ITS ---
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 Measurements Intervals [place] Rate: 63 P: [place]: QRS: 38 QRSD: 96 T: 58 QT: 462 QTc: 475 Interpretive Statements SINUS RHYTHM POSSIBLE LATERAL MYOCARDIAL INFARCTION , PROBABLY OLD [30 ms Q WAVE IN I/aVL/V5/V6] Compared to ECG 02/03/2022 17:18:04 Myocardial infarct finding now present Electronically Signed On 02-04-2022 19:44:55 CDT by Gui Conway M.D. [email or web address] [email or web address] [email or web address] [id number] f
[2022-02-03 19:38] LABS: Troponin 5 2HR 9.47 ng/L (0-10)
--- NOTE | 2022-02-03 19:40 | PM.HP ---
Providers/Chief Complaint Admitting Physician: Rehan Pedersen Primary Care Provider: Afia Barrett NP Chief Complaint: CHEST PAIN; SOB History of Present Illness The patient is a 56-year-old female who presents with chief Brea dyspnea which started approximately 24 hours prior to hospitalization. She states it was of gradual onset. She admits to wheeze along with her dyspnea. She denies fever, rigors, nausea, vomiting, cough, abdominal pain, diarrhea, myalgia, chest pain, peripheral edema, a no dyspnea, dysgeusia, headache. Of note, the patient has known history of COPD for which she is O2 dependent at 3-4 L. The patient continues to smoke. The patient was admitted/hospitalized only 2 weeks prior to this hospitalization. She presents for further evaluation Review of Systems General: Reports: 10 or more systems reviewed and unremarkable except in HPI and below Medications/Allergies Home Medications Medication Instructions Recorded Confirmed Last Taken Type albuterol sulfate 2.5 mg (3 mL) INHALATION Q4H PRN 10/09/20 02/03/22 02/03/22 Rx #90 ml atorvastatin 40 mg tablet 40 mg PO DAILY #30 tab 12/05/20 02/03/22 02/02/22 Rx carvedilol 25 mg tablet 25 mg PO BID #60 tab 12/05/20 02/03/22 02/03/22 Rx pantoprazole 40 mg tablet,delayed 40 mg PO DAILY #30 tab 12/05/20 02/03/22 02/03/22 Rx release Nebulizer machine #1 ea 12/06/20 02/03/22 Unknown Rx levothyroxine 100 mcg tablet 100 mcg PO DAILY #90 tab 12/15/20 02/03/22 02/03/22 Rx hydroxyzine HCl 25 mg tablet 25 mg PO QID PRN #120 tab 01/17/21 02/03/22 01/19/22 18:00 Rx furosemide 20 mg tablet (Lasix) 20 mg PO DAILY #30 tab 01/29/21 02/03/22 02/03/22 Rx nitroglycerin 0.4 mg sublingual 0.4 mg SUBLINGUAL Q5M PRN #30 tab 01/31/21 02/03/22 01/20/22 02:00 Rx tablet clonidine HCl 0.1 mg tablet 0.1 mg PO DAILY PRN #90 tab 03/06/21 02/03/22 02/03/22 Rx 0.2 MG TODAY verapamil 180 mg 24 hr 180 mg PO DAILY #90 cap 10/31/21 02/03/22 02/03/22 Rx capsule,extended release prednisone 10 mg tablet 10 mg PO DAILY 12/11/21 02/03/22 02/03/22 History triamcinolone acetonide 0.1 % See Rx Instructions .ROUTE 12/26/21 02/03/22 01/09/22 10:00 Rx topical ointment .COMPLEX #30 g fluoxetine 20 mg capsule (Prozac) 20 mg PO BID 01/04/22 02/03/22 02/03/22 History methotrexate sodium 2.5 mg tablet See Rx Instructions PO Q7D #30 tab 01/07/22 02/03/22 01/27/22 Rx 3 TABS albuterol sulfate 90 mcg/actuation See Rx Instructions .ROUTE 01/18/22 02/03/22 02/03/22 Rx aerosol inhaler .COMPLEX #8.5 g fluticasone fur. 100 mcg-umeclid 1 inh INHALATION DAILY #28 each 01/18/22 02/03/22 02/03/22 Rx 62.5 mcg-vilant 25 mcg inhalat.powder (Trelegy Ellipta) folic acid 1 mg tablet 1 mg PO DAILY 01/20/22 02/03/22 02/03/22 History potassium chloride 10 mEq 10 meq PO DAILY #90 tab 01/28/22 02/03/22 02/03/22 Rx tablet,extended release cholecalciferol (vitamin D3) 50 2,000 unit PO DAILY #30 tab 01/29/22 02/03/22 02/03/22 Rx mcg (2,000 unit) tablet alprazolam 0.25 mg tablet (Xanax) 0.25 mg PO DAILY PRN 02/03/22 02/03/22 Unknown History clopidogrel 75 mg tablet 75 mg PO DAILY 02/03/22 02/03/22 02/03/22 History Allergies Allergy/AdvReac Type Severity Reaction Status Date / Time sertraline [From Zoloft] Allergy Unknown Unknown Verified 01/18/22 10:19 aspirin Allergy Unknown Verified 01/18/22 10:19 buspirone [From BuSpar] Allergy Unknown Verified 01/18/22 10:19 codeine Allergy Unknown Verified 01/18/22 10:19 duloxetine Allergy Unknown Verified 01/18/22 10:19 gabapentin [From Neurontin] Allergy Unknown Verified 01/18/22 10:19 ibuprofen Allergy UNKNOWN Verified 01/18/22 10:19 iodine Allergy Unknown Verified 01/18/22 10:19 ketorolac [From Toradol] Allergy UNKNOWN Verified 01/18/22 10:19 lisinopril Allergy Unknown Verified 01/18/22 10:19 Penicillins Allergy Unknown Verified 01/18/22 10:19 pregabalin [Lyrica] Allergy Unknown Verified 01/18/22 10:19 Sulfa (Sulfonamide Allergy Unknown Verified 01/18/22 10:19 Antibiotics) tizanidine Allergy Unknown Verified 01/18/22 10:19 tramadol Allergy Unknown Verified 01/18/22 10:19 varenicline [From Chantix] Allergy UNKNOWN Verified 01/18/22 10:19 venlafaxine Allergy Unknown Verified 01/18/22 10:19 PFSH Acute PFSH: Medical History Aortic regurgitation Bereavement counseling Eczema Essential (primary) hypertension Fibromyalgia High risk medication use Hyperlipidemia Immunization counseling Inflammatory arthritis Psychiatric care Seronegative rheumatoid arthritis Surgical History H/O breast biopsy H/O esophagogastroduodenoscopy (11/07/20) H/O thyroidectomy History of tonsillectomy Hx of cholecystectomy Status post colonoscopy (11/07/20) Family History Mother Rheumatoid arthritis Father Rheumatoid arthritis Leukemia Denies family history of Lupus Social History Smoking and tobacco status: current every day smoker cigarettes Packs smoked per day: 0.25 Years cigarettes smoked: 25 [ Other cigarette details: 2ppd x 25 years, currently trying to quit] Quit status (tobacco): not considering quitting Second hand smoke exposure: Yes Alcohol intake: never Marital status: Current occupational status: disabled History of recent travel: No Current gender identity: Female Vitals/I&O/Wt Last Vital Signs Temp 97.9 F 02/03/22 17:10 Pulse 74 02/03/22 19:12 Resp 24 H 02/03/22 19:12 BP 119/65 02/03/22 17:48 Pulse Ox 95 02/03/22 19:12 Weight last 48 hrs Weight 81.647 kg Physical Exam Narrative: General: -Alert -No acute distress -No dyspnea -No tachypnea Head: -Atraumatic -Normocephalic Eyes: -Pupils equally round and reactive to light and accommodation -Extraocular muscles intact Neurological: -Cranial nerves II-XII intact Neck: -No jugular venous distention -No thyromegaly -No cervical lymphadenopathy Heart: -Regular rate -Regular rhythm -No murmurs -No gallops -No rubs Lungs: -No wheeze -No rhonchi -No rales ? Abdomen: -Normal bowel sounds in all four quadrants -No rebound -No guarding -No tenderness Extremities: -2/4 pulse in all four extremities -No clubbing -No cyanosis -No edema -No calf tenderness present bilaterally -Negative Dena?s sign bilaterally Musculoskeletal: -5/5 bilateral upper extremity strength -5/5 bilateral lower extremity strength -Sensorium of bilateral upper extremities are equal and intact -Sensorium of bilateral lower extremities are equal and intact ? Additional Details / Additional Findings / Exceptions / Miscellaneous: Data : 02/03/22 17:27 02/03/22 17:27 A&P Assessment and plan (1) Acute exacerbation of chronic obstructive airways disease: Status: Acute Plan COPD exacerbation. Patient is a typically O2 dependent at 3-4 L/min via nasal cannula. The patient continues to smoke. Cymetra 6 Mill grams IV every 8 hours plus DuoNeb every 4 hours plus doxycycline 100 Mill grams IV twice a day. The patient is currently on BiPAP for which we will attempt to wean her off of Fibromyalgia History of thyroidectomy with resultant hypothyroidism Depression Seronegative rheumatoid arthritis Muscle spasm Anxiety Diverticulosis Eczema Psoriasis Coronary artery disease GERD. Protonix 40 Mill cans by mouth daily Hyperlipidemia Hypertension Obesity. The patient will be counseled regarding lifestyle modification Smoker. The patient has been counseled regarding smoking cessation History of nephrolithiasis History of DVT DVT Proflex is. Lovenox 40 Mill grams subcu tensely daily Attestations Medical Necessity Statement*: The patient's anticipated length of stay is greater than 2 midnights for treatment of her COPD exacerbation Coding Level of Care Code Acute Senior Litigation Paralegal for Chg Fwd Diagnoses Acute exacerbation of chronic obstructive airways disease J44.1
--- NOTE | 2022-02-03 20:43 | PC.NURSE ---
pt arrived to unit from ED via stretcher at 20:10. oriented to room, bed, current POC. pt states having pain to lower back, neck, chest and (L)shoulder. home medications confirmed with pt and medication bottles. notified Dr Webster at this time home medications accurately verified and ready for reconciliation. also notified of pt request for percocet as that worked really well last time I was here, or morphine thru my IV as that works really well too , MD states no analgesia stronger than Tylenol at this time.
[2022-02-03] MEDS: enoxaparin 40 mg/0.4 mL Syringe SUBCUT (21:44)
--- NOTE | 2022-02-03 23:13 | ECG_ITS ---
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 Measurements Intervals [place] Rate: 63 P: [place]: QRS: 38 QRSD: 96 T: 58 QT: 462 QTc: 475 Interpretive Statements SINUS RHYTHM POSSIBLE LATERAL MYOCARDIAL INFARCTION , PROBABLY OLD [30 ms Q WAVE IN I/aVL/V5/V6] ABNORMAL RHYTHM ECG INTERPRETATION BASED ON A DEFAULT AGE OF 40 YEARS Compared to ECG 02/03/2022 17:18:04 Myocardial infarct finding now present Electronically Signed On 02-04-2022 19:45:08 CDT by Gui Conway M.D. [id number] f
[2022-02-03 23:29] LABS: Troponin 5 6HR 7.35 ng/L (0-10)
[2022-02-04] VITALS (18 sets, daily range): BP systolic 112–187; BP diastolic 59–84; PULSE 55–87; RESP 17–30; TEMP 36.3–36.7; O2SAT 92–98
[2022-02-04 00:44] LABS: Adenovirus Not Detected (NOT DETECT); Chlamydia Pneumoniae Not Detected (NOT DETECT); Coronavirus 229E,HKU1,NL63,OC4 Not Detected (NOT DETECT); Human Metapneumovirus Not Detected (NOT DETECT); Human Rhinovirus/Enterovirus Not Detected (NOT DETECT); Influenza A Not Detected (NOT DETECT); Influenza A H1 Not Detected (NOT DETECT); Influenza A H1-2009 Not Detected (NOT DETECT); Influenza A H3 Not Detected (NOT DETECT); Influenza B Not Detected (NOT DETECT); Mycoplasma Pneumoniae Not Detected (NOT DETECT); Parainfluenza Virus Type 1 Not Detected (NOT DETECT); Parainfluenza Virus Type 2 Not Detected (NOT DETECT); Parainfluenza Virus Type 3 Detected (NOT DETECT); Parainfluenza Virus Type 4 Not Detected (NOT DETECT); Respiratory Syncytial Virus A Not Detected (NOT DETECT); Respiratory Syncytial Virus B Not Detected (NOT DETECT); SARS-COV-2 Not Detected (NOT DETECT)
[2022-02-04 02:46] LABS: Parainfluenza Virus Type 1 Not Detected (NOT DETECT); Parainfluenza Virus Type 2 Not Detected (NOT DETECT); Parainfluenza Virus Type 3 Detected (NOT DETECT); Parainfluenza Virus Type 4 Not Detected (NOT DETECT); Results from Genmark
[2022-02-04] MEDS: ipratropium-albuterol 3 mL Neb INHALATION ×6 (03:10→23:21)
[2022-02-04 04:39] LABS: Basophils % 0.1 %; Hematocrit 39.7 % (37.0-47.0); Hemoglobin 12.6 g/dL (11.5-15.3); Lymphocytes # 0.7 10^3/uL (0.8-4.8); Lymphocytes % 6.6 %; Mean Corpuscular HGB Conc 31.7 g/dL (30.0-36.0); Mean Corpuscular Hemoglobin 30.1 pg (28.0-34.0); Mean Corpuscular Volume 94.7 fl (81-99); Mean Platelet Volume 10.4 fL (7.4-10.4); Monocytes # 0.1 10^3/uL (0.2-0.9); Monocytes % 0.8 %; Neutrophils # 9.16 10^3/uL (1.8-7.7); Neutrophils % 91.8 %; Nucleated Red Blood Cells % 0 %; Platelet Count 236 10^3/cmm (130-400); Red Blood Count 4.19 10^6/uL (4.1-5.3); Red Cell Distribution Width 15.1 % (12.1-15.1)
--- NOTE | 2022-02-04 07:29 | PC.NURSE ---
Bedside report received from Genesis ARMSTRONG at this time.
[2022-02-04] MEDS: clopidogrel 75 mg Tablet PO (08:05)
[2022-02-04] MEDS: doxycycline 100 mg Tablet PO ×2 (08:05→18:16)
[2022-02-04] MEDS: pantoprazole DR 40 mg Tablet PO (08:05)
[2022-02-04] MEDS: levothyroxine 100 mcg Tablet PO (08:05)
[2022-02-04] MEDS: FUROsemide 20 mg Tablet PO (08:05)
[2022-02-04] MEDS: carvedilol 25 mg Tablet PO ×2 (08:06→20:11)
[2022-02-04] MEDS: verapamil ER 180 mg Tablet PO (09:09)
[2022-02-04] MEDS: acetaminophen 325 mg Tablet 650 MG PO (09:09)
[2022-02-04] MEDS: morphine 4 mg/mL SDV 1 mL 2 MG IVP ×4 (09:39→22:13)
--- NOTE | 2022-02-04 09:54 | PC.CHAP ---
Pastoral Care Encounter/Spiritual Assessment Type of Contact [] Declined outside sales advertising executive visit [] Patient/Family/Request visit [] Outpatient visit [] Follow-up visit [] Physician referral [] Code/Alert [x] Routine visit [] Staff referral [] Actively dying [] Patient sleeping [] Family support [] [] Out of room [] Palliative care [] [] Receiving care in room [] Pre-surgical visit [] Trauma [] Long length of stay [] ICU visit [] Other: Relational/Emotional Strength [x] Patient feels connected with others/family/visitors/staff [] Distress [] Loneliness/isolation [] Abandonment Spirituality of Patient [x] Person of Inge [] Attends Cheondoism of their Inge [x] Believes in Prayer [] Reads Bible or Yarsani materials [] There are Spiritual issues to be addressed [place] Interventions [x] Prayer [] Active listening [] Non-anxious presence [] Spiritual/emotional support [] Crisis/trauma care [] Spiritual counseling [] Bereavement support [] Provided bereavement packet [] Provided Bible/devotional materials [] Provided toy/stuffed animal, coloring book to patient or family member [] Provided Communion [] Anointing/[place] [] Salvation [x] Completed spiritual assessment [] Other: Impact on Illness or Injury [] Angry [] Fearful [] Anxious [] Often cries [] Exhaustion [] Unable to work [] Unable to attend judaism [] Unable to walk/stand [] Unable to read [] Unable to drive [] Unable to eat/drink [] Unable to sleep [] Unable to be with family [] Patient intubated [] Other: Summary Time spent with patient 5 min
[2022-02-04 10:00] LABS: ABG PH Result 7.31 (7.35-7.45); Arterial Blood Gas Hematocrit 39.6 % (37-47); Base Excess ABG 4.3 mmol/L (-2.0-2.0); Blood Gas Allen Test Pos; Blood Gas Sample Type Arterial; HCO3 ABG 32.4 mmol/L (22-26)
[2022-02-04 10:01] LABS: ABG PCO2 64.2 mmHg (35-45); Blood Gas Operator Identificat ED; Blood Gas Sample Site Radial, right; Oxygen Device BIPAP
--- NOTE | 2022-02-04 10:13 | PM.PN ---
Subjective Subjective: This morning patient was experiencing conversational dyspnea I requested ABG and asked nurse to put her back on the BiPAP, she was complaining of chest pain, on physical examination it is reproducible, troponins are nonsignificant, EKG showing sinus rhythm I do not agree with atrial flutter reading Patient is still smoking, parainfluenza 3 detected, afebrile Vitals/I&O/Wt Last Vital Signs Temp 98.0 F 02/04/22 07:10 Pulse 82 02/04/22 07:10 Resp 18 02/04/22 09:39 BP 187/84 02/04/22 07:10 Pulse Ox 95 02/04/22 09:39 02/03/22 02/04/22 02/04/22 22:59 06:59 14:59 Intake Total 200 / 200 Output Total 0 / 0 Balance 0 / 0 200 / 200 Weight last 48 hrs Weight 85.457 kg Weight 81.647 kg Physical Exam Narrative: Patient was in semi-Morales position On 3.5 L nasal cannula Has conversational dyspnea She is not using respiratory sensory muscles Cushingoid appearance Abdomen distended, no signs of fluid overload S1, S2 Bilateral breath sounds with expiratory wheezing Nonfocal neuro exam Appropriate mood and affect Data : 02/04/22 04:15 02/03/22 17:27 A&P Assessment and plan (1) Acute exacerbation of chronic obstructive airways disease: Status: Acute (2) Respiratory failure: Status: Acute Qualifiers: Chronicity: acute on chronic Respiratory failure complication: hypoxia and hypercapnia Qualified Code(s): J96.21 - Acute and chronic respiratory failure with hypoxia; J96.22 - Acute and chronic respiratory failure with hypercapnia (3) Anxiety: Status: Acute (4) Respiratory failure with hypoxia and hypercapnia: Status: Acute Plan Acute on chronic hypoxic hypercapnic respiratory failure ABG showed improvement of PCO2 and pH However it is not completely normal yet, I would like her to keep using BiPAP with breaks in order to eat She is complaining of headache Nonfocal neuro exam She is not confused She does see Dr. Garcia outpatient I would continue on doxycycline for now along steroids she does have active wheezing Atypical chest pain Reproducible chest pain I have given her morphine Troponin unremarkable EKG showing sinus rhythm I do not agree with atrial flutter computer read Hypertensive urgency: I have resumed her antihypertensive regimen including diuretics Patient is full code Hypothyroidism continue levothyroxine Patient does not have previous history of OR or coronary stents Cardiac diet DVT prophylaxis on board with Lovenox Check D-dimer Counseled on smoking cessation Attestations Medical Necessity Statement*: Discharge tomorrow if clinically stable Time Spent in Patient Care: 30mins Coding Level of Care Code Acute Building Repair Maintenance Supervisor for Chg Fwd Diagnoses Acute exacerbation of chronic obstructive airways disease J44.1 Respiratory failure J96.21; J96.22 Chronicity: acute on chronic Respiratory failure complication: hypoxia and hypercapnia Anxiety F41.9 Respiratory failure with hypoxia and hypercapnia J96.91; J96.92
[2022-02-04 11:15] LABS: D Dimer 0.44 ug/mIFEU (0-0.59)
[2022-02-04] MEDS: enoxaparin 40 mg/0.4 mL Syringe SUBCUT (20:11)
[2022-02-05] VITALS (23 sets, daily range): BP systolic 120–152; BP diastolic 63–78; PULSE 52–88; RESP 15–20; TEMP 36.3–36.9; O2SAT 92–98
[2022-02-05] MEDS: morphine 4 mg/mL SDV 1 mL 2 MG IVP ×3 (02:15→10:58)
[2022-02-05] MEDS: ipratropium-albuterol 3 mL Neb INHALATION ×6 (04:00→23:27)
[2022-02-05 04:10] LABS: Arterial Blood Gas Hematocrit 38.1 % (37-47); Base Excess ABG 10.8 mmol/L (-2.0-2.0); Blood Gas Allen Test Pos; Blood Gas Sample Site Radial, right; Blood Gas Sample Type Arterial; Oxygen Device BIPAP; PO2 ABG 92.1 mmHg (80.0-100.0)
[2022-02-05 04:12] LABS: ABG PCO2 61.8 mmHg (35-45)
[2022-02-05 10:09] LABS: Basophils % 0.2 %; Hematocrit 42.3 % (37.0-47.0); Hemoglobin 12.7 g/dL (11.5-15.3); Lymphocytes # 1.2 10^3/uL (0.8-4.8); Lymphocytes % 9.7 %; Mean Corpuscular Hemoglobin 29.5 pg (28.0-34.0); Mean Corpuscular Volume 98.4 fl (81-99); Mean Platelet Volume 10.2 fL (7.4-10.4); Monocytes # 0.2 10^3/uL (0.2-0.9); Monocytes % 1.7 %; Neutrophils # 10.42 10^3/uL (1.8-7.7); Neutrophils % 87.4 %; Nucleated Red Blood Cells % 0 %; Platelet Count 270 10^3/cmm (130-400); Red Cell Distribution Width 14.8 % (12.1-15.1); White Blood Count 11.9 10^3/uL (4.0-10.0)
[2022-02-05 10:35] LABS: Anion Gap 12.9 (5-19); Blood Urea Nitrogen 15 mg/dL (6-20); Calcium 9.6 mg/dL (8.5-10.5); Carbon Dioxide 32 mmol/L (22-29); Chloride 94 mmol/L (98-107); Glomerular Filtration Rate 85.9 mL/min (90-130); Glucose 204 mg/dL (65-115); Osmolality Calculated 287 mOsm/kg (285-295); Potassium 3.9 mmol/L (3.5-5.1); Sodium 135 mmol/L (136-145)
--- NOTE | 2022-02-05 10:39 | P.PN_ITS ---
Subjective Subjective: Patient is still wheezing however endorsing feeling better, she would qualify for BiPAP, CPAP would not treat her hypercapnia, I do believe she would immensely benefit from the use of BiPAP at home, she has hypercapnia evident on her ABG, she has severe COPD, she qualified for CPAP in the past, wi ll try to get overnight pulse ox study Previous ABG 2020 did show oxygen level below 60 I have requested case management specialist for BiPAP arrangement at the time of discharge ABG today showing improvement in hypercapnia with use of BiPAP, pH 7.4 Vitals/I&O/Wt Last Vital Signs Temp 97.4 F L 02/05/22 07:20 Pulse 88 02/05/22 09:02 Resp 18 02/05/22 08:00 BP 143/73 02/05/22 07:20 Pulse Ox 95 02/05/22 08:00 02/04/22 02/05/22 02/05/22 22:59 06:59 14:59 Intake Total 320 / 760 240 / 1000 240 / 240 Output Total 900 / 1600 800 / 2400 Balance -580 / -840 -560 / -1400 240 / 240 Weight last 48 hrs Weight 85.457 kg Weight 81.647 kg Physical Exam 2 Narrative: Patient is on BiPAP FiO2 30% Still active wheezing however slightly improved as compared to yesterday Soft abdomen No signs of edema Edema, PERRLA S1, S2 No signs of fluid overload Patient is awake and alert We communicated while she was on BiPAP today Data : 02/04/22 04:15 02/05/22 09:41 A&P Assessment and plan (1) Respiratory failure with hypoxia and hypercapnia: Status: Acute (2) Anxiety: Status: Acute (3) Aortic regurgitation: Status: Acute Qualifiers: Cardiac valve disease etiology: etiology unspecified Qualified Code(s): I35.1 - Nonrheumatic aortic (valve) insufficiency (4) Hypothyroidism: Status: Acute Qualifiers: Hypothyroidism type: other Qualified Code(s): E03.8 - Other specified hypothyroidism (5) GERD without esophagitis: Status: Acute Plan COPD exacerbation Active wheezing, however slightly improved as compared to yesterday add budesonide Hypoxia and hypercapnia improved with use of BiPAP It is prudent to have BiPAP at home to prevent readmissions For now continue doxycycline She has been afebrile Hypercapnia has improved Current FiO2 on BiPAP is 30% Atypical chest pain: Resolved Hypertensive urgency: Improved She is full code Continue levothyroxine Cardiac consistent carb diet DVT prophylaxis Lovenox Attestations Medical Necessity Statement*: Planning to discharge her tomorrow if her wheezing improves on BiPAP Time Spent in Patient Care: 30 Coding Level of Care Code Acute Job Counselor for Chg Fwd Diagnoses Respiratory failure with hypoxia and hypercapnia J96.91; J96.92 Anxiety F41.9 Aortic regurgitation I35.1 Cardiac valve disease etiology: etiology unspecified Hypothyroidism E03.8 Hypothyroidism type: other GERD without esophagitis K21.9
[2022-02-05] MEDS: levothyroxine 100 mcg Tablet PO (10:45)
[2022-02-05] MEDS: pantoprazole DR 40 mg Tablet PO (10:45)
[2022-02-05] MEDS: FUROsemide 20 mg Tablet PO (10:46)
[2022-02-05] MEDS: doxycycline 100 mg Tablet PO ×2 (10:46→17:19)
[2022-02-05] MEDS: verapamil ER 180 mg Tablet PO (10:46)
[2022-02-05] MEDS: clopidogrel 75 mg Tablet PO (10:46)
[2022-02-05] MEDS: carvedilol 25 mg Tablet PO ×2 (10:46→20:17)
[2022-02-05] MEDS: budesonide 0.5 mg/2 mL Neb INHALATION ×2 (11:12→19:31)
[2022-02-05 13:12] LABS: Slide Review Slide Review Perform
[2022-02-05] MEDS: HYDROcodone-acetaminophen 5-325 mg Tablet 1 TAB PO ×2 (15:25→20:17)
[2022-02-05] MEDS: ALPRAZolam 0.5 mg Tablet 0.25 MG PO (17:22)
--- NOTE | 2022-02-05 19:32 | PC.NURSE ---
Patient to have overnight O2 study done off of Bipap until O2 has several drops
[2022-02-05] MEDS: enoxaparin 40 mg/0.4 mL Syringe SUBCUT (20:18)
[2022-02-06] VITALS (7 sets, daily range): BP systolic 100–161; BP diastolic 54–67; PULSE 54–78; RESP 16–18; TEMP 36.4–36.9; O2SAT 92–99
[2022-02-06] MEDS: HYDROcodone-acetaminophen 5-325 mg Tablet 1 TAB PO ×3 (00:20→10:23)
[2022-02-06] MEDS: FUROsemide 20 mg Tablet PO (08:25)
[2022-02-06] MEDS: doxycycline 100 mg Tablet PO (08:25)
[2022-02-06] MEDS: pantoprazole DR 40 mg Tablet PO (08:25)
[2022-02-06] MEDS: clopidogrel 75 mg Tablet PO (08:25)
[2022-02-06] MEDS: levothyroxine 100 mcg Tablet PO (08:25)
[2022-02-06] MEDS: verapamil ER 180 mg Tablet PO (08:26)
[2022-02-06] MEDS: carvedilol 25 mg Tablet PO (08:27)
[2022-02-06] MEDS: ipratropium-albuterol 3 mL Neb INHALATION (08:36)
[2022-02-06] MEDS: budesonide 0.5 mg/2 mL Neb INHALATION (08:36)
--- NOTE | 2022-02-06 09:12 | PC.SOCIAL ---
IMM Update Pg. 2 of IMM updated and reviewed with patient, who verbalized understanding. Copy provided.
--- NOTE | 2022-02-06 10:50 | PM.DCS ---
Discharge Providers Date of Admission: 02/03/22 18:36 Date of Discharge: February 06, 2022 Attending Provider at Admission: Rehan Pedersen Attending Provider at Discharge: Jennifer Bailey MD Primary Care Provider: Afia Barrett NP Diagnoses at Discharge Discharge Diagnosis (1) Respiratory failure with hypoxia and hypercapnia: Status: Acute (2) Anxiety: Status: Acute (3) Aortic regurgitation: Status: Acute Qualifiers: Cardiac valve disease etiology: etiology unspecified Qualified Code(s): I35.1 - Nonrheumatic aortic (valve) insufficiency (4) Hypothyroidism: Status: Acute Qualifiers: Hypothyroidism type: other Qualified Code(s): E03.8 - Other specified hypothyroidism (5) GERD without esophagitis: Status: Acute Reason for Visit Reason for Visit: CHEST PAIN; SOB Hospital Course Hospital Course 56-year-old female who has known history of COPD, 4 L oxygen dependent at home, active smoker, patient is stating that after recent emotional stress because of her son's she started smoking which made her shortness of breath worse. She came to the hospital and was diagnosed with COPD exacerbation, she was hypercapnic 76, her pH and PCO2 improved to 61.8 on BiPAP, chest x-ray did not show active consolidation however she was kept on doxycycline, she received budesonide 0.5 mg twice daily along high-dose IV steroids which improved her wheezing. I requested overnight pulse oximetry in order to have her qualify for the BiPAP at home, she did not meet criteria for BiPAP as per her insurance however I am concerned that she will need BiPAP down the road, she does have an appointment with Dr. Garcia on February 21 for pulmonary function test, patient is stating that she had CPAP in the past which insurance took away because of her noncompliance however she is stating that she was using it on daily basis but noticed her machine was troubleshooting a lot that probably triggered the insurance company that she is not using it at nighttime. This makes it difficult to have her BiPAP approved regional branch manager has conveyed these concerns to her as well. For now I will discharge her on Medrol pack, doxycycline, albuterol nebulizer and close follow-up with Dr. Garcia. Patient is motivated to quit smoking. Physical Exam Narrative: Cushingoid appearance Morbidly obese No active signs of heart failure Abdomen distended with obesity Awake and alert Wheezing has improved significantly Doing well on 2 L nasal cannula No conversational dyspnea today Discharge Data Studies Completed and Pending Completed Studies During Hospitalization Category Date Time Status XR chest 1V portable [id number] Stat Exams 02/03/22 17:13 Completed Radiology Impressions Chest X-Ray 02/03/22 17:13 IMPRESSION: No acute findings. Laboratory Results WBC 11.9 10^3/uL (4.0-10.0) H 02/05/22 09:41 RBC 4.30 10^6/uL (4.1-5.3) 02/05/22 09:41 Hgb 12.7 g/dL (11.5-15.3) 02/05/22 09:41 Hct 42.3 % (37.0-47.0) 02/05/22 09:41 MCV 98.4 fl (81-99) 02/05/22 09:41 MCH 29.5 pg (28.0-34.0) 02/05/22 09:41 MCHC 30.0 g/dL (30.0-36.0) D 02/05/22 09:41 RDW 14.8 % (12.1-15.1) 02/05/22 09:41 Plt Count 270 10^3/cmm (130-400) 02/05/22 09:41 MPV 10.2 fL (7.4-10.4) 02/05/22 09:41 Neut % (Auto) 87.4 % 02/05/22 09:41 Lymph % (Auto) 9.7 % 02/05/22 09:41 Hale % (Auto) 1.7 % 02/05/22 09:41 Eos % (Auto) 0.0 % 02/05/22 09:41 Baso % (Auto) 0.2 % 02/05/22 09:41 Neut # (Auto) 10.42 10^3/uL (1.8-7.7) H 02/05/22 09:41 Lymph # (Auto) 1.2 10^3/uL (0.8-4.8) 02/05/22 09:41 Hale # (Auto) 0.2 10^3/uL (0.2-0.9) 02/05/22 09:41 Eos # (Auto) 0.0 10^3/uL (0.0-0.8) 02/05/22 09:41 Baso # (Auto) 0.0 10^3/uL (0.0-0.1) 02/05/22 09:41 Nucleated RBC % (auto) 0 % 02/05/22 09:41 Nucleated RBCs # 0.0 /100WBC 02/05/22 09:41 PT 11.90 SECONDS (12.1-14.9) L 02/03/22 17:27 INR 0.85 (0.8-1.2) 02/03/22 17:27 D-Dimer 0.44 ug/mIFEU (0-0.59) 02/04/22 10:45 Specimen Type Arterial 02/05/22 04:00 Sample Site Radial, right 02/05/22 04:00 ABG pH 7.40 (7.35-7.45) 02/05/22 04:00 ABG pCO2 61.8 mmHg (35-45) H* 02/05/22 04:00 ABG pO2 92.1 mmHg (80.0-100.0) 02/05/22 04:00 ABG HCO3 38.0 mmol/L (22-26) H 02/05/22 04:00 ABG Base Excess 10.8 mmol/L (-2.0-2.0) H 02/05/22 04:00 Rudy Test Pos 02/05/22 04:00 Hematocrit 38.1 % (37-47) 02/05/22 04:00 O2 Delivery Device Bipap 02/05/22 04:00 O2 Liters/Min 4.0 % 02/03/22 17:30 FiO2 30.0 % 02/05/22 04:00 Payroll Administrator ID [email or web address] 02/05/22 04:00 Sodium 135 mmol/L (136-145) L 02/05/22 09:41 Potassium 3.9 mmol/L (3.5-5.1) 02/05/22 09:41 Chloride 94 mmol/L (98-107) L 02/05/22 09:41 Carbon Dioxide 32 mmol/L (22-29) H 02/05/22 09:41 Anion Gap 12.9 (5-19) 02/05/22 09:41 BUN 15 mg/dL (6-20) 02/05/22 09:41 Creatinine 0.7 mg/dL (0.5-0.9) 02/05/22 09:41 GFR Calculation 85.9 mL/min (90-130) L 02/05/22 09:41 Glucose 204 mg/dL (65-115) H 02/05/22 09:41 Calculated Osmolality 287 mOsm/kg (285-295) 02/05/22 09:41 Calcium 9.6 mg/dL (8.5-10.5) 02/05/22 09:41 Total Bilirubin 0.3 mg/dL (0.15-1.2) 02/03/22 17:27 AST 12 U/L (0-32) 02/03/22 17: ALT 13 U/L (0-33) 02/03/22 17:27 Alkaline Phosphatase 83 IU/L (35-105) 02/03/22 17:27 Troponin T Baseline 10 ng/L (0-10) 02/03/22 17:27 Troponin T 120 Minute 9.47 ng/L (0-10) 02/03/22 19:10 Delta Troponin T Not Reportable 02/03/22 19:10 Troponin T Hi Sens 6Hr 7.35 ng/L (0-10) 02/03/22 23:05 Troponin T Hi Sens 6Hr Delta Not Reportable 02/03/22 23:05 NT-Pro-B Natriuret Pep 427 pg/mL (0-125) H 02/03/22 17:27 Total Protein 7.0 g/dL (6.6-8.7) 02/03/22 17:27 Albumin 4.1 g/dL (3.5-5.2) 02/03/22 17:27 Globulin 2.9 g/dL (1.3-4.6) 02/03/22 17:27 Coronavirus 229E (PCR) Not detected (NOT DETECT) 02/03/22 19:25 Parainfluenza 1 (PCR) Not detected (NOT DETECT) 02/04/22 02:46 Parainfluenza 2 (PCR) Not detected (NOT DETECT) 02/04/22 02:46 Parainfluenza 3 (PCR) Detected (NOT DETECT) A 02/04/22 02:46 Parainfluenza 4 (PCR) Not detected (NOT DETECT) 02/04/22 02:46 SARS-CoV-2 (PCR) Not detected (NOT DETECT) 02/03/22 19:25 Vitals Last Vital Signs Temp 97.6 F 02/06/22 07:11 Pulse 78 02/06/22 08:45 Resp 18 02/06/22 08:40 BP 161/67 02/06/22 07:11 Pulse Ox 96 02/06/22 08:40 Discharge Plan Discharge Patient Disposition: Home Condition: Stable Prescriptions: New albuterol sulfate 90 mcg/actuation HFA aerosol inhaler 2 inh inhalation Q8H PRN (Reason: shortness of breath or wheezing) Qty: 8.5 3RF doxycycline hyclate 100 mg tablet 100 mg PO BID 3 Days Qty: 6 0RF albuterol sulfate 1.25 mg/3 mL solution for nebulization 1.25 mg inhalation Q8H PRN (Reason: shortness of breath or wheezing) Qty: 75 1RF methylprednisolone [Medrol (Addi)] 4 mg tablets,dose pack See Rx Instructions .ROUTE .COMPLEX Qty: 21 0RF Rx Instructions: orally per package directions Continued nitroglycerin 0.4 mg tablet, sublingual 0.4 mg sublingual Q5M PRN (Reason: chest pain) Qty: 30 6RF Rx Instructions: do not exceed 3 doses per episode pantoprazole 40 mg tablet,delayed release (DR/EC) 40 mg PO DAILY Qty: 30 4RF Rx Instructions: An Appt and labs will need to be done before any further refills. atorvastatin 40 mg tablet 40 mg PO DAILY Qty: 30 4RF Rx Instructions: AT 1999 carvedilol 25 mg tablet 25 mg PO BID Qty: 60 4RF Rx Instructions: AT 08, 1999 prednisone 10 mg tablet 10 mg PO DAILY 0RF Hold Instructions: Resume on 01/26/22. resume after prednisone burst Trelegy Ellipta 100-62.5-25 mcg blister with device 1 inh INHALATION DAILY Qty: 28 3RF Rx Instructions: AT 0900 fluoxetine [Prozac] 20 mg capsule 20 mg PO BID 0RF albuterol sulfate 2.5 mg /3 mL (0.083 %) solution for nebulization 2.5 mg INHALATION Q4H PRN (Reason: shortness of breath or wheezing) Qty: 90 3RF (DME) Nebulizer machine See Rx Instructions .Route .MEDSUPPLY Qty: 1 0RF Rx Instructions: As directed levothyroxine 100 mcg tablet 100 mcg PO DAILY Qty: 90 0RF hydroxyzine HCl 25 mg tablet 25 mg PO QID PRN (Reason: anxiety) Qty: 120 1RF Rx Instructions: take also for itching furosemide [Lasix] 20 mg tablet 20 mg PO DAILY Qty: 30 1RF Rx Instructions: AT 0800 clonidine HCl 0.1 mg tablet 0.1 mg PO DAILY PRN (Reason: hypertensive emergency) Qty: 90 1RF Label Comments: Patient states she takes one tablet every morning, then sees how her blood pressure does throughout the day and takes the other two tablets as needed. verapamil 180 mg capsule,ext rel. pellets 24 hr 180 mg PO DAILY Qty: 90 1RF triamcinolone acetonide 0.1 % ointment See Rx Instructions .ROUTE .COMPLEX Qty: 30 3RF Dose Instruction: APPLY TO AFFECTED AREA TWO TIMES DAILY NEEDED Rx Instructions: APPLY TO AFFECTED AREA TWO TIMES DAILY NEEDED methotrexate sodium 2.5 mg tablet See Rx Instructions PO Q7D Qty: 30 3RF Rx Instructions: take 6 tabs once weekly on sundays potassium chloride 10 mEq tablet extended release 10 meq PO DAILY Qty: 90 2RF cholecalciferol (vitamin D3) 50 mcg (2,000 unit) tablet 2,000 unit PO DAILY Qty: 30 0RF Rx Instructions: AT 0800 folic acid 1 mg Tablet 1 mg PO DAILY 0RF clopidogrel 75 mg tablet 75 mg PO DAILY 0RF Xanax 0.25 mg tablet 0.25 mg PO DAILY PRN (Reason: Anxiety) 0RF Discontinued albuterol sulfate 90 mcg/actuation HFA aerosol inhaler See Rx Instructions .ROUTE .COMPLEX Qty: 8.5 3RF Dose Instruction: USE 2 PUFFS FOUR TIMES DAILY NEEDED FOR SHORTNESS OF BREATH OR WHEEZING Rx Instructions: USE 2 PUFFS FOUR TIMES DAILY NEEDED FOR SHORTNESS OF BREATH OR WHEEZING Discharge Orders: Discharge Order (Routine); Ordered 02/06/22 Ordered By: Jennifer Bailey Referrals: [facility] [Other] (Call this # to see if you qualify for in home services. They will ask you a series of questions and assign you points based off your answers. The number of points assigned will determine how much and if you qualify for services. ) Afia Barrett NP [Primary Care Provider] - Datar,Trae Simental MD [Physician] - (already has appt on february 21 for PFTs) Discharge Diet: Cardiac Discharge Activity: Increase activity as tolerated Patient Instructions: How to Stop Smoking (DC), Opioid Safety, Quitting Smoking Discharge Attestations Time Spent in Discharge Care*: less than 30 min Quality Metrics Clinical Quality Measures [ No reported AMI, CVA or VTE this stay] Coding Level of Care Code Acute Chg FW DC note Diagnoses Respiratory failure with hypoxia and hypercapnia J96.91; J96.92 Anxiety F41.9 Aortic regurgitation I35.1 Cardiac valve disease etiology: etiology unspecified Hypothyroidism E03.8 Hypothyroidism type: other GERD without esophagitis K21.9
== END 2022-02-06 11:45 | disposition home or self-care (01) | DRG 190 ==
LOC: ER 18:44 → MEDSURG 19:42
PROVIDERS: Emergency Medicine; Internal Medicine; Admitting Provider Internal Medicine; Emergency Provider Emergency Medicine; PCP Nurse Practitioner Family; Visit Provider Internal Medicine
DX: J44.1 Chronic obstructive pulmonary disease with (acute) exacerbation (principal); J96.22 Acute and chronic respiratory failure with hypercapnia; J96.21 Acute and chronic respiratory failure with hypoxia; F17.210 Nicotine dependence, cigarettes, uncomplicated; I11.0 Hypertensive heart disease with heart failure; I50.9 Heart failure, unspecified; I35.1 Nonrheumatic aortic (valve) insufficiency; M79.7 Fibromyalgia; M06.00 Rheumatoid arthritis without rheumatoid factor, unspecified site; F41.9 Anxiety disorder, unspecified; E89.0 Postprocedural hypothyroidism; Z99.81 Dependence on supplemental oxygen; F32.A Depression, unspecified; I25.10 Atherosclerotic heart disease of native coronary artery without angina pectoris; E78.5 Hyperlipidemia, unspecified; I10 Essential (primary) hypertension; Z79.02 Long term (current) use of antithrombotics/antiplatelets; Z79.51 Long term (current) use of inhaled steroids; Z79.52 Long term (current) use of systemic steroids; Z63.4 Disappearance and death of family member; B34.8 Other viral infections of unspecified site; Z86.718 Personal history of other venous thrombosis and embolism; E66.9 Obesity, unspecified; Z68.34 Body mass index [BMI] 34.0-34.9, adult; K21.9 Gastro-esophageal reflux disease without esophagitis
CPT/HCPCS: 36415; 36600; 71045; 80048; 80053; 82803; 83880; 84484; 85025; 85378; 85610; 87631; 87635; 93005; 94640; 94660; 96372; 96374; 99291; G0378; J1650; J2270; J2930; J7626

== ENCOUNTER 2022-02-21 12:00 | Outpatient (CLI) | payer MEDICARE, MEDICAID, SELFPAY ==
--- NOTE | 2022-02-21 13:06 | PFTS_ITS ---
Date of Study:02/21/22 Date of Dictation: 02/21/2022 MECHANICS: Postbronchodilator forced vital capacity (FVC) is reduced Postbronchodilator forced expiratory volume in one second (FEV1) is severely reduced 40 % FEV1/FVC is reduced. There is significant response to bronchodilators. FLOW VOLUME LOOP: Severe sloping of expiratory limb suggestive of severe airflow obstruction. LUNG VOLUMES: Total lung capacity (TLC) is increased. Residual volume ( RV) is increased suggestive of severe air trapping DIFFUSING CAPACITY FOR CARBON MONOXIDE: Moderately reduced 58 % . INTERPRETATION: The spirometry is suggestive of severe airflow obstruction.? There is significant response to bronchodilators.? Lung volumes are increased suggestive of severe air trapping.? Gas transfer is moderately reduced.? Constellation of findings consistent with severe emphysema.? Correlate clinically. MTDD
== END 2022-02-21 12:01 | disposition home or self-care (01) ==
LOC: RT 12:01
PROVIDERS: PCP Nurse Practitioner Family; Visit Provider Internal Medicine Pulmonary Disease
DX: R91.1 Solitary pulmonary nodule (principal); F17.210 Nicotine dependence, cigarettes, uncomplicated
CPT/HCPCS: 94060; 94618; 94726; 94729; J7611

== ENCOUNTER 2022-03-06 10:05 | Outpatient (CLI) | payer MEDICARE, MEDICAID, SELFPAY ==
[2022-03-06 10:46] LABS: Basophils % 0.2 %; Eosinophils # 0.1 10^3/uL (0.0-0.8); Eosinophils % 1.4 %; Hematocrit 38.7 % (37.0-47.0); Hemoglobin 12.4 g/dL (11.5-15.3); Lymphocytes # 1.3 10^3/uL (0.8-4.8); Lymphocytes % 12.3 %; Mean Corpuscular Hemoglobin 30.5 pg (28.0-34.0); Mean Corpuscular Volume 95.3 fl (81-99); Mean Platelet Volume 9.9 fL (7.4-10.4); Monocytes # 0.9 10^3/uL (0.2-0.9); Monocytes % 8.2 %; Neutrophils # 7.97 10^3/uL (1.8-7.7); Neutrophils % 77.2 %; Nucleated Red Blood Cells % 0 %; Platelet Count 255 10^3/cmm (130-400); Red Blood Count 4.06 10^6/uL (4.1-5.3); Red Cell Distribution Width 14.6 % (12.1-15.1); White Blood Count 10.3 10^3/uL (4.0-10.0)
[2022-03-06 11:13] LABS: Estmated Average Glucose 120; Hemoglobin A1C 5.8 % (4.0-6.0)
[2022-03-06 11:17] LABS: Alanine Aminotransferase 15 U/L (0-33); Albumin Level 4.3 g/dL (3.5-5.2); Alkaline Phosphatase 93 IU/L (35-105); Anion Gap 13.6 (5-19); Aspartate Amino Transferase 11 U/L (0-32); Blood Urea Nitrogen 6 mg/dL (6-20); Carbon Dioxide 34 mmol/L (22-29); Chloride 93 mmol/L (98-107); Globulin 2.6 g/dL (1.3-4.6); Glomerular Filtration Rate 64.3 mL/min (90-130); Glucose 153 mg/dL (65-115); NT Pro B Type Natriuretic Pept 73 pg/mL (0-125); Osmolality Calculated 285 mOsm/kg (285-295); Potassium 3.6 mmol/L (3.5-5.1); Sodium 137 mmol/L (136-145); Thyroid Stimulating Hormone 3.28 uIU/mL (0.27-4.20); Total Bilirubin 0.3 mg/dL (0.15-1.2); Total Protein 6.9 g/dL (6.6-8.7)
== END 2022-03-06 10:06 | disposition home or self-care (01) ==
PROVIDERS: PCP Nurse Practitioner Family; Visit Provider Nurse Practitioner Family
DX: J44.1 Chronic obstructive pulmonary disease with (acute) exacerbation (principal); R51.9 Headache, unspecified; Z79.899 Other long term (current) drug therapy; I10 Essential (primary) hypertension
CPT/HCPCS: 80053; 83036; 83880; 84443; 85025

== ENCOUNTER 2022-03-12 18:58 | Emergency (ER) | payer MEDICARE, MEDICAID, SELFPAY ==
--- NOTE | 2022-03-12 19:01 | XRR_ITS ---
PROCEDURE INFORMATION: Exam: XR Chest Exam date and time: 03/12/2022 7:19 PM Age: 56 years old Clinical indication: Dyspnea; Additional info: SOB TECHNIQUE: Imaging protocol: Radiologic exam of the chest. Views: 1 view. COMPARISON: CR (CHEST, ) 02/03/2022 5:29 PM FINDINGS: Lungs: Unremarkable. No consolidation. Pleural spaces: Unremarkable. No pleural effusion. No pneumothorax. Heart/Mediastinum: Unremarkable. No cardiomegaly. Bones/joints: Unremarkable. XR/XR chest 1V portable [id number] IMPRESSION: No acute findings.
--- NOTE | 2022-03-12 19:02 | ECG_ITS ---
[facility] Test Date: 2022-03-12 Pat Name: Angie Naranjo Department: Room: Gender: Female Pedigree Researcher: : [id number] Requested By: Ghazala Garrett Order Number: [id number] Asa MD: Gui Conway M.D. Measurements Intervals [place] Rate: 79 P: 67 UT: 174 QRS: 0 QRSD: 85 T: 64 QT: 384 QTc: 442 Interpretive Statements SINUS RHYTHM POSSIBLE LEFT ATRIAL ENLARGEMENT [-0.1mV P-WAVE IN V1/V2] Compared to ECG 02/03/2022 23:07:39 Myocardial infarct finding no longer present Electronically Signed On 03-13-2022 17:58:21 CDT by Gui Conway M.D. [email or web address]
[2022-03-12 19:03] VITALS: BP 156/78; PULSE 88; RESP 25; TEMP 36.4; O2SAT 94; BMI 32.9
[2022-03-12 19:11] VITALS: RESP 16
[2022-03-12] MEDS: morphine 4 mg/mL SDV 1 mL IVP (19:11)
[2022-03-12] MEDS: ondansetron 2 mg/ML SDV 2 mL 4 MG IVP (19:11)
[2022-03-12 19:12] LABS: Basophils % 0.2 %; Eosinophils % 0.4 %; Hematocrit 42.2 % (37.0-47.0); Hemoglobin 13.2 g/dL (11.5-15.3); Lymphocytes # 1.3 10^3/uL (0.8-4.8); Lymphocytes % 14.9 %; Mean Corpuscular HGB Conc 31.3 g/dL (30.0-36.0); Mean Corpuscular Hemoglobin 30.2 pg (28.0-34.0); Mean Corpuscular Volume 96.6 fl (81-99); Mean Platelet Volume 9.8 fL (7.4-10.4); Monocytes # 0.6 10^3/uL (0.2-0.9); Monocytes % 7.2 %; Neutrophils % 76.7 %; Nucleated Red Blood Cells % 0 %; Platelet Count 296 10^3/cmm (130-400); Red Blood Count 4.37 10^6/uL (4.1-5.3); Red Cell Distribution Width 14.1 % (12.1-15.1); White Blood Count 8.5 10^3/uL (4.0-10.0)
--- NOTE | 2022-03-12 19:12 | ED_ITS ---
HPI - SOB/Dyspnea General: Chief Complaint: Shortness of Breath/Dyspnea Stated Complaint: resp distress Time Seen by Provider: 03/12/22 18:58 Source: patient and EMS Mode of arrival: EMS Limitations: no limitations History of Present Illness: HPI Narrative: 56-year-old female who has a long history of COPD she is on 3 to 4 L of oxygen at baseline at home she states that over the last week she has been having an increasing cough and congestion. States she is also had some increasing wheezing. She has been doing her treatments but she states she started to have some back spasms along with chest pain she believes from her cough states she has been coughing quite hard and has these pains when she coughs. Denies any worsening proving factors. Associated symptoms: Reports chest pain; Deny abdominal pain, fever(s), nausea or vomiting Review of Systems Const: Denies: fever(s), chills, body aches or change in appetite Eyes: Denies: blurry vision or eye discomfort ENMT: Denies: throat pain or dental pain Card: Reports: chest pain Resp: Reports: dyspnea, non-productive cough and wheezing GI: Denies: abdominal pain, nausea, vomiting or diarrhea : Denies: dysuria Musc: Reports: back pain Skin/Breast: Denies: rash Neuro: Denies: headache(s) Psych: Denies: depression Lewis/Lymph: Denies: easy bruising All/Imm: Denies: urticaria PFSH ED PFSH: Medical History Anxiety Aortic regurgitation Bereavement counseling Eczema Essential (primary) hypertension Fibromyalgia GERD without esophagitis High risk medication use Hyperlipidemia Hypothyroidism Immunization counseling Inflammatory arthritis Ischemic stroke Psychiatric care Respiratory failure Seronegative rheumatoid arthritis Surgical History H/O breast biopsy H/O esophagogastroduodenoscopy (11/07/20) H/O thyroidectomy History of tonsillectomy Hx of cholecystectomy Status post colonoscopy (11/07/20) Family History Mother Rheumatoid arthritis Father Rheumatoid arthritis Leukemia Denies family history of Lupus Social History Smoking and tobacco status: current every day smoker cigarettes Packs smoked per day: 0.25 Years cigarettes smoked: 25 [ Other cigarette details: 2ppd x 25 years, currently trying to quit] Quit status (tobacco): not considering quitting Second hand smoke exposure: Yes Alcohol intake: never Marital status: Current occupational status: disabled History of recent travel: No Current gender identity: Female Physical Exam Const: COMMON NORMALS: patient oriented x3 and healthy appearing HENMT: COMMON NORMALS: normocephalic and atraumatic HEAD & SCALP: normocephalic and atraumatic Eye: COMMON NORMALS: Equal, round and reactive pupils present and EOMs intact bilaterally PUPIL: Yes Equal, round and reactive pupils present Neck/C-Spine: COMMON NORMALS: full ROM and supple Chest: COMMONS NORMALS: normal inspection of the chest and normal palpation of entire chest wall Resp: COMMON NORMALS: normal respiratory effort, No retractions and No use of accessory muscles AUSCULTATION: wheezes Cardio: COMMON NORMALS: regular rate, regular rhythm and No murmurs present (Cardio) RATE: regular rate RHYTHM: regular rhythm GI: COMMON NORMALS: Normal to inspection, nondistended, normoactive bowel sounds present, Soft to palpation, non-tender and no masses PALPATION: Yes Soft to palpation Extremity: COMMON NORMALS: normal to inspection and full ROM Neuro: COMMON NORMALS: patient oriented x3, moves all extremities and no focal motor deficits Psych: COMMON NORMALS: mental status grossly normal, Normal thought process present and cooperative THOUGHT PROCESS: Normal thought process present Skin: COMMON NORMALS: no rashes or lesions noted and no wounds GENERAL SKIN EXAM: no rashes or lesions noted Course Vital Signs: Vital signs: Vital Signs Temperature 97.6 F 03/12/22 19:03 Pulse Rate 79 03/12/22 20:09 Respiratory Rate 15 03/12/22 20:09 Blood Pressure 115/74 03/12/22 20:09 Pulse Oximetry 98 03/12/22 20:09 MDM - SOB/Dyspnea Medical Decision Making Patient presents here with likely COPD exacerbation she feels much improved here breathing treatment her blood work is normal x-ray is normal we will do a 5-day burst of steroids she is to follow-up with her PCP and return if worsening she understands agrees to plan. Lab Data : 03/12/22 19:00 03/12/22 19:00 Labs/Radiology: Radiology Impressions Chest X-Ray 03/12/22 19:01 IMPRESSION: No acute findings. Laboratory Results WBC 8.5 10^3/uL (4.0-10.0) 03/12/22 19:00 RBC 4.37 10^6/uL (4.1-5.3) 03/12/22 19:00 Hgb 13.2 g/dL (11.5-15.3) 03/12/22 19:00 Hct 42.2 % (37.0-47.0) 03/12/22 19:00 MCV 96.6 fl (81-99) 03/12/22 19:00 MCH 30.2 pg (28.0-34.0) 03/12/22 19: MCHC 31.3 g/dL (30.0-36.0) 03/12/22 19:00 RDW 14.1 % (12.1-15.1) 03/12/22 19:00 Plt Count 296 10^3/cmm (130-400) 03/12/22 19:00 MPV 9.8 fL (7.4-10.4) 03/12/22 19:00 Neut % (Auto) 76.7 % 03/12/22 19:00 Lymph % (Auto) 14.9 % 03/12/22 19:00 [place] % (Auto) 7.2 % 03/12/22 19:00 Eos % (Auto) 0.4 % 03/12/22 19:00 Baso % (Auto) 0.2 % 03/12/22 19:00 Neut # (Auto) 6.50 10^3/uL (1.8-7.7) 03/12/22 19:00 Lymph # (Auto) 1.3 10^3/uL (0.8-4.8) 03/12/22 19:00 [place] # (Auto) 0.6 10^3/uL (0.2-0.9) 03/12/22 19:00 Eos # (Auto) 0.0 10^3/uL (0.0-0.8) 03/12/22 19:00 Baso # (Auto) 0.0 10^3/uL (0.0-0.1) 03/12/22 19:00 Nucleated RBC % (auto) 0 % 03/12/22 19:00 Nucleated RBCs # 0.0 /100WBC 03/12/22 19:00 Specimen Type Arterial 03/12/22 19:05 Sample Site Radial, left 03/12/22 19:05 ABG pH 7.47 (7.35-7.45) H 03/12/22 19:05 ABG pCO2 49.2 mmHg (35-45) H 03/12/22 19:05 ABG pO2 69.6 mmHg (80.0-100.0) L 03/12/22 19:05 ABG HCO3 35.3 mmol/L (22-26) H 03/12/22 19:05 ABG Base Excess 10.0 mmol/L (-2.0-2.0) H 03/12/22 19:05 Rudy Test Pos 03/12/22 19:05 Hematocrit 41.1 % (37-47) 03/12/22 19:05 Hgb O2 Saturation 93.6 % (95-100) L 03/12/22 19:05 Carboxyhemoglobin 1.2 %THgb (0.4-20.1) 03/12/22 19:05 Methemoglobin 0.9 % (0.4-1.5) 03/12/22 19:05 Total Hemoglobin 13.4 g/dL (12-16) 03/12/22 19:05 O2 Delivery Device Nc 03/12/22 19:05 O2 Liters/Min 3.5 % 03/12/22 19:05 Email Deployment Specialist ID Delma 03/12/22 19:05 Sodium 140 mmol/L (136-145) 03/12/22 19:00 Potassium 4.8 mmol/L (3.5-5.1) 03/12/22 19:00 Chloride 95 mmol/L (98-107) L 03/12/22 19:00 Carbon Dioxide 35 mmol/L (22-29) H 03/12/22 19:00 Anion Gap 14.8 (5-19) 03/12/22 19:00 BUN 6 mg/dL (6-20) 03/12/22 19:00 Creatinine 0.7 mg/dL (0.5-0.9) 03/12/22 19:00 GFR Calculation 85.9 mL/min (90-130) L 03/12/22 19:00 Glucose 128 mg/dL (65-115) H 03/12/22 19:00 Calculated Osmolality 289 mOsm/kg (285-295) 03/12/22 19:00 Calcium 10.2 mg/dL (8.5-10.5) 03/12/22 19:00 Total Bilirubin 0.4 mg/dL (0.15-1.2) 03/12/22 19:00 AST 13 U/L (0-32) 03/12/22 19:00 ALT 15 U/L (0-33) 03/12/22 19:00 Alkaline Phosphatase 100 IU/L (35-105) 03/12/22 19:00 Troponin T Baseline 8 ng/L (0-10) 03/12/22 19:00 NT-Pro-B Natriuret Pep 108 pg/mL (0-125) 03/12/22 19:00 Total Protein 7.2 g/dL (6.6-8.7) 03/12/22 19:00 Albumin 4.5 g/dL (3.5-5.2) 03/12/22 19:00 Globulin 2.7 g/dL (1.3-4.6) 03/12/22 19:00 Lipase 18 U/L (13-60) 03/12/22 19:00 EKG Data EKG 1: I personally reviewed and interpreted this EKG as follows: EKG Interpretation Date: 03/12/22 EKG interpretation time: 19:07 Interpretation: nsr hr [address] or t wave abnormalities qrs 85 qtc 419 Discharge Plan Discharge Patient Disposition: Home Clinical Impression: Acute exacerbation of chronic obstructive airways disease Condition: Stable Prescriptions: New prednisone 50 mg tablet 50 mg PO DAILY Qty: 5 0RF No Action nitroglycerin 0.4 mg tablet, sublingual 0.4 mg sublingual Q5M PRN (Reason: chest pain) Qty: 30 6RF Rx Instructions: do not exceed 3 doses per episode pantoprazole 40 mg tablet,delayed release (DR/EC) 40 mg PO DAILY Qty: 30 4RF Rx Instructions: An Appt and labs will need to be done before any further refills. atorvastatin 40 mg tablet 40 mg PO DAILY Qty: 30 4RF Rx Instructions: AT 2000 carvedilol 25 mg tablet 25 mg PO BID Qty: 60 4RF Rx Instructions: AT 0800, 1999 prednisone 10 mg tablet 10 mg PO DAILY 0RF Hold Instructions: Resume on 01/26/22. resume after prednisone burst Trelegy Ellipta 100-62.5-25 mcg blister with device 1 inh INHALATION DAILY Qty: 28 3RF Rx Instructions: AT 0900 fluoxetine [Prozac] 20 mg capsule 20 mg PO BID 0RF albuterol sulfate 2.5 mg /3 mL (0.083 %) solution for nebulization 2.5 mg INHALATION Q4H PRN (Reason: shortness of breath or wheezing) Qty: 90 3RF (DME) Nebulizer machine See Rx Instructions .Route .MEDSUPPLY Qty: 1 0RF Rx Instructions: As directed levothyroxine 100 mcg tablet 100 mcg PO DAILY Qty: 90 0RF hydroxyzine HCl 25 mg tablet 25 mg PO QID PRN (Reason: anxiety) Qty: 120 1RF Rx Instructions: take also for itching furosemide [Lasix] 20 mg tablet 20 mg PO DAILY Qty: 30 1RF Rx Instructions: AT 0800 clonidine HCl 0.1 mg tablet 0.1 mg PO DAILY PRN (Reason: hypertensive emergency) Qty: 90 1RF Label Comments: Patient states she takes one tablet every morning, then sees how her blood pressure does throughout the day and takes the other two tablets as needed. verapamil 180 mg capsule,ext rel. pellets 24 hr 180 mg PO DAILY Qty: 90 1RF triamcinolone acetonide 0.1 % ointment See Rx Instructions .ROUTE .COMPLEX Qty: 30 3RF Dose Instruction: APPLY TO AFFECTED AREA TWO TIMES DAILY NEEDED Rx Instructions: APPLY TO AFFECTED AREA TWO TIMES DAILY NEEDED methotrexate sodium 2.5 mg tablet See Rx Instructions PO Q7D Qty: 30 3RF Rx Instructions: take 6 tabs once weekly on sundays potassium chloride 10 mEq tablet extended release 10 meq PO DAILY Qty: 90 2RF cholecalciferol (vitamin D3) 50 mcg (2,000 unit) tablet 2,000 unit PO DAILY Qty: 30 0RF Rx Instructions: AT 0800 folic acid 1 mg Tablet 1 mg PO DAILY 0RF clopidogrel 75 mg tablet 75 mg PO DAILY 0RF Xanax 0.25 mg tablet 0.25 mg PO DAILY PRN (Reason: Anxiety) 0RF Medrol (Addi) 4 mg tablets,dose pack See Rx Instructions .ROUTE .COMPLEX Qty: 21 0RF Rx Instructions: orally per package directions albuterol sulfate 90 mcg/actuation HFA aerosol inhaler 2 inh inhalation Q8H PRN (Reason: shortness of breath or wheezing) Qty: 8.5 3RF albuterol sulfate 1.25 mg/3 mL solution for nebulization 1.25 mg inhalation Q8H PRN (Reason: shortness of breath or wheezing) Qty: 75 1RF Discharge Orders: Discharge ED (Routine); Ordered 03/12/22 Ordered By: Ghazala Garrett Referrals: Afia Barrett NP [Primary Care Provider] - Discharge Diet: Advance as tolerated Discharge Activity: Resume usual activity Patient Instructions: COPD (Chronic Obstructive Pulmonary Disease) (ED) Coding Level of Care Code ED Visual Merchandising Associate for Dom Fwd Exam Comprehensive
[2022-03-12 19:16] LABS: ABG PCO2 49.2 mmHg (35-45); ABG PH Result 7.47 (7.35-7.45); Arterial Blood Gas Hematocrit 41.1 % (37-47); Blood Gas Allen Test Pos; Blood Gas LPM 3.5 %; Blood Gas Operator Identificat WALCI; Blood Gas Sample Site Radial, left; Blood Gas Sample Type Arterial; Carboxyhemoglobin 1.2 %THgb (0.4-20.1); HCO3 ABG 35.3 mmol/L (22-26); HGB O2 Sat 93.6 % (95-100); Methemoglobin 0.9 % (0.4-1.5); Oxygen Device NC; PO2 ABG 69.6 mmHg (80.0-100.0); Total Hemoglobin 13.4 g/dL (12-16)
[2022-03-12 19:34] LABS: Troponin(5th) Baseline 8 ng/L (0-10)
[2022-03-12 19:43] LABS: Alanine Aminotransferase 15 U/L (0-33); Albumin Level 4.5 g/dL (3.5-5.2); Alkaline Phosphatase 100 IU/L (35-105); Anion Gap 14.8 (5-19); Aspartate Amino Transferase 13 U/L (0-32); Blood Urea Nitrogen 6 mg/dL (6-20); Calcium 10.2 mg/dL (8.5-10.5); Carbon Dioxide 35 mmol/L (22-29); Chloride 95 mmol/L (98-107); Globulin 2.7 g/dL (1.3-4.6); Glomerular Filtration Rate 85.9 mL/min (90-130); Glucose 128 mg/dL (65-115); Lipase 18 U/L (13-60); NT Pro B Type Natriuretic Pept 108 pg/mL (0-125); Osmolality Calculated 289 mOsm/kg (285-295); Potassium 4.8 mmol/L (3.5-5.1); Sodium 140 mmol/L (136-145); Total Bilirubin 0.4 mg/dL (0.15-1.2); Total Protein 7.2 g/dL (6.6-8.7)
[2022-03-12 20:09] VITALS: BP 115/74; PULSE 79; RESP 15; O2SAT 98
[2022-03-12] MEDS: FUROsemide 10 mg/mL SDV 4mL 40 MG IVP (20:15)
[2022-03-12 20:41] VITALS: BP 149/78; PULSE 76; RESP 19; O2SAT 97
== END 2022-03-12 20:46 | disposition home or self-care (01) ==
PROVIDERS: Emergency Provider Emergency Medicine; PCP Nurse Practitioner Family
DX: J44.1 Chronic obstructive pulmonary disease with (acute) exacerbation (principal); F17.210 Nicotine dependence, cigarettes, uncomplicated; I10 Essential (primary) hypertension
CPT/HCPCS: 36600; 71045; 80053; 82805; 83690; 83880; 84484; 85025; 93005; 96374; 96375; 99285; J1940; J2270; J2405

== ENCOUNTER → 2022-04-03 14:22 | Outpatient (BNVA) | payer MEDICAID, SELFPAY | PROVIDERS: PCP Nurse Practitioner Family; Visit Provider Internal Medicine Rheumatology | DX: M19.90 Unspecified osteoarthritis, unspecified site (principal); M06.00 Rheumatoid arthritis without rheumatoid factor, unspecified site; Z71.89 Other specified counseling; Z79.899 Other long term (current) drug therapy; L53.9 Erythematous condition, unspecified; I51.7 Cardiomegaly; Z86.718 Personal history of other venous thrombosis and embolism | CPT/HCPCS: 99214 ==

== ENCOUNTER → 2022-05-06 15:00 | Outpatient (BNVA) | payer MEDICARE, MEDICAID, SELFPAY | PROVIDERS: PCP Nurse Practitioner Family; Visit Provider Internal Medicine Pulmonary Disease | DX: R06.00 Dyspnea, unspecified (principal); J44.9 Chronic obstructive pulmonary disease, unspecified; M06.00 Rheumatoid arthritis without rheumatoid factor, unspecified site; I25.10 Atherosclerotic heart disease of native coronary artery without angina pectoris; R93.89 Abnormal findings on diagnostic imaging of other specified body structures; F41.9 Anxiety disorder, unspecified; Z86.16 Personal history of COVID-19; Z99.81 Dependence on supplemental oxygen | CPT/HCPCS: 99214 ==

== ENCOUNTER 2022-05-07 12:43 | Outpatient (CLI) | payer MEDICARE, MEDICAID, SELFPAY ==
--- NOTE | 2022-05-07 12:53 | XR_ITS ---
WS: [id number] Exam: XR chest 2V* [id number] Date/Time of Exam: 05/07/2022 12:53 PM Reason For Exam: Facial swelling-rule out lung mass causing SVC syndrome Comparison 03/12/2022. The lungs are clear and fully expanded. Heart size is top limits normal for technique. The mediastina l silhouette is unremarkable. No pleural effusions. Regional bony elements are intact. XR/XR chest 2V* [id number] IMPRESSION: 1. No acute cardiopulmonary finding.
== END 2022-05-07 12:44 | disposition home or self-care (01) ==
LOC: RAD 12:46
PROVIDERS: PCP Nurse Practitioner Family; Visit Provider Internal Medicine Pulmonary Disease
DX: R22.0 Localized swelling, mass and lump, head (principal)
CPT/HCPCS: 71046

== ENCOUNTER 2022-06-26 06:00 | Outpatient (RCR) | payer MEDICARE, MEDICAID, SELFPAY | END 2022-07-08 23:59 | disposition home or self-care (01) | LOC: TPT 06:00 | PROVIDERS: PCP Nurse Practitioner Family; Visit Provider Internal Medicine Pulmonary Disease | DX: R53.81 Other malaise (principal); U09.9 Post COVID-19 condition, unspecified | CPT/HCPCS: 97110; 97163 ==

== ENCOUNTER 2022-08-20 13:30 | Outpatient (CLI) | payer MEDICARE, MEDICAID, SELFPAY ==
--- NOTE | 2022-08-20 | CT_ITS ---
WS: [id number] CT CHEST WITHOUT INTRAVENOUS CONTRAST HISTORY: 6 month f/u lung nodule TECHNIQUE: Contiguous 5 mm axial imaging performed on the thorax. Coronal and sagittal reformats are submitted. All CT scans at [facility] use at least one of these dose optimization techniques: automated exposure control; mA and/or kV adjustment per patient size (includes targeted exams where dose is matched to clinical indication); or iterative reconstruction. CONTRAST: None DLP: 717.03 mGy.cm COMPARISON: 09/02/2020 and 01/01/2022 Lungs and central airway: Moderate chronic emphysematous changes. Previously described 5 mm nodule LE FT lower lobe subpleural is reidentified. Noncalcified nodule is best seen on the sagittal reformats with no increase in size. Subsegmental areas of atelectasis or scar or scar in the LEFT upper and LEFT lower lobes. Pleura: Normal. No pleural effusion. Heart and pericardium: Mild cardiomegaly. Very mild pericardial thickening is unchanged. Mediastinum and manuela: No mediastinum or hilar adenopathy. Vessels: Mild atherosclerosis and ectasia thoracic aorta. Pulmonary artery size is equal to the aorta . Chest wall and lower neck: No soft tissue masses. Upper abdomen: Supraumbilical ventral wall hernia containing fat only. Prior cholecystectomy. Stable RIGHT hepatic cyst 15 mm. No adrenal mass. 16 mm low-attenuation nodule LEFT kidney is unchanged. Osseous structures: New T6 and T7 compression fractures, approximately 20%. CT/CT chest con [id number] IMPRESSION: 1. No change in the 5 mm subpleural LEFT lower lobe pulmonary nodule since 12/08. Additional [address] follow-up recommended to demon strate long-term stability. 2. Chronic emphysema. 3. New since 01/01/2022 compression fractures at T6 and T7.
== END 2022-08-20 13:31 | disposition home or self-care (01) ==
LOC: RAD 13:33
PROVIDERS: PCP Nurse Practitioner Family; Visit Provider Internal Medicine Pulmonary Disease
DX: R91.8 Other nonspecific abnormal finding of lung field (principal); J43.9 Emphysema, unspecified; M48.54XA Collapsed vertebra, not elsewhere classified, thoracic region, initial encounter for fracture
CPT/HCPCS: 71250

== ENCOUNTER 2022-08-20 13:30 | Outpatient (CLI) | payer MEDICARE, MEDICAID, SELFPAY ==
--- NOTE | 2022-08-20 15:20 | MM_ITS ---
WS: [id number] BILATERAL 3D TOMOSYNTHESIS DIGITAL SCREENING MAMMOGRAM WITH CAD CLINICAL INFORMATION: SCREENING HISTORY: Screening mammogram. Lumpy breasts. Bilateral breast soreness. COMPARISON: None. TECHNIQUE: Bilateral CC and MLO views. FINDINGS: Fatty-replaced breasts bilaterally. No suspicious focal mass, asymmetry, calcifications, or sap bi architect ural distortion. No evidence of malignancy. Incidental benign and lucent centered calcifications. MM/[place] [id number] IMPRESSION: BI-RADS: 2-Benign FOLLOW UP: 1 Year Follow-up Recommend return to annual screening mammography.
== END 2022-08-20 13:31 | disposition home or self-care (01) ==
PROVIDERS: PCP Nurse Practitioner Family; Visit Provider Nurse Practitioner Family
DX: Z12.31 Encounter for screening mammogram for malignant neoplasm of breast (principal)
CPT/HCPCS: 77063; 77067

== ENCOUNTER 2022-08-22 21:58 | Inpatient (IN) | payer MEDICARE, MEDICAID, SELFPAY ==
[2022-08-22 21:59] VITALS: BP 172/91; PULSE 122; RESP 20; TEMP 39.4; O2SAT 90; BMI 36.1
--- NOTE | 2022-08-22 22:02 | ECG_ITS ---
[facility] Test Date: 2022-08-22 Pat Name: Angie Naranjo Department: Room: 271 Gender: Female Crm Marketing Specialist: : [id number] Requested By: Ghazala Garrett Order Number: [id number] Asa MD: Gui Conway M.D. Measurements Intervals Eva Rate: 118 P: 70 MT: 164 QRS: 9 QRSD: 89 T: 69 QT: 436 QTc: 612 Interpretive Statements SINUS TACHYCARDIA RIGHT ATRIAL ENLARGEMENT [0.3mV P-WAVE] LEFT ATRIAL ENLARGEMENT [-0.15mV P-WAVE IN V1/V2] SEPTAL MYOCARDIAL INFARCTION , OF INDETERMINATE AGE [40+ ms Q WAVE IN V1/V2] Compared to ECG 03/12/2022 19:07:10 Myocardial infarct finding now present Sinus rhythm no longer present Electronically Signed On 08-23-2022 13:47:10 INCIDENT COMMANDER by Gui Conway M.D. [email or web address]
--- NOTE | 2022-08-22 22:03 | XRR_ITS ---
PROCEDURE INFORMATION: Exam: XR Chest Exam date and time: 08/22/2022 10:16 PM Age: 56 years old Clinical indication: Shortness of breath; Additional info: Fever TECHNIQUE: Imaging protocol: Radiologic exam of the chest. Views: 1 view. COMPARISON: CT chest con [id number] 08/20/2022 1:49 PM FINDINGS: Lungs: Dense airspace opacities have developed in the superior right upper lobe and peripheral right lung base. The left lung is clear. Mild right peribronchial cuffing, likely bronchitis. Pleural spaces: Unremarkable. No pleural effusion. No pneumothorax. Heart/Mediastinum: Unremarkable. No cardiomegaly. Bones/joints: Unremarkable. XR/XR chest 1V portable [id number] IMPRESSION: 1. New consolidations in the right upper lobe and peripheral right lung base could represent pneumonia or aspiration.
--- NOTE | 2022-08-22 22:04 | ED_ITS ---
HPI - SOB/Dyspnea General: Chief Complaint: Shortness of Breath/Dyspnea Stated Complaint: SOB Time Seen by Provider: 08/22/22 21:59 Source: patient and EMS Mode of arrival: EMS Limitations: no limitations History of Present Illness: HPI Narrative: 56-year-old female has a history of COPD is a smoker 7 3 there is washing baseline states over last 3 days she has had cough fever and body aches and increasing shortness of breath she does have a temperature here of 103 patient getting breathing treatment and steroid in route she states she has pain all over her body aches denies any chest pain denies any worsening improving factors. Associated symptoms: Reports fever(s); Deny abdominal pain, chest pain, nausea or vomiting Review of Systems Const: Reports: fever(s), chills and body aches Eyes: Denies: blurry vision or eye discomfort ENMT: Denies: throat pain or dental pain Card: Denies: chest pain Resp: Reports: dyspnea and non-productive cough GI: Denies: abdominal pain, nausea, vomiting or diarrhea : Denies: dysuria Musc: Denies: neck pain or back pain Skin/Breast: Denies: rash Neuro: Denies: headache(s) Psych: Denies: depression Lewis/Lymph: Denies: easy bruising All/Imm: Denies: urticaria PFSH ED PFSH: Medical History Anxiety Aortic regurgitation Bereavement counseling Eczema Essential (primary) hypertension Fibromyalgia GERD without esophagitis High risk medication use Hyperlipidemia Hypothyroidism Immunization counseling Inflammatory arthritis Ischemic stroke Psychiatric care Respiratory failure Seronegative rheumatoid arthritis Surgical History H/O breast biopsy H/O esophagogastroduodenoscopy (11/07/20) H/O thyroidectomy History of tonsillectomy Hx of cholecystectomy Status post colonoscopy (11/07/20) Family History Mother Rheumatoid arthritis Father Rheumatoid arthritis Leukemia Denies family history of Lupus Social History Smoking and tobacco status: current every day smoker cigarettes Packs smoked per day: 0.25 Years cigarettes smoked: 25 [ Other cigarette details: 2ppd x 25 years, currently trying to quit] Second hand smoke exposure: Yes Alcohol intake: never Marital status: Current occupational status: disabled History of recent travel: No Current gender identity: Female Physical Exam Const: COMMON NORMALS: patient oriented x3 GENERAL APPEARANCE: ill appearing HENMT: COMMON NORMALS: normocephalic and atraumatic HEAD & SCALP: normocephalic and atraumatic Eye: COMMON NORMALS: Equal, round and reactive pupils present and EOMs intact bilaterally PUPIL: Yes Equal, round and reactive pupils present Neck/C-Spine: COMMON NORMALS: full ROM and supple Chest: COMMONS NORMALS: normal inspection of the chest and normal palpation of entire chest wall Resp: COMMON NORMALS: No retractions EFFORT & INSPECTION: Yes labored AUSCULTATION: wheezes Cardio: COMMON NORMALS: regular rate, regular rhythm and No murmurs present (Cardio) RATE: regular rate RHYTHM: regular rhythm GI: COMMON NORMALS: Normal to inspection, nondistended, normoactive bowel sounds present, Soft to palpation, non-tender and no masses PALPATION: Yes Soft to palpation Extremity: COMMON NORMALS: normal to inspection and full ROM Neuro: COMMON NORMALS: patient oriented x3, moves all extremities and no focal motor deficits Psych: COMMON NORMALS: mental status grossly normal, Normal thought process present and cooperative THOUGHT PROCESS: Normal thought process present Skin: COMMON NORMALS: no rashes or lesions noted and no wounds GENERAL SKIN EXAM: no rashes or lesions noted Course Vital Signs: Vital signs: Vital Signs Temperature 103.0 F H 08/22/22 21:59 Pulse Rate 122 H 08/22/22 21:59 Respiratory Rate 20 H 08/22/22 21:59 Blood Pressure 172/91 08/22/22 21:59 Pulse Oximetry 90 08/22/22 21:59 Oxygen Delivery Me thod 08/22/22 21:59 Oxygen Flow Rate 4 08/22/22 21:59 MDM - SOB/Dyspnea Medical Decision Making Patient presents here with cough fever he does have an elevated white count x- ray shows right upper lobe pneumonia spoke to hospitalist will admit at this time. Lab Data 08/22/22 22:16 08/22/22 22:18 Labs/Radiology: Radiology Impressions Chest X-Ray 08/22/22 22:03 IMPRESSION: 1. New consolidations in the right upper lobe and peripheral right lung base could represent pneumonia or aspiration. Laboratory Results WBC 19.2 10^3/uL (4.0-10.0) H 08/22/22 22:16 RBC 4.49 10^6/uL (4.1-5.3) 08/22/22 22:16 Hgb 14.0 g/dL (11.5-15.3) 08/22/22 22:16 Hct 45.2 % (37.0-47.0) 08/22/22 22:16 MCV 100.7 fl (81-99) H 08/22/22 22:16 MCH 31.2 pg (28.0-34.0) 08/22/22 22:16 MCHC 31.0 g/dL (30.0-36.0) 08/22/22 22:16 RDW 14.9 % (12.1-15.1) 08/22/22 22:16 Plt Count 164 10^3/cmm (130-400) 08/22/22 22:16 MPV 11.0 fL (7.4-10.4) H 08/22/22 22:16 Neut % (Auto) 82.7 % 08/22/22 22:16 Lymph % (Auto) 7.4 % 08/22/22 22:16 [place] % (Auto) 7.9 % 08/22/22 22:16 Eos % (Auto) 0.3 % 08/22/22 22:16 Baso % (Auto) 0.2 % 08/22/22 22:16 Neut # (Auto) 15.87 10^3/uL (1.8-7.7) H 08/22/22 22:16 Lymph # (Auto) 1.4 10^3/uL (0.8-4.8) 08/22/22 22:16 [place] # (Auto) 1.5 10^3/uL (0.2-0.9) H 08/22/22 22:16 Eos # (Auto) 0.1 10^3/uL (0.0-0.8) 08/22/22 22:16 Baso # (Auto) 0.0 10^3/uL (0.0-0.1) 08/22/22 22:16 Nucleated RBC % (auto) 0 % 12/15/22 22:16 Nucleated RBCs # 0.0 /100WBC 08/22/22 22:16 Lactic Acid 1.6 mmol/L (0.5-2.2) 08/22/22 22:18 Critical Care Time Critical Care Time: Critical Care Time: Yes Total Critical Care Time: 40 Attestation: The high probability of a clinically significant, sudden or life threatening deterioration of the patient's resp system(s) required my full and direct attention, intervention and personal management. The critical care time is as shown. This time is in addition to time spent performing any reported procedures but includes the following: [x] Data and vital sign review and interpretation [x] Patient assessment, examination and intervention [x] Documentation [x] Medication orders and management Discharge Plan Discharge Patient Disposition: Admitted As Inpatient Admit Provider: Jennifer Bailey Clinical Impression: Community acquired pneumonia, Acute respiratory failure with hypoxia Condition: Stable Coding Level of Care Code ED Environmental Educator for Chg Fwd Exam Comprehensive
[2022-08-22 22:28] LABS: Basophils % 0.2 %; Eosinophils # 0.1 10^3/uL (0.0-0.8); Eosinophils % 0.3 %; Hematocrit 45.2 % (37.0-47.0); Lymphocytes # 1.4 10^3/uL (0.8-4.8); Lymphocytes % 7.4 %; Mean Corpuscular Hemoglobin 31.2 pg (28.0-34.0); Mean Corpuscular Volume 100.7 fl (81-99); Monocytes # 1.5 10^3/uL (0.2-0.9); Monocytes % 7.9 %; Neutrophils # 15.87 10^3/uL (1.8-7.7); Neutrophils % 82.7 %; Nucleated Red Blood Cells % 0 %; Platelet Count 164 10^3/cmm (130-400); Red Blood Count 4.49 10^6/uL (4.1-5.3); Red Cell Distribution Width 14.9 % (12.1-15.1); White Blood Count 19.2 10^3/uL (4.0-10.0)
[2022-08-22] MEDS: acetaminophen 500 mg Tablet 1000 MG PO (22:29)
[2022-08-22] MEDS: ondansetron 2 mg/ML SDV 2 mL 4 MG IVP (22:30)
[2022-08-22] MEDS: morphine 4 mg/mL SDV 1 mL IVP (22:30)
--- NOTE | 2022-08-22 22:43 | P.HP_ITS ---
Providers/Chief Complaint Primary Care Provider: Afia Barrett NP Chief Complaint: SOB History of Present Illness Angie Naranjo is a 56 year old female who history of oxygen dependent COPD,, previous history of COVID-19 intubated for a month required tracheostomy then was discharged on 3 L of oxygen, follows up with Dr. Garcia, active smoker, recently CT scan was done on 08/20 which showed new compression fracture T6-T7 and left lower lobe pulmonary nodule without any change from 5 mm presented with worsening of shortness of breath. Patient is stating that she suffered a viral infection around [facility], she recovered from it and about 2 weeks ago she was exposed to a person at a birthday libertarian who had strep throat, but she never experienced any sore throat or fever, recently she started Percocet for her back pain, she started having recurrent emesis because of it, she started feeling bad afterwards and last 2 to 3 days she has been experiencing hot flashes, chills, fever with nausea. She has not noticed any chest pain at baseline she uses 2 L of oxygen. She uses 20 mg of prednisone on daily basis. Patient still smokes 3 to 4 cigarettes a day In the ER she has been diagnosed with sepsis related to community-acquired pneumonia she is immunocompromised she has received cephalexin azithromycin in the ER I will start her on vancomycin and cefepime requested LDH, PCP panel and galactomannan assay Currently she is on [address] scan was done on 08/20 which did not show any signs of dense consolidation I will give her another liter bolus she had received 1 L so far, blood cultures taken, Review of Systems Const: Reports: fever(s), chills, body aches and fatigue Eyes: Denies: change in vision ENMT: Denies: throat pain Card: Reports: dyspnea on exertion and orthopnea; Denies: chest pain Resp: Reports: dyspnea GI: Reports: nausea : Denies: flank pain Musc: Denies: neck pain Skin/Breast: Denies: rash Neuro: Reports: headache(s) Psych: Reports: anxiety Endo: Denies: polyuria Lewis/Lymph: Denies: easy bruising All/Imm: Denies: urticaria Medications/Allergies Home Medications Medication Instructions Recorded Confirmed Last Taken Type albuterol sulfate 2.5 mg/3 mL 2.5 mg (3 mL) inhalation Q4H PRN 10/09/20 05/06/22 02/03/22 Rx (0.083 %) solution for nebulization shortness of breath or wheezing #90 mL atorvastatin 40 mg tablet 40 mg PO DAILY #30 tabs 12/05/20 05/06/22 02/02/22 Rx carvedilol 25 mg tablet 25 mg PO BID #60 tabs 12/05/20 05/06/22 02/03/22 Rx pantoprazole 40 mg tablet,delayed 40 mg PO DAILY #30 tabs 12/05/20 05/06/22 02/03/22 Rx release Nebulizer machine #1 ea 12/06/20 05/06/22 Unknown Rx levothyroxine 100 mcg tablet 100 mcg PO DAILY #90 tabs 12/15/20 05/06/22 02/03/22 Rx hydroxyzine HCl 25 mg tablet 25 mg PO QID PRN anxiety #120 tabs 01/17/21 05/06/22 01/19/22 18:00 Rx furosemide 20 mg tablet (Lasix) 20 mg PO DAILY #30 tabs 01/29/21 05/06/22 02/03/22 Rx nitroglycerin 0.4 mg sublingual 0.4 mg sublingual Q5M PRN chest 01/31/21 05/06/22 01/20/22 02:00 Rx tablet pain #30 tabs clonidine HCl 0.1 mg tablet 0.1 mg PO DAILY PRN hypertensive 03/06/21 05/06/22 02/03/22 Rx emergency #90 tabs 0.2 MG TODAY triamcinolone acetonide 0.1 % See Rx Instructions .Route 12/26/21 05/06/22 01/09/22 10:00 Rx topical ointment .COMPLEX #30 grams fluoxetine 20 mg capsule (Prozac) 20 mg PO BID 01/04/22 05/06/22 02/03/22 History folic acid 1 mg tablet 1 mg PO DAILY 01/20/22 05/06/22 02/03/22 History potassium chloride 10 mEq 10 meq PO DAILY #90 tabs 01/28/22 05/06/22 02/03/22 Rx tablet,extended release cholecalciferol (vitamin D3) 50 2,000 unit PO DAILY #30 tabs 01/29/22 05/06/22 02/03/22 Rx mcg (2,000 unit) tablet alprazolam 0.25 mg tablet (Xanax) 0.25 mg PO DAILY PRN Anxiety 02/03/22 05/06/22 Unknown History clopidogrel 75 mg tablet 75 mg PO DAILY 02/03/22 05/06/22 02/03/22 History albuterol sulfate 1.25 mg/3 mL 1.25 mg (3 mL) inhalation Q8H PRN 02/06/22 05/06/22 Unknown Rx solution for nebulization shortness of breath or wheezing #75 mL albuterol sulfate 90 mcg/actuation 2 inh inhalation Q8H PRN shortness 02/06/22 05/06/22 Unknown Rx aerosol inhaler of breath or wheezing #8.5 grams methylprednisolone 4 mg tablets in See Rx Instructions PO .COMPLEX 02/06/22 05/06/22 Unknown Rx a dose pack (Medrol (Addi)) #21 ea hydroxychloroquine 200 mg tablet 200 mg PO BID #60 tabs 04/03/22 05/06/22 Unknown Rx methotrexate sodium 2.5 mg tablet 20 mg PO .Q7days #40 tabs 04/03/22 05/06/22 Unknown Rx prednisone 10 mg tablet 10 mg PO DAILY #90 tabs 04/03/22 05/06/22 Unknown Rx prednisone 2.5 mg tablet 2.5 mg PO DAILY #90 tabs 04/03/22 05/06/22 Unknown Rx verapamil 180 mg 24 hr 180 mg PO DAILY #90 caps 04/15/22 05/06/22 Unknown Rx capsule,extended release fluticasone fur. 100 mcg-umeclid 1 inh inhalation DAILY #28 ea 05/15/22 Unknown Rx 62.5 mcg-vilant 25 mcg inhalat.powder (Trelegy Ellipta) Allergies Allergy/AdvReac Type Severity Reaction Status Date / Time sertraline [From Zoloft] Allergy Unknown Unknown Verified 05/06/22 15:09 aspirin Allergy Unknown Verified 05/06/22 15:09 buspirone [From BuSpar] Allergy Unknown Verified 05/06/22 15:09 codeine Allergy Unknown Verified 05/06/22 15:09 duloxetine Allergy Unknown Verified 05/06/22 15:09 gabapentin [From Neurontin] Allergy Unknown Verified 05/06/22 15:09 ibuprofen Allergy UNKNOWN Verified 05/06/22 15:09 iodine Allergy Unknown Verified 05/06/22 15:09 ketorolac [From Toradol] Allergy UNKNOWN Verified 05/06/22 15:09 lisinopril Allergy Unknown Verified 05/06/22 15:09 Penicillins Allergy Unknown Verified 05/06/22 15:09 pregabalin [Lyrica] Allergy Unknown Verified 05/06/22 15:09 Sulfa (Sulfonamide Allergy Unknown Verified 05/06/22 15:09 Antibiotics) tizanidine Allergy Unknown Verified 05/06/22 15:09 tramadol Allergy Unknown Verified 05/06/22 15:09 varenicline [From Chantix] Allergy UNKNOWN Verified 05/06/22 15:09 venlafaxine Allergy Unknown Verified 05/06/22 15:09 PFSH Acute PFSH: Medical History Anxiety Aortic regurgitation Bereavement counseling Eczema Essential (primary) hypertension Fibromyalgia GERD without esophagitis High risk medication use Hyperlipidemia Hypothyroidism Immunization counseling Inflammatory arthritis Ischemic stroke Psychiatric care Respiratory failure Seronegative rheumatoid arthritis Surgical History H/O breast biopsy H/O esophagogastroduodenoscopy (11/07/20) H/O thyroidectomy History of tonsillectomy Hx of cholecystectomy Status post colonoscopy (11/07/20) Family History Mother Rheumatoid arthritis Father Rheumatoid arthritis Leukemia Denies family history of Lupus Social History Smoking and tobacco status: current every day smoker cigarettes Packs smoked per day: 0.25 Years cigarettes smoked: 25 [ Other cigarette details: 2ppd x 25 years, currently trying to quit] Second hand smoke exposure: Yes Alcohol intake: never Marital status: Current occupational status: disabled History of recent travel: No Current gender identity: Female Vitals/I&O/Wt Last Vital Signs Temp 103.0 F H 08/22/22 21:59 Pulse 122 H 08/22/22 21:59 Resp 20 H 08/22/22 21:59 BP 172/91 08/22/22 21:59 Pulse Ox 90 08/22/22 21:59 O2 Del Method 08/22/22 21:59 O2 Flow Rate 4 08/22/22 21:59 Weight last 48 hrs Weight 86.636 kg Physical Exam Narrative: Patient is laying supine Currently on 5 L Bronchial breath sounds noted on right lung auscultation Cushingoid appearance Abdomen soft No signs of edema Currently saturating 91% on 5 L Tachycardia with irregular heart rhythm Nonfocal neuro exam Awake and alert Patient's skin is wet due to sweating Sepsis related exam Patient is awake and alert No acute respiratory distress Good capillary refill No mottling No signs of cellulitis No encephalopathy Data 08/22/22 22:16 08/22/22 22:18 Micro: Microbiology 08/22/22 22:18 Blood Culture - Preliminary Blood SPECIMEN COLLECTED 08/22/22 22:16 Blood Culture - Preliminary Blood SPECIMEN COLLECTED A&P Assessment and plan (1) Community acquired pneumonia: (2) Acute respiratory failure with hypoxia: (3) Facial swelling: (4) Compression fracture: (5) High risk medication use: (6) Depression with anxiety: (7) Intermittent palpitations: (8) Seronegative rheumatoid arthritis: (9) Polyarticular psoriatic arthritis: Plan Sepsis related to pneumonia Acute COPD exacerbation with acute on chronic hypoxic Patient is immunocompromised She takes methotrexate, hydroxychloroquine and prednisone 20 mg daily Check PCP antigen from sputum Check sputum culture, bacterial antigen, MRSA PCR We will start her on vancomycin, cefepime, check LDH Currently she is requiring 5 L of oxygen at home uses 3 L which would define acute on chronic hypoxia due to underlying pneumonia I would not repeat CT scan however 08/20 CT scan of chest did not show pneumonia Patient is stating that from penicillin she gets anaphylactic reaction last dose was given when she was a child Septic bolus given Sepsis criteria met with fever tachypnea tachycardia and leukocytosis Blood cultures taken I would not give her ceftriaxone and azithromycin anymore Active smoker Full code Cardiac diet Compression fracture T6-T7 is new I would continue her oxycodone she gets nausea with Percocet Attestations Medical Necessity Statement*: Anticipating more than 2 midnights for management of sepsis Time Spent in Patient Care: 40 Coding Level of Care Code Acute Director Of Sales 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
[2022-08-22 22:45] LABS: Lactic Sepsis W/Reflex 1.6 mmol/L (0.5-2.2)
[2022-08-22 22:56] LABS: Alanine Aminotransferase 13 U/L (0-33); Albumin Level 3.9 g/dL (3.5-5.2); Alkaline Phosphatase 67 U/L (35-105); Anion Gap 9.6 (5-19); Aspartate Amino Transferase 11 U/L (0-32); Blood Urea Nitrogen 5 mg/dL (6-20); Calcium 8.7 mg/dL (8.5-10.5); Carbon Dioxide 37 mmol/L (22-29); Chloride 94 mmol/L (98-107); Creatinine Clr Calc Pharmacy 87.5875; Globulin 2.5 g/dL (1.3-4.6); Glomerular Filtration Rate 85.9 mL/min (90-130); Glucose 94 mg/dL (65-115); NT Pro B Type Natriuretic Pept 327 pg/mL (0-125); Osmolality Calculated 283 mOsm/kg (285-295); Sodium 138 mmol/L (136-145); Total Bilirubin 0.5 mg/dL (0.15-1.2); Total Protein 6.4 g/dL (6.6-8.7)
[2022-08-22 23:03] LABS: Potassium 2.6 mmol/L (3.5-5.1)
[2022-08-22 23:06] VITALS: BP 144/79; PULSE 113; RESP 18; O2SAT 95
[2022-08-22] MEDS: cefTRIAXone 1,000 MG in sodium chloride 0.9% (plus) 50 ML 100 MG IV (23:10)
[2022-08-22 23:22] LABS: Lactate Dehydrogenase 286 U/L (135-214)
--- NOTE | 2022-08-22 23:26 | PC.NURSE ---
Priscila Brar updated on patients status. Pt allowed information given. Priscila's number is [phone]
[2022-08-22 23:30] VITALS: BP 143/74; PULSE 102; RESP 25; TEMP 38.4; O2SAT 91
[2022-08-22 23:31] LABS: D Dimer 0.49 ug/mIFEU (0-0.59)
[2022-08-23] VITALS (16 sets, daily range): BP systolic 100–130; BP diastolic 64–70; PULSE 72–102; RESP 14–18; TEMP 36.4–37.8; O2SAT 93–98
[2022-08-23] MEDS: azithromycin 500 MG in sodium chloride 0.9% 250 ML 250 MG IV (00:09)
--- NOTE | 2022-08-23 00:11 | PC.NURSE ---
Lactated Ringer's infusing via gravity by ambulance. Fluids continued on arrival
[2022-08-23 00:17] LABS: Influenza A by IFA negative (Negative); Influenza B by IFA negative (Negative)
[2022-08-23] MEDS: morphine 4 mg/mL SDV 1 mL IVP (00:18)
[2022-08-23 00:44] LABS: SARS Covid-2 Antigen Negative (Negative)
[2022-08-23] MEDS: sodium chloride 0.9% 1,000 ML 75 ML IV (00:59)
[2022-08-23] MEDS: potassium chloride ER 20 mEq Tablet 60 MEQ PO (00:59)
[2022-08-23] MEDS: vancomycin 1,250 MG/250 ML PIGGYBACK 250 MG IV ×2 (03:51→14:29)
[2022-08-23] MEDS: potassium chloride ER 20 mEq Tablet PO ×2 (04:25→11:10)
[2022-08-23 05:36] LABS: Basophils % 0.2 %; Eosinophils # 0.2 10^3/uL (0.0-0.8); Eosinophils % 0.9 %; Hematocrit 44.3 % (37.0-47.0); Hemoglobin 13.5 g/dL (11.5-15.3); Lymphocytes # 0.7 10^3/uL (0.8-4.8); Lymphocytes % 3.4 %; Mean Corpuscular HGB Conc 30.5 g/dL (30.0-36.0); Mean Corpuscular Hemoglobin 31.3 pg (28.0-34.0); Mean Corpuscular Volume 102.5 fl (81-99); Mean Platelet Volume 10.3 fL (7.4-10.4); Monocytes # 0.7 10^3/uL (0.2-0.9); Monocytes % 3.4 %; Neutrophils # 17.51 10^3/uL (1.8-7.7); Neutrophils % 89.3 %; Nucleated Red Blood Cells % 0 %; Platelet Count 184 10^3/cmm (130-400); Red Blood Count 4.32 10^6/uL (4.1-5.3); Red Cell Distribution Width 14.7 % (12.1-15.1); White Blood Count 19.6 10^3/uL (4.0-10.0)
[2022-08-23 05:55] LABS: Anion Gap 8.5 (5-19); Blood Urea Nitrogen 6 mg/dL (6-20); C Reactive Protein 231.8 mg/L (0.0-4.9); Calcium 9.2 mg/dL (8.5-10.5); Carbon Dioxide 40 mmol/L (22-29); Chloride 95 mmol/L (98-107); Creatinine Clr Calc Pharmacy 68.1236; Glomerular Filtration Rate 64.3 mL/min (90-130); Glucose 133 mg/dL (65-115); Magnesium 1.8 mg/dL (1.7-2.3); Osmolality Calculated 290 mOsm/kg (285-295); Potassium 3.5 mmol/L (3.5-5.1); Sodium 140 mmol/L (136-145)
[2022-08-23] MEDS: heparin 5,000 unit/mL INJ 1 mL 5000 UNIT SUBCUT ×2 (06:15→18:26)
[2022-08-23] MEDS: cefepime 1,000 MG in sodium chloride 0.9% (plus) 50 ML 100 MG IV ×2 (06:15→18:26)
[2022-08-23] MEDS: oxyCODONE 5 mg IR Tab/Cap PO ×3 (06:20→21:27)
[2022-08-23] MEDS: ipratropium-albuterol 3 mL Neb INHALATION ×2 (07:55→19:57)
[2022-08-23] MEDS: budesonide 0.5 mg/2 mL Neb INHALATION ×2 (07:55→19:57)
[2022-08-23 08:42] LABS: Troponin(5th) Baseline 7 ng/L (0-10)
[2022-08-23 08:57] LABS: NT Pro B Type Natriuretic Pept 1042 pg/mL (0-125)
--- NOTE | 2022-08-23 09:40 | ECG_ITS ---
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 Measurements Intervals [place] Rate: 78 P: 59 ME: 173 QRS: 9 QRSD: 104 T: 39 QT: 404 QTc: 461 Interpretive Statements SINUS RHYTHM LOW QRS VOLTAGE IN PRECORDIAL LEADS [QRS DEFLECTION < 1.0 mV IN CHEST LEADS] POSSIBLE ANTERIOR MYOCARDIAL INFARCTION , PROBABLY OLD [30 ms Q WAVE IN V3/V4, OR R < 0.2 mV IN V4] Compared to ECG 08/22/2022 22:06:01 Low QRS voltage now present Sinus tachycardia no longer present Atrial abnormality no longer present Myocardial infarct finding still present Electronically Signed On 08-23-2022 13:51:35 PSYCH NP by Gui Conway M.D. [id number]
[2022-08-23] MEDS: nicotine 14 mg Patch 1 PATCH TRANSDERMA (11:08)
[2022-08-23] MEDS: predniSONE 10 mg Tablet 20 MG PO (11:09)
[2022-08-23] MEDS: pantoprazole DR 40 mg Tablet PO (11:11)
[2022-08-23] MEDS: levothyroxine 100 mcg Tablet PO (11:11)
[2022-08-23 11:19] LABS: Troponin 5 2HR 6.74 ng/L (0-10)
[2022-08-23] MEDS: acetaminophen 500 mg Tablet PO (11:19)
[2022-08-23 11:40] LABS: Troponin 5 2HR Delta -0.26 ABS# (0-10)
--- NOTE | 2022-08-23 14:47 | ECG_ITS ---
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 Measurements Intervals [place] Rate: 82 P: 62 IA: 187 QRS: 10 QRSD: 82 T: 42 QT: 395 QTc: 462 Interpretive Statements SINUS RHYTHM LOW QRS VOLTAGE IN PRECORDIAL LEADS [QRS DEFLECTION < 1.0 mV IN CHEST LEADS] ANTEROSEPTAL MYOCARDIAL INFARCTION , OF INDETERMINATE AGE [40+ ms Q WAVE IN V1-V4] Compared to ECG 08/23/2022 09:00:49 No significant changes Electronically Signed On 08-23-2022 15:17:20 CUSTOM BIKE BUILDER by Gui Conway M.D. [id number]
--- NOTE | 2022-08-23 16:09 | PM.PN ---
Subjective Subjective: Patient was seen this morning, she feels a lot better, no fevers, no chills, she still feels a bit short of breath Vitals/I&O/Wt Last Vital Signs Temp 97.8 F 08/23/22 12:00 Pulse 80 08/23/22 12:00 Resp 18 08/23/22 14:29 BP 119/67 08/23/22 12:00 Pulse Ox 94 08/23/22 12:00 O2 Del Method 08/23/22 12:00 O2 Flow Rate 3 08/23/22 12:00 08/23/22 08/23/22 08/23/22 06:59 14:59 22:59 Intake Total 670 / 670 953.75 / 953.75 Balance 670 / 670 953.75 / 953.75 Weight last 48 hrs Weight 86.636 kg Physical Exam Const: COMMON NORMALS: no acute distress and patient oriented x3 Resp: COMMON NORMALS: normal respiratory effort, No retractions, No use of accessory muscles and clear to auscultation bilaterally AUSCULTATION: clear to auscultation bilaterally Cardio: COMMON NORMALS: regular rate, regular rhythm, S1 normal heart sound present and S2 normal heart sound present RATE: regular rate RHYTHM: regular rhythm HEART SOUNDS: S1 normal heart sound present and S2 normal heart sound present GI: COMMON NORMALS: Normal to inspection, nondistended, normoactive bowel sounds present, non-tender, no masses and no bruits Extremity: COMMON NORMALS: no pedal edema Neuro: COMMON NORMALS: patient oriented x3 Psych: COMMON NORMALS: mental status grossly normal Data 08/23/22 04:30 08/23/22 04:30 Micro: Microbiology 08/23/22 03:10 Legionella Urinary Antigen - Final Urine,Voided Bacterial Antigens - Final 08/23/22 03:10 Gram Stain - Final Sputum - Expectorated Sputum 08/22/22 22:18 Blood Culture - Preliminary Blood SPECIMEN COLLECTED 08/22/22 22:16 Blood Culture - Preliminary Blood SPECIMEN COLLECTED A&P Assessment and plan (1) Community acquired pneumonia: (2) Acute respiratory failure with hypoxia: (3) Facial swelling: (4) Compression fracture: (5) High risk medication use: (6) Depression with anxiety: (7) Intermittent palpitations: (8) Seronegative rheumatoid arthritis: (9) Polyarticular psoriatic arthritis: Plan Sepsis related to pneumonia Acute COPD exacerbation with acute on chronic hypoxic Patient is immunocompromised She takes methotrexate, hydroxychloroquine and prednisone 20 mg daily Check PCP antigen from sputum Check sputum culture, bacterial antigen, MRSA PCR We will start her on vancomycin, cefepime, check LDH Currently she is requiring 5 L of oxygen at home uses 3 L which would define acute on chronic hypoxia due to underlying pneumonia I would not repeat CT scan however 08/20 CT scan of chest did not show pneumonia Patient is stating that from penicillin she gets anaphylactic reaction last dose was given when she was a child Sepsis criteria met with fever tachypnea tachycardia and leukocytosis Follow blood cultures, sputum cultures Active smoker Full code Cardiac diet Compression fracture T6-T7 is new I would continue her oxycodone she gets nausea with Percocet Plan for today continue antibiotic therapy monitor respiratory status closely Attestations Medical Necessity Statement*: Patient requires hospitalization, inpatient, greater than 2 minutes for sepsis secondary to pneumonia Coding Level of Care Code 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
[2022-08-23] MEDS: carvedilol 25 mg Tablet PO (18:26)
[2022-08-24] VITALS (13 sets, daily range): BP systolic 102–150; BP diastolic 65–87; PULSE 72–91; RESP 14–20; TEMP 36.4–37.1; O2SAT 90–97
[2022-08-24] MEDS: acetaminophen 500 mg Tablet PO (01:50)
[2022-08-24] MEDS: temazepam 15 mg Capsule PO ×2 (01:50→23:08)
[2022-08-24] MEDS: vancomycin 1,250 MG/250 ML PIGGYBACK 250 MG IV (01:51)
[2022-08-24 04:28] LABS: Basophils % 0.2 %; Hematocrit 36.3 % (37.0-47.0); Hemoglobin 11.1 g/dL (11.5-15.3); Lymphocytes # 0.9 10^3/uL (0.8-4.8); Lymphocytes % 4.7 %; Mean Corpuscular HGB Conc 30.6 g/dL (30.0-36.0); Mean Corpuscular Hemoglobin 31.5 pg (28.0-34.0); Mean Corpuscular Volume 103.1 fl (81-99); Mean Platelet Volume 10.7 fL (7.4-10.4); Monocytes # 1.1 10^3/uL (0.2-0.9); Monocytes % 5.7 %; Neutrophils # 17.57 10^3/uL (1.8-7.7); Neutrophils % 88.6 %; Nucleated Red Blood Cells % 0 %; Platelet Count 143 10^3/cmm (130-400); Red Blood Count 3.52 10^6/uL (4.1-5.3); Red Cell Distribution Width 14.8 % (12.1-15.1); White Blood Count 19.8 10^3/uL (4.0-10.0)
[2022-08-24 05:11] LABS: Blood Urea Nitrogen 10 mg/dL (6-20); Calcium 9.1 mg/dL (8.5-10.5); Carbon Dioxide 38 mmol/L (22-29); Glomerular Filtration Rate 102.7 mL/min (90-130); Glucose 117 mg/dL (65-115); Potassium 3.2 mmol/L (3.5-5.1)
[2022-08-24] MEDS: cefepime 1,000 MG in sodium chloride 0.9% (plus) 50 ML 100 MG IV ×2 (05:49→19:41)
[2022-08-24] MEDS: heparin 5,000 unit/mL INJ 1 mL 5000 UNIT SUBCUT ×2 (05:49→17:51)
[2022-08-24] MEDS: ipratropium-albuterol 3 mL Neb INHALATION ×2 (07:42→20:56)
[2022-08-24] MEDS: budesonide 0.5 mg/2 mL Neb INHALATION ×2 (07:42→20:56)
[2022-08-24] MEDS: nicotine 14 mg Patch 1 PATCH TRANSDERMA (10:41)
[2022-08-24] MEDS: pantoprazole DR 40 mg Tablet PO (10:42)
[2022-08-24] MEDS: levothyroxine 100 mcg Tablet PO (10:42)
[2022-08-24] MEDS: predniSONE 10 mg Tablet 20 MG PO (10:42)
[2022-08-24] MEDS: carvedilol 25 mg Tablet PO ×2 (10:42→17:50)
[2022-08-24] MEDS: potassium chloride ER 20 mEq Tablet PO ×2 (10:42→11:01)
[2022-08-24] MEDS: sennosides-docusate Tablet 1 TAB PO (10:43)
[2022-08-24] MEDS: oxyCODONE 5 mg IR Tab/Cap PO (11:01)
[2022-08-24] MEDS: ALPRAZolam 0.5 mg Tablet PO ×2 (11:01→20:30)
--- NOTE | 2022-08-24 11:09 | XRR_ITS ---
PROCEDURE INFORMATION: Exam: XR Chest Exam date and time: 08/24/2022 12:43 PM Age: 56 years old Clinical indication: Shortness of breath; Additional info: Assess for changes TECHNIQUE: Imaging protocol: Radiologic exam of the chest. Views: 1 view. COMPARISON: CR (CHEST, ) 08/22/2022 10:16 PM FINDINGS: Lungs: There is a localized area of consolidation right lung apex mildly improved with some clearing of adjacent interstitial opacities. There is a 2nd wedge-shaped area of consolidation at the right lung base that is stable. There is a questionable small right perihilar area of consolidation that is also unchanged. Left lung field remains aerated and clear. Pleural spaces: Unremarkable. No pleural effusion. No pneumothorax. Heart/Mediastinum: Cardiac silhouette is enlarged but unchanged. Bones/joints: Unremarkable for age. XR/XR chest 1V portable [id number] IMPRESSION: Multifocal areas of consolidation right lung 1 of which is mildly improved while the others are relatively stable from previous exam. In view of the rapid development of these opacities on earlier study consider aspiration pneumonia or pulmonary infarcts.
[2022-08-24] MEDS: verapamil ER 180 mg Tablet PO (11:35)
[2022-08-24] MEDS: FUROsemide 10 mg/mL SDV 2mL 20 MG IVP (11:35)
[2022-08-24 12:02] LABS: Osmolality Calculated 290 mOsm/kg (285-295); Sodium 140 mmol/L (136-145)
[2022-08-24 12:03] LABS: Anion Gap 9.2 (5-19); Chloride 96 mmol/L (98-107)
--- NOTE | 2022-08-24 13:38 | CTR_ITS ---
PROCEDURE INFORMATION: Exam: CT Chest Without Contrast; Diagnostic Exam date and time: 08/24/2022 4:03 PM Age: 56 years old Clinical indication: Shortness of breath; Additional info: SOB TECHNIQUE: Imaging protocol: Diagnostic computed tomography of the chest without contrast. Radiation optimization: All CT scans at this facility use at least one of these dose optimization techniques: automated exposure control; mA and/or kV adjustment per patient size (includes targeted exams where dose is matched to clinical indication); or iterative reconstruction. COMPARISON: CT chest con [id number] 08/20/2022 1:49 PM RADIATION DOSE METRICS: Total DLP (mGy-cm): 587.82 FINDINGS: Lungs: There is extensive infiltrate in the right upper lobe likely secondary to pneumonia. There are 2 smaller similar appearing areas of consolidation present posteriorly within the right mid lung zone and anteriorly at the right lung base likely secondary to multifocal pneumonia with aspiration pneumonitis to be excluded. There are small indistinct peribronchial nodular opacities left mid lung zone likely secondary to bronchiolitis. Pleural spaces: Unremarkable. No pneumothorax. No pleural effusion. Heart: Heart is mildly enlarged. No significant coronary artery calcifications or pericardial effusion. Lymph nodes: Unremarkable. No enlarged lymph nodes. Vasculature: Scattered atherosclerotic changes of the thoracic aorta. No aortic aneurysm. Gallbladder and bile ducts: Gallbladder has been removed. Bile ducts are not appreciably dilated. Kidneys and ureters: Small nonobstructing right renal stones. Bones/joints: There are compression fractures involving T6 and T7 vertebral bodies home care, unchanged. Soft tissues: Unremarkable. CT/CT chest con [id number] IMPRESSION: 1. Interval development of multifocal infiltrates right lung likely secondary to pneumonia with aspiration pneumonitis to be excluded. 2. Mild cardiomegaly. 3. Stable compression fractures T6 and T7 vertebral bodies.
--- NOTE | 2022-08-24 13:40 | PM.PN ---
Subjective Subjective: Patient was seen this morning, she continues to complain of shortness of breath, wheezing, productive cough, no hemoptysis denies a history of DVTs or PE, is not on any long-term anticoagulation Vitals/I&O/Wt Last Vital Signs Temp 97.5 F L 08/24/22 11:50 Pulse 91 08/24/22 11:50 Resp 16 08/24/22 11:50 BP 138/87 08/24/22 11:50 Pulse Ox 94 08/24/22 11:50 O2 Del Method 08/24/22 11:50 O2 Flow Rate 3 08/24/22 07:44 08/23/22 08/24/22 08/24/22 22:59 06:59 14:59 Intake Total 300 / 1253.75 950 / 2203.75 Output Total 2400 / 2400 Balance -2100 / -1146.25 950 / -196.25 Weight last 48 hrs Weight 86.636 kg Physical Exam Const: COMMON NORMALS: no acute distress and patient oriented x3 Resp: COMMON NORMALS: normal respiratory effort, No retractions and No use of accessory muscles AUSCULTATION: wheezes Cardio: COMMON NORMALS: regular rate, regular rhythm, S1 normal heart sound present and S2 normal heart sound present RATE: regular rate RHYTHM: regular rhythm HEART SOUNDS: S1 normal heart sound present and S2 normal heart sound present GI: COMMON NORMALS: Normal to inspection, nondistended, normoactive bowel sounds present and non-tender Extremity: COMMON NORMALS: no pedal edema Neuro: COMMON NORMALS: patient oriented x3 Psych: COMMON NORMALS: mental status grossly normal Data 08/24/22 03:42 08/24/22 03:42 Micro: Microbiology 08/22/22 22:18 Blood Culture - Preliminary Blood NEGATIVE TO DATE 08/22/22 22:16 Blood Culture - Preliminary Blood NEGATIVE TO DATE 08/23/22 06:24 MRSA Culture - Final Nose 08/23/22 03:10 Legionella Urinary Antigen - Final Urine,Voided Bacterial Antigens - Final 08/23/22 03:10 Gram Stain - Final Sputum - Expectorated Sputum A&P Assessment and plan (1) Community acquired pneumonia: (2) Acute respiratory failure with hypoxia: (3) Facial swelling: (4) Compression fracture: (5) High risk medication use: (6) Depression with anxiety: (7) Intermittent palpitations: (8) Seronegative rheumatoid arthritis: (9) Polyarticular psoriatic arthritis: Plan Sepsis related to pneumonia System leukocytosis above 19,000 MRSA nares negative Acute COPD exacerbation with acute on chronic hypoxic Patient is immunocompromised She takes methotrexate, hydroxychloroquine and prednisone 20 mg daily Check PCP antigen from sputum Check sputum culture, pending LDH elevated to 286, beta glucan pending, PCP PCR, Aspergillus,HISTO, ALLI, TB Continue cefepime Currently she is requiring 5 L of oxygen at home uses 3 L which would define acute on chronic hypoxia due to underlying pneumonia Will repeat CT angiogram of the chest Patient is stating that from penicillin she gets anaphylactic reaction last dose was given when she was a child Sepsis criteria met with fever tachypnea tachycardia and leukocytosis Follow blood cultures, sputum cultures Active smoker Full code Cardiac diet Compression fracture T6-T7 is new I would continue her oxycodone she gets nausea with Percocet Plan for today continue antibiotic therapy monitor respiratory status closely, CT angiogram of the chest, order for studies, de-escalate off vancomycin Attestations Medical Necessity Statement*: Patient requires hospitalization for sepsis related to pneumonia, persistent leukocytosis Coding Level of Care Code Acute 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
[2022-08-24 15:16] LABS: Vancomycin Trough 11.2 ug/mL (10-15)
[2022-08-24 16:53] LABS: HIV 1 & 2 Antibody Non-Reactive (Non-Reactiv); HIV 1 & 2 Antigen Non-Reactive (Non-Reactiv)
[2022-08-24] MEDS: oxyCODONE 5 mg IR Tab/Cap 10 MG PO (17:50)
[2022-08-25] VITALS (16 sets, daily range): BP systolic 124–175; BP diastolic 69–96; PULSE 78–94; RESP 14–22; TEMP 36.4–37.3; O2SAT 90–98
[2022-08-25] MEDS: oxyCODONE 5 mg IR Tab/Cap 10 MG PO ×4 (03:58→22:26)
[2022-08-25 04:10] LABS: Basophils % 0.1 %; Hematocrit 36.7 % (37.0-47.0); Hemoglobin 11.2 g/dL (11.5-15.3); Lymphocytes % 7.3 %; Mean Corpuscular HGB Conc 30.5 g/dL (30.0-36.0); Mean Corpuscular Hemoglobin 31.4 pg (28.0-34.0); Mean Corpuscular Volume 102.8 fl (81-99); Monocytes # 0.8 10^3/uL (0.2-0.9); Monocytes % 5.6 %; Neutrophils # 12.16 10^3/uL (1.8-7.7); Neutrophils % 85.9 %; Nucleated Red Blood Cells % 0 %; Platelet Count 153 10^3/cmm (130-400); Red Blood Count 3.57 10^6/uL (4.1-5.3); White Blood Count 14.2 10^3/uL (4.0-10.0)
[2022-08-25 04:32] LABS: Anion Gap 9.3 (5-19); Blood Urea Nitrogen 9 mg/dL (6-20); Calcium 8.8 mg/dL (8.5-10.5); Carbon Dioxide 39 mmol/L (22-29); Chloride 93 mmol/L (98-107); Glomerular Filtration Rate 102.7 mL/min (90-130); Glucose 88 mg/dL (65-115); Osmolality Calculated 284 mOsm/kg (285-295); Potassium 3.3 mmol/L (3.5-5.1); Sodium 138 mmol/L (136-145)
[2022-08-25] MEDS: cefepime 1,000 MG in sodium chloride 0.9% (plus) 50 ML 100 MG IV ×2 (05:12→18:12)
[2022-08-25] MEDS: heparin 5,000 unit/mL INJ 1 mL 5000 UNIT SUBCUT ×2 (05:23→18:12)
[2022-08-25] MEDS: acetaminophen 500 mg Tablet PO (06:10)
[2022-08-25] MEDS: budesonide 0.5 mg/2 mL Neb INHALATION (08:25)
[2022-08-25] MEDS: ipratropium-albuterol 3 mL Neb INHALATION ×2 (08:25→13:43)
[2022-08-25] MEDS: nicotine 14 mg Patch 1 PATCH TRANSDERMA (09:08)
[2022-08-25] MEDS: verapamil ER 180 mg Tablet PO (09:08)
[2022-08-25] MEDS: potassium chloride ER 20 mEq Tablet PO (09:09)
[2022-08-25] MEDS: carvedilol 25 mg Tablet PO ×2 (09:09→18:12)
[2022-08-25] MEDS: pantoprazole DR 40 mg Tablet PO (09:09)
[2022-08-25] MEDS: levothyroxine 100 mcg Tablet PO (09:09)
[2022-08-25] MEDS: sennosides-docusate Tablet 1 TAB PO (09:09)
[2022-08-25] MEDS: predniSONE 10 mg Tablet 20 MG PO (09:09)
[2022-08-25] MEDS: fluoxetine 20 mg Capsule PO (09:16)
--- NOTE | 2022-08-25 09:29 | PC.SOCIAL ---
Imm update IMM updated with patient at bedside. Copy of page 2 provided. Patient verbalized understanding. Copy in chart initialed, dated and timed.
--- NOTE | 2022-08-25 12:49 | PM.PN ---
Subjective Subjective: Patient was seen this morning, she continues to have wheezing and shortness of breath, no fevers overnight, has a productive cough Vitals/I&O/Wt Last Vital Signs Temp 97.6 F 08/25/22 11:31 Pulse 92 08/25/22 11:31 Resp 16 08/25/22 11:31 BP 124/70 08/25/22 11:31 Pulse Ox 90 08/25/22 11:31 O2 Del Method 08/25/22 11:31 O2 Flow Rate 3 08/25/22 08:00 08/24/22 08/25/22 08/25/22 22:59 06:59 14:59 Intake Total 411.667 / 411.667 50 / 461.667 360 / 360 Output Total 400 / 400 Balance 411.667 / 411.667 -350 / 61.667 360 / 360 Physical Exam Const: COMMON NORMALS: no acute distress and patient oriented x3 Resp: COMMON NORMALS: normal respiratory effort, No retractions and No use of accessory muscles AUSCULTATION: wheezes Cardio: COMMON NORMALS: regular rate, regular rhythm, S1 normal heart sound present and S2 normal heart sound present RATE: regular rate RHYTHM: regular rhythm HEART SOUNDS: S1 normal heart sound present and S2 normal heart sound present GI: COMMON NORMALS: Normal to inspection, nondistended, normoactive bowel sounds present and non-tender Extremity: COMMON NORMALS: no pedal edema Neuro: COMMON NORMALS: patient oriented x3 Psych: COMMON NORMALS: mental status grossly normal Data 08/25/22 03:30 08/25/22 03:30 Micro: Microbiology 08/23/22 03:10 Gram Stain - Final Sputum - Expectorated Sputum Sputum Culture - Preliminary Streptococcus pneumoniae A&P Assessment and plan (1) Community acquired pneumonia: (2) Acute respiratory failure with hypoxia: (3) Facial swelling: (4) Compression fracture: (5) High risk medication use: (6) Depression with anxiety: (7) Intermittent palpitations: (8) Seronegative rheumatoid arthritis: (9) Polyarticular psoriatic arthritis: Plan Sepsis related to pneumonia Sputum culture was positive for strep pneumoniae MRSA nares negative Acute COPD exacerbation with acute on chronic hypoxic Patient is immunocompromised She takes methotrexate, hydroxychloroquine and prednisone 20 mg daily Check PCP antigen from sputum Check sputum sensitivities pending LDH elevated to 286, beta glucan pending, PCP PCR, Aspergillus,HISTO, ALLI, TB Continue cefepime Currently she is requiring 3 L of oxygen at home uses 3 L which would define acute on chronic hypoxia due to underlying pneumonia CT of the chest shows ?Interval development of multifocal infiltrates right lung likely secondary to pneumonia with aspiration pneumonitis to be excluded. Patient is stating that from penicillin she gets anaphylactic reaction last dose was given when she was a child Sepsis criteria met with fever tachypnea tachycardia and leukocytosis on admission, now resolved Follow blood cultures, sputum cultures Active smoker Full code Cardiac diet Compression fracture T6-T7 is new I would continue her oxycodone she gets nausea with Percocet Plan for today continue antibiotic therapy, follow strep pneumonia sensitivities, hopefully can be discharged in next 24 to 48 hours Attestations Medical Necessity Statement*: Patient requires hospitalization for sepsis related to pneumonia Coding Level of Care Code Acute Professor Of Education for g Fwd Diagnoses Community acquired pneumonia J18.9 Acute respiratory failure with hypoxia J96.01 Facial swelling R22.0 Compression fracture High risk medication use Z79.899 Depression with anxiety F41.8 Intermittent palpitations R00.2 Seronegative rheumatoid arthritis M06.00 Polyarticular psoriatic arthritis L40.59
[2022-08-25] MEDS: ALPRAZolam 0.5 mg Tablet PO (20:29)
[2022-08-26] VITALS (18 sets, daily range): BP systolic 123–176; BP diastolic 72–96; PULSE 64–97; RESP 16–22; TEMP 36.5–37.2; O2SAT 90–96
[2022-08-26] MEDS: heparin 5,000 unit/mL INJ 1 mL 5000 UNIT SUBCUT ×2 (05:02→17:14)
[2022-08-26] MEDS: cefepime 1,000 MG in sodium chloride 0.9% (plus) 50 ML 100 MG IV ×2 (05:02→17:13)
[2022-08-26] MEDS: oxyCODONE 5 mg IR Tab/Cap 10 MG PO ×3 (05:02→17:13)
[2022-08-26 05:48] LABS: Basophils % 0.1 %; Eosinophils % 0.2 %; Hemoglobin 10.9 g/dL (11.5-15.3); Lymphocytes # 1.4 10^3/uL (0.8-4.8); Lymphocytes % 16.4 %; Mean Corpuscular HGB Conc 29.5 g/dL (30.0-36.0); Mean Corpuscular Hemoglobin 30.9 pg (28.0-34.0); Mean Corpuscular Volume 104.8 fl (81-99); Mean Platelet Volume 10.5 fL (7.4-10.4); Monocytes # 0.8 10^3/uL (0.2-0.9); Monocytes % 9.9 %; Neutrophils # 6.03 10^3/uL (1.8-7.7); Neutrophils % 72.6 %; Nucleated Red Blood Cells % 0 %; Platelet Count 143 10^3/cmm (130-400); Red Blood Count 3.53 10^6/uL (4.1-5.3); Red Cell Distribution Width 15.3 % (12.1-15.1); White Blood Count 8.3 10^3/uL (4.0-10.0)
[2022-08-26 06:10] LABS: Anion Gap 11.6 (5-19); Blood Urea Nitrogen 8 mg/dL (6-20); Carbon Dioxide 38 mmol/L (22-29); Chloride 93 mmol/L (98-107); Glomerular Filtration Rate 102.7 mL/min (90-130); Glucose 102 mg/dL (65-115); Osmolality Calculated 287 mOsm/kg (285-295); Potassium 3.6 mmol/L (3.5-5.1); Sodium 139 mmol/L (136-145)
[2022-08-26] MEDS: fluoxetine 20 mg Capsule PO (08:33)
[2022-08-26] MEDS: carvedilol 25 mg Tablet PO ×2 (08:33→17:14)
[2022-08-26] MEDS: levothyroxine 100 mcg Tablet PO (08:34)
[2022-08-26] MEDS: sennosides-docusate Tablet 1 TAB PO (08:34)
[2022-08-26] MEDS: predniSONE 10 mg Tablet 20 MG PO (08:34)
[2022-08-26] MEDS: nicotine 14 mg Patch 1 PATCH TRANSDERMA (08:34)
[2022-08-26] MEDS: pantoprazole DR 40 mg Tablet PO (08:34)
[2022-08-26] MEDS: potassium chloride ER 20 mEq Tablet PO (08:34)
[2022-08-26] MEDS: verapamil ER 180 mg Tablet PO (08:39)
[2022-08-26] MEDS: acetaminophen 500 mg Tablet PO (08:39)
[2022-08-26] MEDS: ipratropium-albuterol 3 mL Neb INHALATION ×5 (08:47→23:17)
[2022-08-26] MEDS: budesonide 0.5 mg/2 mL Neb INHALATION ×2 (08:47→19:30)
--- NOTE | 2022-08-26 17:07 | PM.PN ---
Subjective Subjective: Patient was seen and examined this morning, shortness of breath is slightly improved, she is complaining of dizziness while walking, has significant wheezing, WBC count is trending down, has been afebrile. Medications: Medication Review Details: Generic Name Dose Route Start Last Admin Trade Name Joya PRN Reason Stop Dose Admin Acetaminophen 500 mg 08/23/22 00:44 08/26/22 08:39 Acetaminophen 50 0 Mg Tablet PO 500 mg Q4H PRN Administration fever Albuterol/Ipratrop ium 3 ml 08/23/22 00:44 08/26/22 08:47 Ipratropium-Albu terol 3 Ml Neb INHALATION 3 ml Q6H PRN Administration SHORTNESS OF CONSTANTINE TH Albuterol/Ipratrop ium 3 ml 08/26/22 12:00 08/26/22 16:00 Ipratropium-Albu terol 3 Ml Neb INHALATION 3 ml Q4H.RESPIRATORY S CH Administration Alprazolam 0.5 mg 08/24/22 11:00 08/25/22 20:29 Alprazolam 0.5 M g Tablet PO 0.5 mg BEDTIME AKUA Administration Budesonide 0.5 mg 08/23/22 08:00 08/26/22 08:47 Budesonide 0.5 M g/2 Ml Neb INHALATION 0.5 mg BID.RESPIRATORY S CH Administration Carvedilol 25 mg 08/23/22 09:00 08/26/22 08:33 Carvedilol 25 Mg Tablet PO 25 mg BID AKUA Administration Fluoxetine HCl 20 mg 08/25/22 11:00 08/26/22 08:33 Fluoxetine 20 Mg Capsule PO 20 mg DAILY AKUA Administration Heparin Sodium (Po rcine) 5,000 unit 08/23/22 06:00 08/26/22 05:02 Heparin 5,000 Un it/Ml Inj 1 Ml SUBCUT 5,000 unit Q12H AKUA Administration Cefepime HCl 1,000 mg/ Sodium 50 mls @ 100 mls/ hr 08/23/22 06:00 08/26/22 05:40 Chloride IV Infused Q12H AKUA Infusion Protocol Levothyroxine Sodi um 100 mcg 08/23/22 09:00 08/26/22 08:34 Levothyroxine 10 0 Mcg Tablet PO 100 mcg DAILY AKUA Administration Nicotine 1 patch 08/23/22 09:00 08/26/22 08:34 Nicotine 14 Mg P atch TRANSDERMA 1 patch DAILY AKUA Administration Oxycodone HCl 10 mg 08/24/22 11:09 08/26/22 11:14 Oxycodone 5 Mg I r Tab/Cap PO 10 mg Q6H PRN Administration MODERATE PAIN Pantoprazole Sodiu m 40 mg 08/23/22 09:00 08/26/22 08:[address] 40 Mg Tablet PO 40 mg DAILY AKUA Administration Potassium Chloride 20 meq 08/23/22 04:00 08/26/22 08:34 Potassium Chlori de Er 20 Meq Table t PO 20 meq DAILY AKUA Administration Senna/Docusate Sod ium 1 tab 08/23/22 09:00 08/26/22 08:34 Sennosides-Docus ate Tablet PO 1 tab DAILY AKUA Administration Verapamil HCl 180 mg 08/23/22 09:00 08/26/22 08:39 Verapamil Er 180 Mg Tablet PO 180 mg DAILY AKUA Administration Vitals/I&O/Wt Last Vital Signs Temp 97.7 F 08/26/22 12:00 Pulse 82 08/26/22 16:00 Resp 20 H 08/26/22 16:00 BP 123/75 08/26/22 12:00 Pulse Ox 93 08/26/22 16:00 O2 Del Method 08/26/22 16:00 O2 Flow Rate 3.5 08/26/22 16:00 08/26/22 08/26/22 08/26/22 06:59 14:59 22:59 Intake Total 1889 / 2780 Balance 1889 / 2779 Physical Exam Resp: EFFORT & INSPECTION: Yes symmetric chest movement OTHER: Extensive bilateral wheezing in both lungs field Cardio: COMMON NORMALS: regular rate, regular rhythm, S1 normal heart sound present, S2 normal heart sound present, No gallops present (Cardio), No murmurs present (Cardio), No rub (Cardio) and Peripheral pulses 2+ throughout RATE: regular rate RHYTHM: regular rhythm HEART SOUNDS: S1 normal heart sound present and S2 normal heart sound present PERIPHERAL PULSES: Peripheral pulses 2+ throughout GI: COMMON NORMALS: Normal to inspection, nondistended, normoactive bowel sounds present, Soft to palpation, non-tender, No hepatosplenomegaly present and no masses AUSCULTATION: Yes normoactive bowel sounds PALPATION: Yes Soft to palpation and Yes No hepatosplenomegaly present RECTAL EXAM: deferred Extremity: COMMON NORMALS: no clubbing, cyanosis or edema and no pedal edema Data 08/26/22 05:30 08/26/22 05:30 Micro: Microbiology 08/23/22 03:10 Gram Stain - Final Sputum - Expectorated Sputum Sputum Culture - Final Streptococcus pneumoniae 08/24/22 08:30 Sputum Culture - Preliminary Sputum - Expectorated Sputum A&P Assessment and plan (1) Community acquired pneumonia: (2) Acute respiratory failure with hypoxia: (3) Facial swelling: (4) Compression fracture: (5) High risk medication use: (6) Depression with anxiety: (7) Intermittent palpitations: (8) Seronegative rheumatoid arthritis: (9) Polyarticular psoriatic arthritis: Plan Sepsis related to pneumonia Sputum culture was positive for strep pneumoniae MRSA nares negative Acute COPD exacerbation with acute on chronic hypoxic Patient is immunocompromised She takes methotrexate, hydroxychloroquine and prednisone 20 mg daily Check PCP antigen from sputum Check sputum sensitivities pending LDH elevated to 286, beta glucan pending, PCP PCR, Aspergillus,HISTO, ALLI, TB Continue cefepime Currently she is requiring 3 L of oxygen at home uses 3 L which would define acute on chronic hypoxia due to underlying pneumonia CT of the chest shows ?Interval development of multifocal infiltrates right lung likely secondary to pneumonia with aspiration pneumonitis to be excluded. Patient is stating that from penicillin she gets anaphylactic reaction last dose was given when she was a child Sepsis criteria met with fever tachypnea tachycardia and leukocytosis on admission, now resolved Follow blood cultures, sputum cultures Active smoker Full code Cardiac diet Compression fracture T6-T7 is new I would continue her oxycodone she gets nausea with Percocet Plan for today: Continue IV antibiotics for now, will do home oxygen evaluation once She is more relatively , stable, due to extensive wheezing, patient will need IV steroids. We will give her Solu-Medrol 125 IV one-time dose. Will start on Solu-Medrol 40 twice daily. Orthostatic vitals Attestations Medical Necessity Statement*: Patient needs to be in hospital for management of sepsis pneumonia. 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
[2022-08-26] MEDS: ALPRAZolam 0.5 mg Tablet PO (20:15)
[2022-08-27] VITALS (21 sets, daily range): BP systolic 151–190; BP diastolic 70–83; PULSE 73–89; RESP 15–22; TEMP 36.4–37.4; O2SAT 91–97
[2022-08-27] MEDS: oxyCODONE 5 mg IR Tab/Cap 10 MG PO ×5 (00:04→21:50)
[2022-08-27] MEDS: ipratropium-albuterol 3 mL Neb INHALATION ×6 (03:03→23:58)
[2022-08-27 05:53] LABS: Basophils % 0.2 %; Hematocrit 36.4 % (37.0-47.0); Hemoglobin 11.1 g/dL (11.5-15.3); Lymphocytes # 0.8 10^3/uL (0.8-4.8); Lymphocytes % 15.5 %; Mean Corpuscular HGB Conc 30.5 g/dL (30.0-36.0); Mean Corpuscular Hemoglobin 31.1 pg (28.0-34.0); Mean Platelet Volume 10.4 fL (7.4-10.4); Monocytes # 0.5 10^3/uL (0.2-0.9); Monocytes % 8.9 %; Neutrophils # 3.71 10^3/uL (1.8-7.7); Neutrophils % 73.8 %; Nucleated Red Blood Cells % 0 %; Platelet Count 168 10^3/cmm (130-400); Red Blood Count 3.57 10^6/uL (4.1-5.3); Red Cell Distribution Width 14.7 % (12.1-15.1)
[2022-08-27 06:07] LABS: Anion Gap 15.1 (5-19); Blood Urea Nitrogen 8 mg/dL (6-20); Calcium 9.1 mg/dL (8.5-10.5); Carbon Dioxide 37 mmol/L (22-29); Chloride 95 mmol/L (98-107); Glomerular Filtration Rate 126.7 mL/min (90-130); Glucose 168 mg/dL (65-115); Osmolality Calculated 298 mOsm/kg (285-295); Potassium 4.1 mmol/L (3.5-5.1); Sodium 143 mmol/L (136-145)
[2022-08-27] MEDS: heparin 5,000 unit/mL INJ 1 mL 5000 UNIT SUBCUT (06:07)
[2022-08-27] MEDS: cefepime 1,000 MG in sodium chloride 0.9% (plus) 50 ML 100 MG IV ×2 (06:08→17:45)
[2022-08-27 06:35] LABS: Slide Review Slide Review Perform
[2022-08-27] MEDS: fluoxetine 20 mg Capsule PO (07:48)
[2022-08-27] MEDS: verapamil ER 180 mg Tablet PO (07:48)
[2022-08-27] MEDS: nicotine 14 mg Patch 1 PATCH TRANSDERMA (07:48)
[2022-08-27] MEDS: carvedilol 25 mg Tablet PO ×2 (07:49→17:46)
[2022-08-27] MEDS: pantoprazole DR 40 mg Tablet PO (07:49)
[2022-08-27] MEDS: levothyroxine 100 mcg Tablet PO (07:49)
[2022-08-27] MEDS: potassium chloride ER 20 mEq Tablet PO (07:49)
[2022-08-27] MEDS: sennosides-docusate Tablet 1 TAB PO (07:49)
[2022-08-27] MEDS: budesonide 0.5 mg/2 mL Neb INHALATION ×2 (08:04→20:11)
--- NOTE | 2022-08-27 10:15 | PC.SOCIAL ---
IMM update IMM updated with patient. Vebalized an understanding. Initialled, dated, timed, and placed in chart.
[2022-08-27 12:29] LABS: Quantiferon Mitogen 5.26 IU/mL; Quantiferon Nil 0.06 IU/mL; Quantiferon Plus TB1 0.01 IU/mL; Quantiferon TB Gold NEGATIVE (NEGATIVE)
--- NOTE | 2022-08-27 15:50 | PM.PN ---
Subjective Subjective: Patient was seen and examined this morning, she was still complaining of significant shortness of breath with minimal exertion, though the wheezing has improved today. TB QuantiFERON gold is negative. Medications: Medication Review Details: Generic Name Dose Route Start Last Admin Trade Name Freq PRN Reason Stop Dose Admin Acetaminophen 500 mg 08/23/22 00:44 08/26/22 08:39 Acetaminophen 50 0 Mg Tablet PO 500 mg Q4H PRN Administration fever Albuterol/Ipratrop ium 3 ml 08/23/22 00:44 08/26/22 08:47 Ipratropium-Albu terol 3 Ml Neb INHALATION 3 ml Q6H PRN Administration SHORTNESS OF CONSTANTINE TH Albuterol/Ipratrop ium 3 ml 08/26/22 12:00 08/27/22 11:21 Ipratropium-Albu terol 3 Ml Neb INHALATION 3 ml Q4H.RESPIRATORY S CH Administration Alprazolam 0.5 mg 08/24/22 11:00 08/26/22 20:15 Alprazolam 0.5 M g Tablet PO 0.5 mg BEDTIME AKUA Administration Budesonide 0.5 mg 08/23/22 08:00 08/27/22 08:04 Budesonide 0.5 M g/2 Ml Neb INHALATION 0.5 mg BID.RESPIRATORY S CH Administration Carvedilol 25 mg 08/23/22 09:00 08/27/22 07:49 Carvedilol 25 Mg Tablet PO 25 mg BID AKUA Administration Fluoxetine HCl 20 mg 08/25/22 11:00 08/27/22 07:48 Fluoxetine 20 Mg Capsule PO 20 mg DAILY AKUA Administration Heparin Sodium (Po rcine) 5,000 unit 08/23/22 06:00 08/27/22 06:07 Heparin 5,000 Un it/Ml Inj 1 Ml SUBCUT 5,000 unit Q12H AKUA Administration Cefepime HCl 1,000 mg/ Sodium 50 mls @ 100 mls/ hr 08/23/22 06:00 08/27/22 06:40 Chloride IV Infused Q12H AKUA Infusion Protocol Levothyroxine Sodi um 100 mcg 08/23/22 09:00 08/27/22 07:49 Levothyroxine 10 0 Mcg Tablet PO 100 mcg DAILY AKUA Administration Methylprednisolone Sodium Succinate 40 mg 08/27/22 14:00 08/27/22 13:27 Methylprednisolo ne Sod Succ 40 Mg/ Ml Inj IVP 40 mg Q8H AKUA Administration Nicotine 1 patch 08/23/22 09:00 08/27/22 07:48 Nicotine 14 Mg P atch TRANSDERMA 1 patch DAILY AKUA Administration Oxycodone HCl 10 mg 08/27/22 10:00 08/27/22 13:27 Oxycodone 5 Mg I r Tab/Cap PO 10 mg Q4H PRN Administration MODERATE PAIN Pantoprazole Sodiu m 40 mg 08/23/22 09:00 08/27/22 07:[address] 40 Mg Tablet PO 40 mg DAILY AKUA Administration Potassium Chloride 20 meq 08/23/22 04:00 08/27/22 07:49 Potassium Chlori de Er 20 Meq Table t PO 20 meq DAILY AKUA Administration Senna/Docusate Sod ium 1 tab 08/23/22 09:00 08/27/22 07:49 Sennosides-Docus ate Tablet PO 1 tab DAILY AKUA Administration Verapamil HCl 180 mg 08/23/22 09:00 08/27/22 07:48 Verapamil Er 180 Mg Tablet PO 180 mg DAILY AKUA Administration Vitals/I&O/Wt Last Vital Signs Temp 98.2 F 08/27/22 15:36 Pulse 89 08/27/22 15:36 Resp 16 08/27/22 15:36 BP 163/83 08/27/22 15:36 Pulse Ox 91 08/27/22 15:36 O2 Del Method 08/27/22 15:36 O2 Flow Rate 3.5 08/27/22 15:36 08/27/22 08/27/22 08/27/22 06:59 14:59 22:59 Intake Total 50 / 580 Output Total 1500 / 1500 Balance -1450 / -920 Physical Exam Resp: EFFORT & INSPECTION: Yes symmetric chest movement OTHER: Bilateral wheezing in both lungs field Cardio: COMMON NORMALS: regular rate, regular rhythm, S1 normal heart sound present, S2 normal heart sound present, No gallops present (Cardio), No murmurs present (Cardio), No rub (Cardio) and Peripheral pulses 2+ throughout RATE: regular rate RHYTHM: regular rhythm HEART SOUNDS: S1 normal heart sound present and S2 normal heart sound present PERIPHERAL PULSES: Peripheral pulses 2+ throughout GI: COMMON NORMALS: Normal to inspection, nondistended, normoactive bowel sounds present, Soft to palpation, non-tender, No hepatosplenomegaly present and no masses AUSCULTATION: Yes normoactive bowel sounds PALPATION: Yes Soft to palpation and Yes No hepatosplenomegaly present RECTAL EXAM: deferred Extremity: COMMON NORMALS: no clubbing, cyanosis or edema and no pedal edema Data 08/27/22 05:18 08/27/22 05:18 Micro: Microbiology 08/24/22 08:30 Sputum Culture - Final Sputum - Expectorated Sputum 08/23/22 03:10 Gram Stain - Final Sputum - Expectorated Sputum Sputum Culture - Final Streptococcus pneumoniae A&P Assessment and plan (1) Community acquired pneumonia: (2) Acute respiratory failure with hypoxia: (3) Facial swelling: (4) Compression fracture: (5) High risk medication use: (6) Depression with anxiety: (7) Intermittent palpitations: (8) Seronegative rheumatoid arthritis: (9) Polyarticular psoriatic arthritis: Plan 56-year-old female with significant past medical history of hypothyroidism, COPD, chronic smoker, rheumatoid arthritis, on methotrexate HCQ and prednisone, coronary artery disease hypertension, COVID-19 pneumonia status post tracheostomy, discharged home on 3 L oxygen, was admitted with chief complaint of worsening shortness of breath. Currently she is being managed for: Assessment: Sepsis secondary pneumonia Community-acquired pneumonia Acute on chronic hypoxic respiratory failure COPD exacerbation History of hypothyroidism History of RA on methotrexate HCQ ,prednisone History of COVID-19 Hypertension Chronic smoker compression fractures T6 and T7 vertebral bodies: Pain control : On oxycodone subpleural nodule measuring 5 mm in the LEFT lower lobe posteriorly: Pulmonary follow-up as outpatient. Plan: Follow a.m. chest x-ray CT chest without contrast: Showed multifocal pneumonia predominantly right lung MRSA PCR negative Sputum gram stain and culture: Normal blake Urine Legionella antigen negative Bacterial panel negative Blood culture negative QuantiFERON gold: Negative HIV negative Galactomannan antigen pending Blasto mycosis antigen: Pending PCP pending Beta D glucan pending Though her LDH is high: Is not a very specific marker for PCP, it can be high due to variety of other reasons both pulmonary and extrapulmonary. if the LDH was normal: Then likelihood of having PCP will be low. Continue DuoNebs, Solu-Medrol IV, supplemental oxygen as needed Continue cefepime for now, will plan to discharge on p.o. antibiotics to complete 14-day course of antibiotics for pneumonia, given her immunocompromise status. Orthostatic vitals CODE STATUS: Full code DVT prophylaxis : On Lovenox Attestations Medical Necessity Statement*: Patient is still in hospital for management of sepsis need for IV antibiotics Time Spent in Patient Care: Greater than 35 minutes (>than 50% of time spent in counselling and/or direct pt care on unit). Coding Level of Care Code Acute Director Network Development for g Fwd Exam Expanded Problem Focused Diagnoses Community acquired pneumonia J18.9 Acute respiratory failure with hypoxia J96.01 Facial swelling R22.0 Compression fracture High risk medication use Z79.899 Depression with anxiety F41.8 Intermittent palpitations R00.2 Seronegative rheumatoid arthritis M06.00 Polyarticular psoriatic arthritis L40.59
[2022-08-27] MEDS: hyDRALAzine 50 mg Tablet PO (17:46)
[2022-08-27] MEDS: ALPRAZolam 0.5 mg Tablet PO (20:35)
[2022-08-28] VITALS (21 sets, daily range): BP systolic 145–194; BP diastolic 74–95; PULSE 62–83; RESP 16–21; TEMP 36.8–37.6; O2SAT 87–100
[2022-08-28] MEDS: oxyCODONE 5 mg IR Tab/Cap 10 MG PO ×4 (02:17→14:46)
[2022-08-28] MEDS: ipratropium-albuterol 3 mL Neb INHALATION ×4 (03:40→15:11)
[2022-08-28 05:04] LABS: Basophils % 0.1 %; Hematocrit 36.9 % (37.0-47.0); Hemoglobin 11.3 g/dL (11.5-15.3); Lymphocytes # 1.1 10^3/uL (0.8-4.8); Lymphocytes % 14.9 %; Mean Corpuscular HGB Conc 30.6 g/dL (30.0-36.0); Mean Corpuscular Volume 101.1 fl (81-99); Mean Platelet Volume 10.7 fL (7.4-10.4); Monocytes # 0.5 10^3/uL (0.2-0.9); Monocytes % 6.9 %; Neutrophils # 5.64 10^3/uL (1.8-7.7); Neutrophils % 76.7 %; Nucleated Red Blood Cells % 0 %; Platelet Count 192 10^3/cmm (130-400); Red Blood Count 3.65 10^6/uL (4.1-5.3); Red Cell Distribution Width 14.6 % (12.1-15.1); White Blood Count 7.4 10^3/uL (4.0-10.0)
[2022-08-28 05:22] LABS: Anion Gap 12.3 (5-19); Blood Urea Nitrogen 10 mg/dL (6-20); Calcium 9.2 mg/dL (8.5-10.5); Carbon Dioxide 39 mmol/L (22-29); Chloride 93 mmol/L (98-107); Glomerular Filtration Rate 126.7 mL/min (90-130); Glucose 131 mg/dL (65-115); Osmolality Calculated 291 mOsm/kg (285-295); Potassium 4.3 mmol/L (3.5-5.1); Sodium 140 mmol/L (136-145)
--- NOTE | 2022-08-28 06:00 | XRR_ITS ---
PROCEDURE INFORMATION: Exam: XR Chest Exam date and time: 08/28/2022 6:25 AM Age: 56 years old Clinical indication: Other: Pneumonia follow up TECHNIQUE: Imaging protocol: Radiologic exam of the chest. Views: 1 view. COMPARISON: CT chest con [id number] 08/24/2022 4:03 PM FINDINGS: Lungs: Resolving consolidation right upper lobe with mild residual interstitial infiltrate. Diminished consolidation right lower lobe laterally with residual right infrahilar lower lung interstitial infiltrate and likely component of bronchiectasis. Minor left infrahilar interstitial opacity or atelectasis. Pleural spaces: Unremarkable. No pleural effusion. No pneumothorax. Heart/Mediastinum: Cardiomegaly. Vasculature: Tortuous aorta. Bones/joints: Degenerative changes of the spine. XR/XR chest 1V portable [id number] IMPRESSION: 1. Diminishing consolidative infiltrates from the right upper lobe and lateral right lower lung with residual interstitial changes throughout the right lung. 2. Minor left infrahilar areas of atelectasis or scarring. 3. Cardiomegaly.
[2022-08-28] MEDS: enoxaparin 40 mg/0.4 mL Syringe SUBCUT (06:21)
[2022-08-28] MEDS: cefepime 1,000 MG in sodium chloride 0.9% (plus) 50 ML 100 MG IV (06:21)
[2022-08-28] MEDS: budesonide 0.5 mg/2 mL Neb INHALATION (08:03)
[2022-08-28] MEDS: carvedilol 25 mg Tablet PO (08:25)
[2022-08-28] MEDS: potassium chloride ER 20 mEq Tablet PO (08:25)
[2022-08-28] MEDS: levothyroxine 100 mcg Tablet PO (08:25)
[2022-08-28] MEDS: sennosides-docusate Tablet 1 TAB PO (08:26)
[2022-08-28] MEDS: fluoxetine 20 mg Capsule PO (08:26)
[2022-08-28] MEDS: nicotine 14 mg Patch 1 PATCH TRANSDERMA (08:26)
[2022-08-28] MEDS: pantoprazole DR 40 mg Tablet PO (08:26)
[2022-08-28] MEDS: verapamil ER 180 mg Tablet PO (09:51)
--- NOTE | 2022-08-28 12:35 | PM.DCS ---
Discharge Providers Date of Admission: 08/22/22 22:36 Date of Discharge: August 28, 2022 Attending Provider at Admission: Jennifer Bailey MD Attending Provider at Discharge: Pedro Rueda MD Primary Care Provider: Afia Barrett NP Diagnoses at Discharge Discharge Diagnosis (1) Community acquired pneumonia: Status: Acute (2) Acute respiratory failure with hypoxia: Status: Acute (3) Facial swelling: Status: Acute (4) Compression fracture: Status: Acute (5) High risk medication use: Status: Acute (6) Depression with anxiety: Status: Acute (7) Intermittent palpitations: Status: Acute (8) Seronegative rheumatoid arthritis: Status: Acute (9) Polyarticular psoriatic arthritis: Status: Chronic Reason for Visit Reason for Visit: SOB Hospital Course Hospital Course 56-year-old female with significant past medical history of hypothyroidism, COPD, chronic smoker, rheumatoid arthritis, on methotrexate HCQ and prednisone, coronary artery disease hypertension, COVID-19 pneumonia status post tracheostomy, discharged home on 3 L oxygen, was admitted with chief complaint of worsening shortness of breath. During the hospital stay she was managed for sepsis secondary to community-acquired pneumonia,Acute on chronic hypoxic respiratory failure, COPD exacerbation,History of hypothyroidism, History of RA on methotrexate HCQ ,prednisone, History of COVID-19,Hypertension Chronic smoker,compression fractures T6 and T7 vertebral bodies: Pain control : On oxycodone subpleural nodule measuring 5 mm in the LEFT lower lobe posteriorly: Pulmonary follow-up as outpatient. CT chest without contrast: Showed multifocal pneumonia predominantly right lung,MRSA PCR negative Sputum gram stain and culture: Normal blake,Urine Legionella antigen negative,Bacterial panel negative Blood culture negative,QuantiFERON gold: Negative,HIV negative,Galactomannan antigen pending Blasto mycosis antigen: Pending,PCP pending, Beta D glucan pending, patient was kept on broad-spectrum antibiotics steroids, supplemental oxygen as needed duo nebs, to which she responded well, x-ray chest done prior to discharge: Had shown improvement in the infiltrates predominantly in the right upper lung field, prior to discharge patient was afebrile, required 3 L oxygen on discharge, patient has been asked to follow-up with pulmonary as well as primary care physician as outpatient.She was discharged in stable condition to home. Physical Exam Narrative: Not in acute distress alert awake oriented x3 Resp: EFFORT & INSPECTION: Yes symmetric chest movement OTHER: Minimal expiratory bilateral wheezing in both the lungs allred Cardio: COMMON NORMALS: regular rate, regular rhythm, S1 normal heart sound present, S2 normal heart sound present, No gallops present (Cardio), No murmurs present (Cardio), No rub (Cardio) and Peripheral pulses 2+ throughout RATE: regular rate RHYTHM: regular rhythm HEART SOUNDS: S1 normal heart sound present and S2 normal heart sound present PERIPHERAL PULSES: Peripheral pulses 2+ throughout GI: COMMON NORMALS: Normal to inspection, nondistended, normoactive bowel sounds present, Soft to palpation, non-tender, No hepatosplenomegaly present and no masses AUSCULTATION: Yes normoactive bowel sounds PALPATION: Yes Soft to palpation and Yes No hepatosplenomegaly present RECTAL EXAM: deferred Extremity: COMMON NORMALS: no clubbing, cyanosis or edema and no pedal edema Discharge Data Studies Completed and Pending Completed Studies During Hospitalization Category Date Time Status CT chest wo con [id number] Routine Cat Scan 08/24/22 13:38 Completed XR chest 1V portable [id number] Routine Exams 08/24/22 11:09 Completed XR chest 1V portable [id number] Routine Exams 08/28/22 06:00 Completed XR chest 1V portable [id number] Stat Exams 08/22/22 22:03 Completed Pending at discharge Category Date Time Status Aspergillus AG,EIA,Serum Stat Lab 08/24/22 14:29 Received BLASTOMYCES AG [MVista Blastomyces AG Quant] Routine Lab 08/24/22 14:29 Received BMP [Basic Metabolic Panel] AM LABS Lab 08/29/22 04:00 Ordered CBC Auto Diff [Complete Blood Count w/Auto] AM LABS Lab 08/29/22 04:00 Ordered Fungal Culture not HR/SK/BL Stat Lab 08/25/22 11:00 Received Fungitell Glucan Assay (Blood) Routine Lab 08/26/22 05:30 Received Pneumocystis PCP [Pneumocystis jiroveci Qual PCR] Lab 08/23/22 11:00 Received Routine Radiology Impressions Chest CT 08/24/22 13:38 IMPRESSION: 1. Interval development of multifocal infiltrates right lung likely secondary to pneumonia with aspiration pneumonitis to be excluded. 2. Mild cardiomegaly. 3. Stable compression fractures T6 and T7 vertebral bodies. Chest X-Ray 08/28/22 06:00 IMPRESSION: 1. Diminishing consolidative infiltrates from the right upper lobe and lateral right lower lung with residual interstitial changes throughout the right lung. 2. Minor left infrahilar areas of atelectasis or scarring. 3. Cardiomegaly. Laboratory Results WBC 7.4 10^3/uL (4.0-10.0) 08/28/22 04:23 RBC 3.65 10^6/uL (4.1-5.3) L 08/28/22 04:23 Hgb 11.3 g/dL (11.5-15.3) L 08/28/22 04:23 Hct 36.9 % (37.0-47.0) L 08/28/22 04:23 MCV 101.1 fl (81-99) H 08/28/22 04:23 MCH 31.0 pg (28.0-34.0) 08/28/22 04:23 MCHC 30.6 g/dL (30.0-36.0) 08/28/22 04:23 RDW 14.6 % (12.1-15.1) 08/28/22 04:23 Plt Count 192 10^3/cmm (130-400) 08/28/22 04:23 MPV 10.7 fL (7.4-10.4) H 08/28/22 04:23 Neut % (Auto) 76.7 % 08/28/22 04:23 Lymph % (Auto) 14.9 % 08/28/22 04:23 [place]fl[place] % (Auto) 6.9 % 08/28/22 04:23 Eos % (Auto) 0.0 % 08/28/22 04:23 Baso % (Auto) 0.1 % 08/28/22 04:23 Neut # (Auto) 5.64 10^3/uL (1.8-7.7) 08/28/22 04:23 Lymph # (Auto) 1.1 10^3/uL (0.8-4.8) 08/28/22 04:23 [place]ifflin # (Auto) 0.5 10^3/uL (0.2-0.9) 08/28/22 04:23 Eos # (Auto) 0.0 10^3/uL (0.0-0.8) 08/28/22 04:23 Baso # (Auto) 0.0 10^3/uL (0.0-0.1) 08/28/22 04:23 Nucleated RBC % (auto) 0 % 08/28/22 04:23 Nucleated RBCs # 0.0 /100WBC 08/28/22 04:23 D-Dimer 0.49 ug/mIFEU (0-0.59) 08/22/22 22:18 Sodium 140 mmol/L (136-145) 08/28/22 04:23 Potassium 4.3 mmol/L (3.5-5.1) 08/28/22 04:23 Chloride 93 mmol/L (98-107) L 08/28/22 04:23 Carbon Dioxide 39 mmol/L (22-29) H 08/28/22 04:23 Anion Gap 12.3 (5-19) 08/28/22 04:23 BUN 10 mg/dL (6-20) 08/28/22 04:23 Creatinine 0.5 mg/dL (0.5-0.9) 08/28/22 04:23 GFR Calculation 126.7 mL/min (90-130) 08/28/22 04:23 Glucose 131 mg/dL (65-115) H 08/28/22 04:23 Calculated Osmolality 291 mOsm/kg (285-295) 08/28/22 04:23 Lactic Acid 1.6 mmol/L (0.5-2.2) 08/22/22 22:18 Calcium 9.2 mg/dL (8.5-10.5) 08/28/22 04:23 Phosphorus 4.0 mg/dL (2.5-4.5) 08/23/22 04:30 Magnesium 1.8 mg/dL (1.7-2.3) 08/23/22 04:30 Total Bilirubin 0.5 mg/dL (0.15-1.2) 08/22/22 22:18 AST 11 U/L (0-32) 08/22/22 22:18 ALT 13 U/L (0-33) 08/22/22 22:18 Alkaline Phosphatase 67 U/L (35-105) 08/22/22 22:18 Lactate Dehydrogenase 286 U/L (135-214) H 08/22/22 22:18 Troponin T Baseline 7 ng/L (0-10) 08/23/22 08:00 Troponin T 120 Minute 6.74 ng/L (0-10) 08/23/22 10:50 Delta Troponin T -0.26 ABS# (0-10) L 08/23/22 10:50 Troponin T Hi Sens 6Hr 6.20 ng/L (0-10) 08/23/22 14:30 Troponin T Hi Sens 6Hr Delta -0.80 ng/L (0-12) L 08/23/22 14:30 C-Reactive Protein 231.8 mg/L (0.0-4.9) H 08/23/22 04:30 NT-Pro-B Natriuret Pep 1042 pg/mL (0-125) H 08/23/22 08:00 Total Protein 6.4 g/dL (6.6-8.7) L 08/22/22 22:18 Albumin 3.9 g/dL (3.5-5.2) 08/22/22 22:18 Globulin 2.5 g/dL (1.3-4.6) 08/22/22 22:18 Procalcitonin 0.30 ng/mL (0-0.5) 08/22/22 22:18 Vancomycin Trough 11.2 ug/mL (10-15) 08/24/22 14:29 Histoplasma Antigen Cancelled 08/24/22 11:00 Histoplasma Ag (Qnt) Cancelled 08/24/22 11:00 Histoplasma Ag Interp Cancelled 08/24/22 11:00 HIV 1&2 Ab & HIV 1 Ag Non-reactive (Non-Reactiv) 08/24/22 14:29 HIV 1&2 Antibody Non-reactive (Non-Reactiv) 08/24/22 14:29 Influenza Type A Ag negative (Negative) 08/22/22 22:46 Influenza Type B Ag negative (Negative) 08/22/22 22:46 SARS-CoV-2 Ag (Rapid) Negative (Negative) 08/22/22 22:46 TB (QFT) Gold In Tube Negative (NEGATIVE) 08/24/22 14:29 TB Test (QFT) Nil 0.06 IU/mL 08/24/22 14:29 TB Test (QFT) Mitogen 5.26 IU/mL 08/24/22 14:29 TB Test Mitogen - Nil 0.01 IU/mL 08/24/22 14:29 TB Test TB -Nil 0.00 IU/mL 08/24/22 14:29 Beta-(1,3)-D-Glucan Cancelled 08/23/22 11:00 B-(1,3)-D-Glucan Intrp Cancelled 08/23/22 11:00 Vitals Last Vital Signs Temp 98.2 F 08/28/22 11:48 Pulse 80 08/28/22 11:48 Resp 16 08/28/22 11:48 BP 160/84 08/28/22 11:48 Pulse Ox 92 08/28/22 11:48 O2 Del Method 08/28/22 11:48 O2 Flow Rate 3 08/28/22 11:06 Discharge Plan Discharge Patient Disposition: Home Condition: Stable Prescriptions: New cefdinir 300 mg capsule 300 mg PO BID 10 Days Qty: 20 0RF doxycycline monohydrate 100 mg capsule 100 mg PO BID Qty: 14 0RF oxycodone 10 mg tablet 10 mg PO Q6H PRN (Reason: pain) Qty: 20 0RF Continued nitroglycerin 0.4 mg tablet, sublingual 0.4 mg sublingual Q5M PRN (Reason: chest pain) Qty: 30 6RF Rx Instructions: do not exceed 3 doses per episode pantoprazole 40 mg tablet,delayed release (DR/EC) 40 mg PO DAILY Qty: 30 4RF Rx Instructions: An Appt and labs will need to be done before any further refills. carvedilol 25 mg tablet 25 mg PO BID Qty: 60 4RF Rx Instructions: AT 0800, 2000 methotrexate sodium 2.5 mg tablet 20 mg PO .Q7days Qty: 40 3RF Rx Instructions: Sundays fluoxetine [Prozac] 20 mg capsule 20 mg PO DAILY (DME) Nebulizer machine See Rx Instructions .Route .MEDSUPPLY Qty: 1 0RF Rx Instructions: As directed levothyroxine 100 mcg tablet 100 mcg PO DAILY Qty: 90 0RF hydroxyzine HCl 25 mg tablet 25 mg PO QID PRN (Reason: anxiety) Qty: 120 1RF Rx Instructions: take also for itching furosemide [Lasix] 20 mg tablet 20 mg PO DAILY Qty: 30 1RF Rx Instructions: AT 0800 clonidine HCl 0.1 mg tablet 0.1 mg PO DAILY PRN (Reason: hypertensive emergency) Qty: 90 1RF triamcinolone acetonide 0.1 % ointment See Rx Instructions .ROUTE .COMPLEX Qty: 30 3RF Dose Instruction: APPLY TO AFFECTED AREA TWO TIMES DAILY NEEDED Rx Instructions: APPLY TO AFFECTED AREA TWO TIMES DAILY NEEDED potassium chloride 10 mEq tablet extended release 10 meq PO DAILY Qty: 90 2RF cholecalciferol (vitamin D3) 50 mcg (2,000 unit) tablet 2,000 unit PO DAILY Qty: 30 0RF Rx Instructions: AT 0800 verapamil 180 mg capsule,ext rel. pellets 24 hr 180 mg PO DAILY Qty: 90 1RF Trelegy Ellipta 100-62.5-25 mcg Blister With Device 1 inh INHALATION DAILY atorvastatin 40 mg tablet 40 mg PO QPM vitamin E 268 mg (400 unit) Capsule 268 mg PO DAILY vitamin I42-ijiqx acid 2,500-400 mcg Tablet,Disintegrating 1 tab PO DAILY prednisone 20 mg Tablet 20 mg PO DAILY 30 Days Qty: 30 0RF folic acid 1 mg Tablet 1 mg PO DAILY clopidogrel 75 mg tablet 75 mg PO DAILY albuterol sulfate 90 mcg/actuation HFA aerosol inhaler 2 inh inhalation Q8H PRN (Reason: shortness of breath or wheezing) Qty: 8.5 3RF albuterol sulfate 1.25 mg/3 mL solution for nebulization 1.25 mg inhalation Q8H PRN (Reason: shortness of breath or wheezing) Qty: 75 1RF Discontinued oxycodone-acetaminophen 10-325 mg tablet 1 tab PO Q8H PRN (Reason: Pain) Discharge Orders: Discharge Order (Routine); Ordered 08/28/22 Ordered By: Pedro Rueda Referrals: Afia Barrett NP [Primary Care Provider] - 09/13/22 10:00 am Datar,Trae Simental MD [Physician] - 09/25/22 8:45 am Patient Instructions: Doxycycline (By mouth), Oxycodone/Acetaminophen (By mouth), Cefdinir (By mouth), Using Oxygen at Home (GEN), Hypoxia (GEN), Pneumonia (GEN), Opioid Safety Discharge Attestations Time Spent in Discharge Care*: greater than 30 min Quality Metrics Clinical Quality Measures [ No reported AMI, CVA or VTE this stay] Coding Level of Care Code Acute Chg FW DC note Diagnoses Community acquired pneumonia J18.9 Acute respiratory failure with hypoxia J96.01 Facial swelling R22.0 Compression fracture High risk medication use Z79.899 Depression with anxiety F41.8 Intermittent palpitations R00.2 Seronegative rheumatoid arthritis M06.00 Polyarticular psoriatic arthritis L40.59
[2022-08-28 15:00] LABS: Blastomyces Antigen Interpret NEGATIVE; Blastomyces Antigen Result NONE DETECTED
[2022-08-29 18:35] LABS: Fungitell 1-3-B Glucan Assay <31 pg/mL; Interpretation NEGATIVE
[2022-08-30 10:49] LABS: P. Jirovecii DNA QL PCR NOT DETECTED
[2022-08-30 19:14] LABS: Aspergillus AG,EIA,Serum NOT DETECTED; Aspergillus Galactomannan Inde <0.50
== END 2022-08-28 16:34 | disposition home or self-care (01) | DRG 871 ==
LOC: ER 22:44 → MEDSURG 22:47
PROVIDERS: Family Medicine; Admitting Provider Internal Medicine; Emergency Provider Emergency Medicine; PCP Nurse Practitioner Family; Visit Provider Internal Medicine
DX: A41.9 Sepsis, unspecified organism (principal); J13 Pneumonia due to Streptococcus pneumoniae; J96.21 Acute and chronic respiratory failure with hypoxia; J44.0 Chronic obstructive pulmonary disease with (acute) lower respiratory infection; J44.1 Chronic obstructive pulmonary disease with (acute) exacerbation; D84.821 Immunodeficiency due to drugs; F41.8 Other specified anxiety disorders; M06.00 Rheumatoid arthritis without rheumatoid factor, unspecified site; L40.50 Arthropathic psoriasis, unspecified; E89.0 Postprocedural hypothyroidism; F17.210 Nicotine dependence, cigarettes, uncomplicated; I25.10 Atherosclerotic heart disease of native coronary artery without angina pectoris; I10 Essential (primary) hypertension; Z86.16 Personal history of COVID-19; Z93.0 Tracheostomy status; Z79.52 Long term (current) use of systemic steroids; Z79.02 Long term (current) use of antithrombotics/antiplatelets; Z79.51 Long term (current) use of inhaled steroids; E78.5 Hyperlipidemia, unspecified; M79.7 Fibromyalgia; K21.9 Gastro-esophageal reflux disease without esophagitis; I35.1 Nonrheumatic aortic (valve) insufficiency; R91.8 Other nonspecific abnormal finding of lung field
CPT/HCPCS: 36415; 71045; 71250; 80048; 80053; 80202; 83605; 83615; 83735; 83880; 84100; 84145; 84484; 85025; 85378; 86140; 86403; 86480; 87040; 87070; 87077; 87102; 87186; 87205; 87206; 87305; 87385; 87426; 87449; 87641; 87798; 87804; 87806; 93005; 94640; 94664; 94760; 96372; J0456; J0692; J0696; J1644; J1650; J1940; J2270; J2405; J2920; J2930; J3370; J7030; J7050; J7512; J7626

== ENCOUNTER → 2022-09-10 11:23 | Outpatient (BNVA) | payer MEDICARE, MEDICAID, SELFPAY | PROVIDERS: PCP Nurse Practitioner Family; Visit Provider Internal Medicine Rheumatology | DX: M06.00 Rheumatoid arthritis without rheumatoid factor, unspecified site (principal); Z71.89 Other specified counseling; Z79.899 Other long term (current) drug therapy; J18.9 Pneumonia, unspecified organism; R21 Rash and other nonspecific skin eruption; F17.210 Nicotine dependence, cigarettes, uncomplicated | CPT/HCPCS: 72100; 72170; 99214 ==

== ENCOUNTER → 2022-10-10 15:30 | Outpatient (BNVA) | payer MEDICARE, MEDICAID, SELFPAY | PROVIDERS: PCP Nurse Practitioner Family; Visit Provider Internal Medicine Cardiovascular Disease | DX: R06.00 Dyspnea, unspecified (principal); I10 Essential (primary) hypertension; I25.10 Atherosclerotic heart disease of native coronary artery without angina pectoris; R07.9 Chest pain, unspecified; E78.2 Mixed hyperlipidemia; F17.210 Nicotine dependence, cigarettes, uncomplicated | CPT/HCPCS: 99214; Q3014 ==

== ENCOUNTER → 2022-10-16 13:43 | Outpatient (BNVA) | payer MEDICARE, MEDICAID, SELFPAY | PROVIDERS: PCP Nurse Practitioner Family; Visit Provider Internal Medicine Pulmonary Disease | DX: R93.89 Abnormal findings on diagnostic imaging of other specified body structures (principal); R06.00 Dyspnea, unspecified; J44.9 Chronic obstructive pulmonary disease, unspecified; I25.10 Atherosclerotic heart disease of native coronary artery without angina pectoris; U09.9 Post COVID-19 condition, unspecified; F17.210 Nicotine dependence, cigarettes, uncomplicated; Z79.52 Long term (current) use of systemic steroids; R60.9 Edema, unspecified | CPT/HCPCS: 99214 ==

== ENCOUNTER → 2022-10-31 13:42 | Outpatient (BNVA) | payer MEDICARE, MEDICAID, SELFPAY | PROVIDERS: PCP Nurse Practitioner Family; Visit Provider Internal Medicine Cardiovascular Disease | DX: I10 Essential (primary) hypertension (principal); I25.10 Atherosclerotic heart disease of native coronary artery without angina pectoris | CPT/HCPCS: 80048; 83880 ==

== ENCOUNTER 2022-11-07 14:54 | Outpatient (CLI) | payer MEDICARE, MEDICAID, SELFPAY ==
--- NOTE | 2022-11-07 15:00 | CT_ITS ---
WS: [id number] CT CHEST TECHNIQUE: Noncontrast CT of the chest with coronal and sagittal reformatted images. CLINICAL INFORMATION: check for resolution of august pneumonia COMPARISON: CT chest August 24, 2022 DLP: 522.[address] scans at [facility] use at least one of these dose optimization techniques: automated e xposure control; mA and/or kV adjustment per patient size (includes targeted exams where dose is matc hed to clinical indication); or iterative reconstruction. FINDINGS: Previously described RIGHT upper lobe and RIGHT lower lobe pneumonia has resolved compared to previou s. Slight subsegmental atelectasis in the RIGHT lower lobe. No focal pneumonia or pleural fluid. Slig htly ectatic ascending thoracic aorta measuring 3.7 CM. Aortic calcification. Coronary calcification. Normal caliber descending thoracic aorta. No mediastinal or hilar lymphadenopathy. No axillary lymph adenopathy. Adrenal glands are normal. Incidental RIGHT hepatic cyst measuring 1.7 CM. Cholecystectomy clips. Adr enal glands are normal. Small esophageal hiatal hernia. Chronic compression fractures in the T6 and T 7 unchanged. New mild compression of the superior endplates at T4 and T5 has developed since August 24, 2022. No retropulsion. CT/CT chest wo con [id number] IMPRESSION: 1. Previously described RIGHT lung pulmonary infiltrates have resolved. No new infiltrates today. 2. No mediastinal or hilar lymphadenopathy. 3. New mild compression superior endplates at T4 and T5 are new from previous. 4. Stable mild compression fracture superior endplate T6 and T7 unchanged.
== END 2022-11-07 14:55 | disposition home or self-care (01) ==
PROVIDERS: PCP Nurse Practitioner Family; Visit Provider Internal Medicine Pulmonary Disease
DX: J90 Pleural effusion, not elsewhere classified (principal)
CPT/HCPCS: 71250

== ENCOUNTER 2022-11-29 06:09 | Outpatient (CLI) | payer MEDICARE, MEDICAID, SELFPAY ==
--- NOTE | 2022-11-29 | ECG_ITS ---
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 Interpretive Statements NAME OF STUDY: LEXISCAN SESTAMIBI STRESS TEST INDICATION: [Chest Pain, ] Procedure: At the baseline, the blood pressure was 123/67mmHg with a heart rate of 80 bpm. The electrocardiogram showed normal sinus rhythm, normal axis with normal ST and T's. The Lexiscan was infused over a period of 20 seconds. A total of 0.4 mg of Lexiscan was infused. The stress phase was continued for a total of 5 minutes. Heart rate was at the end of stress phase was 91 bpm and a blood pressure of 138/83 mmHg. The EKG at the peak infusion revealed normal sinus rhythm with no significant ST-T wave changes. Sestamibi was injected 20 seconds after the Lexiscan infusion. Blood pressure at the end of recovery phase was 115/83 mmHg with a heart rate of 89 bpm. Conclusion: 1. Normal EKG response to Lexiscan infusion 2. No Lexiscan induced chest pain or cardiac arrhythmia. 3. Normal blood pressure and heart rate response. 4. Sestamibi/sestamibi perfusion scan pending; see separate report. Electronically Signed On 12-15-2022 14:10:07 CDT by Gui Conway M.D. [id number]
[2022-11-29 06:44] VITALS: BMI 34.4
--- NOTE | 2022-11-29 06:45 | NMCV_ITS ---
NM oni perf SPECT r/s* [id number] Angie Naranjo Age: 56 Gender: F : 1965 Exam Date: 11/29/2022 07:49 Ordering Phys: Lynne Willett MD ([email or web address]) Technologist: ROMAN Mcmullen Exam Location: [facility] Indications: CHEST PAIN, SHORTNESS OF BREATH, ATHEROSCLEROTIC HEART DISEASE STRESS TEST Please [facility] IMAGE PROTOCOL Rest/Stress 1 Lexiscan Day Radiopharmaceutical Dose (mCi) Administration Site Administered by Rest: Tc-99m 10.9 IV Titus Benito, PRECISION LATHE OPERATOR Sestamibi Stress:Tc-99m 33.0 IV Titus Benito, PRECISION LATHE OPERATOR Sestamibi Rest: 29-Nov-2022 60 Discovery 630 Stress: 29-Nov-2022 30 Discovery 630 0.4mg Lexiscan. Supine position only as patient was unable to lay prone. SPECT RESULTS Technical Quality: Excellent Raw Data Analysis: Normal Image Corrections: No attenuation or motion correction applied Summed Stress Score: 0 Summed Rest Score: 0 Summed Difference Score: 0 PERFUSION FINDINGS SPECT images demonstrate homogeneous tracer distribution throughout the myocardium. FUNCTIONAL RESULTS (calculated via Gated SPECT) Stress Image LV EF (%): 78 Stress EDV (mL):92 TID: 0.92 Stress ESV (mL):20 FUNCTIONAL FINDINGS: There is normal left ventricular systolic function. IMPRESSIONS 1. Normal myocardial perfusion imaging with no evidence of ischemia 2. LV systolic function is normal Gui Conway MD (Electronically Signed) Final Date: 01 December 2022 08:43 S
[2022-11-29] MEDS: regadenoson 0.4 Mg/5 ml Syringe IVP (08:30)
[2022-11-29 08:56] VITALS: BP 115/83; PULSE 87
== END 2022-11-29 06:10 | disposition home or self-care (01) ==
LOC: CDL 06:11
PROVIDERS: PCP Nurse Practitioner Family; Visit Provider Internal Medicine Cardiovascular Disease
DX: R07.9 Chest pain, unspecified (principal)
CPT/HCPCS: 36415; 78452; 93017; 96374; A9500; J2785

== ENCOUNTER → 2022-12-19 10:22 | Outpatient (BNVA) | payer MEDICARE, MEDICAID, SELFPAY | PROVIDERS: PCP Nurse Practitioner Family; Visit Provider Internal Medicine Pulmonary Disease | DX: J44.9 Chronic obstructive pulmonary disease, unspecified (principal); I25.10 Atherosclerotic heart disease of native coronary artery without angina pectoris; F17.210 Nicotine dependence, cigarettes, uncomplicated; Z79.52 Long term (current) use of systemic steroids; Z86.16 Personal history of COVID-19 | CPT/HCPCS: 99214 ==

== ENCOUNTER → 2023-01-08 14:46 | Outpatient (BNVA) | payer MEDICARE, MEDICAID, SELFPAY | PROVIDERS: PCP Nurse Practitioner Family; Visit Provider Internal Medicine Rheumatology | DX: M06.00 Rheumatoid arthritis without rheumatoid factor, unspecified site (principal); Z79.899 Other long term (current) drug therapy; Z71.89 Other specified counseling; L40.50 Arthropathic psoriasis, unspecified; Z71.85 Encounter for immunization safety counseling | CPT/HCPCS: 99214 ==

== ENCOUNTER → 2023-05-06 14:04 | Outpatient (BNVA) | payer MEDICARE, MEDICAID, SELFPAY | PROVIDERS: PCP Nurse Practitioner Family; Visit Provider Nurse Practitioner Family | DX: I25.10 Atherosclerotic heart disease of native coronary artery without angina pectoris (principal); I34.0 Nonrheumatic mitral (valve) insufficiency; I10 Essential (primary) hypertension; F17.210 Nicotine dependence, cigarettes, uncomplicated | CPT/HCPCS: 99214 ==

== ENCOUNTER 2023-05-30 09:55 | Outpatient (CLI) | payer MEDICARE, MEDICAID, SELFPAY ==
--- NOTE | 2023-05-30 11:15 | USCV_ITS ---
Angie Naranjo Age: 57 Gender: F : 1965 Exam Date: 05/30/2023 10:37 Ordering Phys: Kristal Lopez Technologist: BEATRIZ Exam Location: [facility] [place] Indication: MR BP: 118 / 64 HR: 58 Rhythm: Sinus Technical Quality: Suboptimal MEASUREMENTS (Male / Female) Normal Values 2D ECHO LVOT Diameter 2.0 cm LV Ejection Fraction MOD 2C 52.0 % LV Ejection Fraction 2C AL 51.2 % LA Diameter 2.8 cm LA Width 3.1 cm LA Height 5.5 cm RA Width 2.9 cm RA Height 4.5 cm Aorta at Sinotubular Diameter 2.4 cm IVC Diameter 1.9 cm M-MODE Aortic Annulus Diameter 2.5 cm LA Ao Ratio MM 0.9 MV E Point Septal Separation 0.6 cm DOPPLER AV Peak Velocity 199.0 cm/s LVOT Peak Velocity 160.0 cm/s AV Area Cont Eq vti 2.2 cm squared AV Area Cont Eq pk 2.5 cm squared MV Peak Velocity 116.0 cm/s MV Area PHT 3.5 cm squared Mitral E to A Ratio 1.0 MV E' Velocity 53.0 cm/s Mitral E to MV E' Ratio 12.0 Mitral E to LV E' Lateral Ratio 11.4 Mitral E to LV E' Septal Ratio 12.8 TR Peak Velocity 230.2 cm/s TR Peak Gradient 21.2 mmHg TR Mean Velocity 186.4 cm/s TR Mean Gradient 15.3 mmHg TR Velocity Time Integral 64.7 cm TV Peak E Velocity 70.0 cm/s Right Atrial Pressure 3.0 mmHg Pulmonary Artery Systolic Pressu 24.2 mmHg PV Peak Velocity 129.0 cm/s RV Acceleration Time 0.1 s RV Ejection Time 0.3 s RV AcT/ET 0.3 FINDINGS Left Ventricle Normal left ventricular size and systolic function, EF 57 %. No regional wall motion abnormalities. Right Ventricle The right ventricle is normal in size and function. Right Atrium The right atrium is normal in size. Left Atrium The left atrium is normal in size. Mitral Valve Trace mitral valve regurgitation. Aortic Valve Moderate aortic valve regurgitation. Tricuspid Valve Trace tricuspid valve regurgitation. Pulmonic Valve No gross abnormalities noted Pericardium Normal pericardium without effusion. Aorta Normal ascending aorta dimension. IVC The inferior vena cava appears normal. CONCLUSIONS Normal left ventricular size and systolic function, EF 57 %. Moderate aortic valve regurgitation. Trace tricuspid valve regurgitation. No regional wall motion abnormalities. Estimated pulmonary artery peak systolic pressure 24 mmHg There is no pericardial effusion. There are no intracardiac masses. Compared to the study from 01/20/2022, there may not be a significant change Dr Nery Mann MD [facility] (Electronically Signed) Final Date: 30 May 2023 17:57 S
== END 2023-05-30 09:56 | disposition home or self-care (01) ==
LOC: RAD 09:55
PROVIDERS: PCP Nurse Practitioner Family; Visit Provider Nurse Practitioner Family
DX: I08.2 Rheumatic disorders of both aortic and tricuspid valves (principal)
CPT/HCPCS: 93306

== ENCOUNTER → 2023-06-23 12:28 | Outpatient (BNVA) | payer MEDICARE, MEDICAID, SELFPAY | PROVIDERS: PCP Nurse Practitioner Family; Visit Provider Internal Medicine Pulmonary Disease | DX: R06.00 Dyspnea, unspecified (principal); J44.9 Chronic obstructive pulmonary disease, unspecified; I25.10 Atherosclerotic heart disease of native coronary artery without angina pectoris; F17.210 Nicotine dependence, cigarettes, uncomplicated; Z79.52 Long term (current) use of systemic steroids; R22.0 Localized swelling, mass and lump, head; Z12.2 Encounter for screening for malignant neoplasm of respiratory organs | CPT/HCPCS: 99214 ==

== ENCOUNTER → 2023-07-01 13:54 | Outpatient (BNVA) | payer MEDICARE, MEDICAID, SELFPAY | PROVIDERS: PCP Nurse Practitioner Family; Referring Provider Nurse Practitioner Family; Visit Provider Surgery | DX: R13.10 Dysphagia, unspecified (principal); K21.9 Gastro-esophageal reflux disease without esophagitis; Z12.11 Encounter for screening for malignant neoplasm of colon | CPT/HCPCS: 99024; 99204 ==

== ENCOUNTER 2023-07-10 10:40 | Emergency (ER) | payer MEDICARE, MEDICAID, SELFPAY ==
[2023-07-10 10:41] VITALS: BP 121/84; PULSE 79; TEMP 36.8; O2SAT 93; BMI 33.3
--- NOTE | 2023-07-10 10:42 | ECG_ITS ---
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 Measurements Intervals [place] Rate: 68 P: 51 ND: 175 QRS: -11 QRSD: 88 T: 41 QT: 417 QTc: 444 Interpretive Statements SINUS RHYTHM POSSIBLE LEFT ATRIAL ENLARGEMENT [-0.1mV P-WAVE IN V1/V2] LOW QRS VOLTAGE IN PRECORDIAL LEADS [QRS DEFLECTION < 1.0 mV IN CHEST LEADS] POSSIBLE ANTERIOR MYOCARDIAL INFARCTION , PROBABLY OLD [30 ms Q WAVE IN V3/V4, OR R < 0.2 mV IN V4] Compared to ECG 08/23/2022 14:47:47 No significant changes Electronically Signed On 07-10-2023 11:23:12 CDT by Gui Conway M.D. [email or web address]
--- NOTE | 2023-07-10 10:42 | XRR_ITS ---
PROCEDURE INFORMATION: Exam: XR Chest Exam date and time: 07/10/2023 10:59 AM Age: 57 years old Clinical indication: Cough and dyspnea; Additional info: Dyspnea/cough TECHNIQUE: Imaging protocol: Radiologic exam of the chest. Views: 1 view. COMPARISON: CT chest con [id number] 11/07/2022 3:02 PM FINDINGS: Lungs: There is linear atelectasis at the lung bases, left greater than right. Pleural spaces: Unremarkable. No pleural effusion. No pneumothorax. Heart/Mediastinum: Unremarkable. No cardiomegaly. Bones/joints: Unremarkable. XR/XR chest 1V portable [id number] IMPRESSION: Basilar atelectasis.
[2023-07-10 10:49] VITALS: PULSE 70; RESP 22; O2SAT 97
[2023-07-10] MEDS: ipratropium-albuterol 3 mL Neb INHALATION (10:49)
--- NOTE | 2023-07-10 10:49 | ED_ITS ---
HPI - SOB/Dyspnea General: Chief Complaint: Shortness of Breath/Dyspnea Stated Complaint: sob Time Seen by Provider: 07/10/23 10:41 Source: patient Mode of arrival: EMS History of Present Illness: HPI Narrative: 57-year-old female presents emergency room via EMS with complaints of pain with inspiration. She has a history of COPD is chronically on steroids she is complaining of pain around her back and into her ribs when she takes a deep breath she has a normal baseline productive cough she maintaining her oxygen sats on her usual 3 L/min. No specific chest discomfort reports a spasm like biting pain from time to time in her mid back worse when she takes a deep breath. MD elicited complaint: pain with inspiration Pertinent past history: COPD Onset (ago): day(s) Timing: intermittent Severity: moderate Exacerbating factors: inspiration Relieving factors: nothing Associated symptoms: Reports cough (Chronic baseline unchanged); Deny abdominal pain, chest congestion, chest pain, diaphoresis, dizziness, extremity pain, fever(s), hemoptysis, lightheadedness, myalgias, nausea, orthopnea, palpitations, paresthesias, polydipsia, polyuria, rash, sense of impending doom, syncope or vomiting Review of Systems Const: Denies: fever(s), chills or diaphoresis Card: Denies: chest pain, palpitations, lightheadedness, syncope or orthopnea Resp: Denies: dyspnea, hemoptysis or chest congestion GI: Denies: abdominal pain, nausea or vomiting : Denies: dysuria, urinary frequency or urinary urgency Musc: Denies: neck pain, back pain or extremity pain Skin/Breast: Denies: rash Neuro: Denies: dizziness Endo: Denies: polyuria or polydipsia PFSH ED PFSH: Medical History Acute respiratory failure with hypoxia Anxiety Aortic regurgitation Bereavement counseling Community acquired pneumonia Compression fracture Depression with anxiety Eczema Essential (primary) hypertension Facial swelling Fibromyalgia GERD without esophagitis High risk medication use Hyperlipidemia Hypothyroidism Immunization counseling Inflammatory arthritis Intermittent palpitations Ischemic stroke Pneumonia Polyarticular psoriatic arthritis Psoriatic arthritis Respiratory failure Seronegative rheumatoid arthritis Surgical History H/O breast biopsy H/O esophagogastroduodenoscopy (11/07/20) H/O thyroidectomy History of tonsillectomy Hx of cholecystectomy Status post colonoscopy (11/07/20) Family History Mother Rheumatoid arthritis Father Rheumatoid arthritis Leukemia Denies family history of Lupus Social History Smoking and tobacco/nicotine status: current every day tobacco/nicotine user cigarettes Packs smoked per day: 0.25 Years cigarettes smoked: 25 [ Other cigarette details: 2ppd x 25 years, currently trying to quit] Second hand smoke exposure: Yes Alcohol intake: never Substance/Drug Use: never Marital status: Current occupational status: disabled Current gender identity: Female Physical Exam Const: GENERAL APPEARANCE: cooperative ORIENTATION/CONSCIOUSNESS: Yes a wake, Yes oriented to person, Yes oriented to place and Yes oriented to time HENMT: COMMON NORMALS: normocephalic, atraumatic and hearing grossly normal bilaterally HEAD & SCALP: normocephalic and atraumatic Resp: COMMON NORMALS: normal respiratory effort, No retractions and No use of accessory muscles AUSCULTATION: rhonchi and wheezes Cardio: COMMON NORMALS: regular rate, regular rhythm and No murmurs present (Cardio) RATE: regular rate RHYTHM: regular rhythm GI: COMMON NORMALS: Soft to palpation and No hepatosplenomegaly present AUSCULTATION: Yes normoactive bowel sounds PALPATION: Yes Soft to palpation, No Tenderness to palpation present (GI), No Guarding due to palpation present (GI) and Yes No hepatosplenomegaly present : COMMON NORMALS: Yes no CVA tenderness BLADDER/KIDNEY EXAM: Yes no CVA tenderness Back/Pelvis: COMMON NORMALS: no CVA tenderness Extremity: COMMON NORMALS: normal to inspection, capillary refill normal, no clubbing, cyanosis or edema, no calf tenderness and no pedal edema Neuro: SENSORIUM/ORIENTATION: Yes oriented to person, Yes oriented to place and Yes oriented to time Skin: COMMON NORMALS: no rashes or lesions noted GENERAL SKIN EXAM: no rashes or lesions noted Course Vital Signs: Vital signs: Vital Signs Temperature 98.3 F 07/10/23 10:41 Pulse Rate 66 07/10/23 12:46 Respiratory Rate 16 07/10/23 12:46 Blood Pressure 130/70 07/10/23 12:46 Pulse Oximetry 97 07/10/23 12:46 Oxygen Delivery Me thod Nasal Cannula 07/10/23 10:49 Oxygen Flow Rate 3 07/10/23 10:49 MDM - SOB/Dyspnea Medical Decision Making Multiple vertebral compression fractures and new endplate fracture at T8 which I suspect is the cause of her symptoms. Her lungs actually sound relatively good she has some wheezing but is mild and her saturations are well-maintained on her usual 3 L by nasal cannula. I think her symptoms are primarily from pain at the 8 thoracic vertebrae when she takes a deep breath will discharge home with pain medications and have her follow-up with Dr. Jennings. Leukocytosis however patient is chronically on steroids which I think accounts for this. Medical Records I reviewed the patient's medical records. Lab Data I reviewed the patient's lab results. 07/10/23 10:55 07/10/23 10:55 Labs/Radiology: Radiology Impressions Chest X-Ray 07/10/23 10:42 IMPRESSION: Basilar atelectasis. Laboratory Results WBC 15.21 10^3/uL (3.29-11.43) H 07/10/23 10:55 RBC 4.56 10^6/uL (3.85-5.65) 07/10/23 10:55 Hgb 14.30 g/dL (11.27-16.99) 07/10/23 10:55 Hct 46.4 % (36-47) 07/10/23 10:55 MCV 101.8 fl (85-98) H 07/10/23 10:55 MCH 31.4 pg (27-33) 07/10/23 10:55 MCHC 30.8 g/dL (30-55) 07/10/23 10:55 RDW 15.9 % (12.1-15.1) H 07/10/23 10:55 Plt Count 266 10^3/cmm (157-399) 07/10/23 10:55 MPV 10.1 fL (7.4-10.4) 07/10/23 10:55 Neut % (Auto) 81.2 % 07/10/23 10:55 Lymph % (Auto) 8.1 % 07/10/23 10:55 [place] % (Auto) 8.0 % 07/10/23 10:55 Eos % (Auto) 1.4 % 07/10/23 10:55 Baso % (Auto) 0.3 % 07/10/23 10:55 Neut # (Auto) 12.36 10^3/uL (1.8-7.7) H 07/10/23 10:55 Lymph # (Auto) 1.2 10^3/uL (0.8-4.8) 07/10/23 10:55 [place] # (Auto) 1.2 10^3/uL (0.2-0.9) H 07/10/23 10:55 Eos # (Auto) 0.2 10^3/uL (0.0-0.8) 07/10/23 10:55 Baso # (Auto) 0.0 10^3/uL (0.0-0.1) 07/10/23 10:55 Nucleated RBC % (auto) 0 % 07/10/23 10:55 Nucleated RBCs # 0.0 /100WBC 07/10/23 10:55 Sodium 140 mmol/L (136-145) 07/10/23 10:55 Potassium 3.9 mmol/L (3.5-5.1) 07/10/23 10:55 Chloride 99 mmol/L (98-107) 07/10/23 10:55 Carbon Dioxide 32 mmol/L (22-29) H 07/10/23 10:55 Anion Gap 12.9 (5-19) 07/10/23 10:55 BUN 5 mg/dL (6-20) L 07/10/23 10:55 Creatinine 0.8 mg/dL (0.5-0.9) 07/10/23 10:55 GFR Calculation 73.4 mL/min (90-130) L 07/10/23 10:55 Glucose 117 mg/dL (65-115) H 07/10/23 10:55 Calculated Osmolality 288 mOsm/kg (285-295) 07/10/23 10:55 Calcium 9.5 mg/dL (8.5-10.5) 07/10/23 10:55 Total Bilirubin 0.5 mg/dL (0.15-1.2) 07/10/23 10:55 AST 13 U/L (0-32) 07/10/23 10:55 ALT 15 U/L (0-33) 07/10/23 10:55 Alkaline Phosphatase 89 U/L (35-105) 07/10/23 10:55 Troponin T Baseline 11 ng/L (0-10) H 07/10/23 10:55 Total Protein 6.9 g/dL (6.6-8.7) 07/10/23 10:55 Albumin 4.3 g/dL (3.5-5.2) 07/10/23 10:55 Globulin 2.6 g/dL (1.3-4.6) 07/10/23 10:55 All radiology interpretation(s) finalized by discharge Discharge Plan Discharge Patient Disposition: Home Clinical Impression: COPD (chronic obstructive pulmonary disease), Compression fracture of thoracic vertebra Condition: Stable Prescriptions: New hydrocodone-acetaminophen 5-325 mg tablet 1 tab PO Q6H PRN (Reason: pain) Qty: 20 0RF No Action carvedilol 25 mg tablet 25 mg PO BID Qty: 60 4RF Rx Instructions: AT 0800, 2000 morphine 15 mg tablet 7.5 mg PO TID PRN cyclobenzaprine 10 mg tablet 10 mg PO BID topiramate 25 mg tablet 25 mg PO BID potassium chloride 20 mEq tablet extended release 20 meq PO .COMPLEX Qty: 45 3RF Rx Instructions: 20 mEq orally Take 20 meq and 40 meq on alternate days with lasix; fluoxetine [Prozac] 20 mg capsule 20 mg PO DAILY guaifenesin 600 mg tablet extended release 12hr 600 mg PO BID furosemide [Lasix] 20 mg tablet 20 mg PO DIRECTED Rx Instructions: Take 20 mg and 40 mg on alternate days nitroglycerin 0.4 mg tablet, sublingual 0.4 mg sublingual Q5M PRN (Reason: chest pain) Qty: 30 6RF Rx Instructions: do not exceed 3 doses per episode isosorbide mononitrate 30 mg tablet extended release 24 hr 30 mg PO BID Qty: 90 1RF folic acid 1 mg tablet 1 mg PO DAILY Qty: 30 5RF methotrexate sodium 2.5 mg tablet 20 mg PO .Q7days Qty: 40 3RF Rx Instructions: pt is aware to hold for two weeks before restarting after inffection is gone prednisone 10 mg tablet See Rx Instructions .ROUTE .COMPLEX Qty: 30 4RF Dose Instruction: TAKE 1 TABLET BY MOUTH EVERY DAY FOR JOINT PAIN Rx Instructions: TAKE 1 TABLET BY MOUTH EVERY DAY FOR JOINT PAIN pantoprazole [Protonix] 40 mg tablet,delayed release (DR/EC) 40 mg PO BID 42 Days Qty: 84 0RF (DME) Nebulizer machine See Rx Instructions .Route .MEDSUPPLY Qty: 1 0RF Rx Instructions: As directed levothyroxine 100 mcg tablet 100 mcg PO DAILY Qty: 90 0RF hydroxyzine HCl 25 mg tablet 25 mg PO QID PRN (Reason: anxiety) Qty: 120 1RF Rx Instructions: take also for itching clonidine HCl 0.1 mg tablet 0.1 mg PO DAILY PRN (Reason: hypertensive emergency) Qty: 90 1RF triamcinolone acetonide 0.1 % ointment See Rx Instructions .ROUTE .COMPLEX Qty: 30 3RF Dose Instruction: APPLY TO AFFECTED AREA TWO TIMES DAILY NEEDED Rx Instructions: APPLY TO AFFECTED AREA TWO TIMES DAILY NEEDED cholecalciferol (vitamin D3) 50 mcg (2,000 unit) tablet 2,000 unit PO DAILY Qty: 30 0RF Rx Instructions: AT 0800 potassium chloride 10 mEq tablet extended release See Rx Instructions .ROUTE .COMPLEX Qty: 90 2RF Dose Instruction: TAKE 1 TABLET BY MOUTH EVERY DAY AT 9AM Rx Instructions: TAKE 1 TABLET BY MOUTH EVERY DAY AT 9AM verapamil 180 mg capsule,ext rel. pellets 24 hr 180 mg PO DAILY Qty: 90 1RF Trelegy Ellipta 100-62.5-25 mcg blister with device 1 inh INHALATION DAILY Qty: 60 3RF Cosentyx Pen 150 mg/mL pen injector See Rx Instructions SUBCUT .COMPLEX Qty: 5 0RF Rx Instructions: Loading dose of 150mg SQ at week 0,1,2,3,4, then will be 300mg Q4 weeks SUBCUT; Cosentyx Pen (2 Pens) 150 mg/mL pen injector 300 mg SUBCUT .N5tkgxy Qty: 2 3RF atorvastatin 40 mg tablet 40 mg PO QPM vitamin E 268 mg (400 unit) Capsule 268 mg PO DAILY clopidogrel 75 mg tablet 75 mg PO DAILY albuterol sulfate 90 mcg/actuation HFA aerosol inhaler 2 inh inhalation Q8H PRN (Reason: shortness of breath or wheezing) Qty: 8.5 3RF albuterol sulfate 1.25 mg/3 mL solution for nebulization 1.25 mg inhalation Q8H PRN (Reason: shortness of breath or wheezing) Qty: 75 1RF Discharge Orders: Discharge ED (Routine); Ordered 07/10/23 Ordered By: Quinton Price Referrals: Afia Barrett NP [Primary Care Provider] - Discharge Diet: Usual diet Discharge Activity: Increase activity as tolerated Patient Instructions: Opioid Safety, Pain Management Activity Restrictions/Additional Instructions: ED discharge You are seen today for pain with inspiration you are found to have a thoracic compression fracture. Use the pain medicines prescribed as needed. is manager will make arrangements for you to follow-up with Dr. 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
[2023-07-10 11:07] LABS: Basophils % 0.3 %; Eosinophils # 0.2 10^3/uL (0.0-0.8); Eosinophils % 1.4 %; Hematocrit 46.4 % (36-47); Lymphocytes # 1.2 10^3/uL (0.8-4.8); Lymphocytes % 8.1 %; Mean Corpuscular HGB Conc 30.8 g/dL (30-55); Mean Corpuscular Hemoglobin 31.4 pg (27-33); Mean Corpuscular Volume 101.8 fl (85-98); Mean Platelet Volume 10.1 fL (7.4-10.4); Monocytes # 1.2 10^3/uL (0.2-0.9); Neutrophils # 12.36 10^3/uL (1.8-7.7); Neutrophils % 81.2 %; Nucleated Red Blood Cells % 0 %; Platelet Count 266 10^3/cmm (157-399); Red Blood Count 4.56 10^6/uL (3.85-5.65); Red Cell Distribution Width 15.9 % (12.1-15.1); White Blood Count 15.21 10^3/uL (3.29-11.43)
[2023-07-10 11:13] VITALS: PULSE 64
--- NOTE | 2023-07-10 11:23 | CT_ITS ---
WS: [id number] CT LUMBAR SPINE TECHNIQUE: Noncontrast CT of the lumbar spine with coronal and sagittal reformatted images. CLINICAL INFORMATION: pain/compression fracture COMPARISON: None. DLP: 1494.[address] scans at [facility] use at least one of these dose optimization techniques: automated e xposure control; mA and/or kV adjustment per patient size (includes targeted exams where dose is matc hed to clinical indication); or iterative reconstruction. FINDINGS: Mild lumbar curve. No acute compression. No high-grade central canal stenosis. Mild disc bulging L4-L 5 and L5-S1. Adrenal glands are normal. L1-L2: Normal. L2-L3: Mild facet arthropathy. Spinal canal and foramen are patent. L3-L4: Mild annular bulging. Spinal canal and foramen are patent. Mild facet arthropathy. L4-L5: Small LEFT foraminal protrusion with mild LEFT foraminal narrowing. Mild facet arthropathy. L5-S1: Mild annular bulging. Mild bilateral foraminal narrowing. Mild facet arthropathy. Visualized pelvic bony structures: Normal. Paravertebral soft tissues: Normal. 2.1 cm LEFT renal cyst. IMPRESSION: No acute lumbar spine compression fractures
--- NOTE | 2023-07-10 11:23 | CT_ITS ---
WS: [id number] CT THORACIC SPINE TECHNIQUE: Noncontrast CT of the thoracic spine with coronal and sagittal reformatted images. CLINICAL INFORMATION: pain/compression fx COMPARISON: None. DLP: 1494.[address] scans at [facility] use at least one of these dose optimization techniques: automated e xposure control; mA and/or kV adjustment per patient size (includes targeted exams where dose is matc hed to clinical indication); or iterative reconstruction. FINDINGS: Mild thoracic curve. Mild thoracic kyphosis. Compression superior endplates T4 T5 T6 and T7 similar t o prior CT 11/07/2022. This is worse at T7 with loss of approximately 50% vertebral body height at this level. This appears unchanged compared to 11/07/2022. Small fracture clefts the superior endplates at these levels. No significant retropulsion. New slight compression fracture involving the super endplate T8. No retropulsion. No other compressio n fractures. IMPRESSION: 1. Stable mild compression fractures T4-T7 worse at T7. These are unchanged since 11/07/2022. No retro pulsion. 2. New tiny amount of compression superior endplate at T8. No retropulsion. 3. No significant central canal stenosis.
[2023-07-10 11:28] LABS: Alanine Aminotransferase 15 U/L (0-33); Albumin Level 4.3 g/dL (3.5-5.2); Alkaline Phosphatase 89 U/L (35-105); Anion Gap 12.9 (5-19); Aspartate Amino Transferase 13 U/L (0-32); Blood Urea Nitrogen 5 mg/dL (6-20); Calcium 9.5 mg/dL (8.5-10.5); Carbon Dioxide 32 mmol/L (22-29); Chloride 99 mmol/L (98-107); Globulin 2.6 g/dL (1.3-4.6); Glomerular Filtration Rate 73.4 mL/min (90-130); Glucose 117 mg/dL (65-115); Osmolality Calculated 288 mOsm/kg (285-295); Potassium 3.9 mmol/L (3.5-5.1); Sodium 140 mmol/L (136-145); Total Bilirubin 0.5 mg/dL (0.15-1.2); Total Protein 6.9 g/dL (6.6-8.7)
[2023-07-10] MEDS: dexamethasone 10 mg/mL INJ IM (11:28)
[2023-07-10 11:30] LABS: Troponin(5th) Baseline 11 ng/L (0-10)
[2023-07-10] MEDS: orphenadrine 30 mg/mL Inj 2 mL 60 MG IVP (11:48)
[2023-07-10 11:53] VITALS: BP 136/77; PULSE 64; RESP 20; O2SAT 96
--- NOTE | 2023-07-10 12:16 | DCPLANNER ---
Referral was sent to ortho on 07/10/23 at 1216. Clinic to contact patient
[2023-07-10 12:46] VITALS: BP 130/70; PULSE 66; RESP 16; O2SAT 97
[2023-07-13 12:22] LABS: ABG PCO2 43.8 mmHg (35-45); ABG PH Result 7.38 (7.35-7.45); Alveolar-Arterial Oxygen Gradi 14.5 mmHg (5-10); Arterial Blood Gas Hematocrit 42.6 % (37-47); Base Excess ABG 0.2 mmol/L (-2.0-2.0); Blood Gas Allen Test Pos; Blood Gas Operator Identificat CAK; Blood Gas Sample Site Radial, left; Blood Gas Sample Type Arterial; Carboxyhemoglobin 3.8 %THgb (0.4-20.1); HCO3 ABG 25.7 mmol/L (22-26); HGB O2 Sat 90.7 % (95-100); Ionized Calcium Level - ABG 1.3 mmol/L (1.1-1.4); Methemoglobin 0.3 % (0.4-1.5); Oxygen Device NC; Oxygen Saturation ABG 94.5; PO2 ABG 65.3 mmHg (80.0-100.0); Potassium Level - ABG 3.9 mmol/L (3.5-5.0); Total Hemoglobin 13.9 g/dL (12-16)
== END 2023-07-10 12:47 | disposition home or self-care (01) ==
PROVIDERS: Emergency Provider Family Medicine; PCP Nurse Practitioner Family
DX: J44.9 Chronic obstructive pulmonary disease, unspecified (principal); S22.060A Wedge compression fracture of T7-T8 vertebra, initial encounter for closed fracture; Z79.82 Long term (current) use of aspirin; F17.210 Nicotine dependence, cigarettes, uncomplicated; I10 Essential (primary) hypertension; E78.5 Hyperlipidemia, unspecified; Z86.73 Personal history of transient ischemic attack (TIA), and cerebral infarction without residual deficits; X58.XXXA Exposure to other specified factors, initial encounter; Z79.52 Long term (current) use of systemic steroids
CPT/HCPCS: 36600; 71045; 72128; 72131; 80051; 80053; 82330; 82805; 84484; 85025; 93005; 94640; 96372; 96374; 99285; J1100; J2360

== ENCOUNTER 2023-09-19 05:46 | Day surgery (SDC) | payer MEDICARE, MEDICAID, SELFPAY ==
[2023-09-19 06:13] VITALS: BP 123/83; PULSE 103; RESP 20; TEMP 36.1; O2SAT 93; BMI 32.9
[2023-09-19] MEDS: sodium chloride 0.9% 1,000 ML 30 ML IV (06:27)
[2023-09-19] MEDS: ipratropium-albuterol 3 mL Neb INHALATION (06:30)
--- NOTE | 2023-09-19 06:47 | ANES.PREANE2 ---
Pre-Anesthetic Assessment Height/Weight: Height 1.57 m Weight 81.647 kg Temp Pulse Resp BP Pulse Ox O2 Del Method 97 F L 103 H 20 H 123/83 93 Room Air 09/19/23 06:13 09/19/23 06:13 09/19/23 06:13 09/19/23 06:13 09/19/23 06:13 09/19/23 06:13 Preop Diagnosis: screening Operation Date: 09/19/23 07:00 Proposed Procedures p 86641 EGD with ball dilation, [address]756 Colonoscopy Z12.11,K21.9,R13.10(Not Applicable) - Joesph Ramirez DO s Colonoscopy(Not Applicable) - Joesph Ramirez DO Was Beta Roxy taken within 24 hours: Yes Was Clonidine taken within 24 hours: Yes Last intake: Intake Last Liquid Date 09/18/23 Last Liquid Time 21:30 Last Solid Date 09/17/23 Last Solid Time 20:00 Social Tobacco 1/2 ppd pack(s) per day 20 plus pack years Exam alert and oriented x 3 Airway Submandibular: within normal limits Cervical ROM: within normal limits Mallampati: Class III Dentition: false History/ROS No significant history except as noted Pulmonary Asthma and Chronic Obstructive Pulmonary Disease CV/HEM Atrial Fibrillation, Stable Angina, Congestive Heart Failure, Hypertension and Murmur None reported Hepatic None reported GI Gastroesophageal Reflux Disease Metabolic Thyroid Disease Musc/skel Lower Back Pain Neuropsych None reported Anesthetic Plan ASA status: 4 Anesthesia: MAC Risk of > 500 ml blood loss (7ml/kg in children): No Medications/Allergies Home Medications Medication Instructions Recorded Confirmed Last Taken Type carvedilol 25 mg tablet 25 mg PO BID #60 tabs 12/05/20 09/17/23 09/18/23 Rx Nebulizer machine #1 ea 12/06/20 07/01/23 09/18/23 Rx levothyroxine 100 mcg tablet 100 mcg PO DAILY #90 tabs 12/15/20 09/17/23 09/18/23 Rx hydroxyzine HCl 25 mg tablet 25 mg PO QID PRN anxiety #120 tabs 01/17/21 09/17/23 09/18/23 Rx clonidine HCl 0.1 mg tablet 0.1 mg PO DAILY PRN hypertensive 03/06/21 09/17/23 09/18/23 Rx emergency #90 tabs fluoxetine 20 mg capsule (Prozac) 20 mg PO DAILY 01/04/22 09/17/23 09/18/23 History cholecalciferol (vitamin D3) 50 2,000 unit PO DAILY #30 tabs 01/29/22 09/17/23 09/18/23 Rx mcg (2,000 unit) tablet clopidogrel 75 mg tablet 75 mg PO DAILY 02/03/22 09/17/23 09/18/23 History albuterol sulfate 1.25 mg/3 mL 1.25 mg (3 mL) inhalation Q8H PRN 02/06/22 09/17/23 09/17/23 Rx solution for nebulization shortness of breath or wheezing #75 mL albuterol sulfate 90 mcg/actuation 2 inh inhalation Q8H PRN shortness 02/06/22 09/17/23 09/17/23 Rx aerosol inhaler of breath or wheezing #8.5 grams atorvastatin 40 mg tablet 40 mg PO QPM 08/23/22 09/17/23 09/18/23 History vitamin E 268 mg (400 unit) capsule 268 mg PO DAILY 08/23/22 09/17/23 09/18/23 History cyclobenzaprine 10 mg tablet 10 mg PO BID 10/10/22 09/17/23 09/18/23 History potassium chloride 20 mEq 20 meq PO .COMPLEX #45 tabs 10/10/22 09/17/23 09/18/23 Rx tablet,extended release topiramate 25 mg tablet 25 mg PO BID 10/10/22 09/17/23 09/18/23 History guaifenesin 600 mg tablet, 600 mg PO BID 10/16/22 09/17/23 09/18/23 History extended release 12 hr fluticasone fur. 100 mcg-umeclid 1 inh inhalation DAILY #60 ea 05/05/23 09/17/23 09/18/23 Rx 62.5 mcg-vilant 25 mcg inhalat.powder (Trelegy Ellipta) verapamil 180 mg 24 hr 180 mg PO DAILY #90 caps 05/05/23 09/17/23 09/18/23 Rx capsule,extended release furosemide 20 mg tablet (Lasix) 20 mg PO DIRECTED 05/06/23 09/17/23 09/18/23 History nitroglycerin 0.4 mg sublingual 0.4 mg sublingual Q5M PRN chest 05/06/23 09/19/23 09/05/23 Rx tablet pain #30 tabs folic acid 1 mg tablet 1 mg PO DAILY #30 tabs 06/18/23 09/17/23 09/18/23 Rx methotrexate sodium 2.5 mg tablet 20 mg (8 x 2.5 mg) PO .Q7days #40 06/18/23 09/17/23 09/18/23 Rx tabs pantoprazole 40 mg tablet,delayed 40 mg PO BID 6 weeks #84 tabs 07/01/23 09/17/23 09/18/23 Rx release (Protonix) secukinumab 150 mg/mL subcutaneous 300 mg (2 mL) SUBCUT .[id number] #2 mL 07/08/23 09/17/23 09/03/23 Rx pen injector (Cosentyx Pen 300 mg/2 Pens () hydrocodone 5 mg-acetaminophen 325 1 tab PO Q6H PRN pain #20 tabs 07/10/23 09/17/23 09/18/23 Rx mg tablet isosorbide mononitrate 30 mg 30 mg PO BID 09/17/23 09/17/23 09/18/23 History tablet,extended release 24 hr prednisone 10 mg tablet 10 mg PO DAILY 09/17/23 09/17/23 09/18/23 History triamcinolone acetonide 0.1 % 1 applic topical BID PRN Rash 09/17/23 09/17/23 Unknown History topical ointment Allergies Allergy/AdvReac Type Severity Reaction Status Date / Time sertraline [From Zoloft] Allergy Unknown Unknown Verified 09/17/23 10:46 aspirin Allergy Unknown Verified 09/17/23 10:46 buspirone [From BuSpar] Allergy Unknown Verified 09/17/23 10:46 codeine Allergy Unknown Verified 09/17/23 10:46 diltiazem Allergy Unknown Verified 09/17/23 10:46 duloxetine Allergy Unknown Verified 09/17/23 10:46 gabapentin [From Neurontin] Allergy Unknown Verified 09/17/23 10:46 ibuprofen Allergy UNKNOWN Verified 09/17/23 10:46 iodine Allergy Unknown Verified 09/17/23 10:46 ketorolac [From Toradol] Allergy UNKNOWN Verified 09/17/23 10:46 lisinopril Allergy Unknown Verified 09/17/23 10:46 Penicillins Allergy Unknown Verified 09/17/23 10:46 pregabalin [Lyrica] Allergy Unknown Verified 09/17/23 10:46 Sulfa (Sulfonamide Allergy Unknown Verified 09/17/23 10:46 Antibiotics) tizanidine Allergy Unknown Verified 09/17/23 10:46 tramadol Allergy Unknown Verified 09/17/23 10:46 varenicline [From Chantix] Allergy UNKNOWN Verified 09/17/23 10:46 venlafaxine Allergy Unknown Verified 09/17/23 10:46 Current Medications Generic Name Dose Route Start Last Admin Trade Name Freq PRN Reason Stop Dose Admin Sodium Chloride 1,000 mls @ 30 mls/hr 09/19/23 06:00 09/19/23 06:27 Sodium Chloride 0.9% IV 09/20/23 05:59 30 mls/hr .Q24H AKUA Administration PFSH Anesthesia Medical History Acute respiratory failure with hypoxia Anxiety Aortic regurgitation Bereavement counseling Community acquired pneumonia Compression fracture Depression with anxiety Eczema Essential (primary) hypertension Facial swelling Fibromyalgia GERD without esophagitis High risk medication use Hyperlipidemia Hypothyroidism Immunization counseling Inflammatory arthritis Intermittent palpitations Ischemic stroke Pneumonia Polyarticular psoriatic arthritis Psoriatic arthritis Respiratory failure Seronegative rheumatoid arthritis Surgical History H/O breast biopsy H/O esophagogastroduodenoscopy (11/07/20) H/O thyroidectomy History of tonsillectomy Hx of cholecystectomy Status post colonoscopy (11/07/20) Family History Mother Rheumatoid arthritis Father Rheumatoid arthritis Leukemia Denies family history of Lupus Social History Smoking and tobacco/nicotine status: current every day tobacco/nicotine user cigarettes Packs smoked per day: 0.25 Years cigarettes smoked: 25 [ Other cigarette details: 2ppd x 25 years, currently trying to quit] Second hand smoke exposure: Yes Alcohol intake: never Substance/Drug Use: never Marital status: Current occupational status: disabled Current gender identity: Female Data Anesthesia Cardiac Studies: Echocardiogram 05/30/23 Echocardiogram Ultrasound 09/03/20 Sestamibi Stress Test (Cardiology) 11/29/22 Holter Monitor 09/14/19
--- NOTE | 2023-09-19 06:56 | PM.HP ---
Providers/Chief Complaint Primary Care Provider: Afia Barrett NP Chief Complaint: K21.9 History of Present Illness Angie Naranjo is a 57 year old female Review of Systems General: Reports: 10 or more systems reviewed and unremarkable except in HPI and below Medications/Allergies Home Medications Medication Instructions Recorded Confirmed Last Taken Type carvedilol 25 mg tablet 25 mg PO BID #60 tabs 12/05/20 09/17/23 09/18/23 Rx Nebulizer machine #1 ea 12/06/20 07/01/23 09/18/23 Rx levothyroxine 100 mcg tablet 100 mcg PO DAILY #90 tabs 12/15/20 09/17/23 09/18/23 Rx hydroxyzine HCl 25 mg tablet 25 mg PO QID PRN anxiety #120 tabs 01/17/21 09/17/23 09/18/23 Rx clonidine HCl 0.1 mg tablet 0.1 mg PO DAILY PRN hypertensive 03/06/21 09/17/23 09/18/23 Rx emergency #90 tabs fluoxetine 20 mg capsule (Prozac) 20 mg PO DAILY 01/04/22 09/17/23 09/18/23 History cholecalciferol (vitamin D3) 50 2,000 unit PO DAILY #30 tabs 01/29/22 09/17/23 09/18/23 Rx mcg (2,000 unit) tablet clopidogrel 75 mg tablet 75 mg PO DAILY 02/03/22 09/17/23 09/18/23 History albuterol sulfate 1.25 mg/3 mL 1.25 mg (3 mL) inhalation Q8H PRN 02/06/22 09/17/23 09/17/23 Rx solution for nebulization shortness of breath or wheezing #75 mL albuterol sulfate 90 mcg/actuation 2 inh inhalation Q8H PRN shortness 02/06/22 09/17/23 09/17/23 Rx aerosol inhaler of breath or wheezing #8.5 grams atorvastatin 40 mg tablet 40 mg PO QPM 08/23/22 09/17/23 09/18/23 History vitamin E 268 mg (400 unit) capsule 268 mg PO DAILY 08/23/22 09/17/23 09/18/23 History cyclobenzaprine 10 mg tablet 10 mg PO BID 10/10/22 09/17/23 09/18/23 History potassium chloride 20 mEq 20 meq PO .COMPLEX #45 tabs 10/10/22 09/17/23 09/18/23 Rx tablet,extended release topiramate 25 mg tablet 25 mg PO BID 10/10/22 09/17/23 09/18/23 History guaifenesin 600 mg tablet, 600 mg PO BID 10/16/22 09/17/23 09/18/23 History extended release 12 hr fluticasone fur. 100 mcg-umeclid 1 inh inhalation DAILY #60 ea 05/05/23 09/17/23 09/18/23 Rx 62.5 mcg-vilant 25 mcg inhalat.powder (Trelegy Ellipta) verapamil 180 mg 24 hr 180 mg PO DAILY #90 caps 05/05/23 09/17/23 09/18/23 Rx capsule,extended release furosemide 20 mg tablet (Lasix) 20 mg PO DIRECTED 05/06/23 09/17/23 09/18/23 History nitroglycerin 0.4 mg sublingual 0.4 mg sublingual Q5M PRN chest 05/06/23 09/19/23 09/05/23 Rx tablet pain #30 tabs folic acid 1 mg tablet 1 mg PO DAILY #30 tabs 06/18/23 09/17/23 09/18/23 Rx methotrexate sodium 2.5 mg tablet 20 mg (8 x 2.5 mg) PO .Q7days #40 06/18/23 09/17/23 09/18/23 Rx tabs pantoprazole 40 mg tablet,delayed 40 mg PO BID 6 weeks #84 tabs 07/01/23 09/17/23 09/18/23 Rx release (Protonix) secukinumab 150 mg/mL subcutaneous 300 mg (2 mL) SUBCUT .C4tazke #2 mL 07/08/23 09/17/23 09/03/23 Rx pen injector (Cosentyx Pen 300 mg/2 Pens () hydrocodone 5 mg-acetaminophen 325 1 tab PO Q6H PRN pain #20 tabs 07/10/23 09/17/23 09/18/23 Rx mg tablet isosorbide mononitrate 30 mg 30 mg PO BID 09/17/23 09/17/23 09/18/23 History tablet,extended release 24 hr prednisone 10 mg tablet 10 mg PO DAILY 09/17/23 09/17/23 09/18/23 History triamcinolone acetonide 0.1 % 1 applic topical BID PRN Rash 09/17/23 09/17/23 Unknown History topical ointment Allergies Allergy/AdvReac Type Severity Reaction Status Date / Time sertraline [From Zoloft] Allergy Unknown Unknown Verified 09/17/23 10:46 aspirin Allergy Unknown Verified 09/17/23 10:46 buspirone [From BuSpar] Allergy Unknown Verified 09/17/23 10:46 codeine Allergy Unknown Verified 09/17/23 10:46 diltiazem Allergy Unknown Verified 09/17/23 10:46 duloxetine Allergy Unknown Verified 09/17/23 10:46 gabapentin [From Neurontin] Allergy Unknown Verified 09/17/23 10:46 ibuprofen Allergy UNKNOWN Verified 09/17/23 10:46 iodine Allergy Unknown Verified 09/17/23 10:46 ketorolac [From Toradol] Allergy UNKNOWN Verified 09/17/23 10:46 lisinopril Allergy Unknown Verified 09/17/23 10:46 Penicillins Allergy Unknown Verified 09/17/23 10:46 pregabalin [Lyrica] Allergy Unknown Verified 09/17/23 10:46 Sulfa (Sulfonamide Allergy Unknown Verified 09/17/23 10:46 Antibiotics) tizanidine Allergy Unknown Verified 09/17/23 10:46 tramadol Allergy Unknown Verified 09/17/23 10:46 varenicline [From Chantix] Allergy UNKNOWN Verified 09/17/23 10:46 venlafaxine Allergy Unknown Verified 09/17/23 10:46 PFSH Acute PFSH: Medical History Acute respiratory failure with hypoxia Anxiety Aortic regurgitation Bereavement counseling Community acquired pneumonia Compression fracture Depression with anxiety Eczema Essential (primary) hypertension Facial swelling Fibromyalgia GERD without esophagitis High risk medication use Hyperlipidemia Hypothyroidism Immunization counseling Inflammatory arthritis Intermittent palpitations Ischemic stroke Pneumonia Polyarticular psoriatic arthritis Psoriatic arthritis Respiratory failure Seronegative rheumatoid arthritis Surgical History H/O breast biopsy H/O esophagogastroduodenoscopy (11/07/20) H/O thyroidectomy History of tonsillectomy Hx of cholecystectomy Status post colonoscopy (03/02/21) Family History Mother Rheumatoid arthritis Father Rheumatoid arthritis Leukemia Denies family history of Lupus Social History Smoking and tobacco/nicotine status: current every day tobacco/nicotine user cigarettes Packs smoked per day: 0.25 Years cigarettes smoked: 25 [ Other cigarette details: 2ppd x 25 years, currently trying to quit] Second hand smoke exposure: Yes Alcohol intake: never Substance/Drug Use: never Marital status: Current occupational status: disabled Current gender identity: Female Vitals/I&O/Wt Last Vital Signs Temp 97 F L 09/19/23 06:13 Pulse 103 H 09/19/23 06:13 Resp 20 H 09/19/23 06:13 BP 123/83 09/19/23 06:13 Pulse Ox 93 09/19/23 06:13 O2 Del Method Room Air 09/19/23 06:13 Weight last 48 hrs Weight 180 lb A&P Assessment and plan (1) GERD (gastroesophageal reflux disease): (2) Colon cancer screening: (3) Dysphagia: Plan EGD with possible balloon dilation and colonoscopy Attestations Medical Necessity Statement*: Home Coding Level of Care Code Acute Code for Chg Fwd Diagnoses GERD (gastroesophageal reflux disease) K21.9 Colon cancer screening Z12.11 Dysphagia R13.10
[2023-09-19 07:31] VITALS: BP 101/75; PULSE 79; RESP 18; TEMP 36.3; O2SAT 97
[2023-09-19 07:50] VITALS: BP 142/89; PULSE 90; RESP 16; O2SAT 100
== END 2023-09-19 08:17 | disposition home or self-care (01) ==
PROVIDERS: PCP Nurse Practitioner Family; Visit Provider Surgery
PROC: 0DJD8ZZ Inspection of Lower Intestinal Tract, Via Natural or Artificial Opening Endoscopic (ICD-10-PCS; CPT 45378; 2023-09-19 07:00)
DX: Z12.11 Encounter for screening for malignant neoplasm of colon (principal); R13.10 Dysphagia, unspecified; D12.3 Benign neoplasm of transverse colon; K21.00 Gastro-esophageal reflux disease with esophagitis, without bleeding; M79.7 Fibromyalgia; E78.5 Hyperlipidemia, unspecified; E03.9 Hypothyroidism, unspecified; F17.210 Nicotine dependence, cigarettes, uncomplicated; K64.8 Other hemorrhoids; K29.50 Unspecified chronic gastritis without bleeding; I11.0 Hypertensive heart disease with heart failure; I50.9 Heart failure, unspecified; I48.91 Unspecified atrial fibrillation
CPT/HCPCS: 43239; 43249; 45385; 88305; 88342; 94640; J2704; J7030

== ENCOUNTER → 2023-10-20 10:12 | Outpatient (BNVA) | payer MEDICARE, MEDICAID, SELFPAY | PROVIDERS: PCP Nurse Practitioner Family; Visit Provider Surgery | DX: Z09 Encounter for follow-up examination after completed treatment for conditions other than malignant neoplasm (principal); K21.9 Gastro-esophageal reflux disease without esophagitis; K22.70 Barrett's esophagus without dysplasia; D37.4 Neoplasm of uncertain behavior of colon | CPT/HCPCS: 99214 ==

== ENCOUNTER → 2023-10-22 10:14 | Outpatient (BNVA) | payer MEDICARE, MEDICAID, SELFPAY | PROVIDERS: PCP Nurse Practitioner Family; Visit Provider Internal Medicine Rheumatology | DX: Z79.899 Other long term (current) drug therapy (principal); L40.50 Arthropathic psoriasis, unspecified; M06.00 Rheumatoid arthritis without rheumatoid factor, unspecified site; Z71.89 Other specified counseling; Z71.85 Encounter for immunization safety counseling | CPT/HCPCS: 36415; 80076; 82565; 85025; 86140; 99214 ==

== ENCOUNTER 2023-10-28 11:36 | Emergency (ER) | payer MEDICARE, MEDICAID, SELFPAY ==
--- NOTE | 2023-10-28 11:37 | ED_ITS ---
HPI - SOB/Dyspnea 2 General: Chief Complaint: Shortness of Breath/Dyspnea Stated Complaint: SOB, Back Pain Time Seen by Provider: 10/28/23 11:37 History of Present Illness: HPI Narrative: 57-year-old female presents to the emerg ency department via EMS personnel with complaints of increased shortness of breath. She states she normally uses home oxygen at 3 L nasal cannula and over the previous 1 week had to increase to 4 L nasal cannula. She states she also has chronic back pain which appears to be more painful today than usual. She states her main concern is her abdominal distention and abdominal discomfort. She states she did have a bowel movement yesterday but her abdomen appears to be significantly distended and very bloated. She states her abdominal pain is a dull aching type pain to the generalized abdomen. She denies nausea or vomiting or diarrhea. She states nothing makes her pain better nothing makes her pain worse. She states she is on a pain contract and is seen by pain management for her chronic back pain. Associated symptoms: Reports abdominal pain Review of Systems 2 General: Reports: 10 or more systems reviewed and unremarkable except in HPI and below Resp: Reports: dyspnea and wheezing GI: Reports: abdominal pain Musc: Reports: back pain PFSH ED 2 PFSH: Medical History Pneumonia Psoriatic arthritis Compression fracture Acute respiratory failure with hypoxia Community acquired pneumonia Facial swelling Ischemic stroke Respiratory failure Anxiety Bereavement counseling Immunization counseling High risk medication use Depression with anxiety Aortic regurgitation Hypothyroidism GERD without esophagitis Intermittent palpitations Hyperlipidemia Seronegative rheumatoid arthritis Essential (primary) hypertension Eczema Inflammatory arthritis Fibromyalgia Polyarticular psoriatic arthritis Surgical History H/O esophagogastroduodenoscopy (11/07/20) H/O breast biopsy Status post colonoscopy (11/07/20) H/O thyroidectomy Hx of cholecystectomy History of tonsillectomy Family History Mother Rheumatoid arthritis Father Rheumatoid arthritis Leukemia Denies family history of Lupus Social History Smoking and tobacco/nicotine status: current every day tobacco/nicotine user cigarettes Packs smoked per day: 0.25 Years cigarettes smoked: 25 [ Other cigarette details: 2ppd x 25 years, currently trying to quit] Second hand smoke exposure: Yes Alcohol intake: never Substance/Drug Use: never Marital status: Current occupational status: disabled Current gender identity: Female Physical Exam 2 Narrative: EXAM NARRATIVE: Constitutional: the patient appears well nourished and with normal development. Vital signs reviewed as documented. HENMT: Normocephalic, atraumatic. External ears normal appearance without drainage. Nose without drainage, normal appearance. Mucus membranes moist. Neck is supple, No jugular venous distension, trachea is midline, no appreciable carotid bruits. No lymphadenopathy. No meningeal signs. Flexion, extension and lateral rotation is without pain. Eyes: Pupils are equal, round, reactive to light and accommodation. No scleral icterus. Extra-ocular movement are intact. Thorax is symmetrical and with equal rise and fall with respirations. Resp: Lungs are clear to auscultation. Decreased bilaterally in the bases, intermittent expiratory wheezes that clear with coughing. No rales, crackles or ronchi at present. Cardio: Regular rate and rhythm. Positive S1, S2. No appreciable murmurs, rubs or gallops. GI: Abdominal exam reveals normal bowel sounds to all quadrants. No organomegaly. No obvious palpable masses noted. No hepatomegally appreciated. Soft, non-tender to palpation. Her abdomen does not appear distended. There is no abdominal ascites I can appreciate at present. Extremity: Extremities are non-edematous and both femoral and pedal pulses are 2+ and equal bilaterally. Moves all extremities well, sensation in all extremities. Neuro: Alert and oriented x4, person, place, time and situation. Motor strength in the upper and lower extremities are equal and bilateral 5/5. Psych: Cooperative, calm, normal thought process, appropriate judgment. Skin: No lesions, rashes. No gross abnormalities noted. Back: Symmetrical, no obvious deformity, No CVA tenderness Course 2 Vital Signs: Vital signs: Vital Signs Temperature 98.0 F 10/28/23 11:39 Pulse Rate 78 10/28/23 15:39 Respiratory Rate 18 10/28/23 13:32 Blood Pressure 114/67 10/28/23 15:39 Pulse Oximetry 100 10/28/23 15:39 Oxygen Delivery Me thod Nasal Cannula 10/28/23 11:39 Oxygen Flow Rate 4 10/28/23 11:39 MDM - SOB/Dyspnea Medical Decision Making Physical exam completed and documented, I will obtain laboratory evaluation to include a CBC, CMP, lipase, urinalysis, and a CT scan of the patient's abdomen pelvis to evaluate for possible differential diagnosis of bowel obstruction, incarcerated hernia, abdominal wall strain, abdominal wall hematoma, constipation, possible colitis, acute appendicitis, diverticulitis. Medical Records I reviewed the patient's medical records. Lab Data I reviewed the patient's lab results. 10/28/23 11:49 10/28/23 11:49 Labs/Radiology: Radiology Impressions Chest X-Ray 10/28/23 11:38 IMPRESSION: No acute intrathoracic findings. Laboratory Results WBC 6.33 10^3/uL (3.29-11.43) 10/28/23 11:49 RBC 4.40 10^6/uL (3.85-5.65) 10/28/23 11:49 Hgb 13.40 g/dL (11.27-16.99) 10/28/23 11:49 Hct 42.4 % (36-47) 10/28/23 11:49 MCV 96.4 fl (85-98) 10/28/23 11:49 MCH 30.5 pg (27-33) 10/28/23 11:49 MCHC 31.6 g/dL (30-55) 10/28/23 11:49 RDW 14.2 % (12.1-15.1) 10/28/23 11:49 Plt Count 192 10^3/cmm (157-399) 10/28/23 11:49 MPV 9.5 fL (7.4-10.4) 10/28/23 11:49 Neut % (Auto) 64.8 % 10/28/23 11:49 Lymph % (Auto) 21.3 % 10/28/23 11:49 Nolan % (Auto) 10.9 % 10/28/23 11:49 Eos % (Auto) 2.4 % 10/28/23 11:49 Baso % (Auto) 0.3 % 10/28/23 11:49 Neut # (Auto) 4.10 10^3/uL (1.8-7.7) 10/28/23 11:49 Lymph # (Auto) 1.4 10^3/uL (0.8-4.8) 10/28/23 11:49 Nolan # (Auto) 0.7 10^3/uL (0.2-0.9) 10/28/23 11:49 Eos # (Auto) 0.2 10^3/uL (0.0-0.8) 10/28/23 11:49 Baso # (Auto) 0.0 10^3/uL (0.0-0.1) 10/28/23 11:49 Nucleated RBC % (auto) 0 % 10/28/23 11:49 Nucleated RBCs # 0.0 /100WBC 10/28/23 11:49 Sodium 140 mmol/L (136-145) 10/28/23 11:49 Potassium 2.6 mmol/L (3.5-5.1) L* 10/28/23 11:49 Chloride 90 mmol/L (98-107) L 10/28/23 11:49 Carbon Dioxide 40 mmol/L (22-29) H 10/28/23 11:49 Anion Gap 12.6 (5-19) 10/28/23 11:49 BUN 6 mg/dL (6-20) 10/28/23 11:49 Creatinine 0.6 mg/dL (0.5-0.9) 10/28/23 11:49 GFR Calculation 102.3 mL/min (90-130) 10/28/23 11:49 Glucose 129 mg/dL (65-115) H 10/28/23 11:49 Calculated Osmolality 289 mOsm/kg (285-295) 10/28/23 11:49 Calcium 8.8 mg/dL (8.5-10.5) 10/28/23 11:49 Total Bilirubin 0.4 mg/dL (0.15-1.2) 10/28/23 11:49 AST 12 U/L (0-32) 10/28/23 11:49 ALT 11 U/L (0-33) 10/28/23 11:49 Alkaline Phosphatase 104 U/L (35-105) 10/28/23 11:49 Troponin T Baseline 18 ng/L (0-10) H 10/28/23 11:49 Troponin T 120 Minute 16.42 ng/L (0-10) H 10/28/23 13:37 Delta Troponin T -1.58 ABS# (0-10) L 10/28/23 13:37 NT-Pro-B Natriuret Pep 170 pg/mL (0-125) H 10/28/23 11:49 Total Protein 5.8 g/dL (6.6-8.7) L 10/28/23 11:49 Albumin 3.6 g/dL (3.5-5.2) 10/28/23 11:49 Globulin 2.2 g/dL (1.3-4.6) 10/28/23 11:49 Lipase 17 U/L (13-60) 10/28/23 11:49 Procalcitonin 0.06 ng/mL (0-0.5) 10/28/23 11:49 All radiology interpretation(s) finalized by discharge Discharge Plan Discharge Patient Disposition: Home Clinical Impression: Acute hypokalemia Compression fracture of T10 vertebra Qualifiers: Encounter type: initial encounter Qualified Code(s): S22.070A - Wedge compression fracture of T9-T10 vertebra, initial encounter for closed fracture Compression fracture of T11 vertebra Qualifiers: Encounter type: initial encounter Qualified Code(s): S22.080A - Wedge compression fracture of T11-T12 vertebra, initial encounter for closed fracture T12 compression fracture Qualifiers: Encounter type: initial encounter Qualified Code(s): S22.080A - Wedge compression fracture of T11-T12 vertebra, initial encounter for closed fracture Compression fracture of T9 vertebra Qualifiers: Encounter type: initial encounter Qualified Code(s): S22.070A - Wedge compression fracture of T9-T10 vertebra, initial encounter for closed fracture Closed compression fracture of L3 vertebra Qualifiers: Encounter type: initial encounter Qualified Code(s): S32.030A - Wedge compression fracture of third lumbar vertebra, initial encounter for closed fracture Closed compression fracture of L5 vertebra Qualifiers: Encounter type: initial encounter Qualified Code(s): S32.050A - Wedge compression fracture of fifth lumbar vertebra, initial encounter for closed fracture Condition: Stable Prescriptions: No Action carvedilol 25 mg tablet 25 mg PO BID Qty: 60 4RF Rx Instructions: AT 0800, 2000 cyclobenzaprine 10 mg tablet 10 mg PO BID topiramate 25 mg tablet 25 mg PO BID potassium chloride 20 mEq tablet extended release 20 meq PO .COMPLEX Qty: 45 3RF Rx Instructions: 20 mEq orally Take 20 meq and 40 meq on alternate days with lasix; folic acid 1 mg tablet 1 mg PO DAILY Qty: 30 5RF methotrexate sodium 2.5 mg tablet 20 mg PO .Q7days Qty: 40 3RF Rx Instructions: pt is aware to hold for two weeks before restarting after inffection is gone prednisone 10 mg tablet 10 mg PO DAILY Qty: 90 1RF Rx Instructions: TAKE 1 TABLET BY MOUTH EVERY DAY FOR JOINT PAIN Cosentyx Pen (2 Pens) 150 mg/mL pen injector 300 mg SUBCUT .[id number] Qty: 2 4RF fluoxetine [Prozac] 20 mg capsule 20 mg PO DAILY guaifenesin 600 mg tablet extended release 12hr 600 mg PO BID furosemide [Lasix] 20 mg tablet 20 mg PO DIRECTED Rx Instructions: Take 20 mg and 40 mg on alternate days nitroglycerin 0.4 mg tablet, sublingual 0.4 mg sublingual Q5M PRN (Reason: chest pain) Qty: 30 6RF Rx Instructions: do not exceed 3 doses per episode (DME) Nebulizer machine See Rx Instructions .Route .MEDSUPPLY Qty: 1 0RF Rx Instructions: As directed levothyroxine 100 mcg tablet 100 mcg PO DAILY Qty: 90 0RF hydroxyzine HCl 25 mg tablet 25 mg PO QID PRN (Reason: anxiety) Qty: 120 1RF Rx Instructions: take also for itching clonidine HCl 0.1 mg tablet 0.1 mg PO DAILY PRN (Reason: hypertensive emergency) Qty: 90 1RF cholecalciferol (vitamin D3) 50 mcg (2,000 unit) tablet 2,000 unit PO DAILY Qty: 30 0RF Rx Instructions: AT 0800 verapamil 180 mg capsule,ext rel. pellets 24 hr 180 mg PO DAILY Qty: 90 1RF Trelegy Ellipta 100-62.5-25 mcg blister with device 1 inh INHALATION DAILY Qty: 60 3RF atorvastatin 40 mg tablet 40 mg PO QPM vitamin E 268 mg (400 unit) Capsule 268 mg PO DAILY clopidogrel 75 mg tablet 75 mg PO DAILY Hold Instructions: Resume on 09/21/23. albuterol sulfate 90 mcg/actuation HFA aerosol inhaler 2 inh inhalation Q8H PRN (Reason: shortness of breath or wheezing) Qty: 8.5 3RF albuterol sulfate 1.25 mg/3 mL solution for nebulization 1.25 mg inhalation Q8H PRN (Reason: shortness of breath or wheezing) Qty: 75 1RF hydrocodone-acetaminophen 5-325 mg tablet 1 tab PO Q6H PRN (Reason: pain) Qty: 20 0RF isosorbide mononitrate 30 mg tablet extended release 24 hr 30 mg PO BID Rx Instructions: TAKE 1 TABLET BY MOUTH TWICE DAILY triamcinolone acetonide 0.1 % ointment 1 applic topical BID PRN (Reason: Rash) Rx Instructions: APPLY TO AFFECTED AREA TWO TIMES DAILY NEEDED Protonix 40 mg tablet,delayed release (DR/EC) 40 mg PO DAILY Qty: 30 5RF Discharge Orders: Discharge ED (Routine); Ordered 10/28/23 Ordered By: Dennis Carcamo Referrals: Kelvin Jennings DO [Physician] - Afia Barrett NP [Primary Care Provider] - Discharge Diet: Usual diet Patient Instructions: Opioid Safety, Pain Management Activity Restrictions/Additional Instructions: Activity Restrictions/Additional Instructions: Thank you for choosing [facility] for your healthcare needs today. Please realize that you were seen in the Emergency Department and that we are providing you with an emergency medical screening exam and this may not be a complete and all inclusive of all the testing and or medical work-up that you may need to determine your ailment or severity of your illness. It is very important that you follow-up as instructed with your Primary care provider or Specialist for additional evaluation and to discuss your medical treatment plan. Is very important to contact your pain management physician to let them know that you received opioid pain medication here in the emergency department today and to also discuss any adjustment needed for your newly diagnosed compression fractures. Coding Level of Care Code ED Neuro Urologist for Dom Casas
--- NOTE | 2023-10-28 11:38 | XRR_ITS ---
PROCEDURE INFORMATION: Exam: XR Chest Exam date and time: 10/28/2023 11:46 AM Age: 57 years old Clinical indication: Dyspnea TECHNIQUE: Imaging protocol: Radiologic exam of the chest. Views: 1 view. COMPARISON: CR XR chest 1V portable [id number] 07/10/2023 10:59 AM FINDINGS: Lungs: No consolidation. Pleural spaces: No sizable pleural effusion or pneumothorax. Heart/Mediastinum: No cardiomegaly. Bones/joints: Unremarkable. XR/XR chest 1V portable [id number] IMPRESSION: No acute intrathoracic findings.
[2023-10-28 11:39] VITALS: BP 116/74; PULSE 82; RESP 18; TEMP 36.7; O2SAT 96; BMI 31.2
--- NOTE | 2023-10-28 11:49 | CT_ITS ---
WS: [id number] CT ABDOMEN PELVIS TECHNIQUE: Noncontrast CT of the abdomen and pelvis with coronal and sagittal reformatted images. CLINICAL INFORMATION: Abd pain and distension COMPARISON: None. DLP: 834.[address] scans at [facility] use at least one of these dose optimization techniques: automated e xposure control; mA and/or kV adjustment per patient size (includes targeted exams where dose is matc hed to clinical indication); or iterative reconstruction. FINDINGS: Lung bases are well aerated. Tiny esophageal hiatal hernia. Normal noncontrast liver. Cholecystectomy clips. Small RIGHT hepatic cyst measuring 1.6 cm. Noncontrast spleen is normal. Normal noncontrast p ancreas. Adrenal glands are normal. LEFT renal cyst measuring 2.1 cm. Tiny nonobstructing RIGHT renal parenchymal calculi. No hydronephrosis in the either kidney. No obstructing renal or ureteral calcul i. Normal caliber abdominal aorta. Aortic calcification. Normal sigmoid colon. Mild sigmoid constipation . No evidence of high-grade small or large bowel obstruction. Normal appendix in the RIGHT lower quad rant. Mild compression superior endplate L5 is new since the CT 07/10/23 with loss of approximately 25% vert ebral body height. No significant retropulsion. Recommend correlation with low back pain. Slight comp ression superior endplate L3 Additional compression deformities T9, T10, T11, T12 with sclerosis. These appear new since the prior thoracic spine CT 07/10/23 Compression fracture worse at T12 with mild biconcave compression loss of approximately 30% vertebral body height. No significant retropulsion at these levels. Small polypoid areas of increased attenuation within the cervix. IMPRESSION: 1. Multiple compression fractures are new since July 2023 at T9, T10, T11, T12, and L5. No signi ficant retropulsion. Slight compression L3 appears new from previous. 2. Prior cholecystectomy. 3. Small esophageal hiatal hernia. 4. No evidence of small or large bowel obstruction. Mild sigmoid constipation. 5. No hydronephrosis in either kidney. 6. Small polypoid areas areas of increased attenuation within the cervix. Recommend follow-up with p rick ultrasound and/or EXEC. CREATIVE DIRECTOR consultation. Notified Dennis Carcamo MD at 10/28/2023 12:58 PM.
[2023-10-28 12:01] LABS: Basophils % 0.3 %; Eosinophils # 0.2 10^3/uL (0.0-0.8); Eosinophils % 2.4 %; Hematocrit 42.4 % (36-47); Lymphocytes # 1.4 10^3/uL (0.8-4.8); Lymphocytes % 21.3 %; Mean Corpuscular HGB Conc 31.6 g/dL (30-55); Mean Corpuscular Hemoglobin 30.5 pg (27-33); Mean Corpuscular Volume 96.4 fl (85-98); Mean Platelet Volume 9.5 fL (7.4-10.4); Monocytes # 0.7 10^3/uL (0.2-0.9); Monocytes % 10.9 %; Neutrophils % 64.8 %; Nucleated Red Blood Cells % 0 %; Platelet Count 192 10^3/cmm (157-399); Red Cell Distribution Width 14.2 % (12.1-15.1); White Blood Count 6.33 10^3/uL (3.29-11.43)
[2023-10-28 12:12] VITALS: BP 127/70; PULSE 77; O2SAT 95
--- NOTE | 2023-10-28 12:13 | ECG_ITS ---
[facility] Test Date: 2023-10-28 Pat Name: Angie Naranjo Department: Room: Gender: Female Callisthenics Instructor: : [id number] Requested By: Dennis Carcamo Order Number: [id number] Asa MD: Gui Conway M.D. Measurements Intervals [place] Rate: 74 P: 69 AK: 178 QRS: -5 QRSD: 88 T: 30 QT: 318 QTc: 353 Interpretive Statements SINUS RHYTHM POSSIBLE LEFT ATRIAL ENLARGEMENT [-0.1mV P-WAVE IN V1/V2] NONSPECIFIC ST & T-WAVE ABNORMALITY Compared to ECG 07/10/2023 10:44:46 T-wave abnormality now present Myocardial infarct finding no longer present Electronically Signed On 10-28-2023 13:31:49 [employer] by Gui Conway M.D. [id number]
[2023-10-28 12:28] LABS: Troponin(5th) Baseline 18 ng/L (0-10)
[2023-10-28 12:35] LABS: NT Pro B Type Natriuretic Pept 170 pg/mL (0-125); Procalcitonin 0.06 ng/mL (0-0.5)
[2023-10-28 12:46] LABS: Alanine Aminotransferase 11 U/L (0-33); Albumin Level 3.6 g/dL (3.5-5.2); Alkaline Phosphatase 104 U/L (35-105); Anion Gap 12.6 (5-19); Aspartate Amino Transferase 12 U/L (0-32); Blood Urea Nitrogen 6 mg/dL (6-20); Calcium 8.8 mg/dL (8.5-10.5); Carbon Dioxide 40 mmol/L (22-29); Chloride 90 mmol/L (98-107); Globulin 2.2 g/dL (1.3-4.6); Glomerular Filtration Rate 102.3 mL/min (90-130); Glucose 129 mg/dL (65-115); Lipase 17 U/L (13-60); Osmolality Calculated 289 mOsm/kg (285-295); Sodium 140 mmol/L (136-145); Total Bilirubin 0.4 mg/dL (0.15-1.2); Total Protein 5.8 g/dL (6.6-8.7)
[2023-10-28 12:48] LABS: Potassium 2.6 mmol/L (3.5-5.1)
[2023-10-28 13:30] VITALS: BP 92/55; PULSE 73; O2SAT 98
[2023-10-28] MEDS: ondansetron 2 mg/ML SDV 2 mL 4 MG IVP (13:30)
[2023-10-28] MEDS: potassium chloride ER 20 mEq Tablet 40 MEQ PO (13:31)
[2023-10-28 13:32] VITALS: RESP 18; O2SAT 97
[2023-10-28] MEDS: fentaNYL 50 mcg/mL INJ 2mL IVP (13:32)
[2023-10-28 14:00] LABS: Troponin 5 2HR 16.42 ng/L (0-10)
[2023-10-28 14:01] LABS: Troponin 5 2HR Delta -1.58 ABS# (0-10)
[2023-10-28 15:39] VITALS: BP 114/67; PULSE 78; O2SAT 100
== END 2023-10-28 15:40 | disposition home or self-care (01) ==
PROVIDERS: Emergency Provider Internal Medicine; PCP Nurse Practitioner Family
DX: E87.6 Hypokalemia (principal); S22.070A Wedge compression fracture of T9-T10 vertebra, initial encounter for closed fracture; S22.080A Wedge compression fracture of T11-T12 vertebra, initial encounter for closed fracture; S32.030A Wedge compression fracture of third lumbar vertebra, initial encounter for closed fracture; S32.050A Wedge compression fracture of fifth lumbar vertebra, initial encounter for closed fracture; Z79.02 Long term (current) use of antithrombotics/antiplatelets; F17.210 Nicotine dependence, cigarettes, uncomplicated; Z86.73 Personal history of transient ischemic attack (TIA), and cerebral infarction without residual deficits; E78.5 Hyperlipidemia, unspecified; I10 Essential (primary) hypertension; Z99.81 Dependence on supplemental oxygen; X58.XXXA Exposure to other specified factors, initial encounter
CPT/HCPCS: 36415; 71045; 74176; 80053; 83690; 83880; 84145; 84484; 85025; 93005; 96374; 96375; 99285; J2405; J3010

== ENCOUNTER 2023-11-11 10:35 | Emergency (ER) | payer OTHER, MEDICAID, SELFPAY ==
[2023-11-11 10:36] VITALS: BP 157/83; PULSE 79; TEMP 36.8; O2SAT 94; BMI 31.9
--- NOTE | 2023-11-11 10:59 | W.ED.BACK ---
HPI - Back Pain/Injury General: Chief Complaint: Back Pain/Injury Stated Complaint: Back, hip, Chest pain Time Seen by Provider: 11/11/23 10:41 Source: EMS Mode of arrival: EMS Limitations: no limitations History of Present Illness: Patient is a 57-year-old female presents to ED today with a complaint of pain . Patient was seen here in our ED on 10/28 and diagnosed with multiple compression fractures in her back including T9, T10, T11, T12, L3 and L5. No significant retropulsion. Patient states she is essentially been bedbound secondary to the pain. She states she was chronically taking 2 10mg percocets daily prescribed to her by her pain management provider Dr. Calloway. She states he has increased of these to 3 times daily but they are doing nothing for the pain. She complains of pain in the left hip stating it is hard to get comfortable in bed. Reports it feels like my sciatica . She has not noticed any swelling to the left leg or any calf pain. She has not noticed any color or temperature changes. She is not having any numbness, tingling, loss of sensation to the leg. She also complains of intermittent chest pains over the past week or so. She is chronically on oxygen but states over the past 3 weeks she has had to wear it more often (reports prior to a month ago she could remove it at rest but now has to wear it all the time and even has to sometimes increase to 4L). She has follow-up with Dr. Jennings on 11/17 for the vertebral fractures. MD elicited complaint: back pain Onset (ago): day(s) Timing: constant Severity: severe Location: lumbar spine and thoracic spine Radiation: other (L hip) Exacerbating factors: movement Relieving factors: none Associated symptoms: Deny abdominal pain, chills, dysuria, fatigue, fever(s), nausea, syncope, urinary urgency or vomiting Treatments prior to arrival: prescription analgesics Work related injury: No Review of Systems Const: Denies: fever(s), chills, body aches, fatigue or malaise Card: Reports: chest pain and dyspnea on exertion (chronic); Denies: palpitations, irregular heart rhythm, edema, swelling of feet/ankles, lightheadedness, syncope, pre-syncope, orthopnea, leg pain with exertion or acrocyanosis Resp: Reports: dyspnea (acute on chronic); Denies: productive cough, non-productive cough, wheezing, stridor, pain on inspiration, change in phlegm color, hemoptysis or chest congestion GI: Denies: abdominal pain, nausea, vomiting or diarrhea : Denies: flank pain, difficulty voiding, dysuria, urinary frequency, urinary urgency or urinary hesitancy Musc: Reports: back pain and joint pain (L hip pain); Denies: neck pain, extremity pain, extremity swelling, joint swelling, joint redness or joint warmth Skin/Breast: Denies: rash Neuro: Denies: headache(s), numbness in extremities, weakness in extremities, sensory changes or dizziness PFSH ED PFSH: Medical History Pneumonia Psoriatic arthritis Compression fracture Acute respiratory failure with hypoxia Community acquired pneumonia Facial swelling Ischemic stroke Respiratory failure Anxiety Bereavement counseling Immunization counseling High risk medication use Depression with anxiety Aortic regurgitation Hypothyroidism GERD without esophagitis Intermittent palpitations Hyperlipidemia Seronegative rheumatoid arthritis Essential (primary) hypertension Eczema Inflammatory arthritis Fibromyalgia Polyarticular psoriatic arthritis Surgical History H/O esophagogastroduodenoscopy (11/07/20) H/O breast biopsy Status post colonoscopy (11/07/20) H/O thyroidectomy Hx of cholecystectomy History of tonsillectomy Family History Mother Rheumatoid arthritis Father Rheumatoid arthritis Leukemia Denies family history of Lupus Social History Smoking and tobacco/nicotine status: current every day tobacco/nicotine user cigarettes Packs smoked per day: 0.25 Years cigarettes smoked: 25 [ Other cigarette details: 2ppd x 25 years, currently trying to quit] Second hand smoke exposure: Yes Alcohol intake: never Substance/Drug Use: never Marital status: Current occupational status: disabled Current gender identity: Female Physical Exam Const: COMMON NORMALS: no acute distress, patient oriented x3, no limitations, alert and well nourished GENERAL APPEARANCE: cooperative ORIENTATION/CONSCIOUSNESS: Yes awake, Yes oriented to person and Yes oriented to place HENMT: COMMON NORMALS: normocephalic and atraumatic HEAD & SCALP: normal to inspection, normocephalic and atraumatic Neck/C-Spine: COMMON NORMALS: full ROM, no lymphadenopathy, supple and no meningeal signs Chest: COMMONS NORMALS: normal inspection of the chest and normal palpation of entire chest wall Resp: COMMON NORMALS: normal respiratory effort and clear to auscultation bilaterally AUSCULTATION: clear to auscultation bilaterally Cardio: COMMON NORMALS: regular rate and regular rhythm RATE: regular rate RHYTHM: regular rhythm GI: COMMON NORMALS: Normal to inspection, nondistended, normoactive bowel sounds present, Soft to palpation, non-tender, No hepatosplenomegaly present and no masses PALPATION: Yes Soft to palpation and Yes No hepatosplenomegaly present : COMMON NORMALS: Yes no CVA tenderness BLADDER/KIDNEY EXAM: Yes no CVA tenderness Back/Pelvis: COMMON NORMALS: no CVA tenderness THORACIC SPINE/UPPER BACK: Yes thoracic spinal tenderness LUMBAR SPINE/LOWER BACK: Yes lumbar spinal tenderness PELVIS: Yes buttocks normal and Yes sciatic notch tenderness on the left SACRUM: no tenderness COCCYX: no tenderness OTHER: ROM testing not performed secondary to known fractures Extremity: COMMON NORMALS: normal to inspection, capillary refill normal, no joint enlargement, no clubbing, cyanosis or edema, no calf tenderness and no pedal edema GENERAL: Yes normal exam except as noted LEFT LOWER EXTREMITY: Yes hip joint Left hip: Yes inspection (normal gross inspection ), Yes ROM (limited ROM secondary to pain), Yes neurovascular exam (normal) and Yes other (normal pulses found throughout extremity starting at femoral down to DP/PT) Neuro: COMMON NORMALS: patient oriented x3, moves all extremities, no focal motor deficits and no sensory deficits noted SENSORIUM/ORIENTATION: Yes alert, Yes oriented to person and Yes oriented to place MENINGEAL SIGNS: Yes no meningeal signs GAIT: Yes Unable to assess gait Skin: COMMON NORMALS: no rashes or lesions noted GENERAL SKIN EXAM: no rashes or lesions noted Course Vital Signs: Vital signs: Vital Signs Temperature 98.2 F 11/11/23 10:36 Pulse Rate 78 11/11/23 14:50 Respiratory Rate 16 11/11/23 11:56 Blood Pressure 138/81 11/11/23 14:50 Pulse Oximetry 98 11/11/23 14:50 Oxygen Delivery Me thod Nasal Cannula 11/11/23 10:36 Oxygen Flow Rate 3 11/11/23 10:36 MDM - Back Pain/Injury Medical Decision Making Patient is a 57-year-old female here with complaints of back pain as well as left hip pain no chest pain or shortness of breath. Back pain related to multiple thoracic and vertebral fractures she was found to have recently. She is already on oxycodone 10mg multiple times daily from her pain management provider. She has no acute neurologic deficits. Left hip pain could be secondary to her being sedentary in bed with her back fractures or could be referred as she does have lumbar vertebral fractures. Blood work here overall is unremarkable. Baseline troponin of 13 with a negative delta. EKGs are nonischemic. CXR is normal. She has had to increase her oxygen/wear it more continuously with her COPD. D-dimer was initially ordered and elevated. CTA imaging was obtained which shows no PE. No acute pulmonary infiltrates noted. There was a delay in her care as CTA was initially delayed secondary to a reported iodine allergy of throat closing . After careful history, patient tells me she had a topical iodine allergy at the age of 6 where she states her throat closed off but never was intubated or given meds for this apparently. Discussed possibility of VQ scan with Dr. Price/Dr. Werner and decision was made to premedicate patient with Benadryl and Solu-Medrol and go ahead and obtain CT imaging. Patient did fine with this. At this time she is stable for discharge. Recommend follow-up with Dr. Jennings as scheduled for her back on 11/17. Recommend speaking to her pain management provider about increasing her pain management regimen for better control of her discomfort. Recommend speaking to Dr. Lomeli in regards to her COPD. Medical Records I reviewed the patient's medical records. Labs I reviewed the patient's lab results. 11/11/23 11:48 11/11/23 11:48 Radiology Impressions Chest X-Ray 11/11/23 11:20 IMPRESSION: Trace atelectasis or scar noted in the right mid lung. Hip/Pelvis X-Ray 11/11/23 11:20 IMPRESSION: No acute findings. Laboratory Results WBC 10.02 10^3/uL (3.29-11.43) 11/11/23 11:48 RBC 4.71 10^6/uL (3.85-5.65) 11/11/23 11:48 Hgb 14.20 g/dL (11.27-16.99) 11/11/23 11:48 Hct 45.0 % (36-47) 11/11/23 11:48 MCV 95.5 fl (85-98) 11/11/23 11:48 MCH 30.1 pg (27-33) 11/11/23 11:48 MCHC 31.6 g/dL (30-55) 11/11/23 11:48 RDW 14.6 % (12.1-15.1) 11/11/23 11:48 Plt Count 292 10^3/cmm (157-399) 11/11/23 11:48 MPV 9.6 fL (7.4-10.4) 11/11/23 11:48 Neut % (Auto) 81.3 % 11/11/23 11:48 Lymph % (Auto) 11.8 % 11/11/23 11:48 [place] % (Auto) 5.2 % 11/11/23 11:48 Eos % (Auto) 0.5 % 11/11/23 11:48 Baso % (Auto) 0.3 % 11/11/23 11:48 Neut # (Auto) 8.15 10^3/uL (1.8-7.7) H 11/11/23 11:48 Lymph # (Auto) 1.2 10^3/uL (0.8-4.8) 11/11/23 11:48 [place] # (Auto) 0.5 10^3/uL (0.2-0.9) 11/11/23 11:48 Eos # (Auto) 0.1 10^3/uL (0.0-0.8) 11/11/23 11:48 Baso # (Auto) 0.0 10^3/uL (0.0-0.1) 11/11/23 11:48 Nucleated RBC % (auto) 0.2 % 11/11/23 11:48 Nucleated RBCs # 0.0 /100WBC 11/11/23 11:48 D-Dimer 1.29 ug/mLFEU (0-0.59) H 11/11/23 11:48 Sodium 139 mmol/L (136-145) 11/11/23 11:48 Potassium 3.5 mmol/L (3.5-5.1) 11/11/23 11:48 Chloride 92 mmol/L (98-107) L 11/11/23 11:48 Carbon Dioxide 34 mmol/L (22-29) H 11/11/23 11:48 Anion Gap 16.5 (5-19) 11/11/23 11:48 BUN 9 mg/dL (6-20) 11/11/23 11:48 Creatinine 0.9 mg/dL (0.5-0.9) 11/11/23 11:48 GFR Calculation 64.1 mL/min (90-130) L 11/11/23 11:48 Glucose 137 mg/dL (65-115) H 11/11/23 11:48 Calculated Osmolality 289 mOsm/kg (285-295) 11/11/23 11:48 Calcium 9.3 mg/dL (8.5-10.5) 11/11/23 11:48 Total Bilirubin 0.4 mg/dL (0.15-1.2) 11/11/23 11:48 AST 13 U/L (0-32) 11/11/23 11:48 ALT 9 U/L (0-33) 11/11/23 11:48 Alkaline Phosphatase 158 U/L (35-105) H 11/11/23 11:48 Troponin T Baseline 13 ng/L (0-10) H 11/11/23 11:48 Troponin T 120 Minute 10.07 ng/L (0-10) H 11/11/23 13:57 Delta Troponin T -2.93 ABS# (0-10) L 11/11/23 13:57 Total Protein 6.4 g/dL (6.6-8.7) L 11/11/23 11:48 Albumin 4.0 g/dL (3.5-5.2) 11/11/23 11:48 Globulin 2.4 g/dL (1.3-4.6) 11/11/23 11:48 All radiology interpretation(s) finalized by discharge Discharge Plan Discharge Patient Disposition: Home Clinical Impression: Acute pain of left hip Thoracic vertebral fracture Qualifiers: Encounter type: subsequent encounter Thoracic vertebra fracture level: unspecified thoracic vertebra Fracture type: closed Fracture morphology: unspecified fracture morphology Fracture healing: with routine healing Qualified Code(s): S22.009D - Unspecified fracture of unspecified thoracic vertebra, subsequent encounter for fracture with routine healing COPD (chronic obstructive pulmonary disease) Qualifiers: COPD type: unspecified COPD Qualified Code(s): J44.9 - Chronic obstructive pulmonary disease, unspecified Fracture of lumbar vertebra Qualifiers: Encounter type: subsequent encounter Lumbar vertebra fracture level: unspecified lumbar vertebra Fracture type: closed Fracture morphology: unspecified fracture morphology Fracture healing: with routine healing Qualified Code(s): S32.009D - Unspecified fracture of unspecified lumbar vertebra, subsequent encounter for fracture with routine healing Condition: Stable Prescriptions: No Action carvedilol 25 mg tablet 25 mg PO BID Qty: 60 4RF Rx Instructions: AT 0800, 2000 cyclobenzaprine 10 mg tablet 10 mg PO BID topiramate 25 mg tablet 25 mg PO BID potassium chloride 20 mEq tablet extended release 20 meq PO .COMPLEX Qty: 45 3RF Rx Instructions: 20 mEq orally Take 20 meq and 40 meq on alternate days with lasix; folic acid 1 mg tablet 1 mg PO DAILY Qty: 30 5RF methotrexate sodium 2.5 mg tablet 20 mg PO .Q7days Qty: 40 3RF Rx Instructions: pt is aware to hold for two weeks before restarting after inffection is gone prednisone 10 mg tablet 10 mg PO DAILY Qty: 90 1RF Cosentyx Pen (2 Pens) 150 mg/mL pen injector 300 mg SUBCUT .[id number] Qty: 2 4RF fluoxetine [Prozac] 20 mg capsule 20 mg PO DAILY guaifenesin 600 mg tablet extended release 12hr 600 mg PO BID furosemide [Lasix] 20 mg tablet 20 mg PO DIRECTED Rx Instructions: Take 20 mg and 40 mg on alternate days nitroglycerin 0.4 mg tablet, sublingual 0.4 mg sublingual Q5M PRN (Reason: chest pain) Qty: 30 6RF Rx Instructions: do not exceed 3 doses per episode (DME) Nebulizer machine See Rx Instructions .Route .MEDSUPPLY Qty: 1 0RF Rx Instructions: As directed levothyroxine 100 mcg tablet 100 mcg PO DAILY Qty: 90 0RF hydroxyzine HCl 25 mg tablet 25 mg PO QID PRN (Reason: anxiety) Qty: 120 1RF Rx Instructions: take also for itching clonidine HCl 0.1 mg tablet 0.1 mg PO DAILY PRN (Reason: hypertensive emergency) Qty: 90 1RF cholecalciferol (vitamin D3) 50 mcg (2,000 unit) tablet 2,000 unit PO DAILY Qty: 30 0RF Rx Instructions: AT 0800 verapamil 180 mg capsule,ext rel. pellets 24 hr 180 mg PO DAILY Qty: 90 1RF Trelegy Ellipta 100-62.5-25 mcg blister with device 1 inh INHALATION DAILY Qty: 60 3RF atorvastatin 40 mg tablet 40 mg PO QPM vitamin E 268 mg (400 unit) Capsule 268 mg PO DAILY clopidogrel 75 mg tablet 75 mg PO DAILY Hold Instructions: Resume on 09/21/23. albuterol sulfate 90 mcg/actuation HFA aerosol inhaler 2 inh inhalation Q8H PRN (Reason: shortness of breath or wheezing) Qty: 8.5 3RF albuterol sulfate 1.25 mg/3 mL solution for nebulization 1.25 mg inhalation Q8H PRN (Reason: shortness of breath or wheezing) Qty: 75 1RF isosorbide mononitrate 30 mg tablet extended release 24 hr 30 mg PO BID triamcinolone acetonide 0.1 % ointment 1 applic topical BID PRN (Reason: Rash) pantoprazole [Protonix] 40 mg tablet,delayed release (DR/EC) 40 mg PO DAILY Qty: 30 5RF doxycycline hyclate 100 mg tablet 100 mg PO BID oxycodone-acetaminophen 10-325 mg tablet 1 tab PO Q8H PRN (Reason: Pain) Discharge Orders: Discharge ED (Routine); Ordered 11/11/23 Ordered By: Anu Monaco Referrals: Afia Barrett, LUNCH COOK [Primary Care Provider] - Patient Instructions: Opioid Safety, Pain Management Activity Restrictions/Additional Instructions: As we discussed you can speak to your pain management provider about increasing your current dose of oxycodone as needed for your back discomfort. Please follow-up with Dr. Jennings on 11/17 for further evaluation and treatment options in regards to your multiple back fractures. 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 Lomeli for further evaluation of your COPD. Coding Level of Care Code ED Load Test Mechanic for Dom Casas
--- NOTE | 2023-11-11 11:20 | ECG_ITS ---
[facility] Test Date: 2023-11-11 Pat Name: Angie Naranjo Department: Room: Gender: Female Case Assembler: : 1965 Requested By: Anu Monaco Order Number: [id number] Asa MD: Nery Mann M.D. Measurements Intervals [place] Rate: 79 P: 52 HI: 196 QRS: -1 QRSD: 72 T: 13 QT: 395 QTc: 455 Interpretive Statements SINUS RHYTHM POSSIBLE LEFT ATRIAL ENLARGEMENT [-0.1mV P-WAVE IN V1/V2] LOW QRS VOLTAGE IN PRECORDIAL LEADS [QRS DEFLECTION < 1.0 mV IN CHEST LEADS] SEPTAL MYOCARDIAL INFARCTION , OF INDETERMINATE AGE [40+ ms Q WAVE IN V1/V2] Compared to ECG 10/28/2023 12:13:23 Low QRS voltage now present Myocardial infarct finding now present T-wave abnormality no longer present Electronically Signed On 11-11-2023 18:27:35 CLEANER OPERATOR by Nery Mann M.D. [id number]
--- NOTE | 2023-11-11 11:20 | XRR_ITS ---
PROCEDURE INFORMATION: Exam: XR Left Hip Exam date and time: 11/11/2023 11:27 AM Age: 57 years old Clinical indication: Left hip; Patient HX: --lt hip pain no trauma; Additional info: Pain; One view pelvis too please TECHNIQUE: Imaging protocol: Radiologic exam of the left hip. Views: 2 or 3 views hip with pelvis when performed. Total images: 3 COMPARISON: CT abdomen pelvis wo con [id number] 10/28/2023 12:00 PM FINDINGS: Bones/joints: Unremarkable. No acute fracture. Soft tissues: Unremarkable. XR/XR hip LT 2-3V wo/w pel* [id number] IMPRESSION: No acute findings.
--- NOTE | 2023-11-11 11:20 | XRR_ITS ---
PROCEDURE INFORMATION: Exam: XR Chest Exam date and time: 11/11/2023 11:27 AM Age: 57 years old Clinical indication: Pain; Angina pectoris; Prior surgery; Surgery date: 6+ months; Surgery type: Thyroid; Patient HX: HX of uterine cancer; Additional info: Chest pain TECHNIQUE: Imaging protocol: Radiologic exam of the chest. Views: 1 view. Total images: 3 COMPARISON: CR XR chest 1V portable [id number] 10/28/2023 11:46 AM FINDINGS: Lungs: Trace atelectasis or scar noted in the right mid lung. Pleural spaces: Unremarkable. No pleural effusion. No pneumothorax. Heart/Mediastinum: Upper normal heart size noted. Bones/joints: Diffuse osteopenia noted. XR/XR chest 1V portable [id number] IMPRESSION: Trace atelectasis or scar noted in the right mid lung.
[2023-11-11 11:56] VITALS: RESP 16; O2SAT 97
[2023-11-11] MEDS: morphine 4 mg/mL SDV 1 mL IM (11:56)
[2023-11-11 12:18] LABS: Basophils % 0.3 %; Eosinophils # 0.1 10^3/uL (0.0-0.8); Eosinophils % 0.5 %; Lymphocytes # 1.2 10^3/uL (0.8-4.8); Lymphocytes % 11.8 %; Mean Corpuscular HGB Conc 31.6 g/dL (30-55); Mean Corpuscular Hemoglobin 30.1 pg (27-33); Mean Corpuscular Volume 95.5 fl (85-98); Mean Platelet Volume 9.6 fL (7.4-10.4); Monocytes # 0.5 10^3/uL (0.2-0.9); Monocytes % 5.2 %; Neutrophils # 8.15 10^3/uL (1.8-7.7); Neutrophils % 81.3 %; Nucleated Red Blood Cells % 0.2 %; Platelet Count 292 10^3/cmm (157-399); Red Blood Count 4.71 10^6/uL (3.85-5.65); Red Cell Distribution Width 14.6 % (12.1-15.1); White Blood Count 10.02 10^3/uL (3.29-11.43)
[2023-11-11 12:32] LABS: D Dimer 1.29 ug/mLFEU (0-0.59)
[2023-11-11 12:37] LABS: Troponin(5th) Baseline 13 ng/L (0-10)
[2023-11-11 12:44] LABS: Alanine Aminotransferase 9 U/L (0-33); Alkaline Phosphatase 158 U/L (35-105); Anion Gap 16.5 (5-19); Aspartate Amino Transferase 13 U/L (0-32); Blood Urea Nitrogen 9 mg/dL (6-20); Calcium 9.3 mg/dL (8.5-10.5); Carbon Dioxide 34 mmol/L (22-29); Chloride 92 mmol/L (98-107); Creatinine Clr Calc Pharmacy 63.0517; Globulin 2.4 g/dL (1.3-4.6); Glomerular Filtration Rate 64.1 mL/min (90-130); Glucose 137 mg/dL (65-115); Osmolality Calculated 289 mOsm/kg (285-295); Potassium 3.5 mmol/L (3.5-5.1); Sodium 139 mmol/L (136-145); Total Bilirubin 0.4 mg/dL (0.15-1.2); Total Protein 6.4 g/dL (6.6-8.7)
--- NOTE | 2023-11-11 13:17 | CT_ITS ---
WS: [id number] CTA OF THE CHEST WITH PULMONARY EMBOLISM PROTOCOL TECHNIQUE: High-resolution contrast enhanced CTA of the chest with coronal and sagittal reformatted i mages with pulmonary embolism protocol. MIP images are also reviewed. CLINICAL INFORMATION: sob, elevated ddimer COMPARISON: None. DLP: 403.[address] scans at [facility] use at least one of these dose optimization techniques: automated e xposure control; mA and/or kV adjustment per patient size (includes targeted exams where dose is matc hed to clinical indication); or iterative reconstruction. FINDINGS: Proximal main pulmonary arteries are normal. Normal segmental and subsegmental pulmonary arteries. No evidence of pulmonary embolus. Aortic calcification. Normal caliber thoracic aorta. RIGHT hepatic cy st measuring 2.1 cm cholecystectomy clips. Adrenal glands are normal. Small esophageal hernia. Spleni c artery calcification. Partially visualized LEFT renal cyst. Multiple chronic appearing compression fractures in the mid and lower thoracic spine. No retropulsion . T4-T12 including inferior endplate L1. Lungs are well aerated. No acute pulmonary infiltrates. Subsegmental atelectasis in the lingula. IMPRESSION: 1. No evidence of pulmonary embolus. 2. Lungs are well aerated. No acute pulmonary infiltrates. 3. Small esophageal hiatal hernia. 4. Multiple chronic appearing compression fractures with anterior wedging progressed compared to the prior chest CT 11/07/2022 at T4-T12. Additional inferior endplate L1 compression fracture. No signific ant retropulsion.
--- NOTE | 2023-11-11 13:20 | ECG_ITS ---
[facility] Test Date: 2023-11-11 Pat Name: Angie Naranjo Department: Room: Gender: Female Cigarette Maker: : 1965 Requested By: Anu Monaco Order Number: [id number] Reading MD: Nery Mann M.D. Measurements Intervals [place] Rate: 77 P: 64 FL: 185 QRS: 2 QRSD: 69 T: 30 QT: 369 QTc: 419 Interpretive Statements SINUS RHYTHM POSSIBLE LEFT ATRIAL ENLARGEMENT [-0.1mV P-WAVE IN V1/V2] LOW QRS VOLTAGE IN PRECORDIAL LEADS [QRS DEFLECTION < 1.0 mV IN CHEST LEADS] SEPTAL MYOCARDIAL INFARCTION , OF INDETERMINATE AGE [40+ ms Q WAVE IN V1/V2] Compared to ECG 11/11/2023 10:39:28 No significant changes Electronically Signed On 11-11-2023 18:37:00 GRAVEL HAULER by Nery Mann M.D. [id number]
[2023-11-11] MEDS: methylPREDNISolone sod succ 125 mg/2 mL INJ IVP (14:10)
[2023-11-11] MEDS: diphenhydrAMINE 50 mg/mL SDV 1mL IVP (14:12)
--- NOTE | 2023-11-11 14:15 | PC.PHAR ---
PT HAD HYDROCODONE 5-325 ON HER MEDICATION LIST BUT VERIFIED VERBALLY IT WAS DC'D AND NEW ORDER WAS WRITTEN FOR PERCOCET 10-235. PT HAS NO OTHER PAIN MED ORDERS ON EXT MED LIST. 11/11/23
[2023-11-11 14:25] LABS: Troponin 5 2HR 10.07 ng/L (0-10)
[2023-11-11 14:27] LABS: Troponin 5 2HR Delta -2.93 ABS# (0-10)
[2023-11-11] MEDS: iohexol 350 mg/mL 500 mL Btl (per mL) IV (14:36)
[2023-11-11 14:50] VITALS: BP 138/81; PULSE 78; O2SAT 98
[2023-11-11 16:01] VITALS: BP 145/71; PULSE 79; O2SAT 96
== END 2023-11-11 16:05 | disposition home or self-care (01) ==
PROVIDERS: Emergency Provider Physician Assistant; PCP Nurse Practitioner Family
DX: M25.552 Pain in left hip (principal); J44.9 Chronic obstructive pulmonary disease, unspecified; S32.030D Wedge compression fracture of third lumbar vertebra, subsequent encounter for fracture with routine healing; S32.050D Wedge compression fracture of fifth lumbar vertebra, subsequent encounter for fracture with routine healing; S22.070D Wedge compression fracture of T9-T10 vertebra, subsequent encounter for fracture with routine healing; S22.080D Wedge compression fracture of T11-T12 vertebra, subsequent encounter for fracture with routine healing; Z79.891 Long term (current) use of opiate analgesic; Z79.02 Long term (current) use of antithrombotics/antiplatelets; F17.210 Nicotine dependence, cigarettes, uncomplicated; Z86.73 Personal history of transient ischemic attack (TIA), and cerebral infarction without residual deficits; E78.5 Hyperlipidemia, unspecified; I10 Essential (primary) hypertension; X58.XXXD Exposure to other specified factors, subsequent encounter
CPT/HCPCS: 36415; 71045; 71275; 73502; 80053; 84484; 85025; 85378; 93005; 96372; 96374; 96375; 99285; J1200; J2270; J2930; Q9967

== ENCOUNTER → 2023-11-18 10:25 | Outpatient (BNVA) | payer OTHER, MEDICAID, SELFPAY | PROVIDERS: PCP Nurse Practitioner Family; Visit Provider Orthopaedic Surgery | DX: M54.50 Low back pain, unspecified (principal); M48.062 Spinal stenosis, lumbar region with neurogenic claudication; M54.9 Dorsalgia, unspecified | CPT/HCPCS: 72100; 99204 ==

== ENCOUNTER 2023-12-26 09:17 | Outpatient (CLI) | payer MEDICARE, OTHER, MEDICAID, SELFPAY ==
--- NOTE | 2023-12-26 09:30 | MR_ITS ---
WS: [id number] MRI LUMBAR SPINE NONCONTRAST HISTORY: Back Pain COMPARISON: Lumbar spine radiograph 11/18/2023. TECHNIQUE: Sagittal and axial multisequence imaging is submitted. Mild increase in the lumbar lordosis. Posterior alignment is normal otherwise. Marrow edema indicating acute fractures noted involving the inferior endplate of L1, superior endplat e of L2 and superior endplate of L4. Remote mild compression fracture L5. Conus terminates normally at L1-2 disc level. L1-L2: Mild osteophytic ridging. Facet joint arthritis. Mild bilateral subarticular recess and forami nal stenosis. L2-L3: Mild annular disc bulging, ligamentum flavum and facet disease. Mild encroachment upon the bobby tral thecal sac and subarticular recesses. Mild foraminal stenosis. L3-L4: Mild annular disc bulging with ligamentum flavum and facet arthritis. Mild central, bilateral subarticular recess and foraminal stenosis. L4-L5: Mild annular disc bulging with encroachment upon the subarticular recesses and foramina. Moder ate ligamentum flavum and facet arthritis. Mild central stenosis. Moderate bilateral subarticular rec ess and foraminal stenosis. L5-S1: Mild annular disc bulging with moderate bilateral foraminal stenosis. Mild disc contact on the exiting L5 nerve roots. LEFT renal cyst 2.2 cm. Diffuse muscle atrophy. IMPRESSION: 1. Numerous osteoporotic compression fractures in the lumbar spine. Acute compression fractures at L 1, L2 and L4. Chronic compression fracture L5. No retropulsion. 2. Multilevel subarticular recess and foraminal encroachment as above. No high-grade central stenosi s. 3. Moderate bilateral subarticular recess stenosis at L4-5 and L5-S1. 4. Mild central, bilateral subarticular recess and foraminal stenosis at L3-4.
--- NOTE | 2023-12-26 10:15 | MR_ITS ---
WS: [id number] MRI THORACIC SPINE noncontrast HISTORY: Back Pain COMPARISON: Chest CT 11/11/2023 TECHNIQUE: Multiplanar sequences are performed in sagittal and axial planes. Numerous osteoporotic compression fractures are identified throughout the thoracic spine. There is al so diffuse osteopenia and heterogeneity within the vertebral bodies. Chronic compression deformities in T4, T5 and T6. Acute compression fractures containing marrow edema involving T7, T8, T9, T10, T11, T12, L1 and L2. Compression fractures are estimated at less than 50%. No retropulsion. Multilevel central disc protrusions contacting the cord, T5-6, T6-7, T7-8 and T11-12. No high-grade c ord compression. No signal abnormality within the cord. Facet joint arthritis is mild throughout. Paravertebral soft tissues are negative. IMPRESSION: 1. Numerous osteoporotic compression fractures throughout the thoracic and upper lumbar spine. Chron ic and acute fractures. 2. Acute compression fractures from T7-L2. No retropulsion. 3. More chronic appearing compression fractures at T4, T5 and T6. 4. Small central disc protrusion contacting the thoracic cord at T5-6, T6-7, T7-8 and T11-12.
== END 2023-12-26 09:18 | disposition home or self-care (01) ==
LOC: RAD 09:19
PROVIDERS: PCP Nurse Practitioner Family; Visit Provider Orthopaedic Surgery
DX: M51.24 Other intervertebral disc displacement, thoracic region (principal); M48.061 Spinal stenosis, lumbar region without neurogenic claudication; M48.56XD Collapsed vertebra, not elsewhere classified, lumbar region, subsequent encounter for fracture with routine healing; X58.XXXD Exposure to other specified factors, subsequent encounter; M48.52XD Collapsed vertebra, not elsewhere classified, cervical region, subsequent encounter for fracture with routine healing
CPT/HCPCS: 72146; 72148

== ENCOUNTER → 2024-01-22 08:36 | Outpatient (BNVA) | payer MEDICARE, MEDICAID, SELFPAY | PROVIDERS: PCP Nurse Practitioner Family; Visit Provider Orthopaedic Surgery | DX: M48.062 Spinal stenosis, lumbar region with neurogenic claudication (principal); M54.2 Cervicalgia | CPT/HCPCS: 80053; 81001; 85025; 99214 ==

== ENCOUNTER → 2024-01-29 11:18 | Outpatient (BNVA) | payer MEDICARE, MEDICAID, SELFPAY | PROVIDERS: PCP Nurse Practitioner Family; Referring Provider Nurse Practitioner Family; Visit Provider Internal Medicine Cardiovascular Disease | DX: R07.9 Chest pain, unspecified (principal); R07.89 Other chest pain; I25.10 Atherosclerotic heart disease of native coronary artery without angina pectoris; E78.2 Mixed hyperlipidemia; I34.0 Nonrheumatic mitral (valve) insufficiency; I10 Essential (primary) hypertension; F17.200 Nicotine dependence, unspecified, uncomplicated; F17.210 Nicotine dependence, cigarettes, uncomplicated | CPT/HCPCS: 93005; 99215 ==

== ENCOUNTER 2024-02-17 10:00 | Outpatient (CLI) | payer MEDICARE, MEDICAID, SELFPAY ==
--- NOTE | 2024-02-17 10:15 | MR_ITS ---
WS: [id number] MRI CERVICAL SPINE NONCONTRAST HISTORY: neck pain COMPARISON: Prior MRI thoracic spine 12/26/2023. Technique: Multiplanar, multisequence noncontrast imaging of the cervical spine. Technically very limited evaluation of the cervical spine. Patient was unable to hold still for this examination and continue to cough throughout the exam. Straightening and slight reversal of the normal cervical lordosis. Reversal is slight at C5-6. Disc s paces are narrowed and desiccated. There is a small amount of marrow edema along the superior endplat e of T1 which may represent a mild acute compression fracture. Signal within the cervical cord is normal. Visualized posterior fossa is unremarkable. Craniocervical junction, C1 and C2 relationship, odontoid process and soft tissues are normal. C2-C3: Normal. C3-C4: Mild osteophytic ridging and annular disc bulging encroaching upon the ventral thecal sac. The re is at least mild central stenosis. Suspect mild to moderate foraminal stenosis but the foramina ar e poorly visualized. C4-C5: No definite central stenosis. Mild foraminal stenosis. C5-C6: Osteophytic ridging and annular disc bulging. Effacement of ventral CSF. There is at least mil d with moderate foraminal stenosis. C6-C7: Osteophytic ridging with annular disc bulging. Mild central and probably at least mild to mode rate foraminal stenosis. C7-T1: Poorly visualized. Nondiagnostic evaluation of the paraspinal soft tissues due to motion. MR/MR cervical spin wo con* [id number] IMPRESSION: 1. This study is significantly compromised by patient motion and coughing thro ughout the examination. 2. Multilevel areas of stenosis. Probably the most significant at C5-6. 3. Effacement of CSF at C5-6 with at least mild central with mild to moderate foraminal stenosis. 4. C3-4 and C6-7: Mild central with mild to moderate foraminal stenosis likely . 5. Mild anterior wedging of T1 by 10% with edema consistent with acute to suba cute fracture. Appears new since 12/26/2023.
== END 2024-02-17 10:01 | disposition home or self-care (01) ==
LOC: RAD 10:00
PROVIDERS: PCP Nurse Practitioner Family; Visit Provider Orthopaedic Surgery
DX: M99.61 Osseous and subluxation stenosis of intervertebral foramina of cervical region (principal); M25.78 Osteophyte, vertebrae; M50.322 Other cervical disc degeneration at C5-C6 level; M50.223 Other cervical disc displacement at C6-C7 level
CPT/HCPCS: 72141

== ENCOUNTER 2024-02-18 10:12 | Outpatient (CLI) | payer MEDICARE, MEDICAID, SELFPAY ==
[2024-02-18 10:55] VITALS: BMI 29.8
--- NOTE | 2024-02-18 11:03 | ECG_ITS ---
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 Interpretive Statements NAME OF STUDY: LEXISCAN SESTAMIBI STRESS TEST INDICATION: Chest Pain, PROCEDURE: At the baseline, the EKG revealed normal sinus rhythm with a poor R wave progression. Some nonspecific ST changes. The baseline heart was 82 bpm with a blood pressue of 170/66 mm of Hg Lexiscan was infused over a period of 20 seconds. A total of 0.4 milligrams of Lexiscan was infused. The stress phase was continued for a total of 5 minutes. Heart rate at the end of the stress phase was 99 bpm with a blood pressure 167/70 mm of Hg. The EKG at the peak infusion revealed no significant changes. Sestamibi was injected 20 seconds after the Lexiscan infusion. Heart rate at the end of the recovery phase was 88 bpm with a blood pressure of 160/77 mm of Hg. CONCLUSION: 1. No significant EKG changes with the LexiScan infusion 2. No LexiScan induced chest pain or cardiac arrhythmia 3. Normal blood pressure and heart rate response 4. Sestamibi/sestamibi perfusion scan pending; see separate report. Electronically Signed On 02-20-2024 19:48:27 CDT by Nery Mann M.D. [id number]
--- NOTE | 2024-02-18 11:04 | NMCV_ITS ---
NM oni perf SPECT r/s* [id number] Angie Naranjo Age: 58 Gender: F : 1965 Exam Date: 02/18/2024 11:04 Ordering Phys: Nery Mann MD ([email or web address]) Technologist: ROAMN Thurston Exam Location: [facility] Indications: SOB, CP STRESS TEST Please [facility] for [facility] IMAGE PROTOCOL Rest/Stress 1 Lexiscan Day Radiopharmaceutical Dose (mCi) Administration Site Administered by Rest: Tc-99m 10.7 IV ROMAN Thurston Sestamibi Stress:Tc-99m 32.7 IV ROMAN Thurston Sestamibi Rest: 18-Feb-2024 60 Discovery 630 Stress: 18-Feb-2024 30 Discovery 630 0.4mg Lexiscan. Supine position only as patient was unable to lay prone. SPECT RESULTS Technical Quality: Good Raw Data Analysis: Breast attenuation Image Corrections: No attenuation or motion correction applied Summed Stress Score: 0 Summed Rest Score: 0 Summed Difference Score: 0 PERFUSION FINDINGS Uniform myocardial tracer uptake with no significant perfusion abnormalities FUNCTIONAL RESULTS (calculated via Gated SPECT) Stress Image LV EF (%): 70 Stress EDV (mL):67 TID: 0.88 Stress ESV (mL):20 FUNCTIONAL FINDINGS: Segmental wall motion analysis revealing no gross wall motion abnormalities IMPRESSIONS 1. Myocardial perfusion imaging revealing uniform myocardial tracer uptake 2. Normal LV ejection fraction of 70%. 3. LV wall motion analysis revealing no gross wall motion abnormalities. 4. Normal LV volume Low probability for coronary ischemia, based on the above findings No similar previous studies are available for comparison Dr Nery Mann MD FACC (Electronically Signed) Final Date: 19 February 2024 08:27 S
[2024-02-18] MEDS: regadenoson 0.4 Mg/5 ml Syringe 0.400000000000000022 MG IVP (11:50)
[2024-02-18] MEDS: aminophylline 25 mg/mL SDV 10 mL IVP ×2 (11:59→12:03)
[2024-02-18 12:15] VITALS: BP 160/77; PULSE 85
== END 2024-02-18 10:13 | disposition home or self-care (01) ==
PROVIDERS: PCP Nurse Practitioner Family; Visit Provider Internal Medicine Cardiovascular Disease
DX: Z98.61 Coronary angioplasty status (principal); R94.39 Abnormal result of other cardiovascular function study
CPT/HCPCS: 36415; 78452; 93017; 96374; A9500; J0280; J2785

== ENCOUNTER 2024-03-05 06:35 | Day surgery (SDC) | payer MEDICARE, MEDICAID, SELFPAY ==
[2024-03-05] VITALS (13 sets, daily range): BP systolic 108–154; BP diastolic 73–93; PULSE 74–89; RESP 16–22; TEMP 36.1–37.1; O2SAT 95–100; BMI 29.8
--- NOTE | 2024-03-05 06:41 | SC_ITS ---
WS: [id number] EXAMINATION: C-arm FL for Kyphoplasty ORDER DATE: 03/05/2024 6:41 AM REASON FOR EXAM: Surgery COMPARISON: None available. FLUOROSCOPY TIME: 181 seconds. # OF SPOT FILMS: 4 FINDINGS: Barium impregnated methylmethacrylate within the L1, L2, and L4 vertebral bodies. No significant extravasation. SC/C-arm FL for Kyphoplasty IMPRESSION: Vertebroplasty as above.
[2024-03-05] MEDS: sodium chloride 0.9% 1,000 ML 30 ML IV (07:09)
[2024-03-05] MEDS: fentaNYL 50 mcg/mL INJ 2mL IVP (07:54)
--- NOTE | 2024-03-05 07:58 | ANES.PREANE2 ---
Pre-Anesthetic Assessment Height/Weight: Height 1.55 m Weight 71.668 kg Temp Pulse Resp BP Pulse Ox O2 Del Method O2 Flow Rate 97.0 F L 89 16 154/92 98 Nasal Cannula 3 03/05/24 07:01 03/05/24 07:01 03/05/24 07:54 03/05/24 07:01 03/05/24 07:54 03/05/24 07:01 03/05/24 07:01 Preop Diagnosis: L1-L2 L4 wedge osteoporotic compression fractures Operation Date: 03/05/24 08:00 Proposed Procedures p Kyphoplasty L 1,2,4(Not Applicable) - Kelvin Jennings, DO Familial anesthetic complications: None Was Beta Roxy taken within 24 hours: N/A Was Clonidine taken within 24 hours: N/A Last intake: Intake Last Liquid Date 03/04/24 Last Liquid Time 23:20 Last Solid Date 03/04/24 Last Solid Time 19:00 Social Tobacco and No alcohol Exam alert, oriented x 3, clear to auscultation bilaterally and regular rate & rhythm Airway Mallampati: Class IV Dentition: false Pulmonary Chronic Obstructive Pulmonary Disease (3 L NC prn w/ activity - O2 sats usually low 90s) CV/HEM Moderate AVR CAD GI Gastroesophageal Reflux Disease Metabolic Thyroid Disease [facility] Fibromyalgia Anesthetic Plan ASA status: 4 Anesthesia: General Risk of > 500 ml blood loss (7ml/kg in children): No Other Pertinent Information Chronic prednisone use Medications/Allergies Home Medications Medication Instructions Recorded Confirmed Last Taken Type carvedilol 25 mg tablet 25 mg PO BID #60 tabs 12/05/20 03/05/24 03/05/24 Rx Nebulizer machine #1 ea 12/06/20 02/06/24 09/18/23 Rx levothyroxine 100 mcg tablet 100 mcg PO DAILY #90 tabs 12/15/20 03/05/24 03/05/24 Rx hydroxyzine HCl 25 mg tablet 25 mg PO QID PRN anxiety #120 tabs 01/17/21 03/05/24 03/04/24 Rx clonidine HCl 0.1 mg tablet 0.1 mg PO DAILY PRN hypertensive 03/06/21 03/05/24 03/04/24 Rx emergency #90 tabs fluoxetine 20 mg capsule (Prozac) 20 mg PO DAILY 01/04/22 03/05/24 03/04/24 History cholecalciferol (vitamin D3) 50 2,000 unit PO DAILY #30 tabs 01/29/22 03/05/24 03/04/24 Rx mcg (2,000 unit) tablet clopidogrel 75 mg tablet 75 mg PO DAILY 02/03/22 03/05/24 02/26/24 History albuterol sulfate 1.25 mg/3 mL 1.25 mg (3 mL) inhalation Q8H PRN 02/06/22 03/05/24 03/03/24 Rx solution for nebulization shortness of breath or wheezing #75 mL albuterol sulfate 90 mcg/actuation 2 inh inhalation Q8H PRN shortness 02/06/22 03/05/24 03/04/24 Rx aerosol inhaler of breath or wheezing #8.5 grams atorvastatin 40 mg tablet 40 mg PO QPM 08/23/22 03/05/24 03/04/24 History vitamin E 268 mg (400 unit) capsule 268 mg PO DAILY 08/23/22 03/05/24 03/04/24 History cyclobenzaprine 10 mg tablet 10 mg PO BID 10/10/22 03/05/24 11/11/23 History potassium chloride 20 mEq 20 meq PO .COMPLEX #45 tabs 10/10/22 03/05/24 03/04/24 Rx tablet,extended release topiramate 25 mg tablet 25 mg PO BID 10/10/22 03/05/24 03/04/24 History guaifenesin 600 mg tablet, 600 mg PO BID 10/16/22 03/05/24 11/11/23 History extended release 12 hr fluticasone fur. 100 mcg-umeclid 1 inh inhalation DAILY #60 ea 05/05/23 03/05/24 03/04/24 Rx 62.5 mcg-vilant 25 mcg inhalat.powder (Trelegy Ellipta) furosemide 20 mg tablet (Lasix) 20 mg PO DIRECTED 05/06/23 03/05/24 03/04/24 History nitroglycerin 0.4 mg sublingual 0.4 mg sublingual Q5M PRN chest 05/06/23 03/05/24 09/05/23 Rx tablet pain #30 tabs triamcinolone acetonide 0.1 % 1 applic topical BID PRN Rash 09/17/23 03/05/24 Unknown History topical ointment pantoprazole 40 mg tablet,delayed 40 mg PO DAILY #30 tabs 09/19/23 03/05/24 03/05/24 Rx release (Protonix) folic acid 1 mg tablet 1 mg PO DAILY #30 tabs 10/22/23 03/05/24 03/04/24 Rx methotrexate sodium 2.5 mg tablet 20 mg (8 x 2.5 mg) PO .Q7days #40 10/22/23 03/05/24 03/02/24 Rx tabs prednisone 10 mg tablet 10 mg PO DAILY #90 tabs 10/22/23 03/05/24 03/04/24 Rx oxycodone-acetaminophen 10 mg-325 1 tab PO Q8H PRN Pain 11/11/23 03/05/24 03/04/24 History mg tablet isosorbide mononitrate 30 mg 30 mg PO BID #90 tabs 11/21/23 03/05/24 03/04/24 Rx tablet,extended release 24 hr secukinumab 150 mg/mL subcutaneous 300 mg (2 mL) SUBCUT .[id number] #2 mL 12/16/23 03/05/24 03/03/24 Rx pen injector (Cosentyx Pen 300 mg/2 Pens () verapamil 180 mg 24 hr 180 mg PO DAILY #90 caps 02/25/24 03/05/24 03/03/24 Rx capsule,extended release Allergies Allergy/AdvReac Type Severity Reaction Status Date / Time sertraline [From Zoloft] Allergy Unknown Unknown Verified 02/06/24 09:30 aspirin Allergy Unknown Verified 02/06/24 09:30 buspirone [From BuSpar] Allergy Unknown Verified 02/06/24 09:30 codeine Allergy Unknown Verified 02/06/24 09:30 diltiazem Allergy Unknown Verified 02/06/24 09:30 duloxetine Allergy Unknown Verified 02/06/24 09:30 gabapentin [From Neurontin] Allergy Unknown Verified 02/06/24 09:30 ibuprofen Allergy UNKNOWN Verified 02/06/24 09:30 iodine Allergy Unknown Verified 02/06/24 09:30 ketorolac [From Toradol] Allergy UNKNOWN Verified 02/06/24 09:30 lisinopril Allergy Unknown Verified 02/06/24 09:30 Penicillins Allergy Unknown Verified 02/06/24 09:30 pregabalin [Lyrica] Allergy Unknown Verified 02/06/24 09:30 Sulfa (Sulfonamide Allergy Unknown Verified 02/06/24 09:30 Antibiotics) tizanidine Allergy Unknown Verified 02/06/24 09:30 tramadol Allergy Unknown Verified 02/06/24 09:30 varenicline [From Chantix] Allergy UNKNOWN Verified 02/06/24 09:30 venlafaxine Allergy Unknown Verified 02/06/24 09:30 Current Medications Generic Name Dose Route Start Last Admin Trade Name Freq PRN Reason Stop Dose Admin Fentanyl 50 mcg 03/05/24 06:41 03/05/24 07:54 Fentanyl 50 Mcg/Ml Inj 2ml IVP 25 mcg Q10M PRN Administration Preop Pain Sodium Chloride 1,000 mls @ 30 mls/hr 03/05/24 06:45 03/05/24 07:09 Sodium Chloride 0.9% IV 03/06/24 06:44 30 mls/hr .Q24H AKUA Administration PFSH Anesthesia Medical History Pneumonia Psoriatic arthritis Compression fracture Acute respiratory failure with hypoxia Community acquired pneumonia Facial swelling Ischemic stroke Respiratory failure Anxiety Bereavement counseling Immunization counseling High risk medication use Depression with anxiety Aortic regurgitation Hypothyroidism GERD without esophagitis Intermittent palpitations Hyperlipidemia Seronegative rheumatoid arthritis Essential (primary) hypertension Eczema Inflammatory arthritis Fibromyalgia Polyarticular psoriatic arthritis Surgical History H/O esophagogastroduodenoscopy (11/07/20) H/O breast biopsy Status post colonoscopy (11/07/20) H/O thyroidectomy Hx of cholecystectomy History of tonsillectomy Family History Mother Rheumatoid arthritis Father Rheumatoid arthritis Leukemia Denies family history of Lupus Social History Smoking and tobacco/nicotine status: current every day tobacco/nicotine user cigarettes Packs smoked per day: 0.25 Years cigarettes smoked: 25 [ Other cigarette details: 2ppd x 25 years, currently trying to quit] Second hand smoke exposure: Yes Alcohol intake: never Substance/Drug Use: never Marital status: Current occupational status: disabled Current gender identity: Female Data Anesthesia Cardiac Studies: Echocardiogram 05/30/23 Echocardiogram Ultrasound 09/03/20 Sestamibi Stress Test (Cardiology) 02/18/24 Holter Monitor 09/14/19
--- NOTE | 2024-03-05 07:58 | W.PM.OPSUD ---
Surgery/Procedure H&P Update DATE OF PROCEDURE: March 05, 2024 DATE H&P PERFORMED: 02/06/24 H&P UPDATE INFORMATION: I have reviewed H&P completed within last 30 days, I have examined patient prior to procedure and No changes to prior documentation PREOP DIAGNOSIS: L1-L2 L4 wedge osteoporotic compression fractures PLANNED PROCEDURE: Operation Date: 03/05/24 08:00 Proposed Procedures p Kyphoplasty L 1,2,4(Not Applicable) - Kelvin Jennings DO
[2024-03-05] MEDS: clindamycin 600 MG/50 ML PREMIX 100 MG IV (07:59)
[2024-03-05] MEDS: lidocaine-epi 1% 20 mL INJ INJECTION (08:32)
--- NOTE | 2024-03-05 09:23 | PM.OP ---
Operative Report Date of procedure: March 05, 2024 Pre-op diagnosis: Osteoporotic wedge traumatic compression fractures of L1, L2 and L4 Post-op diagnosis: same Procedure done: 1. L1 kyphoplasty 2. L2 kyphoplasty 3. L4 kyphoplasty Surgeon: Kelvin Jennings DO Estimated blood loss (mL): 5 Procedure: 1. L1 kyphoplasty 2. L2 kyphoplasty 3. L4 kyphoplasty Patient brought the op suite after undergoing anesthesia placed in the prone position. All areas impingement well-padded. Patient's prepped draped also fashion. Skin incision was made over the L4 pedicle. The skin incision made over the left and the right pedicle. The awl was inserted and then the drill was inserted and then the balloon was inserted. This was done on the right side as well. Followed on biplanar fluoroscopy. Once the cement was felt to hold the vertebrae cement was hardened and then tubes were pulled. And then x-ray taken showed that the L4 vertebra is in good position. Next tension was brought to the L1 and L2 level. Incision made on both the right and left side for the L1 vertebrae. The awl was inserted followed by the drill followed by balloons bilaterally. Next tension was brought to the L to left pedicle. Skin incision made the awl was inserted was able to get in the center of the vertebrae. Balloon was inserted and inflated in the center of the vertebrae. Once cement was placed in both the L1 and L2 vertebrae. Once the cement was felt to be completely full the tubes were pulled AP lateral fluoroscopy ensured that the cement was in good position. Wounds were irrigated and closed with nylon suture.
[2024-03-05] MEDS: albuterol 2.5 mg/3 mL Neb INHALATION (09:38)
[2024-03-05] MEDS: oxyCODONE-APAP 10-325 mg Tablet 1 TAB PO (09:56)
--- NOTE | 2024-03-05 10:40 | ANE.PACU2 ---
Inpatient post-anesthesia follow up: Airway intact: Yes Vital signs: Temperature 98.5 F Pulse Rate 78 Respiratory Rate 18 Blood Pressure 135/84 Pulse Oximetry 98 Oxygen Delivery Me thod Nasal Cannula Oxygen Flow Rate 3 Fraction of Inspir ed Oxygen Hydration adequate: Yes Nausea and vomiting: No Pain level: 1 Mental status: Baseline
== END 2024-03-05 10:41 | disposition home or self-care (01) ==
PROVIDERS: PCP Nurse Practitioner Family; Visit Provider Orthopaedic Surgery
PROC: (CPT 22514; principal; 2024-03-05 08:00)
DX: S32.010A Wedge compression fracture of first lumbar vertebra, initial encounter for closed fracture (principal); S32.020A Wedge compression fracture of second lumbar vertebra, initial encounter for closed fracture; S32.040A Wedge compression fracture of fourth lumbar vertebra, initial encounter for closed fracture; J44.9 Chronic obstructive pulmonary disease, unspecified; Z99.81 Dependence on supplemental oxygen; I25.10 Atherosclerotic heart disease of native coronary artery without angina pectoris; K21.9 Gastro-esophageal reflux disease without esophagitis; M79.7 Fibromyalgia; E03.9 Hypothyroidism, unspecified; I10 Essential (primary) hypertension; F17.210 Nicotine dependence, cigarettes, uncomplicated
CPT/HCPCS: 22514; 22515 ×2; 76000; J0131; J1720; J2371; J2405; J2704; J3010; J3490; J3535; J7030; J7613

== ENCOUNTER → 2024-04-29 10:30 | Outpatient (BNVA) | payer MEDICARE, MEDICAID, SELFPAY | PROVIDERS: PCP Nurse Practitioner Family; Visit Provider Nurse Practitioner Family | DX: I25.118 Atherosclerotic heart disease of native coronary artery with other forms of angina pectoris (principal); I10 Essential (primary) hypertension; F17.210 Nicotine dependence, cigarettes, uncomplicated | CPT/HCPCS: 99214 ==

== ENCOUNTER 2024-05-18 08:04 | Observation (INO) | payer MEDICARE, MEDICAID, SELFPAY ==
[2024-05-18] VITALS (36 sets, daily range): BP systolic 116–159; BP diastolic 75–103; PULSE 80–96; RESP 13–29; TEMP 35.9–36.9; O2SAT 94–98; BMI 29.6; BMI 31.2
--- NOTE | 2024-05-18 07:00 | XACV_ITS ---
Exam Room: 2 Ht: 155 cm Wt: 71 kg BSA: 1.78 m2 Gender: Female : 1965 Any Known Allergies: Other Exam Priority: Routine Procedure(s): Procedure Description: Diagnostic procedure Procedure Description: Left Heart Catheterization Procedure Description: Coronary Angiography Johnathan CHOPRA; Diagnostic Cath Status: Elective Diagnostic Findings * Left main is a medium caliber vessel with no significant stenotic lesions. * The left anterior descending artery is a medium caliber vessel which appears to wraparound the LV apex minimally. The mid LAD was found to have mild diffuse calcification. There is a long segment in the mid LAD which was found to have extrinsic compression, suggesting myocardial bridge. The artery gives off 2 diagonal branches proximally which were found to have no significant stenotic lesions.. * The left circumflex artery is a medium caliber nondominant vessel with no significant stenotic lesions. * The right coronary artery is a medium caliber dominant vessel which was found to have mild diffuse Regularities in the proximal and distal segments. The PLV branch was found to have minimal intimal irregularities as well. Conclusions 1. 58-year-old white female with severe COPD, dependency, multiple risk factors for atherosclerotic heart disease, presenting with increasing episodes of chest pain and shortness of breath. Her Myocardial perfusion imaging was unremarkable. However in view of her ongoing worsening of the symptoms, in order to further evaluate the coronary status, a repeat the cardiac catheterization was recommended. The patient underwent left heart catheterization with a left and right coronary angiogram today. The findings are as follows. 2. 1. Normal left main. 2. Long segment of the mid LAD with extrinsic compression suggestive of myocardial bridge.3. No significant stenotic lesions in the circumflex artery.4, mild diffuse disease in the right coronary artery. LVEDP of 20 mmHg. Diagnostic RX Recommendation: medical therapy and/or counseling LV EDP: 20 mmHg Left Ventriculography Findings: * LV gram was not performed because of the frequent arrhythmias with the LV catheter. The LVEDP was 20 mmHg.. Pressures Phase:Rest AO : 188 / 95 ( 133 ) @ 6:05:00 PM 175 / 88 ( 128 ) @ 6:11:00 PM 175 / 88 ( 128 ) @ 6:11:00 PM LV : 178 / -1 / 25 @ 6:10:00 PM 171 / 0 / 20 @ 6:11:00 PM Valves Phase:DefaultPhase AV : 0.0 @ 5:15:03 PM Clinical Evaluation EBL: 5mL-10mL Procedural Details Pre-Procedure Time Out. Identified patient by full name and date of as verbalized by the patient/guarantor. Does the consent match the physician's order: Yes. Accurate & Complete Informed Consent: Yes. Inpatient/Outpatient History & Physical on Chart: Yes. If H&P is completed, is and addenduem needed: Yes; If yes, is the addendum complete: N/A. Visualize and Verify Site with Patient/Guarantor: N/A. Relevant Radiology Images available: N/A. Pre-op teaching completed and patient verbalized understanding. The risks, benefits, and alternatives of sedation and/or procedure were discussed by physician. The patient agrees to continue. Procedure started. [facility] Clinical Fraility Score: 6: Moderately Frail. Transcription Manager Indications: Worsening Angina. Chest Pain Symptom Assessment: Typical Angina Symptoms. Correct patient, site and procedure confirmed by cath team. Current diagnosis: Chest Pain. PERRLA. 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 Lungs clear x 5 lobes. IV Site on Arrival: 20 gauge in the right anticubital. IV Fluids: 0.9% NaCl at 75ml/hr. 400 mL infused prior to rn lab. Pre Procedural Pulses: bilateral radial was 3+. Pre Procedural Pulses: bilateral posterior tibial was 2+. Pre Procedural Pulses: bilateral dorsalis pedis was 2+. Oxygen started at 3liters/min via nasal canula. right radial was prepped with chloroprep then draped in the usual sterile fashion. right groin was prepped with chloroprep then draped in the usual sterile fashion. Physician notified. Baseline sample Acquired. HR: 83 BPM. Admit Source: Out Patient. Physician arrived. Physician scrubbed in. Immediate Pre-Procedure Time Out. Correct Patient: Yes; Correct Procedure: Yes; Correct Site: Yes; Correct Patient Position: Yes; Correct Supplies: Yes; Dried Flammable Prep: Yes; Blood Products Available: No;. Lidocaine 1% infiltrated to the right radial. Arterial access obtained. A 5 mongolian Sudheer catheter in over wire. Multiple views taken of left coronary artery. Catheter redirected to the RCA. Catheter removed over the exchange wire. A 5 mongolian JR4 catheter in over wire. Multiple views taken of right coronary artery. Catheter removed over the exchange wire. A 5 mongolian Angled Pig catheter in over wire. EDP Sample taken: LV 178/-2,25; HR: 113 BPM; SpO2: 98%. Pullback taken: LV 171/0,20; AO 175/88(128); Mean: , Peak to Peak: 0mmHg, SEP: ; HR: 109 BPM; SpO2: 98%. Catheter removed over the exchange wire. PERRLA. 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 No VTE prophylaxis required. Medication's Wasted: Lidocaine 1% = 18 mL. Medication's Wasted: Nitro = 49.8 mg. Medication's Wasted: Heparin = 2000 unit. Total IV fluids: 61 mL. Post-op diagnosis: Mild CAD, Myocardial bridge. Complications: None. Estimated blood loss: 5mL-10mL. Responsiveness - Normal response to verbal stimuli; alert and oriented, PERRLA. Airway - Unaffected, no intervention required; spontaneous ventilation. Circulation: W/N/L, pulses unchanged. Nausea/Vomiting: No. A TR Band was successful obtaining hemostatsis at the Right Radial artery insertion site. Procedure completed. Patient transferred by bed to 1st floor. Vital chart was stopped. Access Site Site: Right Radial artery Sheath Size: 6 Fr Hemostasis Method: TR Band Hemostasis Success: Successful Procedure Medications Start: 4:43 PM Stop: 4:43 PM Medication: Versed Amount: 1 mg Route: I.V. Start: 4:43 PM Stop: 4:43 PM Medication: Fentanyl Amount: 50 mcg Route: I.V. Start: 4:46 PM Stop: 4:46 PM Medication: Solu-Medrol (methylprednisolone) Amount: 60 mg Route: I.V. Start: 4:49 PM Stop: 4:49 PM Medication: Versed Amount: 1 mg Route: I.V. Start: 4:49 PM Stop: 4:49 PM Medication: Fentanyl Amount: 50 mcg Route: I.V. Start: 4:54 PM Stop: 4:54 PM Medication: Nitrogylcerin Amount: 200 mcg Route: I.A. Start: 5:12 PM Stop: 5:12 PM Medication: Heparin Amount: 4000 units Route: I.V. I, the attending physician, have reviewed and verified all procedure medications. Yes, all medications given per verbal order History/Risk Factors Hypertension: Yes Dyslipidemia: Yes Peripheral Arterial Disease (PAD): No Myocardial Infarction (OR): No Obesity: No Renal Disease: No Tobacco Use: Current/Recent(w/in 1 year) Prior Interventions PCI: No CABG: No Valve Surgery: No Report Signatures Finalized by Dr Nery Mann MD [facility] on 05/19/2024 10:53 PM
[2024-05-18 07:19] LABS: Basophils % 0.2 %; Eosinophils # 0.2 10^3/uL (0.0-0.8); Eosinophils % 1.1 %; Hematocrit 45.7 % (36-47); Lymphocytes # 2.7 10^3/uL (0.8-4.8); Mean Corpuscular HGB Conc 30.9 g/dL (30-55); Mean Corpuscular Hemoglobin 30.8 pg (27-33); Mean Corpuscular Volume 99.8 fl (85-98); Mean Platelet Volume 9.4 fL (7.4-10.4); Monocytes # 1.6 10^3/uL (0.2-0.9); Monocytes % 10.4 %; Neutrophils # 10.54 10^3/uL (1.8-7.7); Neutrophils % 69.6 %; Nucleated Red Blood Cells % 0 %; Platelet Count 302 10^3/cmm (157-399); Red Blood Count 4.58 10^6/uL (3.85-5.65); Red Cell Distribution Width 13.5 % (12.1-15.1); White Blood Count 15.13 10^3/uL (3.29-11.43)
[2024-05-18 07:35] LABS: Anion Gap 11.5 (5-19); Blood Urea Nitrogen 6 mg/dL (8-23); Calcium 9.5 mg/dL (8.5-10.5); Carbon Dioxide 39 mmol/L (22-29); Chloride 94 mmol/L (98-107); Glomerular Filtration Rate 73.2 mL/min (90-130); Glucose 158 mg/dL (65-115); Osmolality Calculated 295 mOsm/kg (285-295); Sodium 142 mmol/L (136-145)
[2024-05-18 07:44] LABS: Potassium 2.5 mmol/L (3.5-5.1)
--- NOTE | 2024-05-18 08:06 | P.HP_ITS ---
Providers/Chief Complaint 2 Admitting Physician: REI Mann MD Primary Care Provider: Afia Barrett NP Chief Complaint: I25.118 History of Present Illness Angie Naranjo is a 58 year old female who came to this hospital for a scheduled cardiac cauterization as an outpatient. The preprocedure labs revealed potassium of 2.5. She is admitted to the hospital for potassium supplement and possible cardiac elevation later on. This patient has been complaining of shortness of breath-mostly dyspnea on exertion and frequent episodes of chest pain. She has a history of hypertension, dyslipidemia and mild coronary artery disease by previous angiogram. She is complaining of chest pain for the last 3 months. She has been having episodes of chest pain almost every other day. She has episodes lasting usually for 2 to 3 minutes and then subside spontaneously or with 1 sublingual nitro. She has been feeling tired and weak all the time. She had fracture of the lower thoracic spines 3 months ago and has been bedridden for a while. Currently she moves around in the wheelchair. She has been having easy fatigability and shortness of breath. She is on 24-hour oxygen, 3 L/min by nasal cannula. he has no definite precipitating factors for the chest pain. No other associated symptoms or radiation of pain. Patient has a history of hypertension , mild to moderate aortic regurgitation by echocardiogram in October 2016. She had a cardiac catheterization in 2015 in [place] and was found to have mild diffuse coronary artery disease. She is also known to have rheumatoid arthritis, COPD, history of recurrent DVTs, PTSD and fibromyalgia. She is diagnosed with sleep apnea but currently uses CPAP on a as needed basis. This patient has a history of hypokalemia. Apparently she has been very poorly compliant with the potassium take. Even though she was advised to take the potassium every day, she been taking it only every other day or so. She says the pill is too big for her! She had a Myocardial perfusion imaging in February of this year. The study was essentially unremarkable. Because of her ongoing and worsening symptoms, it was decided to do a cardiac catheterization to further evaluate her symptoms. Review of Systems 2 Narrative: CONSTITUTIONAL: No fever or chills. EYES: No blurring of vision or other visual disturbances lately. ENT: No hoarseness of voice, auditory disturbances or sore throat. CARDIOVASCULAR: As mentioned above. RESPIRATORY: Patient has severe COPD and on home oxygen 3 L/min by nasal cannula. She also has reactive airway disease and on bronchodilators. GASTROINTESTINAL: No hematemesis or melena. GENITOURINARY: No dysuria or hematuria. INTEGUMENTARY: No skin rashes or history of skin cancer. NEURO: No transient ischemic attacks or amaurosis. PSYCHIATRIC: No history of psychosis or major depression. HEMATOLOGIC: No bleeding disorders or significant anemia. ENDOCRINE: History of hypothyroidism, clinically euthyroid. MUSCULOSKELETAL: Rheumatoid arthritis/fibromyalgia ALLERGY/IMMUNOLOGY: As mentioned above. Medications/Allergies Home Medications Medication Instructions Recorded Confirmed Last Taken Type carvedilol 25 mg tablet 25 mg PO BID #60 tabs 12/05/20 05/17/24 05/18/24 05:00 Rx Nebulizer machine #1 ea 12/06/20 05/17/24 09/18/23 Rx levothyroxine 100 mcg tablet 100 mcg PO DAILY #90 tabs 12/15/20 05/17/24 05/18/24 05:00 Rx hydroxyzine HCl 25 mg tablet 25 mg PO QID PRN anxiety #120 tabs 01/17/21 05/17/24 05/17/24 20:00 Rx clonidine HCl 0.1 mg tablet 0.1 mg PO DAILY PRN hypertensive 03/06/21 05/17/24 05/17/24 20:00 Rx emergency #90 tabs fluoxetine 20 mg capsule (Prozac) 20 mg PO DAILY 01/04/22 05/17/24 05/18/24 05:00 History cholecalciferol (vitamin D3) 50 2,000 unit PO DAILY #30 tabs 01/29/22 05/17/24 03/04/24 Rx mcg (2,000 unit) tablet clopidogrel 75 mg tablet 75 mg PO DAILY 02/03/22 05/17/24 05/18/24 05:00 History albuterol sulfate 1.25 mg/3 mL 1.25 mg (3 mL) inhalation Q8H PRN 02/06/22 05/17/24 05/18/24 05:00 Rx solution for nebulization shortness of breath or wheezing #75 mL albuterol sulfate 90 mcg/actuation 2 inh inhalation Q8H PRN shortness 02/06/22 05/17/24 05/18/24 05:00 Rx aerosol inhaler of breath or wheezing #8.5 grams atorvastatin 40 mg tablet 40 mg PO QPM 08/23/22 05/17/24 05/18/24 05:00 History vitamin E 268 mg (400 unit) capsule 268 mg PO DAILY 08/23/22 05/17/24 03/04/24 History cyclobenzaprine 10 mg tablet 10 mg PO BID 10/10/22 05/17/24 05/17/24 20:00 History potassium chloride 20 mEq 20 meq PO .COMPLEX #45 tabs 10/10/22 05/17/24 05/18/24 05:00 Rx tablet,extended release topiramate 25 mg tablet 25 mg PO BID 10/10/22 05/17/24 05/18/24 05:00 History guaifenesin 600 mg tablet, 600 mg PO BID 10/16/22 05/17/24 11/11/23 History extended release 12 hr fluticasone fur. 100 mcg-umeclid 1 inh inhalation DAILY #60 ea 05/05/23 05/17/24 03/04/24 Rx 62.5 mcg-vilant 25 mcg inhalat.powder (Trelegy Ellipta) triamcinolone acetonide 0.1 % 1 applic topical BID PRN Rash 09/17/23 05/17/24 Unknown History topical ointment pantoprazole 40 mg tablet,delayed 40 mg PO DAILY #30 tabs 09/19/23 05/17/24 05/18/24 05:00 Rx release (Protonix) folic acid 1 mg tablet 1 mg PO DAILY #30 tabs 10/22/23 05/17/24 05/18/24 05:00 Rx methotrexate sodium 2.5 mg tablet 20 mg (8 x 2.5 mg) PO .Q7days #40 10/22/23 05/18/24 05/05/24 Rx tabs prednisone 10 mg tablet 10 mg PO DAILY #90 tabs 10/22/23 05/17/24 05/18/24 05:00 Rx oxycodone-acetaminophen 10 mg-325 1 tab PO Q8H PRN Pain 11/11/23 05/18/24 05/18/24 05:00 History mg tablet isosorbide mononitrate 30 mg 30 mg PO BID #90 tabs 11/21/23 05/17/24 05/18/24 05:00 Rx tablet,extended release 24 hr secukinumab 150 mg/mL subcutaneous 300 mg (2 mL) SUBCUT .G9iqozl #2 mL 12/16/23 05/18/24 05/05/24 Rx pen injector (Cosentyx Pen 300 mg/2 Pens () furosemide 20 mg tablet See Rx Instructions .Route 03/30/24 05/17/24 05/18/24 05:00 Rx .COMPLEX #315 tabs nitroglycerin 0.4 mg sublingual 0.4 mg sublingual Q5M PRN chest 05/06/24 05/17/24 Unknown Rx tablet pain #30 tabs Allergies Allergy/AdvReac Type Severity Reaction Status Date / Time sertraline [From Zoloft] Allergy Unknown Unknown Verified 05/18/24 08:35 aspirin Allergy Unknown Verified 05/18/24 08:35 buspirone [From BuSpar] Allergy Unknown Verified 05/18/24 08:35 codeine Allergy Unknown Verified 05/18/24 08:35 diltiazem Allergy Unknown Verified 05/18/24 08:35 duloxetine Allergy Unknown Verified 05/18/24 08:35 gabapentin [From Neurontin] Allergy Unknown Verified 05/18/24 08:35 ibuprofen Allergy UNKNOWN Verified 05/18/24 08:35 iodine Allergy Unknown Verified 05/18/24 08:35 ketorolac [From Toradol] Allergy UNKNOWN Verified 05/18/24 08:35 lisinopril Allergy Unknown Verified 05/18/24 08:35 Penicillins Allergy Unknown Verified 05/18/24 08:35 pregabalin [Lyrica] Allergy Unknown Verified 05/18/24 08:35 Sulfa (Sulfonamide Allergy Unknown Verified 05/18/24 08:35 Antibiotics) tizanidine Allergy Unknown Verified 05/18/24 08:35 tramadol Allergy Unknown Verified 05/18/24 08:35 varenicline [From Chantix] Allergy UNKNOWN Verified 05/18/24 08:35 venlafaxine Allergy Unknown Verified 05/18/24 08:35 verapamil Allergy ADR-Fatigue Verified 05/18/24 08:35 d PFSH Acute 2 PFSH: Medical History Pneumonia Psoriatic arthritis Compression fracture Acute respiratory failure with hypoxia Community acquired pneumonia Facial swelling Ischemic stroke Respiratory failure Anxiety Bereavement counseling Immunization counseling High risk medication use Depression with anxiety Aortic regurgitation Hypothyroidism GERD without esophagitis Intermittent palpitations Hyperlipidemia Seronegative rheumatoid arthritis Essential (primary) hypertension Eczema Inflammatory arthritis Fibromyalgia Polyarticular psoriatic arthritis Surgical History H/O esophagogastroduodenoscopy (11/07/20) H/O breast biopsy Status post colonoscopy (11/07/20) H/O thyroidectomy Hx of cholecystectomy History of tonsillectomy Family History Mother Rheumatoid arthritis Father Rheumatoid arthritis Leukemia Denies family history of Lupus Social History Smoking and tobacco/nicotine status: current some day tobacco/nicotine user cigarettes Packs smoked per day: 0.25 Years cigarettes smoked: 25 [ Other cigarette details: 2ppd x 25 years, currently trying to quit] Second hand smoke exposure: Yes Alcohol intake: never Substance/Drug Use: never Marital status: Current occupational status: disabled Current gender identity: Female Vitals/I&O/Wt Last Vital Signs Temp 98.0 F 05/18/24 07:08 Pulse 91 05/18/24 07:08 Resp 18 05/18/24 07:08 BP 124/96 05/18/24 07:08 Pulse Ox 97 05/18/24 07:08 O2 Del Method Nasal Cannula 05/18/24 07:08 O2 Flow Rate 3 05/18/24 07:08 Weight last 48 hrs Weight 157 lb Physical Exam 2 Narrative: GENERAL: The patient is alert and oriented times three. Not in any acute distress. HEENT: No significant pallor, icterus or lymphadenopathy.Oral cavity: There are no mucous membrane lesions. Cotton shaped facies NECK: Trachea appears to be central. No masses noted. No JVD or thyromegaly appreciated. RESPIRATORY: Chest is symmetrical. No intercostals muscle retraction or any accessory muscle activation. There is no chest wall tenderness. Breath sounds are heard bilaterally. Occasional expiratory wheezing no evidence of any consolidation. BREASTS: Deferred. HEART: The heart sounds are normal. No S3 or S4. No significant murmurs. No pericardial rub ABDOMEN: No vessel pulsations or distention. No tenderness. No organomegaly appreciated. Bowel sounds are normally heard. : Deferred. RECTAL: Deferred. LYMPHATIC: No lymphadenopathy noted in the neck. EXTREMITIES: No edema or cyanosis. No clubbing. MUSCULOSKELETAL: No acute joint deformities or swelling SKIN: There are no significant rashes or ecchymosis NEUROPSYCHIATRIC: The patient is alert and oriented x3. Appears to be in a good mood. No tremors or rigidity noted. Data 05/18/24 07:14 05/18/24 07:14 Other Labs: Laboratory Last Values WBC 15.13 10^3/uL (3.29-11.43) H 05/18/24 07:14 RBC 4.58 10^6/uL (3.85-5.65) 05/18/24 07:14 Hgb 14.10 g/dL (11.27-16.99) 05/18/24 07:14 Hct 45.7 % (36-47) 05/18/24 07:14 MCV 99.8 fl (85-98) H 05/18/24 07:14 MCH 30.8 pg (27-33) 05/18/24 07:14 MCHC 30.9 g/dL (30-55) 05/18/24 07:14 RDW 13.5 % (12.1-15.1) 05/18/24 07:14 Plt Count 302 10^3/cmm (157-399) 05/18/24 07:14 MPV 9.4 fL (7.4-10.4) 05/18/24 07:14 Neut % (Auto) 69.6 % 05/18/24 07:14 Lymph % (Auto) 18.0 % 05/18/24 07:14 [place] % (Auto) 10.4 % 05/18/24 07:14 Eos % (Auto) 1.1 % 05/18/24 07:14 Baso % (Auto) 0.2 % 05/18/24 07:14 Neut # (Auto) 10.54 10^3/uL (1.8-7.7) H 05/18/24 07:14 Lymph # (Auto) 2.7 10^3/uL (0.8-4.8) 05/18/24 07:14 [place] # (Auto) 1.6 10^3/uL (0.2-0.9) H 05/18/24 07:14 Eos # (Auto) 0.2 10^3/uL (0.0-0.8) 05/18/24 07:14 Baso # (Auto) 0.0 10^3/uL (0.0-0.1) 05/18/24 07:14 Nucleated RBC % (auto) 0 % 05/18/24 07:14 Nucleated RBCs # 0.0 /100WBC 05/18/24 07:14 Sodium 142 mmol/L (136-145) 05/18/24 07:14 Potassium 2.5 mmol/L (3.5-5.1) L* 05/18/24 07:14 Chloride 94 mmol/L (98-107) L 05/18/24 07:14 Carbon Dioxide 39 mmol/L (22-29) H 05/18/24 07:14 Anion Gap 11.5 (5-19) 05/18/24 07:14 BUN 6 mg/dL (8-23) L 05/18/24 07:14 Creatinine 0.8 mg/dL (0.5-0.9) 05/18/24 07:14 GFR Calculation 73.2 mL/min (90-130) L 05/18/24 07:14 Glucose 158 mg/dL (65-115) H 05/18/24 07:14 Calculated Osmolality 295 mOsm/kg (285-295) 05/18/24 07:14 Calcium 9.5 mg/dL (8.5-10.5) 05/18/24 07:14 A&P Assessment and plan (1) Hypokalemia: She is being admitted to the hospital for IV potassium supplement. Will give her 2 riders of potassium 40 mill equivalent or 4 hours x 2. Also make a potassium p.o. 20 mg now and after 4 hours. Will repeat the BMP in the afternoon (2) Chest pain: Patient is increasing episodes of chest pain may suggest underlying coronary ischemia. In view of her fibromyalgia and multiple other medical problems, it may be difficult to discern the symptoms. However the patient has definite worsening of symptoms affecting her functional status. Qualifiers: Chest pain type: other chest pain Qualified Code(s): R07.89 - Other chest pain (3) Atherosclerotic heart disease [place] coronary artery w/angina pectoris: She was found to have mild coronary disease by angiogram almost 8 years ago. Possibility of worsening of the underlying coronary disease is a strong consideration. Qualifiers: [place] vs. transplanted heart: [place] heart Qualified Code(s): I25.119 - Atherosclerotic heart disease of [place] coronary artery with unspecified angina pectoris (4) Dyspnea on exertion: This could be multifactorial. Patient has COPD/reactive airway disease. She is almost steroid-dependent. Coronary ischemia causing the shortness of breath also is a consideration. (5) Hyperlipidemia: May continue on the current medications. Qualifiers: Hyperlipidemia type: mixed hyperlipidemia Qualified Code(s): E78.2 - Mixed hyperlipidemia (6) Essential (primary) hypertension: The blood pressure is fairly under control. Will continue on the current medications. (7) Smoking: Patient understand the cardiovascular medications. Attestations 2 Medical Necessity Statement*: Patient may require an overnight stay for further evaluation and management of her condition. Consider categorization at 4:30 today. We will do a BMP at 2:00. Based on the results, further recommendations will be made. Coding Level of Care Code 24521 Diagnoses Hypokalemia E87.6 Other chest pain R07.89 Chest pain type: other chest pain Atherosclerosis of [place] coronary artery of [place] heart with angina pectoris I25.119 [place] vs. transplanted heart: [place] heart Dyspnea on exertion R06.00 Mixed hyperlipidemia E78.2 Hyperlipidemia type: mixed hyperlipidemia Essential (primary) hypertension I10 Smoking F17.200
[2024-05-18] MEDS: lidocaine 1% 5 ML in potassium chloride premix 100 ML 26.25 ML IV ×2 (09:02→12:53)
[2024-05-18] MEDS: potassium chloride ER 20 mEq Tablet PO ×2 (09:07→12:53)
--- NOTE | 2024-05-18 09:50 | PC.NURSE ---
pt has allergic reaction to aspirin and iodine pt reports of hives,throat swelling,itching on aspirin, also she cant have any iodine or shellfish allergy. notified dr mcleod and he said to pre medicate pt with prednisone 50 mg now and then at 2 pm.
[2024-05-18] MEDS: oxyCODONE-APAP 10-325 mg Tablet 1 TAB PO (10:20)
[2024-05-18] MEDS: predniSONE 20 mg Tablet 50 MG PO (10:21)
[2024-05-18] MEDS: sodium chloride 0.9% 1,000 ML 50 ML IV (10:23)
[2024-05-18] MEDS: ipratropium-albuterol 3 mL Neb INHALATION ×3 (11:54→19:46)
--- NOTE | 2024-05-18 15:30 | PC.NURSE ---
lab called and told us that they will redraw BMP since the 2 pm got hemolyzed.
[2024-05-18] MEDS: predniSONE 20 mg Tablet 40 MG PO (15:32)
[2024-05-18] MEDS: diphenhydrAMINE 50 mg Capsule PO (15:35)
[2024-05-18 16:05] LABS: Anion Gap 12.6 (5-19); Blood Urea Nitrogen 8 mg/dL (8-23); Calcium 9.4 mg/dL (8.5-10.5); Carbon Dioxide 36 mmol/L (22-29); Chloride 96 mmol/L (98-107); Glomerular Filtration Rate 125.9 mL/min (90-130); Glucose 134 mg/dL (65-115); Osmolality Calculated 290 mOsm/kg (285-295); Potassium 4.6 mmol/L (3.5-5.1); Sodium 140 mmol/L (136-145)
--- NOTE | 2024-05-18 16:13 | PC.NURSE ---
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
--- NOTE | 2024-05-18 16:37 | W.PM.OPSUD ---
Surgery/Procedure H&P Update DATE OF PROCEDURE: May 18, 2024 DATE H&P PERFORMED: 05/18/24 PREOP DIAGNOSIS: ASHD PRIMARY INDICATION FOR PROCEDURE: Increasing chest pain,/history of ASHD/multiple risk factors PLANNED PROCEDURE: Operation Date: 05/18/24 07:00 Proposed Procedures p Cardiac Catheterization(Left) - Nery Mann MD PATIENT REASSESSED PRIOR TO SEDATION, WITH NO CHANGE NOTED: Yes PHYSICAL EXAM: alert, oriented x 3 and clear to auscultation bilaterally AIRWAY EVAL/ANESTHESIA PLAN: normal airway, see other exam findings and ASA III
[2024-05-18] MEDS: guaiFENesin 600 mg Tablet PO (18:09)
[2024-05-18] MEDS: fentaNYL 50 mcg/mL INJ 2mL 12.5 MCG IVP (18:09)
[2024-05-18] MEDS: atorvastatin 40 mg Tablet PO (18:09)
[2024-05-18] MEDS: topiramate 25 mg Tablet PO (18:15)
[2024-05-18] MEDS: carvedilol 25 mg Tablet PO (18:15)
[2024-05-18] MEDS: cyclobenzaprine 10 mg Tablet PO (18:28)
[2024-05-18] MEDS: isosorbide mononitrate ER 30 mg Tablet PO (18:28)
[2024-05-18] MEDS: budesonide 0.5 mg/2 mL Neb INHALATION (19:46)
[2024-05-19] VITALS (14 sets, daily range): BP systolic 127–176; BP diastolic 71–83; PULSE 75–88; RESP 18–23; TEMP 36.7; O2SAT 94–96
[2024-05-19] MEDS: oxyCODONE-APAP 10-325 mg Tablet 1 TAB PO (06:37)
[2024-05-19] MEDS: budesonide 0.5 mg/2 mL Neb INHALATION (08:28)
[2024-05-19] MEDS: ipratropium-albuterol 3 mL Neb INHALATION (08:29)
--- NOTE | 2024-05-19 08:42 | P.PN_ITS ---
Subjective 2 Subjective: Final progress note The patient is feeling okay. No chest pain or palpitations. No dizziness or syncopal episodes. No arrhythmias on the monitor. She had a cardiac catheterization yesterday. 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 Mild disease in the coronary arteries. No significant obstructive lesions. Based on the angiogram findings, it was decided to treat her medically Medications: Medication Review Details: Current Medications Al Hydrox/Mg Hydrox/Simethicone (Jxmd-Fgt-Wcuqwhbcj-[place] 30 Ml Udc) 30 ml PO Q15M PRN PRN Reason: INDIGESTION Albuterol Sulfate (Albuterol 2.5 Mg/3 Ml Neb) 2.5 mg INHALATION Q4H.RESPIRATORY PRN PRN Reason: shortness of breath Albuterol/Ipratropium (Ipratropium-Albuterol 3 Ml Neb) 3 ml INHALATION QID.RESPIRATORY [facility] Last Admin: 05/19/24 08:29 Dose: 3 ml Atorvastatin Calcium (Atorvastatin 40 Mg Tablet) 40 mg PO QPM [facility] Last Admin: 05/18/24 18:09 Dose: 40 mg Atropine Sulfate (Atropine 1 Mg/Ml Sdv 1 Ml) 0.5 mg IVP PRN PRN PRN Reason: Symptomatic bradycardia Budesonide (Budesonide 0.5 Mg/2 Ml Neb) 0.5 mg INHALATION BID.RESPIRATORY [facility] Last Admin: 05/19/24 08:28 Dose: 0.5 mg Carvedilol (Carvedilol 25 Mg Tablet) 25 mg PO BID [facility] Last Admin: 05/18/24 18:15 Dose: 25 mg Clonidine HCl (Clonidine 0.1 Mg Tablet) 0.1 mg PO DAILY PRN PRN Reason: hypertensive emergency Clopidogrel Bisulfate (Clopidogrel 75 Mg Tablet) 75 mg PO DAILY [facility] Last Admin: 05/18/24 08:42 Dose: Not Given Cyclobenzaprine HCl (Cyclobenzaprine 10 Mg Tablet) 10 mg PO BID [facility] Last Admin: 05/18/24 18:28 Dose: 10 mg Fluoxetine HCl (Fluoxetine 20 Mg Capsule) 20 mg PO DAILY [facility] Last Admin: 05/18/24 08:44 Dose: Not Given Folic Acid (Folic Acid 1 Mg Tablet) 1 mg PO DAILY [facility] Last Admin: 05/18/24 08:45 Dose: Not Given Furosemide (Furosemide 20 Mg Tablet) 20 mg PO EVERY OTHER DAY [facility] Last Admin: 05/18/24 08:44 Dose: Not Given Furosemide (Furosemide 40 Mg Tablet) 40 mg PO EVERY OTHER DAY ONE Stop: 05/19/24 09:01 Guaifenesin (Guaifenesin 600 Mg Tablet) 600 mg PO BID [facility] Last Admin: 05/18/24 18:09 Dose: 600 mg Hydroxyzine Pamoate (Hydroxyzine 25 Mg Capsule) 25 mg PO QID PRN PRN Reason: anxiety Isosorbide Mononitrate (Isosorbide Mononitrate Er 30 Mg Tablet) 30 mg PO BID [facility] Last Admin: 05/18/24 18:28 Dose: 30 mg Levothyroxine Sodium (Levothyroxine 100 Mcg Tablet) 100 mcg PO DAILY [facility] Last Admin: 05/18/24 09:41 Dose: Not Given Magnesium Hydroxide (Magnesium Hydroxide 30 Ml Udc) 30 ml PO DAILY PRN PRN Reason: CONSTIPATION Naloxone HCl (Naloxone 0.4 Mg/Ml Sdv) 0.1 mg IVP Q2M PRN PRN Reason: RESPIRATORY RATE < 8/MIN Nitroglycerin (Nitroglycerin 0.4 Mg Sublingual Tablet) 0.4 mg SUBLINGUAL Q5M PRN PRN Reason: chest pain Non-Formulary Medication (Methotrexate Sodium) 20 mg PO .Q7days [facility] Non-Formulary Medication (Secukinumab [Cosentyx Pen (2 Pens)]) 300 mg SUBCUT .[id number] [facility] Non-Formulary Medication (Vitamin E) 268 mg PO DAILY [facility] Oxycodone/Acetaminophen (Oxycodone-Apap 10-325 Mg Tablet) 1 tab PO Q8H PRN PRN Reason: Pain Last Admin: 05/19/24 06:37 Dose: 1 tab Pantoprazole Sodium (Pantoprazole Dr 40 Mg Tablet) 40 mg PO DAILY [facility] Last Admin: 05/18/24 09:41 Dose: Not Given Prednisone (Prednisone 10 Mg Tablet) 10 mg PO DAILY [facility] Last Admin: 05/18/24 09:42 Dose: Not Given Temazepam (Temazepam 15 Mg Capsule) 15 mg PO BEDTIME PRN PRN Reason: INSOMNIA Topiramate (Topiramate 25 Mg Tablet) 25 mg PO BID [facility] Last Admin: 05/18/24 18:15 Dose: 25 mg Triamcinolone Acetonide (Triamcinolone 0.1% Oint 15 Gm) 1 applic TOPICAL BID PRN PRN Reason: Rash Vitamin D (Cholecalciferol (Vitamin D3) 1,000 Unit Tablet) 2,000 unit PO DAILY [facility] Last Admin: 05/18/24 08:43 Dose: Not Given Vitals/I&O/Wt Last Vital Signs Temp 98.1 F 05/19/24 07:39 Pulse 88 05/19/24 08:00 Resp 22 H 05/19/24 08:00 BP 176/82 05/19/24 07:39 Pulse Ox 96 05/19/24 08:00 O2 Del Method Nasal Cannula 05/19/24 08:00 O2 Flow Rate 3 05/19/24 08:00 05/18/24 05/19/24 05/19/24 22:59 06:59 14:59 Intake Total 345 / 780.769 2108 / 1806.063 Output Total 600 / 600 Balance -255 / 885.537 2164 / 1206.063 Weight last 48 hrs Weight 165 lb 5.547 oz Weight 165 lb 5.547 oz Weight 157 lb Physical Exam 2 Narrative: GENERAL: The patient is alert and oriented times three. Not in any acute distress. HEENT: No significant pallor, icterus or lymphadenopathy.Oral cavity: There are no mucous membrane lesions. Cotton shaped facies NECK: Trachea appears to be central. No masses noted. No JVD or thyromegaly appreciated. RESPIRATORY: Chest is symmetrical. No intercostals muscle retraction or any accessory muscle activation. There is no chest wall tenderness. Breath sounds are heard bilaterally. Occasional expiratory wheezing no evidence of any consolidation. BREASTS: Deferred. HEART: The heart sounds are normal. No S3 or S4. No significant murmurs. No pericardial rub ABDOMEN: No vessel pulsations or distention. No tenderness. No organomegaly appreciated. Bowel sounds are normally heard. : Deferred. RECTAL: Deferred. LYMPHATIC: No lymphadenopathy noted in the neck. EXTREMITIES: No edema or cyanosis. No clubbing. No hematoma bleeding from the radial arterial puncture site MUSCULOSKELETAL: No acute joint deformities or swelling SKIN: There are no significant rashes or ecchymosis NEUROPSYCHIATRIC: The patient is alert and oriented x3. Appears to be in a good mood. No tremors or rigidity noted. Data 05/18/24 07:14 05/18/24 15:30 A&P Assessment and plan (1) Hypokalemia: The potassium is corrected. The latest potassium is 4.6. (2) Chest pain: Most likely noncardiac. The left-ventricular diastolic dysfunction and the myocardial bridge also could be a contributing factor. 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 transplanted heart: [place] heart Qualified Code(s): I25.119 - Atherosclerotic heart disease of [place] coronary artery with unspecified angina pectoris (4) Dyspnea on exertion: Most likely related to the COPD/reactive airway disease (5) Hyperlipidemia: May continue on the current medications. Qualifiers: Hyperlipidemia type: mixed hyperlipidemia Qualified Code(s): E78.2 - Mixed hyperlipidemia (6) Essential (primary) hypertension: The blood pressure is fairly under control. Will continue on the current medications. (7) Smoking: Patient understand the cardiovascular medications. Plan Since the patient is remaining stable with no new symptoms, she is being discharged home today. She has been noncompliant with the potassium. She is strongly advised to continue taking the potassium as prescribed. The importance of compliance was discussed. Attestations 2 Medical Necessity Statement*: Discharge home today Coding Level of Care Code 38211 Diagnoses Hypokalemia E87.6 Other chest pain R07.89 Chest pain type: other chest pain Atherosclerosis of [place] coronary artery of [place] heart with angina pectoris I25.119 [place] vs. transplanted heart: [place] heart Dyspnea on exertion R06.00 Mixed hyperlipidemia E78.2 Hyperlipidemia type: mixed hyperlipidemia Essential (primary) hypertension I10 Smoking F17.200
[2024-05-19] MEDS: levothyroxine 100 mcg Tablet PO (09:10)
[2024-05-19] MEDS: isosorbide mononitrate ER 30 mg Tablet PO (09:10)
[2024-05-19] MEDS: cholecalciferol (vitamin D3) 1,000 unit Tablet 2000 UNIT PO (09:10)
[2024-05-19] MEDS: guaiFENesin 600 mg Tablet PO (09:10)
[2024-05-19] MEDS: folic acid 1 mg Tablet PO (09:11)
[2024-05-19] MEDS: pantoprazole DR 40 mg Tablet PO (09:11)
[2024-05-19] MEDS: FUROsemide 40 mg Tablet PO (09:11)
[2024-05-19] MEDS: cyclobenzaprine 10 mg Tablet PO (09:11)
[2024-05-19] MEDS: topiramate 25 mg Tablet PO (09:11)
[2024-05-19] MEDS: fluoxetine 20 mg Capsule PO (09:11)
[2024-05-19] MEDS: carvedilol 25 mg Tablet PO (09:12)
[2024-05-19] MEDS: predniSONE 10 mg Tablet PO (09:12)
[2024-05-19] MEDS: clopidogrel 75 mg Tablet PO (09:12)
== END 2024-05-19 11:20 | disposition home or self-care (01) ==
LOC: CCL 23:19 → CSU 23:19
PROVIDERS: Admitting Provider Internal Medicine Cardiovascular Disease; PCP Nurse Practitioner Family; Visit Provider Internal Medicine Cardiovascular Disease
DX: I25.119 Atherosclerotic heart disease of native coronary artery with unspecified angina pectoris (principal); J44.9 Chronic obstructive pulmonary disease, unspecified; I10 Essential (primary) hypertension; E78.2 Mixed hyperlipidemia; E87.6 Hypokalemia; R06.00 Dyspnea, unspecified; F17.200 Nicotine dependence, unspecified, uncomplicated; Z86.718 Personal history of other venous thrombosis and embolism; M06.9 Rheumatoid arthritis, unspecified; G47.30 Sleep apnea, unspecified; E03.9 Hypothyroidism, unspecified
CPT/HCPCS: 36415; 80048; 85025; 93458; 94640; 96374; 96375; 96376; 99152; 99153; C1769; C1887; C1894; G0378; J1644; J2250; J2919; J3010; J3480; J3490; J7030; J7512; J7626; Q0163; Q9967

== ENCOUNTER 2024-08-19 12:12 | Observation (INO) | payer MEDICARE, MEDICAID, SELFPAY ==
[2024-08-19] VITALS (15 sets, daily range): BP systolic 126–171; BP diastolic 81–102; PULSE 78–96; RESP 16–20; TEMP 36.4–37.6; O2SAT 93–98
--- NOTE | 2024-08-19 12:17 | ECG_ITS ---
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 Measurements Intervals [place] Rate: 89 P: 61 W[place]: 169 QRS: -19 QRSD: 79 T: 41 QT: 387 QTc: 471 Interpretive Statements SINUS RHYTHM POSSIBLE LEFT ATRIAL ENLARGEMENT [-0.1mV P-WAVE IN V1/V2] POSSIBLE ANTERIOR MYOCARDIAL INFARCTION , PROBABLY OLD [30 ms Q WAVE IN V3/V4, OR R < 0.2 mV IN V4] Compared to ECG 01/29/2024 11:22:18 Myocardial infarct finding now present Electronically Signed On 08-20-2024 09:32:08 [employer] WORK[employer] by Gui Conway M.D. [email or web address]
--- NOTE | 2024-08-19 12:20 | XR_ITS ---
WS: [id number] Exam: XR chest 1V portable [id number] Date/Time of Exam: 08/19/2024 12:29 PM Reason For Exam: Shortness of breath Comparison 11/11/2023. Lungs are fully expanded and clear. Heart size top limits normal. No pleural effusions. The mediastin um is normal in contour. Unremarkable bony structures. XR/XR chest 1V portable [id number] IMPRESSION: 1. Negative chest.
--- NOTE | 2024-08-19 12:28 | ED_ITS ---
HPI - SOB/Dyspnea 2 General: Chief Complaint: Shortness of Breath/Dyspnea Stated Complaint: SOB, chest/back pain Time Seen by Provider: 08/19/24 12:14 History of Present Illness: HPI Narrative: 58-year-old female with a history of isc hemic stroke, aortic regurg, depression, GERD, hyperlipidemia, fibromyalgia, chronic hypoxemic respiratory failure on 4 L nasal cannula and COPD who presents the emergency room with back pain, chest pain and shortness of breath. She says overnight she went to turning pick something up and felt a pop and since then her back is hurt her chest is hurt and she has been more short of breath. She reports that she had cemented put into her back at some point in the past. She has chronic back issues. EMS reports CO2 retention. They gave an updraft, Dilaudid and Solu-Medrol. No altered mental status. No focal motor deficits. No abdominal pain. No nausea or vomiting. No fevers. Related Data Home Medications Medication Instructions Recorded Confirmed fluoxetine 20 mg capsule (Prozac) 20 mg PO DAILY 01/04/22 08/19/24 clopidogrel 75 mg tablet 75 mg PO DAILY 02/03/22 08/19/24 atorvastatin 40 mg tablet 40 mg PO QPM 08/23/22 08/19/24 cyclobenzaprine 10 mg tablet 10 mg PO BID 10/10/22 08/19/24 topiramate 25 mg tablet 25 mg PO BID 10/10/22 08/19/24 oxycodone-acetaminophen 10 mg-325 1 tab PO Q8H PRN Pain 11/11/23 08/19/24 mg tablet isosorbide mononitrate 30 mg 30 mg PO BID 08/19/24 08/19/24 tablet,extended release 24 hr Previous Rx's Medication Instructions Recorded Nebulizer machine #1 ea 12/06/20 levothyroxine 100 mcg tablet 100 mcg PO DAILY #90 tabs 12/15/20 clonidine HCl 0.1 mg tablet 0.1 mg PO DAILY PRN hypertensive 03/06/21 emergency #90 tabs cholecalciferol (vitamin D3) 50 2,000 unit PO DAILY #30 tabs 01/29/22 mcg (2,000 unit) tablet albuterol sulfate 90 mcg/actuation 2 inh inhalation Q8H PRN shortness 02/06/22 aerosol inhaler of breath or wheezing #8.5 grams pantoprazole 40 mg tablet,delayed 40 mg PO DAILY #30 tabs 09/19/23 release (Protonix) secukinumab 150 mg/mL subcutaneous 300 mg (2 mL) SUBCUT .[id number] #2 mL 12/16/23 pen injector (Cosentyx Pen 300 mg/2 Pens () furosemide 20 mg tablet See Rx Instructions .Route 03/30/24 .COMPLEX #315 tabs nitroglycerin 0.4 mg sublingual 0.4 mg sublingual Q5M PRN chest 05/06/24 tablet pain #30 tabs metoprolol tartrate 50 mg tablet 50 mg PO BID #60 tabs 05/19/24 prednisone 10 mg tablet 10 mg PO DAILY #30 tabs 07/27/24 Allergies Allergy/AdvReac Type Severity Reaction Status Date / Time sertraline [From Zoloft] Allergy Unknown Unknown Verified 05/18/24 08:35 aspirin Allergy Unknown Verified 05/18/24 08:35 buspirone [From BuSpar] Allergy Unknown Verified 05/18/24 08:35 codeine Allergy Unknown Verified 05/18/24 08:35 diltiazem Allergy Unknown Verified 05/18/24 08:35 duloxetine Allergy Unknown Verified 05/18/24 08:35 gabapentin [From Neurontin] Allergy Unknown Verified 05/18/24 08:35 ibuprofen Allergy UNKNOWN Verified 05/18/24 08:35 iodine Allergy Unknown Verified 05/18/24 08:35 ketorolac [From Toradol] Allergy UNKNOWN Verified 05/18/24 08:35 lisinopril Allergy Unknown Verified 05/18/24 08:35 Penicillins Allergy Unknown Verified 05/18/24 08:35 pregabalin [Lyrica] Allergy Unknown Verified 05/18/24 08:35 Sulfa (Sulfonamide Allergy Unknown Verified 05/18/24 08:35 Antibiotics) tizanidine Allergy Unknown Verified 05/18/24 08:35 tramadol Allergy Unknown Verified 05/18/24 08:35 varenicline [From Chantix] Allergy UNKNOWN Verified 05/18/24 08:35 venlafaxine Allergy Unknown Verified 05/18/24 08:35 verapamil Allergy ADR-Fatigue Verified 05/18/24 08:35 d Review of Systems 2 Narrative: Constitutional symptoms: Negative except as documented in HPI. Skin symptoms: Negative except as documented in HPI. Eye symptoms: Negative except as documented in HPI. ENMT symptoms: Negative except as documented in HPI. Respiratory symptoms: Negative except as documented in HPI. Cardiovascular symptoms: Negative except as documented in HPI. Gastrointestinal symptoms: Negative except as documented in HPI. Genitourinary symptoms: Negative except as documented in HPI. Musculoskeletal symptoms: Negative except as documented in HPI. Neurologic symptoms: Negative except as documented in HPI. Psychiatric symptoms: Negative except as documented in HPI. Endocrine symptoms: Negative except as documented in HPI. PFSH ED 2 PFSH: Medical History Pneumonia Psoriatic arthritis Compression fracture Acute respiratory failure with hypoxia Community acquired pneumonia Facial swelling Ischemic stroke Respiratory failure Anxiety Bereavement counseling Immunization counseling High risk medication use Depression with anxiety Aortic regurgitation Hypothyroidism GERD without esophagitis Intermittent palpitations Hyperlipidemia Seronegative rheumatoid arthritis Essential (primary) hypertension Eczema Inflammatory arthritis Fibromyalgia Polyarticular psoriatic arthritis Surgical History H/O esophagogastroduodenoscopy (11/07/20) H/O breast biopsy Status post colonoscopy (11/07/20) H/O thyroidectomy Hx of cholecystectomy History of tonsillectomy Family History Mother Rheumatoid arthritis Father Rheumatoid arthritis Leukemia Denies family history of Lupus Social History Smoking and tobacco/nicotine status: current some day tobacco/nicotine user cigarettes Packs smoked per day: 0.25 Years cigarettes smoked: 25 [ Other cigarette details: 2ppd x 25 years, currently trying to quit] Second hand smoke exposure: Yes Alcohol intake: never Substance/Drug Use: never Marital status: Current occupational status: disabled Current gender identity: Female Physical Exam 2 Narrative: EXAM NARRATIVE: General: Alert, no acute distress. Skin: Warm, dry. Head: Normocephalic, atraumatic. Neck: Supple, trachea midline. Eye: Extraocular movements are intact. Ears, nose, mouth and throat: Oral mucosa moist. Cardiovascular: Regular rate and rhythm, Normal peripheral perfusion. Respiratory: coarse, scattered wheeze, mild increased wob. tachypnea, breath sounds are equal, Symmetrical chest wall expansion. Gastrointestinal: Soft, Nontender, Non distended, Normal bowel sounds. Musculoskeletal: Normal ROM, no deformity. Neurological: Alert and oriented to person, place, time, and situation, No focal neurological deficit observed. Back: There are some mild diffuse tenderness of her thoracic and upper lumbar spine. No focal tenderness. No step-offs. Psychiatric: Cooperative, appropriate mood & affect. Course 2 Vital Signs: Vital signs: Vital Signs Temperature 97.5 F L 08/19/24 12:15 Pulse Rate 87 08/19/24 13:48 Respiratory Rate 17 08/19/24 13:40 Blood Pressure 167/81 08/19/24 13:16 Pulse Oximetry 95 08/19/24 13:48 Oxygen Delivery Me thod BiPAP 08/19/24 13:40 Oxygen Flow Rate 3 08/19/24 13:16 Fraction of Inspir ed Oxygen 30 08/19/24 13:48 MDM - SOB/Dyspnea Medical Decision Making Differential diagnosis for patient with shortness of breath includes but is not limited to and based on the above HPI, review of systems and physical exam: Pneumonia. Bronchitis. Asthma or COPD with acute exacerbation. Acute coronary syndrome / [place]. Pulmonary embolism. Anxiety. Congestive heart failure. Viral infections including influenza and Covid-19. Atrial fibrillation. Anxiety. Pleural effusion. Pneumothorax. Orders placed to evaluate differential diagnosis based on the above differential, HPI and physical exam EKG: Time 1217. Rate 89. Normal sinus rhythm, No ST-T changes, no ectopy, normal IN & QRS intervals, This was reviewed and interpreted by myself the ER physician at 1220 Chest x-ray: No acute process. No infiltrate. No pneumothorax. This was reviewed and interpreted by myself the emergency room physician. I also reviewed the radiology report. CT of the chest without contrast: No acute infiltrates or pneumothorax. This was reviewed and interpreted by myself the emergency room physician. I also reviewed the radiology report. CT of the thoracic spine: There is diffuse old changes and possibly new mild changed T4. See full read below. This was reviewed and interpreted by myself the emergency room physician. I also reviewed the radiology report. Lab Review: Laboratory results were reviewed and interpreted by myself the emergency room physician. Mild leukocytosis with a white count of 13.5. Hemoglobin is normal at 14. BUN and creatinine are normal at 4 and 0.8 AB.3 with an O2 sat of 92% on 4 L. Patient does have some compensated hypercapnia but appears decompensated with a pH of 7.3 today. I reviewed the patient's medical record. Reexamination: Patient seems somewhat improved on BiPAP. She is alert and oriented. She is able to roll over and allow me to reexamine her back. Nothing focal at T4. Consultation: I spoke with hospitalist on-call Dr. Flood. He will put in admission orders and I will place orders to Dr. Fernandez. He agrees to admission to observation. Assessment and plan: COPD with acute exacerbation Hypercapnic respiratory failure. Chronic hypoxemic respiratory failure Vertebral compression fractures ?Patient has received Solu-Medrol, 3 updrafts, doxycycline. She received Dilaudid on the ambulance. She is currently doing much better on BiPAP. -I discussed the patient with the hospitalist on-call who is admitting the patient. - Discussed findings and plan with patient. Answered any questions. - All laboratory values were reviewed and interpreted personally by myself, the ER physician - All imaging was reviewed and interpreted personally by myself, the ER physician. - Evaluation and treatment of this problem were appropriate in the emergency setting Critical care -I spent a total of >35 minutes of critical care time managing the patient, independent of any other practitioner. -The time involved in the performance of separately reportable procedures was not counted towards critical care time. Lab Data 08/19/24 12:23 08/19/24 12:23 Labs/Radiology: Radiology Impressions Chest X-Ray 08/19/24 12:20 IMPRESSION: 1. Negative chest. Chest CT 08/19/24 12:46 IMPRESSION: 1. No pulmonary mass, pneumothorax or contusion. 2. No mediastinal or hilar adenopathy. 3. Numerous contiguous thoracic spine compression fractures. 4. Compression fracture at T4 as slightly progressed. Fracture estimated at 10% loss of height. 5. L1 vertebroplasty. Thoracic Spine CT 08/19/24 12:46 IMPRESSION: 1. Numerous osteoporotic thoracic spine compression fractures. 2. Interval change in T4 compression deformity. Only minimal compression deformity but there is increased sclerosis suggesting progression of the fracture. 3. The remaining thoracic spine compression fractures are stable. No retropulsion or central thoracic canal stenosis. Laboratory Results WBC 13.47 10^3/uL (3.29-11.43) H 08/19/24 12:23 RBC 4.70 10^6/uL (3.85-5.65) 08/19/24 12:23 Hgb 14.20 g/dL (11.27-16.99) 08/19/24 12:23 Hct 46.0 % (36-47) 08/19/24 12:23 MCV 97.9 fl (85-98) 08/19/24 12:23 MCH 30.2 pg (27-33) 08/19/24 12:23 MCHC 30.9 g/dL (30-55) 08/19/24 12:23 RDW 12.7 % (12.1-15.1) 08/19/24 12:23 Plt Count 307 10^3/cmm (157-399) 08/19/24 12:23 MPV 9.9 fL (7.4-10.4) 08/19/24 12:23 Neut % (Auto) 85.6 % 08/19/24 12:23 Lymph % (Auto) 9.4 % 08/19/24 12:23 [place] % (Auto) 4.2 % 08/19/24 12:23 Eos % (Auto) 0.2 % 08/19/24 12:23 Baso % (Auto) 0.2 % 08/19/24 12:23 Neut # (Auto) 11.53 10^3/uL (1.8-7.7) H 08/19/24 12:23 Lymph # (Auto) 1.3 10^3/uL (0.8-4.8) 08/19/24 12:23 [place] # (Auto) 0.6 10^3/uL (0.2-0.9) 08/19/24 12:23 Eos # (Auto) 0.0 10^3/uL (0.0-0.8) 08/19/24 12:23 Baso # (Auto) 0.0 10^3/uL (0.0-0.1) 08/19/24 12:23 Nucleated RBC % (auto) 0 % 08/19/24 12: Nucleated RBCs # 0.0 /100WBC 08/19/24 12:23 Specimen Type Arterial 08/19/24 12:45 Sample Site Radial, left 08/19/24 12:45 ABG pH 7.31 (7.35-7.45) L 08/19/24 12:45 ABG pCO2 71.0 mmHg (35-45) H* 08/19/24 12:45 ABG pO2 94.4 mmHg (80.0-100.0) 08/19/24 12:45 ABG PO2/FiO2 Ratio 236 08/19/24 12:45 ABG HCO3 35.9 mmol/L (22-26) H 08/19/24 12:45 ABG O2 Saturation 97.7 08/19/24 12:45 ABG Base Excess 6.9 mmol/L (-2.0-2.0) H 08/19/24 12:45 Rudy Test Pos 08/19/24 12:45 A-a O2 Gradient 14.0 mmHg (5-10) H 08/19/24 12:45 Hematocrit 44.0 % (37-47) 08/19/24 12:45 Hgb O2 Saturation 92.7 % (95-100) L 08/19/24 12:45 Carboxyhemoglobin 4.9 %THgb (0.4-20.1) 08/19/24 12:45 Methemoglobin 0.2 % (0.4-1.5) L 08/19/24 12:45 Total Hemoglobin 14.4 g/dL (12-16) 08/19/24 12:45 Sodium 141.0 mmol/L (131-143) 08/19/24 12:45 Potassium 3.9 mmol/L (3.5-5.0) 08/19/24 12:45 Glucose 172.0 mg/dL (70-115) H 08/19/24 12:45 Ionized Calcium 1.2 mmol/L (1.1-1.4) 08/19/24 12:45 O2 Delivery Device Nc 08/19/24 12:45 O2 Liters/Min 5.0 % 08/19/24 12:45 FiO2 40.0 % 08/19/24 12:45 Machine Hamper Maker ID [id number] 08/19/24 12:45 Sodium 140 mmol/L (136-145) 08/19/24 12:23 Potassium 3.8 mmol/L (3.5-5.1) 08/19/24 12:23 Chloride 92 mmol/L (98-107) L 08/19/24 12:23 Carbon Dioxide 37 mmol/L (22-29) H 08/19/24 12:23 Anion Gap 14.8 (5-19) 08/19/24 12:23 BUN 4 mg/dL (8-23) L 08/19/24 12:23 Creatinine 0.8 mg/dL (0.5-0.9) 08/19/24 12:23 GFR Calculation 73.2 mL/min (90-130) L 08/19/24 12:23 Glucose 167 mg/dL (65-115) H 08/19/24 12:23 Calculated Osmolality 291 mOsm/kg (285-295) 08/19/24 12:23 Lactic Acid 1.6 mmol/L (0.5-2.2) 08/19/24 12:23 Calcium 9.7 mg/dL (8.5-10.5) 08/19/24 12:23 Total Bilirubin 0.4 mg/dL (0.15-1.2) 08/19/24 12:23 AST 13 U/L (0-32) 08/19/24 12:23 ALT 10 U/L (0-33) 08/19/24 12:23 Alkaline Phosphatase 108 U/L (35-105) H 08/19/24 12:23 Troponin T Baseline 10 ng/L (0-10) 08/19/24 12:23 C-Reactive Protein 4.0 mg/L (0.0-4.9) 08/19/24 12:23 NT-Pro-B Natriuret Pep 124 pg/mL (0-125) 08/19/24 12:23 Total Protein 6.7 g/dL (6.6-8.7) 08/19/24 12:23 Albumin 4.5 g/dL (3.5-5.2) 08/19/24 12:23 Globulin 2.2 g/dL (1.3-4.6) 08/19/24 12:23 Coronavirus (PCR) Negative (Negative) 08/19/24 12:37 Influenza A (PCR) Negative (Negative) 08/19/24 12:37 Influenza Type B (PCR) Negative (Negative) 08/19/24 12:37 RSV (PCR) Negative (Negative) 08/19/24 12:37 All radiology interpretation(s) finalized by discharge Discharge Plan Discharge Patient Disposition: Placed in Observation Clinical Impression: Acute exacerbation of chronic obstructive airways disease, Hypercapnic respiratory failure, Acute on chronic hypoxic respiratory failure, Vertebral compression fracture Coding Level of Care Code ED Labeling Associate for Dom Casas
--- NOTE | 2024-08-19 12:46 | CT_ITS ---
WS: [id number] CT chest wo con [id number] HISTORY: Traumatic chest pain TECHNIQUE: Axial imaging performed through the thorax. Coronal and sagittal reformats are submitted. All CT scans at [facility] use at least one of these dose optimization techniques: automated exposure control; mA and/or kV adjustment per patient size (includes targeted exams where dose is mat ched to clinical indication); or iterative reconstruction. CONTRAST: None DLP: 1243.81 mGy.cm COMPARISON: 11/11/2023 Lungs and central airway: Mild hyperinflation. No pulmonary mass or nodule. Mild bronchiectasis in th e RIGHT middle lobe. No pneumonia. No pulmonary contusion. No pneumothorax. Pleura: Normal. No pleural effusion. Heart and pericardium: Normal size heart with no pericardial effusion. Mediastinum and manuela: No mediastinum or hilar adenopathy. Vessels: Mild atherosclerosis aorta. No aneurysm. Normal size pulmonary artery. Chest wall and lower neck: No soft tissue masses. Upper abdomen: Small hiatal hernia. No adrenal mass. Hepatic cyst 8 x 12 mm. Osseous structures: Numerous contiguous compression fractures throughout the thoracic spine beginning at T4-T12. Vertebroplasty at L1. T4 compression fracture is slightly progressed since 11/10/2020. Heal ed fracture RIGHT lateral 10th rib. CT/CT chest wo con [id number] IMPRESSION: 1. No pulmonary mass, pneumothorax or contusion. 2. No mediastinal or hilar adenopathy. 3. Numerous contiguous thoracic spine compression fractures. 4. Compression fracture at T4 as slightly progressed. Fracture estimated at 10 % loss of height. 5. L1 vertebroplasty.
--- NOTE | 2024-08-19 12:46 | CT_ITS ---
WS: [id number] CT THORACIC SPINE HISTORY: Traumatic upper back pain TECHNIQUE: Contiguous 2.0mm axial images are reviewed to thoracic spine. Images are reformatted in sa gittal and coronal planes. All CT scans at [facility] use at least one of these dose optimiza tion techniques: automated exposure control; mA and/or kV adjustment per patient size (includes targe candido exams where dose is matched to clinical indication); or iterative reconstruction. DLP: 1243.81 mGy.cm COMPARISON: 07/10/2023, 11/11/2023 Osteopenia. Numerous thoracic vertebral body compression fractures. Fractures began from T4-T12. Vert ebroplasty at L1. Interval change at T4. Loss of height by approximately 10 to 15% but there is increasing sclerosis. T he remaining compression fractures are stable. No additional progression. No cord compression. No significant disc protrusions. Bilateral facet joint arthropathy throughout th e thoracic spine. CT/CT thoracic spin wo con* [id number] IMPRESSION: 1. Numerous osteoporotic thoracic spine compression fractures. 2. Interval change in T4 compression deformity. Only minimal compression defor mity but there is increased sclerosis suggesting progression of the fracture. 3. The remaining thoracic spine compression fractures are stable. No retropuls ion or central thoracic canal stenosis.
[2024-08-19 12:47] LABS: Basophils % 0.2 %; Eosinophils % 0.2 %; Lymphocytes # 1.3 10^3/uL (0.8-4.8); Lymphocytes % 9.4 %; Mean Corpuscular HGB Conc 30.9 g/dL (30-55); Mean Corpuscular Hemoglobin 30.2 pg (27-33); Mean Corpuscular Volume 97.9 fl (85-98); Mean Platelet Volume 9.9 fL (7.4-10.4); Monocytes # 0.6 10^3/uL (0.2-0.9); Monocytes % 4.2 %; Neutrophils # 11.53 10^3/uL (1.8-7.7); Neutrophils % 85.6 %; Nucleated Red Blood Cells % 0 %; Platelet Count 307 10^3/cmm (157-399); Red Cell Distribution Width 12.7 % (12.1-15.1); White Blood Count 13.47 10^3/uL (3.29-11.43)
[2024-08-19 13:02] LABS: ABG PH Result 7.31 (7.35-7.45); Base Excess ABG 6.9 mmol/L (-2.0-2.0); Blood Gas Allen Test Pos; Blood Gas Operator Identificat GD; Blood Gas Sample Site Radial, left; Blood Gas Sample Type Arterial; Carboxyhemoglobin 4.9 %THgb (0.4-20.1); HCO3 ABG 35.9 mmol/L (22-26); HGB O2 Sat 92.7 % (95-100); Ionized Calcium Level - ABG 1.2 mmol/L (1.1-1.4); Methemoglobin 0.2 % (0.4-1.5); Oxygen Device NC; Oxygen Saturation ABG 97.7; PO2 ABG 94.4 mmHg (80.0-100.0); PO2 FiO2 Ratio Arterial Blood 236; Potassium Level - ABG 3.9 mmol/L (3.5-5.0); Total Hemoglobin 14.4 g/dL (12-16)
[2024-08-19 13:07] LABS: Troponin(5th) Baseline 10 ng/L (0-10)
[2024-08-19 13:11] LABS: Lactic Sepsis W/Reflex 1.6 mmol/L (0.5-2.2)
[2024-08-19 13:19] LABS: Alanine Aminotransferase 10 U/L (0-33); Albumin Level 4.5 g/dL (3.5-5.2); Alkaline Phosphatase 108 U/L (35-105); Anion Gap 14.8 (5-19); Aspartate Amino Transferase 13 U/L (0-32); Blood Urea Nitrogen 4 mg/dL (8-23); Calcium 9.7 mg/dL (8.5-10.5); Carbon Dioxide 37 mmol/L (22-29); Chloride 92 mmol/L (98-107); Creatinine Clr Calc Pharmacy 68.1299; Globulin 2.2 g/dL (1.3-4.6); Glomerular Filtration Rate 73.2 mL/min (90-130); Glucose 167 mg/dL (65-115); NT Pro B Type Natriuretic Pept 124 pg/mL (0-125); Osmolality Calculated 291 mOsm/kg (285-295); Potassium 3.8 mmol/L (3.5-5.1); Sodium 140 mmol/L (136-145); Total Bilirubin 0.4 mg/dL (0.15-1.2); Total Protein 6.7 g/dL (6.6-8.7)
[2024-08-19 13:32] LABS: Covid PCR NEGATIVE (Negative); Influenza A NEGATIVE (Negative); Influenza B NEGATIVE (Negative); Respiratory Syncytial Virus Ce NEGATIVE (Negative)
[2024-08-19] MEDS: albuterol 2.5 mg/3 mL Neb INHALATION (13:42)
[2024-08-19] MEDS: ipratropium-albuterol 3 mL Neb INHALATION ×2 (13:42→20:29)
--- NOTE | 2024-08-19 14:28 | ECG_ITS ---
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 Measurements Intervals [place] Rate: 85 P: 55 RI: 165 QRS: -30 QRSD: 91 T: 25 QT: 390 QTc: 466 Interpretive Statements SINUS RHYTHM POSSIBLE LEFT ATRIAL ENLARGEMENT [-0.1mV P-WAVE IN V1/V2] POSSIBLE ANTERIOR MYOCARDIAL INFARCTION , PROBABLY OLD [30 ms Q WAVE IN V3/V4, OR R < 0.2 mV IN V4] Compared to ECG 08/19/2024 12:17:52 No significant changes Electronically Signed On 08-20-2024 22:09:32 PROBATION OFFICER by Gui Conway M.D. [email or web address]
[2024-08-19] MEDS: doxycycline 100 MG in sodium chloride 0.9% (plus) 100 ML IV (14:38)
[2024-08-19 15:33] LABS: ABG PH Result 7.35 (7.35-7.45); Arterial Blood Gas Hematocrit 44.8 % (37-47); Base Excess ABG 5.9 mmol/L (-2.0-2.0); Blood Gas Allen Test Pos; Blood Gas Operator Identificat CAK; Blood Gas Sample Site Radial, left; Blood Gas Sample Type Arterial; HCO3 ABG 33.5 mmol/L (22-26); Oxygen Device BIPAP; PO2 ABG 83.3 mmHg (80.0-100.0); PO2 FiO2 Ratio Arterial Blood 277
[2024-08-19 15:35] LABS: ABG PCO2 60.4 mmHg (35-45)
[2024-08-19 15:54] LABS: Troponin 5 2HR 8.48 ng/L (0-10)
[2024-08-19 15:56] LABS: Troponin 5 2HR Delta -1.52 ABS# (0-10)
[2024-08-19] MEDS: HYDROmorphone 1 mg/mL INJ 1 mL IVP (16:08)
--- NOTE | 2024-08-19 16:57 | P.HP_ITS ---
Providers/Chief Complaint 2 Admitting Physician: Lissy Fernandez MD Primary Care Provider: Afia Barrett NP Chief Complaint: SOB, chest/back pain History of Present Illness Angie Naranjo is a 58 year old female with chronic history of COPD, uses 3 to 4 L of oxygen at baseline, chronic hypoxic hypercapnic respite failure, L1 vertebroplasty by Dr. Jennings in the past presented with chief complaint of worsening of back pain and shortness of breath. Patient is stating that she popped her back yesterday and then started experiencing excruciating pain on the left side that hindered her deep breathing. Because of pain she was not able to take deep breaths that prompted her visit to the ER. She is not endorsing fever, nausea, vomiting, diarrhea. Workup in the ER showed mild leukocytosis, compensated pH with hypercapnia, worsening of compression fracture at T4 level patient does not have signs of cauda equina She was taken off BiPAP at the time of my evaluation and put on 4 L nasal cannula, she is not showing any sign of respiratory distress, she is wanting to eat meal, her respiratory panel is negative,, CT chest unremarkable Review of Systems 2 Const: Denies: fever(s) Eyes: Denies: change in vision ENMT: Denies: throat pain Card: Denies: chest pain Resp: Reports: dyspnea GI: Denies: abdominal pain : Denies: flank pain Medications/Allergies Home Medications Medication Instructions Recorded Confirmed Last Taken Type Nebulizer machine #1 ea 12/06/20 08/19/24 09/18/23 Rx levothyroxine 100 mcg tablet 100 mcg PO DAILY #90 tabs 12/15/20 08/19/24 05/18/24 05:00 Rx clonidine HCl 0.1 mg tablet 0.1 mg PO DAILY PRN hypertensive 03/06/21 08/19/24 05/17/24 20:00 Rx emergency #90 tabs fluoxetine 20 mg capsule (Prozac) 20 mg PO DAILY 01/04/22 08/19/24 05/18/24 05:00 History cholecalciferol (vitamin D3) 50 2,000 unit PO DAILY #30 tabs 01/29/22 08/19/24 03/04/24 Rx mcg (2,000 unit) tablet clopidogrel 75 mg tablet 75 mg PO DAILY 02/03/22 08/19/24 05/18/24 05:00 History albuterol sulfate 90 mcg/actuation 2 inh inhalation Q8H PRN shortness 02/06/22 08/19/24 05/18/24 05:00 Rx aerosol inhaler of breath or wheezing #8.5 grams atorvastatin 40 mg tablet 40 mg PO QPM 08/23/22 08/19/24 05/18/24 05:00 History cyclobenzaprine 10 mg tablet 10 mg PO BID 10/10/22 08/19/24 05/17/24 20:00 History topiramate 25 mg tablet 25 mg PO BID 10/10/22 08/19/24 05/18/24 05:00 History pantoprazole 40 mg tablet,delayed 40 mg PO DAILY #30 tabs 09/19/23 08/19/24 05/18/24 05:00 Rx release (Protonix) oxycodone-acetaminophen 10 mg-325 1 tab PO Q8H PRN Pain 11/11/23 08/19/24 05/18/24 05:00 History mg tablet secukinumab 150 mg/mL subcutaneous 300 mg (2 mL) SUBCUT .S8bsjzd #2 mL 12/16/23 08/19/24 05/05/24 Rx pen injector (Cosentyx Pen 300 mg/2 Pens () furosemide 20 mg tablet See Rx Instructions .Route 03/30/24 08/19/24 05/18/24 05:00 Rx .COMPLEX #315 tabs nitroglycerin 0.4 mg sublingual 0.4 mg sublingual Q5M PRN chest 05/06/24 08/19/24 Unknown Rx tablet pain #30 tabs metoprolol tartrate 50 mg tablet 50 mg PO BID #60 tabs 05/19/24 08/19/24 Unknown Rx prednisone 10 mg tablet 10 mg PO DAILY #30 tabs 07/27/24 08/19/24 Unknown Rx isosorbide mononitrate 30 mg 30 mg PO BID 08/19/24 08/19/24 Unknown History tablet,extended release 24 hr Allergies Allergy/AdvReac Type Severity Reaction Status Date / Time sertraline [From Zoloft] Allergy Unknown Unknown Verified 05/18/24 08:35 aspirin Allergy Unknown Verified 05/18/24 08:35 buspirone [From BuSpar] Allergy Unknown Verified 05/18/24 08:35 codeine Allergy Unknown Verified 05/18/24 08:35 diltiazem Allergy Unknown Verified 05/18/24 08:35 duloxetine Allergy Unknown Verified 05/18/24 08:35 gabapentin [From Neurontin] Allergy Unknown Verified 05/18/24 08:35 ibuprofen Allergy UNKNOWN Verified 05/18/24 08:35 iodine Allergy Unknown Verified 05/18/24 08:35 ketorolac [From Toradol] Allergy UNKNOWN Verified 05/18/24 08:35 lisinopril Allergy Unknown Verified 05/18/24 08:35 Penicillins Allergy Unknown Verified 05/18/24 08:35 pregabalin [Lyrica] Allergy Unknown Verified 05/18/24 08:35 Sulfa (Sulfonamide Allergy Unknown Verified 05/18/24 08:35 Antibiotics) tizanidine Allergy Unknown Verified 05/18/24 08:35 tramadol Allergy Unknown Verified 05/18/24 08:35 varenicline [From Chantix] Allergy UNKNOWN Verified 05/18/24 08:35 venlafaxine Allergy Unknown Verified 05/18/24 08:35 verapamil Allergy ADR-Fatigue Verified 05/18/24 08:35 d PFSH Acute 2 PFSH: Medical History Pneumonia Psoriatic arthritis Compression fracture Acute respiratory failure with hypoxia Community acquired pneumonia Facial swelling Ischemic stroke Respiratory failure Anxiety Bereavement counseling Immunization counseling High risk medication use Depression with anxiety Aortic regurgitation Hypothyroidism GERD without esophagitis Intermittent palpitations Hyperlipidemia Seronegative rheumatoid arthritis Essential (primary) hypertension Eczema Inflammatory arthritis Fibromyalgia Polyarticular psoriatic arthritis Surgical History H/O esophagogastroduodenoscopy (11/07/20) H/O breast biopsy Status post colonoscopy (11/07/20) H/O thyroidectomy Hx of cholecystectomy History of tonsillectomy Family History Mother Rheumatoid arthritis Father Rheumatoid arthritis Leukemia Denies family history of Lupus Social History Smoking and tobacco/nicotine status: current some day tobacco/nicotine user cigarettes Packs smoked per day: 0.25 Years cigarettes smoked: 25 [ Other cigarette details: 2ppd x 25 years, currently trying to quit] Second hand smoke exposure: Yes Alcohol intake: never Substance/Drug Use: never Marital status: Current occupational status: disabled Current gender identity: Female Vitals/I&O/Wt Last Vital Signs Temp 97.5 F L 08/19/24 12:15 Pulse 90 08/19/24 16:10 Resp 18 08/19/24 16:08 BP 150/102 08/19/24 16:10 Pulse Ox 97 08/19/24 16:10 O2 Del Method Room Air 08/19/24 16:10 O2 Flow Rate 3 08/19/24 13:16 FiO2 30 08/19/24 15:33 08/19/24 08/19/24 08/19/24 06:59 14:59 22:59 Intake Total 100 / 100 Balance 100 / 100 Weight last 48 hrs Weight 72.575 kg Physical Exam 2 Narrative: Patient is awake and alert Taken off BiPAP currently on 5 L No active Rester distress No active sign of cyanosis Patient is pleasant and cooperative anxious appearing Complaining of back pain No signs of cauda equina Sensations intact medial thigh area, able to move her legs She does have paresthesia left thigh area Abdomen soft Looks euvolemic S1, S2 Data 08/19/24 12:23 08/19/24 12:23 Micro: Microbiology 08/19/24 12:53 Blood Culture - Preliminary Blood SPECIMEN COLLECTED 08/19/24 12:46 Blood Culture - Preliminary Blood SPECIMEN COLLECTED A&P Assessment and plan (1) Compression fracture: (2) Fibromyalgia: (3) Lumbar stenosis with neurogenic claudication: (4) Vertebral compression fracture: (5) COPD (chronic obstructive pulmonary disease): (6) Eczema: Qualifiers: Eczema type: unspecified Qualified Code(s): L30.9 - Dermatitis, unspecified (7) Smoking: Plan Mild acute COPD exacerbation Increased work of breathing secondary to pain coming from her back She was not able to take deep breaths Taken off BiPAP put on 4L nasal cannula No active sign of chest pain, no fever nausea vomiting or she is endorsing green sputum production Continue DuoNeb treatment along budesonide, no active wheezing, discontinue IV steroids Discontinue p.o. Levaquin in next 48 hours if remains afebrile and no significant sputum production worsening Worsening T4 compression fracture Previous history of L1 vertebroplasty No signs of cauda equina Will consult Dr. Michaela FRAIRE brace, pain management with opioids and bowel regimen Came from home uses 4 L of oxygen at baseline Full code Cardiac diet Anticipating discharge within 48 hours DVT prophylaxis on board Attestations 2 Medical Necessity Statement*: Anticipating discharge within 48 hours Diagnoses Compression fracture Fibromyalgia M79.7 Lumbar stenosis with neurogenic claudication M48.062 Vertebral compression fracture M48.50XA COPD (chronic obstructive pulmonary disease) J44.9 Eczema, unspecified type L30.9 Eczema type: unspecified Smoking F17.200
--- NOTE | 2024-08-19 18:14 | ECG_ITS ---
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 Measurements Intervals [place] Rate: 79 P: 68 RI: 161 QRS: -24 QRSD: 81 T: 51 QT: 400 QTc: 460 Interpretive Statements SINUS RHYTHM LOW QRS VOLTAGE IN PRECORDIAL LEADS [QRS DEFLECTION < 1.0 mV IN CHEST LEADS] POSSIBLE ANTERIOR MYOCARDIAL INFARCTION , OF INDETERMINATE AGE [30 ms Q WAVE IN V3/V4, OR R < 0.2 mV IN V4] Compared to ECG 08/19/2024 14:28:51 Low QRS voltage now present Myocardial infarct finding still present Electronically Signed On 08-20-2024 22:08:24 TRANSPORTATION MAINTENANCE WORKER by Gui Conway M.D. [id number]
[2024-08-19] MEDS: isosorbide mononitrate ER 30 mg Tablet PO (19:06)
[2024-08-19] MEDS: metoprolol tartrate 50 mg Tablet PO (19:06)
[2024-08-19] MEDS: topiramate 25 mg Tablet PO (19:06)
[2024-08-19] MEDS: cyclobenzaprine 10 mg Tablet PO (19:06)
[2024-08-19] MEDS: atorvastatin 40 mg Tablet PO (19:06)
[2024-08-19] MEDS: oxyCODONE-APAP 10-325 mg Tablet 1 TAB PO (19:40)
[2024-08-19] MEDS: methylPREDNISolone sod succ 125 mg/2 mL INJ 60 MG IVP (19:41)
[2024-08-19] MEDS: budesonide 0.5 mg/2 mL Neb INHALATION (20:28)
[2024-08-19 21:58] LABS: Troponin 5 6HR 7.19 ng/L (0-10)
[2024-08-19 22:00] LABS: Troponin 5 6HR Delta -2.81 ng/L (0-12)
[2024-08-20] VITALS (17 sets, daily range): BP systolic 135–161; BP diastolic 63–83; PULSE 74–102; RESP 16–21; TEMP 36.6–37.1; O2SAT 92–98
[2024-08-20] MEDS: ipratropium-albuterol 3 mL Neb INHALATION ×6 (01:21→20:22)
[2024-08-20] MEDS: oxyCODONE-APAP 10-325 mg Tablet 1 TAB PO ×2 (02:23→10:43)
[2024-08-20 05:29] LABS: Basophils % 0.1 %; Hematocrit 44.2 % (36-47); Lymphocytes # 0.8 10^3/uL (0.8-4.8); Lymphocytes % 8.2 %; Mean Corpuscular HGB Conc 31.2 g/dL (30-55); Mean Corpuscular Hemoglobin 30.7 pg (27-33); Mean Corpuscular Volume 98.4 fl (85-98); Mean Platelet Volume 10.2 fL (7.4-10.4); Monocytes # 0.3 10^3/uL (0.2-0.9); Monocytes % 2.6 %; Neutrophils % 88.6 %; Nucleated Red Blood Cells % 0 %; Platelet Count 290 10^3/cmm (157-399); Red Blood Count 4.49 10^6/uL (3.85-5.65); Red Cell Distribution Width 12.8 % (12.1-15.1); White Blood Count 10.15 10^3/uL (3.29-11.43)
[2024-08-20] MEDS: levothyroxine 100 mcg Tablet PO (05:30)
[2024-08-20 05:58] LABS: Anion Gap 13.9 (5-19); Blood Urea Nitrogen 10 mg/dL (8-23); Carbon Dioxide 36 mmol/L (22-29); Chloride 91 mmol/L (98-107); Creatinine Clr Calc Pharmacy 78.8417; Glomerular Filtration Rate 85.4 mL/min (90-130); Glucose 173 mg/dL (65-115); Magnesium 1.8 mg/dL (1.7-2.3); Osmolality Calculated 287 mOsm/kg (285-295); Potassium 3.9 mmol/L (3.5-5.1); Sodium 137 mmol/L (136-145)
[2024-08-20] MEDS: budesonide 0.5 mg/2 mL Neb INHALATION ×2 (07:34→20:22)
[2024-08-20] MEDS: cyclobenzaprine 10 mg Tablet PO ×2 (10:39→17:45)
[2024-08-20] MEDS: fluoxetine 20 mg Capsule PO (10:39)
[2024-08-20] MEDS: isosorbide mononitrate ER 30 mg Tablet PO ×2 (10:39→17:45)
[2024-08-20] MEDS: pantoprazole DR 40 mg Tablet PO (10:39)
[2024-08-20] MEDS: clopidogrel 75 mg Tablet PO (10:40)
[2024-08-20] MEDS: topiramate 25 mg Tablet PO ×2 (10:40→17:45)
[2024-08-20] MEDS: levoFLOXacin 750 mg Tablet PO (10:40)
[2024-08-20] MEDS: metoprolol tartrate 50 mg Tablet PO ×2 (10:40→17:45)
[2024-08-20] MEDS: oxyCODONE 10 mg ER (12 HR) Tablet PO ×2 (13:57→17:45)
--- NOTE | 2024-08-20 14:39 | P.PN_ITS ---
Subjective 2 Subjective: seen today pt states she used to take oxymorphine long acting with short acting medication in past she states she would like her pain managed better breathing has improved Vitals/I&O/Wt Last Vital Signs Temp 98.3 F 08/20/24 07:57 Pulse 102 H 08/20/24 11:39 Resp 20 H 08/20/24 13:57 BP 135/72 08/20/24 11:39 Pulse Ox 92 08/20/24 11:39 O2 Del Method Nasal Cannula 08/20/24 11:39 O2 Flow Rate 2 08/20/24 10:59 FiO2 30 08/19/24 18:23 08/19/24 08/20/24 08/20/24 22:59 06:59 14:59 Intake Total 100 / 100 480 / 480 Output Total 400 / 400 Balance 100 / 100 -400 / -300 480 / 480 Weight last 48 hrs Weight 74.616 kg Weight 74.389 kg Weight 72.575 kg Physical Exam 2 Narrative: Patient is awake and alert on nc at this time No active respiratory distress No active sign of cyanosis Patient is pleasant and cooperative anxious appearing Complaining of back pain, has tlso brace in place No signs of cauda equina Sensations intact medial thigh area, able to move her legs She does have paresthesia left thigh area Abdomen soft Looks euvolemic S1, S2 Data 08/20/24 04:59 08/20/24 04:59 Micro: Microbiology 08/19/24 12:53 Blood Culture - Preliminary Blood NEGATIVE TO DATE 08/19/24 12:46 Blood Culture - Preliminary Blood NEGATIVE TO DATE A&P Assessment and plan (1) Compression fracture: (2) Fibromyalgia: (3) Lumbar stenosis with neurogenic claudication: (4) Vertebral compression fracture: (5) COPD (chronic obstructive pulmonary disease): (6) Eczema: Qualifiers: Eczema type: unspecified Qualified Code(s): L30.9 - Dermatitis, unspecified (7) Smoking: Plan Mild acute COPD exacerbation Increased work of breathing secondary to pain coming from her back She was not able to take deep breaths Taken off BiPAP put on 4L nasal cannula No active sign of chest pain, no fever nausea vomiting or she is endorsing green sputum production Continue DuoNeb treatment along budesonide, no active wheezing, discontinue IV steroids Discontinue p.o. Levaquin in next 48 hours if remains afebrile and no significant sputum production worsening Worsening T4 compression fracture Previous history of L1 vertebroplasty No signs of cauda equina Will consult Dr. Jennings TLSO brace, pain management with opioids and bowel regimen Came from home uses 4 L of oxygen at baseline Full code Cardiac diet Anticipating discharge within 48 hours DVT prophylaxis on board 08/20/[address]24 place on oxycontin 10 bid continue oxycodone tid prn continue tlso brace plan to dc in am pt at baseline o2 will dc on po levaquin Attestations 2 Medical Necessity Statement*: pain management Diagnoses Compression fracture Fibromyalgia M79.7 Lumbar stenosis with neurogenic claudication M48.062 Vertebral compression fracture M48.50XA COPD (chronic obstructive pulmonary disease) J44.9 Eczema, unspecified type L30.9 Eczema type: unspecified Smoking F17.200
[2024-08-20] MEDS: atorvastatin 40 mg Tablet PO (17:45)
[2024-08-20] MEDS: acetaminophen 325 mg Tablet 650 MG PO (19:35)
[2024-08-21] VITALS (9 sets, daily range): BP systolic 152–172; BP diastolic 75–80; PULSE 73–90; RESP 16–20; TEMP 36.3–36.7; O2SAT 94–99
[2024-08-21] MEDS: ipratropium-albuterol 3 mL Neb INHALATION ×4 (00:41→12:07)
[2024-08-21] MEDS: acetaminophen 325 mg Tablet 650 MG PO ×2 (04:23→10:38)
[2024-08-21] MEDS: oxyCODONE-APAP 10-325 mg Tablet 1 TAB PO ×2 (04:27→12:24)
[2024-08-21] MEDS: levothyroxine 100 mcg Tablet PO (05:42)
[2024-08-21] MEDS: budesonide 0.5 mg/2 mL Neb INHALATION (07:35)
[2024-08-21] MEDS: fluoxetine 20 mg Capsule PO (08:51)
[2024-08-21] MEDS: pantoprazole DR 40 mg Tablet PO (08:51)
[2024-08-21] MEDS: isosorbide mononitrate ER 30 mg Tablet PO (08:51)
[2024-08-21] MEDS: oxyCODONE 10 mg ER (12 HR) Tablet PO (08:51)
[2024-08-21] MEDS: clopidogrel 75 mg Tablet PO (08:51)
[2024-08-21] MEDS: topiramate 25 mg Tablet PO (08:51)
[2024-08-21] MEDS: metoprolol tartrate 50 mg Tablet PO (08:51)
[2024-08-21] MEDS: cyclobenzaprine 10 mg Tablet PO (08:51)
[2024-08-21] MEDS: levoFLOXacin 750 mg Tablet PO (08:51)
--- NOTE | 2024-08-21 12:59 | P.DS_ITS ---
Discharge Providers Date of Admission: 08/19/24 16:14 Date of Discharge: August 21, 2024 Attending Provider at Admission: Lissy Fernandez MD Attending Provider at Discharge: Lissy Fernandez MD Primary Care Provider: Afia Barrett NP Diagnoses at Discharge Discharge Diagnosis (1) Compression fracture: Status: Acute (2) Fibromyalgia: Status: Chronic (3) Lumbar stenosis with neurogenic claudication: Status: Acute (4) Vertebral compression fracture: Status: Acute (5) COPD (chronic obstructive pulmonary disease): Status: Acute (6) Eczema: Status: Acute Qualifiers: Eczema type: unspecified Qualified Code(s): L30.9 - Dermatitis, unspecified (7) Smoking: Status: Acute Reason for Visit Reason for Visit: SOB, chest/back pain Hospital Course Hospital Course Patient presented to the hospital with shortness of breath and back pain. She said her main complaint was back pain. Was found to have worsening T4 compression fracture. Discussed with Dr. Jennings who recommended a TLSO brace and pain management at this time. He will see her in clinic upcoming Friday for further evaluation and management. She was kept in the hospital for pain management mainly. OxyContin was added. Apparently has a history of taking opioids. Was on oxymorphone in the past. She is on oxycodone 3 times daily at home. I gave her 3-day supply of OxyContin long-acting so she can make it to her appointment on Friday. For COPD exacerbation she was given steroids and discharged home on oral Levaquin. Patient in agreement with the plan. Will discharge home at this time. Physical Exam Narrative: Patient is awake and alert on nc at this time No active respiratory distress No active sign of cyanosis Patient is pleasant and cooperative anxious appearing Complaining of back pain, has tlso brace in place No signs of cauda equina Abdomen soft Looks euvolemic S1, S2 Discharge Data Studies Completed and Pending Completed Studies During Hospitalization Category Date Time Status CT chest wo con [id number] Stat Cat Scan 08/19/24 12:[address] thoracic spin wo con* [id number] Stat Cat Scan 08/19/24 12:46 Completed XR chest 1V portable [id number] Stat Exams 08/19/24 12:20 Completed Pending at discharge Category Date Time Status Blood Culture Stat Lab 08/19/24 12:53 Results Radiology Impressions Chest X-Ray 08/19/24 12:20 IMPRESSION: 1. Negative chest. Chest CT 08/19/24 12:46 IMPRESSION: 1. No pulmonary mass, pneumothorax or contusion. 2. No mediastinal or hilar adenopathy. 3. Numerous contiguous thoracic spine compression fractures. 4. Compression fracture at T4 as slightly progressed. Fracture estimated at 10% loss of height. 5. L1 vertebroplasty. Thoracic Spine CT 08/19/24 12:46 IMPRESSION: 1. Numerous osteoporotic thoracic spine compression fractures. 2. Interval change in T4 compression deformity. Only minimal compression deformity but there is increased sclerosis suggesting progression of the fracture. 3. The remaining thoracic spine compression fractures are stable. No retropulsion or central thoracic canal stenosis. Laboratory Results WBC 10.15 10^3/uL (3.29-11.43) 08/20/24 04:59 RBC 4.49 10^6/uL (3.85-5.65) 08/20/24 04:59 Hgb 13.80 g/dL (11.27-16.99) 08/20/24 04:59 Hct 44.2 % (36-47) 08/20/24 04:59 MCV 98.4 fl (85-98) H 08/20/24 04:59 MCH 30.7 pg (27-33) 08/20/24 04:59 MCHC 31.2 g/dL (30-55) 08/20/24 04:59 RDW 12.8 % (12.1-15.1) 08/20/24 04:59 Plt Count 290 10^3/cmm (157-399) 08/20/24 04:59 MPV 10.2 fL (7.4-10.4) 08/20/24 04:59 Neut % (Auto) 88.6 % 08/20/24 04:59 Lymph % (Auto) 8.2 % 08/20/24 04:59 Burt % (Auto) 2.6 % 08/20/24 04:59 Eos % (Auto) 0.0 % 08/20/24 04:59 Baso % (Auto) 0.1 % 08/20/24 04:59 Neut # (Auto) 9.00 10^3/uL (1.8-7.7) H 08/20/24 04:59 Lymph # (Auto) 0.8 10^3/uL (0.8-4.8) 08/20/24 04:59 Burt # (Auto) 0.3 10^3/uL (0.2-0.9) 08/20/24 04:59 Eos # (Auto) 0.0 10^3/uL (0.0-0.8) 08/20/24 04:59 Baso # (Auto) 0.0 10^3/uL (0.0-0.1) 08/20/24 04:59 Nucleated RBC % (auto) 0 % 08/20/24 04:59 Nucleated RBCs # 0.0 /100WBC 08/20/24 04:59 Specimen Type Arterial 08/19/24 15:21 Sample Site Radial, left 08/19/24 15:21 ABG pH 7.35 (7.35-7.45) 08/19/24 15:21 ABG pCO2 60.4 mmHg (35-45) H* 08/19/24 15:21 ABG pO2 83.3 mmHg (80.0-100.0) 08/19/24 15:21 ABG PO2/FiO2 Ratio 277 08/19/24 15:21 ABG HCO3 33.5 mmol/L (22-26) H 08/19/24 15:21 ABG O2 Saturation 97.7 08/19/24 12:45 ABG Base Excess 5.9 mmol/L (-2.0-2.0) H 08/19/24 15:21 Rudy Test Pos 08/19/24 15:21 A-a O2 Gradient 14.0 mmHg (5-10) H 08/19/24 12:45 Hematocrit 44.8 % (37-47) 08/19/24 15:21 Hgb O2 Saturation 92.7 % (95-100) L 08/19/24 12:45 Carboxyhemoglobin 4.9 %THgb (0.4-20.1) 08/19/24 12:45 Methemoglobin 0.2 % (0.4-1.5) L 08/19/24 12:45 Total Hemoglobin 14.4 g/dL (12-16) 08/19/24 12:45 Sodium 141.0 mmol/L (131-143) 08/19/24 12:45 Potassium 3.9 mmol/L (3.5-5.0) 08/19/24 12:45 Glucose 172.0 mg/dL (70-115) H 08/19/24 12:45 Ionized Calcium 1.2 mmol/L (1.1-1.4) 08/19/24 12:45 O2 Delivery Device Bipap 08/19/24 15:21 O2 Liters/Min 5.0 % 08/19/24 12:45 FiO2 30.0 % 08/19/24 15:21 Dental Scheduling Coordinator ID Cak 08/19/24 15:21 Sodium 137 mmol/L (136-145) 08/20/24 04:59 Potassium 3.9 mmol/L (3.5-5.1) 08/20/24 04:59 Chloride 91 mmol/L (98-107) L 08/20/24 04:59 Carbon Dioxide 36 mmol/L (22-29) H 08/20/24 04:59 Anion Gap 13.9 (5-19) 08/20/24 04:59 BUN 10 mg/dL (8-23) 08/20/24 04:59 Creatinine 0.7 mg/dL (0.5-0.9) 08/20/24 04:59 GFR Calculation 85.4 mL/min (90-130) L 08/20/24 04:59 Glucose 173 mg/dL (65-115) H 08/20/24 04:59 Calculated Osmolality 287 mOsm/kg (285-295) 08/20/24 04:59 Lactic Acid 1.6 mmol/L (0.5-2.2) 08/19/24 12:23 Calcium 10.0 mg/dL (8.5-10.5) 08/20/24 04:59 Magnesium 1.8 mg/dL (1.7-2.3) 08/20/24 04:59 Total Bilirubin 0.4 mg/dL (0.15-1.2) 08/19/24 12:23 AST 13 U/L (0-32) 08/19/24 12:23 ALT 10 U/L (0-33) 08/19/24 12:23 Alkaline Phosphatase 108 U/L (35-105) H 08/19/24 12:23 Troponin T Baseline 10 ng/L (0-10) 08/19/24 12:23 Troponin T 120 Minute 8.48 ng/L (0-10) 08/19/24 15:17 Delta Troponin T -1.52 ABS# (0-10) L 08/19/24 15:17 Troponin T Hi Sens 6Hr 7.19 ng/L (0-10) 08/19/24 20:55 Troponin T Hi Sens 6Hr Delta -2.81 ng/L (0-12) L 08/19/24 20:55 C-Reactive Protein 4.0 mg/L (0.0-4.9) 08/19/24 12:23 NT-Pro-B Natriuret Pep 124 pg/mL (0-125) 08/19/24 12:23 Total Protein 6.7 g/dL (6.6-8.7) 08/19/24 12:23 Albumin 4.5 g/dL (3.5-5.2) 08/19/24 12:23 Globulin 2.2 g/dL (1.3-4.6) 08/19/24 12:23 Coronavirus (PCR) Negative (Negative) 08/19/24 12:37 Influenza A (PCR) Negative (Negative) 08/19/24 12:37 Influenza Type B (PCR) Negative (Negative) 08/19/24 12:37 RSV (PCR) Negative (Negative) 08/19/24 12:37 Vitals Last Vital Signs Temp 98.0 F 08/21/24 11:04 Pulse 89 08/21/24 12:08 Resp 16 08/21/24 12:24 BP 172/80 08/21/24 11:04 Pulse Ox 94 08/21/24 12:08 O2 Del Method Nasal Cannula 08/21/24 12:08 O2 Flow Rate 3 08/21/24 12:08 FiO2 30 08/19/24 18:23 Discharge Plan Discharge Patient Disposition: Home Condition: Stable Prescriptions: New levofloxacin 750 mg Tablet 750 mg PO DAILY Qty: 5 0RF oxycodone [OxyContin] 10 mg Tablet,Oral Only,Ext.Rel.12 Hr 10 mg PO BID 3 Days Qty: 6 0RF Continued cyclobenzaprine 10 mg tablet 10 mg PO BID topiramate 25 mg tablet 25 mg PO BID fluoxetine [Prozac] 20 mg capsule 20 mg PO DAILY (DME) Nebulizer machine See Rx Instructions .Route .MEDSUPPLY Qty: 1 0RF Rx Instructions: As directed levothyroxine 100 mcg tablet 100 mcg PO DAILY Qty: 90 0RF clonidine HCl 0.1 mg tablet 0.1 mg PO DAILY PRN (Reason: hypertensive emergency) Qty: 90 1RF cholecalciferol (vitamin D3) 50 mcg (2,000 unit) tablet 2,000 unit PO DAILY Qty: 30 0RF Rx Instructions: AT 0800 Cosentyx Pen (2 Pens) 150 mg/mL pen injector 300 mg SUBCUT .[id number] Qty: 2 4RF furosemide 20 mg tablet See Rx Instructions .ROUTE .COMPLEX Qty: 315 0RF Dose Instruction: TAKE ONE TABLET BY MOUTH EVERY DAY; alternating with TWO EVERY DAY Rx Instructions: TAKE ONE TABLET BY MOUTH EVERY DAY; alternating with TWO EVERY DAY nitroglycerin 0.4 mg tablet, sublingual 0.4 mg sublingual Q5M PRN (Reason: chest pain) Qty: 30 6RF Rx Instructions: do not exceed 3 doses per episode prednisone 10 mg tablet 10 mg PO DAILY Qty: 30 1RF atorvastatin 40 mg tablet 40 mg PO QPM isosorbide mononitrate 30 mg tablet extended release 24 hr 30 mg PO BID clopidogrel 75 mg tablet 75 mg PO DAILY Hold Instructions: Resume on 09/21/23. albuterol sulfate 90 mcg/actuation HFA aerosol inhaler 2 inh inhalation Q8H PRN (Reason: shortness of breath or wheezing) Qty: 8.5 3RF pantoprazole [Protonix] 40 mg tablet,delayed release (DR/EC) 40 mg PO DAILY Qty: 30 5RF oxycodone-acetaminophen 10-325 mg tablet 1 tab PO Q8H PRN (Reason: Pain) metoprolol tartrate 50 mg tablet 50 mg PO BID Qty: 60 5RF Discharge Orders: Discharge Order (Routine); Ordered 08/21/24 Ordered By: Lissy Fernandez Referrals: Kelvin Jennings DO [Physician] - 1-3 days (Fridayaug 24 f/u We have notified your physician's clinic of the need for a follow-up appointment to be scheduled. If you have not heard from them within the next 2 business days, please call them directly. ) Afia Barrett NP [Primary Care Provider] - 4-7 days (We have notified your physician's clinic of the need for a follow-up appointment to be scheduled. If you have not heard from them within the next 2 business days, please call them directly. ) Discharge Diet: Usual diet Discharge Activity: Resume usual activity Patient Instructions: Levofloxacin (By mouth), Oxycodone, Slow Release (By mouth), Vertebral Compression Fracture (DC), COPD (Chronic Obstructive Pulmonary Disease) (DC), COPD Stoplight, Opioid Safety Activity Restrictions/Additional Instructions: Please follow up with Dr. Jennings's office aug 24 upcoming friday for further evaluation. Discharge Attestations Time Spent in Discharge Care*: greater than 30 min Quality Metrics Clinical Quality Measures [ No reported AMI, CVA or VTE this stay] Coding Level of Care Code Acute Code for Chg Fwd Diagnoses Compression fracture Fibromyalgia M79.7 Lumbar stenosis with neurogenic claudication M48.062 Vertebral compression fracture M48.50XA COPD (chronic obstructive pulmonary disease) J44.9 Eczema, unspecified type L30.9 Eczema type: unspecified Smoking F17.200
--- NOTE | 2024-08-21 13:24 | PC.NURSE ---
Called patient's daughter and left a message to see if she can come and pick the patient up.
--- NOTE | 2024-08-21 14:12 | PC.NURSE ---
Discharge paperwork has been signed. Patient is awaiting ride from [facility] for transport at this time.
== END 2024-08-21 14:58 | disposition home or self-care (01) ==
LOC: ER 14:15 → MEDSURG 16:15
PROVIDERS: Internal Medicine; Admitting Provider Internal Medicine; Emergency Provider Emergency Medicine; PCP Nurse Practitioner Family; Visit Provider Internal Medicine
DX: M48.54XA Collapsed vertebra, not elsewhere classified, thoracic region, initial encounter for fracture (principal); M79.7 Fibromyalgia; M48.062 Spinal stenosis, lumbar region with neurogenic claudication; J44.1 Chronic obstructive pulmonary disease with (acute) exacerbation; L30.9 Dermatitis, unspecified; Z99.81 Dependence on supplemental oxygen; E03.9 Hypothyroidism, unspecified; E78.5 Hyperlipidemia, unspecified; F17.210 Nicotine dependence, cigarettes, uncomplicated
CPT/HCPCS: 0241U; 36415; 36600; 71045; 71250; 72128; 80048; 80051; 80053; 82330; 82803; 82805; 83605; 83735; 83880; 84484; 85025; 86140; 87040; 93005; 94640; 94660; 96365; 96375; 97110; 97116; 97161; 97530; 97760; 99291; G0378; J1171; J2919; J3490; J7613; J7626; L0456

== ENCOUNTER → 2024-08-26 08:16 | Outpatient (BNVA) | payer MEDICARE, MEDICAID, SELFPAY | PROVIDERS: PCP Nurse Practitioner Family; Visit Provider Orthopaedic Surgery | DX: M48.54XA Collapsed vertebra, not elsewhere classified, thoracic region, initial encounter for fracture; X58.XXXA Exposure to other specified factors, initial encounter; M54.9 Dorsalgia, unspecified | CPT/HCPCS: 72072; 72100; 99214 ==

== ENCOUNTER 2024-10-01 07:27 | Outpatient (CLI) | payer MEDICARE, MEDICAID, SELFPAY ==
--- NOTE | 2024-10-01 07:15 | MR_ITS ---
WS: [id number] MRI THORACIC SPINE WITHOUT CONTRAST TECHNIQUE: Sagittal T1, T2 and STIR imaging. Axial T2 imaging. Noncontrast imaging obtained. CLINICAL INFORMATION: Compression FX COMPARISON: None. FINDINGS: Some images degraded by motion artifact. Mild thoracic curve. Mild thoracic kyphosis. Prior kyphoplasty changes at L1 and L2. Numerous chronic compression fractures. Acute compression fractures with edema involving the T3 and T4 vertebral bodi es. Diffuse edema T3 vertebral body with mild compression of the inferior endplate. Compression of th e inferior endplate of T4 with acute edema. Findings compatible with acute compression at these level s. Approximate 20% loss of vertebral body height at T3. No retropulsion. Small disc protrusions in the thoracic spine more prominent at T6-T7 T7-T8 T8-T9 and T11-12 with slig ht indentation cervical cord and mild central canal stenosis. Chronic appearing compression fractures at T5, T6, T7, T8, T9, T10, T11, and T12. MR/MR thoracic spin wo con* [id number] IMPRESSION: 1. Acute compression fractures involving the inferior endplate T3 and inferior endplate T4 with associated acute edema. No retropulsion. 2. Otherwise numerous chronic compression fractures similar in appearance to t he prior studies. 3. Small central protrusion similar to the prior studies with mild central can al stenosis. 4. Kyphoplasties at L1 and L2.
== END 2024-10-01 07:28 | disposition home or self-care (01) ==
PROVIDERS: PCP Nurse Practitioner Family; Visit Provider Orthopaedic Surgery
DX: S22.039A Unspecified fracture of third thoracic vertebra, initial encounter for closed fracture (principal); S22.049A Unspecified fracture of fourth thoracic vertebra, initial encounter for closed fracture; R93.7 Abnormal findings on diagnostic imaging of other parts of musculoskeletal system; M51.24 Other intervertebral disc displacement, thoracic region; M48.04 Spinal stenosis, thoracic region; M43.8X4 Other specified deforming dorsopathies, thoracic region; M40.294 Other kyphosis, thoracic region; X58.XXXA Exposure to other specified factors, initial encounter
CPT/HCPCS: 72146

== ENCOUNTER → 2024-10-12 08:26 | Outpatient (BNVA) | payer MEDICARE, MEDICAID, SELFPAY | PROVIDERS: PCP Nurse Practitioner Family; Visit Provider Orthopaedic Surgery | DX: S22.030D Wedge compression fracture of third thoracic vertebra, subsequent encounter for fracture with routine healing (principal); X58.XXXD Exposure to other specified factors, subsequent encounter | CPT/HCPCS: 99213 ==

== ENCOUNTER 2024-10-21 18:11 | Emergency (ER) | payer MEDICARE, MEDICAID, SELFPAY ==
[2024-10-21] VITALS (7 sets, daily range): BP systolic 132–156; BP diastolic 73–95; PULSE 86–93; RESP 17–20; TEMP 36.6; O2SAT 96–99; BMI 30.2
--- NOTE | 2024-10-21 18:21 | ECG_ITS ---
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: : 1965 Requested By: Maria Alejandra Moyer Order Number: [id number] Reading MD: COLLIN BUCIO Measurements Intervals [place] Rate: 92 P: 66 SC: 187 QRS: -44 QRSD: 70 T: 29 QT: 347 QTc: 431 Interpretive Statements SINUS RHYTHM POSSIBLE LEFT ATRIAL ENLARGEMENT [-0.1mV P-WAVE IN V1/V2] POSSIBLE LEFT VENTRICULAR HYPERTROPHY [VOLTAGE CRITERIA PLUS LAE OR QRS WIDENING] INFERIOR MYOCARDIAL INFARCTION , PROBABLY OLD [40+ ms Q WAVE AND/OR ST/T ABNORMALITY IN II/aVF] ANTEROSEPTAL MYOCARDIAL INFARCTION , OF INDETERMINATE AGE [40+ ms Q WAVE IN V1-V4] Compared to ECG 08/19/2024 18:14:38 No significant changes Electronically Signed On 10-23-2024 19:29:01 REFERRAL MANAGER by COLLIN BUCIO [id number]
--- NOTE | 2024-10-21 18:40 | XRR_ITS ---
PROCEDURE INFORMATION: Exam: XR Chest Exam date and time: 10/21/2024 7:00 PM Age: 58 years old Clinical indication: Shortness of breath TECHNIQUE: Imaging protocol: Radiologic exam of the chest. Views: 1 view. COMPARISON: CT chest con [id number] 08/19/2024 1:00 PM FINDINGS: Lungs: Right lung base linear/streaky opacities which silhouette portions of the hemidiaphragm and right heart border. Pleural spaces: Perhaps small amount of blunting of the right costophrenic angle. Heart/Mediastinum: Unchanged. Bones/joints: Unremarkable. XR/XR chest 1V portable [id number] IMPRESSION: Nonspecific findings of the right lung base which can be seen in infection with parapneumonic effusion. Correlate clinically.
--- NOTE | 2024-10-21 18:53 | W.ED.SOB ---
HPI - SOB/Dyspnea General: Chief Complaint: Shortness of Breath/Dyspnea Stated Complaint: cp,back pain, sob Time Seen by Provider: 10/21/24 18:25 History of Present Illness: HPI Narrative: 58-year-old female with a history of obesity, anxiety, COPD, tobacco dependence, chronic hypoxemic respiratory failure on 3 L nasal cannula at all times, fibromyalgia, hypertension, hyperlipidemia, GERD, she reports a history of stroke, and she is on chronic anticoagulation with Plavix she tells me who presents emergency room with cough, body aches and shortness of breath that has been going on for about 3 days now. She has had some pleuritic chest pain. Some nausea. No abdominal pain. She is currently satting in the mid 90s on her home 3 L nasal cannula. Related Data Home Medications ?Medication ?Instructions ?Recorded ?Confirmed fluoxetine 20 mg capsule (Prozac) 20 mg PO DAILY 01/04/22 10/12/24 clopidogrel 75 mg tablet 75 mg PO DAILY 02/03/22 10/12/24 atorvastatin 40 mg tablet 40 mg PO QPM 08/23/22 10/12/24 cyclobenzaprine 10 mg tablet 10 mg PO BID 10/10/22 10/12/24 topiramate 25 mg tablet 25 mg PO BID 10/10/22 10/12/24 oxycodone-acetaminophen 10 mg-325 1 tab PO Q8H PRN Pain 11/11/23 10/12/24 mg tablet isosorbide mononitrate 30 mg 30 mg PO BID 08/19/24 10/12/24 tablet,extended release 24 hr Previous Rx's ?Medication ?Instructions ?Recorded Nebulizer machine #1 ea 12/06/20 levothyroxine 100 mcg tablet 100 mcg PO DAILY #90 tabs 12/15/20 clonidine HCl 0.1 mg tablet 0.1 mg PO DAILY PRN hypertensive 03/06/21 emergency #90 tabs cholecalciferol (vitamin D3) 50 2,000 unit PO DAILY #30 tabs 01/29/22 mcg (2,000 unit) tablet albuterol sulfate 90 mcg/actuation 2 inh inhalation Q8H PRN shortness 02/06/22 aerosol inhaler of breath or wheezing #8.5 grams pantoprazole 40 mg tablet,delayed 40 mg PO DAILY #30 tabs 09/19/23 release (Protonix) secukinumab 150 mg/mL subcutaneous 300 mg (2 mL) SUBCUT .[id number] #2 mL 12/16/23 pen injector (Cosentyx Pen 300 mg/2 Pens () furosemide 20 mg tablet See Rx Instructions .Route 03/30/24 .COMPLEX #315 tabs nitroglycerin 0.4 mg sublingual 0.4 mg sublingual Q5M PRN chest 05/06/24 tablet pain #30 tabs metoprolol tartrate 50 mg tablet 50 mg PO BID #60 tabs 05/19/24 levofloxacin 750 mg tablet 750 mg PO DAILY #5 tabs 08/21/24 prednisone 10 mg tablet 10 mg PO DAILY #30 tabs 09/20/24 doxycycline monohydrate 100 mg 100 mg PO BID 10 days #20 caps 10/21/24 capsule ondansetron 4 mg disintegrating 4 mg PO Q8H PRN nausea and 10/21/24 tablet vomiting #10 tabs prednisone 20 mg tablet 60 mg (3 x 20 mg) PO DAILY #20 tabs 10/21/24 Allergies Allergy/AdvReac Type Severity Reaction Status Date / Time sertraline (From Zoloft) Allergy Unknown Unknown Verified 10/12/24 08:43 aspirin Allergy Unknown Verified 10/12/24 08:43 buspirone (From BuSpar) Allergy Unknown Verified 10/12/24 08:43 codeine Allergy Unknown Verified 10/12/24 08:43 diltiazem Allergy Unknown Verified 10/12/24 08:43 duloxetine Allergy Unknown Verified 10/12/24 08:43 gabapentin (From Neurontin) Allergy Unknown Verified 10/12/24 08:43 ibuprofen Allergy UNKNOWN Verified 10/12/24 08:43 iodine Allergy Unknown Verified 10/12/24 08:43 ketorolac (From Toradol) Allergy UNKNOWN Verified 10/12/24 08:43 lisinopril Allergy Unknown Verified 10/12/24 08:43 Penicillins Allergy Unknown Verified 10/12/24 08:43 pregabalin (Lyrica) Allergy Unknown Verified 10/12/24 08:43 Sulfa (Sulfonamide Allergy Unknown Verified 10/12/24 08:43 Antibiotics) tizanidine Allergy Unknown Verified 10/12/24 08:43 tramadol Allergy Unknown Verified 10/12/24 08:43 varenicline (From Chantix) Allergy UNKNOWN Verified 10/12/24 08:43 venlafaxine Allergy Unknown Verified 10/12/24 08:43 verapamil Allergy ADR-Fatigue Verified 10/12/24 08:43 d Review of Systems Narrative: Constitutional symptoms: Negative except as documented in HPI. Skin symptoms: Negative except as documented in HPI. Eye symptoms: Negative except as documented in HPI. ENMT symptoms: Negative except as documented in HPI. Respiratory symptoms: Negative except as documented in HPI. Cardiovascular symptoms: Negative except as documented in HPI. Gastrointestinal symptoms: Negative except as documented in HPI. Genitourinary symptoms: Negative except as documented in HPI. Musculoskeletal symptoms: Negative except as documented in HPI. Neurologic symptoms: Negative except as documented in HPI. Psychiatric symptoms: Negative except as documented in HPI. Endocrine symptoms: Negative except as documented in HPI. PFSH ED PFSH: Medical History Pneumonia Psoriatic arthritis Compression fracture Acute respiratory failure with hypoxia Community acquired pneumonia Facial swelling Ischemic stroke Respiratory failure Anxiety Bereavement counseling Immunization counseling High risk medication use Depression with anxiety Aortic regurgitation Hypothyroidism GERD without esophagitis Intermittent palpitations Hyperlipidemia Seronegative rheumatoid arthritis Essential (primary) hypertension Eczema Inflammatory arthritis Fibromyalgia Polyarticular psoriatic arthritis Surgical History H/O esophagogastroduodenoscopy (11/07/20) H/O breast biopsy Status post colonoscopy (11/07/20) H/O thyroidectomy Hx of cholecystectomy History of tonsillectomy Family History Mother Rheumatoid arthritis Father Rheumatoid arthritis Leukemia Denies family history of Lupus Social History Smoking and tobacco/nicotine status: current every day tobacco/nicotine user cigarettes Packs smoked per day: 0.25 Years cigarettes smoked: 25 [ Other cigarette details: 2ppd x 25 years, currently trying to quit] Second hand smoke exposure: Yes Alcohol intake: never Substance/Drug Use: never Marital status: Current occupational status: disabled Current gender identity: Female Physical Exam Narrative: EXAM NARRATIVE: General: Alert, no acute distress. Skin: Warm, dry. Head: Normocephalic, atraumatic. Neck: Supple, trachea midline. Eye: Extraocular movements are intact. Ears, nose, mouth and throat: Oral mucosa moist. Cardiovascular: Regular rate and rhythm, Normal peripheral perfusion. Respiratory: coarse, scattered wheeze, mild increased wob. tachypnea, breath sounds are equal, Symmetrical chest wall expansion. Gastrointestinal: Soft, Nontender, Non distended, Normal bowel sounds. Musculoskeletal: Normal ROM, no deformity. Neurological: Alert and oriented to person, place, time, and situation, No focal neurological deficit observed. Psychiatric: Cooperative, appropriate mood & affect. Course Vital Signs: Vital signs: Vital Signs Temperature 97.8 F 10/21/24 18:27 Pulse Rate 87 10/21/24 20:31 Respiratory Rate 17 10/21/24 20:38 Blood Pressure 156/76 10/21/24 20:31 Pulse Oximetry 96 10/21/24 20:38 Oxygen Delivery Me thod Nasal Cannula 10/21/24 20:31 Oxygen Flow Rate 3 10/21/24 20:31 MDM - SOB/Dyspnea Medical Decision Making Differential diagnosis for patient with shortness of breath includes but is not limited to and based on the above HPI, review of systems and physical exam: Pneumonia. Bronchitis. Asthma or COPD with acute exacerbation. Acute coronary syndrome / HI. Pulmonary embolism. Anxiety. Congestive heart failure. Viral infections including influenza and Covid-19. Atrial fibrillation. Anxiety. Pleural effusion. Pneumothorax. Orders placed to evaluate differential diagnosis based on the above differential, HPI and physical exam EKG: Time 1821. Rate 92. Normal sinus rhythm, No ST-T changes, no ectopy, normal RI & QRS intervals, This was reviewed and interpreted by myself the ER physician at 1824. Chest x-ray: Right lower lobe infiltrate versus effusion. This was reviewed and interpreted by myself the emergency room physician. I also reviewed the radiology report. Lab Review: Laboratory results were reviewed and interpreted by myself the emergency room physician. Mild leukocytosis. No anemia. No renal failure. Patient is flu COVID and RSV negative. Lactate is negative. AB.4 2/58/115 on 3 L nasal cannula. O2 sat is 97%. No CO2 retention and no hypoxemia on her home oxygen. I reviewed the patient's medical record. Reexamination: Patient has remained in the mid to upper 90s on her home O2. No increased work of breathing. She request admission multiple times. I discussed with her that she does not meet requirements for admission. She says she just does not feel well and she would like to come in. Again her vitals are normal on her home oxygen. No increased work of breathing. No indication for admission. Assessment and plan: Pneumonia COPD with acute exacerbation Chronic hypoxemic respiratory failure Tobacco dependence ?IV Solu-Medrol, IV doxycycline and 2 updrafts in the emergency room. - Discharged home - Discussed plan with patient. Answered any questions. - Evaluation and treatment of this problem were appropriate in the emergency setting. Lab Data 10/21/24 19:25 10/21/24 19:25 Labs/Radiology: Radiology Impressions Chest X-Ray 10/21/24 18:40 IMPRESSION: Nonspecific findings of the right lung base which can be seen in infection with parapneumonic effusion. Correlate clinically. Laboratory Results WBC 11.71 10^3/uL (3.29-11.43) H 10/21/24: RBC 4.68 10^6/uL (3.85-5.65) 10/21/24: Hgb 14.20 g/dL (11.27-16.99) 10/21/24: Hct 44.7 % (36-47) 10/21/24: MCV 95.5 fl (85-98) 10/21/24: MCH 30.3 pg (27-33) 10/21/24: MCHC 31.8 g/dL (30-55) 10/21/24: RDW 12.1 % (12.1-15.1) 10/21/24: Plt Count 290 10^3/cmm (157-399) 10/21/24: MPV 9.4 fL (7.4-10.4) 10/21/24: Neut % (Auto) 69.3 % 10/21/24: Lymph % (Auto) 19.8 % 10/21/24: [place] % (Auto) 10.0 % 10/21/24: Eos % (Auto) 0.2 % 10/21/24: Baso % (Auto) 0.3 % 10/21/24: Neut # (Auto) 8.12 10^3/uL (1.8-7.7) H 02/13/25 19:25 Lymph # (Auto) 2.3 10^3/uL (0.8-4.8) 10/21/24 19:25 [place] # (Auto) 1.2 10^3/uL (0.2-0.9) H 10/21/24 19:25 Eos # (Auto) 0.0 10^3/uL (0.0-0.8) 10/21/24 19:25 Baso # (Auto) 0.0 10^3/uL (0.0-0.1) 10/21/24 19:25 Nucleated RBC % (auto) 0 % 10/21/24: Nucleated RBCs # 0.0 /100WBC 10/21/24 19:25 Specimen Type Arterial 10/21/24 19:15 Sample Site Brachial, right 10/21/24 19:15 ABG pH 7.42 (7.35-7.45) 10/21/24 19:15 ABG pCO2 57.9 mmHg (35-45) H 10/21/24 19:15 ABG pO2 115.0 mmHg (80.0-100.0) H 10/21/24 19:15 ABG HCO3 37.1 mmol/L (22-26) H 10/21/24 19:15 ABG O2 Saturation 99.0 10/21/24 19:15 ABG Base Excess 10.1 mmol/L (-2.0-2.0) H 10/21/24 19:15 Rudy Test N/a 10/21/24 19:15 A-a O2 Gradient 0.0 mmHg (5-10) L 10/21/24 19:15 Hematocrit 45.3 % (37-47) 10/21/24 19:15 Hgb O2 Saturation 97.1 % (95-100) 10/21/24 19:15 Carboxyhemoglobin 1.0 %THgb (0.4-20.1) 10/21/24 19:15 Methemoglobin 0.9 % (0.4-1.5) 10/21/24 19:15 Total Hemoglobin 14.8 g/dL (12-16) 10/21/24 19:15 Sodium 141.0 mmol/L (131-143) 10/21/24 19:15 Potassium 3.0 mmol/L (3.5-5.0) L 10/21/24 19:15 Glucose 115.0 mg/dL (70-115) 10/21/24 19:15 Ionized Calcium 1.2 mmol/L (1.1-1.4) 10/21/24 19:15 O2 Delivery Device Nc 10/21/24 19:15 O2 Liters/Min 3.0 % 10/21/24 19:15 Personnel Generalist Manager ID [email or web address] 10/21/24 19:15 Sodium 140 mmol/L (136-145) 10/21/24 19:25 Potassium 3.2 mmol/L (3.5-5.1) L 10/21/24 19:25 Chloride 95 mmol/L (98-107) L 10/21/24 19:25 Carbon Dioxide 36 mmol/L (22-29) H 10/21/24 19:25 Anion Gap 12.2 (5-19) 10/21/24:25 BUN 6 mg/dL (8-23) L 10/21/24:25 Creatinine 0.5 mg/dL (0.5-0.9) 10/21/24 19:25 GFR Calculation 125.9 mL/min (90-130) 10/21/24 19:25 Glucose 115 mg/dL (65-115) 10/21/24:25 Calculated Osmolality 289 mOsm/kg (285-295) 10/21/24:25 Lactic Acid 1.1 mmol/L (0.5-2.2) 10/21/24: Calcium 9.6 mg/dL (8.5-10.5) 10/21/24:25 Total Bilirubin 0.4 mg/dL (0.15-1.2) 10/21/24 19:25 AST 14 U/L (0-32) 10/21/24 19:25 ALT 13 U/L (0-33) 10/21/24 19:25 Alkaline Phosphatase 80 U/L (35-105) 10/21/24 19:25 Troponin T Baseline 11 ng/L (0-10) H 10/21/24 19:25 Troponin T 120 Minute 9.92 ng/L (0-10) 10/21/24 21:39 Delta Troponin T -1.08 ABS# (0-10) L 10/21/24 21:39 C-Reactive Protein 3.0 mg/L (0.0-4.9) 10/21/24 19:25 NT-Pro-B Natriuret Pep 111 pg/mL (0-125) 10/21/24 19:25 Total Protein 6.2 g/dL (6.6-8.7) L 10/21/24 19:25 Albumin 4.1 g/dL (3.5-5.2) 10/21/24 19: Globulin 2.1 g/dL (1.3-4.6) 10/21/24 19:25 Procalcitonin 0.04 ng/mL (0-0.5) 10/21/24 19:25 Coronavirus (PCR) Negative (Negative) 10/21/24 18:56 Influenza A (PCR) Negative (Negative) 10/21/24 18:56 Influenza Type B (PCR) Negative (Negative) 10/21/24 18:56 RSV (PCR) Negative (Negative) 10/21/24 18:56 All radiology interpretation(s) finalized by discharge Discharge Plan Discharge Patient Disposition: Home Clinical Impression: Acute exacerbation of chronic obstructive airways disease, Community acquired pneumonia, Chronic hypoxemic respiratory failure, Tobacco dependence Condition: Stable Prescriptions: New prednisone 20 mg tablet 60 mg PO DAILY Qty: 20 0RF Rx Instructions: 3 tabs (60 mg) x 3 days. 2 tabs (40 mg) x 3 days. 1 tab (20 mg) x 3 days. 1/2 tab (10 mg) x 4 days doxycycline monohydrate 100 mg capsule 100 mg PO BID 10 Days Qty: 20 0RF ondansetron 4 mg tablet,disintegrating 4 mg PO Q8H PRN (Reason: nausea and vomiting) Qty: 10 0RF No Action cyclobenzaprine 10 mg tablet 10 mg PO BID topiramate 25 mg tablet 25 mg PO BID fluoxetine [Prozac] 20 mg capsule 20 mg PO DAILY (DME) Nebulizer machine See Rx Instructions .Route .MEDSUPPLY Qty: 1 0RF Rx Instructions: As directed levothyroxine 100 mcg tablet 100 mcg PO DAILY Qty: 90 0RF clonidine HCl 0.1 mg tablet 0.1 mg PO DAILY PRN (Reason: hypertensive emergency) Qty: 90 1RF cholecalciferol (vitamin D3) 50 mcg (2,000 unit) tablet 2,000 unit PO DAILY Qty: 30 0RF Rx Instructions: AT 0800 Cosentyx Pen (2 Pens) 150 mg/mL pen injector 300 mg SUBCUT .[id number] Qty: 2 4RF furosemide 20 mg tablet See Rx Instructions .ROUTE .COMPLEX Qty: 315 0RF Dose Instruction: TAKE ONE TABLET BY MOUTH EVERY DAY; alternating with TWO EVERY DAY Rx Instructions: TAKE ONE TABLET BY MOUTH EVERY DAY; alternating with TWO EVERY DAY nitroglycerin 0.4 mg tablet, sublingual 0.4 mg sublingual Q5M PRN (Reason: chest pain) Qty: 30 6RF Rx Instructions: do not exceed 3 doses per episode prednisone 10 mg tablet 10 mg PO DAILY Qty: 30 1RF atorvastatin 40 mg tablet 40 mg PO QPM isosorbide mononitrate 30 mg tablet extended release 24 hr 30 mg PO BID levofloxacin 750 mg Tablet 750 mg PO DAILY Qty: 5 0RF clopidogrel 75 mg tablet 75 mg PO DAILY albuterol sulfate 90 mcg/actuation HFA aerosol inhaler 2 inh inhalation Q8H PRN (Reason: shortness of breath or wheezing) Qty: 8.5 3RF pantoprazole [Protonix] 40 mg tablet,delayed release (DR/EC) 40 mg PO DAILY Qty: 30 5RF oxycodone-acetaminophen 10-325 mg tablet 1 tab PO Q8H PRN (Reason: Pain) metoprolol tartrate 50 mg tablet 50 mg PO BID Qty: 60 5RF Discharge Orders: Discharge ED (Routine); Ordered 10/21/24 Ordered By: Maria Alejandra Couch Referrals: Afia Barrett NP [Primary Care Provider] - Discharge Diet: Usual diet Discharge Activity: Increase activity as tolerated Patient Instructions: COPD (Chronic Obstructive Pulmonary Disease) (ED), Bacterial Pneumonia (ED), Opioid Safety, Pain Management Activity Restrictions/Additional Instructions: Thank you for choosing [facility] for your healthcare needs today. Please realize this is an emergency room and that we are providing you with a medical screening exam and this may not be complete and all inclusive of all the testing and or work up that you may need to determine your ailment or severity of your illness. You have been screened and evaluated and felt safe for discharge. Health conditions do change or evolve sometimes and as such it is important that you follow up with your Primary Doctor to be re checked, 3-5 days is a general good time frame for follow up. 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
[2024-10-21] MEDS: methylPREDNISolone sod succ 125 mg/2 mL INJ IVP (18:59)
[2024-10-21] MEDS: albuterol 2.5 mg/3 mL Neb INHALATION (19:11)
[2024-10-21] MEDS: ipratropium-albuterol 3 mL Neb INHALATION (19:11)
[2024-10-21 19:25] LABS: ABG PCO2 57.9 mmHg (35-45); ABG PH Result 7.42 (7.35-7.45); Arterial Blood Gas Hematocrit 45.3 % (37-47); Base Excess ABG 10.1 mmol/L (-2.0-2.0); Blood Gas Sample Site Brachial, right; Blood Gas Sample Type Arterial; HCO3 ABG 37.1 mmol/L (22-26); HGB O2 Sat 97.1 % (95-100); Ionized Calcium Level - ABG 1.2 mmol/L (1.1-1.4); Methemoglobin 0.9 % (0.4-1.5); Oxygen Device NC; Total Hemoglobin 14.8 g/dL (12-16)
[2024-10-21 19:39] LABS: Basophils % 0.3 %; Eosinophils % 0.2 %; Hematocrit 44.7 % (36-47); Lymphocytes # 2.3 10^3/uL (0.8-4.8); Lymphocytes % 19.8 %; Mean Corpuscular HGB Conc 31.8 g/dL (30-55); Mean Corpuscular Hemoglobin 30.3 pg (27-33); Mean Corpuscular Volume 95.5 fl (85-98); Mean Platelet Volume 9.4 fL (7.4-10.4); Monocytes # 1.2 10^3/uL (0.2-0.9); Neutrophils # 8.12 10^3/uL (1.8-7.7); Neutrophils % 69.3 %; Nucleated Red Blood Cells % 0 %; Platelet Count 290 10^3/cmm (157-399); Red Blood Count 4.68 10^6/uL (3.85-5.65); Red Cell Distribution Width 12.1 % (12.1-15.1); White Blood Count 11.71 10^3/uL (3.29-11.43)
[2024-10-21 19:54] LABS: Lactic Sepsis W/Reflex 1.1 mmol/L (0.5-2.2)
[2024-10-21 19:57] LABS: Troponin(5th) Baseline 11 ng/L (0-10)
[2024-10-21 19:59] LABS: Influenza A NEGATIVE (Negative); Influenza B NEGATIVE (Negative); Respiratory Syncytial Virus Ce NEGATIVE (Negative); SARS-CoV-2 PCR NEGATIVE (Negative)
[2024-10-21 20:04] LABS: NT Pro B Type Natriuretic Pept 111 pg/mL (0-125); Procalcitonin 0.04 ng/mL (0-0.5)
[2024-10-21 20:16] LABS: Alanine Aminotransferase 13 U/L (0-33); Albumin Level 4.1 g/dL (3.5-5.2); Alkaline Phosphatase 80 U/L (35-105); Anion Gap 12.2 (5-19); Aspartate Amino Transferase 14 U/L (0-32); Blood Urea Nitrogen 6 mg/dL (8-23); Calcium 9.6 mg/dL (8.5-10.5); Carbon Dioxide 36 mmol/L (22-29); Chloride 95 mmol/L (98-107); Creatinine Clr Calc Pharmacy 109.0078; Globulin 2.1 g/dL (1.3-4.6); Glomerular Filtration Rate 125.9 mL/min (90-130); Glucose 115 mg/dL (65-115); Osmolality Calculated 289 mOsm/kg (285-295); Potassium 3.2 mmol/L (3.5-5.1); Sodium 140 mmol/L (136-145); Total Bilirubin 0.4 mg/dL (0.15-1.2); Total Protein 6.2 g/dL (6.6-8.7)
[2024-10-21] MEDS: ondansetron 2 mg/ML SDV 2 mL 4 MG IVP (20:37)
[2024-10-21] MEDS: morphine 4 mg/mL SDV 1 mL IVP (20:38)
[2024-10-21] MEDS: doxycycline 100 MG in sodium chloride 0.9% (plus) 100 ML IV (20:40)
--- NOTE | 2024-10-21 20:42 | ECG_ITS ---
[employer] Test Date: 2024-10-21 Pat Name: Angie Naranjo Department: Room: Gender: Female Director Of Cath Lab: : 1965 Requested By: Maria Alejandra Moyer Order Number: [id number] Asa MD: COLLIN BUCIO Measurements Intervals [place] Rate: 86 P: 65 MA: 166 QRS: -52 QRSD: 100 T: 30 QT: 400 QTc: 480 Interpretive Statements SINUS RHYTHM LEFT ANTERIOR FASCICULAR BLOCK [QRS AXIS <= -45, QR IN I, RS IN II] MODERATE VOLTAGE CRITERIA FOR LVH, CONSIDER NORMAL VARIANT [MEETS CRITERIA IN ONE OF: R(aVL), S(V1), R(V5), R(V5/V6)+S(V1)] POSSIBLE ANTERIOR MYOCARDIAL INFARCTION , PROBABLY OLD [30 ms Q WAVE IN V3/V4, OR R < 0.2 mV IN V4] Compared to ECG 10/21/2024 18:21:00 Left anterior fascicular block now present Myocardial infarct finding still present Electronically Signed On 10-23-2024 19:33:56 HUMANITIES PROFESSOR by COLLIN BUCIO [email or web address]
[2024-10-21 22:04] LABS: Troponin 5 2HR 9.92 ng/L (0-10)
[2024-10-21 22:12] LABS: Troponin 5 2HR Delta -1.08 ABS# (0-10)
== END 2024-10-21 22:47 | disposition home or self-care (01) ==
PROVIDERS: Emergency Provider Emergency Medicine; PCP Nurse Practitioner Family
DX: J44.1 Chronic obstructive pulmonary disease with (acute) exacerbation (principal); J18.9 Pneumonia, unspecified organism; J96.11 Chronic respiratory failure with hypoxia; Z11.52 Encounter for screening for COVID-19; F17.210 Nicotine dependence, cigarettes, uncomplicated; I10 Essential (primary) hypertension; E78.5 Hyperlipidemia, unspecified
CPT/HCPCS: 36415; 36600; 71045; 80051; 80053; 82330; 82805; 83605; 83880; 84145; 84484; 85025; 86140; 87040; 87150; 87205; 87637; 93005; 94640; 96365; 96366; 96375; 99285; J2270; J2405; J2919; J3490; J7613

== ENCOUNTER 2024-12-26 11:11 | Inpatient (IN) | payer MEDICARE, MEDICAID, SELFPAY ==
[2024-12-26] VITALS (41 sets, daily range): BP systolic 101–152; BP diastolic 66–104; PULSE 77–95; RESP 12–22; TEMP 36.6–37.2; O2SAT 76–98; BMI 29.2; BMI 29.4
--- NOTE | 2024-12-26 11:12 | ECG_ITS ---
[employer] Test Date: 2024-12-26 Pat Name: Angie Naranjo Department: Room: [facility] Gender: Female Analytics Director: : 1965 Requested By: Quinton Moyer Order Number: [id number] Asa MD: Nery Mann M.D. Measurements Intervals [place] Rate: 85 P: 73 [place]: 164 QRS: -65 QRSD: 96 T: 56 QT: 388 QTc: 463 Interpretive Statements SINUS RHYTHM POSSIBLE RIGHT ATRIAL ENLARGEMENT [0.25mV P-WAVE] LEFT ATRIAL ENLARGEMENT [-0.15mV P-WAVE IN V1/V2] LEFT ANTERIOR FASCICULAR BLOCK [QRS AXIS <= -45, QR IN I, RS IN II] POSSIBLE ANTEROLATERAL MYOCARDIAL INFARCTION , OF INDETERMINATE AGE [30 ms Q WAVE IN I/aVL/V3-V6] Compared to ECG 10/21/2024 21:37:29 Atrial abnormality now present Myocardial infarct finding still present Electronically Signed On 12-27-2024 18:52:45 CDT by Nery Mann M.D. [email or web address]
--- NOTE | 2024-12-26 11:12 | XRR_ITS ---
PROCEDURE INFORMATION: Exam: XR Chest Exam date and time: 12/26/2024 11:43 AM Age: 59 years old Clinical indication: Pain; Chest pressure; Additional info: Chest pain TECHNIQUE: Imaging protocol: Radiologic exam of the chest. Views: 1 view. COMPARISON: CR XR chest 1V portable [id number] 10/21/2024 7:00 PM FINDINGS: Lungs: Unremarkable. No consolidation. Pleural spaces: Unremarkable. No pleural effusion. No pneumothorax. Heart/Mediastinum: Unremarkable. No cardiomegaly. Bones/joints: Vertebroplasty changes along the thoracolumbar region. XR/XR chest 1V portable [id number] IMPRESSION: No focal lung consolidations.
--- NOTE | 2024-12-26 11:13 | W.ED.CHESTPA ---
HPI - Chest Pain General: Chief Complaint: Shortness of Breath/Dyspnea Stated Complaint: chest pain; sob Time Seen by Provider: 12/26/24 11:12 History of Present Illness: 59-year-old female presents emergency room complaint of chest pain off and on for the last week bilaterally extends into the arms and lower back and increase when she takes a deep breath or moves. She was prescribed steroids and breathing treatments. That has not really helped. Typically on home oxygen at 4 L/min was turned up to 6 when she first arrived here and route by EMS they reported a baseline O2 sat of 86% with hypercapnia on her end-tidal monitor. She was given 250 mg of Solu-Medrol 200 mcg of fentanyl and 4 of Zofran as well as albuterol treatments. Patient still complaining of shortness of breath. Associated symptoms: Reports dyspnea; Deny abdominal pain or fever(s) Related Data Home Medications ?Medication ?Instructions ?Recorded ?Confirmed fluoxetine 20 mg capsule (Prozac) 20 mg PO DAILY 01/04/22 12/26/24 clopidogrel 75 mg tablet 75 mg PO DAILY 02/03/22 12/26/24 atorvastatin 40 mg tablet 40 mg PO QPM 08/23/22 12/26/24 cyclobenzaprine 10 mg tablet 10 mg PO BID 10/10/22 12/26/24 topiramate 25 mg tablet 25 mg PO BID 10/10/22 12/26/24 oxycodone-acetaminophen 10 mg-325 1 tab PO Q8H PRN Pain 11/11/23 12/26/24 mg tablet carvedilol 25 mg tablet 25 mg PO BID 12/26/24 12/26/24 folic acid 1 mg tablet 1 mg PO DAILY 12/26/24 12/26/24 ipratropium 0.5 mg-albuterol 3 mg 3 ml inhalation QID PRN Shortness 12/26/24 12/26/24 (2.5 mg base)/3 mL nebulization Of Breath soln isosorbide mononitrate 30 mg 30 mg PO BID 12/26/24 12/26/24 tablet,extended release 24 hr potassium chloride 10 mEq 10 meq PO BID 12/26/24 12/26/24 tablet,extended release Previous Rx's ?Medication ?Instructions ?Recorded Nebulizer machine #1 ea 12/06/20 levothyroxine 100 mcg tablet 100 mcg PO DAILY #90 tabs 12/15/20 clonidine HCl 0.1 mg tablet 0.1 mg PO DAILY PRN hypertensive 03/06/21 emergency #90 tabs cholecalciferol (vitamin D3) 50 2,000 unit PO DAILY #30 tabs 01/29/22 mcg (2,000 unit) tablet albuterol sulfate 90 mcg/actuation 2 inh inhalation Q8H PRN shortness 02/06/22 aerosol inhaler of breath or wheezing #8.5 grams pantoprazole 40 mg tablet,delayed 40 mg PO DAILY #30 tabs 09/19/23 release (Protonix) secukinumab 150 mg/mL subcutaneous 300 mg (2 mL) SUBCUT .[id number] #2 mL 12/16/23 pen injector (Cosentyx Pen 300 mg/2 Pens () furosemide 20 mg tablet See Rx Instructions .Route 03/30/24 .COMPLEX #315 tabs nitroglycerin 0.4 mg sublingual 0.4 mg sublingual Q5M PRN chest 05/06/24 tablet pain #30 tabs metoprolol tartrate 50 mg tablet 50 mg PO BID #60 tabs 05/19/24 ondansetron 4 mg disintegrating 4 mg PO Q8H PRN nausea and 10/21/24 tablet vomiting #10 tabs prednisone 10 mg tablet 10 mg PO DAILY #30 tabs 11/08/24 Allergies Allergy/AdvReac Type Severity Reaction Status Date / Time sertraline (From Zoloft) Allergy Unknown Unknown Verified 12/26/24 11:28 aspirin Allergy Unknown Verified 12/26/24 11:28 buspirone (From BuSpar) Allergy Unknown Verified 12/26/24 11:28 codeine Allergy Unknown Verified 12/26/24 11:28 diltiazem Allergy Unknown Verified 12/26/24 11:28 duloxetine Allergy Unknown Verified 12/26/24 11:28 gabapentin (From Neurontin) Allergy Unknown Verified 12/26/24 11:28 ibuprofen Allergy UNKNOWN Verified 12/26/24 11:28 iodine Allergy Unknown Verified 12/26/24 11:28 ketorolac (From Toradol) Allergy UNKNOWN Verified 12/26/24 11:28 lisinopril Allergy Unknown Verified 12/26/24 11:28 Penicillins Allergy Unknown Verified 12/26/24 11:28 pregabalin (Lyrica) Allergy Unknown Verified 12/26/24 11:28 Sulfa (Sulfonamide Allergy Unknown Verified 12/26/24 11:28 Antibiotics) tizanidine Allergy Unknown Verified 12/26/24 11:28 tramadol Allergy Unknown Verified 12/26/24 11:28 varenicline (From Chantix) Allergy UNKNOWN Verified 12/26/24 11:28 venlafaxine Allergy Unknown Verified 12/26/24 11:28 verapamil Allergy ADR-Fatigue Verified 12/26/24 11:28 d Review of Systems Const: Denies: fever(s) or chills Card: Denies: chest pain Resp: Reports: dyspnea, non-productive cough, wheezing and chest congestion GI: Denies: abdominal pain : Denies: dysuria, urinary frequency or urinary urgency Musc: Denies: neck pain or back pain Skin/Breast: Denies: rash PFSH ED PFSH: Medical History Pneumonia Psoriatic arthritis Compression fracture Acute respiratory failure with hypoxia Community acquired pneumonia Facial swelling Ischemic stroke Respiratory failure Anxiety Bereavement counseling Immunization counseling High risk medication use Depression with anxiety Aortic regurgitation Hypothyroidism GERD without esophagitis Intermittent palpitations Hyperlipidemia Seronegative rheumatoid arthritis Essential (primary) hypertension Eczema Inflammatory arthritis Fibromyalgia Polyarticular psoriatic arthritis Surgical History H/O esophagogastroduodenoscopy (11/07/20) H/O breast biopsy Status post colonoscopy (11/07/20) H/O thyroidectomy Hx of cholecystectomy History of tonsillectomy Family History Mother Rheumatoid arthritis Father Rheumatoid arthritis Leukemia Denies family history of Lupus Social History Smoking and tobacco/nicotine status: current every day tobacco/nicotine user cigarettes Packs smoked per day: 0.25 Years cigarettes smoked: 25 [ Other cigarette details: 2ppd x 25 years, currently trying to quit] Second hand smoke exposure: Yes Alcohol intake: never Substance/Drug Use: never Marital status: Current occupational status: disabled Current gender identity: Female Physical Exam Const: COMMON NORMALS: no acute distress GENERAL APPEARANCE: cooperative and comfortable ORIENTATION/CONSCIOUSNESS: Yes awake, Yes oriented to person, Yes oriented to place and Yes oriented to time HENMT: COMMON NORMALS: normocephalic, atraumatic and hearing grossly normal bilaterally HEAD & SCALP: normocephalic and atraumatic Resp: EFFORT & INSPECTION: Yes tachypneic and Yes labored AUSCULTATION: wheezes and diminished lung sounds Cardio: COMMON NORMALS: regular rate, regular rhythm and No murmurs present (Cardio) RATE: regular rate RHYTHM: regular rhythm GI: COMMON NORMALS: Soft to palpation and No hepatosplenomegaly present AUSCULTATION: Yes normoactive bowel sounds PALPATION: Yes Soft to palpation, No Tenderness to palpation present (GI), No Guarding due to palpation present (GI) and Yes No hepatosplenomegaly present Extremity: COMMON NORMALS: normal to inspection, capillary refill normal, no clubbing, cyanosis or edema, no calf tenderness and no pedal edema Neuro: SENSORIUM/ORIENTATION: Yes oriented to person, Yes oriented to place and Yes oriented to time Skin: COMMON NORMALS: no rashes or lesions noted GENERAL SKIN EXAM: no rashes or lesions noted Course Vital Signs: Vital signs: Vital Signs Temperature 98 F 12/26/24 14:15 Pulse Rate 80 12/26/24 16:18 Respiratory Rate 22 H 12/26/24 16:17 Blood Pressure 124/92 12/26/24 14:15 Pulse Oximetry 92 12/26/24 16:17 Oxygen Delivery Me thod BiPAP 12/26/24 16:17 Oxygen Flow Rate 3 12/26/24 12:08 Fraction of Inspir ed Oxygen 30 12/26/24 16:17 MDM - Chest Pain Medical Decision Making Admit for acute on chronic hypercapnic respiratory failure as well as hypokalemia hypomagnesemia. Discussed with hospitalist orders written Medical Records I reviewed the patient's medical records. Lab Data I reviewed the patient's lab results. 12/26/24 11:20 12/26/24 11:20 Radiology Impressions Chest X-Ray 12/26/24 11:12 IMPRESSION: No focal lung consolidations. Chest CTA 12/26/24 11:52 IMPRESSION: 1. No evidence of pulmonary embolism. 2. Coronary artery calcifications 3. Ectatic dilatation of the ascending thoracic aorta measuring 42 mm at the level of the right main pulmonary artery. 4. New diffuse sclerotic lesion in the T3 vertebral body. Consider further evaluation with MRI of the thoracic spine with and without contrast. 5. Multilevel thoracic vertebral endplate deformities with compression fractures at T12 and T7, and vertebroplasty at L1. Findings consistent with chronic compression injuries and underlying osteopenia or osteoporosis. 6. Dilated pulmonary artery measuring 33 millimeters which can be seen with pulmonary arterial hypertension. Laboratory Results WBC 11.65 10^3/uL (3.29-11.43) H 12/26/24 11:20 RBC 4.84 10^6/uL (3.85-5.65) 12/26/24 11:20 Hgb 14.60 g/dL (11.27-16.99) 12/26/24 11:20 Hct 46.8 % (36-47) 12/26/24 11:20 MCV 96.7 fl (85-98) 12/26/24 11:20 MCH 30.2 pg (27-33) 12/26/24 11:20 MCHC 31.2 g/dL (30-55) 12/26/24 11:20 RDW 13.0 % (12.1-15.1) 12/26/24 11:20 Plt Count 262 10^3/cmm (157-399) 12/26/24 11:20 MPV 9.7 fL (7.4-10.4) 12/26/24 11:20 Neut % (Auto) 70.9 % 12/26/24 11:20 Lymph % (Auto) 16.2 % 12/26/24 11:20 [place] % (Auto) 11.3 % 12/26/24 11:20 Eos % (Auto) 1.0 % 12/26/24 11:20 Baso % (Auto) 0.2 % 12/26/24 11:20 Neut # (Auto) 8.25 10^3/uL (1.8-7.7) H 12/26/24 11:20 Lymph # (Auto) 1.9 10^3/uL (0.8-4.8) 12/26/24 11:20 [place] # (Auto) 1.3 10^3/uL (0.2-0.9) H 12/26/24 11:20 Eos # (Auto) 0.1 10^3/uL (0.0-0.8) 12/26/24 11:20 Baso # (Auto) 0.0 10^3/uL (0.0-0.1) 12/26/24 11:20 Nucleated RBC % (auto) 0 % 12/26/24 11:20 Nucleated RBCs # 0.0 /100WBC 12/26/24 11:20 Specimen Type Arterial 12/26/24 12:09 Sample Site Brachial, right 12/26/24 12:09 ABG pH 7.41 (7.35-7.45) 12/26/24 12:09 ABG pCO2 86.6 mmHg (35-45) H* 12/26/24 12:09 ABG pO2 95.8 mmHg (80.0-100.0) 12/26/24 12:09 ABG PO2/FiO2 Ratio 299 12/26/24 12:09 ABG HCO3 54.6 mmol/L (22-26) H 12/26/24 12:09 ABG O2 Saturation 98.1 12/26/24 12:09 ABG Base Excess 23.6 mmol/L (-2.0-2.0) H 12/26/24 12:09 Rudy Test N/a 12/26/24 12:09 A-a O2 Gradient 3.6 mmHg (5-10) L 12/26/24 12:09 Hematocrit 46.7 % (37-47) 12/26/24 12:09 Hgb O2 Saturation 95.1 % (95-100) 12/26/24 12:09 Carboxyhemoglobin 2.1 %THgb (0.4-20.1) 12/26/24 12:09 Methemoglobin 0.9 % (0.4-1.5) 12/26/24 12:09 Total Hemoglobin 15.2 g/dL (12-16) 12/26/24 12:09 Sodium 133.0 mmol/L (131-143) 12/26/24 12:09 Potassium 2.8 mmol/L (3.5-5.0) L 12/26/24 12:09 Glucose 190.0 mg/dL (70-115) H 12/26/24 12:09 Ionized Calcium 1.2 mmol/L (1.1-1.4) 12/26/24 12:09 O2 Delivery Device Nc 12/26/24 12:09 O2 Liters/Min 3.0 % 12/26/24 12:09 FiO2 32.0 % 12/26/24 12:09 [employer] ID Amh 12/26/24 12:09 Sodium 136 mmol/L (136-145) 12/26/24 11:20 Potassium 3.0 mmol/L (3.5-5.1) L 12/26/24 11:20 Chloride 80 mmol/L (98-107) L 12/26/24 11:20 Carbon Dioxide 49 mmol/L (22-29) H* 12/26/24 11:20 Anion Gap 10.0 (5-19) 12/26/24 11:20 BUN 6 mg/dL (8-23) L 12/26/24 11:20 Creatinine 0.6 mg/dL (0.5-0.9) 12/26/24 11:20 GFR Calculation 101.6 mL/min (90-130) 12/26/24 11:20 Glucose 159 mg/dL (65-115) H 12/26/24 11:20 Calculated Osmolality 283 mOsm/kg (285-295) L 12/26/24 11:20 Lactic Acid 1.8 mmol/L (0.5-2.2) 12/26/24 11:20 Calcium 9.4 mg/dL (8.5-10.5) 12/26/24 11:20 Magnesium 1.6 mg/dL (1.7-2.3) L 12/26/24 11:20 Total Bilirubin 1.0 mg/dL (0.15-1.2) 12/26/24 11:20 AST 14 U/L (0-32) 12/26/24 11:20 ALT 11 U/L (0-33) 12/26/24 11:20 Alkaline Phosphatase 97 U/L (35-105) 12/26/24 11:20 Troponin T Baseline 20 ng/L (0-10) H 12/26/24 11:20 NT-Pro-B Natriuret Pep 116 pg/mL (0-125) 12/26/24 11:20 Total Protein 6.6 g/dL (6.6-8.7) 12/26/24 11:20 Albumin 4.3 g/dL (3.5-5.2) 12/26/24 11:20 Globulin 2.3 g/dL (1.3-4.6) 12/26/24 11:20 All radiology interpretation(s) finalized by discharge Discharge Plan Discharge Patient Disposition: Admitted As Inpatient Admit Provider: Yamileth Ortiz Clinical Impression: Acute and chronic respiratory failure with hypercapnia, Acute hypokalemia, Acute exacerbation of chronic obstructive airways disease, Hypomagnesemia Condition: Stable Coding Level of Care Code ED Director [employer] for Dom Casas
[2024-12-26 11:32] LABS: Basophils % 0.2 %; Eosinophils # 0.1 10^3/uL (0.0-0.8); Hematocrit 46.8 % (36-47); Lymphocytes # 1.9 10^3/uL (0.8-4.8); Lymphocytes % 16.2 %; Mean Corpuscular HGB Conc 31.2 g/dL (30-55); Mean Corpuscular Hemoglobin 30.2 pg (27-33); Mean Corpuscular Volume 96.7 fl (85-98); Mean Platelet Volume 9.7 fL (7.4-10.4); Monocytes # 1.3 10^3/uL (0.2-0.9); Monocytes % 11.3 %; Neutrophils # 8.25 10^3/uL (1.8-7.7); Neutrophils % 70.9 %; Nucleated Red Blood Cells % 0 %; Platelet Count 262 10^3/cmm (157-399); Red Blood Count 4.84 10^6/uL (3.85-5.65); White Blood Count 11.65 10^3/uL (3.29-11.43)
[2024-12-26 11:47] LABS: Alanine Aminotransferase 11 U/L (0-33); Albumin Level 4.3 g/dL (3.5-5.2); Alkaline Phosphatase 97 U/L (35-105); Aspartate Amino Transferase 14 U/L (0-32); Blood Urea Nitrogen 6 mg/dL (8-23); Calcium 9.4 mg/dL (8.5-10.5); Chloride 80 mmol/L (98-107); Creatinine Clr Calc Pharmacy 91.8494; Globulin 2.3 g/dL (1.3-4.6); Glomerular Filtration Rate 101.6 mL/min (90-130); Glucose 159 mg/dL (65-115); Osmolality Calculated 283 mOsm/kg (285-295); Sodium 136 mmol/L (136-145); Total Protein 6.6 g/dL (6.6-8.7)
[2024-12-26 11:52] LABS: Troponin(5th) Baseline 20 ng/L (0-10)
--- NOTE | 2024-12-26 11:52 | CTR_ITS ---
PROCEDURE INFORMATION: Exam: CTA Chest With Contrast Exam date and time: 12/26/2024 12:27 PM Age: 59 years old Clinical indication: Pain; Dyspnea; Chest pressure; Additional info: Dyspnea chest pain TECHNIQUE: Imaging protocol: Computed tomographic angiography of the chest with contrast. Exam focused on the arteries. 3D rendering (Not supervised by radiologist): MIP and/or 3D reconstructed images were created by the technologist. Radiation optimization: All CT scans at this facility use at least one of these dose optimization techniques: automated exposure control; mA and/or kV adjustment per patient size (includes targeted exams where dose is matched to clinical indication); or iterative reconstruction. Contrast material: OMNIPAQUE 350; Contrast volume: 55 ml; Contrast route: INTRAVENOUS (IV); COMPARISON: CT angio chest PE protcl [id number] 11/11/2023 2:30 PM RADIATION DOSE METRICS: Total DLP (mGy-cm): 412.72 FINDINGS: Pulmonary arteries: Adequate visualization of the pulmonary arteries to the subsegmental level. No pulmonary embolism. Dilated pulmonary artery measuring 33 millimeters which can be seen with pulmonary arterial hypertension. Aorta: Ascending aorta is normal in caliber. Ectatic dilatation of the ascending thoracic aorta at the level of the right main pulmonary artery measuring 42 millimeters. Lungs: Unremarkable. No consolidation. No masses. Pleural spaces: Unremarkable. No pneumothorax. No pleural effusion. Heart: Unremarkable. No cardiomegaly. No pericardial effusion. Coronary arteries: Coronary artery calcifications. Lymph nodes: Unremarkable. No enlarged lymph nodes. Gallbladder and biliary ducts: There has been a cholecystectomy. Bones/joints: Diffuse sclerotic lesion of T3 vertebral body, new. Multilevel endplate compression osseous deformities throughout the thoracic vertebrae for example T4-T7, vertebroplasty changes at L1. Moderate compression fracture of T12 and T7 vertebral bodies. Overall decreased bone mineralization. Soft tissues: Unremarkable. CT/CT angio chest PE protcl [id number] IMPRESSION: 1. No evidence of pulmonary embolism. 2. Coronary artery calcifications 3. Ectatic dilatation of the ascending thoracic aorta measuring 42 mm at the level of the right main pulmonary artery. 4. New diffuse sclerotic lesion in the T3 vertebral body. Consider further evaluation with MRI of the thoracic spine with and without contrast. 5. Multilevel thoracic vertebral endplate deformities with compression fractures at T12 and T7, and vertebroplasty at L1. Findings consistent with chronic compression injuries and underlying osteopenia or osteoporosis. 6. Dilated pulmonary artery measuring 33 millimeters which can be seen with pulmonary arterial hypertension.
[2024-12-26 11:54] LABS: Carbon Dioxide 49 mmol/L (22-29)
[2024-12-26] MEDS: ipratropium-albuterol 3 mL Neb INHALATION ×5 (12:04→23:27)
[2024-12-26 12:11] LABS: Lactic Sepsis W/Reflex 1.8 mmol/L (0.5-2.2)
[2024-12-26 12:20] LABS: NT Pro B Type Natriuretic Pept 116 pg/mL (0-125)
[2024-12-26 12:20] LABS: ABG PH Result 7.41 (7.35-7.45); Alveolar-Arterial Oxygen Gradi 3.6 mmHg (5-10); Arterial Blood Gas Hematocrit 46.7 % (37-47); Base Excess ABG 23.6 mmol/L (-2.0-2.0); Blood Gas Operator Identificat AMH; Blood Gas Sample Site Brachial, right; Blood Gas Sample Type Arterial; Carboxyhemoglobin 2.1 %THgb (0.4-20.1); HCO3 ABG 54.6 mmol/L (22-26); HGB O2 Sat 95.1 % (95-100); Ionized Calcium Level - ABG 1.2 mmol/L (1.1-1.4); Methemoglobin 0.9 % (0.4-1.5); Oxygen Device NC; Oxygen Saturation ABG 98.1; PO2 ABG 95.8 mmHg (80.0-100.0); PO2 FiO2 Ratio Arterial Blood 299; Potassium Level - ABG 2.8 mmol/L (3.5-5.0); Total Hemoglobin 15.2 g/dL (12-16)
[2024-12-26] MEDS: iohexol 350 mg/mL 500 mL Btl (per mL) IV (12:32)
[2024-12-26] MEDS: potassium chloride oral liq 20 mEq/15 mL UDC 40 MEQ PO (12:42)
[2024-12-26 12:58] LABS: Magnesium 1.6 mg/dL (1.7-2.3)
--- NOTE | 2024-12-26 12:58 | PC.PHAR ---
Daughter says pt has not taken any medications yet today, they could barely get her out of bed. Med Rec completed by pharmacy med list with last fill dates and day supply.
[2024-12-26] MEDS: potassium chloride premix 100 ML 25 MEQ IV (12:59)
--- NOTE | 2024-12-26 13:12 | ECG_ITS ---
[facility] Test Date: 2024-12-26 Pat Name: Angie Naranjo Department: Room: [facility] Gender: Female Solutions Consultant: : [id number] Requested By: Quinton Moyer Order Number: [id number] Asa MD: Nery Mann M.D. Measurements Intervals [place] Rate: 81 P: 60 ID: [id number] QRS: -41 QRSD: 89 T: 21 QT: 409 QTc: 477 Interpretive Statements SINUS RHYTHM POSSIBLE LEFT ATRIAL ENLARGEMENT [-0.1mV P-WAVE IN V1/V2] LEFT AXIS DEVIATION [QRS AXIS < -30] POSSIBLE ANTERIOR MYOCARDIAL INFARCTION , OF INDETERMINATE AGE [30 ms Q WAVE IN V3/V4, OR R < 0.2 mV IN V4] Compared to ECG 12/26/2024 11:39:11 Left-axis deviation now present Left anterior fascicular block no longer present Myocardial infarct finding still present Electronically Signed On 12-29-2024 20:09:06 CDT by Nery Mann M.D. [email or web address]
--- NOTE | 2024-12-26 13:34 | PM.HP ---
Providers/Chief Complaint Admitting Physician: Yamileth Ortiz MD Primary Care Provider: Afia Barrett NP Chief Complaint: chest pain; sob History of Present Illness Angie Naranjo is a 59 year old female with past medical history of COPD, on supplemental oxygen 3 L via nasal cannula, chronic hypercapnic respiratory failure, multiple vertebral compression fractures, CAD, hypertension, hyperlipidemia, lumbar stenosis, GERD presented with complaint of chest pain since 1 week. As per the patient she has been having intermittent chest pain midsternal, associated with shortness of breath, gradually worsening since 1 week. Denies any complaint of fever, cough, dizziness, palpitations, bowel or urinary complaints. Denies any history of recent travel or sick contact. She lives at home with her daughter, son-in-law and 3 grandkids. On arrival in the ER she was found to have pCO2 of 86 on ABG. Was started on BiPAP. WBC count 11.6 CTA chest negative for acute PE Chest x-ray negative for acute findings 2 sets of troponin was 20, 17 EKG was sinus rhythm at 81 bpm, no acute ST-T changes Respiratory panel pending Had a cardiac cath done in 06/01 which showed mild CAD ECHO 06/01 Normal left ventricular size and systolic function, EF 57 %. Moderate aortic valve regurgitation. Trace tricuspid valve regurgitation. No regional wall motion abnormalities. Estimated pulmonary artery peak systolic pressure 24 mmHg There is no pericardial effusion. There are no intracardiac masses. Review of Systems General: Reports: 10 or more systems reviewed and unremarkable except in HPI and below Medications/Allergies Home Medications ?Medication ?Instructions ?Recorded ?Confirmed ?Last Taken ?Type Nebulizer machine #1 ea 12/06/20 12/26/24 09/18/23 Rx levothyroxine 100 mcg tablet 100 mcg PO DAILY #90 tabs 12/15/20 12/26/24 12/25/24 Rx clonidine HCl 0.1 mg tablet 0.1 mg PO DAILY PRN hypertensive 03/06/21 12/26/24 05/17/24 20:00 Rx emergency #90 tabs fluoxetine 20 mg capsule (Prozac) 20 mg PO DAILY 01/04/22 12/26/24 12/25/24 History cholecalciferol (vitamin D3) 50 2,000 unit PO DAILY #30 tabs 01/29/22 12/26/24 12/25/24 Rx mcg (2,000 unit) tablet clopidogrel 75 mg tablet 75 mg PO DAILY 02/03/22 12/26/24 12/25/24 History albuterol sulfate 90 mcg/actuation 2 inh inhalation Q8H PRN shortness 02/06/22 12/26/24 05/18/24 05:00 Rx aerosol inhaler of breath or wheezing #8.5 grams atorvastatin 40 mg tablet 40 mg PO QPM 08/23/22 12/26/24 12/25/24 History cyclobenzaprine 10 mg tablet 10 mg PO BID 10/10/22 12/26/24 12/25/24 History topiramate 25 mg tablet 25 mg PO BID 10/10/22 12/26/24 12/25/24 History pantoprazole 40 mg tablet,delayed 40 mg PO DAILY #30 tabs 09/19/23 12/26/24 05/18/24 05:00 Rx release (Protonix) oxycodone-acetaminophen 10 mg-325 1 tab PO Q8H PRN Pain 11/11/23 12/26/24 12/25/24 History mg tablet secukinumab 150 mg/mL subcutaneous 300 mg (2 mL) SUBCUT .S6izopc #2 mL 12/16/23 12/26/24 05/05/24 Rx pen injector (Cosentyx Pen 300 mg/2 Pens () furosemide 20 mg tablet See Rx Instructions .Route 03/30/24 12/26/24 12/25/24 Rx .COMPLEX #315 tabs nitroglycerin 0.4 mg sublingual 0.4 mg sublingual Q5M PRN chest 05/06/24 12/26/24 Unknown Rx tablet pain #30 tabs metoprolol tartrate 50 mg tablet 50 mg PO BID #60 tabs 05/19/24 12/26/24 Unknown Rx ondansetron 4 mg disintegrating 4 mg PO Q8H PRN nausea and 10/21/24 12/26/24 Unknown Rx tablet vomiting #10 tabs prednisone 10 mg tablet 10 mg PO DAILY #30 tabs 11/08/24 12/26/24 12/25/24 Rx carvedilol 25 mg tablet 25 mg PO BID 12/26/24 12/26/24 12/25/24 History folic acid 1 mg tablet 1 mg PO DAILY 12/26/24 12/26/24 Unknown History ipratropium 0.5 mg-albuterol 3 mg 3 ml inhalation QID PRN Shortness 12/26/24 12/26/24 Unknown History (2.5 mg base)/3 mL nebulization Of Breath soln isosorbide mononitrate 30 mg 30 mg PO BID 12/26/24 12/26/24 12/25/24 History tablet,extended release 24 hr potassium chloride 10 mEq 10 meq PO BID 12/26/24 12/26/24 12/25/24 History tablet,extended release Allergies Allergy/AdvReac Type Severity Reaction Status Date / Time sertraline (From Zoloft) Allergy Unknown Unknown Verified 12/26/24 11:28 aspirin Allergy Unknown Verified 12/26/24 11:28 buspirone (From BuSpar) Allergy Unknown Verified 12/26/24 11:28 codeine Allergy Unknown Verified 12/26/24 11:28 diltiazem Allergy Unknown Verified 12/26/24 11:28 duloxetine Allergy Unknown Verified 12/26/24 11:28 gabapentin (From Neurontin) Allergy Unknown Verified 12/26/24 11:28 ibuprofen Allergy UNKNOWN Verified 12/26/24 11:28 iodine Allergy Unknown Verified 12/26/24 11:28 ketorolac (From Toradol) Allergy UNKNOWN Verified 12/26/24 11:28 lisinopril Allergy Unknown Verified 12/26/24 11:28 Penicillins Allergy Unknown Verified 12/26/24 11:28 pregabalin (Lyrica) Allergy Unknown Verified 12/26/24 11:28 Sulfa (Sulfonamide Allergy Unknown Verified 12/26/24 11:28 Antibiotics) tizanidine Allergy Unknown Verified 12/26/24 11:28 tramadol Allergy Unknown Verified 12/26/24 11:28 varenicline (From Chantix) Allergy UNKNOWN Verified 12/26/24 11:28 venlafaxine Allergy Unknown Verified 12/26/24 11:28 verapamil Allergy ADR-Fatigue Verified 12/26/24 11:28 d PFSH Acute PFSH: Medical History Pneumonia Psoriatic arthritis Compression fracture Acute respiratory failure with hypoxia Community acquired pneumonia Facial swelling Ischemic stroke Respiratory failure Anxiety Bereavement counseling Immunization counseling High risk medication use Depression with anxiety Aortic regurgitation Hypothyroidism GERD without esophagitis Intermittent palpitations Hyperlipidemia Seronegative rheumatoid arthritis Essential (primary) hypertension Eczema Inflammatory arthritis Fibromyalgia Polyarticular psoriatic arthritis Surgical History H/O esophagogastroduodenoscopy (11/07/20) H/O breast biopsy Status post colonoscopy (11/07/20) H/O thyroidectomy Hx of cholecystectomy History of tonsillectomy Family History Mother Rheumatoid arthritis Father Rheumatoid arthritis Leukemia Denies family history of Lupus Social History Smoking and tobacco/nicotine status: current every day tobacco/nicotine user cigarettes Packs smoked per day: 0.25 Years cigarettes smoked: 25 [ Other cigarette details: 2ppd x 25 years, currently trying to quit] Second hand smoke exposure: Yes Alcohol intake: never Substance/Drug Use: never Marital status: Current occupational status: disabled Current gender identity: Female Vitals/I&O/Wt Last Vital Signs Temp 98.0 F 12/26/24 11:19 Pulse 91 12/26/24 12:55 Resp 18 12/26/24 12:08 BP 138/79 12/26/24 11:19 Pulse Ox 93 12/26/24 12:55 O2 Del Method Nasal Cannula 12/26/24 12:08 O2 Flow Rate 3 12/26/24 12:08 FiO2 30 12/26/24 12:55 12/25/24 12/26/24 12/26/24 22:59 06:59 14:59 Intake Total 0 / 0 Balance 0 / 0 Weight last 48 hrs Weight 72.575 kg Data 12/26/24 11:20 12/26/24 11:20 Micro: Microbiology 12/26/24 12:06 Blood Culture - Preliminary Blood SPECIMEN COLLECTED 12/26/24 11:20 Blood Culture - Preliminary Blood SPECIMEN COLLECTED A&P Assessment and plan (1) Acute exacerbation of chronic obstructive airways disease: (2) Vertebral compression fracture: Qualifiers: Encounter type: subsequent encounter Fracture healing: with routine healing Fracture of vertebra location: thoracic Thoracic vertebra fracture level: T3 Qualified Code(s): S22.030D - Wedge compression fracture of third thoracic vertebra, subsequent encounter for fracture with routine healing (3) Acute on chronic hypoxic respiratory failure: (4) Atherosclerotic heart disease [place] coronary artery w/angina pectoris: Qualifiers: [place] vs. transplanted heart: [place] heart Qualified Code(s): I25.119 - Atherosclerotic heart disease of [place] coronary artery with unspecified angina pectoris (5) Barretts esophagus: (6) GERD (gastroesophageal reflux disease): (7) Hyperlipidemia: Qualifiers: Hyperlipidemia type: mixed hyperlipidemia Qualified Code(s): E78.2 - Mixed hyperlipidemia (8) Essential (primary) hypertension: (9) COPD (chronic obstructive pulmonary disease): (10) Fibromyalgia: Miroslava Naranjo is a 59 year old female with past medical history of COPD, on supplemental oxygen 3 L via nasal cannula, chronic hypercapnic respiratory failure, multiple vertebral compression fractures, CAD, hypertension, hyperlipidemia, lumbar stenosis, GERD presented with complaint of gradually worsening chest pain associated with shortness of breath on exertion, orthopnea since 1 week likely secondary to COPD exacerbation On arrival in the ER she was found to have pCO2 of 86 on ABG. Was started on BiPAP. WBC count 11.6 CTA chest negative for acute PE Chest x-ray negative for acute findings 2 sets of troponin was 20, 17 EKG was sinus rhythm at [address], [address]-T changes Respiratory panel pending Had a cardiac cath done in 06/01 which showed mild CAD ECHO 06/01 Normal left ventricular size and systolic function, EF 57 %. Moderate aortic valve regurgitation. Trace tricuspid valve regurgitation. No regional wall motion abnormalities. Estimated pulmonary artery peak systolic pressure 24 mmHg There is no pericardial effusion. There are no intracardiac masses. #COPD exacerbation-less likely ACS, and likely due to flulike syndrome 2 sets of troponins 20,17 EKG was normal sinus rhythm with no acute ST-T changes Received aspirin 324 mg x 1 Chest x-ray negative for acute findings CTA chest negative for acute PE DuoNeb x 2 Was started on BiPAP in ED. 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 pantoprazole as above DVT prophylaxis with subcutaneous Lovenox CODE STATUS discussed with patient, she is full code PDMP PDMP Reviewed: Not Reviewed Attestations Medical Necessity Statement*: She needs continued hospitalization crossing 2 midnights for management of acute hypoxic and hypercarbic respiratory failure with supplemental oxygen, IV steroids, IV antibiotics, cardiac monitoring and supportive care Time Spent in Patient Care: 40 minutes Coding Level of Care Code Acute Code for Chg Fwd Diagnoses Acute exacerbation of chronic obstructive airways disease J44.1 Compression fracture of T3 vertebra with routine healing, subsequent encounter S22.030D Encounter type: subsequent encounter Fracture healing: with routine healing Fracture of vertebra location: thoracic Thoracic vertebra fracture level: T3 Acute on chronic hypoxic respiratory failure J96.21 Atherosclerosis of [place] coronary artery of [place] heart with angina pectoris I25.119 [place] vs. transplanted heart: [place] heart Barretts esophagus K22.70 GERD (gastroesophageal reflux disease) K21.9 Mixed hyperlipidemia E78.2 Hyperlipidemia type: mixed hyperlipidemia Essential (primary) hypertension I10 COPD (chronic obstructive pulmonary disease) J44.9 Fibromyalgia M79.7 Time Spent (min) 40
[2024-12-26 13:46] LABS: Troponin 5 2HR 17.09 ng/L (0-10)
[2024-12-26 13:59] LABS: Troponin 5 2HR Delta -2.91 ABS# (0-10)
--- NOTE | 2024-12-26 14:10 | PC.NURSE ---
unable to obtain V/S, pt was taken to floor by PATTI Fry. she removed the pts computer from the back of vitals machine. unable to restore vitals from machine.
[2024-12-26] MEDS: magnesium sulfate premix 1 GM/100 ML PIGGYBACK IV (14:26)
[2024-12-26] MEDS: enoxaparin 40 mg/0.4 mL Syringe SUBCUT (14:26)
[2024-12-26] MEDS: famotidine 20 mg/2 mL INJ IVP (14:27)
[2024-12-26 14:48] LABS: Influenza A NEGATIVE (Negative); Influenza B NEGATIVE (Negative); Respiratory Syncytial Virus Ce NEGATIVE (Negative); SARS-CoV-2 PCR NEGATIVE (Negative)
[2024-12-26] MEDS: AZITHROMYCIN ADD-Vantage 500 MG in 0.9% NaCl ADD-Vantage 250 ML 250 MG IV (16:57)
[2024-12-26 16:58] LABS: ABG PCO2 86.6 mmHg (35-45)
--- NOTE | 2024-12-26 17:12 | ECG_ITS ---
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 Measurements Intervals [place] Rate: 79 P: 72 [place]: 160 QRS: -29 QRSD: 88 T: 20 QT: 409 QTc: 470 Interpretive Statements SINUS RHYTHM POSSIBLE LEFT ATRIAL ENLARGEMENT [-0.1mV P-WAVE IN V1/V2] POSSIBLE ANTERIOR MYOCARDIAL INFARCTION , OF INDETERMINATE AGE [30 ms Q WAVE IN V3/V4, OR R < 0.2 mV IN V4] Compared to ECG 12/26/2024 13:53:09 Left-axis deviation no longer present Myocardial infarct finding still present Electronically Signed On 12-29-2024 20:08:28 CDT by Nery Mann M.D. [email or web address]
[2024-12-26 17:40] LABS: Troponin 5 6HR 11.77 ng/L (0-10)
[2024-12-26 17:41] LABS: Troponin 5 6HR Delta -8.23 ng/L (0-12)
[2024-12-26] MEDS: isosorbide mononitrate ER 30 mg Tablet PO (18:04)
[2024-12-26] MEDS: potassium chloride ER 10 mEq Tablet PO (18:04)
[2024-12-26] MEDS: cyclobenzaprine 10 mg Tablet PO (18:05)
[2024-12-26] MEDS: topiramate 25 mg Tablet PO (18:05)
[2024-12-26] MEDS: carvedilol 25 mg Tablet PO (18:05)
[2024-12-26] MEDS: atorvastatin 40 mg Tablet PO (18:05)
[2024-12-26] MEDS: oxyCODONE-APAP 10-325 mg Tablet 1 TAB PO (21:19)
[2024-12-27] VITALS (39 sets, daily range): BP systolic 95–155; BP diastolic 55–99; PULSE 76–115; RESP 13–38; TEMP 36.4–37.2; O2SAT 89–98
[2024-12-27] MEDS: famotidine 20 mg/2 mL INJ IVP ×2 (02:41→14:14)
[2024-12-27] MEDS: ipratropium-albuterol 3 mL Neb INHALATION ×5 (03:45→23:43)
[2024-12-27 05:19] LABS: Lymphocytes # 0.7 10^3/uL (0.8-4.8); Lymphocytes % 8.9 %; Mean Corpuscular HGB Conc 31.5 g/dL (30-55); Mean Corpuscular Hemoglobin 30.1 pg (27-33); Mean Corpuscular Volume 95.7 fl (85-98); Monocytes # 0.2 10^3/uL (0.2-0.9); Monocytes % 2.5 %; Neutrophils # 7.08 10^3/uL (1.8-7.7); Neutrophils % 87.7 %; Nucleated Red Blood Cells % 0 %; Platelet Count 221 10^3/cmm (157-399); Red Blood Count 4.18 10^6/uL (3.85-5.65); White Blood Count 8.07 10^3/uL (3.29-11.43)
[2024-12-27 05:51] LABS: Alanine Aminotransferase 10 U/L (0-33); Albumin Level 3.3 g/dL (3.5-5.2); Alkaline Phosphatase 83 U/L (35-105); Anion Gap 13.5 (5-19); Aspartate Amino Transferase 12 U/L (0-32); Blood Urea Nitrogen 11 mg/dL (8-23); Calcium 9.2 mg/dL (8.5-10.5); Carbon Dioxide 40 mmol/L (22-29); Chloride 84 mmol/L (98-107); Creatinine Clr Calc Pharmacy 78.9545; Globulin 2.4 g/dL (1.3-4.6); Glomerular Filtration Rate 85.1 mL/min (90-130); Glucose 173 mg/dL (65-115); Magnesium 1.8 mg/dL (1.7-2.3); Osmolality Calculated 282 mOsm/kg (285-295); Potassium 3.5 mmol/L (3.5-5.1); Sodium 134 mmol/L (136-145); Thyroid Stimulating Hormone 0.49 uIU/mL (0.27-4.20); Total Bilirubin 0.5 mg/dL (0.15-1.2); Total Protein 5.7 g/dL (6.6-8.7)
[2024-12-27 05:52] LABS: NT Pro B Type Natriuretic Pept 211 pg/mL (0-125)
[2024-12-27] MEDS: potassium chloride ER 20 mEq Tablet 40 MEQ PO ×2 (09:15→14:14)
[2024-12-27] MEDS: methylPREDNISolone sod succ 40 mg/mL INJ IVP ×3 (09:15→23:39)
[2024-12-27] MEDS: oxyCODONE-APAP 10-325 mg Tablet 1 TAB PO ×3 (09:15→23:39)
[2024-12-27] MEDS: potassium chloride ER 10 mEq Tablet PO ×2 (09:15→17:40)
[2024-12-27] MEDS: cyclobenzaprine 10 mg Tablet PO ×2 (09:16→17:40)
[2024-12-27] MEDS: isosorbide mononitrate ER 30 mg Tablet PO ×2 (09:16→17:40)
[2024-12-27] MEDS: clopidogrel 75 mg Tablet PO (09:16)
[2024-12-27] MEDS: FUROsemide 20 mg Tablet PO ×2 (09:16→09:17)
[2024-12-27] MEDS: levothyroxine 100 mcg Tablet PO (09:16)
[2024-12-27] MEDS: pantoprazole DR 40 mg Tablet PO (09:16)
[2024-12-27] MEDS: fluoxetine 20 mg Capsule PO (09:16)
[2024-12-27] MEDS: carvedilol 25 mg Tablet PO ×2 (09:16→17:40)
[2024-12-27] MEDS: topiramate 25 mg Tablet PO ×2 (09:17→17:40)
[2024-12-27 12:52] LABS: Bilirubin Urine Negative (Negative); Blood Urine Negative (Negative); Glucose Urine UA Negative (Normal); Ketones Urine Trace (Negative); Leukocyte Esterase Urine 1+ (Negative); Nitrate Urine Negative (Negative); Protein Urine 1+ (Negative); Specific Gravity, Urine 1.026 (1.005-1.030); Urine Appearance Cloudy (CLEAR); Urine Color Dark Yellow (Yellow); pH Urine 6.5 (5-7)
[2024-12-27 12:57] LABS: Add Urine Microscopic? YES; Bacteria Urine 2+ /hpf; Hyaline Casts Urine 11.97 /lpf
[2024-12-27 13:00] LABS: Add Urine Culture? Yes
--- NOTE | 2024-12-27 13:15 | PM.PN ---
Subjective Subjective: No acute overnight events noted. Seen at bedside this morning. Reports feeling slightly better as compared to admission. Denies any worsening shortness of breath or chest pain or discomfort. She was started on BiPAP overnight for shortness of breath. Will take her off BiPAP and start on nasal cannula 4 L. Monitor and repeat ABG to evaluate for hypercarbia. Medications: Reviewed: Yes Vitals/I&O/Wt Last Vital Signs Temp 98.2 F 12/27/24 04:00 Pulse 107 H 12/27/24 11:17 Resp 21 H 12/27/24 11:17 BP 122/67 12/27/24 05:00 Pulse Ox 94 12/27/24 11:17 O2 Del Method Nasal Cannula 12/27/24 11:17 O2 Flow Rate 4 12/27/24 11:17 FiO2 30 12/27/24 07:47 12/26/24 12/27/24 12/27/24 22:59 06:59 14:59 Intake Total 930 / 930 0 / 930 120 / 120 Output Total 200 / 200 250 / 250 Balance 730 / 730 0 / 730 -130 / -130 Weight last 48 hrs Weight 71.5 kg Weight 73 kg Weight 72.575 kg Physical Exam Narrative: She is alert awake oriented x 3, in moderate respiratory distress Chest air entry equal on both sides, diffuse coarse rhonchi and occasional wheezing present Cardiovascular normal heart sounds, no murmurs Abdomen soft nontender nondistended normal bowel sounds Extremities minimal lower extremity pitting edema present Data 12/27/24 04:55 12/27/24 04:55 Micro: Microbiology 12/26/24 12:06 Blood Culture - Preliminary Blood NEGATIVE TO DATE 12/26/24 11:20 Blood Culture - Preliminary Blood NEGATIVE TO DATE A&P Assessment and plan (1) Acute exacerbation of chronic obstructive airways disease: (2) Vertebral compression fracture: Qualifiers: Encounter type: subsequent encounter Fracture healing: with routine healing Fracture of vertebra location: thoracic Thoracic vertebra fracture level: T3 Qualified Code(s): S22.030D - Wedge compression fracture of third thoracic vertebra, subsequent encounter for fracture with routine healing (3) Acute on chronic hypoxic respiratory failure: (4) Atherosclerotic heart disease [place] coronary artery w/angina pectoris: Qualifiers: [place] vs. transplanted heart: [place] heart Qualified Code(s): I25.119 - Atherosclerotic heart disease of [place] coronary artery with unspecified angina pectoris (5) Barretts esophagus: (6) GERD (gastroesophageal reflux disease): (7) Hyperlipidemia: Qualifiers: Hyperlipidemia type: mixed hyperlipidemia Qualified Code(s): E78.2 - Mixed hyperlipidemia (8) Essential (primary) hypertension: (9) COPD (chronic obstructive pulmonary disease): (10) Fibromyalgia: Miroslava Naranjo is a 59 year old female with past medical history of COPD, on supplemental oxygen 3 L via nasal cannula, chronic hypercapnic respiratory failure, multiple vertebral compression fractures, CAD, hypertension, hyperlipidemia, lumbar stenosis, GERD presented with complaint of gradually worsening chest pain associated with shortness of breath on exertion, orthopnea since 1 week likely secondary to COPD exacerbation On arrival in the ER she was found to have pCO2 of 86 on ABG. Was started on BiPAP. WBC count 11.6 CTA chest negative for acute PE Chest x-ray negative for acute findings 2 sets of troponin was 20, 17 EKG was sinus rhythm at [address], [address]-T changes Respiratory panel pending Had a cardiac cath done in 06/01 which showed mild CAD ECHO 06/01 Normal left ventricular size and systolic function, EF 57 %. Moderate aortic valve regurgitation. Trace tricuspid valve regurgitation. No regional wall motion abnormalities. Estimated pulmonary artery peak systolic pressure 24 mmHg There is no pericardial effusion. There are no intracardiac masses. #COPD exacerbation-less likely ACS, and likely due to flulike syndrome 2 sets of troponins 20,17 EKG was normal sinus rhythm with no acute ST-T changes Received aspirin 324 mg x 1 Chest x-ray negative for acute findings CTA chest negative for acute PE DuoNeb x 2 Was started on BiPAP in ED. will take her off BiPAP and start on 4 L nasal cannula Will do IV azithromycin 500 mg daily for 3 doses IV Solu-Medrol 40 mg every 8 hours DuoNeb every 6 hours Budesonide inhalation twice daily RT assess and treat #CAD-stable continue SUBCONTRACT ADMINISTRATOR coreg, imdur, potassium, lipitor, plavix, lasix, #Vertebral compression fractures- continue SUBCONTRACT ADMINISTRATOR flexeril, percocet prn, #Hypothyroidism- continue SUBCONTRACT ADMINISTRATOR levothyroxine #GERD- cont SUBCONTRACT ADMINISTRATOR pantoprazole #Fibromyalgia- stable, continue SUBCONTRACT ADMINISTRATOR prozac and topiramate GI prophylaxis with p.o. pantoprazole as above DVT prophylaxis with subcutaneous Lovenox CODE STATUS discussed with patient, she is full code 12/27/24 Patient reports minimal improvement since admission. Will continue current management. COPD exacerbation-will continue IV steroids, DuoNeb and BiPAP/supplemental oxygen Leukocytosis resolved with WBC of 8.0 Respiratory panel negative Will check ABG for hypercarbia and evaluation for BiPAP UTI-UA positive with bacteria 2+ Will start on IV ceftriaxone 1 g daily Follow-up urine culture Continue to monitor in ICU PDMP PDMP Reviewed: Not Reviewed Attestations Medical Necessity Statement*: She needs continued hospitalization crossing 2 midnights for management of acute hypoxic and hypercarbic respiratory failure with supplemental oxygen, IV steroids, IV antibiotics, cardiac monitoring and supportive care and UTI Time Spent in Patient Care: 20 minutes Coding Level of Care Code Acute Code for Chg Fwd Diagnoses Acute exacerbation of chronic obstructive airways disease J44.1 Compression fracture of T3 vertebra with routine healing, subsequent encounter S22.030D Encounter type: subsequent encounter Fracture healing: with routine healing Fracture of vertebra location: thoracic Thoracic vertebra fracture level: T3 Acute on chronic hypoxic respiratory failure J96.21 Atherosclerosis of [place] coronary artery of [place] heart with angina pectoris I25.119 [place] vs. transplanted heart: [place] heart Barretts esophagus K22.70 GERD (gastroesophageal reflux disease) K21.9 Mixed hyperlipidemia E78.2 Hyperlipidemia type: mixed hyperlipidemia Essential (primary) hypertension I10 COPD (chronic obstructive pulmonary disease) J44.9 Fibromyalgia M79.7 Time Spent (min) 20
[2024-12-27 13:53] LABS: ABG PCO2 54.7 mmHg (35-45); ABG PH Result 7.54 (7.35-7.45); Alveolar-Arterial Oxygen Gradi 16.7 mmHg (5-10); Arterial Blood Gas Hematocrit 41.8 % (37-47); Base Excess ABG 20.4 mmol/L (-2.0-2.0); Blood Gas Allen Test Pos; Blood Gas Operator Identificat BROMA; Blood Gas Sample Site Radial, right; Blood Gas Sample Type Arterial; Carboxyhemoglobin 1.3 %THgb (0.4-20.1); HCO3 ABG 46.3 mmol/L (22-26); HGB O2 Sat 92.2 % (95-100); Ionized Calcium Level - ABG 1.2 mmol/L (1.1-1.4); Oxygen Saturation ABG 94.4; PO2 ABG 62.3 mmHg (80.0-100.0); PO2 FiO2 Ratio Arterial Blood 173; Potassium Level - ABG 3.6 mmol/L (3.5-5.0); Total Hemoglobin 13.6 g/dL (12-16)
[2024-12-27] MEDS: AZITHROMYCIN ADD-Vantage 500 MG in 0.9% NaCl ADD-Vantage 250 ML 250 MG IV (14:10)
[2024-12-27] MEDS: cefTRIAXone 1,000 mg SDV 1000 MG IVP (14:14)
[2024-12-27] MEDS: enoxaparin 40 mg/0.4 mL Syringe SUBCUT (14:20)
--- NOTE | 2024-12-27 17:00 | PC.NURSE ---
Report called to [facility] and given to PATTI Carroll
--- NOTE | 2024-12-27 17:20 | PC.NURSE ---
This nurse took report from PATTI Fry in ICU at [id number].
--- NOTE | 2024-12-27 17:30 | PC.NURSE ---
Evening medications administer Pt transferred to room 253-1 via W/C. All belongings with pt. Pt stated she had a brown oxygenator with her upon her arrival to ED. This nurse transferred pt from ED to ICU yesterday the only oxygen equipment seen was the O2 tank on the ED bed.
[2024-12-27] MEDS: atorvastatin 40 mg Tablet PO (17:40)
--- NOTE | 2024-12-27 17:58 | PC.NURSE ---
This nurse assumed care of pt at this time.
[2024-12-27] MEDS: magnesium oxide 400 mg tablet PO (18:08)
[2024-12-27] MEDS: nicotine 21 mg Patch 1 PATCH TRANSDERMA (22:17)
[2024-12-28] VITALS (19 sets, daily range): BP systolic 97–148; BP diastolic 60–80; PULSE 72–111; RESP 14–27; TEMP 36.4–37.1; O2SAT 94–98
[2024-12-28] MEDS: famotidine 20 mg/2 mL INJ IVP ×2 (02:14→14:20)
[2024-12-28] MEDS: ipratropium-albuterol 3 mL Neb INHALATION ×6 (03:00→23:22)
[2024-12-28 05:10] LABS: Basophils % 0.1 %; Lymphocytes # 0.7 10^3/uL (0.8-4.8); Lymphocytes % 5.2 %; Mean Corpuscular HGB Conc 32.2 g/dL (30-55); Mean Corpuscular Volume 93.2 fl (85-98); Mean Platelet Volume 10.3 fL (7.4-10.4); Monocytes # 0.6 10^3/uL (0.2-0.9); Monocytes % 4.4 %; Neutrophils # 11.53 10^3/uL (1.8-7.7); Neutrophils % 89.6 %; Nucleated Red Blood Cells % 0 %; Platelet Count 255 10^3/cmm (157-399); Red Blood Count 3.97 10^6/uL (3.85-5.65); Red Cell Distribution Width 13.1 % (12.1-15.1); White Blood Count 12.86 10^3/uL (3.29-11.43)
[2024-12-28 05:31] LABS: Alanine Aminotransferase 10 U/L (0-33); Albumin Level 3.7 g/dL (3.5-5.2); Alkaline Phosphatase 69 U/L (35-105); Aspartate Amino Transferase 12 U/L (0-32); Blood Urea Nitrogen 15 mg/dL (8-23); Calcium 9.3 mg/dL (8.5-10.5); Carbon Dioxide 37 mmol/L (22-29); Chloride 90 mmol/L (98-107); Creatinine Clr Calc Pharmacy 84.8621; Globulin 2.1 g/dL (1.3-4.6); Glomerular Filtration Rate 85.1 mL/min (90-130); Glucose 157 mg/dL (65-115); Magnesium 1.9 mg/dL (1.7-2.3); Osmolality Calculated 288 mOsm/kg (285-295); Sodium 137 mmol/L (136-145); Total Bilirubin 0.3 mg/dL (0.15-1.2); Total Protein 5.8 g/dL (6.6-8.7)
[2024-12-28] MEDS: oxyCODONE-APAP 10-325 mg Tablet 1 TAB PO ×3 (05:43→18:04)
[2024-12-28] MEDS: methylPREDNISolone sod succ 40 mg/mL INJ IVP ×2 (07:07→14:20)
[2024-12-28] MEDS: isosorbide mononitrate ER 30 mg Tablet PO ×2 (07:44→18:05)
[2024-12-28] MEDS: nicotine 21 mg Patch 1 PATCH TRANSDERMA (07:44)
[2024-12-28] MEDS: FUROsemide 20 mg Tablet PO (07:44)
[2024-12-28] MEDS: cyclobenzaprine 10 mg Tablet PO ×2 (07:45→18:05)
[2024-12-28] MEDS: clopidogrel 75 mg Tablet PO (07:45)
[2024-12-28] MEDS: pantoprazole DR 40 mg Tablet PO (07:45)
[2024-12-28] MEDS: carvedilol 25 mg Tablet PO ×2 (07:45→18:05)
[2024-12-28] MEDS: topiramate 25 mg Tablet PO ×2 (07:45→18:04)
[2024-12-28] MEDS: potassium chloride ER 10 mEq Tablet PO ×2 (07:45→18:05)
[2024-12-28] MEDS: fluoxetine 20 mg Capsule PO (07:45)
[2024-12-28] MEDS: levothyroxine 100 mcg Tablet PO (07:45)
--- NOTE | 2024-12-28 07:50 | USCV_ITS ---
Angie Naranjo Age: 59 Gender: F : 1965 Exam Date: 12/28/2024 08:19 Ordering Phys: Yamileth Ortiz MD Technologist: Exam Location: [facility] [place] Indication: chest pain BP: 125 / 74 HR: 96 Rhythm: Sinus Technical Quality: Adequate MEASUREMENTS (Male / Female) Normal Values 2D ECHO LV Diastolic Diameter PLAX 3.2 cm 4.2 - 5.9 / 3.9 - 5.3 cm IVS Diastolic Thickness 1.3 cm 0.6 - 1.0 / 0.6 - 0.9 cm IVS Systolic Thickness 1.7 cm LVPW Diastolic Thickness 1.1 cm 0.6 - 1.0 / 0.6 - 0.9 cm LVPW Systolic Thickness 1.6 cm LVOT Diameter 2.0 cm LV Ejection Fraction 2D Teich 61.4 % LV Ejection Fraction MOD 4C 70.0 % LV Ejection Fraction MOD 2C 79.3 % LV Ejection Fraction 2C AL 79.7 % LA Diameter 3.1 cm RA Systolic Volume 4C AL 32.6 ml RA Systolic Volume 4C MOD 31.4 ml Aorta at Sinotubular Diameter 2.4 cm IVC Diameter 1.5 cm M-MODE LA Ao Ratio MM 1.3 AV Cusp Separation MM 1.7 cm DOPPLER AV Peak Velocity 351.7 cm/s LVOT Peak Velocity 117.0 cm/s AV Area Cont Eq vti 2.8 cm squared AV Area Cont Eq pk 1.1 cm squared MV Peak Velocity 124.0 cm/s MV Area PHT 5.7 cm squared Mitral E to A Ratio 0.7 TV Peak Velocity 212.0 cm/s TR Peak Velocity 313.0 cm/s TR Peak Gradient 39.2 mmHg TV Peak E Velocity 98.0 cm/s PV Peak Velocity 111.0 cm/s FINDINGS Left Ventricle Normal left ventricular size and systolic function, EF 70%.no regional wall motion abnormalities. Mild left ventricular hypertrophy. Grade I/IV diastolic dysfunction (abnormal relaxation filling pattern), normal to mildly elevated filling pressures. Right Ventricle The right ventricle is normal in size and function. Right Atrium The right atrium is normal in size. Left Atrium The left atrium is normal in size. Mitral Valve No gross abnormalities noted Aortic Valve Mild aortic valve regurgitation. Thickened aortic valve. Tricuspid Valve No gross abnormalities noted. Because of the poor Doppler signals, the PA pressure estimation is misleading Pulmonic Valve No gross abnormalities noted Pericardium Normal pericardium without effusion. Aorta Normal ascending aorta dimension. IVC Inferior vena cava not visualized. CONCLUSIONS Normal left ventricular size and systolic function, EF 70%.no regional wall motion abnormalities. Type I diastolic dysfunction. Mild left ventricular hypertrophy. Mild aortic valve regurgitation. Thickened aortic valve. The PA pressure could not be calculated because of the poor Doppler signals There is no pericardial effusion. There are no intracardiac masses. Compared to the study from 05/30/2023, there may not be a significant change Dr Nery Mann MD FACC (Electronically Signed) Final Date: 28 December 2024 13:45 S
--- NOTE | 2024-12-28 10:51 | PC.CHAP ---
Pastoral Care Encounter/Spiritual Assessment Type of Contact [] Declined advertising project manager visit [] Patient/Family/Request visit [] Outpatient visit [] Follow-up visit [] Physician referral [] Code/Alert [x] Routine visit [] Staff referral [] Actively dying [] Patient sleeping [] Family support [] [] Out of room [] Palliative care [] [] Receiving care in room [] Pre-surgical visit [] Trauma [] Long length of stay [] ICU visit [] Other: Relational/Emotional Strength [x] Patient feels connected with others/family/visitors/staff [] Distress [] Loneliness/isolation [] Abandonment Spirituality of Patient [x] Person of Inge [] Attends Mandaen of their Inge [x] Believes in Prayer [] Reads Bible or Gnosticism materials [] There are Spiritual issues to be addressed Csw Interventions [x] Prayer [x] Active listening [x] Non-anxious presence [x] Spiritual/emotional support [] Crisis/trauma care [] Spiritual counseling [] Bereavement support [] Provided bereavement packet [] Provided Bible/devotional materials [] Provided toy/stuffed animal, coloring book to patient or family member [] Provided Communion [] Anointing/[place] [] Salvation [x] Completed spiritual assessment [] Other: Impact on Illness or Injury [] Angry [] Fearful [] Anxious [] Often cries [] Exhaustion [] Unable to work [] Unable to attend protestant [] Unable to walk/stand [] Unable to read [] Unable to drive [] Unable to eat/drink [] Unable to sleep [] Unable to be with family [] Patient intubated [] Other: Summary Time spent with patient 10 min
--- NOTE | 2024-12-28 13:16 | PM.PN ---
Subjective Subjective: Seen her at bedside this morning. Reports feeling much better as compared to admission. Still getting mildly short of breath and hypoxic while ambulating. Patient educated about COPD exacerbation and hypoxia related to ambulation which will slowly resolve in the next few days. Medications: Reviewed: Yes Vitals/I&O/Wt Last Vital Signs Temp 98.2 F 12/28/24 11:54 Pulse 111 H 12/28/24 11:54 Resp 18 12/28/24 11:54 BP 125/77 12/28/24 11:54 Pulse Ox 96 12/28/24 11:54 O2 Del Method Nasal Cannula 12/28/24 11:54 O2 Flow Rate 3 12/28/24 11:21 FiO2 30 12/28/24 07:28 12/27/24 12/28/24 12/28/24 22:59 06:59 14:59 Intake Total 860 / 1380 1080 / 1080 Output Total 100 / 350 Balance 760 / 1030 1080 / 1080 Weight last 48 hrs Weight 84.085 kg Weight 71.5 kg Weight 73 kg Physical Exam Narrative: She is alert awake oriented x 3, in moderate respiratory distress Chest air entry equal on both sides, diffuse coarse rhonchi and occasional wheezing present, improved on left Cardiovascular normal heart sounds, no murmurs Abdomen soft nontender nondistended normal bowel sounds Extremities minimal lower extremity pitting edema present Data 12/28/24 04:43 12/28/24 04:43 Micro: Microbiology 12/27/24 12:40 Urine Culture - Preliminary Urine,Clean Catch 12/26/24 12:06 Blood Culture - Preliminary Blood NEGATIVE TO DATE 12/26/24 11:20 Blood Culture - Preliminary Blood NEGATIVE TO DATE A&P Assessment and plan (1) Acute exacerbation of chronic obstructive airways disease: (2) Vertebral compression fracture: Qualifiers: Encounter type: subsequent encounter Fracture healing: with routine healing Fracture of vertebra location: thoracic Thoracic vertebra fracture level: T3 Qualified Code(s): S22.030D - Wedge compression fracture of third thoracic vertebra, subsequent encounter for fracture with routine healing (3) Acute on chronic hypoxic respiratory failure: (4) Atherosclerotic heart disease [place] coronary artery w/angina pectoris: Qualifiers: [place] vs. transplanted heart: [place] heart Qualified Code(s): I25.119 - Atherosclerotic heart disease of [place] coronary artery with unspecified angina pectoris (5) Barretts esophagus: (6) GERD (gastroesophageal reflux disease): (7) Hyperlipidemia: Qualifiers: Hyperlipidemia type: mixed hyperlipidemia Qualified Code(s): E78.2 - Mixed hyperlipidemia (8) Essential (primary) hypertension: (9) COPD (chronic obstructive pulmonary disease): (10) Fibromyalgia: Miroslava Naranjo is a 59 year old female with past medical history of COPD, on supplemental oxygen 3 L via nasal cannula, chronic hypercapnic respiratory failure, multiple vertebral compression fractures, CAD, hypertension, hyperlipidemia, lumbar stenosis, GERD presented with complaint of gradually worsening chest pain associated with shortness of breath on exertion, orthopnea since 1 week likely secondary to COPD exacerbation On arrival in the ER she was found to have pCO2 of 86 on ABG. Was started on BiPAP. WBC count 11.6 CTA chest negative for acute PE Chest x-ray negative for acute findings 2 sets of troponin was 20, 17 EKG was sinus rhythm at 81 bpm, no acute ST-T changes Respiratory panel pending Had a cardiac cath done in 06/01 which showed mild CAD ECHO 06/01 Normal left ventricular size and systolic function, EF 57 %. Moderate aortic valve regurgitation. Trace tricuspid valve regurgitation. No regional wall motion abnormalities. Estimated pulmonary artery peak systolic pressure 24 mmHg There is no pericardial effusion. There are no intracardiac masses. #COPD exacerbation-less likely ACS, and likely due to flulike syndrome 2 sets of troponins 20,17 EKG was normal sinus rhythm with no acute ST-T changes Received aspirin 324 mg x 1 Chest x-ray negative for acute findings CTA chest negative for acute PE DuoNeb x 2 Was started on BiPAP in ED. will take her off BiPAP and start on 4 L nasal cannula Will do IV azithromycin 500 mg daily for 3 doses IV Solu-Medrol 40 mg every 8 hours DuoNeb every 6 hours Budesonide inhalation twice daily RT assess and treat #CAD-stable continue OPTICAL INSTRUMENT ASSEMBLY SUPERVISOR coreg, imdur, potassium, lipitor, plavix, lasix, #Vertebral compression fractures- continue OPTICAL INSTRUMENT ASSEMBLY SUPERVISOR flexeril, percocet prn, #Hypothyroidism- continue OPTICAL INSTRUMENT ASSEMBLY SUPERVISOR levothyroxine #GERD- cont OPTICAL INSTRUMENT ASSEMBLY SUPERVISOR pantoprazole #Fibromyalgia- stable, continue OPTICAL INSTRUMENT ASSEMBLY SUPERVISOR prozac and topiramate GI prophylaxis with p.o. pantoprazole as above DVT prophylaxis with subcutaneous Lovenox CODE STATUS discussed with patient, she is full code 12/27/24 Patient reports minimal improvement since admission. Will continue current management. COPD exacerbation-will continue IV steroids, DuoNeb and BiPAP/supplemental oxygen Leukocytosis resolved with WBC of 8.0 Respiratory panel negative Will check ABG for hypercarbia and evaluation for BiPAP UTI-UA positive with bacteria 2+ Will start on IV ceftriaxone 1 g daily Follow-up urine culture Continue to monitor in ICU 12/28/24 She was transferred to medical floor yesterday for further management. Has been doing well. Denies any new shortness of breath or chest pain. Lung examination improved on left side, right-sided coarse rhonchi and wheezing still present. Has been saturating well on 4 L per nasal cannula. Continue current management for COPD exacerbation and UTI, day 2 of antibiotics. Anticipating discharge in a.m. Counseled and educated about smoking cessation. Given nicotine patch. PDMP PDMP Reviewed: Not Reviewed Attestations Medical Necessity Statement*: Anticipating discharge in a.m. Time Spent in Patient Care: 15minutes Coding Level of Care Code Acute Code for Chg Fwd Diagnoses Acute exacerbation of chronic obstructive airways disease J44.1 Compression fracture of T3 vertebra with routine healing, subsequent encounter S22.030D Encounter type: subsequent encounter Fracture healing: with routine healing Fracture of vertebra location: thoracic Thoracic vertebra fracture level: T3 Acute on chronic hypoxic respiratory failure J96.21 Atherosclerosis of [place] coronary artery of [place] heart with angina pectoris I25.119 [place] vs. transplanted heart: [place] heart Barretts esophagus K22.70 GERD (gastroesophageal reflux disease) K21.9 Mixed hyperlipidemia E78.2 Hyperlipidemia type: mixed hyperlipidemia Essential (primary) hypertension I10 COPD (chronic obstructive pulmonary disease) J44.9 Fibromyalgia M79.7 Time Spent (min) 15
[2024-12-28] MEDS: enoxaparin 40 mg/0.4 mL Syringe SUBCUT (14:20)
[2024-12-28] MEDS: cefTRIAXone 1,000 mg SDV 1000 MG IVP (14:20)
[2024-12-28] MEDS: AZITHROMYCIN ADD-Vantage 500 MG in 0.9% NaCl ADD-Vantage 250 ML 250 MG IV (14:21)
[2024-12-28] MEDS: atorvastatin 40 mg Tablet PO (18:05)
[2024-12-29] VITALS (12 sets, daily range): BP systolic 118–150; BP diastolic 64–88; PULSE 66–106; RESP 16–24; TEMP 36.4–37; O2SAT 94–98
[2024-12-29] MEDS: oxyCODONE-APAP 10-325 mg Tablet 1 TAB PO ×3 (00:09→14:24)
[2024-12-29] MEDS: ipratropium-albuterol 3 mL Neb INHALATION ×3 (03:43→11:11)
[2024-12-29] MEDS: methylPREDNISolone sod succ 40 mg/mL INJ IVP (03:50)
[2024-12-29 06:04] LABS: Basophils % 0.1 %; Hematocrit 36.5 % (36-47); Lymphocytes # 0.7 10^3/uL (0.8-4.8); Lymphocytes % 5.5 %; Mean Corpuscular HGB Conc 31.8 g/dL (30-55); Mean Corpuscular Hemoglobin 30.1 pg (27-33); Mean Corpuscular Volume 94.6 fl (85-98); Mean Platelet Volume 10.3 fL (7.4-10.4); Monocytes # 0.9 10^3/uL (0.2-0.9); Monocytes % 7.4 %; Neutrophils # 10.44 10^3/uL (1.8-7.7); Neutrophils % 85.9 %; Nucleated Red Blood Cells % 0 %; Platelet Count 257 10^3/cmm (157-399); Red Blood Count 3.86 10^6/uL (3.85-5.65); Red Cell Distribution Width 13.2 % (12.1-15.1); White Blood Count 12.15 10^3/uL (3.29-11.43)
[2024-12-29 06:35] LABS: Alanine Aminotransferase 11 U/L (0-33); Albumin Level 3.9 g/dL (3.5-5.2); Alkaline Phosphatase 66 U/L (35-105); Anion Gap 12.8 (5-19); Aspartate Amino Transferase 10 U/L (0-32); Blood Urea Nitrogen 15 mg/dL (8-23); Calcium 9.3 mg/dL (8.5-10.5); Carbon Dioxide 35 mmol/L (22-29); Chloride 93 mmol/L (98-107); Creatinine Clr Calc Pharmacy 79.2599; Glomerular Filtration Rate 85.1 mL/min (90-130); Glucose 123 mg/dL (65-115); Magnesium 1.9 mg/dL (1.7-2.3); Osmolality Calculated 286 mOsm/kg (285-295); Potassium 3.8 mmol/L (3.5-5.1); Sodium 137 mmol/L (136-145); Total Bilirubin 0.2 mg/dL (0.15-1.2); Total Protein 5.9 g/dL (6.6-8.7)
[2024-12-29] MEDS: nicotine 21 mg Patch 1 PATCH TRANSDERMA (08:19)
[2024-12-29] MEDS: isosorbide mononitrate ER 30 mg Tablet PO (08:19)
[2024-12-29] MEDS: FUROsemide 20 mg Tablet PO ×2 (08:20)
[2024-12-29] MEDS: fluoxetine 20 mg Capsule PO (08:20)
[2024-12-29] MEDS: topiramate 25 mg Tablet PO (08:20)
[2024-12-29] MEDS: cyclobenzaprine 10 mg Tablet PO (08:20)
[2024-12-29] MEDS: carvedilol 25 mg Tablet PO (08:20)
[2024-12-29] MEDS: levothyroxine 100 mcg Tablet PO (08:20)
[2024-12-29] MEDS: pantoprazole DR 40 mg Tablet PO (08:20)
[2024-12-29] MEDS: potassium chloride ER 10 mEq Tablet PO (08:20)
[2024-12-29] MEDS: clopidogrel 75 mg Tablet PO (08:20)
--- NOTE | 2024-12-29 09:01 | PC.CHAP ---
Pastoral Care Encounter/Spiritual Assessment Type of Contact [] Declined timber robber visit [] Patient/Family/Request visit [] Outpatient visit [x] Follow-up visit [] Physician referral [] Code/Alert [x] Routine visit [] Staff referral [] Actively dying [] Patient sleeping [] Family support [] [] Out of room [] Palliative care [] [] Receiving care in room [] Pre-surgical visit [] Trauma [] Long length of stay [] ICU visit [] Other: Relational/Emotional Strength [x Patient feels connected with others/family/visitors/staff [] Distress [] Loneliness/isolation [] Abandonment Spirituality of Patient [x] Person of Inge [] Attends Latter Day of their Inge [x] Believes in Prayer [] Reads Bible or Worship materials [] There are Spiritual issues to be addressed Tool And Die Inspector Interventions [x] Prayer [x] Active listening [x] Non-anxious presence [x] Spiritual/emotional support [] Crisis/trauma care [] Spiritual counseling [] Bereavement support [] Provided bereavement packet [] Provided Bible/devotional materials [] Provided toy/stuffed animal, coloring book to patient or family member [] Provided Communion [] Anointing/[place] [] Salvation [x] Completed spiritual assessment [] Other: Impact on Illness or Injury [] Angry [] Fearful [] Anxious [] Often cries [] Exhaustion [] Unable to work [] Unable to attend sikh [] Unable to walk/stand [] Unable to read [] Unable to drive [] Unable to eat/drink [] Unable to sleep [] Unable to be with family [] Patient intubated [] Other: Summary Time spent with patient 5 min
--- NOTE | 2024-12-29 11:19 | P.DS_ITS ---
Discharge Providers Date of Admission: 12/26/24 12:39 Date of Discharge: December 29, 2024 Attending Provider at Admission: Yamileth Ortiz MD Attending Provider at Discharge: Yamileth Ortiz MD Primary Care Provider: Afia Barrett NP Diagnoses at Discharge Discharge Diagnosis (1) Acute exacerbation of chronic obstructive airways disease: Status: Acute (2) Vertebral compression fracture: Status: Acute Qualifiers: Encounter type: subsequent encounter Fracture healing: with routine healing Fracture of vertebra location: thoracic Thoracic vertebra fracture level: T3 Qualified Code(s): S22.030D - Wedge compression fracture of third thoracic vertebra, subsequent encounter for fracture with routine healing (3) Acute on chronic hypoxic respiratory failure: Status: Acute (4) Atherosclerotic heart disease [place] coronary artery w/angina pectoris: Status: Acute Qualifiers: [place] vs. transplanted heart: [place] heart Qualified Code(s): I25.119 - Atherosclerotic heart disease of [place] coronary artery with unspecified angina pectoris (5) Barretts esophagus: Status: Acute (6) GERD (gastroesophageal reflux disease): Status: Acute (7) Hyperlipidemia: Status: Acute Qualifiers: Hyperlipidemia type: mixed hyperlipidemia Qualified Code(s): E78.2 - Mixed hyperlipidemia (8) Essential (primary) hypertension: Status: Acute (9) COPD (chronic obstructive pulmonary disease): Status: Acute (10) Fibromyalgia: Status: Chronic Reason for Visit Reason for Visit: chest pain; sob Brief History: Angie Naranjo is a 59 year old female with past medical history of COPD, on supplemental oxygen 3 L via nasal cannula, chronic hypercapnic respiratory failure, multiple vertebral compression fractures, CAD, hypertension, hyperlipidemia, lumbar stenosis, GERD presented with complaint of chest pain since 1 week. As per the patient she has been having intermittent chest pain midsternal, associated with shortness of breath, gradually worsening since 1 week. Denies any complaint of fever, cough, dizziness, palpitations, bowel or urinary complaints. Denies any history of recent travel or sick contact. She lives at home with her daughter, son-in-law and 3 grandkids. On arrival in the ER she was found to have pCO2 of 86 on ABG. Was started on BiPAP. WBC count 11.6 CTA chest negative for acute PE Chest x-ray negative for acute findings 2 sets of troponin was 20, 17 EKG was sinus rhythm at [address], [address]-T changes Respiratory panel pending Had a cardiac cath done in 06/01 which showed mild CAD ECHO 06/01 Normal left ventricular size and systolic function, EF 57 %. Moderate aortic valve regurgitation. Trace tricuspid valve regurgitation. No regional wall motion abnormalities. Estimated pulmonary artery peak systolic pressure 24 mmHg There is no pericardial effusion. There are no intracardiac masses. Hospital Course Hospital Course #COPD exacerbation-less likely ACS, and likely due to flulike syndrome 2 sets of troponins 20,17 EKG was normal sinus rhythm with no acute ST-T changes Received aspirin 324 mg x 1 Chest x-ray negative for acute findings CTA chest negative for acute PE DuoNeb x 2 Was started on BiPAP in ED. will take her off BiPAP and start on 4 L nasal cannula Will do IV azithromycin 500 mg daily for 3 doses IV Solu-Medrol 40 mg every 8 hours DuoNeb every 6 hours Budesonide inhalation twice daily RT assess and treat She was doing well on nasal canula and was transferred to medical floor for further care. she has been improving on IV solumedrol and antibiotics. was also started on iv ceftriaxone for UTI but culture showing mixed blake. hence will discharge on only azithromycin and steroid taper. Physical Exam Narrative: She is alert awake oriented x 3, in moderate respiratory distress Chest air entry equal on both sides, diffuse coarse rhonchi and occasional wheezing present, improved on left Cardiovascular normal heart sounds, no murmurs Abdomen soft nontender nondistended normal bowel sounds Extremities minimal lower extremity pitting edema present Discharge Data Studies Completed and Pending Completed Studies During Hospitalization Category Date Time Status CT angio chest PE protcl [id number] Stat Cat Scan 12/26/24 11:52 Completed XR chest 1V portable [id number] Stat Exams 12/26/24 11:12 Completed CV. echo complete* [id number] Stat Ultrasound 12/28/24 07:50 Completed Pending at discharge Category Date Time Status Blood Culture Stat Lab 12/26/24 12:06 Results Radiology Impressions Chest X-Ray 12/26/24 11:12 IMPRESSION: No focal lung consolidations. Chest CTA 12/26/24 11:52 IMPRESSION: 1. No evidence of pulmonary embolism. 2. Coronary artery calcifications 3. Ectatic dilatation of the ascending thoracic aorta measuring 42 mm at the level of the right main pulmonary artery. 4. New diffuse sclerotic lesion in the T3 vertebral body. Consider further evaluation with MRI of the thoracic spine with and without contrast. 5. Multilevel thoracic vertebral endplate deformities with compression fractures at T12 and T7, and vertebroplasty at L1. Findings consistent with chronic compression injuries and underlying osteopenia or osteoporosis. 6. Dilated pulmonary artery measuring 33 millimeters which can be seen with pulmonary arterial hypertension. Laboratory Results WBC 12.15 10^3/uL (3.29-11.43) H 12/29/24 05:37 RBC 3.86 10^6/uL (3.85-5.65) 12/29/24 05:37 Hgb 11.60 g/dL (11.27-16.99) 12/29/24 05:37 Hct 36.5 % (36-47) 12/29/24 05:37 MCV 94.6 fl (85-98) 12/29/24 05:37 MCH 30.1 pg (27-33) 12/29/24 05:37 MCHC 31.8 g/dL (30-55) 12/29/24 05:37 RDW 13.2 % (12.1-15.1) 12/29/24 05:37 Plt Count 257 10^3/cmm (157-399) 12/29/24 05:37 MPV 10.3 fL (7.4-10.4) 12/29/24 05:37 Neut % (Auto) 85.9 % 12/29/24 05:37 Lymph % (Auto) 5.5 % 12/29/24 05:37 [place] % (Auto) 7.4 % 12/29/24 05:37 Eos % (Auto) 0.0 % 12/29/24 05:37 Baso % (Auto) 0.1 % 12/29/24 05:37 Neut # (Auto) 10.44 10^3/uL (1.8-7.7) H 12/29/24 05:37 Lymph # (Auto) 0.7 10^3/uL (0.8-4.8) L 12/29/24 05:37 [place] # (Auto) 0.9 10^3/uL (0.2-0.9) 12/29/24 05:37 Eos # (Auto) 0.0 10^3/uL (0.0-0.8) 12/29/24 05:37 Baso # (Auto) 0.0 10^3/uL (0.0-0.1) 12/29/24 05:37 Nucleated RBC % (auto) 0 % 12/29/24 05:37 Nucleated RBCs # 0.0 /100WBC 12/29/24 05:37 Specimen Type Arterial 12/27/24 13:40 Sample Site Radial, right 12/27/24 13:40 ABG pH 7.54 (7.35-7.45) H 12/27/24 13:40 ABG pCO2 54.7 mmHg (35-45) H 12/27/24 13:40 ABG pO2 62.3 mmHg (80.0-100.0) L 12/27/24 13:40 ABG PO2/FiO2 Ratio 173 12/27/24 13:40 ABG HCO3 46.3 mmol/L (22-26) H 12/27/24 13:40 ABG O2 Saturation 94.4 12/27/24 13:40 ABG Base Excess 20.4 mmol/L (-2.0-2.0) H 12/27/24 13:40 Rudy Test Pos 12/27/24 13:40 A-a O2 Gradient 16.7 mmHg (5-10) H 12/27/24 13:40 Hematocrit 41.8 % (37-47) 12/27/24 13:40 Hgb O2 Saturation 92.2 % (95-100) L 12/27/24 13:40 Carboxyhemoglobin 1.3 %THgb (0.4-20.1) 12/27/24 13:40 Methemoglobin 1.0 % (0.4-1.5) 12/27/24 13:40 Total Hemoglobin 13.6 g/dL (12-16) 12/27/24 13:40 Sodium 131.0 mmol/L (131-143) 12/27/24 13:40 Potassium 3.6 mmol/L (3.5-5.0) 12/27/24 13:40 Glucose 235.0 mg/dL (70-115) H 12/27/24 13:40 Ionized Calcium 1.2 mmol/L (1.1-1.4) 12/27/24 13:40 O2 Delivery Device None 12/27/24 13:40 O2 Liters/Min 4.0 % 12/27/24 13:40 FiO2 36.0 % 12/27/24 13:40 Test Facility Engineer ID Pao 12/27/24 13:40 Sodium 137 mmol/L (136-145) 12/29/24 05:37 Potassium 3.8 mmol/L (3.5-5.1) 12/29/24 05:37 Chloride 93 mmol/L (98-107) L 12/29/24 05:37 Carbon Dioxide 35 mmol/L (22-29) H 12/29/24 05:37 Anion Gap 12.8 (5-19) 12/29/24 05:37 BUN 15 mg/dL (8-23) 12/29/24 05:37 Creatinine 0.7 mg/dL (0.5-0.9) 12/29/24 05:37 GFR Calculation 85.1 mL/min (90-130) L 12/29/24 05:37 Glucose 123 mg/dL (65-115) H 12/29/24 05:37 Calculated Osmolality 286 mOsm/kg (285-295) 12/29/24 05:37 Lactic Acid 1.8 mmol/L (0.5-2.2) 12/26/24 11:20 Calcium 9.3 mg/dL (8.5-10.5) 12/29/24 05:37 Magnesium 1.9 mg/dL (1.7-2.3) 12/29/24 05:37 Total Bilirubin 0.2 mg/dL (0.15-1.2) 12/29/24 05:37 AST 10 U/L (0-32) 12/29/24 05:37 ALT 11 U/L (0-33) 12/29/24 05:37 Alkaline Phosphatase 66 U/L (35-105) 12/29/24 05:37 Troponin T Baseline 20 ng/L (0-10) H 12/26/24 11:20 Troponin T 120 Minute 17.09 ng/L (0-10) H 12/26/24 13:15 Delta Troponin T -2.91 ABS# (0-10) L 12/26/24 13:15 Troponin T Hi Sens 6Hr 11.77 ng/L (0-10) H 12/26/24 16:55 Troponin T Hi Sens 6Hr Delta -8.23 ng/L (0-12) L 12/26/24 16:55 NT-Pro-B Natriuret Pep 211 pg/mL (0-125) H 12/27/24 04:55 Total Protein 5.9 g/dL (6.6-8.7) L 12/29/24 05:37 Albumin 3.9 g/dL (3.5-5.2) 12/29/24 05:37 Globulin 2.0 g/dL (1.3-4.6) 12/29/24 05:37 TSH 0.49 uIU/mL (0.27-4.20) 12/27/24 04:55 Urine Color Dark yellow (Yellow) A 12/27/24 12:40 Urine Appearance Cloudy (CLEAR) A 12/27/24 12:40 Urine pH 6.5 (5-7) 12/27/24 12:40 Ur Specific [place] 1.026 (1.005-1.030) 12/27/24 12:40 Urine Protein 1+ (Negative) A 12/27/24 12:40 Urine Glucose (UA) Negative (Normal) 12/27/24 12:40 Urine Ketones Trace (Negative) 12/27/24 12:40 Urine Blood Negative (Negative) 12/27/24 12:40 Urine Nitrate Negative (Negative) 12/27/24 12:40 Urine Bilirubin Negative (Negative) 12/27/24 12:40 Urine Urobilinogen 1.0 mg/dL (Negative) 12/27/24 12:40 Ur Leukocyte Esterase 1+ (Negative) A 12/27/24 12:40 Urine RBC 3-5 /hpf (0-2) 12/27/24 12:40 Urine WBC 6-10 /hpf (0-5) 12/27/24 12:40 Ur Squamous Epith Cells 11-20 /hpf (0-5) H 12/27/24 12:40 Amorphous Sediment Not Reportable 12/27/24 12:40 Urine Bacteria 2+ /hpf (NONE) H 12/27/24 12:40 Hyaline Casts 11.97 /lpf 12/27/24 12:40 Influenza A (PCR) Negative (Negative) 12/26/24 13:45 Influenza Type B (PCR) Negative (Negative) 12/26/24 13:45 RSV (PCR) Negative (Negative) 12/26/24 13:45 SARS-CoV-2 (PCR) Negative (Negative) 12/26/24 13:45 Vitals Last Vital Signs Temp 97.5 F L 12/29/24 07:30 Pulse 98 12/29/24 11:11 Resp 20 H 12/29/24 11:11 BP 150/88 12/29/24 07:30 Pulse Ox 96 12/29/24 11:11 O2 Del Method Nasal Cannula 12/29/24 11:11 O2 Flow Rate 3 12/29/24 11:11 FiO2 30 12/29/24 03:49 Discharge Plan Discharge Patient Disposition: Home Health Service Condition: Stable Prescriptions: New ipratropium-albuterol 0.5 mg-3 mg(2.5 mg base)/3 mL Solution For Nebulization 3 ml inhalation Q4H.RESPIRATORY 30 Days Qty: 90 0RF nicotine 21 mg/24 hr Patch 24 Hour 1 patch transdermal DAILY Qty: 28 0RF azithromycin 500 mg tablet See Rx Instructions .ROUTE .COMPLEX Qty: 3 0RF Rx Instructions: For 500 mg dose pack: take 500 mg once daily for 3 days prednisone 10 mg tablet 10 mg PO DIRECTED Qty: 60 0RF Rx Instructions: see taper instructions, 60mg for 2 days, 50mg for 2 days, 40mg for 2 days, 30mg for 2 days 20 mg for 2 days and 10mg for 2 days Continued cyclobenzaprine 10 mg tablet 10 mg PO BID topiramate 25 mg tablet 25 mg PO BID fluoxetine [Prozac] 20 mg capsule 20 mg PO DAILY (DME) Nebulizer machine See Rx Instructions .Route .MEDSUPPLY Qty: 1 0RF Rx Instructions: As directed levothyroxine 100 mcg tablet 100 mcg PO DAILY Qty: 90 0RF clonidine HCl 0.1 mg tablet 0.1 mg PO DAILY PRN (Reason: hypertensive emergency) Qty: 90 1RF cholecalciferol (vitamin D3) 50 mcg (2,000 unit) tablet 2,000 unit PO DAILY Qty: 30 0RF Rx Instructions: AT 0800 Cosentyx Pen (2 Pens) 150 mg/mL pen injector 300 mg SUBCUT .[id number] Qty: 2 4RF furosemide 20 mg tablet See Rx Instructions .ROUTE .COMPLEX Qty: 315 0RF Dose Instruction: TAKE ONE TABLET BY MOUTH EVERY DAY; alternating with TWO EVERY DAY Rx Instructions: TAKE ONE TABLET BY MOUTH EVERY DAY; alternating with TWO EVERY OTHER DAY. nitroglycerin 0.4 mg tablet, sublingual 0.4 mg sublingual Q5M PRN (Reason: chest pain) Qty: 30 6RF Rx Instructions: do not exceed 3 doses per episode prednisone 10 mg tablet 10 mg PO DAILY Qty: 30 1RF atorvastatin 40 mg tablet 40 mg PO QPM carvedilol 25 mg tablet 25 mg PO BID potassium chloride 10 mEq tablet extended release 10 meq PO BID folic acid 1 mg tablet 1 mg PO DAILY isosorbide mononitrate 30 mg tablet extended release 24 hr 30 mg PO BID clopidogrel 75 mg tablet 75 mg PO DAILY albuterol sulfate 90 mcg/actuation HFA aerosol inhaler 2 inh inhalation Q8H PRN (Reason: shortness of breath or wheezing) Qty: 8.5 3RF pantoprazole [Protonix] 40 mg tablet,delayed release (DR/EC) 40 mg PO DAILY Qty: 30 5RF oxycodone-acetaminophen 10-325 mg tablet 1 tab PO Q8H PRN (Reason: Pain) metoprolol tartrate 50 mg tablet 50 mg PO BID Qty: 60 5RF ondansetron 4 mg tablet,disintegrating 4 mg PO Q8H PRN (Reason: nausea and vomiting) Qty: 10 0RF Discontinued ipratropium-albuterol 0.5 mg-3 mg(2.5 mg base)/3 mL solution for nebulization 3 ml INHALATION QID PRN (Reason: Shortness Of Breath) Discharge Orders: Discharge Order (Routine); Ordered 12/29/24 Ordered By: Yamileth Ortiz Other Ambulatory Orders: DME: Nebulizer with Neb Kit (Order) Location: None Selected Ordered By: Yamileth Ortiz Referrals: [facility] ([facility]) [Outside] Afia Barrett NP [Primary Care Provider] - Joyce Rockwell MD [Staff Physician] - 01/12/25 Discharge Diet: Cardiac Discharge Activity: Increase activity as tolerated Patient Instructions: Opioid Safety Discharge Attestations Time Spent in Discharge Care*: less than 30 min Quality Metrics Clinical Quality Measures [ No reported AMI, CVA or VTE this stay] Coding Level of Care Code Acute Code for Chg Fwd Diagnoses Acute exacerbation of chronic obstructive airways disease J44.1 Compression fracture of T3 vertebra with routine healing, subsequent encounter S22.030D Encounter type: subsequent encounter Fracture healing: with routine healing Fracture of vertebra location: thoracic Thoracic vertebra fracture level: T3 Acute on chronic hypoxic respiratory failure J96.21 Atherosclerosis of [place] coronary artery of [place] heart with angina pectoris I25.119 [place] vs. transplanted heart: [place] heart Barretts esophagus K22.70 GERD (gastroesophageal reflux disease) K21.9 Mixed hyperlipidemia E78.2 Hyperlipidemia type: mixed hyperlipidemia Essential (primary) hypertension I10 COPD (chronic obstructive pulmonary disease) J44.9 Fibromyalgia M79.7 Time Spent (min) 20
--- NOTE | 2024-12-29 12:15 | PC.NURSE ---
Patient nurse asked patient which doctor she normallys sees and patient said don't worry she will call and make her own appointment so that she can do it around her daughters schedule.
--- NOTE | 2024-12-29 12:15 | PC.NURSE ---
Pt wished to schedule her own follow up appt with Afia Barrett NP as her daughter is the one who takes her and she needed to get with her prior to scheduling. Patients ride will not be here until around 1500 to pick her up today.
== END 2024-12-29 15:03 | disposition home health service (06) | DRG 189 ==
LOC: ER 12:25 → ICU 12:54 → MEDSURG 12-27 17:52
PROVIDERS: Admitting Provider Internal Medicine; Emergency Provider Family Medicine; PCP Nurse Practitioner Family; Visit Provider Internal Medicine
DX: J96.21 Acute and chronic respiratory failure with hypoxia (principal); J44.1 Chronic obstructive pulmonary disease with (acute) exacerbation; N39.0 Urinary tract infection, site not specified; J96.22 Acute and chronic respiratory failure with hypercapnia; S22.030D Wedge compression fracture of third thoracic vertebra, subsequent encounter for fracture with routine healing; X58.XXXD Exposure to other specified factors, subsequent encounter; I25.10 Atherosclerotic heart disease of native coronary artery without angina pectoris; K22.70 Barrett's esophagus without dysplasia; K21.9 Gastro-esophageal reflux disease without esophagitis; E78.2 Mixed hyperlipidemia; I10 Essential (primary) hypertension; M79.7 Fibromyalgia; M48.061 Spinal stenosis, lumbar region without neurogenic claudication; F17.210 Nicotine dependence, cigarettes, uncomplicated; E87.6 Hypokalemia; I35.1 Nonrheumatic aortic (valve) insufficiency; E83.42 Hypomagnesemia; M06.00 Rheumatoid arthritis without rheumatoid factor, unspecified site; L40.50 Arthropathic psoriasis, unspecified; E89.0 Postprocedural hypothyroidism; Z99.81 Dependence on supplemental oxygen; Z79.02 Long term (current) use of antithrombotics/antiplatelets; Z79.891 Long term (current) use of opiate analgesic; Z87.01 Personal history of pneumonia (recurrent); Z86.73 Personal history of transient ischemic attack (TIA), and cerebral infarction without residual deficits
CPT/HCPCS: 36415; 36600; 71045; 71275; 80051; 80053; 81001; 82330; 82805; 83605; 83735; 83880; 84443; 84484; 85025; 87040; 87086; 87637; 93005; 93306; 94640; 94660; 94664; 96365; 96372; 96374; 96376; 99291; J0456; J0696; J1650; J2919; J3475; J3480; J3490; J7050; J9999